=== PATIENT | female | born 1965 | race Caucasian/White ===

== ENCOUNTER 2023-03-19 13:42 | Inpatient (IN) ==
[2023-03-19] MEDS ORDERED: FAMOTIDINE 20MG IV PUSH 20 MG/5 ML SYR IV STA (14:11)
[2023-03-19] MEDS ORDERED: ONDANSETRON INJ 2 MG/ML 2 ML VIAL IV STA ×2 (14:11→15:56)
[2023-03-19] MEDS ORDERED: SODIUM CHLORIDE 0.9% 1,000 ML IV SCH (14:15)
[2023-03-19 14:31] LABS: Basophils # (auto) 0.06 K/uL (0.00-0.20); Basophils % (auto) 0.7 %; Eosinophils # (auto) 0.01 K/uL (0.00-0.50); Eosinophils % (auto) 0.1 %; Hematocrit (blood only) 21.4 % (37.0-47.0); Immature Granulocytes # (auto) 0.03 K/uL (0.01-0.20); Immature Granulocytes % (auto) 0.4 %; Lymphocytes # (auto) 1.02 K/uL (1.20-3.40); Lymphocytes % (auto) 12.4 %; Mean Corpuscular Hemoglobin 26.5 pg (25.0-34.0); Mean Corpuscular Hgb Conc 32.7 g/dL (32.0-36.0); Mean Corpuscular Volume 81.1 fL (80.0-100.0); Mean Platelet Volume 11.7 fL (9.4-12.4); Monocytes # (auto) 0.59 K/uL (0.11-0.59); Monocytes % (auto) 7.2 %; Neutrophils % (auto) 79.2 %; Platelet Count 235 K/uL (130-400); RDW Coefficient of Variation 16.5 % (11.5-14.5); RDW Standard Deviation 48.2 fL (36.4-46.3); Red Blood Count 2.64 M/uL (4.20-5.40); White Blood Count 8.21 K/ul (4.8-10.8)
--- NOTE | 2023-03-19 14:42 | XRay Report ---
XR chest 1V portable HISTORY: 58 years-old Female GIB acute GI bleed COMPARISON: None TECHNIQUE: AP view of the chest FINDINGS: Cardiac mediastinal and hilar silhouettes are within normal limits. Mild bibasilar densities suggesti ve of atelectasis with likely chronic interstitial coarsening. No pneumothorax, pleural effusion or p ulmonary edema. Bones appear grossly intact. IMPRESSION: No acute process. ACT 112: Negative or not required by law. The above report was generated using voice recognition software. It may contain grammatical, syntax o r spelling errors. Electronically signed by: Yifan Jackson M.D. 03/19/2023 2:41 PM
[2023-03-19 14:56] LABS: Alanine Aminotransferase 8 U/L (7-52); Albumin Globulin Ratio 1.2 (0.9-2); Alkaline Phosphatase 50 U/L (34-104); Anion Gap 9 (3-11); Aspartate Aminotransferase 17 U/L (13-39); BUN Creatinine Ratio 60.4 (10-20); Bilirubin Direct 0.2 mg/dl (0-0.2); Bilirubin,Total 0.9 mg/dl (0.2-1.0); Blood Urea Nitrogen 64 mg/dl (6-23); Calcium 7.9 mg/dl (8.6-10.3); Carbon Dioxide 30 mmol/L (21-32); Chloride 103 mmol/L (98-107); Creatinine Clr Calc Pharmacy 46.4 ml/min; Est GFR (Non-African American) 57.8 ml/min; Globulin 2.6 gm/dl (2.5-4.0); Glucose 127 mg/dl (70-99(Fasting)); Lipase 37 U/L (11-82); Magnesium 1.2 mg/dl (1.7-2.4); Potassium 3.7 mmol/L (3.5-5.1); Sodium 142 mmol/L (136-145); Total Protein 5.6 gm/dl (6.0-8.3)
[2023-03-19 15:03] LABS: Troponin I High Sensitivity 9.8 pg/ml (0-14)
[2023-03-19 15:05] LABS: INR 1.3 (0.9-1.1); Partial Thromboplastin Ratio 0.9; Partial Thromboplastin Time 24 Seconds (21-31); Prothrombin Time 14.1 Seconds (9.0-12.0)
[2023-03-19] MEDS ORDERED: OCTREOTIDE ACETATE 50 MCG in SYRINGE 9.5 ML IV STA (15:10)
[2023-03-19] MEDS ORDERED: PANTOprazole 80 MG in DEXTROSE 5% 100 ML IV ONE (15:10)
[2023-03-19] MEDS ORDERED: STAT IV/IM STA (15:10)
[2023-03-19] MEDS ORDERED: PANTOPRAZOLE BOLUS/DRIP IV STA (15:10)
[2023-03-19 15:11] LABS: Hypersegmented Neutrophils 1+; Hypochromasia Present; Ovalocytes 1+
--- NOTE | 2023-03-19 15:12 | Emergency Department Note ---
Impression & Plan Acute GI hemorrhage, Cirrhosis, Esophageal varices, Autoimmune hepatitis, Symptomatic anemia, Hypomagnesemia ED Provider Note NAME: KAYLA VERA AGE: 58 SEX: F ARRIVES VIA: Ambulance INFORMANT: Patient ED PROVIDER(S): Catrachito Dominique MD CHIEF COMPLAINT: GIB bleeding. PLAN: Disposition: Admit MEDICAL DECISION MAKING: The patient is a pleasant 58-year-old woman with a past medical history of autoimmune hepatitis, cirrhosis of the liver, portal hypertension and esophageal and rectal varices, history of GI bleeding, history of intestinal AVMs, chronic hypoxic respiratory failure secondary to COPD on home oxygen, pulmonary hypertension who presents to the emergency department via EMS and then accompanied by friends for evaluation of bloody emesis and black stool that began early this morning and has persisted with several episodes of bloody vomit. Patient reports that this last occurred in December when she was admitted to [facility] and has typically gone for her care for her other episodes of GI bleeding. She reports she elected to come to our facility because she felt that "they did not figure it out there". However review of the [facility] record demonstrates that she did have a colonoscopy where AVMs were noted to not be bleeding but received argon plasma coagulation (APC) treatments for prevention. The patient denies being on anticoagulation. She otherwise denies any recent fevers, chills, cough, congestion, urinary symptoms. On evaluation the patient is uncomfortable but no acute distress, afebrile with soft/low blood pressure, 95/55 (MAP 68) and mentating normally. She appears clinically dry. She has mild pallor. Abdomen is nontender. EKG without overt acute ischemia. Chest x-ray negative for acute cardiopulmonary process per my preliminary independent interpretation. WBC 8.2 within normal limits. H/H 7/21.4 which is decreased from most recently available H/H of 11.4/40.5. Platelets within normal limits. INR 1.3. Chemistry without metabolic acidosis. BUN is elevated at 64 and so consistent with upper GI bleeding. Magnesium 1.2 with IV repletion initiated. Positive troponin 9.8, within normal limits. Lipase not elevated. Respiratory viral panel/[employer] was negative. Treatment was initiated with IV fluid hydration, famotidine, Protonix bolus and drip, octreotide bolus and drip and antiemetics. CT of the abdomen pelvis was performed and demonstrates known cirrhosis with abdominal varicosities and evidence of portal hypertension though no ascites. Distal esophageal and gastric varicosities are noted with layering hyperdense material within the stomach likely secondary to bleeding varicosities. There is no bowel obstruction or pneumoperitoneum. No evidence of likely enteritis is seen. Following CT the patient did have an episode of dark bloody emesis per RN which was Gastroccult positive. Additionally, she eventually did have a dark bloody bowel movement. Given the patient's active GI bleeding with downtrending hemoglobin to 7.0 and low blood pressure/hypotension patient was consented for blood transfusion and ordered for 2 units of PRBCs to transfuse with an additional 2 units to hold. Subsequently, the patient did remain hemodynamically stable following initial IV fluid hydration with 2 L normal saline and initiation of blood transfusion. Case was discussed with Dr. Urrutia, [facility] hospitalist, who will evaluate the patient for admission. Case was discussed with Dr. Larry, GI on-call. Appreciate consultation and recommendations. Agrees with current treatment/resuscitation and plan will be for scope in the morning. Admitting team updated. Triage Nursing notes reviewed and agree them. Prior/external medical records reviewed Vital Signs: reviewed Differential diagnosis: Diverticulosis, AVM, coagulopathy, colitis, inflammatory bowel disease, malignancy, Katya-Glover tear, esophagitis, peptic ulcer disease, variceal bleed, gastritis, epistaxis, fissure, hemorrhoids, as well as other pathologies. ER treatment provided: See below. Diagnostics interpreted by me: ECG: Sinus rhythm with short HI, 85 bpm, no ectopy, no overt ST elevation or depression, QTc 697, QRS 74 Cardiac Monitoring: An order for continuous cardiac monitoring was placed and demonstrated Sinus rhythm with short HI, 85 bpm, no ectopy. Laboratory studies: See below Imaging studies: See below Consultation(s): Dr. Larry, GI on-call Dr. Urrutia [facility] HPI: The patient is a pleasant 58-year-old woman with a past medical history of autoimmune hepatitis, cirrhosis of the liver, portal hypertension and esophageal and rectal varices, history of GI bleeding, history of intestinal AVMs, chronic hypoxic respiratory failure secondary to COPD on home oxygen, pulmonary hypertension who presents to the emergency department via EMS and then accompanied by friends for evaluation of bloody emesis and black stool that began early this morning and has persisted with several episodes of bloody vomit. Patient reports that this last occurred in December when she was admitted to [facility] and has typically gone for her care for her other episodes of GI bleeding. She reports she elected to come to our facility because she felt that "they did not figure it out there". However review of the [facility] record demonstrates that she did have a colonoscopy where AVMs were noted to not be bleeding but received argon plasma coagulation (APC) treatments for prevention. The patient denies being on anticoagulation. She otherwise denies any recent fevers, chills, cough, congestion, urinary symptoms. ROS: See above HPI for pertinent positives & negatives. A total of 10 systems reviewed and were otherwise negative. VITALS:See Below PHYSICAL EXAMINATION: GENERAL: Awake, alert, fatigued/uncomfortable-appearing, in no distress HENT: Normocephalic, atraumatic. Oropharynx with dry mucous membranes and otherwise unremarkable. EYES: Normal conjunctiva. Sclera non-icteric. NECK: Supple. No nuchal rigidity. FROM. No JVD. RESPIRATORY: Clear to auscultation. CARDIAC: Regular rate, normal rhythm. Extremities warm and well perfused. Pulses equal. ABDOMEN: Soft, non-distended. No tenderness to palpation. No rebound or guarding. No masses. RECTAL: Deferred. MUSCULOSKELETAL: Chest examination reveals no tenderness. The back is symmetrical on inspection without obvious abnormality. There is no CVA tenderness to palpation. No joint edema. LOWER EXTREMITIES: Calves are equal size bilaterally and non-tender. No edema. No discoloration. NEURO: Normal sensorium. No sensory or motor deficits noted. SKIN: Mild pallor. No rash or jaundice noted. ED COURSE: Critical Care: I have personally spent greater than 75 minutes of critical care time in the direct management of this patient. This includes bedside care, interpretation of diagnostic studies, and testing, discussion with consultants, patient, and family members, and other required patient management activities. This 75 minutes is in excess of all separately billable procedures. Catrachito Dominique MD Past Med/Surg History Medical History Chronic hypoxic respiratory failure COPD (chronic obstructive pulmonary disease) AVM (arteriovenous malformation) Pulmonary HTN SLE (systemic lupus erythematosus related syndrome) Autoimmune hepatitis Esophageal varices Cirrhosis Acute GI hemorrhage Family History Other Family history non-contributory Social History Smoking Status: Former smoker Feels Safe at Home: Yes Home Meds Home Medications Medication Instructions Recorded Confirmed albuterol sulfate 90 mcg/actuation 2 puff inhalation BID PRN Wheezing 03/19/23 03/19/23 aerosol inhaler ambrisentan 10 mg tablet 10 mg PO DAILY 03/19/23 03/19/23 calcium citrate 200 mg (950 mg) 400 mg PO BID 03/19/23 03/19/23 tablet ferrous sulfate 325 mg (65 mg 325 mg PO BID 03/19/23 03/19/23 iron) tablet (Iron (ferrous sulfate)) fluticasone furoate 200 1 inh inhalation DAILY 03/19/23 03/19/23 mcg-vilanterol 25 mcg/dose inhalation powder (Breo Ellipta) fluticasone propionate 50 2 spray intranasal BID 03/19/23 03/19/23 mcg/actuation nasal spray,suspension gabapentin 300 mg capsule 600 mg HS 03/19/23 03/19/23 lactulose 10 gram/15 mL (15 mL) 30 ml PO TID PRN Constipation 03/19/23 03/19/23 oral solution levothyroxine 150 mcg tablet 150 mcg DAILY 03/19/23 03/19/23 magnesium chloride 64 mg See Rx Instructions .Route .COMPLEX 03/19/23 03/19/23 tablet,extended release mycophenolate mofetil 500 mg tablet 500 mg PO BID 03/19/23 03/19/23 nadolol 40 mg tablet 40 mg QAM 03/19/23 03/19/23 omeprazole 20 mg tablet,delayed 20 mg PO BID 03/19/23 03/19/23 release potassium chloride 20 mEq 20 meq PO DAILY 03/19/23 03/19/23 tablet,extended release spironolactone 100 mg tablet See Rx Instructions .Route .COMPLEX 03/19/23 03/19/23 tadalafil (pulm. hypertension) 20 40 mg QAM 03/19/23 03/19/23 mg tablet (pulmonary hypertension) tiotropium bromide 18 mcg capsule 1 cap inhalation 03/19/23 with inhalation device (Spiriva with HandiHaler) torsemide 20 mg tablet See Rx Instructions .Route .COMPLEX 03/19/23 03/19/23 tramadol 50 mg tablet 100 mg Q6H 03/19/23 03/19/23 trazodone 50 mg tablet 50 mg HS 03/19/23 03/19/23 Results & Data (ED) Vital Signs Vital Signs - 24 hr 03/19/23 13:46 03/19/23 14:07 03/19/23 14:18 Temperature 37.3 C Temperature Source Oral Pulse Rate 84 95 H Pulse Rate [Apical] 90 Pulse Rhythm Pulse Strength Respiratory Rate 16 17 15 Respiratory Effort / Characteristics Non-Labored Spontaneous Non-Labored Spontaneous Respiratory Depth Normal Normal Blood Pressure 95/55 L Blood Pressure [Right Arm] 95/65 L Blood Pressure Mean 68 Blood Pressure Mean [Right Arm] 75 Pulse Oximetry 81 L 91 92 Oxygen Delivery Method Room Air Nasal Cannula Nasal Cannula Oxygen Flow Rate 4 4 Sepsis Recent Fever Within 48 Hours No Sepsis New/Unexplained Change in Mental Status No Sepsis Action Taken by Nursing No Action Required 03/19/23 16:07 03/19/23 16:22 03/19/23 18:00 Temperature 36.8 C Temperature Source Axillary Pulse Rate 79 Pulse Rate [Apical] 83 87 Pulse Rhythm Pulse Strength Respiratory Rate 14 22 Respiratory Effort / Characteristics Respiratory Depth Blood Pressure Blood Pressure [Right Arm] 127/86 89/47 L Blood Pressure Mean Blood Pressure Mean [Right Arm] 99 61 Pulse Oximetry 95 92 Oxygen Delivery Method Nasal Cannula Nasal Cannula Oxygen Flow Rate 3 3 Sepsis Recent Fever Within 48 Hours Sepsis New/Unexplained Change in Mental Status Sepsis Action Taken by Nursing 03/19/23 18:11 03/19/23 18:26 03/19/23 18:41 Temperature 36.8 C 37.2 C 36.9 C Temperature Source Axillary Oral Oral Pulse Rate 83 83 83 Pulse Rate [Apical] Pulse Rhythm Pulse Strength Respiratory Rate 18 19 18 Respiratory Effort / Characteristics Respiratory Depth Blood Pressure 89/47 L 85/53 L 99/57 L Blood Pressure [Right Arm] Blood Pressure Mean 61 63 71 Blood Pressure Mean [Right Arm] Pulse Oximetry 92 91 93 Oxygen Delivery Method Oxygen Flow Rate 3 3 3 Sepsis Recent Fever Within 48 Hours Sepsis New/Unexplained Change in Mental Status Sepsis Action Taken by Nursing 03/19/23 19:11 03/19/23 19:37 03/19/23 20:00 Temperature 36.9 C 37 C 37.5 C Temperature Source Oral Oral Oral Pulse Rate 84 83 76 Pulse Rate [Apical] Pulse Rhythm Regular Pulse Strength Normal Respiratory Rate 15 15 15 Respiratory Effort / Characteristics Respiratory Depth Blood Pressure 100/58 L 92/53 L 82/45 L Blood Pressure [Right Arm] Blood Pressure Mean 72 66 57 Blood Pressure Mean [Right Arm] Pulse Oximetry 94 93 93 Oxygen Delivery Method Oxygen Flow Rate 3 3 4 Sepsis Recent Fever Within 48 Hours Sepsis New/Unexplained Change in Mental Status Sepsis Action Taken by Nursing 03/19/23 20:00 03/19/23 20:15 03/19/23 20:27 Temperature 37.1 C Temperature Source Oral Pulse Rate 78 71 Pulse Rate [Apical] 78 Pulse Rhythm Pulse Strength Respiratory Rate 12 12 Respiratory Effort / Characteristics Respiratory Depth Blood Pressure 103/56 L Blood Pressure [Right Arm] 103/56 L Blood Pressure Mean 71 Blood Pressure Mean [Right Arm] 71 Pulse Oximetry 94 94 Oxygen Delivery Method Nasal Cannula Oxygen Flow Rate 3 3 Sepsis Recent Fever Within 48 Hours Sepsis New/Unexplained Change in Mental Status Sepsis Action Taken by Nursing 03/19/23 20:30 03/19/23 21:00 03/19/23 21:30 Temperature 37 C 37 C 37.1 C Temperature Source Oral Oral Oral Pulse Rate 71 79 75 Pulse Rate [Apical] Pulse Rhythm Pulse Strength Respiratory Rate 18 17 18 Respiratory Effort / Characteristics Respiratory Depth Blood Pressure 94/63 L 89/63 L 97/61 L Blood Pressure [Right Arm] Blood Pressure Mean 73 71 73 Blood Pressure Mean [Right Arm] Pulse Oximetry 100 93 93 Oxygen Delivery Method Oxygen Flow Rate 3 3 3 Sepsis Recent Fever Within 48 Hours Sepsis New/Unexplained Change in Mental Status Sepsis Action Taken by Nursing Laboratory Data Attestation: I reviewed the patient's lab results. 03/19/23 14:17 03/19/23 14:17 Lab Results 03/19/23 03/19/23 03/19/23 Range/Units 14:17 14:38 17:23 WBC 8.21 (4.8-10.8) K/ul RBC 2.64 L (4.20-5.40) M/uL Hgb 7.0 L (12.0-16.0) g/dl Hct 21.4 L (37.0-47.0) % MCV 81.1 (80.0-100.0) fL MCH 26.5 (25.0-34.0) pg MCHC 32.7 (32.0-36.0) g/dL RDW Std Deviation 48.2 H (36.4-46.3) fL RDW Coeff of Paras 16.5 H (11.5-14.5) % Plt Count 235 (130-400) K/uL MPV 11.7 (9.4-12.4) fL Immature Gran % (Auto) 0.4 % Neut % (Auto) 79.2 % Lymph % (Auto) 12.4 % [place] % (Auto) 7.2 % Eos % (Auto) 0.1 % Baso % (Auto) 0.7 % Reticulocyte % (Auto) 1.4 (0.5-2.0) % Neut # (Auto) 6.50 (1.40-6.50) K/uL Lymph # (Auto) 1.02 L (1.20-3.40) K/uL [place] # (Auto) 0.59 (0.11-0.59) K/uL Eos # (Auto) 0.01 (0.00-0.50) K/uL Baso # (Auto) 0.06 (0.00-0.20) K/uL Reticulocyte # 0.04 (0.02-0.10) 10^6/uL Immature Gran # (Auto) 0.03 (0.01-0.20) K/uL Hypersegmented Neuts 1+ Hypochromasia Present Ovalocytes 1+ PT 14.1 H (9.0-12.0) Seconds INR 1.3 H (0.9-1.1) APTT 24 (21-31) Seconds PTT Ratio 0.9 Sodium 142 (136-145) mmol/L Potassium 3.7 (3.5-5.1) mmol/L Chloride 103 (98-107) mmol/L Carbon Dioxide 30 (21-32) mmol/L Anion Gap 9 (3-11) BUN 64 H (6-23) mg/dl Creatinine 1.06 (0.6-1.2) mg/dl Est Cr Clr Drug Dosing 46.4 ml/min Est GFR ( Amer) 67.0 ml/min Est GFR (Non-Af Amer) 57.8 ml/min BUN/Creatinine Ratio 60.4 H (10-20) Glucose 127 H (70-99(Fasting)) mg/dl Calcium 7.9 L (8.6-10.3) mg/dl Magnesium 1.2 L (1.7-2.4) mg/dl Iron TNP Unsaturated IBC 148 L (155-355) mcg/dl Transferrin 246 (200-360) mg/dl Ferritin 19.4 (8-388) ng/ml Total Bilirubin 0.9 (0.2-1.0) mg/dl Direct Bilirubin 0.2 (0-0.2) mg/dl AST 17 (13-39) U/L ALT 8 (7-52) U/L Alkaline Phosphatase 50 (34-104) U/L Troponin I High Sens 9.8 (0-14) pg/ml Total Protein 5.6 L (6.0-8.3) gm/dl Albumin 3.0 L (3.4-5.0) gm/dl Globulin 2.6 (2.5-4.0) gm/dl Albumin/Globulin Ratio 1.2 (0.9-2) Lipase 37 (11-82) U/L POC Stool Occult Blood (Negative) Adenovirus (PCR) Not Detected (NotDetected) B. pertussis DNA (PCR) Not Detected (NotDetected) B.parapertussis DNA PCR Not Detected (NotDetected) C. pneumoniae DNA (PCR) Not Detected (NotDetected) Coronavirus OC43 (PCR) Not Detected (NotDetected) Coronavirus HKU1 (PCR) Not Detected (NotDetected) Coronavirus 229E (PCR) Not Detected (NotDetected) SARS-CoV-2 (PCR) Not Detected (NotDetected) Coronavirus NL63 (PCR) Not Detected (NotDetected) Human Metapneumovir PCR Not Detected (NotDetected) Influenza Type A (PCR) Not Detected (NotDetected) Influenza Type B (PCR) Not Detected (NotDetected) M. pneumoniae (PCR) Not Detected (NotDetected) Parainfluenza 1 (PCR) Not Detected (NotDetected) Parainfluenza 2 (PCR) Not Detected (NotDetected) Parainfluenza 3 (PCR) Not Detected (NotDetected) Parainfluenza 4 (PCR) Not Detected (NotDetected) RSV (PCR) Not Detected (NotDetected) Entero/Rhino (PCR) Not Detected (NotDetected) Blood Type AB Positive Blood Type Recheck AB Positive Antibody Screen NEGATIVE Crossmatch See Detail 03/19/23 Range/Units 18:55 WBC (4.8-10.8) K/ul RBC (4.20-5.40) M/uL Hgb (12.0-16.0) g/dl Hct (37.0-47.0) % MCV (80.0-100.0) fL MCH (25.0-34.0) pg MCHC (32.0-36.0) g/dL RDW Std Deviation (36.4-46.3) fL RDW Coeff of Paras (11.5-14.5) % Plt Count (130-400) K/uL MPV (9.4-12.4) fL Immature Gran % (Auto) % Neut % (Auto) % Lymph % (Auto) % [place] % (Auto) % Eos % (Auto) % Baso % (Auto) % Reticulocyte % (Auto) (0.5-2.0) % Neut # (Auto) (1.40-6.50) K/uL Lymph # (Auto) (1.20-3.40) K/uL [place] # (Auto) (0.11-0.59) K/uL Eos # (Auto) (0.00-0.50) K/uL Baso # (Auto) (0.00-0.20) K/uL Reticulocyte # (0.02-0.10) 10^6/uL Immature Gran # (Auto) (0.01-0.20) K/uL Hypersegmented Neuts Hypochromasia Ovalocytes PT (9.0-12.0) Seconds INR (0.9-1.1) APTT (21-31) Seconds PTT Ratio Sodium (136-145) mmol/L Potassium (3.5-5.1) mmol/L Chloride (98-107) mmol/L Carbon Dioxide (21-32) mmol/L Anion Gap (3-11) BUN (6-23) mg/dl Creatinine (0.6-1.2) mg/dl Est Cr Clr Drug Dosing ml/min Est GFR ( Amer) ml/min Est GFR (Non-Af Amer) ml/min BUN/Creatinine Ratio (10-20) Glucose (70-99(Fasting)) mg/dl Calcium (8.6-10.3) mg/dl Magnesium (1.7-2.4) mg/dl Iron Unsaturated IBC (155-355) mcg/dl Transferrin (200-360) mg/dl Ferritin (8-388) ng/ml Total Bilirubin (0.2-1.0) mg/dl Direct Bilirubin (0-0.2) mg/dl AST (13-39) U/L ALT (7-52) U/L Alkaline Phosphatase (34-104) U/L Troponin I High Sens (0-14) pg/ml Total Protein (6.0-8.3) gm/dl Albumin (3.4-5.0) gm/dl Globulin (2.5-4.0) gm/dl Albumin/Globulin Ratio (0.9-2) Lipase (11-82) U/L POC Stool Occult Blood Positive A (Negative) Adenovirus (PCR) (NotDetected) B. pertussis DNA (PCR) (NotDetected) B.parapertussis DNA PCR (NotDetected) C. pneumoniae DNA (PCR) (NotDetected) Coronavirus OC43 (PCR) (NotDetected) Coronavirus HKU1 (PCR) (NotDetected) Coronavirus 229E (PCR) (NotDetected) SARS-CoV-2 (PCR) (NotDetected) Coronavirus NL63 (PCR) (NotDetected) Human Metapneumovir PCR (NotDetected) Influenza Type A (PCR) (NotDetected) Influenza Type B (PCR) (NotDetected) M. pneumoniae (PCR) (NotDetected) Parainfluenza 1 (PCR) (NotDetected) Parainfluenza 2 (PCR) (NotDetected) Parainfluenza 3 (PCR) (NotDetected) Parainfluenza 4 (PCR) (NotDetected) RSV (PCR) (NotDetected) Entero/Rhino (PCR) (NotDetected) Blood Type Blood Type Recheck Antibody Screen Crossmatch Administered Medications Octreotide Acetate 500 mcg/ (Sodium Chloride) 100.5 mls @ 10.05 mls/hr IV .Q10H PAVEL Stop: 04/18/23 15:14 Last Admin: 03/19/23 15:54 Dose: 50 mcg/hr, 10.1 mls/hr Documented By: YUSUF Pantoprazole Sodium 40 mg/ (Dextrose) 100 mls @ 20 mls/hr IV Q5H PAVEL Stop: 04/18/23 15:29 Last Admin: 03/19/23 16:01 Dose: 8 mg/hr, 20 mls/hr Documented By: YUSUF Discontinued Medications Sodium Chloride (Nss) 1,000 mls @ 999 mls/hr IV .Q1H1M PAVEL Stop: 03/19/23 15:15 Last Infusion: 03/19/23 17:07 Dose: Infused Documented By: Admin: 03/19/23 15:13 Dose: 999 mls/hr Documented By: YUSUF Famotidine (Pepcid 20mg Iv Push) 20 mg in 5 mls @ 2.5 mls/min IV NOW STA Stop: 03/19/23 14:12 Last Admin: 03/19/23 15:12 Dose: 2.5 mls/min Documented By: YUSUF Pantoprazole Sodium 80 mg/ (Dextrose) 120 mls @ 400 mls/hr IV NOW ONE Stop: 03/19/23 15:27 Last Infusion: 03/19/23 16:37 Dose: Infused Documented By: Admin: 03/19/23 16:00 Dose: 400 mls/hr Documented By: YUSUF Magnesium Sulfate/Dextrose (Magnesium Sulfate / D5w) 1 gm in 100 mls @ 100 mls/hr IV Q1H PAVEL Stop: 03/19/23 18:17 Last Infusion: 03/19/23 19:03 Dose: Infused Documented By: Admin: 03/19/23 17:48 Dose: 100 mls/hr Documented By: Infusion: 03/19/23 17:48 Dose: Infused Documented By: Admin: 03/19/23 16:50 Dose: 100 mls/hr Documented By: JIMMIE Ioversol (Optiray 320 500ml) 94 ml IV ONCE ONE Stop: 03/19/23 15:46 Last Admin: 03/19/23 15:45 Dose: 94 ml Documented By: HARLEY Octreotide Acetate (Octreotide Bolus From Bag) 50 mcg IV ONE ONE Stop: 03/19/23 16:01 Last Admin: 03/19/23 15:55 Dose: 50 mcg Documented By: YUSUF Ondansetron HCl (Ondansetron Inj 2 Mg/Ml 2 Ml Vial) 4 mg IV NOW STA Stop: 03/19/23 14:12 Last Admin: 03/19/23 15:48 Dose: Not Given Documented By: YUSUF Ondansetron HCl (Ondansetron Inj 2 Mg/Ml 2 Ml Vial) 4 mg IV NOW STA Stop: 03/19/23 15:57 Last Admin: 03/19/23 15:58 Dose: 4 mg Documented By: YUSUF Imaging Data Radiologist's Impression: Chest X-Ray 03/19/23 14:11 XR chest 1V portable HISTORY: 58 years-old Female GIB acute GI bleed COMPARISON: None TECHNIQUE: AP view of the chest FINDINGS: Cardiac mediastinal and hilar silhouettes are within normal limits. Mild bibasilar densities suggestive of atelectasis with likely chronic interstitial coarsening. No pneumothorax, pleural effusion or pulmonary edema. Bones appear grossly intact. IMPRESSION: No acute process. ACT 112: Negative or not required by law. The above report was generated using voice recognition software. It may contain grammatical, syntax or spelling errors. Electronically signed by: Yifan Jackson M.D. 03/19/2023 2:41 PM Abdomen/Pelvis CT 03/19/23 15:[address] WITH IV CONTRAST CT DOSE: 349.67 mGy.cm HISTORY: Acute generalized abdominal pain hematemesis/melena TECHNIQUE: Multiaxial CT images of the abdomen and pelvis were performed following the IV administration of 94 cc of Optiray, A dose lowering technique was utilized adhering to the principles of ALARA. COMPARISON STUDY: None. FINDINGS: Mild subsegmental bibasilar atelectasis versus scarring. No free air. Unremarkable spleen, pancreas and right adrenal gland. Mild benign nodular thickening of the left adrenal gland. Cholecystectomy. Patency of the hepatic and portal veins. Sclerotic liver with abdominal varicosities. Recanalized umbilical vein. No discrete hepatic mass identified. Unremarkable left kidney. Right-sided rotated pelvic kidney. There is urothelial thickening of the right renal collecting system. Unremarkable urinary bladder and uterus. Atherosclerosis of the aorta without aneurysm. Borderline enlarged retroperitoneal lymph nodes measure up to 10 mm with subcentimeter lymph nodes of the mesenteric root. Distal esophageal an gastric varicosities. Layering hyperdense material within the stomach. No bowel obstruction. Internal hemorrhoids are suggested. Scattered large and small bowel air-fluid levels. Mild wall thickening noted within portions of the large bowel. Normal appendix. Small bowel loops measure up to 2.6 cm. No acute fracture. IMPRESSION: 1. Cirrhosis with abdominal varicosities and recanalized umbilical vein compatible with portal venous hypertension. No ascites. 2. Distal esophageal and gastric varicosities noted with layering hyperdense material within the stomach, likely secondary to bleeding varicosities. 3. No bowel obstruction or pneumoperitoneum. 4. Scattered large and small bowel air-fluid levels noted which may be physiologic or represent an enteritis or ileus. 5. Areas of wall thickening within the large bowel, likely secondary to portal colopathy. 6. Mild right-sided urothelial thickening. Correlate with urinalysis in order to exclude infection. ACT 112: Negative or not required by law. The above report was generated using voice recognition software. It may contain grammatical, syntax or spelling errors. Electronically signed by: Yifan Jackson M.D. 03/19/2023 4:30 PM Discharge Plan Visit Data Chief Complaint: GI Bleed Stated Complaint: GI BLEED ED Provider: Catrachito Dominique Discharge Problem: Acute GI hemorrhage, Cirrhosis, Esophageal varices, Autoimmune hepatitis, Symptomatic anemia, Hypomagnesemia Forms Stand Alone Forms: My [facility] [email or web address] Prescriptions Prescriptions: No Action mycophenolate mofetil 500 mg tablet 500 mg PO BID levothyroxine 150 mcg tablet 150 mcg DAILY gabapentin 300 mg capsule 600 mg HS albuterol sulfate 90 mcg/actuation HFA aerosol inhaler 2 puff INHALATION BID PRN (Reason: Wheezing) ambrisentan 10 mg tablet 10 mg PO DAILY fluticasone furoate-vilanterol [Breo Ellipta] 200-25 mcg/dose blister with device 1 inh INHALATION DAILY torsemide 20 mg tablet See Rx Instructions .ROUTE .COMPLEX Rx Instructions: Take 4 tabs daily trazodone 50 mg tablet 50 mg HS spironolactone 100 mg tablet See Rx Instructions .ROUTE .COMPLEX Rx Instructions: 1.5 tabs qAM tramadol 50 mg tablet 100 mg Q6H nadolol 40 mg tablet 40 mg QAM fluticasone propionate 50 mcg/actuation spray,suspension 2 spray INTRANASAL BID tiotropium bromide [Spiriva with HandiHaler] 18 mcg capsule, w/inhalation device 1 cap INHALATION tadalafil (pulm. hypertension) 20 mg tablet 40 mg QAM Slow-Mag 64 mg Tablet Extended Release See Rx Instructions .ROUTE .COMPLEX Rx Instructions: 4 tabs qAM ferrous sulfate [Iron (ferrous sulfate)] 325 mg (65 mg iron) Tablet 325 mg PO BID calcium citrate 200 mg (950 mg) Tablet 400 mg PO BID omeprazole 20 mg Tablet,Delayed Release (Dr/Ec) 20 mg PO BID lactulose 10 gram/15 mL (15 mL) Solution 30 ml PO TID PRN (Reason: Constipation) potassium chloride 20 mEq Tablet Extended Release 20 meq PO DAILY Referrals Referrals: PCP,NO [Physician] - Discharge Problem: Cirrhosis Qualifiers: Hepatic cirrhosis type: unspecified hepatic cirrhosis Ascites presence: without ascites Qualified Code(s): K74.60 - Unspecified cirrhosis of liver Esophageal varices Qualifiers: Esophageal varices type: unspecified type Esophageal varices bleeding: with bleeding Qualified Code(s): I85.01 - Esophageal varices with bleeding
[2023-03-19 15:34] LABS: Adenovirus PCR Not Detected (NotDetected); Bordetella parapertussis PCR Not Detected (NotDetected); Bordetella pertussis PCR Not Detected (NotDetected); Chlamydia pneumoniae PCR Not Detected (NotDetected); Coronavirus 229E PCR Not Detected (NotDetected); Coronavirus CoV-2 (COVID19)PCR Not Detected (NotDetected); Coronavirus HKU1 PCR Not Detected (NotDetected); Coronavirus NL63 PCR Not Detected (NotDetected); Coronavirus OC43PCR Not Detected (NotDetected); Human Metapneumovirus PCR Not Detected (NotDetected); Influenza A PCR Not Detected (NotDetected); Influenza B PCR Not Detected (NotDetected); Mycoplasma pneumoniae PCR Not Detected (NotDetected); Parainfluenza Virus 1 PCR Not Detected (NotDetected); Parainfluenza Virus 2 PCR Not Detected (NotDetected); Parainfluenza Virus 3 PCR Not Detected (NotDetected); Parainfluenza Virus 4 PCR Not Detected (NotDetected); Respiratory Syncytial VirusPCR Not Detected (NotDetected); Rhinovirus/Enterovirus PCR Not Detected (NotDetected)
[2023-03-19] MEDS ORDERED: OPTIRAY 320 500ml IV ONE (15:45)
[2023-03-19] MEDS: OCTREOTIDE ACETATE 500 MCG in 0.9 % SODIUM CHLORIDE 100 ML IV SCH ×2 (15:54→23:02)
[2023-03-19] MEDS ORDERED: OCTREOTIDE BOLUS FROM BAG IV ONE (16:00)
[2023-03-19] MEDS: PANTOprazole 40 MG in DEXTROSE 5% MINI-B 100 ML IV SCH ×2 (16:01→21:34)
[2023-03-19] MEDS ORDERED: SODIUM CHLORIDE 0.9% 250 ML IV PRN (16:07)
[2023-03-19 16:25] LABS: Reticulocyte % 1.4 % (0.5-2.0); Reticulocytes # 0.04 10^6/uL (0.02-0.10)
--- NOTE | 2023-03-19 16:32 | CT Scan Report ---
ABDOMEN AND PELVIS CT WITH IV CONTRAST CT DOSE: 349.67 mGy.cm HISTORY: Acute generalized abdominal pain hematemesis/melena TECHNIQUE: Multiaxial CT images of the abdomen and pelvis were performed following the IV administrat ion of 94 cc of Optiray, A dose lowering technique was utilized adhering to the principles of ALARA. COMPARISON STUDY: None. FINDINGS: Mild subsegmental bibasilar atelectasis versus scarring. No free air. Unremarkable spleen, pancreas and right adrenal gland. Mild benign nodular thickening of the left adrenal gland. Cholecyst ectomy. Patency of the hepatic and portal veins. Sclerotic liver with abdominal varicosities. Recanal ized umbilical vein. No discrete hepatic mass identified. Unremarkable left kidney. Right-sided rotated pelvic kidney. There is urothelial thickening of the ri ght renal collecting system. Unremarkable urinary bladder and uterus. Atherosclerosis of the aorta wi thout aneurysm. Borderline enlarged retroperitoneal lymph nodes measure up to 10 mm with subcentimete r lymph nodes of the mesenteric root. Distal esophageal an gastric varicosities. Layering hyperdense material within the stomach. No bowel obstruction. Internal hemorrhoids are suggested. Scattered large and small bowel air-fluid levels. Mi ld wall thickening noted within portions of the large bowel. Normal appendix. Small bowel loops measu re up to 2.6 cm. No acute fracture. IMPRESSION: 1. Cirrhosis with abdominal varicosities and recanalized umbilical vein compatible with portal venous hypertension. No ascites. 2. Distal esophageal and gastric varicosities noted with layering hyperdense material within the stom ach, likely secondary to bleeding varicosities. 3. No bowel obstruction or pneumoperitoneum. 4. Scattered large and small bowel air-fluid levels noted which may be physiologic or represent an en teritis or ileus. 5. Areas of wall thickening within the large bowel, likely secondary to portal colopathy. 6. Mild right-sided urothelial thickening. Correlate with urinalysis in order to exclude infection. ACT 112: Negative or not required by law. The above report was generated using voice recognition software. It may contain grammatical, syntax o r spelling errors. Electronically signed by: Yifan Jackson M.D. 03/19/2023 4:30 PM
[2023-03-19 16:35] LABS: Transferrin 246 mg/dl (200-360); Unsaturated Iron Binding Cap 148 mcg/dl (155-355)
[2023-03-19] MEDS: MAGNESIUM SULFATE / D5W 1 GM/100 ML BAG IV SCH ×2 (16:50→17:48)
[2023-03-19 17:05] LABS: Ferritin 19.4 ng/ml (8-388)
--- NOTE | 2023-03-19 18:10 | History & Physical Report ---
Date of Service March 19, 2023 Assessment & Plan (1) Acute GI hemorrhage: (2) Cirrhosis: (3) Esophageal varices: (4) Autoimmune hepatitis: (5) SLE (systemic lupus erythematosus related syndrome): (6) Pulmonary HTN: (7) AVM (arteriovenous malformation): (8) DDD (degenerative disc disease), thoracolumbar: (9) Insomnia: (10) COPD (chronic obstructive pulmonary disease): Plan Pt is a 58yoF with PMhx significant for cirrhosis with esophageal varices and AVMs, autoimmune hepatitis, COPD on chronic oxygen, pulmonary HTN, DDD, Graves s/p thyroidectomy with postop hypothyroidism, and insomnia admitted with an acute GI bleed. Acute GI Bleed Cirrhosis with esophageal varices AVM Hypotension Pt with recurrent episodes of hematemesis and melena Hgb 7.[address] abdomen pelvis noting cirrhosis with abdominal varicosities and findings solorio ggestive of portal venous hypertension. Also noted "distal esophageal and gastric varicosities with layering hyperdense material within the stomach, likely secondary to bleeding varicosities." Started on ppi drip and octreotide in the ED, continue Currently being transfused 2U pRBCs by the ED, continue IV Rocephin 1g for GI prophylaxis in the setting of an acute GI Bleed with cirrhosis, continue daily Pt received a fluid bolus for hypotension, continue to monitor BP GI consult- appreciate recs -Case discussed with Dr. Larry on 03/19, advised to continue ppi and octreotide drip and keep pt NPO at this time in case there is a need for emergent scope overnight if there is an acute bleed. In the setting of acute GI bleed with Hypotension, will hold home torsemide, nadolol and spironolactone. Appreciate GI recs for when to resume. Once able to take PO, resume the following: pulmonary HTN- continue home tadalafil (or formulary alternative) and ambrisentan COPD- continue home oxygen and inhalers Hypothyroidism- continue home levothyroxine Autoimmune hepatitis, SLE- continue home cellcept DDD- continue home gabapentin, tramadol Insomnia- continue home trazodone DVT prophylaxis: SCDs in setting of acute GI bleed requiring transfusion CODE STATUS: Full code Diet: Currently NPO Dispo: PCU/tele History of Present Illness Chief Complaint: hematemesis Primary Care Provider: Reggie Eddy MD Pt is a 58yoF with PMhx significant for cirrhosis with esophageal varices and AVMs, autoimmune hepatitis, COPD on chronic oxygen, pulmonary HTN, DDD, Graves s/p thyroidectomy with postop hypothyroidism, and insomnia admitted with an acute GI bleed. Pt notes that she had a similar episode a few months ago requiring admission to [facility]. States that she had a colonoscopy then that showed nonbleeding AVMs. Chart review shows that she was treated with argon therapy at that time (argon plasma coagulation). States that about 3AM this morning she started having repeated episodes of bloody emesis, notes 6 episodes in all at home and 1 in the ED. Also had dark stools. Denies dizziness, chest pain, SOB. States that she was told to increase her torsemide dose recently due to swelling. Follows with a logging assistant for pulm HTN. Recently discharged on 2L of oxygen to use with ambulation and at rest as well as at nighttime. Takes lactulose on a prn basis, states when she feels constipated. Notes she typically has a BM every day. Denies episodes of melena in the ED. Home Medications Medication Instructions Recorded Confirmed Type albuterol sulfate 90 mcg/actuation 2 puff inhalation BID PRN Wheezing 03/19/23 03/19/23 History aerosol inhaler ambrisentan 10 mg tablet 10 mg PO DAILY 03/19/23 03/19/23 History calcium citrate 200 mg (950 mg) 400 mg PO BID 03/19/23 03/19/23 History tablet ferrous sulfate 325 mg (65 mg 325 mg PO BID 03/19/23 03/19/23 History iron) tablet (Iron (ferrous sulfate)) fluticasone furoate 200 1 inh inhalation DAILY 03/19/23 03/19/23 History mcg-vilanterol 25 mcg/dose inhalation powder (Breo Ellipta) fluticasone propionate 50 2 spray intranasal BID 03/19/23 03/19/23 History mcg/actuation nasal spray,suspension gabapentin 300 mg capsule 600 mg HS 03/19/23 03/19/23 History lactulose 10 gram/15 mL (15 mL) 30 ml PO TID PRN Constipation 03/19/23 03/19/23 History oral solution levothyroxine 150 mcg tablet 150 mcg DAILY 03/19/23 03/19/23 History magnesium chloride 64 mg See Rx Instructions .Route .COMPLEX 03/19/23 03/19/23 History tablet,extended release mycophenolate mofetil 500 mg tablet 500 mg PO BID 03/19/23 03/19/23 History nadolol 40 mg tablet 40 mg QAM 03/19/23 03/19/23 History omeprazole 20 mg tablet,delayed 20 mg PO BID 03/19/23 03/19/23 History release potassium chloride 20 mEq 20 meq PO DAILY 03/19/23 03/19/23 History tablet,extended release spironolactone 100 mg tablet See Rx Instructions .Route .COMPLEX 03/19/23 03/19/23 History tadalafil (pulm. hypertension) 20 40 mg QAM 03/19/23 03/19/23 History mg tablet (pulmonary hypertension) tiotropium bromide 18 mcg capsule 1 cap inhalation 03/19/23 History with inhalation device (Spiriva with HandiHaler) torsemide 20 mg tablet See Rx Instructions .Route .COMPLEX 03/19/23 03/19/23 History tramadol 50 mg tablet 100 mg Q6H 03/19/23 03/19/23 History trazodone 50 mg tablet 50 mg HS 03/19/23 03/19/23 History Past Med/Surg History Social History Smoking Status: Former smoker Feels Safe at Home: Yes Review of Systems Review of Systems: All systems reviewed & are unremarkable except as noted in HPI & below Physical Exam Physical Exam: General: Alert, oriented. No acute distress Skin: No noted rashes or bruises Psych: Appropriate mood and affect Neuro: No gross deficits HEENT: NC/AT Chest: Nontender to palpation. CV: RRR Resp: Breath sounds clear bilaterally, no increased effort of breathing. Abdomen:Soft, nontender, nondistended. Extremities: No edema in lower extremities bilaterally. Results & Data Results & Data Vital Signs (Past 12 Hours) Vital Signs Temp Pulse Pulse Resp BP BP Pulse Ox 03/19/23 18:00 36.8 C 87 22 89/47 L 92 03/19/23 16:22 79 03/19/23 16:07 83 14 127/86 95 03/19/23 14:18 95 H 15 92 03/19/23 14:07 90 17 95/65 L 91 03/19/23 13:46 37.3 C 84 16 95/55 L 81 L O2 Del Method O2 Flow Rate 03/19/23 18:00 Nasal Cannula 3 03/19/23 16:22 03/19/23 16:07 Nasal Cannula 3 03/19/23 14:18 Nasal Cannula 4 03/19/23 14:07 Nasal Cannula 4 03/19/23 13:46 Room Air Diagnostic Findings Chest X-Ray 03/19/23 14:11 XR chest 1V portable HISTORY: 58 years-old Female GIB acute GI bleed COMPARISON: None TECHNIQUE: AP view of the chest FINDINGS: Cardiac mediastinal and hilar silhouettes are within normal limits. Mild bibasilar densities suggestive of atelectasis with likely chronic interstitial coarsening. No pneumothorax, pleural effusion or pulmonary edema. Bones appear grossly intact. IMPRESSION: No acute process. ACT 112: Negative or not required by law. The above report was generated using voice recognition software. It may contain grammatical, syntax or spelling errors. Electronically signed by: Yifan Jackson M.D. 03/19/2023 2:41 PM Abdomen/Pelvis CT 03/19/23 15:[address] WITH IV CONTRAST CT DOSE: 349.67 mGy.cm HISTORY: Acute generalized abdominal pain hematemesis/melena TECHNIQUE: Multiaxial CT images of the abdomen and pelvis were performed following the IV administration of 94 cc of Optiray, A dose lowering technique was utilized adhering to the principles of ALARA. COMPARISON STUDY: None. FINDINGS: Mild subsegmental bibasilar atelectasis versus scarring. No free air. Unremarkable spleen, pancreas and right adrenal gland. Mild benign nodular thickening of the left adrenal gland. Cholecystectomy. Patency of the hepatic and portal veins. Sclerotic liver with abdominal varicosities. Recanalized umbilical vein. No discrete hepatic mass identified. Unremarkable left kidney. Right-sided rotated pelvic kidney. There is urothelial thickening of the right renal collecting system. Unremarkable urinary bladder and uterus. Atherosclerosis of the aorta without aneurysm. Borderline enlarged retroperitoneal lymph nodes measure up to 10 mm with subcentimeter lymph nodes of the mesenteric root. Distal esophageal an gastric varicosities. Layering hyperdense material within the stomach. No bowel obstruction. Internal hemorrhoids are suggested. Scattered large and small bowel air-fluid levels. Mild wall thickening noted within portions of the large bowel. Normal appendix. Small bowel loops measure up to 2.6 cm. No acute fracture. IMPRESSION: 1. Cirrhosis with abdominal varicosities and recanalized umbilical vein compatible with portal venous hypertension. No ascites. 2. Distal esophageal and gastric varicosities noted with layering hyperdense material within the stomach, likely secondary to bleeding varicosities. 3. No bowel obstruction or pneumoperitoneum. 4. Scattered large and small bowel air-fluid levels noted which may be physiologic or represent an enteritis or ileus. 5. Areas of wall thickening within the large bowel, likely secondary to portal colopathy. 6. Mild right-sided urothelial thickening. Correlate with urinalysis in order to exclude infection. ACT 112: Negative or not required by law. The above report was generated using voice recognition software. It may contain grammatical, syntax or spelling errors. Electronically signed by: Yifan Jackson M.D. 03/19/2023 4:30 PM
[2023-03-19] MEDS ORDERED: cefTRIAXone SODIUM 1,000 MG in DEXTROSE 5 % MINI-B 50 ML IV STA (20:34)
--- OUTSIDE RECORDS SUMMARY | 2023-03-19 22:26 | External Medical Summary | Summary of Care ---
Author Name Unknown Organization [facility] Address [address] [place] [address] Phone [phone] Care Team Providers Care Restoration Technician Name Role Phone Reggie Eddy DO Primary Care Provid er Encounter Details Date Type Department Care Team (Late st Contact Info) Description 03/16/2023 Telephone Pulmonary Medicine, [place] [address] [place] [address] Twin Hayden MD [address] [place] [address] Allergies Active Allergy Reactions Criticality Noted Date Comments Hydromorphone Hcl Itching Medium 11/09/2015 Environmental Low 05/04/2010 Pollen -asthmatic attacks documented as of this encounter (statuses as of 03/16/2023) Medications Medication Sig Dispensed Refills Start Date End Date Status Ascorbic Acid (VITAMIN C-CORWIN HIPS) 1000 MG TABS Take 1 Tablet by mouth in the morning. 0 Active Ferrous Sulfate 325 (65 Fe) MG Oral Tablet (Feosol) Take 1 Tab by mouth 2 times a day. 60 Tab 11 06/13/2020 Active Nebulizer Device For use with duoneb treatment 1 Each 0 06/13/2020 Active Calcium Citrate 200 MG Oral TabletIndications:Hy pocalcemia Take 400 mg by mouth 2 times a day. 120 Tab 0 10/09/2020 Active Lactulose 10 GM/15ML Oral Solution (Constulose)Indicati ons:Cirrhosis of liver with ascites, unspecified hepatic cirrhosis type TAKE 30 ML BY MOUTH 3 TIMES A DAY 2838 mL 5 05/10/2021 Active Additional Information Patient taking differently: 20 g Oral PRN, Constipation, Reported on 12/21/2022 Magnesium Chloride 64 MG Oral Tablet Delayed Release (Mag-64)Indications: Hypomagnesemia Take by mouth 4 Tablets in the morning. 360 Tablet 3 10/25/2021 Active Klor-Con M20 20 MEQ Oral Tablet Extended Release (Potassium Chloride Gianna ER) TAKE 2 TABLETS BY MOUTH IN THE MORNING. 180 Tablet 1 11/19/2021 Active Albuterol Sulfate HFA 108 (90 Base) MCG/ACT Inhalation Aerosol SolutionIndications: Sinobronchitis Inhale 2 Puffs by mouth every 4 hours as needed for Shortness of Breath or Wheezing. 18 g 5 03/11/2022 Active Spiriva HandiHaler 18 MCG Inhalation Capsule (tiotropium bromide) Inhale 1 Capsule by mouth in the morning. . Do not swallow capsule.. 30 Capsule 5 05/20/2022 Active Gabapentin 300 MG Oral Capsule (Neurontin)Indicatio ns:DDD (degenerative disc disease), cervical,DDD (degenerative disc disease), thoracic,DDD (degenerative disc disease), lumbar Take 2 Capsules by mouth at bedtime. Take one cap by mouth at bedtime for two weeks, then may increase to 2 caps at bedtimes 180 Capsule 1 06/20/2022 Active Fluticasone Furoate-Vilanterol 200-25 MCG/ACT Inhalation Aerosol Powder Breath Activated (BREO ellipta) Inhale 1 Puff by mouth in the morning. 60 Each 11 09/08/2022 Active Ipratropium-Albutero l 0.5-2.5 (3) MG/3ML Inhalation Solution (Duoneb) Inhale 3 mL via nebulizer in the morning and 3 mL at noon and 3 mL in the evening and 3 mL before bedtime. 3600 mL 11 09/09/2022 Active Additional Information Patient taking differently:3 mL [id number] PRN, Dyspnea, Reported on 12/21/2022 Mycophenolate Mofetil 500 MG Oral Tablet (Cellcept)Indication s:Autoimmune hepatitis (HCC) Take 1 Tablet by mouth in the morning and 1 Tablet before bedtime. 180 Tablet 1 09/09/2022 Active Fluticasone Propionate 50 MCG/ACT Nasal Suspension (Flonase)Indications :Nasal congestion Administer 2 Sprays into nostril in the morning. 48 mL 3 09/09/2022 Active Spironolactone 100 MG Oral Tablet (Aldactone)Indicatio ns:Esophageal varices in cirrhosis (HCC) TAKE 1 AND 1/2 TABLETS BY MOUTH EVERY DAY 135 Tablet 1 09/25/2022 Active Additional Information Patient taking differently: 150 mg Oral Daily(AM), TAKE 1 AND 1/2 TABLETS BY MOUTH EVERY DAY, Reported on 12/21/2022 Levothyroxine Sodium 150 MCG Oral Tablet (Levoxyl)Indications :Postoperative hypothyroidism TAKE 1 TABLET BY MOUTH DAILY IN THE MORNING. (AT LEAST 30 MIN PRIOR TO BREAKFAST OR OTHER MEDS) 90 Tablet 1 11/23/2022 Active Nadolol 40 MG Oral Tablet (Corgard)Indications :Rectal varices,Esophageal varices in cirrhosis (HCC) TAKE 1 TABLET BY MOUTH EVERY DAY IN THE MORNING 90 Tablet 1 11/23/2022 Active Tadalafil (PAH) 20 MG Oral Tablet Take 2 Tablets by mouth in the morning. 30 Tablet 11 12/30/2022 Active oxygen IN GAS 2 liters at night, at rest, and with ambulation 1 Each 0 12/30/2022 Active Additional Information Patient taking differently: 3 L/min(Oxygen) Nasal cannula HS, 2 liters with ambulation, Reported on 03/16/2023 Omeprazole 20 MG Oral Capsule Delayed Release (PriLOSEC)Indication s: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 Take 1 Capsule by mouth in the morning and 1 Capsule before bedtime. 60 Capsule 0 01/03/2023 Active traMADol HCl 50 MG Oral Tablet (Ultram)Indications: MEDICATION USE AGREEMENT,DDD (degenerative disc disease), cervical,DDD (degenerative disc disease), thoracic,DDD (degenerative disc disease), lumbar Take 2 Tablets by mouth every 6 hours as needed for Pain, Moderate. 240 Tablet 0 02/11/2023 Active traZODone HCl 50 MG Oral Tablet (Desyrel)Indications :Primary insomnia Take 1 Tablet by mouth at bedtime. 90 Tablet 1 02/10/2023 Active Ambrisentan 10 MG Oral Tablet (Letairis)Indication s:PAH (pulmonary artery hypertension) (HCC) TAKE 1 TABLET BY MOUTH 1 TIME A DAY. DO NOT HANDLE IF . DO NOT SPLIT, CRUSH, OR CHEW. AVOID INHALATION AND CONTACT WITH SKIN OR EYES. 30 Tablet 5 02/10/2023 Active Torsemide 20 MG Oral Tablet (Demadex)Indications :Cirrhosis of liver with ascites, unspecified hepatic cirrhosis type TAKE 2 TABLETS BY MOUTH EVERY MORNING 180 Tablet 1 02/16/2023 Active documented as of this encounter (statuses as of 03/16/2023) Active Problems Problem Noted Date Diagnosed Date Hematochezia 01/02/2023 Arteriovenous malformation (AVM) 01/02/2023 Lactic acidosis 12/31/2022 Iron deficiency anemia due to chronic blood loss 12/22/2022 Shock 12/21/2022 Pleural effusion 12/21/2022 Acute pulmonary edema 12/21/2022 Anemia 12/21/2022 Pain of upper abdomen 12/21/2022 Immunodeficiency 12/20/2022 Other cirrhosis of liver 03/16/2022 Raynaud's disease without gangrene 08/26/2021 Ovarian cyst, right 03/19/2021 Ovarian cyst, left 01/26/2021 Other specified disorders of adrenal gland 08/24 Pulmonary hypertension 06/30/2020 COPD, group C, by GOLD 2017 classification 06/15 Overview: Per COPD GOLD Classification Other emphysema 06/10/2020 Other ascites 12/23/2019 Portal hypertension 12/23/2019 Spinal stenosis of lumbar re gion without neurogenic claudication 08/15/2019 Pain aggravated by changing postions 08/15/2019 Prediabetes 03/18/2019 Overview: Per Prediabetes protocol Influenza vaccination declined 12/20/2018 Systemic lupus erythematosus 07/27/2017 Overview: Initial sx & Dx: sicca, Raynauds, rash o 1995: joint pain, weight loss, arm paresthesias, racing heart, (+) MARY and thyroid abn - saw Dr. Pantoja, dx with SLE and Grave's o Lost to follow up- moved to [place] o 2009: Dx with AIH: incomplete cirrhosis found incidentally at time of cholecystectomy when liver bx obtained; grade 1 varices; MARY , ASMA positive - Tx pred initially then Imuran 08/19 then MMF in 08/20 when she developed ascites o 2010: Rheum exam- not typical SLE sx- negative/normal C3/C4, SSA/SSB, centromere, CLINICAL QUALITY RN/Sm, ESR,CRP. dsDNA borderline. [place] unlikely SLE. o 2012: Seen again by Rheum- Dr. Jung- photosensitive rash and raynauds. Borderline dsDNA. [place] likely SLE, though possible AIH could explain (+) MARY. HCQ discussed but wanted to avoid by GI. o [id number]: multiple hospitalizations for ascites; returned to Rheum 2019- no objective synovitis Esophageal varices in cirrhosis 07/27/2017 MEDICATION USE AGREEMENT 06/13/2017 Disordered sleep 12/14/2016 Controlled substance agreement signed 09/15/2015 Acute on chronic respiratory failure with hypoxi a 06/12/2015 Bright red blood per rectum 12/20/2012 Overview: colonoscopy Normocytic anemia 12/19/2012 PPD positive, treated 12/17/2012 Serologic abnormality 07/05/2010 Esophageal reflux 05/19/2010 Postoperative hypothyroidism 01/23/2002 HISTORY OF TOBACCO USE 01/23/2002 Autoimmune hepatitis documented as of this encounter (statuses as of 03/16/2023) Resolved Problems Problem Noted Date Diagnosed Date Resolved Date Rhinovirus infection 06/08/2020 022 Oliguria 12/23/2019 12/26/2019 UTI (urinary tract infection) 12/07/2019 12/08/2019 Delirium 12/07/2019 12/08/2019 Hypophosphatemia 12/07/2019 03/16/2022 Hypokalemia 12/06/2019 12/08/2019 Hypocalcemia 12/06/2019 03/16/2022 Compensated metabolic alkalosis 12/06/2019 12/08/2019 Acute cystitis without hematuria 12/06/2019 12/08/2019 Numbness and tingling of both legs 08/15/2019 12/08/2019 Numbness and tingling in both hands 08/15/2019 12/08/2019 Influenza A 06/17/2015 05/31/2018 Rotator cuff syndrome 08/07/20142018 ADVANCE DIRECTIVE INFORMATION 05/06/2013 01/01/2019 Overview: No, Advance Directive brochure given to patient. Systemic lupus erythematosus 02/05/2013 02/24/2017 Rectal varices 12/20/2012 05/31/2018 Ulnar nerve entrapment at elbow 12/17/2012 05/31/2018 Esophageal varices in cirrhosis 12/17/2012 02/24/2017 Cataract 09/27/2012 05/31/2018 Overview: ICD-10 update of inactive term Polyarthropathy or polyarthr itis of multiple sites 07/05/2010 12/17/2012 Overview: ICD-10 update of inactive term Cirrhosis 03/16/2022 documented as of this encounter (statuses as of 03/16/2023) Immunizations Name Administration Dates Next Due HEP A - Hepatitis A (Adult > 18 yrs) 09/15/2015 HEP B - Hepatitis B (Dialysis/Immumocomp Pt) HepA Inact/HepB Recomb>=18yrs old 10/08/2012 Hepatitis B, 20+ yrs 09/15/2015 PPD 09/28/2010,09/07/2010 Pneumococcal Polysaccharide PPV23 (Pneumovax) TDAP (age 10 and older)(Boostrix) 09/05/2022,02/2015 documented as of this encounter Social History Tobacco Use Types Packs/Day Years Used Date Smoking Tobacco: Former Cigarettes 0.3 25 Smokeless Tobacco: Never Comments:5-6 a day Alcohol Use Standard Drinks/Week Comments No 0 (1 standard drink = 0.6 oz pur e alcohol) PHQ-2 Answer Date Recorded PHQ Adult Total Score 0 02/22/2023 Hunger Vital Sign Answer Date Recorded Within the past 12 months, y ou worried that your food would run out before you got the money to buy more. Never true 10/04/19 23 Within the past 12 months, t he food you bought just didn't last and you didn't have money to get more. Never true 10/03/2022 Sex and Gender Information Value Date Recorded Sex Assigned at Female 09/13/2018 9:34 AM EDT Gender Identity Female 09/13/2018 9:34 AM EDT Sexual Orientation Straight 09/13/2018 9: 34 AM EDT Job Start Date Occupation Industry Not on file Not on file Not on file documented as of this encounter Functional Status Functional Status Response Date of Assess ment Are you deaf or do you have serious difficulty h earing? No 12/31/2022 Are you blind or do you have serious difficulty seeing, even when wearing glasses? No 12/31/2022 Do you have serious difficul ty walking or climbing stairs? (5 years old or older) No 01/02/2023 Do you have difficulty dress ing or bathing? (5 years old or older) No 12/31/2022 Because of a physical, menta l, or emotional condition, do you have difficulty doing errands alone such as visiting a doctor s office or shopping? (15 years old or older) No 01/01/20 Cognitive Status Response Date of Assessm ent Because of a physical, menta l, or emotional condition, do you have serious difficulty concentrating, remembering, or making decisions? (5 years old or older) No 12/31/2022 documented as of this encounter Miscellaneous Notes * Telephone Encounter - Twin Hayden MD - 03/16/2023 2:41 PM EST Attempted calling patient to discuss blood work. Will try again. documented in this encounter Plan of Treatment Upcoming Encounters Date Type Department Care Team ([facility] Contact Info) Description 05/24/2023 10:00 AM EST Laboratory Laboratory Patient Service Wiley Ford, [address] [phone] [address] 05/31/2023 10:40 AM EST Office Visit [address] [phone] Reggie Eddy, [address] [place] [address] 06/19/2023 1:00 PM EDT Appointment Cardiac Studies [facility] [address] [place] [address] 07/03/2023 8:15 AM EDT Telemedicine [facility], [address] [id number] Fran French DO [address] [place] [address] 07/07/2023 9:00 AM EDT PulmDiagnostic Pulmonary Function Lab, [place] [address] [place], [place] [id number] 3, Pft Room [address] [place] [address] 07/07/2023 10:30 AM EDT Office Visit Pulmonary Medicine, [address] [phone] Twin Hayden MD [address], [place] [phone] Scheduled Procedures Name Priority Associated Diagnoses Date/Ti me ESOPHAGOGASTRODUODENOSCOPY ( EGD), FLEXIBLE, TRANSORAL, DIAGNOSTIC Recall Gastrointestinal hemorrhage, unspecified gastrointestinal hemorrhage type ESOPHAGOGASTRODUODENOSCOPY ( EGD), FLEXIBLE, TRANSORAL, DIAGNOSTIC Recall Jones's esophagus Family history of colon cancer Rectal varices COLONOSCOPY FLEXIBLE PROXIMA L DIAGNOSTIC Recall Jones's esophagus Family history of colon cancer Rectal varices ESOPHAGOGASTRODUODENOSCOPY ( EGD), FLEXIBLE, TRANSORAL, DIAGNOSTIC Recall Gastroesophageal reflux disease without esophagitis Health Maintenance Due Date Last Done Comments COVID-19 Vaccine (#1) 1970 Alpha-1 Antitrypsin 1983 Zoster Vaccines (1 of 2) 1984 HPV/Co-Test 1995 Pneumococcal Vaccine: Pediatrics (0 to 5 Years) and At-Risk Patients (6 to 64 Years) (2 - PCV) 12/25/2013 12/25/2012 *ADVANCE DIRECTIVE NOT ON FILE 07/09/2020 Cervical Cancer Screening 01/01/2022 Pap Smear 01/01/2022 01/01/2019, 07/09, 05/06/2013, Additional history exists HbA1c 09/20/2022 09/20/2021, 11/09, 02/28/2019, Additional history exists Influenza Vaccine (FLU shot) (#1) 2022 Mammogram 06/21/2023 06/20/2022, 04/11, 04/30/2019, Additional history exists O2 ASSESSMENT COMPLETED IN PAST YEAR FOR COPD 01/03/2024 01/02/2023 TSH 01/11/2024 01/10/2023, /0 06/2022, 12/21/2022, Additional history exists Depression Screening 02/23/2024 02/22/2023 Lipid Panel 02/29/2024 02/28/2019, 11/08, 10/08/2012, Additional history exists COLONOSCOPY-EVERY 3 YRS AGES 18-100 01/02/2026 01/02/2023, 01/02/2023, 12/23/2022, Additional history exists DTaP,Tdap,and Td Vaccines (3 - Td or Tdap) 09/05/2032 09/05/2022, 08/18/2014 Hepatitis B Completed 09/15/2015, 12/09, 10/08/2012 COLONOSCOPY-EVERY 5 YRS AGES 18-100 Discontinued 01/02/2023, 01/02/2023, 12/23/2022, Additional history exists GARDASIL-HPV IMMUNIZATION SERIES Aged Out No longer eligible based on patient's age to complete this topic MENINGOCOCCAL (MENACTRA/MENVEO) Aged Out No longer eligible based on patient's age to complete this topic documented as of this encounter Medical Devices Implanted Type Area Payroll Coordinator Device Identifier Shelf Expiration Date Model / Serial / Lot Lens 22.0 Sa60at - [id number] Implanted:Qty: 1 on 10/15/2012 at [facility] Left: Eye [employer] 10/07/2016 SA60AT / [id number] / Lens 22.0 Sa60at - [id number] Implanted:Qty: 1 on 11/29/2012 [place] [facility] [place] Eye [employer] 03/31/2017 SA60AT / [id number] / Duraclip 11mm Repositionable - [id number] Implanted:Qty: 1 on 05/11/2022 by Jeffrey Weber MD [place] [facility] [place] [employer] [id number] 01/29/2024 [id number] / / [id number] documented as of this encounter Advance Directives Latest Code Status on File Code Status Date Activated Date Inactivated Comments Full Code 12/31/2022 8:37 PM 01/03/2023 8:37 PM This order reflects the patients wishes and were consensually agreed upon. Question Answer Comments Discussion of Advance Directives occurred with: Patient Code Status History Code Status Date Activated Date Inactivated Comments Full Code 12/21/2022 1:08 AM 12/30/2022 8:18 PM This order reflects the patients wishes and were consensually agreed upon. Question Answer Comments Discussion of Advance Directives occurred with: Patient Full Code 03/19/2021 8:43 AM 03/19/2021 3:52 PM Thi s order reflects the patients wishes and were consensually agreed upon. Question Answer Comments Discussion of Advance Directives occurred with: Not Discussed Full Code 06/08/2020 10:24 PM 06/14/2020 7:33 PM This o rder reflects the patients wishes and were consensually agreed upon. Question Answer Comments Discussion of Advance Directives occurred with: Patient Full Code 12/23/2019 9:07 PM 12/26/2019 6:40 PM This order reflects the patients wishes and were consensually agreed upon. Question Answer Comments Discussion of Advance Directives occurred with: Patient/Family Does the patient have a Living Will? No Does the patient have Health Care Power of Highway Construction Inspector? No Care Teams Restoration Technician Relationship Specialty Start Date End Date Reggie Eddy DO [address] [place] [id number] PCP - General Internal Medicine 03/08/22 documented as of this encounter
--- OUTSIDE RECORDS SUMMARY | 2023-03-19 22:26 | External Medical Summary ---
Author Name Unknown Address Unknown Organization [id number]:[facility] [facility] [place] [address] [facility] [address] Laboratory Report Ordering Provider Test Date Status CONOR MARY 03/16/2023 11:37:19 Final Observation Date Value Abnormality Reference (Units ) Status SYNC LEUKOCYTES IN BLOOD BY AUTOMATED COUNT 03/16/2023 11:37:19 5.40 4.00-10.80 (K/uL) Final Segs 03/16/2023 11:37:19 57.2 40.0-75.0 (%) Final Lymphs % 03/16/2023 11:37:19 23.9 18.0-42.0 (%) Final Monos 03/16/2023 11:37:19 13.7 Above high normal 1.0-11.0 (%) Final Eosinophils 03/16/2023 11:37:19 3.3 0.0-6.0 (%) Final Basos 03/16/2023 11:37:19 1.7 0.0-2.0 (%) Final Immature Granulocyte, Percent 03/16/2023 11:37:19 0.2 0.0-2.0 (%) Final Absolute Segs 03/16/2023 11:37:19 3.09 1.80-7.70 (K/uL) Final Lymphs, absolute 03/16/2023 11:37:19 1.29 1.00-4.80 (K/ul) Final Monos, Abs 03/16/2023 11:37:19 0.74 0.00-1.10 (K/uL) Final Eos, Abs 03/16/2023 11:37:19 0.18 0.00-0.70 (K/uL) Final Basos, Abs 03/16/2023 11:37:19 0.09 0.00-0.20 (K/uL) Final Immature Granulocytes, Number 03/16/2023 11:37:19 0.01 0.00-0.20 (K/uL) Final Performing Location [facility] [place] [facility] [address] [place] [address]
--- OUTSIDE RECORDS SUMMARY | 2023-03-19 22:26 | External Medical Summary | Summary of Care ---
Author Name Unknown Organization [facility] Address [address] [place] [address] Phone [phone] Care Team Providers Care Senior Maintenance Machinist Name Role Phone Reggie Eddy DO Primary Care Provid er Reason for Visit * Reason Comments Outpatient Testing Encounter Details Date Type Department Care Team (Late st Contact Info) Description 03/16/2023 12:20 PM EST Laboratory Outpatient Laboratory, [place] [address] [place] [address] [place], Lab B1a [address] [place] [address] Arrived Allergies Active Allergy Reactions Criticality Noted Date [...] Active Additional Information Patient taking differently:3 mL [id number] PRN, Dyspnea, Reported on 12/21/2022 Mycophenolate Mofetil [...] o Lost to follow up- moved to [place] o 2009: Dx with AIH: incomplete cirrhosis found incidentally at time of cholecystectomy when liver bx obtained; grade 1 varices; MARY , ASMA positive - Tx pred initially then Imuran 08/19 then MMF in 08/20 when she developed ascites o 2010: Rheum exam- not typical SLE sx- negative/normal C3/C4, SSA/SSB, centromere, DISTANCE EDUCATION FACULTY LIAISON/Sm, ESR,CRP. dsDNA borderline. [place] unlikely SLE. o 2012: Seen again by Rheum- Dr. Jung- photosensitive rash and raynauds. Borderline dsDNA. [place] likely SLE, though possible AIH could explain (+) MARY. HCQ discussed but wanted to avoid by GI. o [phone]: multiple hospitalizations for ascites; returned to Rheum [...] No 12/31/2022 documented as of this encounter Plan of Treatment Upcoming Encounters Date Type Department Care Team (Late st Contact Info) Description 05/24/2023 10:00 AM EST Laboratory Laboratory Patient Service [address] [phone] [address] 05/31/2023 10:40 AM EST Office Visit [address] [phone] Reggie Eddy, [address] [address] 06/19/2023 1:00 PM EDT Appointment Cardiac Studies [facility], [facility] [address] [place] [address] 07/03/2023 8:15 AM EDT Telemedicine [facility] [address] [place], [place] [phone] Fran French, DO [address] [place], [place] [phone] 07/07/2023 9:00 AM EDT PulmDiagnostic Pulmonary Function Lab, [place] [address] [place] [address] 3, Pft Room [address] [place] [address] 07/07/2023 10:30 AM EDT Office Visit Pulmonary Medicine, [place] [address] [place] [address] Twin Hayden MD [address] [place], [place] [phone] Scheduled Procedures Name Priority Associated Diagnoses Date/Ti [...] FOR COPD 01/03/2024 01/02/2023 TSH 01/11/2024 01/10/2023, 10/0 06/2022, 12/21/2022, Additional history exists Depression Screening [...] this encounter Medical Devices Implanted Type Area Aerial Photograph Interpreter Device Identifier Shelf Expiration Date Model / Serial / Lot Lens 22.0 Sa60at - [id number] Implanted:Qty: 1 on 10/15/2012 at [facility] Left: Eye [employer] 10/07/2016 SA60AT / [id number] / Lens 22.0 Sa60at - [id number] Implanted:Qty: 1 on 11/29/2012 at [place] [facility] [place] Right: Eye [employer] 03/31/2017 SA60AT / [id number] / Duraclip 11mm Repositionable - [id number] Implanted:Qty: 1 on 05/11/2022 by Jeffrey Weber MD at [place]OSCOPY [facility] [place] [employer] [id number] 01/29/2024 [id number] / / [id number] documented as of this encounter Advance [...] the patient have Health Care Power of Supervisor Channel Process? No Care Teams Senior Maintenance Machinist Relationship Specialty Start Date End Date Reggie Eddy DO [address] [place] [address] PCP - General Internal Medicine 03/08/22 documented as of this encounter
--- OUTSIDE RECORDS SUMMARY | 2023-03-19 22:26 | External Medical Summary ---
Author Name Unknown Address Unknown Organization [id number]:[place] [facility] [place] [address] [facility] [address] Laboratory Report Ordering Provider Test Date Status CONOR MARY 03/16/2023 11:37:19 Final Observation Date Value Abnormality Reference (Units ) Status BUN 03/16/2023 11:37:19 18 6-20 (mg/dL) Final Creatinine 03/16/2023 11:37:19 1.2 Above high normal 0.5-1.0 (mg/dL) Final Glomerular filtration rate/1.73 sq M.predicted [Volume Rate/Area] in Serum, Plasma or Blood by Creatinine-based formula (CKD-EPI) 03/16/2023 11:37:19 55 Below low normal >=60 (mL/min) Final eGFR is calculated based on the CKD-EPI 2020 equation SODIUM 03/16/2023 11:37:19 139 135-146 (m mol/L) Final Potassium 03/16/2023 11:37:19 3.3 Below low normal 3.5 -5.1 (mmol/L) Final Cl 03/16/2023 11:37:19 101 98-107 (mm ol/L) Final CO2 03/16/2023 11:37:19 29 22-32 (mmo l/L) Final Anion gap 03/16/2023 11:37:19 9 7-15 (mmol /L) Final Glucose 03/16/2023 11:37:19 100 70-120 (mg /dL) Final Calcium 03/16/2023 11:37:19 9.0 8.4-10.2 ( mg/dL) Final Performing Location [facility] [facility] [place] [address] [facility] [address]
--- OUTSIDE RECORDS SUMMARY | 2023-03-19 22:26 | External Medical Summary ---
Author Name Unknown Address Unknown Organization [id number]:[facility] [place] [facility] [place] [address] [facility] [address] [place] [address] Laboratory Report Ordering Provider Test Date Status CONOR MARY 03/16/2023 11:37:19 Final Observation Date Value Abnormality Reference (Units ) Status WBC, Total 03/16/2023 11:37:19 5.40 4.00-10.80 (K/uL) Final RBC 03/16/2023 11:37:19 4.44 3.85-5.15 (M/uL) Final Hemoglobin 03/16/2023 11:37:19 11.6 Below low normal 12.0-15.3 (g/dL) Final HCT 03/16/2023 11:37:19 39.0 36.0-45.2 (%) Final MCV 03/16/2023 11:37:19 87.8 81.5-97.5 (fL) Final MCH 03/16/2023 11:37:19 26.1 27.0-34.0 (pg) Final MCHC 03/16/2023 11:37:19 29.7 32.0-36.0 (g/dL) Final RDW 03/16/2023 11:37:19 15.9 11.5-15.5 (%) Final Platelets 03/16/2023 11:37:19 282 140-400 (K/uL) Final MPV 03/16/2023 11:37:19 10.6 6.6-11.1 (fL) Final Nucleated erythrocytes/100 leukocytes [Ratio] in Blood by Automated count 03/16/2023 11:37:19 0 <=0 (/100 WBCs) Final Performing Location [facility] [place] [address] [place] [address]
--- OUTSIDE RECORDS SUMMARY | 2023-03-19 22:26 | External Medical Summary ---
Author Name Unknown Address Unknown Organization [id number]:[facility] [place] - [address] [place] [address] Laboratory Report Ordering Provider Test Date Status USMANCONOR 03/16/2023 11:37:19 Final Exclude Heart Failure: <300 pg/mL
Diagnose Heart Failure:
Age <50 yr: >450 pg/mL
50-75 yr: >900 pg/mL
>75 yr: >1800 pg/mL
GFR is 30-59 mL/min: >1200 pg/mL or Age- adjusted values
GFR <30 mL/min: do not use, not reliable

Prognostic threshold: 1000 pg/mL Observation Date Value Abnormality Reference (Units ) Status BNP, Pro-hormone 03/16/2023 11:37:19 164 <30 0 (pg/mL) Final Performing Location [facility]ATORY [facility] [place] - [facility] [address] [place] [address]
--- OUTSIDE RECORDS SUMMARY | 2023-03-19 22:26 | External Medical Summary | Summary of Care ---
Author Name Unknown Organization [facility] Address [address] [place] [address] Phone [phone] Care Team Providers Care Driver Service Technician Name Role Phone Reggie Eddy DO Primary Care Provid er Reason for Referral * Precert (Within 10 days (routine)) - Pending Review Specialty Diagnoses / Procedures Referred By Contac t Referred To Contact Cardiac Studies Diagnoses PAH (pulmonary artery hypertension) (HCC) Cirrhosis of liver with ascites, unspecified hepatic cirrhosis type Procedures ECHO, COMPLETE (2D), TRANS-THORACIC Twin Hayden MD [address] [place] [address] Referral ID Status Reason Start Date Expiration Date Visits Requested Visits Authorized [id number] Pending Review Precert 06/15/2023 999 999 Reason for Visit * Reason Comments Follow Up Encounter Details Date Type Department Care Team (Late st Contact Info) Description 03/16/2023 10:40 AM EST Office Visit Pulmonary Medicine, [place] [address] [place] [address] Twin Hayden MD [address] [place] [address] PAH (pulmonary artery hypertension) (HCC)*; Cirrhosis of liver with ascites, unspecified hepatic cirrhosis type Allergies Active Allergy Reactions Criticality Noted Date [...] Active Additional Information Patient taking differently:3 mL [id number] PRN, Dyspnea, Reported on 12/21/2022 Mycophenolate Mofetil [...] o Lost to follow up- moved to [place] o 2009: Dx with AIH: incomplete cirrhosis found incidentally at time of cholecystectomy when liver bx obtained; grade 1 varices; MARY , ASMA positive - Tx pred initially then Imuran 08/19 then MMF in 08/20 when she developed ascites o 2010: Rheum exam- not typical SLE sx- negative/normal C3/C4, SSA/SSB, centromere, BOOTMAKER/Sm, ESR,CRP. dsDNA borderline. Oxly unlikely SLE. o 2012: Seen again by Rheum- Dr. Jung- photosensitive rash and raynauds. Borderline dsDNA. Oxly likely SLE, though possible AIH could explain (+) MARY. HCQ discussed but wanted to avoid by GI. o 2022-7263: multiple hospitalizations for ascites; returned to Rheum [...] Former Cigarettes 0.3 25 Smokeless Tobacco: Never Tobacco Cessation:Counseling Given: Not Answered Comments:5-6 a day Alcohol Use Standard Drinks/Week Comments No 0 (1 standard drink = 0.6 oz pur e alcohol) PHQ-2 Answer Date Recorded PHQ Adult Total Score 0 02/22/2023 Hunger Vital Sign Answer Date Recorded Within the past 12 months, y ou worried that your food would run out before you got the money to buy more. Never true 10/04/19 Within the past 12 months, t he [...] on file documented as of this encounter Last Filed Vital Signs Vital Sign Reading Time Taken Comments Blood Pressure 107/57 03/16/2023 10:51 AM EST Pulse 63 03/16/2023 10:51 AM EST Temperature 36.1 C (97 F) 03/16/2023 10:51 AM EST Respiratory Rate - - Oxygen Saturation 89% 03/16/2023 10:51 AM EST RA Inhaled Oxygen Concentration - - Weight 50.8 kg (112 lb) 03/16/2023 10:51 AM EST Height - - Body Mass Index 18.08 12/31/2022 8:08 PM EDT documented in this encounter Functional Status Functional Status Response [...] No 12/31/2022 documented as of this encounter Progress Notes * Twin Hayden MD - 03/16/2023 10:40 AM EST Subjective Jazmín Blevins is a 58 year old female last seen in PH clinic in May 2022. HPI: Patient presents to Pulmonary Clinic by herself today. In good spirits, no change in her baseline exercise capacity. Patient was admitted in December twice for GI bleed. Colonoscopy showed angiodysplasia use which were cauterized. Patient's last hemoglobin was checked in January. At baseline exercise capacity. No dizziness, syncope with exertion Questionable compliance to oxygen with exertion however uses 3 L with sleep Currently on tadalafil and ambrisentan as per prior dosages. Initially not on any diuretics, currently on torsemide WHO functional class Vasodilators Tadalafil 40 mg daily 06/28 Ambrisentan 10 mg daiy 08/28 Diuretics Torsemide 20 mg 2 tablets once daily Spironolactone 100 mgonce daily Kcl Oxygen 3lpm with sleep, 2lpm with walk. PAP therapy none Exercise none PMH: Patient Active Problem List Diagnosis Code Postoperative hypothyroidism E89.0 HISTORY OF TOBACCO USE Z87.891 Esophageal reflux K21.9 Serologic abnormality R89.4 Autoimmune hepatitis (HCC) K75.4 PPD positive, treated R76.11 Normocytic anemia D64.9 Bright red blood per rectum K62.5 Acute on chronic respiratory failure with hypoxia (HCC) J96.21 Controlled substance agreement signed Z79.899 Disordered sleep G47.9 MEDICATION USE AGREEMENT [id number] Systemic lupus erythematosus (HCC) M32.9 Esophageal varices in cirrhosis (HCC) K74.60, I85.10 Influenza vaccination declined Z28.21 Prediabetes R73.03 Spinal stenosis of lumbar region without neurogenic claudication M48.061 Pain aggravated by changing postions R52 Other ascites R18.8 Portal hypertension (HCC) K76.6 Other emphysema (HCC) J43.8 COPD, group C, by GOLD 2017 classification (HCC) J44.9 Pulmonary hypertension (HCC) I27.20 Other specified disorders of adrenal gland (HCC) E27.8 Ovarian cyst, left N83.202 Ovarian cyst, right N83.201 Raynaud's disease without gangrene I73.00 Other cirrhosis of liver (HCC) K74.69 Immunodeficiency (HCC) D84.9 Shock (HCC) R57.9 Pleural effusion J90 Acute pulmonary edema (HCC) J81.0 Anemia D64.9 Pain of upper abdomen R10.10 Iron deficiency anemia due to chronic blood loss D50.0 Lactic acidosis E87.20 Hematochezia K92.1 Arteriovenous malformation (AVM) Q27.30 Current Outpatient Medications Medication Sig Dispense Refill Ascorbic Acid (VITAMIN C-CORWIN HIPS) 1000 MG TABS Take 1 Tablet by mouth in the morning. Ferrous Sulfate 325 (65 Fe) MG Oral Tablet (Feosol) Take 1 Tab by mouth 2 times a day. 60 Tab 11 Calcium Citrate 200 MG Oral Tablet Take 400 mg by mouth 2 times a day. 120 Tab 0 Lactulose 10 GM/15ML Oral Solution (Constulose) TAKE 30 ML BY MOUTH 3 TIMES A DAY (Patient taking differently: Take 30 mL by mouth as needed for Constipation.) 2838 mL 5 Magnesium Chloride 64 MG Oral Tablet Delayed Release (Mag-64) Take by mouth 4 Tablets in the morning. 360 Tablet 3 Klor-Con M20 20 MEQ Oral Tablet Extended Release (Potassium Chloride Gianna ER) TAKE 2 TABLETS BY MOUTH IN THE MORNING. 180 Tablet 1 Spiriva HandiHaler 18 MCG Inhalation Capsule (tiotropium bromide) Inhale 1 Capsule by mouth in the morning. . Do not swallow capsule.. 30 Capsule 5 Gabapentin 300 MG Oral Capsule (Neurontin) Take 2 Capsules by mouth at bedtime. Take one cap by mouth at bedtime for two weeks, then may increase to 2 caps at bedtimes 180 Capsule 1 Fluticasone Furoate-Vilanterol 200-25 MCG/ACT Inhalation Aerosol Powder Breath Activated (BREO ellipta) Inhale 1 Puff by mouth in the morning. 60 Each 11 Mycophenolate Mofetil 500 MG Oral Tablet (Cellcept) Take 1 Tablet by mouth in the morning and 1 Tablet before bedtime. 180 Tablet 1 Fluticasone Propionate 50 MCG/ACT Nasal Suspension (Flonase) Administer 2 Sprays into nostril in the morning. 48 mL 3 Spironolactone 100 MG Oral Tablet (Aldactone) TAKE 1 AND 1/2 TABLETS BY MOUTH EVERY DAY (Patient taking differently: Take 1.5 Tablets by mouth in the morning. TAKE 1 AND 1/2 TABLETS BY MOUTH EVERY DAY.) 135 Tablet 1 Levothyroxine Sodium 150 MCG Oral Tablet (Levoxyl) TAKE 1 TABLET BY MOUTH DAILY IN THE MORNING. (ATLEAST 30 MIN PRIOR TO BREAKFAST OR OTHER MEDS) 90 Tablet 1 Nadolol 40 MG Oral Tablet (Corgard) TAKE 1 TABLET BY MOUTH EVERY DAY IN THE MORNING 90 Tablet 1 Tadalafil (PAH) 20 MG Oral Tablet Take 2 Tablets by mouth in the morning. 30 Tablet 11 oxygen IN GAS 2 liters at night, at rest, and with ambulation (Patient taking differently: Use 3 L/min(Oxygen) as directed at bedtime. 2 liters with ambulation) 1 Each 0 Omeprazole 20 MG Oral Capsule Delayed Release (PriLOSEC) Take 1 Capsule by mouth in the morning and1 Capsule before bedtime. 60 Capsule 0 traMADol HCl 50 MG Oral Tablet (Ultram) Take 2 Tablets by mouth every 6 hours as needed for Pain, Moderate. 240 Tablet 0 traZODone HCl 50 MG Oral Tablet (Desyrel) Take 1 Tablet by mouth at bedtime. 90 Tablet 1 Ambrisentan 10 MG Oral Tablet (Letairis) TAKE 1 TABLET BY MOUTH 1 TIME A DAY. DO NOT HANDLE IF . DO NOT SPLIT, CRUSH, OR CHEW. AVOID INHALATION AND CONTACT WITH SKIN OR EYES. 30 Tablet 5 Torsemide 20 MG Oral Tablet (Demadex) TAKE 2 TABLETS BY MOUTH EVERY MORNING 180 Tablet 1 Nebulizer Device For use with duoneb treatment 1 Each 0 Albuterol Sulfate HFA 108 (90 Base) MCG/ACT Inhalation Aerosol Solution Inhale 2 Puffs by mouth every 4 hours as needed for Shortness of Breath or Wheezing. 18 g 5 Ipratropium-Albuterol 0.5-2.5 (3) MG/3ML Inhalation Solution (Duoneb) Inhale 3 mL via nebulizer in the morning and 3 mL at noon and 3 mL in the evening and 3 mL before bedtime. (Patient taking differently: Inhale 3 mL via nebulizer every 4 hours as needed for Dyspnea.) 3600 mL 11 No current facility-administered medications for this visit. Review of patient's allergies indicates: Allergen Reactions Dilaudid [Hydromorphone Hcl] Itching Environmental Pollen -asthmatic attacks Review of Systems Constitutional ROS: No change in weight, No weakness, No fatigue and No fevers, sweats, or chills Pulmonary ROS: As per HPI Cardiovascular ROS: No chest pain, no dyspnea on exertion, No orthopnea, No paroxysmal nocturnal dyspnea, no edema Gastrointestinal ROS: No abdominal pain,No significant heartburn, Musculoskeletal/Extremities ROS: No pain, redness or swelling on the joints Neurologic ROS: Normal balance, No headaches, No seizures and No weakness Endocrine ROS: No heat intolerance, No cold intolerance Psychiatric ROS: No depression, No anxiety Allergy/Immunologic ROS: As per HPI Sleep: no sleep disorders All other systems negative BP 107/57 | Pulse 63 | Temp 36.1 C (97 F) (Tympanic) | Wt 50.8 kg (112 lb) | LMP 07/09/2012 | SpO2 89% Comment: RA | BMI 18.08 kg/m | BSA 1.54 m Exam General: alert, healthy, no distress, well nourished, well developed Eyes: PERRLA, EOMI, Conjunctiva are pink and non-injected, sclera clear Oropharynx: no exudate, no erythema, lips, buccal mucosa, and tongue normal Heart: regular rate & rhythm, no murmurs, no gallops Lungs: chest symmetric with normal AP diameter, no chest deformities noted, no chest wall tenderness, lungs clear to auscultation, no wheeze, no crackles Abdomen: abdomen soft, non-tender, non-distended Neurologic: alert & oriented x 3 with fluent speech, Skin: skin color, texture, turgor are normal, no rashes or significant lesions on visualized areas Diagnostics Latest Reference Range & Units 12/21/22 01:25 12/28/22 08:46 01/10/23 10:58 BNP, NT-Pro <300 pg/mL 2,671 (H) 336 (H) 81 (H): Data is abnormally high Latest Reference Range & Units 08/28/20 13:25 03/14/22 14:16 FEV1/FVC Actual Pre % 64 55 FVC Actual Pre L 2.58 2.78 FVC Actual Pre %Predict % 74 80 FEV1 Actual Pre L 1.65 1.54 FEV1 Actual Pre %Predict % 59 56 TLC(Pleth) Actual Pre L 4.53 TLC (Pleth) Actual Pre %Predict % 86 DLCO Uncorrect Actual Pre ml/min/mmHg 14.90 8.32 DLCO Uncorrect Actual Pre %Predict % 70 39 6 Minute walk test Date Oxygen SpO2 Pre SpO2 post Carla Pre Carla Post Total distance 11/13/20 RA 97% 94% 2 4 410 meters 07/03/20 3 LPM 100% 89% 0.5 4 318 meters 05/21/21 RA 91 87 3 3.5 438 m 12/10/21 RA 91 86 0 1 396 m Echo 06/09/2020 There is severe pulmonary hypertension, severe tricuspid regurgitation. If clinically appropriate The right ventricular cavity is larger than the left ventricular cavity (4 chamber) indicating significant RV enlargement.The rightventricular systolic function is moderately reduced . Severe tricuspid regurgitation is present. Dilated IVC with reduced collapsability with sniff indicates an elevated right atrial pressure of 15mmHg. Severe pulmonary hypertension is present. The pulmonary artery systolic pressure is > 2/3 systemic systolic pressure. The qualitative LV ejection fraction is 55-59% (normal). ECHO 01/27/21 Normal LVEF, PASP of 55. RV size and function appear normal, TR max velocity of 3.5 m/s ECHO 08/18/21 Normal LVEF. RV cavity size is normal. RV function is normal. Severe TR, PASP of 50. TR max velocity of 3.2 m/s Echocardiogram, 05/09/2022 Normal left ventricular ejection fraction. Right ventricular size and function appear mild pulmonary hypertension, PASP of 47. Left atrium is moderately enlarged. Right atrium is normal. TR max velocity of 3.1 m/sec Echo from January 07, 2023. Normal left ventricular ejection fraction. Mildly reduced right ventricular systolic function. Severe tricuspid regurgitation. Left atrium is mildly enlarged. Right atrium is normal. Diastolic dysfunction of the left ventricle. Right ventricular cavity is mildly dilated. TR max velocity of 3.4 m/sec. RHC 06/30/20 PA 74/25 mPAP 41 Wedge 6 TPG 35 mm Hg CO - TD 4.21 Aakash's 2.97 PVR 11 Miller units Assessment: 1. Pulmonary arterial hypertension, WHO group I, on dual vasodilators therapy 2. Recent admission for lower GI bleed secondary to angiodysplasia in colon 3. Chronic hypoxic respiratory failure, 2 L with exercise and 3 L with sleep 4. SLE and autoimmune hepatitis currently on CellCept, 5. History of tobacco use, asthma, COPD, emphysematous phenotype Plan 1. Patient seems to be back to her baseline exercise capacity. Her echocardiogram was done in during her hospitalization where she was dealing with GI bleed. I would consider repeating echocardiogramin 3 months from now. Continue with current doses of tadalafil and ambrisentan. 2. We had a lengthy discussion regarding importance of compliance to oxygen. We will obtain 6 minute walk test on room air at next visit. In the interim patient encouraged to continue 2 L with exercise and 3 L with sleep 3. Patient will set up an appointment with Rheumatology. Continue with current dose of CellCept in the interim 4. Optimization of fluid overload status as per primary care . I would obtain blood work including proBNP and chemistry and hemoglobin today Patient will be seen back in Pulmonary clinic in 2 months in PH clinic, and was advised to contact me sooner with any questions, concerns or deteriorating symptoms. I spent a total of 45 minutes on the date of service in preparation, delivery, and documentation ofthe care provided to the patient, excluding any time spent on the performance of any procedure or separately billable services. Twin Hayden MD This chart was completed in part utilizing [employer] Speech Voice Recognition Software. Randomword insertions, pronoun errors, and incomplete sentences are an occasional consequence of this system due to software limitations, and ambient noise. Any questions or concerns about the content, text, or information contained within the body of this dictation should be directly addressed to the provider for clarification. documented in this encounter Plan of Treatment Upcoming Encounters Date Type Department Care Team (Late st Contact Info) Description 03/16/2023 12:20 PM EST Laboratory Outpatient Laboratory, [place] [address] [place] [address] [place], [address] [place] [address] Arrived 05/24/2023 10:00 AM EST Laboratory [facility], [address] [id number] [place], Lab [address] [address] 05/31/2023 10:40 AM EST Office Visit [facility] [address] [place] [address] Reggie Eddy, [address] [address] 06/19/2023 1:00 PM EDT Appointment Cardiac Studies [facility], [facility] [address] [place] [address] 07/03/2023 8:15 AM EDT Telemedicine [facility], [address] [address] Fran French, [address], [place] [id number] 07/07/2023 9:00 AM EDT PulmDiagnostic Pulmonary Function Lab, [address] [address] 3, Pft Room [address] [place] [address] 07/07/2023 10:30 AM EDT Office Visit Pulmonary Medicine, [place] [address] [place] [address] Twin Hayden MD [address], [place] [id number] Scheduled Orders Name Type Priority Associated Diagnoses Orde r Schedule CBC WITH WBC DIFFERENTIAL Lab Routine PAH (pulmonary artery hypertension) (HCC) Cirrhosis of liver with ascites, unspecified hepatic cirrhosis type Ordered: 03/16/2023 BASIC METABOLIC PANEL Lab Routine PAH (pulmonary artery hypertension) (HCC) Cirrhosis of liver with ascites, unspecified hepatic cirrhosis type Ordered: 03/16/2023 BNP, NT-PRO Lab Routine PAH (pulmonary artery hypertension) (HCC) Cirrhosis of liver with ascites, unspecified hepatic cirrhosis type Ordered: 03/16/2023 ECHO, COMPLETE (2D), TRANS-THORACIC Echocardiology Routine PAH (pulmonary artery hypertension) (HCC) Cirrhosis of liver with ascites, unspecified hepatic cirrhosis type Expected: 06/15/2023, Expires: 04/16/2025 PULMONARY STRESS TESTING Procedures Routine PAH (pulmonary artery hypertension) (HCC) Cirrhosis of liver with ascites, unspecified hepatic cirrhosis type Ordered: 03/16/2023 CBC Lab Routine PAH (pulmonary artery hypertension) (HCC) Cirrhosis of liver with ascites, unspecified hepatic cirrhosis type Ordered: 03/16/2023 DIFFERENTIAL, AUTOMATED Lab Routine PAH (pulmonary artery hypertension) (HCC) Cirrhosis of liver with ascites, unspecified hepatic cirrhosis type Ordered: 03/16/2023 Scheduled Procedures Name Priority Associated Diagnoses Date/Ti [...] this encounter Medical Devices Implanted Type Area Freezer Person Device Identifier Shelf Expiration Date Model / Serial / Lot Lens 22.0 Sa60at - [id number] Implanted:Qty: 1 on 10/15/2012 at OR [facility] Left: Eye [employer] 10/07/2016 SA60AT / [id number] / Lens 22.0 Sa60at - [id number] Implanted:Qty: 1 on 11/29/2012 [place] [facility] [place] [employer] 03/31/2017 SA60AT / [id number] / Duraclip 11mm Repositionable - [id number] Implanted:Qty: 1 on 05/11/2022 by Jeffrey Weber MD [place] [facility] [place] [id number] 01/29/2024 [id number] / / [id number] documented as of this encounter Visit Diagnoses Diagnosis PAH (pulmonary artery hypertension) (HCC)- Primary Other chronic pulmonary heart diseases Cirrhosis of liver with ascites, unspecified hepatic cirrhosis type documented in this encounter Advance Directives Latest Code Status [...] the patient have Health Care Power of Tax Lawyer? No Care Teams Driver Service Technician Relationship Specialty Start Date End Date Reggie Eddy DO [address] [place] [id number] PCP - General Internal Medicine 03/08/22 documented as of this encounter"
--- OUTSIDE RECORDS SUMMARY | 2023-03-19 22:27 | External Medical Summary | Summary of Care ---
Author Name Unknown Organization [facility] Address [address] [place] [address] Phone [phone] Care Team Providers Care Associate Dean Of Students Name Role Phone Reggie Wei DO Primary Care Provid er Reason for Visit * Reason Onset Date Comments Medication Refill 02/09/2023 Encounter Details Date Type Department Care Team ([facility] st Contact Info) Description 02/09/2023 Refill [facility] [address] [place] [address] Reggie Wei DO [address] [place] [id number] Primary insomnia Allergies Active Allergy Reactions Criticality Noted Date Comments Hydromorphone Hcl Itching Medium 11/09/2015 Environmental Low 05/04/2010 Pollen -asthmatic attacks documented as of this encounter (statuses as of 02/10/2023) Medications Medication Sig Dispensed Refills Start Date [...] 06/13/2020 Active Calcium Citrate 200 MG Oral TabletIndications:H ypocalcemia Take 400 mg by mouth 2 times a day. 120 Tab 0 10/09/2020 Active Lactulose 10 GM/15ML Oral Solution (Constulose)Indicat ions:Cirrhosis of liver with ascites, unspecified hepatic cirrhosis type TAKE 30 ML BY MOUTH 3 TIMES A DAY 2838 mL 5 05/10/2021 Active Additional Information Patient taking differently: 20 g Oral PRN, Constipation, Reported on 12/21/2022 Magnesium Chloride 64 MG Oral Tablet Delayed Release (Mag-64)Indications :Hypomagnesemia Take by mouth 4 Tablets in the morning. 360 Tablet 3 10/25/2021 Active Klor-Con M20 20 MEQ Oral Tablet Extended Release (Potassium Chloride Gianna ER) TAKE 2 TABLETS BY MOUTH IN THE MORNING. 180 Tablet 1 11/19/2021 Active Albuterol Sulfate HFA 108 (90 Base) MCG/ACT Inhalation Aerosol SolutionIndications :Sinobronchitis Inhale 2 Puffs by mouth every 4 hours as needed for Shortness of Breath or Wheezing. 18 g 5 03/11/2022 Active Spiriva HandiHaler 18 MCG Inhalation Capsule (tiotropium bromide) Inhale 1 Capsule by mouth in the morning. . Do not swallow capsule.. 30 Capsule 5 05/20/2022 Active Gabapentin 300 MG Oral Capsule (Neurontin)Indicati ons:DDD (degenerative disc disease), cervical,DDD (degenerative disc disease), [...] the morning. 60 Each 11 09/08/2022 Active Torsemide 20 MG Oral Tablet (Demadex)Indication s:Cirrhosis of liver with ascites, unspecified hepatic cirrhosis type Take 2 Tablets by mouth in the morning. TAKE 2 TABLETS BY MOUTH EVERY DAY IN THE MORNING Strength: 20 mg. 180 Tablet 3 09/08/2022 Active Ipratropium-Albuter ol 0.5-2.5 (3) MG/3ML Inhalation Solution (Duoneb) Inhale 3 mL via nebulizer in the morning and 3 mL at noon and 3 mL in the evening and 3 mL before bedtime. 3600 mL 11 09/09/2022 Active Additional Information Patient taking differently:3 mL [id number] PRN, Dyspnea, Reported on 12/21/2022 Mycophenolate Mofetil 500 MG Oral Tablet (Cellcept)Indicatio ns:Autoimmune hepatitis (HCC) Take 1 Tablet by mouth in the morning and 1 Tablet before bedtime. 180 Tablet 1 09/09/2022 Active Fluticasone Propionate 50 MCG/ACT Nasal Suspension (Flonase)Indication s:Nasal congestion Administer 2 Sprays into nostril in the morning. 48 mL 3 09/09/2022 Active Spironolactone 100 MG Oral Tablet (Aldactone)Indicati ons:Esophageal varices in cirrhosis (HCC) TAKE 1 AND 1/2 TABLETS BY MOUTH EVERY DAY 135 Tablet 1 09/25/2022 Active Additional Information Patient taking differently: 150 mg Oral Daily(AM), TAKE 1 AND 1/2 TABLETS BY MOUTH EVERY DAY, Reported on 12/21/2022 Levothyroxine Sodium 150 MCG Oral Tablet (Levoxyl)Indication s:Postoperative hypothyroidism TAKE 1 TABLET BY MOUTH DAILY IN THE MORNING. (AT LEAST 30 MIN PRIOR TO BREAKFAST OR OTHER MEDS) 90 Tablet 1 11/23/2022 Active Nadolol 40 MG Oral Tablet (Corgard)Indication s:Rectal varices,Esophageal varices in cirrhosis (HCC) TAKE 1 TABLET BY MOUTH EVERY DAY IN THE MORNING 90 Tablet 1 11/23/2022 Active traMADol HCl 50 MG Oral Tablet (Ultram)Indications :MEDICATION USE AGREEMENT,DDD (degenerative disc disease), cervical,DDD (degenerative disc disease), thoracic,DDD (degenerative disc disease), lumbar Take 2 Tablets by mouth every 6 hours as needed for Pain, Moderate. 240 Tablet 0 12/20/2022 Active Tadalafil (PAH) 20 MG Oral Tablet Take 2 Tablets by mouth in the morning. 30 Tablet 11 12/30/2022 Active oxygen IN GAS 2 liters at night, at rest, and with ambulation 1 Each 0 12/30/2022 Active Omeprazole 20 MG Oral Capsule Delayed Release (PriLOSEC)Indicatio ns: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 Take 1 Capsule by mouth in the morning and 1 Capsule before bedtime. 60 Capsule 0 01/03/2023 Active traZODone HCl 50 MG Oral Tablet (Desyrel)Indication s:Primary insomnia Take 1 Tablet by mouth at bedtime. 90 Tablet 1 02/10/2023 Active Ambrisentan 10 MG Oral Tablet (Letairis)Indicatio ns:PAH (pulmonary artery hypertension) (HCC) TAKE 1 TABLET BY MOUTH 1 TIME A DAY. DO NOT HANDLE IF . DO NOT SPLIT, CRUSH, OR CHEW. AVOID INHALATION AND CONTACT WITH SKIN OR EYES. 30 Tablet 5 02/10/2023 Active traZODone HCl 50 MG Oral Tablet (Desyrel)Indication s:Primary insomnia Take 1 Tablet by mouth at bedtime. 90 Tablet 1 09/30/2022 02/10/20 Discontinu ed(Refill) documented as of this encounter (statuses as of 02/10/2023) Active Problems Problem Noted Date Diagnosed Date [...] sx & Dx: sicca, Raynauds, rash o 1996: joint pain, weight loss, arm paresthesias, racing heart, (+) MARY and thyroid abn - saw Dr. 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 dsDNA borderline. [place] unlikely SLE. o 2012: Seen again by Rheum- Dr. Jung- photosensitive rash and raynauds. Borderline dsDNA. [place] likely SLE, though possible AIH could explain (+) MARY. HCQ discussed but wanted to avoid by GI. o [id number]: multiple hospitalizations for ascites; returned to Rheum [...] as of this encounter (statuses as of 02/10/2023) Resolved Problems Problem Noted Date Diagnosed Date [...] as of this encounter (statuses as of 02/10/2023) Immunizations Name Administration Dates Next Due HEP A - Hepatitis A (Adult > 18 yrs) 09/15/2015 HEP B - Hepatitis B (Dialysis/Immumocomp Pt) HepA Inact/HepB Recomb>=18yrs old 10/08/2012 Hepatitis B, 20+ yrs 09/15/2015 PPD 09/28/2010,09/07/2010 Pneumococcal Polysaccharide PPV23 (Pneumovax) TDAP (age 10 and older)(Boostrix) 08/18/2014 documented as of this encounter Social History Tobacco Use Types Packs/Day Years Used Date Smoking Tobacco: Former Cigarettes 0.3 25 Smokeless Tobacco: Never Comments:5-6 a day Alcohol Use Standard Drinks/Week Comments No 0 (1 standard drink = 0.6 oz pur e alcohol) PHQ-2 Answer Date Recorded PHQ Adult Total Score 0 09/07/2021 Hunger Vital Sign Answer Date Recorded Within [...] or making decisions? (5 years old or older No 12/31/2022 documented as of this encounter Miscellaneous Notes * Telephone Encounter - Mary Topete RPh - 02/10/2023 2:10 PM EDTSigned Prescriptions: Disp Refills traZODone HCl 50 MG Oral Tablet (Desyrel) 90 Tab*1 Sig: Take 1 Tablet by mouth at bedtime.Authorizing Provider: REGGIE WEI User: MARY TOPETE documented in this encounter Plan of Treatment Upcoming Encounters Date Type Department Care Team ([facility] Contact Info) Description 02/22/2023 4:00 PM EST Office Visit [address] [phone] Reggie Wei, DO [address] [place] [address] 03/16/2023 10:40 AM EST Office Visit Pulmonary Medicine, [place] [address] [place] [address] Twin Hayden MD [address], [place] [id number] 07/03/2023 8:15 AM EDT Telemedicine [facility], [address] [id number] Fran French, DO [address] [place] [address] Scheduled Procedures Name Priority Associated Diagnoses Date/Ti [...] 01/01/2022 01/01/2019, 07/09, 05/06/2013, Additional history exists Depression Screening 09/07/2022 09/07/2021 HbA1c 09/20/2022 09/20/2021, 11/09, 02/28/2019, Additional history exists Influenza Vaccine (FLU shot) (#1) 2022 Mammogram 06/21/2023 06/20/2022, 04/11, 04/30/2019, Additional history exists O2 ASSESSMENT COMPLETED IN PAST YEAR FOR COPD 01/03/2024 01/02/2023 TSH 01/11/2024 01/10/2023, 10/0 06/2022, 12/21/2022, Additional history exists Lipid Panel 02/29/2024 02/28/2019, 11/08, 10/08/2012, Additional history exists DTaP,Tdap,and Td Vaccines (2 - Td or Tdap) 08/18/2024 08/18/2014 COLONOSCOPY-EVERY 3 YRS AGES 18-100 01/02/2026 01/02/2023, 01/02/2023, 12/23/2022, Additional history exists Hepatitis B Completed 09/15/2015, 12/09, 10/08/2012 COLONOSCOPY-EVERY 5 YRS AGES 18-100 Discontinued 01/02/2023, 01/02/2023, 12/23/2022, Additional history exists GARDASIL-HPV IMMUNIZATION SERIES Aged Out No longer eligible based on patient's age to complete this topic MENINGOCOCCAL (MENACTRA/MENVEO) Aged Out No longer eligible based on patient's age to complete this topic documented as of this encounter Medical Devices Implanted Type Area Advanced Practice Registered Nurse Device Identifier Shelf Expiration Date Model / Serial / Lot Lens 22.0 Sa60at - [id number] Implanted:Qty: 1 on 10/15/2012 at OR [facility] Left: Eye [employer] 10/07/2016 SA60AT / [id number] / Lens 22.0 Sa60at - [id number] Implanted:Qty: 1 on 11/29/2012 at [place] [facility] Right: Eye [employer] 03/31/2017 SA60AT / [id number] / Duraclip 11mm Repositionable - [id number] Implanted:Qty: 1 on 05/11/2022 by Jeffrey Weber MD at [facility]OSCOPY [facility] [employer] [id number] 01/29/2024 [id number] / [id number] documented as of this encounter Visit Diagnoses Diagnosis Primary insomnia Persistent disorder of initiating or maintaining sleep documented in this encounter Advance Directives Latest [...] the patient have Health Care Power of Community Health Advisor? No Care Teams Associate Dean Of Students Relationship Specialty Start Date End Date Reggie Wei DO [address] [place] [phone] PCP - General Internal Medicine 03/08/22 documented as of this encounter
--- OUTSIDE RECORDS SUMMARY | 2023-03-19 22:27 | External Medical Summary | Summary of Care ---
Author Name Unknown Organization [facility] Address [address] [place] [address] Phone [phone] Care Team Providers Care Utility Assembler Name Role Phone Reggie Eddy DO Primary Care Provid er Reason for Referral * Social Care (Within 10 days (routine)) - Pending Review Specialty Diagnoses / Procedures Referred By Jordyn cano Referred To Contact Regulatory Compliance Engineer Diagnoses HTN, goal below 130/80 Reggie Eddy DO [address] [place] [address] Referral ID Status Reason Start Date Expiration Date Visits Requested Visits Authorized [id number] Pending Review Specialty Services Required [phone] Question Answer Referral Priority Within 10 days (routine) Where should this appointment be scheduled? [facility] Role Health Operations Manager Assistant Health Operations Manager Assistant Referral Reason Hypertension Program Comments Is patient being transitioned from [facility] to Complex Case Management? No Reason for Visit * Reason Comments Follow Up Bilateral lower leg edema and hands. Encounter Details Date Type Department Care Team (Latest Contact Info) Description 02/22/2023 4:00 PM EST Office Visit Family [facility] [address] [place] [id number] Reggie Eddy DO [address] [place] [address] AVM (arteriovenous malformation) of colon*; Anemia associated with acute blood loss; Other emphysema (HCC); Prediabetes; Postoperative hypothyroidism; Other specified disorders of adrenal gland (HCC); COPD, group C, by GOLD 2017 classification (HCC); Pulmonary hypertension (HCC); Portal hypertension (HCC); Systemic lupus erythematosus, unspecified SLE type, unspecified organ involvement status (HCC); Autoimmune hepatitis (HCC); Other cirrhosis of liver (HCC); HTN, goal below 130/80 Allergies Active Allergy Reactions Criticality Noted Date Comments Hydromorphone Hcl Itching Medium 11/09/2015 Environmental Low 05/04/2010 Pollen -asthmatic attacks documented as of this encounter (statuses as of 02/22/2023) Medications Medication Sig Dispensed Refills Start Date [...] Active Additional Information Patient taking differently:3 mL [id number] PRN, Dyspnea, Reported on 12/21/2022 Mycophenolate Mofetil [...] as of this encounter (statuses as of 02/22/2023) Active Problems Problem Noted Date Diagnosed Date [...] o Lost to follow up- moved to [place] o 2009: Dx with AIH: incomplete cirrhosis found incidentally at time of cholecystectomy when liver bx obtained; grade 1 varices; MARY , ASMA positive - Tx pred initially then Imuran 08/19 then MMF in 08/20 when she developed ascites o 2010: Rheum exam- not typical SLE sx- negative/normal C3/C4, SSA/SSB, centromere, DIRECTOR OF BANDS/Sm, ESR,CRP. dsDNA borderline. [place] unlikely SLE. o 2012: Seen again by Rheum- Dr. Jung- photosensitive rash and raynauds. Borderline dsDNA. [place] likely SLE, though possible AIH could explain (+) MARY. HCQ discussed but wanted to avoid by GI. o [id number]: multiple hospitalizations for ascites; returned to Rheum [...] as of this encounter (statuses as of 02/22/2023) Resolved Problems Problem Noted Date Diagnosed Date [...] as of this encounter (statuses as of 02/22/2023) Immunizations Name Administration Dates Next Due HEP [...] Sign Reading Time Taken Comments Blood Pressure 108/66 02/22/2023 4:10 PM EST Pulse 64 02/22/2023 4:10 PM EST Temperature 36.9 C (98.5 F) 02/22/2023 4:10 PM ES T Respiratory Rate 16 02/22/2023 4:10 PM EST Oxygen Saturation 90% 02/22/2023 4:10 PM EST Inhaled Oxygen Concentration - - Weight 52.7 kg (116 lb 3.2 oz) 02/22/2023 4:10 P M EST Height - - Body Mass Index 18.76 12/31/2022 8:08 PM EDT documented in this [...] as of this encounter Progress Notes * Reggie Eddy, DO - 02/22/2023 4:11 PM EST Subjective Jazmín Blevins is a 57 year old female. Chief Complaint Patient presents with Follow Up Bilateral lower leg edema and hands. HPI: Patient presents to office for 4 week follow-up. Recent labs reviewed with patient. Medicationlist reviewed. Has recent hospitalizations at [facility] related to hematochezia, lower GI bleed. Initial hospitalization require transfusion. EGD looked okay. Colonoscopy showed AVMs which were treated. She did have a return visit to [facility] for recurrent hematochezia and again hadsome AVMs treated on colonoscopy. Had initial hospital follow-up had not noted any further symptoms. Had repeat labs which showed Hgb up to 11.4. Iron panel, BMP looked good. Did have virtual follow up with GI who recommended continuing PPI. Has been noting some swelling in her legs and hands since home from hospital. Does take Torsemide 20mg daily prescribed by Pulmonology. Feels that she has been gaining weight at home. Typically states that this is from fluid. She does not note any increased shortness a breath or orthopnea. No chesttightness or palpitations. PMH: Patient Active Problem List Diagnosis Code Postoperative hypothyroidism E89.0 HISTORY OF TOBACCO USE Z87.891 Esophageal reflux K21.9 Serologic abnormality R89.4 Autoimmune hepatitis (HCC) K75.4 PPD positive, treated R76.11 Normocytic anemia D64.9 Bright red blood per rectum K62.5 Acute on chronic respiratory failure with hypoxia (HCC) J96.21 Controlled substance agreement signed Z79.899 Disordered sleep G47.9 MEDICATION USE AGREEMENT [id number] Systemic lupus erythematosus (HCC) M32.9 Esophageal varices [...] 2 times a day. 60 Tab 11 Nebulizer Device For use with duoneb treatment 1 Each 0 Calcium Citrate 200 MG Oral Tablet Take [...] MOUTH IN THE MORNING. 180 Tablet 1 Albuterol Sulfate HFA 108 (90 Base) MCG/ACT Inhalation Aerosol Solution Inhale 2 Puffs by mouth every 4 hours as needed for Shortness of Breath or Wheezing. 18 g 5 Spiriva HandiHaler 18 MCG Inhalation Capsule (tiotropium [...] mouth in the morning. 60 Each 11 Ipratropium-Albuterol 0.5-2.5 (3) MG/3ML Inhalation Solution (Duoneb) Inhale 3 mL via nebulizer in the morning and 3 mL at noon and 3 mL in the evening and 3 mL before bedtime. (Patient taking differently: Inhale 3 mL via nebulizer every 4 hours as needed for Dyspnea.) 3600 mL 11 Mycophenolate Mofetil 500 MG Oral Tablet [...] rest, and with ambulation 1 Each 0 Omeprazole 20 MG Oral [...] BY MOUTH EVERY MORNING 180 Tablet 1 No current facility-administered medications for this visit. Past Medical History: Diagnosis Date Arthritis Asthma Autoimmune hepatitis (HCC) Cirrhosis (HCC) Esophageal varices in cirrhosis (HCC) Esophageal varices without mention of bleeding in diseases classified elsewhere 12/19/2012 upper endoscopy Hemorrhage of gastrointestinal tract, unspecified 12/20/2012 colonoscopy Hiatal hernia Laryngospasm Portal hypertensive gastropathy Postsurgical hypothyroidism Schatzki's ring Sialoadenitis Systemic lupus erythematosus (HCC) diagnosis in question Toxic diffuse goiter Past Surgical History: Procedure Laterality Date BREAST LESION,OTHER,EXCISION Right 05/09/2017 benign excisional biopsy COLONOSCOPY, DIAGNOSTIC (RECTUM) 12/20/2012 COLONOSCOPY FLEXIBLE PROXIMAL DIAGNOSTIC performed by Naomie Magallanes MD at ENDOSCOPY [facility] COLONOSCOPY, DIAGNOSTIC (RECTUM) N/A 05/10/2016 COLONOSCOPY FLEXIBLE PROXIMAL DIAGNOSTIC performed by Jeffrey Weber MD at ENDOSCOPY [facility] COLONOSCOPY, DIAGNOSTIC (RECTUM) N/A 05/11/2022 COLONOSCOPY FLEXIBLE PROXIMAL DIAGNOSTIC performed by Jeffrey Weber MD at ENDOSCOPY [facility] COLONOSCOPY, DIAGNOSTIC (RECTUM) N/A 12/23/2022 COLONOSCOPY FLEXIBLE PROXIMAL DIAGNOSTIC performed by Luisito Reinoso DO at ENDOSCOPY [facility] COLONOSCOPY, DIAGNOSTIC (RECTUM) N/A 01/02/2023 COLONOSCOPY FLEXIBLE PROXIMAL DIAGNOSTIC performed by Naomie Magallanes MD at ENDOSCOPY [facility] EGD, FLEXIBLE, DIAGNOSTIC 05/30/2012 UPPER GI ENDOSCOPY DIAGNOSTIC performed by Cipriano Butler MD at ENDOSCOPY [facility] EGD, FLEXIBLE, DIAGNOSTIC 12/19/2012 UPPER GI ENDOSCOPY DIAGNOSTIC performed by Krupa Robledo DO at ENDOSCOPY [facility] EGD, FLEXIBLE, DIAGNOSTIC N/A 03/21/2014 ESOPHAGOGASTRODUODENOSCOPY (EGD), FLEXIBLE, TRANSORAL, DIAGNOSTIC performed by Mary Alejandro ENDOSCOPY [facility] EGD, FLEXIBLE, DIAGNOSTIC N/A 12/18/2014 ESOPHAGOGASTRODUODENOSCOPY (EGD), FLEXIBLE, TRANSORAL, DIAGNOSTIC performed by Jeffrey Weber MD at ENDOSCOPY [facility] EGD, FLEXIBLE, DIAGNOSTIC N/A 05/10/2016 ESOPHAGOGASTRODUODENOSCOPY (EGD), FLEXIBLE, TRANSORAL, DIAGNOSTIC performed by Jeffrey Weber MD at ENDOSCOPY [facility] EGD, FLEXIBLE, DIAGNOSTIC 06/11/2018 hiatal hernia, repeat 3 yrs/ESOPHAGOGASTRODUODENOSCOPY (EGD), FLEXIBLE, TRANSORAL, DIAGNOSTIC performed by Adelaida Sood MD at ENDOSCOPY [facility] EGD, FLEXIBLE, DIAGNOSTIC N/A 11/01/2019 ESOPHAGOGASTRODUODENOSCOPY (EGD), FLEXIBLE, TRANSORAL, DIAGNOSTIC performed by Michael Bar MD at ENDOSCOPY [facility] EGD, FLEXIBLE, DIAGNOSTIC N/A 05/11/2022 ESOPHAGOGASTRODUODENOSCOPY (EGD), FLEXIBLE, TRANSORAL, DIAGNOSTIC performed by Jeffrey Weber MD at ENDOSCOPY [facility] EGD, FLEXIBLE, DIAGNOSTIC N/A 12/21/2022 ESOPHAGOGASTRODUODENOSCOPY (EGD), FLEXIBLE, TRANSORAL, DIAGNOSTIC performed by Wilmer Bhatia MD at ENDOSCOPY [facility] EXC BREAST LESION RADMARK Right 05/09/2017 EXCISION OF BREAST LESION RADIOLOGICAL MARKER performed by Vicky Bahena MD at OR [facility] INFORMATION 1998 bone spur/cyst & ganglia removal left foot x2 INJECT DX/THER SUBSTANCE INTERLAMINAR LUMBAR/SACRAL W IMAGE GUIDE 07/22/2021 INJECTION SPINE LUMBAR OR SACRAL performed by Wong Wander Cornelius, DO at OR [facility] INJECT DX/THER SUBSTANCE INTERLAMINAR LUMBAR/SACRAL W IMAGE GUIDE 11/16/2021 INJECTION SPINE LUMBAR OR SACRAL performed by Wong Wander Cornelius, DO at OR [facility] INJECT DX/THER SUBSTANCE INTERLAMINAR LUMBAR/SACRAL W IMAGE GUIDE 06/15/2022 INJECTION SPINE LUMBAR OR SACRAL performed by Wong Wander Cornelius, DO at OR [facility] INJECT DX/THER SUBSTANCE INTERLAMINAR LUMBAR/SACRAL W IMAGE GUIDE 11/09/2022 INJECTION SPINE LUMBAR OR SACRAL performed by Wong Wander Cornelius, at OR [facility] IR BIOPSY 07/02/2012 TRANSCATHETER BIOPSY performed by Fabian Larry MD at RADIOLOGY [facility] L-/S-SPINE PARAVERTEBRAL FACET INJ,1 LEVEL 02/15/2018 L-/S-SPINE PARAVERTEBRAL FACET INJ, 1 LEVEL performed by Wong Cornelius DO at OR [facility] L-/S-SPINE PARAVERTEBRL FACET INJ,2 LEVELS 02/15/2018 L-/S-SPINE PARAVERTEBRAL FACET INJ, 2 LEVELS performed by Wong Cornelius DO at OR [facility] LAPAROSCOPY; CHOLECYSTECTOMY 03/23/10 Dr Ingram LAPAROSCOPY;RMV ADNEXAL STRUCT Bilateral 03/19/2021 LAPAROSCOPIC OOPHORECTOMY AND OR SALPINGECTOMY performed by Randi Mukherjee DO at OR [facility] LIGATE/CUT OVIDUCT(S) 1993 Tubal Ligation LUMBAR / SACRAL EPIDURAL, SINGLE LEVEL 03/05/2018 INJECTION TRANSFORAMINAL EPIDURAL LUMBAR OR SACRAL performed by Wong Cornelius DO at OR [facility] MISCELLANEOUS ORDER ([facility] ONLY) 2001 torn retina repair at [facility] EYE NEEDLE BIOPSY OF LIVER 03/23/10 Dr Ingram REMOVAL OF FOOT LESION Left REMOVAL OF KNEE CARTILAGE 1994 bilateral REMOVAL OF THYROID GLAND REMOVE CATARACT, INSERT LENS PROSTH 10/15/2012 EXTRACAPSULAR CATARACT REMOVAL WITH INTRAOCULAR LENS performed by Shankar Jones MD at OR [facility] REMOVE CATARACT, INSERT LENS PROSTH 11/29/2012 EXTRACAPSULAR CATARACT REMOVAL WITH INTRAOCULAR LENS performed by Beau Leroy Jr., MD at OR [facility] RIGHT HEART CATH W/ O2 SAT AND CO Right 06/30/2020 RIGHT HEART CATH W/ O2 SAT AND CO performed by Gwyn Akins DO at CARDIAC LABS [facility] SACROILIAC JOINT INJECT W/GUIDANCE 12/25/2017 INJECTION SACROILIAC JOINT performed by Wong Cornelius DO at OR [facility] Review of patient's allergies indicates: Allergen Reactions Dilaudid [Hydromorphone Hcl] Itching Environmental Pollen -asthmatic attacks Family History Problem Relation Age of Onset Heart Disorder Mother 1st [place] age 58 Stroke Mother Neurological Disorder Mother aneurysm Allergies Mother Hypertension Mother Diabetes Father oral control Cancer Father colon cancer, esophageal cancer No Past Hx Brother No Past Hx Brother No Past Hx Brother Genitourinary Disorder Daughter hysterectomy at 20 No Past Hx Daughter No Past Hx Daughter Neurological Disorder Grandmother (Maternal) aneurysm Stroke Grandmother (Maternal) Ear Problems Grandmother (Maternal) Heart Disorder Grandfather (Maternal) [place] Stroke Grandfather (Maternal) Breast Cancer Grandmother (Paternal) Neurological Disorder Aunt (Unspecified) aneurysm Breast Cancer Aunt (Paternal) X4 Family Status Relation Status Mo Fa Alive Bro Alive Bro Alive Bro Alive Penny Alive Penny Alive Penny Alive MGMA MGFA PGMA PGFA AUNT (Not Specified) PAUNT (Not Specified) Social History Socioeconomic History Marital status: Spouse name: Not on file Number of children: 3 Years of education: Not on file Highest education level: Not on file Occupational History Not on file Tobacco Use Smoking status: Former Packs/day: 0.25 Years: 25.00 Additional pack years: 0.00 Total pack years: 6.25 Types: Cigarettes Smokeless tobacco: Never Tobacco comments: 5-6 a day Vaping Use Vaping Use: Never used Substance and Sexual Activity Alcohol use: No Drug use: Not Currently Types: Marijuana Comment: has not used in "quite a while" Sexual activity: Yes Partners: Male control/protection: Surgical Comment: tubal 1994 Other Topics Concern Not on file Social History Narrative 05/06/13 With current partner since 1994 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 -Menarche at: 16 -Cycle Length: none since July 2012 -Days of Flow:0 -Cramps: 0 -PMS S&S: 0 - Control use:0 -Abnormal PAPs: none -Hx of Vaginal Infections:none -Coitis age:19 -Total partners:3 Social Determinants of Health Financial Resource Strain: Not on file Food Insecurity: No Food Insecurity (10/03/2022) Hunger Vital Sign Worried About Running Out of Food in the Last Year: Never true Ran Out of Food in the Last Year: Never true Transportation Needs: Not on file Physical Activity: Not on file Stress: Not on file Social Connections: Not on file Intimate Partner Violence: Not on file Housing Stability: Not on file Travel Screening Question 02/22/2023 4:01 PM EST - Filed by Patient Do you have any of the following new or worsening symptoms? None of these Have you recently been in contact with someone who was sick? No / Unsure Myc Visit Accident Related Question Question 02/22/2023 4:01 PM EST - Filed by Patient Is this visit related to an accident? (i.e work, motor vehicle) No Phq2 Adult-Depression Question 02/22/2023 4:23 PM EST - Filed by Reggie Eddy, DO Over the last two weeks, how often have you been bothered by any of the following problems? Little interest or pleasure in doing things Not at all Feeling down, depressed or hopeless Not at all Sum of the PHQ1 and PHQ2 questions (range: 0 - 6) 0 (Further screening not recommended) Review of Systems Constitutional: Positive for fatigue. Negative for chills and fever. HENT: Negative for congestion, sore throat and trouble swallowing. Eyes: Negative for photophobia and itching. Respiratory: Negative for apnea, cough, shortness of breath and wheezing. Cardiovascular: Positive for leg swelling. Negative for chest pain and palpitations. Gastrointestinal: Negative for abdominal distention, abdominal pain, nausea and vomiting. Genitourinary: Negative for dysuria and frequency. Musculoskeletal: Negative for arthralgias and myalgias. Skin: Negative for pallor and rash. Neurological: Negative for dizziness, light-headedness and headaches. Psychiatric/Behavioral: Negative for sleep disturbance. The patient is not nervous/anxious. Objective BP 108/66 | Pulse 64 | Temp 36.9 C (98.5 F) | Resp 16 | Wt 52.7 kg (116 lb 3.2 oz) | LMP 07/09/2012 | SpO2 90% | BMI 18.76 kg/m | BSA 1.57 m Physical Exam Constitutional: General: She is not in acute distress. Appearance: She is not ill-appearing. HENT: Head: Normocephalic and atraumatic. Right Ear: Tympanic membrane, ear canal and external ear normal. Left Ear: Tympanic membrane, ear canal and external ear normal. Nose: Nose normal. No congestion or rhinorrhea. Mouth/Throat: Mouth: Mucous membranes are moist. Pharynx: Oropharynx is clear. Eyes: General: No scleral icterus. Extraocular Movements: Extraocular movements intact. Conjunctiva/sclera: Conjunctivae normal. Pupils: Pupils are equal, round, and reactive to light. Cardiovascular: Rate and Rhythm: Normal rate and regular rhythm. Pulses: Normal pulses. Heart sounds: Normal heart sounds. No murmur heard. No friction rub. No gallop. Pulmonary: Effort: Pulmonary effort is normal. Breath sounds: Normal breath sounds. No wheezing, rhonchi or rales. Abdominal: General: Bowel sounds are normal. There is no distension. Palpations: Abdomen is soft. There is no mass. Tenderness: There is no abdominal tenderness. Comments: No obvious abdominal distention or palpable fluid wave Musculoskeletal: General: No deformity. Normal range of motion. Cervical back: Normal range of motion and neck supple. Right lower leg: Edema present. Left lower leg: Edema present. Comments: Slight lower extremity edema but not significantly pitting. Negative Homans sign Lymphadenopathy: Cervical: No cervical adenopathy. Skin: General: Skin is warm and dry. Coloration: Skin is not jaundiced. Findings: No rash. Neurological: General: No focal deficit present. Mental Status: She is oriented to person, place, and time. Cranial Nerves: No cranial nerve deficit. Sensory: No sensory deficit. Motor: No weakness. Psychiatric: Mood and Affect: Mood normal. Behavior: Behavior normal. Latest Reference Range & Units 01/10/23 10:58 01/12/23 15:22 BNP, NT-Pro <300 pg/mL 81 Sodium 135 - 146 mmol/L 145 Potassium 3.5 - 5.1 mmol/L 3.5 Chloride 98 - 107 mmol/L 103 CO2 22 - 32 mmol/L 29 BUN 6 - 20 mg/dL 9 Creatinine 0.5 - 1.0 mg/dL 0.9 Estimated Glomerular Filtration Rate >=60 mL/min 72 Anion Gap 7 - 15 mmol/L 13 Glucose 70 - 120 mg/dL 105 Calcium 8.4 - 10.2 mg/dL 9.1 Magnesium 1.5 - 2.6 mg/dL 1.9 Folic Acid >4.5 ng/mL 10.2 TSH 0.27 - 4.20 uIU/mL 0.27 - 4.20 uIU/mL 2.38 2.36 TSH WITH FREE T4 IF INDICATED Rpt ANEMIA CBC Rpt ! WBC 4.00 - 10.80 K/uL 6.62 HGB 12.0 - 15.3 g/dL 11.4 (L) HCT 36.0 - 45.2 % 40.5 MCV 81.5 - 97.5 fL 91.8 PLT 140 - 400 K/uL 501 (H) Absolute Neutrophils 1.80 - 7.70 K/uL 4.54 Absolute Lymphocytes 1.00 - 4.80 K/ul 1.10 Absolute Monocytes 0.00 - 1.10 K/uL 0.71 Absolute Eosinophils 0.00 - 0.70 K/uL 0.15 Absolute Basophils 0.00 - 0.20 K/uL 0.10 IRON SCREEN, INCLUDING TIBC Rpt Rpt Iron 33 - 151 ug/dL 63 Iron Binding Capacity 250 - 425 ug/dL 309 Transferrin Saturation Percent 15 - 55 % 20 Vitamin B12 232 - 1,245 pg/mL 559 !: Data is abnormal (L): Data is abnormally low (H): Data is abnormally high Rpt: View report in Results Review for more information ASSESSMENT/PLAN: AVM (arteriovenous malformation) of colon (Primary) Anemia associated with acute blood loss Other emphysema (HCC) Prediabetes - COMPREHENSIVE METABOLIC PANEL; Future; Expected date: 05/25/2023 - CBC WITH WBC DIFFERENTIAL; Future; Expected date: 05/25/2023 - LIPID PANEL WITH DIRECT LDL IF TG IS HIGH; Future; Expected date: 05/25/2023 - HEMOGLOBIN A1C; Future; Expected date: 05/25/2023 - TSH WITH FREE T4 IF INDICATED; Future; Expected date: 05/25/2023 Postoperative hypothyroidism - COMPREHENSIVE METABOLIC PANEL; Future; Expected date: 05/25/2023 - CBC WITH WBC DIFFERENTIAL; Future; Expected date: 05/25/2023 - LIPID PANEL WITH DIRECT LDL IF TG IS HIGH; Future; Expected date: 05/25/2023 - HEMOGLOBIN A1C; Future; Expected date: 05/25/2023 - TSH WITH FREE T4 IF INDICATED; Future; Expected date: 05/25/2023 Other specified disorders of adrenal gland (HCC) COPD, group C, by GOLD 2017 classification (HCC) Pulmonary hypertension (HCC) - COMPREHENSIVE METABOLIC PANEL; Future; Expected date: 05/25/2023 - CBC WITH WBC DIFFERENTIAL; Future; Expected date: 05/25/2023 - LIPID PANEL WITH DIRECT LDL IF TG IS HIGH; Future; Expected date: 05/25/2023 - HEMOGLOBIN A1C; Future; Expected date: 05/25/2023 - TSH WITH FREE T4 IF INDICATED; Future; Expected date: 05/25/2023 Portal hypertension (HCC) Systemic lupus erythematosus, unspecified SLE type, unspecified organ involvement status (HCC) Autoimmune hepatitis (HCC) Other cirrhosis of liver (HCC) HTN, goal below 130/80 - POPULATION HEALTH REFERRAL OP Plan: Patient presents office for routine follow-up. Has been recovering well from hematochezia requiring hospitalization. Suspect colonic AVMs Has had telemedicine follow-up with GI. Continue omeprazole 20 mg daily. Reviewed her recent labs. Hemoglobin responded well up to 11.4. Iron panel looks appropriate. In regards to complaints of edema. Patient does not examine like significantly overloaded however she has had some weight gain at home. I suggested increasing her torsemide to 40 mg daily for the next 5 days. She knows she needs to return to 20 mg daily after that. She should continue to monitor her weight at home Patient does have history of hypertension on medications. She notes at times she feels she can get lower BP readings. She was wondering about an ambulatory blood pressure cuff. Suggested possible population health referral. She might benefit from blood pressure cuff in ambulatory setting that will transmit readings to our office for close monitoring Follow-up with GI, pulmonology as scheduled. Will repeat labs prior to next follow-up to re-evaluate renal function, hepatic function, CBC, thyroid No current evidence of depression. PHQ 2 score of 0 Defers vaccine recommendations at this time. Will revisit at later encounter Continue tramadol as needed for pain. PDMP checked without issues. Follow Up: Return in about 4 days (around 02/26/2023), or if symptoms worsen or fail to improve, for Return with Physician. | For: Return with Physician | Check-out note: 3-4 month follow up Fasting labs 1 week prior Reggie Eddy DO documented in this encounter Nursing Notes * Axel Cesar LPN - 02/22/2023 4:08 PM EST The patient has been properly identified by confirmation of name and date of . Chief Complaint Patient presents with Follow Up Bilateral lower leg edema and hands. documented in this encounter Plan of Treatment Upcoming Encounters Date Type Department Care Team (Late st Contact Info) Description 03/16/2023 10:40 AM EST Office Visit Pulmonary Medicine, [place] [address] [place] [address] Twin Hayden MD [address] [place] [address] 05/24/2023 10:00 AM EST Laboratory [facility] [place] [address] [place] [phone] [facility], [facility] [address] [place] [address] 05/31/2023 10:40 AM EST Office Visit [facility] [address] [place] [phone] Reggie Eddy, DO [address] [place] [address] 07/03/2023 8:15 AM EDT Telemedicine [address] [id number] Fran French, DO [address] [place], [place] [id number] Scheduled Orders Name Type Priority Associated Diagnoses Orde r Schedule COMPREHENSIVE METABOLIC PANEL Lab Routine Prediabetes Postoperative hypothyroidism Pulmonary hypertension (HCC) Expected: 05/25/2023 (Approximate), Expires: 02/22/2024 CBC WITH WBC DIFFERENTIAL Lab Routine Prediabetes Postoperative hypothyroidism Pulmonary hypertension (HCC) Expected: 05/25/2023 (Approximate), Expires: 02/23/2024 LIPID PANEL WITH DIRECT LDL IF TG IS HIGH Lab Routine Prediabetes Postoperative hypothyroidism Pulmonary hypertension (HCC) Expected: 05/25/2023, Expires: 02/23/2024 HEMOGLOBIN A1C Lab Routine Prediabetes Postoperative hypothyroidism Pulmonary hypertension (HCC) Expected: 05/25/2023 (Approximate), Expires: 02/22/2024 TSH WITH FREE T4 IF INDICATED Lab Routine Prediabetes Postoperative hypothyroidism Pulmonary hypertension (HCC) Expected: 05/25/2023 (Approximate), Expires: 02/22/2024 TOXICOLOGY, URINESCREEN W/ CONFIRMATION Lab Routine Systemic lupus erythematosus, unspecified SLE type, unspecified organ involvement status (HCC) Expected: 05/25/2023, Expires: 02/23/2024 Scheduled Procedures Name Priority Associated Diagnoses Date/Ti [...] DIAGNOSTIC Recall Gastroesophageal reflux disease without esophagitis Scheduled Referrals Name Type Priority Associated Diagnoses Orde r Schedule POPULATION HEALTH REFERRAL OP Referral Within 10 days (routine) HTN, goal below 130/80 Ordered: 02/22/2023 Health Maintenance Due Date Last Done Comments [...] this encounter Medical Devices Implanted Type Area Utility Bill Collection Clerk Device Identifier Shelf Expiration Date Model / Serial / Lot Lens 22.0 Sa60at - [id number] Implanted:Qty: 1 on 10/15/2012 at [facility] Left: Eye [employer] 10/07/2016 SA60AT / [id number] / Lens 22.0 Sa60at - [id number] Implanted:Qty: 1 on 11/29/2012 at OR [facility] [place] Right: Eye [employer] 03/31/2017 SA60AT / [id number] / Duraclip 11mm Repositionable - [id number] Implanted:Qty: 1 on 05/11/2022 by Jeffrey Weber MD at ENDOSCOPY 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 Anemia associated with acute blood loss Acute posthemorrhagic anemia Other emphysema (HCC) Other emphysema Prediabetes Other abnormal glucose Postoperative hypothyroidism Postsurgical hypothyroidism Other specified disorders of adrenal gland (HCC) COPD, group C, by GOLD 2017 classification (HCC) Pulmonary hypertension (HCC) Other chronic pulmonary heart diseases Portal hypertension (HCC) Portal hypertension Systemic lupus erythematosus, unspecified SLE type, unspecified organ involvement status (HCC) Autoimmune hepatitis (HCC) Autoimmune hepatitis Other cirrhosis of liver (HCC) HTN, goal below 130/80 Unspecified essential hypertension documented in this encounter Advance Directives Latest [...] the patient have Health Care Power of Pony Ride Attendant? No Care Teams Utility Assembler Relationship Specialty Start Date End Date Reggie Eddy DO [address] [place] [id number] PCP - General Internal Medicine 03/08/22 documented as of this encounter
--- OUTSIDE RECORDS SUMMARY | 2023-03-19 22:27 | External Medical Summary | Summary of Care ---
Author Name Unknown Organization [facility] Address [address] [place] [address] Phone [phone] Care Team Providers Care Latin Teacher Name Role Phone Reggie Wei DO Primary Care Provid er Reason for Visit * Reason Onset Date Comments Medication Refill 02/09/2023 Encounter Details Date Type Department Care Team ([facility] st Contact Info) Description 02/09/2023 Refill Family [facility] [address] [place] [address] Reggie Wei DO [address] [place] [phone] MEDICATION USE AGREEMENT; DDD (degenerative disc disease), cervical; DDD (degenerative disc disease), thoracic; DDD (degenerative disc disease), lumbar Allergies Active Allergy Reactions Criticality Noted Date Comments Hydromorphone Hcl Itching Medium 11/09/2015 Environmental Low 05/04/2010 Pollen -asthmatic attacks documented as of this encounter (statuses as of 02/11/2023) Medications Medication Sig Dispensed Refills Start Date [...] Active Additional Information Patient taking differently:3 mL [id number] PRN, Dyspnea, Reported on 12/21/2022 Mycophenolate Mofetil [...] Pain, Moderate. 240 Tablet 0 02/11/2023 Active Ambrisentan 10 MG Oral Tablet (Letairis)Indicatio [...] 90 Tablet 1 09/30/2022 02/10/20 Discontinu ed(Refill) traMADol HCl 50 MG Oral Tablet (Ultram)Indications :MEDICATION USE AGREEMENT,DDD (degenerative disc disease), cervical,DDD (degenerative disc disease), thoracic,DDD (degenerative disc disease), lumbar Take 2 Tablets by mouth every 6 hours as needed for Pain, Moderate. 240 Tablet 0 12/20/2022 02/10/20 Discontinu ed(Refill) documented as of this encounter (statuses as of 02/11/2023) Active Problems Problem Noted Date Diagnosed Date [...] o Lost to follow up- moved to [place] o 2009: Dx with AIH: incomplete cirrhosis found incidentally at time of cholecystectomy when liver bx obtained; grade 1 varices; MARY , ASMA positive - Tx pred initially then Imuran 08/19 then MMF in 08/20 when she developed ascites o 2010: Rheum exam- not typical SLE sx- negative/normal C3/C4, SSA/SSB, centromere, BLENDING MACHINE FEEDER/Sm, ESR,CRP. dsDNA borderline. [place] unlikely SLE. o 2012: Seen again by Rheum- Dr. Jung- photosensitive rash and raynauds. Borderline dsDNA. [place] likely SLE, though possible AIH could explain (+) MARY. HCQ discussed but wanted to avoid by GI. o [id number]: multiple hospitalizations for ascites; returned to Rheum [...] as of this encounter (statuses as of 02/11/2023) Resolved Problems Problem Noted Date Diagnosed Date [...] as of this encounter (statuses as of 02/11/2023) Immunizations Name Administration Dates Next Due HEP [...] encounter Miscellaneous Notes * Telephone Encounter - Reggie Wei DO - 02/11/2023 10:47 AM EDT Signed Prescriptions: Disp Refills traMADol HCl 50 MG Oral Tablet (Ultram) 240 Ta*0 Sig: Take 2 Tablets by mouth every 6 hours as needed for Pain, Moderate. Authorizing Provider: REGGIE WEI * Telephone Encounter - Mary Topete [facility] - 02/10/2023 2:09 PM EDTPending Prescriptions: Disp Refills traMADol HCl 50 MG Oral Tablet (Ultram) 240 Ta*0 Sig: Take 2 Tablets by mouth every 6 hours as needed for Pain, Moderate. * Telephone Encounter - Mary Topete [facility] - 02/10/2023 2:09 PM EDT I have reviewed the patients controlled substance dispensing history in the Prescription Drug Monitoring Program in compliance with the [facility] regulations before prescribing a controlled substance. PDMP checked on 02/10/2023. Pending Prescriptions: Disp Refills traMADol HCl 50 MG Oral Tablet (Ultram) 240 Ta*0 Sig: Take 2 Tablets by mouth every 6 hours as needed for Pain, Moderate. Last Visit: 01/10/2023 (in office), 12/20/2022 (telemedicine) Next Visit: 02/22/2023 Date medication was last filled: 12/28/22 Date medication is due for refill: 01/25/23 Pharmacy: [id number] YORDAN TORREZ Is this request for a controlled substance? Yes and Urine Drug Screen Not completed Toxicology results: Results for orders placed or performed in visit on 09/07/21 PAIN MANAGEMENT DRUG PANEL, URINE W/ INTERPRETATION Result Value Compliance Interpretation Based on medication info provided, The absence of methadone and metabolite is INCONSISTENT with methadone use. The presence of tramadol and desmethyltramadol is CONSISTENT with Tramadol prescription. Amphetamine Negative Benzodiazepines Negative Cannabinoids Negative Cocaine Metabolite Negative Fentanyl Negative Hydrocodone / Hydromorphone Negative Methadone Metabolite Refer to confirmation results (A) Morphine / Codeine Negative Oxycodone / Oxymorphone Negative Valid Interpretation Normal Creatinine CESAR 20 Narrative Cutoff Concentrations: Drug Level Amphetamines 500 ng/mL Benzodiazepines 100 ng/mL Cannabinoids 50 ng/mL Cocaine Metabolite 150 ng/mL Fentanyl 1 ng/mL Hydrocodone / Hydromorphone 300 ng/mL Methadone Metabolite 100 ng/mL Morphine / Codeine 300 ng/mL Oxycodone / Oxymorphone 100 ng/mL Screening results are presumptive and can only be used for medical purposes. Confirmatory testing is available upon request. *Note: Due to a large number of results and/or encounters for the requested time period, some results have not been displayed. A complete set of results can be found in Results Review. Please approve if appropriate. Mary Eisenberg Clinical Pharmacist [facility] ([facility]) (Formerly Telepharmacy) [phone] 02/10/2023, 2:09 PM documented in this encounter Plan of Treatment Upcoming Encounters Date Type Department Care Team ([facility] st Contact Info) Description 02/22/2023 4:00 PM EST Office Visit [address] [address] [address] 03/16/2023 10:40 AM EST [facility] [address] [place] [address] Twin Hayden MD [address] [place], [place] [id number] 07/03/2023 8:15 AM EDT Telemedicine [address] [phone] Fran French [address] [place], [place] [phone] Scheduled Procedures Name Priority Associated Diagnoses Date/Ti [...] this encounter Medical Devices Implanted Type Area Material Specialist Device Identifier Shelf Expiration Date Model / Serial / Lot Lens 22.0 Sa60at - [id number] Implanted:Qty: 1 on 10/15/2012 at OR [facility] Left: Eye [employer] 10/07/2016 SA60AT / [id number] / Lens 22.0 Sa60at - [id number] Implanted:[place] 1 on 11/29/2012 [place] [facility]: Eye [employer] 03/31/2017 SA60AT / [id number] / Duraclip 11mm Repositionable - [id number] Implanted:Qty: 1 on 05/11/2022 by Jeffrey Weber MD [place] [facility] [id number] 01/29/2024 [id number] / / [id number] documented as of this encounter Visit Diagnoses Diagnosis MEDICATION USE AGREEMENT DDD (degenerative disc disease), cervical Degeneration of cervical intervertebral disc DDD (degenerative disc disease), thoracic Degeneration of thoracic or thoracolumbar intervertebral disc DDD (degenerative disc disease), lumbar Degeneration of lumbar or lumbosacral intervertebral disc documented in this encounter Advance Directives Latest [...] the patient have Health Care Power of Tea Room Manager? No Care Teams Latin Teacher Relationship Specialty Start Date End Date Reggie Wei DO [address] [place] [phone] PCP - General Internal Medicine 03/08/22 documented as of this encounter
--- OUTSIDE RECORDS SUMMARY | 2023-03-19 22:27 | External Medical Summary | Summary of Care ---
Author Name Unknown Organization [facility] Address [address] [place] [address] Phone [phone] Care Team Providers Care Psychiatric Aide Name Role Phone Reggie Eddy DO Primary Care Provid er Reason for Visit * Reason Comments eRx-Medication Refill Encounter Details Date Type Department Care Team (Late st Contact Info) Description 02/15/2023 Refill Pulmonary Medicine, [place] [address] [place] [address] Twin Hayden MD [address] [place] [address] Cirrhosis of liver with ascites, unspecified hepatic cirrhosis type Allergies Active Allergy Reactions Criticality Noted Date Comments Hydromorphone Hcl Itching Medium 11/09/2015 Environmental Low 05/04/2010 Pollen -asthmatic attacks documented as of this encounter (statuses as of 02/16/2023) Medications Medication Sig Dispensed Refills Start Date End Date Status Ascorbic Acid (VITAMIN C-CORWIN HIPS) 1000 MG TABS Take 1 Tablet by mouth in the morning. 0 Active Ferrous Sulfate 325 (65 Fe) MG Oral Tablet (Feosol) Take 1 Tab by mouth 2 times a day. 60 Tab 11 1 Active Nebulizer Device For use with duoneb treatment 1 Each 0 1 Active Calcium Citrate 200 MG Oral TabletIndications:H ypocalcemia Take 400 mg by mouth 2 times a day. 120 Tab 0 1 Active Lactulose 10 GM/15ML Oral Solution (Constulose)Indicat ions:Cirrhosis of liver with ascites, unspecified hepatic cirrhosis type TAKE 30 ML BY MOUTH 3 TIMES A DAY 2838 mL 5 2 Active Additional Information Patient taking differently: 20 g Oral PRN, Constipation, Reported on 12/21/2022 Magnesium Chloride 64 MG Oral Tablet Delayed Release (Mag-64)Indications :Hypomagnesemia Take by mouth 4 Tablets in the morning. 360 Tablet 3 2 Active Klor-Con M20 20 MEQ Oral Tablet Extended Release (Potassium Chloride Gianna ER) TAKE 2 TABLETS BY MOUTH IN THE MORNING. 180 Tablet 1 2 Active Albuterol Sulfate HFA 108 (90 Base) MCG/ACT Inhalation Aerosol SolutionIndications :Sinobronchitis Inhale 2 Puffs by mouth every 4 hours as needed for Shortness of Breath or Wheezing. 18 g 5 2 Active Spiriva HandiHaler 18 MCG Inhalation Capsule (tiotropium bromide) Inhale 1 Capsule by mouth in the morning. . Do not swallow capsule.. 30 Capsule 5 3 Active Gabapentin 300 MG Oral Capsule (Neurontin)Indicati ons:DDD (degenerative disc disease), cervical,DDD (degenerative disc disease), thoracic,DDD (degenerative disc disease), lumbar Take 2 Capsules by mouth at bedtime. Take one cap by mouth at bedtime for two weeks, then may increase to 2 caps at bedtimes 180 Capsule 1 3 Active Fluticasone Furoate-Vilanterol 200-25 MCG/ACT Inhalation Aerosol Powder Breath Activated (BREO ellipta) Inhale 1 Puff by mouth in the morning. 60 Each 11 3 Active Ipratropium-Albuter ol 0.5-2.5 (3) MG/3ML Inhalation Solution (Duoneb) Inhale 3 mL via nebulizer in the morning and 3 mL at noon and 3 mL in the evening and 3 mL before bedtime. 3600 mL 11 3 Active Additional Information Patient taking differently:3 mL [id number] PRN, Dyspnea, Reported on 12/21/2022 Mycophenolate Mofetil 500 MG Oral Tablet (Cellcept)Indicatio ns:Autoimmune hepatitis (HCC) Take 1 Tablet by mouth in the morning and 1 Tablet before bedtime. 180 Tablet 1 3 Active Fluticasone Propionate 50 MCG/ACT Nasal Suspension (Flonase)Indication s:Nasal congestion Administer 2 Sprays into nostril in the morning. 48 mL 3 3 Active Spironolactone 100 MG Oral Tablet (Aldactone)Indicati ons:Esophageal varices in cirrhosis (HCC) TAKE 1 AND 1/2 TABLETS BY MOUTH EVERY DAY 135 Tablet 1 3 Active Additional Information Patient taking differently: 150 mg Oral Daily(AM), TAKE 1 AND 1/2 TABLETS BY MOUTH EVERY DAY, Reported on 12/21/2022 Levothyroxine Sodium 150 MCG Oral Tablet (Levoxyl)Indication s:Postoperative hypothyroidism TAKE 1 TABLET BY MOUTH DAILY IN THE MORNING. (AT LEAST 30 MIN PRIOR TO BREAKFAST OR OTHER MEDS) 90 Tablet 1 3 Active Nadolol 40 MG Oral Tablet (Corgard)Indication s:Rectal varices,Esophageal varices in cirrhosis (HCC) TAKE 1 TABLET BY MOUTH EVERY DAY IN THE MORNING 90 Tablet 1 3 Active Tadalafil (PAH) 20 MG Oral Tablet Take 2 Tablets by mouth in the morning. 30 Tablet 11 3 Active oxygen IN GAS 2 liters at night, at rest, and with ambulation 1 Each 0 3 Active Omeprazole 20 MG Oral Capsule Delayed Release (PriLOSEC)Indicatio ns: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 Take 1 Capsule by mouth in the morning and 1 Capsule before bedtime. 60 Capsule 0 3 Active traMADol HCl 50 MG Oral Tablet (Ultram)Indications :MEDICATION USE AGREEMENT,DDD (degenerative disc disease), cervical,DDD (degenerative disc disease), thoracic,DDD (degenerative disc disease), lumbar Take 2 Tablets by mouth every 6 hours as needed for Pain, Moderate. 240 Tablet 0 3 Active traZODone HCl 50 MG Oral Tablet (Desyrel)Indication s:Primary insomnia Take 1 Tablet by mouth at bedtime. 90 Tablet 1 3 Active Ambrisentan 10 MG Oral Tablet (Letairis)Indicatio ns:PAH (pulmonary artery hypertension) (HCC) TAKE 1 TABLET BY MOUTH 1 TIME A DAY. DO NOT HANDLE IF . DO NOT SPLIT, CRUSH, OR CHEW. AVOID INHALATION AND CONTACT WITH SKIN OR EYES. 30 Tablet 5 3 Active Torsemide 20 MG Oral Tablet (Demadex)Indication s:Cirrhosis of liver with ascites, unspecified hepatic cirrhosis type TAKE 2 TABLETS BY MOUTH EVERY MORNING 180 Tablet 1 3 Active Torsemide 20 MG Oral Tablet (Demadex)Indication s:Cirrhosis of liver with ascites, unspecified hepatic cirrhosis type Take 2 Tablets by mouth in the morning. TAKE 2 TABLETS BY MOUTH EVERY DAY IN THE MORNING Strength: 20 mg. 180 Tablet 3 3 02/17/20 23 Discontinued documented as of this encounter (statuses as of 02/16/2023) Active Problems Problem Noted Date Diagnosed Date [...] o Lost to follow up- moved to [place] o 2009: Dx with AIH: incomplete cirrhosis found incidentally at time of cholecystectomy when liver bx obtained; grade 1 varices; MARY , ASMA positive - Tx pred initially then Imuran 08/19 then MMF in 08/20 when she developed ascites o 2010: Rheum exam- not typical SLE sx- negative/normal C3/C4, SSA/SSB, centromere, CLINICAL SPECIALIST/Sm, ESR,CRP. dsDNA borderline. [place] unlikely SLE. o 2012: Seen again by Rheum- Dr. Jung- photosensitive rash and raynauds. Borderline dsDNA. [place] likely SLE, though possible AIH could explain (+) MARY. HCQ discussed but wanted to avoid by GI. o [phone]: multiple hospitalizations for ascites; returned to Rheum [...] as of this encounter (statuses as of 02/16/2023) Resolved Problems Problem Noted Date Diagnosed Date [...] as of this encounter (statuses as of 02/16/2023) Immunizations Name Administration Dates Next Due HEP [...] Telephone Encounter - Twin Hayden MD - 02/16/2023 8:52 AM ESTSigned Prescriptions: Disp Refills Torsemide 20 MG Oral Tablet (Demadex) 180 Ta*1 Sig: TAKE 2 TABLETS BY MOUTH EVERY MORNING Authorizing Provider: TWIN HAYDEN * Telephone Encounter - Torie Hutchison - 02/16/2023 7:56 AM ESTPending Prescriptions: Disp Refills Torsemide 20 MG Oral Tablet [Pharmacy Med *180 Ta*1 Sig: TAKE 2 TABLETS BY MOUTH EVERY MORNING * Telephone Encounter - Torie Hutchison - 02/16/2023 7:55 AM EST Pending Prescriptions: Disp Refills Torsemide 20 MG Oral Tablet (Demadex) [Ph*180 Ta*1 Sig: TAKE 2 TABLETS BY MOUTH EVERY MORNING Most Recent Office Visit Date:05/20/2022 (in office), 03/21/2022 (telemedicine) Next Scheduled Office Visit Date:03/16/2023 If no future appointments scheduled, and last appointment is greater than a year ago, please schedule patient for a follow-up appointment Last date the medication was ordered: Pharmacy: [facility][id number][facility] [address] Please review and sign at your discretion. documented in this encounter Plan of Treatment Upcoming Encounters Date Type Department Care Team ([facility] st Contact Info) Description 02/22/2023 4:00 PM EST Office Visit [address] [phone] Reggie Eddy, [address] [address] 03/16/2023 10:40 AM EST Office Visit Pulmonary Medicine, [place] [address] [place] [address] Twin Hayden MD [address] [place] [address] 07/03/2023 8:15 AM EDT Telemedicine [facility], [address] [id number] Fran French, [address] [place] [address] Scheduled Procedures Name Priority Associated Diagnoses Date/Ti [...] FOR COPD 01/03/2024 01/02/2023 TSH 01/11/2024 01/10/2023, 10/06/2022, 12/21/2022, Additional history exists Lipid Panel 02/29/2024 [...] this encounter Medical Devices Implanted Type Area Community Living Specialist Device Identifier Shelf Expiration Date Model / Serial / Lot Lens 22.0 Sa60at - [id number] Implanted:Qty: 1 on 10/15/2012 at OR [facility] Left: Eye [employer] 10/07/2016 SA60AT / [id number] / Lens 22.0 Sa60at - [id number] Implanted:Qty: 1 on 11/29/2012 at OR [facility] [place] Right: Eye [employer] 03/31/2017 SA60AT / [id number] / Duraclip 11mm Repositionable - [id number] Implanted:Qty: 1 on 05/11/2022 by Jeffrey Weber MD at ENDOSCOPY [facility] [place] [employer] [id number] 01/29/2024 [id number] / / [id number] documented as of this encounter Visit Diagnoses Diagnosis Cirrhosis of liver with ascites, unspecified hepatic [...] the patient have Health Care Power of Electronic Security Technician? No Care Teams Psychiatric Aide Relationship Specialty Start Date End Date Reggie Eddy DO [address] [place] [address] PCP - General Internal Medicine 03/08/22 documented as of this encounter
--- OUTSIDE RECORDS SUMMARY | 2023-03-19 22:27 | External Medical Summary | Summary of Care ---
Author Name Unknown Organization [facility] Address [address] [place] [address] Phone [phone] Care Team Providers Care Yarn Skeins Examiner Name Role Phone Reggie Eddy DO Primary Care Provid er Reason for Visit * Reason Comments eRx-Medication Refill Encounter Details Date Type Department Care Team ([facility] st Contact Info) Description 02/10/2023 Refill Family [facility] [address] [place] [address] Reggie Eddy DO [address] [place] [id number] MEDICATION USE AGREEMENT; DDD (degenerative disc disease), cervical; DDD (degenerative disc disease), thoracic; DDD (degenerative disc disease), lumbar Allergies Active Allergy Reactions Criticality Noted Date Comments Hydromorphone Hcl Itching Medium 11/09/2015 Environmental Low 05/04/2010 Pollen -asthmatic attacks documented as of this encounter (statuses as of 02/12/2023) Medications Medication Sig Dispensed Refills Start Date [...] 09/08/2022 Active Torsemide 20 MG Oral Tablet (Demadex)Indications :Cirrhosis of liver with ascites, unspecified hepatic cirrhosis type Take 2 Tablets by mouth in the morning. TAKE 2 TABLETS BY MOUTH EVERY DAY IN THE MORNING Strength: 20 mg. 180 Tablet 3 09/08/2022 Active Ipratropium-Albutero l 0.5-2.5 (3) MG/3ML Inhalation Solution (Duoneb) Inhale 3 mL via nebulizer in the morning and 3 mL at noon and 3 mL in the evening and 3 mL before bedtime. 3600 mL 11 09/09/2022 Active Additional Information Patient taking differently:3 mL [id number] PRN, Dyspnea, Reported on 12/21/2022 Mycophenolate Mofetil [...] EVERY DAY IN THE MORNING 90 Tablet 11/23/2022 Active Tadalafil (PAH) 20 MG Oral [...] OR EYES. 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 dsDNA borderline. [place] unlikely SLE. o 2012: Seen again by Rheum- Dr. Jung- photosensitive rash and raynauds. Borderline dsDNA. [place] likely SLE, though possible AIH could explain (+) MARY. HCQ discussed but wanted to avoid by GI. o [id number]: multiple hospitalizations for ascites; returned to Rheum [...] as of this encounter (statuses as of 02/12/2023) Resolved Problems Problem Noted Date Diagnosed Date [...] as of this encounter (statuses as of 02/12/2023) Immunizations Name Administration Dates Next Due HEP [...] Telephone Encounter - Mary Topete RPh - 02/12/2023 7:44 AM ESTRefused Prescriptions: Disp Refills traMADol HCl 50 MG Oral Tablet (Ultram) 240 Ta*0 Sig: TAKE 2 TABLETS BY MOUTH EVERY 6 HOURS NEEDED FOR PAIN, MODERATE.*-*12-28Refused By: MARY TOPETEfor Refusal: Duplicate Request documented in this encounter Plan of Treatment Upcoming Encounters Date Type Department Care Team (Late st Contact Info) Description 02/22/2023 4:00 PM EST Office Visit [address] [address] Reggie Eddy, [address] [place] [address] 03/16/2023 10:40 AM EST Office Visit Pulmonary Medicine, [place] [address] [place] [address] Twin Hayden MD [address] [place] [address] 07/03/2023 8:15 AM EDT Telemedicine [facility] [place], [address] [phone] Fran French DO [address] [place], [place] [phone] Scheduled Procedures Name Priority Associated Diagnoses Date/Ti [...] Depression Screening 09/07/2022 09/07/2021 HbA1c 09/20/2022 09/20/2021, 08/08/2019, 02/28/2019, Additional history exists Influenza Vaccine (FLU shot) (#1) 2022 Mammogram 06/21/2023 06/20/2022, 04/11, 04/30/2019, Additional history exists O2 ASSESSMENT COMPLETED IN PAST YEAR FOR COPD 01/03/2024 01/02/2023 TSH 01/11/2024 01/10/2023, 06/2022, 12/21/2022, Additional history exists Lipid Panel [...] this encounter Medical Devices Implanted Type Area Systems Mgr Device Identifier Shelf Expiration Date Model / Serial / Lot Lens 22.0 Sa60at - [id number] Implanted:Qty: 1 on 10/15/2012 at OR [facility] Left: Eye [employer] 10/07/2016 SA60AT / [id number] / Lens 22.0 60 - [id number] Implanted:Qty: 1 on 11/29/2012 at OR [facility] [place] Right: Eye [employer] 03/31/2017 SA60AT / [id number] / Duraclip 11mm Repositionable - [id number] Implanted:Qty: 1 on 05/11/2022 by Jeffrey Weber MD at ENDOSCOPY [facility] [place] [employer] [id number] 01/29/2024 [id number] / / [id number] documented as of this encounter Visit [...] the patient have Health Care Power of Ball Mill Mixer? No Care Teams Yarn Skeins Examiner Relationship Specialty Start Date End Date Reggie dEdy DO [address] [place] [phone] PCP - General Internal Medicine 03/08/22 documented as of this encounter
--- OUTSIDE RECORDS SUMMARY | 2023-03-19 22:27 | External Medical Summary | Summary of Care ---
Author Name Unknown Organization [facility] Address [address] [place] [address] Phone [phone] Care Team Providers Care Presidential Support Specialist Name Role Phone Reggie Eddy DO Primary Care Provid er Reason for Visit * Reason Comments Outpatient Testing Encounter Details Date Type Department Care Team Description 01/12/2023 Laboratory [facility] [address] [address] Arrived Allergies Active Allergy Reactions Severity Noted Date Comments Hydromorphone Hcl Itching Medium 11/09/2015 Environmental Low 05/04/2010 Pollen -asthmatic attacks documented as of this encounter (statuses as of 01/12/2023) Medications Medication Sig Dispensed Refills Start Date [...] the morning. 60 Each 11 09/08/2022 Active Ambrisentan 10 MG Oral Tablet (Letairis)Indication s:PAH (pulmonary artery hypertension) (HCC) TAKE 1 TABLET BY MOUTH 1 TIME A DAY. DO NOT HANDLE IF . DO NOT SPLIT, CRUSH, OR CHEW. AVOID INHALATION AND CONTACT WITH SKIN OR EYES. 30 Tablet 5 09/08/2022 Active Torsemide 20 MG Oral Tablet [...] Active Additional Information Patient taking differently:3 mL [id number] PRN, Dyspnea, Reported on 12/21/2022 Mycophenolate Mofetil [...] BY MOUTH EVERY DAY, Reported on 12/21/2022 traZODone HCl 50 MG Oral Tablet (Desyrel)Indications :Primary insomnia Take 1 Tablet by mouth at bedtime. 90 Tablet 1 09/30/2022 Active Levothyroxine Sodium 150 MCG Oral Tablet (Levoxyl)Indications [...] before bedtime. 60 Capsule 0 01/03/2023 Active documented as of this encounter (statuses as of 01/12/2023) Active Problems Problem Noted Date Hematochezia 01/02/2023 Arteriovenous malformation (AVM) 023 Lactic acidosis 12/31/2022 Iron deficiency anemia due to chronic bl ood loss 12/22/2022 Shock 12/21/2022 Pleural effusion 12/21/2022 Acute pulmonary edema 12/21/2022 Anemia 12/21/2022 Pain of upper abdomen 12/21/2022 Immunodeficiency 12/20/2022 Other cirrhosis of liver 03/16/2022 Raynaud's disease without gangrene 08/26 Ovarian cyst, right 03/19/2021 Ovarian cyst, left 01/26/2021 Other specified disorders of adrenal gla nd 08/24/2020 Pulmonary hypertension 06/30/2020 COPD, group C, by GOLD 2017 classificati on 06/15/2020 Overview: Per COPD GOLD Classification Other emphysema 06/10/2020 Other ascites 12/23/2019 Portal hypertension 12/23/2019 Spinal stenosis of lumbar region without neurogenic claudication 08/15/2019 Pain aggravated by changing postions 10/2019 Prediabetes 03/18/2019 Overview: Per Prediabetes protocol Influenza vaccination declined 9 Systemic lupus erythematosus 07/27/2017 Overview: Initial sx & Dx: sicca, Raynauds, rash o 1995: joint pain, weight loss, arm paresthesias, racing heart, (+) MARY and thyroid abn - saw Dr. 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 dsDNA borderline. [place] unlikely SLE. o 2012: Seen again by Rheum- Dr. Jung- photosensitive rash and raynauds. Borderline dsDNA. [place] likely SLE, though possible AIH could explain (+) MARY. HCQ discussed but wanted to avoid by GI. o [id number]: multiple hospitalizations for ascites; returned to Rheum 2019- no objective synovitis Esophageal varices in cirrhosis 07/28/19 18 MEDICATION USE AGREEMENT 06/13/2017 Disordered sleep 12/14/2016 Controlled substance agreement signed Acute on chronic respiratory failure wit h hypoxia 06/12/2015 Bright red blood per rectum 12/20/2012 Overview: colonoscopy Normocytic anemia 12/19/2012 PPD positive, treated 12/17/2012 Serologic abnormality 07/05/2010 Esophageal reflux 05/19/2010 Postoperative hypothyroidism 01/23/2002 HISTORY OF TOBACCO USE 01/23/2002 Autoimmune hepatitis documented as of this encounter (statuses as of 01/12/2023) Resolved Problems Problem Noted Date Resolved Date Rhinovirus infection 06/08/2020 03/16/2022 Oliguria 12/23/2019 12/26/2019 UTI (urinary tract infection) 12/07/2019 Delirium 12/07/2019 12/08/2019 Hypophosphatemia 12/07/2019 03/16/2022 Hypokalemia 12/06/2019 12/08/2019 Hypocalcemia 12/06/2019 03/16/2022 Compensated metabolic alkalosis 12/06/2019 12/08/2019 Acute cystitis without hematuria 12/06/2019 12/08/2019 Numbness and tingling of both legs 08/15/2019 12/08/2019 Numbness and tingling in both hands 08/15/2019 12/08/2019 Influenza A 06/17/2015 05/31/2018 Rotator cuff syndrome 08/07/2014 05/31/2018 ADVANCE DIRECTIVE INFORMATION 05/06/2013 Overview: No, Advance Directive brochure given to patient. 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 Never true 10/03/2022 Within the past 12 months, t he food you bought just didn't last and you didn't have money to get more. Never true 10/03/2022 Sex Assigned at Date Recorded Female 09/13/2018 9:34 AM E DT Job Start Date Occupation Industry Not on [...] Plan of Treatment Upcoming Encounters Date Type Specialty Care Team Description 01/23/2023 Appointment Radiology 01/23/2023 Nurse Only Meghna Tabares, Nurse g Lock [address] [place] [address] 02/14/2023 Office Visit Family Medicine Reggie Eddy, [address] [place] [address] 03/16/2023 Office Visit Pulmonary Twin Hayden MD [address] [place] [address] 07/03/2023 Telemedicine Ophthalmology Fran French, DO [address] [place] [address] Scheduled Procedures Name Priority Associated Diagnoses Date/Ti [...] this encounter Medical Devices Implanted Type Area Server Developer Device Identifier Shelf Expiration Date Model / Serial / Lot Lens 22.0 Sa60at - [id number] Implanted:Qty: 1 on 10/15/2012 at OR [facility] Left: Eye [employer] 10/07/2016 SA60AT / [id number] / Lens 22.0 Sa60at - [id number] Implanted:Qty: 1 on 11/29/2012 [place] [facility] [place] Eye [employer] 03/31/2017 SA60AT / [id number] / Duraclip 11mm Repositionable - [id number] Implanted:Qty: 1 on 05/11/2022 by Jeffrey Weber MD [place] [facility] [employer] [id number] 01/29/2024 [id number] / / [id number] documented as of this encounter Advance [...] the patient have Health Care Power of Cloud Automation Tester? No Care Teams Presidential Support Specialist Relationship Specialty Start Date End Date Reggie Eddy, DO [address] [place], [place] [phone] PCP - General Internal Medicine 03/08/22 documented as of this encounter
--- OUTSIDE RECORDS SUMMARY | 2023-03-19 22:27 | External Medical Summary | Summary of Care ---
Author Name Unknown Organization [facility] Address [address] [place] [address] Phone [phone] Care Team Providers Care Market News Reporter Name Role Phone Reggie Eddy DO Primary Care Provid er Reason for Referral * Precert (Within 10 days (routine)) - Closed Specialty Diagnoses / Procedures Referred By Contac t Referred To Contact Radiology Diagnoses Pain around left eye Procedures MRI ORBITS WITH/WITHOUT CONTRAST Fran French DO [address] [place] [address] Referral ID Status Reason Start Date Expiration Date V isits Requested Visits Authorized [id number] Closed Precert 01/17/2023 07/16/2023 999 1 Reason for Visit * Precert (Within 10 days (routine)) - Closed Specialty Diagnoses / Procedures Referred By Contac t Referred To Contact Radiology Diagnoses Pain around left eye Procedures MRI ORBITS WITH/WITHOUT CONTRAST Frna French DO [address] [place] [address] Referral ID Status Reason Start Date Expiration Date V isits Requested Visits Authorized [id number] Closed Precert 01/17/2023 07/16/2023 999 1 Encounter Details Date Type Department Care Team Description 01/23/2023 Hospital Encounter Radiology, [facility] [address] [place] [address] Arrived Allergies Active Allergy Reactions Severity Noted Date Comments Hydromorphone Hcl Itching Medium 11/09/2015 Environmental Low 05/04/2010 Pollen -asthmatic attacks documented as of this encounter (statuses as of 01/24/2023) Medications Medication Sig Dispensed Refills Start Date [...] and 3 mL before bedtime. 3600 mL 09/09/2022 Active Additional Information Patient taking differently:3 mL [id number] PRN, Dyspnea, Reported on 12/21/2022 Mycophenolate Mofetil [...] as of this encounter (statuses as of 01/24/2023) Active Problems Problem Noted Date Hematochezia 01/02/2023 [...] o Lost to follow up- moved to [place] o 2009: Dx with AIH: incomplete cirrhosis found incidentally at time of cholecystectomy when liver bx obtained; grade 1 varices; MARY , ASMA positive - Tx pred initially then Imuran 08/19 then MMF in 08/20 when she developed ascites o 2010: Rheum exam- not typical SLE sx- negative/normal C3/C4, SSA/SSB, centromere, 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 dsDNA borderline. [place] unlikely SLE. o 2012: Seen again by Rheum- Dr. Jung- photosensitive rash and raynauds. Borderline dsDNA. [place] likely SLE, though possible AIH could explain (+) MARY. HCQ discussed but wanted to avoid by GI. o [id number]: multiple hospitalizations for ascites; returned to Rheum [...] as of this encounter (statuses as of 01/24/2023) Resolved Problems Problem Noted Date Resolved Date [...] as of this encounter (statuses as of 01/24/2023) Immunizations Name Administration Dates Next Due HEP [...] Encounters Date Type Specialty Care Team Description 02/14/2023 Office Visit Family Medicine Reggie Eddy, DO [address] [place] [address] 03/16/2023 Office Visit Pulmonary Twin Hayden MD [address] [place] [address] 07/03/2023 Telemedicine Ophthalmology Fran French DO [address] [place] [address] Pending Results Name Type Priority Associated Diagnoses Date /Time MRI ORBITS WITH/WITHOUT CONTRAST Medical Imaging Routine Pain around left eye 01/23/2023 12:55 PM EDT Scheduled Orders Name Type Priority Associated Diagnoses Orde r Schedule MRI ORBITS WITH/WITHOUT CONTRAST Medical Imaging Routine Pain around left eye 1 Occurrences starting 01/23/2023 until 01/23/2023 Scheduled Procedures Name Priority Associated Diagnoses Date/Ti [...] this encounter Medical Devices Implanted Type Area Value Advisor Device Identifier Shelf Expiration Date Model / Serial / Lot Lens 22.0 Sa60at - [id number] Implanted:Qty: 1 on 10/15/2012 at OR [facility] Left: Eye [employer] 10/07/2016 SA60AT / [id number] / Lens 22.0 Sa60at - [id number] Implanted:Qty: 1 on 11/29/2012 at OR [facility] [place] Right: Eye [employer] 03/31/2017 SA60AT / [id number] / Duraclip 11mm Repositionable - [id number] Implanted:Qty: 1 on 05/11/2022 by Jeffrey Weber MD at ENDOSCOPY [facility] [place] [employer] [id number] 01/29/2024 [id number] / / [id number] documented as of this encounter Visit Diagnoses Diagnosis Pain around left eye documented in this encounter Administered Medications Inactive Administered Medications - up to 3 most recent administrations Medication Order MAR Action Action Date Dose Rate Site gadobutrol (Gadavist) inj 4.7 mL 4.7 mL (rounded from 4.74 mL = 0.1 mL/kg 47.4 kg), Intravenous, ONCE, On 01/23/23 at 1258, For 1 dose, Radiology Medication Routing (Non-IR) Given 01/23/2023 12:56 PM EDT 5 mL documented in this encounter Advance Directives Latest [...] the patient have Health Care Power of Sequins Slinger? No Care Teams Market News Reporter Relationship Specialty Start Date End Date Reggie Eddy, [place] [address] PCP - General Internal Medicine 03/08/22 documented as of this encounter
--- OUTSIDE RECORDS SUMMARY | 2023-03-19 22:27 | External Medical Summary | Summary of Care ---
Author Name Unknown Organization [facility] Address [address] [place] [address] Phone [phone] Care Team Providers Care Detail Maker And Fitter Name Role Phone Reggie Eddy DO Primary Care Provid er Reason for Visit * Reason Comments Blood Pressure Check BP Check Encounter Details Date Type Department Care Team Description 01/23/2023 Nurse Only Ancillary [address] [address] Haveconchita, Nurse [facility] [address] [address] Blood Pressure Check (BP Check) Allergies Active Allergy Reactions Severity Noted Date Comments Hydromorphone Hcl Itching Medium 11/09/2015 Environmental Low 05/04/2010 Pollen -asthmatic attacks documented as of this encounter (statuses as of 01/23/2023) Medications Medication Sig Dispensed Refills Start Date [...] Active Additional Information Patient taking differently:3 mL HknmahajdF7O PRN, Dyspnea, Reported on 12/21/2022 Mycophenolate Mofetil [...] as of this encounter (statuses as of 01/23/2023) Active Problems Problem Noted Date Hematochezia 01/02/2023 [...] o Lost to follow up- moved to [place] o 2009: Dx with AIH: incomplete cirrhosis found incidentally at time of cholecystectomy when liver bx obtained; grade 1 varices; MARY , ASMA positive - Tx pred initially then Imuran 08/19 then MMF in 08/20 when she developed ascites o 2010: Rheum exam- not typical SLE sx- negative/normal C3/C4, SSA/SSB, centromere, 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 dsDNA borderline. [place] unlikely SLE. o 2012: Seen again by Rheum- Dr. Jung- photosensitive rash and raynauds. Borderline dsDNA. [place] likely SLE, though possible AIH could explain (+) MARY. HCQ discussed but wanted to avoid by GI. o [id number]: multiple hospitalizations for ascites; returned to Rheum 2019- no objective synovitis Esophageal varices in cirrhosis 07/28/19 MEDICATION USE AGREEMENT 06/13/2017 Disordered sleep 12/14/2016 Controlled substance agreement signed Acute on chronic respiratory failure wit h hypoxia 06/12/2015 Bright red blood per rectum 12/20/2012 Overview: colonoscopy Normocytic anemia 12/19/2012 PPD positive, treated 12/17/2012 Serologic abnormality 07/05/2010 Esophageal reflux 05/19/2010 Postoperative hypothyroidism 01/23/2002 HISTORY OF TOBACCO USE 01/23/2002 Autoimmune hepatitis documented as of this encounter (statuses as of 01/23/2023) Resolved Problems Problem Noted Date Resolved Date [...] as of this encounter (statuses as of 01/23/2023) Immunizations Name Administration Dates Next Due HEP [...] Sign Reading Time Taken Comments Blood Pressure 102/62 01/23/2023 2:19 PM EDT Pulse 65 01/23/2023 2:19 PM EDT Temperature - - Respiratory Rate - - Oxygen Saturation - - Inhaled Oxygen Concentration - - Weight - - Height - - Body Mass Index - - documented in this encounter Functional Status Functional [...] No 12/31/2022 documented as of this encounter Nursing Notes * Kirti Anthony LPN - 01/23/2023 2:22 PM EDT The patient has been properly identified by confirmation of name and date of . Chief Complaint Patient presents with Blood Pressure Check BP Check Blood pressure: 102/62 Pulse: 65 Reconciliation of medications performed? Yes Did you take your medications today? Yes Any new problems or side effects of medications? No Any home blood pressure readings to report? No Pharmacy verified? Yes Phone number to be reached verified? Yes Patient would like a prescription for a at home blood pressure cuff to take her own readings and keep track of lows. documented in this encounter Plan of Treatment Upcoming Encounters Date Type Specialty Care Team Description 02/14/2023 Office Visit Family Medicine Reggie Eddy DO [address] [place] [address] 03/16/2023 Office Visit Pulmonary Twin Hayden MD [address] [place], [place] [phone] 07/03/2023 Telemedicine Ophthalmology Fran French, DO [address] [place] [address] Scheduled Procedures Name Priority Associated Diagnoses Date/Ti [...] FOR COPD 01/03/2024 01/02/2023 TSH 01/11/2024 01/10/2023, 1006/2022, 12/21/2022, Additional history exists Lipid Panel 02/29/2024 [...] this encounter Medical Devices Implanted Type Area Fisher Dip Net Device Identifier Shelf Expiration Date Model / Serial / Lot Lens 22.0 Sa60at - [id number] Implanted:Qty: 1 on 10/15/2012 at OR [facility] Left: Eye [employer] 10/07/2016 SA60AT / [id number] / Lens 22.0 Sa60at - [id number] Implanted:Qty: 1 on 11/29/2012 at OR [facility] [place] Right: Eye [employer] 03/31/2017 SA60AT / [id number] / Duraclip 11mm Repositionable - [id number] Implanted:Qty: 1 on 05/11/2022 by Jeffrey Weber MD at ENDOSCOPY [facility] [place] [employer] [id number] 01/29/2024 [id number] / / [id number] documented as of this encounter Advance [...] the patient have Health Care Power of Mail Reader? No Care Teams Detail Maker And Fitter Relationship Specialty Start Date End Date Reggie Eddy, [address] [place] [id number] PCP - General Internal Medicine 03/08/22 documented as of this encounter
--- OUTSIDE RECORDS SUMMARY | 2023-03-19 22:27 | External Medical Summary | Summary of Care ---
Author Name Unknown Organization [facility] Address [address] [place] [address] Phone [phone] Care Team Providers Care Material Assembler Name Role Phone Reggie Eddy DO Primary Care Provid er Reason for Visit * Reason Onset Date Comments Medication Refill 02/09/2023 Encounter Details Date Type Department Care Team (Late st Contact Info) Description 02/09/2023 Refill Pulmonary Medicine, [place] [address] [place] [address] Katy Martínez CRNP [address] [place] [address] PAH (pulmonary artery hypertension) ([facility]ER[facility]) Allergies Active Allergy Reactions Criticality Noted Date [...] Active Additional Information Patient taking differently:3 mL [id number] PRN, Dyspnea, Reported on 12/21/2022 Mycophenolate Mofetil [...] 12/21/2022 traZODone HCl 50 MG Oral Tablet (Desyrel)Indication s:Primary insomnia Take 1 Tablet by mouth at bedtime. 90 Tablet 1 09/30/2022 Active Levothyroxine Sodium 150 MCG Oral Tablet (Levoxyl)Indication [...] before bedtime. 60 Capsule 0 01/03/2023 Active Ambrisentan 10 MG Oral Tablet (Letairis)Indicatio ns:PAH (pulmonary artery hypertension) (HCC) TAKE 1 TABLET BY MOUTH 1 TIME A DAY. DO NOT HANDLE IF . DO NOT SPLIT, CRUSH, OR CHEW. AVOID INHALATION AND CONTACT WITH SKIN OR EYES. 30 Tablet 5 02/10/2023 Active Ambrisentan 10 MG Oral Tablet (Letairis)Indicatio ns:PAH (pulmonary artery hypertension) (HCC) TAKE 1 TABLET BY MOUTH 1 TIME A DAY. DO NOT HANDLE IF . DO NOT SPLIT, CRUSH, OR CHEW. AVOID INHALATION AND CONTACT WITH SKIN OR EYES. 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 dsDNA borderline. [place] unlikely SLE. o 2012: Seen again by Rheum- Dr. Jung- photosensitive rash and raynauds. Borderline dsDNA. [place] likely SLE, though possible AIH could explain (+) MARY. HCQ discussed but wanted to avoid by GI. o [phone]: multiple hospitalizations for ascites; returned to Rheum [...] encounter Miscellaneous Notes * Telephone Encounter - Christopher Brown MD - 02/10/2023 1:34 PM EDTSigned Prescriptions: Disp Refills Ambrisentan 10 MG Oral Tablet (Letairis) 30 Tab*5 Sig: TAKE 1 TABLET BY MOUTH 1 TIME A DAY. DO NOT HANDLE IF . DO NOT SPLIT, CRUSH, OR CHEW. AVOID INHALATION AND CONTACT WITH SKIN OR EYES. Authorizing Provider: CHRISTOPHER BROWN * Telephone Encounter - Torie Hutchison - 02/10/2023 7:31 AM EDTPending Prescriptions: Disp Refills Ambrisentan 10 MG Oral Tablet (Letairis) 30 Tab*5 Sig: TAKE 1 TABLET BY MOUTH 1 TIME A DAY. DO NOT HANDLE IF . DO NOT SPLIT, CRUSH, OR CHEW. AVOID INHALATION AND CONTACT WITH SKIN OR EYES. * Telephone Encounter - Torie Hutchison - 02/10/2023 7:31 AM EDT Pending Prescriptions: Disp Refills Ambrisentan 10 MG Oral Tablet (Letairis) 30 Tab*5 Sig: TAKE 1 TABLET BY MOUTH 1 TIME A DAY. DO NOT HANDLE IF . DO NOT SPLIT, CRUSH, OR CHEW. AVOID INHALATION AND CONTACT WITH SKIN OR EYES. Most Recent Office Visit Date:05/20/2022 (in office), 03/21/2022 (telemedicine) Next Scheduled Office Visit Date:03/16/2023 If no future appointments scheduled, and last appointment is greater than a year ago, please schedule patient for a follow-up appointment Last date the medication was ordered: [id number] Pharmacy: [address] Please review and sign at your discretion. documented in this encounter Plan of Treatment Upcoming Encounters Date Type Department Care Team ([facility] st Contact Info) Description 02/22/2023 4:00 PM EST Office Visit [address] [phone] Reggie Eddy, [address] [address] 03/16/2023 10:40 AM EST Office Visit Pulmonary Medicine, [place] [address] [place] [address] Twin Hayden MD [address] [place] [address] 07/03/2023 8:15 AM EDT Telemedicine [facility], [address] [address] Fran French DO [address], [place] [phone] Scheduled Procedures Name Priority Associated Diagnoses Date/Ti [...] this encounter Medical Devices Implanted Type Area Adult Education Instructor Device Identifier Shelf Expiration Date Model / Serial / Lot Lens 22.0 Sa60at - [id number] Implanted:Qty: 1 on 10/15/2012 at OR [facility] Left: Eye [employer] 10/07/2016 SA60AT / [id number] / Lens 22.0 Sa60at - [id number] Implanted:Qty: 1 on 11/29/2012 at OR [facility] Right: Eye [employer] 03/31/2017 SA60AT / [id number] / Duraclip 11mm Repositionable - [id number] Implanted:Qty: 1 on 05/11/2022 by Jeffrey Weber MD at ENDOSCOPY [facility] [employer] [id number] 01/29/2024 [id number] / / [id number] documented as of this encounter Visit Diagnoses Diagnosis PAH (pulmonary artery hypertension) (HCC) Other chronic pulmonary heart diseases documented in this encounter Advance Directives Latest [...] the patient have Health Care Power of Security Services Manager? No Care Teams Material Assembler Relationship Specialty Start Date End Date Reggie Eddy DO [address] [place] [phone] PCP - General Internal Medicine 03/08/22 documented as of this encounter
--- OUTSIDE RECORDS SUMMARY | 2023-03-19 22:27 | External Medical Summary | Summary of Care ---
Author Name Unknown Organization [facility] Address [address] [place] [address] Phone [phone] Care Team Providers Care Supervisor Cutting And Boning Name Role Phone Reggie Eddy DO Primary Care Provid er Reason for Visit * Reason Onset Date Comments Encounter Created in Error 02/17/2023 Encounter Details Date Type Department Care Team (Late st Contact Info) Description 02/17/2023 Orders Only Outcomes Research Department [address] [place] [address] Pema Sidhu CHRA Encounter created in error Allergies Active Allergy Reactions Criticality Noted Date Comments Hydromorphone Hcl Itching Medium 11/09/2015 Environmental Low 05/04/2010 Pollen -asthmatic attacks documented as of this encounter (statuses as of 02/17/2023) Medications Medication Sig Dispensed Refills Start Date [...] Active Additional Information Patient taking differently:3 mL [id number] PRN, Dyspnea, Reported on 12/21/2022 Mycophenolate Mofetil [...] as of this encounter (statuses as of 02/17/2023) Active Problems Problem Noted Date Diagnosed Date [...] o Lost to follow up- moved to [place] o 2009: Dx with AIH: incomplete cirrhosis found incidentally at time of cholecystectomy when liver bx obtained; grade 1 varices; MARY , ASMA positive - Tx pred initially then Imuran 08/19 then MMF in 08/20 when she developed ascites o 2010: Rheum exam- not typical SLE sx- negative/normal C3/C4, SSA/SSB, centromere, MECHANIC RECOVERY/Sm, ESR,CRP. dsDNA borderline. [place] unlikely SLE. o 2012: Seen again by Rheum- Dr. Jung- photosensitive rash and raynauds. Borderline dsDNA. [place] likely SLE, though possible AIH could explain (+) MARY. HCQ discussed but wanted to avoid by GI. o [phone]: multiple hospitalizations for ascites; returned to Rheum [...] as of this encounter (statuses as of 02/17/2023) Resolved Problems Problem Noted Date Diagnosed Date [...] as of this encounter (statuses as of 02/17/2023) Immunizations Name Administration Dates Next Due HEP [...] as of this encounter Progress Notes * Pema Sidhu CHRA - 02/17/2023 3:28 PM EST This encounter was created in error. 02/17/2023, 3:28 PMPema CHRA documented in this encounter Plan of Treatment Upcoming Encounters Date Type Department Care Team (Late st Contact Info) Description 02/22/2023 4:00 PM EST Office Visit [address] [phone] Reggie Eddy, [address] [address] 03/16/2023 10:40 AM EST Office Visit Pulmonary Medicine, [place] [address] [place] [address] Twin Hayden MD [address] [place] [address] 07/03/2023 8:15 AM EDT Telemedicine [facility], [address] [address] Fran French, [address], [place] [phone] Scheduled Procedures Name Priority Associated Diagnoses Date/Ti [...] this encounter Medical Devices Implanted Type Area Ethanol Operator Device Identifier Shelf Expiration Date Model / Serial / Lot Lens 22.0 Sa60at - [id number] Implanted:Qty: 1 on 10/15/2012 at OR [facility] Left: Eye [employer] 10/07/2016 SA60AT / [id number] / Lens 22.0 Sa60at - [id number] Implanted:Qty: 1 on 11/29/2012 at OR [facility] Right: Eye [employer] 03/31/2017 SA60AT / [id number] / Duraclip 11mm Repositionable - [id number] Implanted:Qty: 1 on 05/11/2022 by Jeffrey Weber MD at ENDOSCOPY [facility] [employer] [id number] 01/29/2024 [id number] / / [id number] documented as of this encounter Visit Diagnoses Diagnosis Encounter Created In Error- Primary documented in this encounter Advance Directives Latest [...] the patient have Health Care Power of Film Sorter? No Care Teams Supervisor Cutting And Boning Relationship Specialty Start Date End Date Reggie Eddy DO [address] [place] [phone] PCP - General Internal Medicine 03/08/22 documented as of this encounter
--- OUTSIDE RECORDS SUMMARY | 2023-03-19 22:27 | External Medical Summary | Summary of Care ---
Author Name Unknown Organization [facility] Address [address] [place] [address] Phone [phone] Care Team Providers Care Bagel Maker Name Role Phone Reggie Eddy DO Primary Care Provid er Encounter Details Date Type Department Care Team Description 01/17/2023 Telemedicine Gastroenterology, [place] [address] [place] [address] Jett Bangura PA-C [address] [place] [address] AVM (arteriovenous malformation) of colon*; Autoimmune hepatitis (HCC); Alcoholic cirrhosis of liver without ascites (HCC) Allergies Active Allergy Reactions Severity Noted Date Comments Hydromorphone Hcl Itching Medium 11/09/2015 Environmental Low 05/04/2010 Pollen -asthmatic attacks documented as of this encounter (statuses as of 01/26/2023) Medications Medication Sig Dispensed Refills Start Date [...] Active Additional Information Patient taking differently:3 mL [id number] PRN, Dyspnea, Reported on 12/21/2022 Mycophenolate Mofetil [...] as of this encounter (statuses as of 01/26/2023) Active Problems Problem Noted Date Hematochezia 01/02/2023 [...] o Lost to follow up- moved to [place] o 2009: Dx with AIH: incomplete cirrhosis found incidentally at time of cholecystectomy when liver bx obtained; grade 1 varices; MARY , ASMA positive - Tx pred initially then Imuran 08/19 then MMF in 08/20 when she developed ascites o 2010: Rheum exam- not typical SLE sx- negative/normal C3/C4, SSA/SSB, centromere, 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 dsDNA borderline. Leonore unlikely SLE. o 2012: Seen again by Rheum- Dr. Jung- photosensitive rash and raynauds. Borderline dsDNA. Leonore likely SLE, though possible AIH could explain (+) MARY. HCQ discussed but wanted to avoid by GI. o [phone]: multiple hospitalizations for ascites; returned to Rheum [...] as of this encounter (statuses as of 01/26/2023) Resolved Problems Problem Noted Date Resolved Date [...] as of this encounter (statuses as of 01/26/2023) Immunizations Name Administration Dates Next Due HEP [...] as of this encounter Progress Notes * Jett Bangura PA-C - 01/17/2023 3:33 PM EDT Patient location: HOME. I was in a hospital or clinic location. After connecting through televideo,patient was verified with two unique identifiers. Patient (or authorized legal automobile sales representative) was then informed that this was a Telemedicine visit and being conducted confidentially over secure lines. Methods to assure confidentiality were taken. Patient acknowledged consent and understanding of pr ivacy and security of the Telemedicine visit. The patient agreed to participate. Subjective: Jazmín Blevins is a 57 year old female. No chief complaint on file. HPI: 57 year old female presents for hospital discharge followup Last seen in hepatology in April by Dr Amrando for cirrhosis and autoimmune hepatitis Admitted to [facility] 12/21/22 - 12/30/22 as transfer from [facility] due to shock, NAZARIO and acute on chronic anemia She was hypotensive with Hgb 5.4, Cr 2.6 with hypokalemia and hyponatremia CTA abd/pelvis unrevealing for acute GI bleeding Treated with IV antibiotics, IV fluids, and was transfused EGD done 12/21/22 showed no etiology for bleeding Colonoscopy done 12/23/22 showed multiple non-bleeding colonic angiodysplastic lesions, treated withAPC Admitted again to [facility] 12/31/22 - 01/03/23 for rectal bleeding Underwent colonoscopy 01/02/23 non-bleeding angiodysplastic lesions which were treated with APC. Hgb remained stable Underwent VCE which was normal It was felt her bleeding was secondary to the AVMs No abd pain, hematochezia, melena No dysphagia, heartburn, n/v Bowel movements are daily She was more tired and lightheaded prior to ER visit She was never SOB Currently no CP, SOB, dizziness, fatigue, syncope Her last Hgb was 11.4 on 01/10/23 No ETOH No tobacco No NSAIDs PMH/PSH/SHx/FHx/Meds/Allergies reviewed with pt Chart reviewed MELD 3.0: 9 at 01/02/2023 9:42 AM Calculated from: Serum Creatinine: 0.7 mg/dL (Using min of 1 mg/dL) at 01/02/2023 9:42 AM Serum Sodium: 139 mmol/L (Using max of 137 mmol/L) at 01/02/2023 9:42 AM Total Bilirubin: 0.5 mg/dL (Using min of 1 mg/dL) at 12/31/2022 3:10 PM Serum Albumin: 2.9 g/dL at 12/31/2022 3:10 PM INR(ratio): 1.1 at 12/31/2022 3:10 PM Age at listing (hypothetical): 57 years Sex: Female at 01/02/2023 9:42 AM VCE 01/02/23 No source of bleeding identified Colonoscopy 01/02/23 - The examined portion of the ileum was normal. - A few non-bleeding colonic angiodysplastic lesions. Treated with argon plasma coagulation (APC). - A single non-bleeding colonic angiodysplastic lesion. Treated with argon plasma coagulation (APC). - Internal hemorrhoids. - No specimens collected. Colonoscopy 12/23/22 - Multiple non-bleeding colonic angiodysplastic lesions. Treated with argon plasma coagulation (APC). - One 3 mm polyp in the cecum, removed with a cold biopsy forceps. Resected and retrieved. - Previous stent in the transverse colon. - Erythematous mucosa in the ascending colon. - Rectal varices. - Non-bleeding internal hemorrhoids. - Hemorrhoids found on perianal exam. EGD 12/21/22 - Esophageal plaques were found, consistent with candidiasis. - LA Grade A reflux esophagitis with no bleeding. - 3 cm hiatal hernia. - Z-line regular, 36 cm from the incisors. - Gastroesophageal flap valve classified as Hill Grade IV (no fold, wide open lumen, hiatal hernia present). - Small (< 5 mm) esophageal varices. - Normal stomach. - Normal examined duodenum. - No specimens collected. - No obvious cause for patient's severe acute anemia found on this endoscopy. CTA ABD/PELVIS 12/31/2022 FINDINGS: Lungs: Nodular density at the left lung base with cluster of nodules measuring approximately 4-6 mm in size. Finding best identified on image 28 series 30. 1.3 x 1.1 cm nodular density at the left lung base favored to represent resolving atelectasis. Aorta: Calcific atherosclerotic disease is present in the abdominal aorta. Celiac trunk and mesenteric arteries: No occlusion or significant stenosis. Renal arteries: No occlusion or significant stenosis. Right iliac arteries: No occlusion or significant stenosis. Left iliac arteries: No occlusion or significant stenosis. Veins: There is a recanalized umbilical vein with varices identified in the anterior abdomen. The portal vein is patent. Prominent left gonadal vein with venous varicosities in the left lower pelvis. Esophageal and gastric varices are present. Abnormal enhancement within the wall of the rectum consistent with varices. Liver: The liver is nodular in contour, suggesting cirrhosis. Gallbladder and bile ducts: There has been a cholecystectomy. Pancreas: Unremarkable. No mass. No ductal dilation. Spleen: Unremarkable. No splenomegaly. Adrenal glands: Unremarkable. No mass. Kidneys and ureters: Right kidney with normal enhancement and anterior rotation. Stomach and bowel: Small bowel appears normal. Appendix: No evidence of appendicitis. Intraperitoneal space: Unremarkable. No free air. No significant fluid collection. Lymph nodes: Unremarkable. No enlarged lymph nodes. Urinary bladder: Unremarkable. No mass. Reproductive: Unremarkable as visualized. Bones/joints: Degenerative disc and facet changes of the spine without acute osseous abnormality. Soft tissues: Possible hemorrhoids identified in the lower rectum. IMPRESSION: 1. Suspected resolving atelectasis or pneumonia at the left lung base. 2. The liver is nodular in contour, suggesting cirrhosis. 3. Esophageal, gastric and rectal varices are present and represent potential sites of hemorrhage. No findings of active GI hemorrhage. Findings are likely related to cirrhosis and portal hypertension. 4. Prominent left gonadal vein with venous varicosities in the left lower pelvis. Findings may be seen in the setting of pelvic congestion syndrome. PHM: Patient Active Problem List Diagnosis Code Postoperative hypothyroidism E89.0 HISTORY OF TOBACCO USE Z87.891 Esophageal reflux K21.9 Serologic abnormality R89.4 Autoimmune hepatitis (HCC) K75.4 PPD positive, treated R76.11 Normocytic anemia D64.9 Bright red blood per rectum K62.5 Acute on chronic respiratory failure with hypoxia (HCC) J96.21 Controlled substance agreement signed Z79.899 Disordered sleep G47.9 MEDICATION USE AGREEMENT [id number] Systemic lupus erythematosus (HCC) M32.9 Esophageal varices [...] E87.20 Hematochezia K92.1 Arteriovenous malformation (AVM) Q27.30 Past Surgical History: Procedure Laterality Date BREAST LESION,OTHER,EXCISION Right 05/09/2017 benign excisional biopsy COLONOSCOPY, DIAGNOSTIC (RECTUM) 12/20/2012 COLONOSCOPY FLEXIBLE PROXIMAL DIAGNOSTIC performed by Naomie Magallanes MD at ENDOSCOPY [facility] COLONOSCOPY, DIAGNOSTIC (RECTUM) N/A 05/10/2016 COLONOSCOPY FLEXIBLE PROXIMAL DIAGNOSTIC performed by Jeffrey Weber MD at ENDOSCOPY [facility] COLONOSCOPY, DIAGNOSTIC (RECTUM) N/A 05/11/2022 COLONOSCOPY FLEXIBLE PROXIMAL DIAGNOSTIC performed by Jeffrey Weber MD at ENDOSCOPY [facility] COLONOSCOPY, DIAGNOSTIC (RECTUM) N/A 12/23/2022 COLONOSCOPY FLEXIBLE PROXIMAL DIAGNOSTIC performed by Luisito Reinoso DO at ENDOSCOPY [facility] COLONOSCOPY, DIAGNOSTIC (RECTUM) N/A 01/02/2023 COLONOSCOPY FLEXIBLE PROXIMAL DIAGNOSTIC performed by Naomie Magallanes MD at ENDOSCOPY [facility] EGD, FLEXIBLE, DIAGNOSTIC 05/30/2012 UPPER GI ENDOSCOPY DIAGNOSTIC performed by Cipriano Butler MD at ENDOSCOPY [facility] EGD, FLEXIBLE, DIAGNOSTIC 12/19/2012 UPPER GI ENDOSCOPY DIAGNOSTIC performed by Krupa Robledo DO at ENDOSCOPY [facility] EGD, FLEXIBLE, DIAGNOSTIC N/A 03/21/2014 ESOPHAGOGASTRODUODENOSCOPY (EGD), FLEXIBLE, TRANSORAL, DIAGNOSTIC performed by Axel English [facility] ENDOSCOPY [facility] EGD, FLEXIBLE, DIAGNOSTIC N/A 12/18/2014 ESOPHAGOGASTRODUODENOSCOPY (EGD), FLEXIBLE, TRANSORAL, DIAGNOSTIC performed by Jeffrey Weber MD at ENDOSCOPY [facility] EGD, FLEXIBLE, DIAGNOSTIC N/A 05/10/2016 ESOPHAGOGASTRODUODENOSCOPY (EGD), FLEXIBLE, TRANSORAL, DIAGNOSTIC performed by Jeffrey Weber MD at ENDOSCOPY [facility] EGD, FLEXIBLE, DIAGNOSTIC 06/11/2018 hiatal hernia, repeat 3 yrs/ESOPHAGOGASTRODUODENOSCOPY (EGD), FLEXIBLE, TRANSORAL, DIAGNOSTIC performed by Adelaida Sood MD at ENDOSCOPY [facility] EGD, FLEXIBLE, DIAGNOSTIC N/A 11/01/2019 ESOPHAGOGASTRODUODENOSCOPY (EGD), FLEXIBLE, TRANSORAL, DIAGNOSTIC performed by Michael Bar MD at ENDOSCOPY [facility] EGD, FLEXIBLE, DIAGNOSTIC N/A 05/11/2022 ESOPHAGOGASTRODUODENOSCOPY (EGD), FLEXIBLE, TRANSORAL, DIAGNOSTIC performed by Jeffrey Weber MD at [facility] EGD, FLEXIBLE, DIAGNOSTIC N/A 12/21/2022 ESOPHAGOGASTRODUODENOSCOPY (EGD), FLEXIBLE, TRANSORAL, DIAGNOSTIC performed by Wilmer Bhatia MD at ENDOSCOPY [facility] EXC BREAST LESION RADMARK Right 05/09/2017 EXCISION OF BREAST LESION RADIOLOGICAL MARKER performed by Vicky Bahena MD at OR [facility] INFORMATION 1998 bone spur/cyst & ganglia removal left foot x2 INJECT DX/THER SUBSTANCE INTERLAMINAR LUMBAR/SACRAL W IMAGE GUIDE 07/22/2021 INJECTION SPINE LUMBAR OR SACRAL performed by Wong Cornelius DO at OR [facility] INJECT DX/THER SUBSTANCE INTERLAMINAR LUMBAR/SACRAL W IMAGE GUIDE 11/16/2021 INJECTION SPINE LUMBAR OR SACRAL performed by Wong Cornelius DO at OR [facility] INJECT DX/THER SUBSTANCE INTERLAMINAR LUMBAR/SACRAL W IMAGE GUIDE 06/15/2022 INJECTION SPINE LUMBAR OR SACRAL performed by Wong Cornelius DO at OR [facility] INJECT DX/THER SUBSTANCE INTERLAMINAR LUMBAR/SACRAL W IMAGE GUIDE 11/09/2022 INJECTION SPINE LUMBAR OR SACRAL performed by Wong Cornelius DO at OR [facility] IR BIOPSY 07/02/2012 TRANSCATHETER BIOPSY performed by Fabian Larry MD at RADIOLOGY [facility] L-/S-SPINE PARAVERTEBRAL FACET INJ,1 LEVEL 02/15/2018 L-/S-SPINE PARAVERTEBRAL FACET INJ, 1 LEVEL performed by Wong Cornelius DO at OR [facility] L-/S-SPINE PARAVERTEBRL FACET INJ,2 LEVELS 02/15/2018 L-/S-SPINE PARAVERTEBRAL FACET INJ, 2 LEVELS performed by Wong Cornelius DO at OR [facility] LAPAROSCOPY; CHOLECYSTECTOMY 03/23/10 Dr Ingram LAPAROSCOPY;RMV ADNEXAL STRUCT Bilateral 03/19/2021 LAPAROSCOPIC OOPHORECTOMY AND OR SALPINGECTOMY performed by Randi Mukherjee DO at OR [facility] LIGATE/CUT OVIDUCT(S) 1993 Tubal Ligation LUMBAR / SACRAL EPIDURAL, SINGLE LEVEL 03/05/2018 INJECTION TRANSFORAMINAL EPIDURAL LUMBAR OR SACRAL performed by Wong Cornelius DO at OR [facility] MISCELLANEOUS ORDER ([facility] ONLY) 2001 torn retina repair at [facility] EYE NEEDLE BIOPSY OF LIVER 03/23/10 Dr Ingram REMOVAL OF FOOT LESION Left REMOVAL OF KNEE CARTILAGE 1994 bilateral REMOVAL OF THYROID GLAND REMOVE CATARACT, INSERT LENS PROSTH 10/15/2012 EXTRACAPSULAR CATARACT REMOVAL WITH INTRAOCULAR LENS performed by Shankar Jones MD at [facility] REMOVE CATARACT, INSERT LENS PROSTH 11/29/2012 EXTRACAPSULAR CATARACT REMOVAL WITH INTRAOCULAR LENS performed by Beau Leroy Jr., MD at OR [facility] RIGHT HEART CATH W/ O2 SAT AND CO Right 06/30/2020 RIGHT HEART CATH W/ O2 SAT AND CO performed by Gwyn Akins DO at CARDIAC LABS [facility] SACROILIAC JOINT INJECT W/GUIDANCE 12/25/2017 INJECTION SACROILIAC JOINT performed by Wong Cornelius DO at OR [facility] Family History Problem Relation Age of Onset Heart Disorder Mother 1st IN age 58 Stroke Mother Neurological Disorder Mother [...] Problems Grandmother (Maternal) Heart Disorder Grandfather (Maternal) IN Stroke Grandfather (Maternal) Breast Cancer Grandmother (Paternal) Neurological Disorder Aunt (Unspecified) aneurysm Breast Cancer Aunt (Paternal) X4 Social History Tobacco Use Smoking status: Former Packs/day: 0.25 Years: 25.00 Pack years: 6.25 Types: Cigarettes Smokeless tobacco: Never Tobacco comments: 5-6 a day Vaping Use Vaping Use: Never used Substance Use Topics Alcohol use: No Drug use: Not Currently Types: Marijuana Comment: has not used in "quite a while" Current Outpatient Medications Medication Sig Dispense Refill [...] mouth in the morning. 60 Each 11 Ambrisentan 10 MG Oral Tablet (Letairis) TAKE 1 TABLET BY MOUTH 1 TIME A DAY. DO NOT HANDLE IF . DO NOT SPLIT, CRUSH, OR CHEW. AVOID INHALATION AND CONTACT WITH SKIN OR EYES. 30 Tablet 5 Torsemide 20 MG Oral Tablet (Demadex) Take 2 Tablets by mouth in the morning. TAKE 2 TABLETS BY MOUTH EVERY DAY IN THE MORNING Strength: 20 mg. 180 Tablet 3 Ipratropium-Albuterol 0.5-2.5 (3) MG/3ML Inhalation Solution (Duoneb) [...] BY MOUTH EVERY DAY.) 135 Tablet 1 traZODone HCl 50 MG Oral Tablet (Desyrel) Take 1 Tablet by mouth at bedtime. 90 Tablet 1 Levothyroxine Sodium 150 MCG Oral Tablet (Levoxyl) TAKE 1 TABLET BY MOUTH DAILY IN THE MORNING. (ATLEAST 30 MIN PRIOR TO BREAKFAST OR OTHER MEDS) 90 Tablet 1 Nadolol 40 MG Oral Tablet (Corgard) TAKE 1 TABLET BY MOUTH EVERY DAY IN THE MORNING 90 Tablet 1 traMADol HCl 50 MG Oral Tablet (Ultram) Take 2 Tablets by mouth every 6 hours as needed for Pain, Moderate. 240 Tablet 0 Tadalafil (PAH) 20 MG Oral Tablet Take 2 Tablets by mouth in the morning. 30 Tablet 11 oxygen IN GAS 2 liters at night, at rest, and with ambulation 1 Each 0 Omeprazole 20 MG Oral Capsule Delayed Release (PriLOSEC) Take 1 Capsule by mouth in the morning and1 Capsule before bedtime. 60 Capsule 0 No current facility-administered medications for this visit. Review of patient's allergies indicates: Allergen Reactions Dilaudid [Hydromorphone Hcl] Itching Environmental Pollen -asthmatic attacks Objective: LMP 07/09/2012 General: alert, no distress, well nourished and well developed Eye Exam: Conjunctiva are pink and non-injected, sclera clear Lungs: respirations non-labored Neuro: speech clear, answers questions appropriately Skin: no facial rashes. No perioral cyanosis Wt Readings from Last 5 Encounters: 01/10/23 47.4 kg (104 lb 8 oz) 01/02/23 53.5 kg (118 lb) 12/31/22 46.3 kg (102 lb) 12/30/22 51.9 kg (114 lb 6.4 oz) 12/20/22 52.6 kg (116 lb) Results for orders placed or performed in visit on 01/10/23 MAGNESIUM Result Value Ref Range Magnesium 1.9 1.5 - 2.6 mg/dL ANEMIA CBC Result Value Ref Range WBC 6.62 4.00 - 10.80 K/uL RBC 4.41 3.85 - 5.15 M/uL HGB 11.4 (L) 12.0 - 15.3 g/dL HCT 40.5 36.0 - 45.2 % MCV 91.8 81.5 - 97.5 fL MCH 25.9 27.0 - 34.0 pg MCHC 28.1 32.0 - 36.0 g/dL RDW 27.3 11.5 - 15.5 % PLT 501 (H) 140 - 400 K/uL MPV 12.0 6.6 - 11.1 fL nRBCs 0 <=0 /100 WBCs DIFFERENTIAL, AUTOMATED Result Value Ref Range WBC 6.62 4.00 - 10.80 K/uL Neutrophils % 68.6 40.0 - 75.0 % Lymphocytes % 16.6 (L) 18.0 - 42.0 % Monocytes % 10.7 1.0 - 11.0 % Eosinophils % 2.3 0.0 - 6.0 % Basophils % 1.5 0.0 - 2.0 % Immature Granulocytes % 0.3 0.0 - 2.0 % Absolute Neutrophils 4.54 1.80 - 7.70 K/uL Absolute Lymphocytes 1.10 1.00 - 4.80 K/ul Absolute Monocytes 0.71 0.00 - 1.10 K/uL Absolute Eosinophils 0.15 0.00 - 0.70 K/uL Absolute Basophils 0.10 0.00 - 0.20 K/uL Absolute Immature Granulocytes 0.02 0.00 - 0.20 K/uL IRON SCREEN, INCLUDING TIBC Result Value Ref Range Iron 63 33 - 151 ug/dL Iron Binding Capacity 309 250 - 425 ug/dL Transferrin Saturation Percent 20 15 - 55 % TSH Result Value Ref Range TSH 2.38 0.27 - 4.20 uIU/mL FOLIC ACID Result Value Ref Range Folic Acid 10.2 >4.5 ng/mL VITAMIN B12 Result Value Ref Range Vitamin B12 559 232 - 1,245 pg/mL *Note: Due to a large number of results and/or encounters for the requested time period, some results have not been displayed. A complete set of results can be found in Results Review. Component Latest Ref Rng 12/26/2022 12/27/2022 12/28/2022 12/29/2022 12/30/2022 HGB 12.0 - 15.3 g/dL 7.5 (L) 8.3 (L) 7.5 (L) 9.2 (L) 10.7 (L) HGB 7.0 (LL) Component Latest Ref Rng 12/31/2022 01/01/2023 01/02/2023 01/03/2023 01/10/2023 HGB 12.0 - 15.3 g/dL 10.1 (L) 9.4 (L) 8.8 (L) 9.2 (L) 11.4 (L) HGB 8.8 (L) 8.9 (L) 9.4 (L) HGB 8.1 (L) ASSESSMENT: AVM (arteriovenous malformation) of colon (Primary) Plan: treated with APC Plan: Hgb close to normal now. If anemia would reoccur, consider starting Octreotide Autoimmune hepatitis (HCC) Note: stable Alcoholic cirrhosis of liver without ascites (HCC) Note: MELD score 9 Plan: Labs, liver imaging, and EGD just completed in Sept No esophageal varices seen on EGD Avoid ETOH and NSAIDs Follow Up: Return in about 6 months (around 07/19/2023) for return with Dr Armando or . | For: return with Dr Armando or me [facility]ett [facility] [address] [facility] [id number] Cc: Reggie Eddy DO documented in this encounter Plan of Treatment Upcoming Encounters Date Type Specialty Care Team Description 02/14/2023 Office Visit Family Medicine Reggie Eddy DO [address], [place] [id number] 03/16/2023 Office Visit Pulmonary Twin Hayden MD [address] [place] [address] 07/03/2023 Telemedicine Ophthalmology Fran French DO [address], [place] [id number] Scheduled Procedures Name Priority Associated Diagnoses Date/Ti [...] this encounter Medical Devices Implanted Type Area Crop Specialist Device Identifier Shelf Expiration Date Model / Serial / Lot Lens 22.0 Sa60at - [id number] Implanted:Qty: 1 on 10/15/2012 at OR [facility] Left: Eye [employer] 10/07/2016 SA60AT / [id number] / Lens 22.0 Sa60at - [id number] Implanted:Qty: 1 on 11/29/2012 at [place] [facility] Right: Eye [employer] 03/31/2017 SA60AT / [id number] / Duraclip 11mm Repositionable - [id number] Implanted:Qty: 1 on 05/11/2022 by Jeffrey Weber MD at ENDOSCOPY [facility] Yekra DK [id number] 01/29/2024 [id number] / / [id number] documented as of this encounter Visit Diagnoses Diagnosis AVM (arteriovenous malformation) of colon- Primary Congenital gastrointestinal vessel anomaly Autoimmune hepatitis (HCC) Autoimmune hepatitis Alcoholic cirrhosis of liver without ascites (HCC) Alcoholic cirrhosis of liver documented in this encounter Advance Directives Latest [...] the patient have Health Care Power of Turbine Mechanic? No Care Teams Bagel Maker Relationship Specialty Start Date End Date Reggie Eddy, [place] [address] PCP - General Internal Medicine 03/08/22 documented as of this encounter
--- OUTSIDE RECORDS SUMMARY | 2023-03-19 22:28 | External Medical Summary ---
Author Name Unknown Address Unknown Organization [id number]:[facility] - [address] [facility] [address] Laboratory Report Ordering Provider Test Date Status CONOR MARY 01/12/2023 15:22:49 Final Observation Date Value Abnormality Reference (Units ) Status BUN 01/12/2023 15:22:49 9 6-20 (mg/dL) Final Creatinine 01/12/2023 15:22:49 0.9 0.5-1.0 (mg/dL) Final Glomerular filtration rate/1.73 sq M.predicted [Volume Rate/Area] in Serum, Plasma or Blood by Creatinine-based formula (CKD-EPI) 01/12/2023 15:22:49 72 >=60 (mL/min) Final eGFR is calculated based on the CKD-EPI 2020 equation SODIUM 01/12/2023 15:22:49 145 135-146 (m mol/L) Final Potassium 01/12/2023 15:22:49 3.5 3.5-5.1 (m mol/L) Final Cl 01/12/2023 15:22:49 103 98-107 (mm ol/L) Final CO2 01/12/2023 15:22:49 29 22-32 (mmo l/L) Final Anion gap 01/12/2023 15:22:49 13 7-15 (mmol /L) Final Glucose 01/12/2023 15:22:49 105 70-120 (mg /dL) Final Calcium 01/12/2023 15:22:49 9.1 8.4-10.2 ( mg/dL) Final Performing Location [facility] - [address] [facility] [address]
--- OUTSIDE RECORDS SUMMARY | 2023-03-19 22:28 | External Medical Summary | Summary of Care ---
Author Name Unknown Organization [facility] Address [address] [place] [address] Phone [phone] Care Team Providers Care Road Freight Brake Coupler Name Role Phone Reggie Eddy DO Primary Care Provid er Reason for Visit * Reason Onset Date Comments Scheduling 01/05/2023 LMOM 01/06/2023 Encounter Details Date Type Department Care Team Description 01/05/2023 Telephone [facility] [address] [place] [address] Reggie Eddy DO [address] [place] [phone] Scheduling (LMOM 01/06/2023) Allergies Active Allergy Reactions Severity Noted Date Comments Hydromorphone Hcl Itching Medium 11/09/2015 Environmental Low 05/04/2010 Pollen -asthmatic attacks documented as of this encounter (statuses as of 01/06/2023) Medications Medication Sig Dispensed Refills Start Date [...] Active Additional Information Patient taking differently:3 mL [id number] PRN, Dyspnea, Reported on 12/21/2022 Mycophenolate Mofetil [...] as of this encounter (statuses as of 01/06/2023) Active Problems Problem Noted Date Hematochezia 01/02/2023 [...] typical SLE sx- negative/normal C3/C4, SSA/SSB, centromere, INSIDE SALES ACCOUNT REPRESENTATIVE/Sm, ESR,CRP. dsDNA borderline. [place] unlikely SLE. o 2012: Seen again by Rheum- Dr. Jung- photosensitive rash and raynauds. Borderline dsDNA. [place] likely SLE, though possible AIH could explain (+) MARY. HCQ discussed but wanted to avoid by GI. o [id number]: multiple hospitalizations for ascites; returned to Rheum [...] as of this encounter (statuses as of 01/06/2023) Resolved Problems Problem Noted Date Resolved Date [...] as of this encounter (statuses as of 01/06/2023) Immunizations Name Administration Dates Next Due HEP A - Hepatitis A (Adult > 18 yrs) 09/15/2015 HEP B - Hepatitis B (Dialysis/Immumocomp Pt) HepA Inact/HepB Recomb>=18yrs old 10/08/2012 Hepatitis B, 20+ yrs 09/15/2015 PPD 09/28/2010,09/07/2010 Pneumococcal Polysaccharide PPV23 (Pneumovax) TDAP (age 10 and older)(Boostrix) 08/18/2014 documented as of this encounter Social History Tobacco Use Types Packs/Day Years Used Date Smoking Tobacco: Every Day Cigarettes 0.3 25 Smokeless Tobacco: Never Comments:5-6 [...] encounter Miscellaneous Notes * Telephone Encounter - JOSE LUIS Santos - 01/06/2023 3:13 PM EDT Attempted to reach patient, LMOM. We are non-par w/pt's insurance, if pt calls back * Telephone Encounter - Liseth Webb RN - 01/05/2023 2:10 PM EDT Patient discharged from [facility] on 01/03/23 for dx of bright red blood per rectum, hematochezia, AVM. She was previously admitted to [facility] on 12/21/22 for hemorrhagic shock. She was evaluated by GI at that time and had Colonoscopy/EGD done which showed no active bleeding but showed evidence of varices and angiodysplastic lesions. Patient returned to hospital 12/31/22 for multiple bloody bowel movements. Patient was found to have low hgb and required blood transfusion. She had another colonoscopy 01/02/23. Patient would like a follow-up appointment with GI, she was established with Dr. Simon Armando in the past. Please contact patient to schedule. Thank you. documented in this encounter Plan of Treatment Upcoming Encounters Date Type Specialty Care Team Description 01/09/2023 Office Visit Ophthalmology Fran French DO [address] [place] [address] 01/10/2023 Office Visit Family Medicine Juana Nunez PA-C [address] [place] [address] 03/16/2023 Office Visit Pulmonary Twin Hayden MD [address] [place] [address] Scheduled Procedures Name Priority Associated Diagnoses Date/Ti [...] Health Maintenance Due Date Last Done Comments DISCUSS TOBACCO CESSATION (REFER TO SMARTSET #3290) 1965 COVID-19 Vaccine (#1) 1970 Alpha-1 Antitrypsin 1983 [...] 06/21/2023 06/20/2022, 04/11, 04/30/2019, Additional history exists TSH 12/22/2023 12/21/2022, 12/06/2021, 01/29/2021, Additional history exists O2 ASSESSMENT COMPLETED IN PAST YEAR FOR COPD 01/03/2024 01/02/2023 Lipid Panel 02/29/2024 02/28/2019, 11/08, 10/08/2012, Additional [...] this encounter Medical Devices Implanted Type Area Dinkey Operator Slag Device Identifier Shelf Expiration Date Model / Serial / Lot Lens 22.0 Sa60at - [id number] Implanted:Qty: 1 on 10/15/2012 at OR [facility] Left: Eye [employer] 10/07/2016 SA60AT / [id number] / Lens 22.0 Sa60at - [id number] Implanted:Qty: 1 on 11/29/2012 at OR [facility] Right: Eye [employer] 03/31/2017 SA60AT / [id number] / Duraclip 11mm Repositionable - [id number] Implanted:Qty: 1 on 05/11/2022 by Jeffrey Weber MD at ENDOSCOPY [facility] Proficient [id number] 01/29/2024 [id number] / / [id number] documented as of this encounter Advance [...] the patient have Health Care Power of Practical Nursing Teacher? No Care Teams Road Freight Brake Coupler Relationship Specialty Start Date End Date Reggie Eddy, DO [address] [facility], [place] [phone] PCP - General Internal Medicine 03/08/22 documented as of this encounter
--- OUTSIDE RECORDS SUMMARY | 2023-03-19 22:28 | External Medical Summary ---
Author Name Unknown Address Unknown Organization K01:[facility] - [address] [place] [address] Laboratory Report Ordering Provider Test Date Status JOSEERIBERTO 01/10/2023 10:58:31 Final Observation Date Value Abnormality Reference (Units ) Status Magnesium 01/10/2023 10:58:31 1.9 1.5-2.6 (m g/dL) Final Performing Location [facility] - [address] [facility] [address]
--- OUTSIDE RECORDS SUMMARY | 2023-03-19 22:28 | External Medical Summary | Summary of Care ---
Author Name Unknown Organization [facility] Address [address] [place] [address] Phone [phone] Care Team Providers Care Refrigeration Service Inspector Name Role Phone Reggie Eddy DO Primary Care Provid er Reason for Visit * Reason Onset Date Comments Scheduling 01/05/2023 LMOM 01/06/2023 Encounter Details Date Type Department Care Team Description 01/05/2023 Telephone [facility] [address] [place] [address] Reggie Eddy DO [address] [place] [phone] Scheduling (LMOM 01/06/2023) Allergies Active Allergy Reactions Severity Noted Date Comments Hydromorphone Hcl Itching Medium 11/09/2015 Environmental Low 05/04/2010 Pollen -asthmatic attacks documented as of this encounter (statuses as of 01/09/2023) Medications Medication Sig Dispensed Refills Start Date [...] Active Additional Information Patient taking differently:3 mL [id number] PRN, Dyspnea, Reported on 12/21/2022 Mycophenolate Mofetil [...] as of this encounter (statuses as of 01/09/2023) Active Problems Problem Noted Date Hematochezia 01/02/2023 [...] o Lost to follow up- moved to [place] o 2009: 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 dsDNA borderline. [place] unlikely SLE. o 2012: Seen again by Rheum- Dr. Jung- photosensitive rash and raynauds. Borderline dsDNA. [place] likely SLE, though possible AIH could explain (+) MARY. HCQ discussed but wanted to avoid by GI. o [phone]: multiple hospitalizations for ascites; returned to Rheum [...] as of this encounter (statuses as of 01/09/2023) Resolved Problems Problem Noted Date Resolved Date [...] as of this encounter (statuses as of 01/09/2023) Immunizations Name Administration Dates Next Due HEP [...] 01/05/2023 2:10 PM EDT Patient discharged from [facility] on 01/03/23 for dx of bright red blood per rectum, hematochezia, AVM. She was previously admitted to [facility] on 12/21/22 for hemorrhagic shock. She was [...] Encounters Date Type Specialty Care Team Description 01/10/2023 Office Visit Family Medicine Juana Nunez PA-C [address] [place] [address] 01/23/2023 Appointment Radiology 03/16/2023 Office Visit Pulmonary Twin Hayden MD [address] [place], [place] [phone] 07/03/2023 Telemedicine Ophthalmology Fran French DO [address] [place] [address] Scheduled Procedures Name Priority Associated [...] Comments DISCUSS TOBACCO CESSATION (REFER TO SMARTSET #3291) 1965 COVID-19 Vaccine (#1) 1970 Alpha-1 Antitrypsin [...] 04/30/2019, Additional history exists TSH 12/22/2023 12/21/2022, 03/11, 01/29/2021, Additional history exists O2 ASSESSMENT COMPLETED [...] this encounter Medical Devices Implanted Type Area Patient Financial Rep Device Identifier Shelf Expiration Date Model / Serial / Lot Lens 22.0 Sa60at - [id number] Implanted:Qty: 1 on 10/15/2012 at OR [facility] Left: Eye [employer] 10/07/2016 SA60AT / [id number] / Lens 22.0 Sa60at - [id number] Implanted:Qty: 1 on 11/29/2012 at OR [facility] Right: Eye [employer] 03/31/2017 SA60AT / [id number] / Duraclip 11mm Repositionable - [id number] Implanted:Qty: 1 on 05/11/2022 by Jeffrey Weber MD at ENDOSCOPY [facility] Gamblino [id number] 01/29/2024 [id number] / / [id number] documented as of this encounter Advance [...] the patient have Health Care Power of Oil Well Cable Tool Driller? No Care Teams Refrigeration Service Inspector Relationship Specialty Start Date End Date Reggie Eddy, [place] [address] PCP - General Internal Medicine 03/08/22 documented as of this encounter
--- OUTSIDE RECORDS SUMMARY | 2023-03-19 22:28 | External Medical Summary ---
Author Name Unknown Address Unknown Organization K01:LABORATORY [facility] - [address] [place] [address] Laboratory Report Ordering Provider Test Date Status CONOR MARY 01/10/2023 10:58:31 Final Exclude Heart Failure: <300 pg/mL
Diagnose Heart Failure:
Age <50 yr: >450 pg/mL
50-75 yr: >900 pg/mL
>75 yr: >1800 pg/mL
GFR is 30-59 mL/min: >1200 pg/mL or Age- adjusted values
GFR <30 mL/min: do not use, not reliable

Prognostic threshold: 1000 pg/mL Observation Date Value Abnormality Reference (Units ) Status BNP, Pro-hormone 01/10/2023 10:58:31 81 <30 0 (pg/mL) Final Performing Location LABORATORY [facility] - [facility][note 2] [address] [place] [address]
--- OUTSIDE RECORDS SUMMARY | 2023-03-19 22:28 | External Medical Summary | Summary of Care ---
Author Name Unknown Organization [facility] Address [address] [place] [address] Phone [phone] Care Team Providers Care Instructor Trainer Canine Service Name Role Phone Reggie Eddy DO Primary Care Provid er Reason for Visit * Reason Comments Hospital Follow-Up Patient went to [facility] twice over the last month for rectal bleeding. Was transferred to [facility] for further treatment. Patient is no longer seeing blood.Patient still feels weak but no other symptoms. Encounter Details Date Type Department Care Team Description 01/10/2023 Office Visit [address] [address] Juana Nunez PA-C [address] [place] [phone] Hospital discharge follow-up*; Anemia associated with acute blood loss; Hematochezia; AVM (arteriovenous malformation) of colon Allergies Active Allergy Reactions Severity Noted Date Comments Hydromorphone Hcl Itching Medium 11/09/2015 Environmental Low 05/04/2010 Pollen -asthmatic attacks documented as of this encounter (statuses as of 01/10/2023) Medications Medication Sig Dispensed Refills Start Date [...] Active Additional Information Patient taking differently:3 mL [id number] PRN, Dyspnea, Reported on 12/21/2022 Mycophenolate Mofetil [...] as of this encounter (statuses as of 01/10/2023) Active Problems Problem Noted Date Hematochezia 01/02/2023 [...] o Lost to follow up- moved to [place] o 2009: 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 dsDNA borderline. [place] unlikely SLE. o 2012: Seen again by Rheum- Dr. Jung- photosensitive rash and raynauds. Borderline dsDNA. [place] likely SLE, though possible AIH could explain (+) MARY. HCQ discussed but wanted to avoid by GI. o [phone]: multiple hospitalizations for ascites; returned to Rheum [...] as of this encounter (statuses as of 01/10/2023) Resolved Problems Problem Noted Date Resolved Date [...] as of this encounter (statuses as of 01/10/2023) Immunizations Name Administration Dates Next Due HEP [...] Sign Reading Time Taken Comments Blood Pressure 90/58 01/10/2023 10:23 AM EDT Pulse 66 01/10/2023 10:23 AM EDT Temperature 36.8 C (98.2 F) 01/10/2023 10:23 AM E DT Respiratory Rate 18 01/10/2023 10:23 AM EDT Oxygen Saturation 87% 01/10/2023 10:23 AM EDT Inhaled Oxygen Concentration - - Weight 47.4 kg (104 lb 8 oz) 01/10/2023 10:23 AM EDT Height - - Body Mass Index 16.87 12/31/2022 8:08 PM EDT documented in this [...] as of this encounter Progress Notes * Juana Nunez PA-C - 01/10/2023 10:25 AM EDT Images from the original note were not included. History of Present Illness Jazmín Blevins is a 57 year old female who present to the office for a hospital discharge follow up. Patient was admitted to [facility] for hematochezia and anemia on 12/21/22 and 12/31/22. Patient initially presented to ED on 12/21/22. Was found to be hypotensive and with a hemoglobin of 5.4. Patient was treated with low-dose pressors and given blood transfusions. Underwent EGD which did not show any signs of acute bleeding but did show esophagitis. Patient was treated with Diflucan x 14 days. Underwent a colonoscopy which revealed AVMs that were non bleeding but treated with argon therapy. Had shortness of breath and required oxygen while in hospital due to pulmonary hypertension meds held. Patient was discharged on 12/30/22. The next day on 12/31/22, patient had 3 bowel movements that consisted of bright red blood and clots. Patient returned to ED and was admitted. Underwent a second colonoscopy which revealed AVMs which were treated with APC. Remained hemodynamically stable and was discharged on 01/03/23. Patient was started on omeprazole. Discharge report received and reviewed. Patient reports overall doing better. Has not had any bright red blood per rectum or black stools. Patient stated she still feels weak and tired. Has no energy. Is still taking her iron. Plans to schedule follow up with GI and pulmonology. BP noted to be low. Denied dizziness, light headedness, syncope, CP. Physical Exam Vitals: 01/10/23 1023 Temp: 36.8 C (98.2 F) Pulse: 66 Resp: 18 SpO2: 87% BP: 90/58 BP Readings from Last 3 Encounters: 01/10/23 90/58 01/03/23 101/68 12/31/22 100/61 Physical Exam Vitals and nursing note reviewed. Constitutional: General: She is not in acute distress. Appearance: Normal appearance. She is not ill-appearing, toxic-appearing or diaphoretic. HENT: Head: Normocephalic and atraumatic. Eyes: General: No scleral icterus. Conjunctiva/sclera: Conjunctivae normal. Cardiovascular: Rate and Rhythm: Normal rate and regular rhythm. Heart sounds: Normal heart sounds. No murmur heard. Pulmonary: Effort: Pulmonary effort is normal. No respiratory distress. Breath sounds: No stridor. No wheezing, rhonchi or rales. Skin: General: Skin is warm. Coloration: Skin is not pale. Findings: No rash. Neurological: Mental Status: She is alert and oriented to person, place, and time. I have reviewed the following results: CBC, BMP, and Magnesium Assessment and Plan Hospital discharge follow-up - CBC WITH WBC DIFFERENTIAL AND ANEMIA REFLEX WORKUP; Future - IRON SCREEN, INCLUDING TIBC; Future - BASIC METABOLIC PANEL; Future Anemia associated with acute blood loss - CBC WITH WBC DIFFERENTIAL AND ANEMIA REFLEX WORKUP; Future - IRON SCREEN, INCLUDING TIBC; Future - BASIC METABOLIC PANEL; Future - Continue iron Hematochezia - CBC WITH WBC DIFFERENTIAL AND ANEMIA REFLEX WORKUP; Future - IRON SCREEN, INCLUDING TIBC; Future - BASIC METABOLIC PANEL; Future AVM (arteriovenous malformation) of colon - Follow up with GI Take change in position, such as going from a sitting to a standing, slow. Increase water intake. If dizziness or lightheadedness occurs go to ED. Monitor BP at home. Wrap-Up Follow-up: Return in about 4 weeks (around 02/07/2023). | Check-out note: NV for BP check in 1 -2 weeks Time: I spent a total of 30-39 minutes (exact time 38 mins) on the date of service in preparation, delivery, and documentation of the care provided to Jazmín Blevins excluding any time spent in the performance of separately billed services. documented in this encounter Nursing Notes * Judith Gordon LPN - 01/10/2023 10:23 AM EDT The patient has been properly identified by confirmation of name and date of . Chief Complaint Patient presents with Hospital Follow-Up Patient went to [facility] twice over the last month for rectal bleeding. Was transferred to [facility] for further treatment. Patient is no longer seeing blood. Patient still feels weak but no other symptoms. documented in this encounter Plan of Treatment Upcoming Encounters Date Type Specialty Care Team Description 01/23/2023 Appointment Radiology 01/23/2023 Nurse Only Meghna Tabares, [facility] [place] [address] 02/14/2023 Office Visit Family Medicine Reggie Eddy DO [address] [facility] [place] [address] 03/16/2023 Office Visit Pulmonary Twin Hayden MD [address] [place] [address] 07/03/2023 Telemedicine Ophthalmology Fran French DO [address] [place] [address] Scheduled Orders Name Type Priority Associated Diagnoses Orde r Schedule IRON SCREEN, INCLUDING TIBC Lab Routine Hematochezia Hospital discharge follow-up Anemia associated with acute blood loss Expected: 01/10/2023 (Approximate), Expires: 01/10/2024 Scheduled Procedures Name Priority Associated Diagnoses Date/Ti [...] FOR COPD 01/03/2024 01/02/2023 TSH 01/11/2024 01/10/2023, 12/09, 04/01/2022, Additional history exists Lipid Panel 02/29/2024 02/28/2019, [...] this encounter Medical Devices Implanted Type Area Door Fitter Device Identifier Shelf Expiration Date Model / Serial / Lot Lens 22.0 Sa60at - [id number] Implanted:Qty: 1 on 10/15/2012 at OR [facility] Left: Eye [employer] 10/07/2016 SA60AT / [id number] / Lens 22.0 60at - [id number] Implanted:Qty: 1 on 11/29/2012 at OR [facility] Right: Eye [employer] 03/31/2017 SA60AT / [id number] / Duraclip 11mm Repositionable - [id number] Implanted:Qty: 1 on 05/11/2022 by Jeffrey Weber MD at ENDOSCOPY [facility] [employer] [id number] 01/29/2024 [id number] / / [id number] documented as of this encounter Visit Diagnoses Diagnosis Hospital discharge follow-up- Primary Other follow-up examination Anemia associated with acute blood loss Acute posthemorrhagic anemia Hematochezia Blood in stool 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 No Care Teams Instructor Trainer Canine Service Relationship Specialty Start Date End Date Reggie Eddy, [place] [address] PCP - General Internal Medicine 03/08/22 documented as of this encounter"
--- OUTSIDE RECORDS SUMMARY | 2023-03-19 22:28 | External Medical Summary ---
Author Name Unknown Address Unknown Organization K01:LABORATORY [facility] - [address] [facility] [address] Laboratory Report Ordering Provider Test Date Status KATE HOLDER 01/10/2023 10:58:31 Final Observation Date Value Abnormality Reference (Units ) Status TSH 01/10/2023 10:58:31 2.38 0.27-4.20 (uIU/mL) Final Performing Location LABORATORY [facility] - [address] [facility] [address]
--- OUTSIDE RECORDS SUMMARY | 2023-03-19 22:28 | External Medical Summary ---
Author Name Unknown Address Unknown Organization K01:LABORATORY [facility] - [address] [place] [address] Laboratory Report Ordering Provider Test Date Status CAROLINA LAL 01/10/2023 10:58:31 Final Observation Date Value Abnormality Reference (Units ) Status TSH 01/10/2023 10:58:31 2.36 0.27-4.20 (uIU/mL) Final Performing Location LAB[facility]ATORY [facility] - [address] [place] [address]
--- OUTSIDE RECORDS SUMMARY | 2023-03-19 22:28 | External Medical Summary ---
Author Name Unknown Address Unknown Organization K01:[facility] [place] [address] [place] [address] Laboratory Report Ordering Provider Test Date Status KATE HOLDER 01/10/2023 10:58:31 Final Observation Date Value Abnormality Reference (Units ) Status WBC, Total 01/10/2023 10:58:31 6.62 4.00-10.8 0 (K/uL) Final RBC 01/10/2023 10:58:31 4.41 3.85-5.15 (M/uL) Final Hemoglobin 01/10/2023 10:58:31 11.4 Below low normal 12 .0-15.3 (g/dL) Final Anemia reflex testing trigge rs on a HGB < 12.0 for Females and HGB < 13.0 for Males in accordance with the WHO Anemia Guidelines
Anemia reflex testing triggers on a HGB < 12.0 for Females and HGB < 13.0 for Males in accordance with the WHO Anemia Guidelines HCT 01/10/2023 10:58:31 40.5 36.0-45.2 (%) Final MCV 01/10/2023 10:58:31 91.8 81.5-97.5 (fL) Final MCH 01/10/2023 10:58:31 25.9 27.0-34.0 (pg) Final MCHC 01/10/2023 10:58:31 28.1 32.0-36.0 (g/dL) Final RDW 01/10/2023 10:58:31 27.3 11.5-15.5 (%) Final Platelets 01/10/2023 10:58:31 501 Above hi gh normal 140-400 (K/uL) Final MPV 01/10/2023 10:58:31 12.0 6.6-11.1 ( fL) Final Nucleated erythrocytes/100 leukocytes [Ratio] in Blood by Automated count 01/10/2023 10:58:31 0 <=0 (/100 WBCs) Final Performing Location [facility] [place] Formerly [facility] [address] [facility] [address]
--- OUTSIDE RECORDS SUMMARY | 2023-03-19 22:28 | External Medical Summary ---
Author Name Unknown Address Unknown Organization K01:[facility] [place] [address] [facility] [address] Laboratory Report Ordering Provider Test Date Status REJI FELIZ 01/10/2023 10:58:31 Final Observation Date Value Abnormality Reference (Units ) Status Color of Urine by Auto 01/10/2023 10:58:31 Colorless Colorless, Light Yellow, Yellow, Dark Yellow Final Clarity, Urine 01/10/2023 10:58:31 Clear Clear Final Glucose [Mass/volume] in Urine by Automated test strip 01/10/2023 10:58:31 Negative Negative (mg/dL) Final Bilirubin.total [Presence] in Urine by Automated test strip 01/10/2023 10:58:31 Negative Negative Final Ketones [Mass/volume] in Urine by Automated test strip 01/10/2023 10:58:31 Negative Negative (mg/dL) Final Specific gravity, Urine 01/10/2023 10:58:31 1.007 1.003-1.030 Final Hemoglobin [Presence] in Urine by Automated test strip 01/10/2023 10:58:31 Negative Negative Final pH, Urine 01/10/2023 10:58:31 7.0 5.0-7.5 (Units) Final Protein [Mass/volume] in Urine by Automated test strip 01/10/2023 10:58:31 Negative Negative (mg/dL) Final Urobilinogen [Mass/volume] in Urine by Automated test strip 01/10/2023 10:58:31 Normal Normal (mg/dL) Final Nitrite [Presence] in Urine by Automated test strip 01/10/2023 10:58:31 Negative Negative Final Leukocyte esterase [Presence] in Urine by Automated test strip 01/10/2023 10:58:31 Negative Negative Final Annotation Comment 01/10/2023 10:58:31 Final Screen negative - Microscopi c not performed. Performing Location LABORATORY [facility] - [address] [facility] [address]
--- OUTSIDE RECORDS SUMMARY | 2023-03-19 22:28 | External Medical Summary ---
Author Name Unknown Address Unknown Organization K01:[place] [facility] [place] [address] [place] [address] Laboratory Report Ordering Provider Test Date Status IESHA MONTES 01/03/2023 09:05:00 Kati hoyt Observation Date Value Abnormality Reference (Units ) Status Magnesium 01/03/2023 09:05:00 2.0 1.5-2.6 (m g/dL) Final Performing Location LABORATORY [facility] - [address] [place] [address]
--- OUTSIDE RECORDS SUMMARY | 2023-03-19 22:28 | External Medical Summary ---
Author Name Unknown Address Unknown Organization [id number]:LABORATORY [facility] [place] - [address] [place] [address] Laboratory Report Ordering Provider Test Date Status KATE HOLDER 01/10/2023 10:58:31 Final Observation Date Value Abnormality Reference (Units ) Status Vitamin B12 01/10/2023 10:58:31 [phone] (pg/mL) Final Performing Location LABORATORY [facility] [place] - [address] [place] [address]
--- OUTSIDE RECORDS SUMMARY | 2023-03-19 22:28 | External Medical Summary | Summary of Care ---
Author Name Unknown Organization [facility] Address [address] [place] [address] Phone [phone] Care Team Providers Care Trading Assistant Name Role Phone Reggie Eddy DO Primary Care Provid er Reason for Referral * Precert (Within 10 days (routine)) - Pending Review Specialty Diagnoses / Procedures Referred By Jordyn cano Referred To Contact Radiology Diagnoses Pain around left eye Procedures MRI ORBITS WITH/WITHOUT CONTRAST Fran French DO [address] [place] [address] Referral ID Status Reason Start Date Expiration Date V isits Requested Visits Authorized [id number] Pending Review 01/23/2023 999 999 Reason for Visit * Reason Comments Follow Up Encounter Details Date Type Department Care Team Description 01/09/2023 Office Visit [address] [id number] Fran French DO [address] [place] [address] Pain around left eye*; Other localized visual field defect, left eye Allergies Active Allergy Reactions Severity Noted Date [...] Active Additional Information Patient taking differently:3 mL [id number] PRN, Dyspnea, Reported on 12/21/2022 Mycophenolate Mofetil [...] o Lost to follow up- moved to [place] o 2009: 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 dsDNA borderline. Sod unlikely SLE. o 2012: Seen again by Rheum- Dr. Jung- photosensitive rash and raynauds. Borderline dsDNA. Sod likely SLE, though possible AIH could explain (+) MARY. HCQ discussed but wanted to avoid by GI. o [id number]: multiple hospitalizations for ascites; returned to Rheum [...] No 12/31/2022 documented as of this encounter Patient Instructions * Patient Instructions* Fran French DO - 01/09/2023 12:03 PM EDT Occipital neuralgia - greater occipital nerve block left documented in this encounter Progress Notes * Fran French DO - 01/09/2023 11:05 AM EDT NEURO-OPHTHALMOLOGY- New patient [facility] Name: Jazmín Blevins Ref: REGGIE EDDY[[id number]] [address] [place], [place] [id number] (office) [phone] (fax) PCP: REGGIE EDDY [address] [place] [address] [phone] History provided by: Patient Chief Complaint: Chief Complaint Patient presents with Follow Up HPI: 57 year old female seen today by Neuro-Ophthalmology for Eye pain Left eye. Left eyes with feeling of pressure like tugging Last a while like 1 day a week Blurry at times in the morning - can be few hours or more, starts to clear Some headaches not a lot Back of neck Nursing Notes: Edna Red, [facility] 01/09/23 1048 Signed Jazmín Blevins is a 57 year old female who presents for eye exam. Last Visit: Visit date not found (in office), Visit date not found (telemedicine) She currently reports vision worse, all distances. OS with pressure and blurriness behind eye, worse in the morning. Denies flashes/floaters/double vision. More frequent headache. Recent hospitalization for gastrointestinal hemorrhage. Uses magnesium, cellcept, levoxyl. Dx lupus. Denies redness/pain. OU watery. Reports notable photosensitivity. States glasses are not helpful, did not bring today. Are you diabetic? NO. Current Ophthalmic Medications: Refresh PRN Last Visit: Visit date not found (in office), Visit date not found (telemedicine) Vision, Tonometry, current glass prescription and pupil check if done can be found in the ophth exam Sinai Wynne, [facility] 01/09/23 1118 Signed OCT image(s) of both eyes acquired and filed/scanned into chart. Referred by Reggie Martínez* PAST MEDICAL HISTORY: Past Medical History: Diagnosis Date Arthritis Asthma Autoimmune hepatitis (HCC) Cirrhosis (HCC) Esophageal varices in cirrhosis (HCC) Esophageal varices without mention of bleeding in diseases classified elsewhere 12/19/2012 upper endoscopy Hemorrhage of gastrointestinal tract, unspecified 12/20/2012 colonoscopy Hiatal hernia Laryngospasm Portal hypertensive gastropathy (HCC) Postsurgical hypothyroidism Schatzki's ring Sialoadenitis Systemic lupus erythematosus (HCC) diagnosis in question Toxic diffuse goiter Current Outpatient Medications: Current Outpatient Medications Medication Sig Dispense Refill [...] No current facility-administered medications for this visit. PAST SURGICAL HISTORY: Past Surgical History: Procedure Laterality Date BREAST LESION,OTHER,EXCISION Right 05/09/2017 benign excisional biopsy COLONOSCOPY, DIAGNOSTIC (RECTUM) 12/20/2012 COLONOSCOPY FLEXIBLE PROXIMAL DIAGNOSTIC performed by Naomie Magallanes MD at ENDOSCOPY [facility] COLONOSCOPY, DIAGNOSTIC (RECTUM) N/A 05/10/2016 COLONOSCOPY FLEXIBLE PROXIMAL DIAGNOSTIC performed by Jeffrey Weber MD at ENDOSCOPY [facility] COLONOSCOPY, DIAGNOSTIC (RECTUM) N/A 05/11/2022 COLONOSCOPY FLEXIBLE PROXIMAL DIAGNOSTIC performed by Jeffrey Weber MD at ENDOSCOPY [facility] COLONOSCOPY, DIAGNOSTIC (RECTUM) N/A 12/23/2022 COLONOSCOPY FLEXIBLE PROXIMAL DIAGNOSTIC performed by Luisito Reinoso DO at ENDOSCOPY [facility] COLONOSCOPY, DIAGNOSTIC (RECTUM) N/A 01/02/2023 COLONOSCOPY FLEXIBLE PROXIMAL DIAGNOSTIC performed by Naomie Magallanes MD at ENDOSCOPY [facility] EGD, FLEXIBLE, DIAGNOSTIC 05/30/2012 UPPER GI ENDOSCOPY DIAGNOSTIC performed by Cipriano Butler MD at ENDOSCOPY [facility] EGD, FLEXIBLE, DIAGNOSTIC 12/19/2012 UPPER GI ENDOSCOPY DIAGNOSTIC performed by Krupa Robledo DO at ENDOSCOPY [facility] EGD, FLEXIBLE, DIAGNOSTIC N/A 03/21/2014 ESOPHAGOGASTRODUODENOSCOPY (EGD), FLEXIBLE, TRANSORAL, DIAGNOSTIC performed by Axel English MDat ENDOSCOPY [facility] EGD, FLEXIBLE, DIAGNOSTIC N/A 12/18/2014 ESOPHAGOGASTRODUODENOSCOPY (EGD), FLEXIBLE, TRANSORAL, DIAGNOSTIC performed by Jeffrey Weber MD at ENDOSCOPY [facility] EGD, FLEXIBLE, DIAGNOSTIC N/A 05/10/2016 ESOPHAGOGASTRODUODENOSCOPY (EGD), FLEXIBLE, TRANSORAL, DIAGNOSTIC performed by Jeffrey Weber MD at ENDOSCOPY [facility] EGD, FLEXIBLE, DIAGNOSTIC 06/11/2018 hiatal hernia, repeat 3 yrs/ESOPHAGOGASTRODUODENOSCOPY (EGD), FLEXIBLE, TRANSORAL, DIAGNOSTIC performed by Adelaida Sood MD at ENDOSCOPY [facility] EGD, FLEXIBLE, DIAGNOSTIC N/A 11/01/2019 ESOPHAGOGASTRODUODENOSCOPY (EGD), FLEXIBLE, TRANSORAL, DIAGNOSTIC performed by Michael Bar MD at ENDOSCOPY [facility] EGD, FLEXIBLE, DIAGNOSTIC N/A 05/11/2022 ESOPHAGOGASTRODUODENOSCOPY (EGD), FLEXIBLE, TRANSORAL, DIAGNOSTIC performed by Jeffrey Weber MD at ENDOSCOPY [facility] EGD, FLEXIBLE, DIAGNOSTIC N/A 12/21/2022 ESOPHAGOGASTRODUODENOSCOPY (EGD), FLEXIBLE, TRANSORAL, DIAGNOSTIC performed by Wilmer Bhatia MD at ENDOSCOPY [facility] EXC BREAST LESION RADMARK Right 05/09/2017 EXCISION OF BREAST LESION RADIOLOGICAL MARKER performed by Vicky Bahena MD at OR [facility] INFORMATION 1997 bone spur/cyst & ganglia removal left foot x2 INJECT DX/THER SUBSTANCE INTERLAMINAR LUMBAR/SACRAL W IMAGE GUIDE 07/22/2021 INJECTION SPINE LUMBAR OR SACRAL performed by Wong Cornelius DO at OR [facility] INJECT DX/THER SUBSTANCE INTERLAMINAR LUMBAR/SACRAL W IMAGE GUIDE 11/16/2021 INJECTION SPINE LUMBAR OR SACRAL performed by Wong Cornelius DO at OR [facility] INJECT DX/THER SUBSTANCE INTERLAMINAR LUMBAR/SACRAL W IMAGE GUIDE 06/15/2022 INJECTION SPINE LUMBAR OR SACRAL performed by Wong Cornelius DO at OR [facility] INJECT DX/THER SUBSTANCE INTERLAMINAR LUMBAR/SACRAL W IMAGE GUIDE 11/09/2022 INJECTION SPINE LUMBAR OR SACRAL performed by Wong Cornelius DO at OR [facility] IR BIOPSY 07/02/2012 TRANSCATHETER BIOPSY performed by Fabian Larry MD at RADIOLOGY [facility] L-/S-SPINE PARAVERTEBRAL FACET INJ,1 LEVEL 02/15/2018 L-/S-SPINE PARAVERTEBRAL FACET INJ, 1 LEVEL performed by Wong Cornelius DO at OR [facility] L-/S-SPINE PARAVERTEBRL FACET INJ,2 LEVELS 02/15/2018 L-/S-SPINE PARAVERTEBRAL FACET INJ, 2 LEVELS performed by Wong Cornelius DO at OR [facility] LAPAROSCOPY; CHOLECYSTECTOMY 03/23/10 Dr Ingram LAPAROSCOPY;RMV ADNEXAL STRUCT Bilateral 03/19/2021 LAPAROSCOPIC OOPHORECTOMY AND OR SALPINGECTOMY performed by Randi Mukherjee DO at OR [facility] LIGATE/CUT OVIDUCT(S) 1993 Tubal Ligation LUMBAR / SACRAL EPIDURAL, SINGLE LEVEL 03/05/2018 INJECTION TRANSFORAMINAL EPIDURAL LUMBAR OR SACRAL performed by Wong Cornelius DO at OR [facility] MISCELLANEOUS ORDER ([facility] ONLY) 2001 torn retina repair at [facility] EYE NEEDLE BIOPSY OF LIVER 03/23/10 Dr Ingram REMOVAL OF FOOT LESION Left REMOVAL OF KNEE CARTILAGE 1994 bilateral REMOVAL OF THYROID GLAND REMOVE CATARACT, INSERT LENS PROSTH 10/15/2012 EXTRACAPSULAR CATARACT REMOVAL WITH INTRAOCULAR LENS performed by Shankar Jones MD at OR [facility] REMOVE CATARACT, INSERT LENS PROSTH 11/29/2012 EXTRACAPSULAR CATARACT REMOVAL WITH INTRAOCULAR LENS performed by Beau Leroy Jr., MD at OR [facility] RIGHT HEART CATH W/ O2 SAT AND CO Right 06/30/2020 RIGHT HEART CATH W/ O2 SAT AND CO performed by Gwyn Akins DO at CARDIAC LABS [facility] SACROILIAC JOINT INJECT W/GUIDANCE 12/25/2017 INJECTION SACROILIAC JOINT performed by Wong Cornelius DO at OR [facility] FAMILY HISTORY: Family History Problem Relation Age of Onset Heart Disorder Mother 1st [place] age 58 Stroke Mother Neurological Disorder Mother [...] Problems Grandmother (Maternal) Heart Disorder Grandfather (Maternal) [place] Stroke Grandfather (Maternal) Breast Cancer Grandmother (Paternal) Neurological Disorder Aunt (Unspecified) aneurysm Breast Cancer Aunt (Paternal) X4 SOCIAL HISTORY: Social History Tobacco Use Smoking status: Every Day Packs/day: 0.25 Years: 25.00 Pack years: 6.25 Types: Cigarettes Smokeless tobacco: Never Tobacco comments: 5-6 a day Vaping Use Vaping Use: Never used Substance Use Topics Alcohol use: No Drug use: Not Currently Types: Marijuana Comment: has not used in "quite a while" ALLERGIES: Dilaudid [hydromorphone hcl] and Environmental ROS: 14 systems were reviewed are otherwise negative unless noted in HPI. PHYSICAL EXAMINATION: Most Recent Vital Signs: There were no vitals filed for this visit. General -pleasant , NAD, well appearing. HEENT - normocephalic, atraumatic, no JVD Eyes - see below CV - RRR PULM - No increased work of breathing Abd- normal Ext - no edema bilaterally, no cyanosis Skin- no rashes nor ecchymosis Neuro - see below Psych - normal, not depressed Neuro-Ophthalmology exam Base Eye Exam Visual Acuity (Snellen - Linear) Right Left Dist sc 20/40 +2 20/25 -2 Dist ph sc 20/25 -1 Did not bring glasses Tonometry (Non-contact air puff, 10:47 AM) Right Left Pressure 13 12 Pupils Pupils React Right PERRL Minimal Left PERRL Minimal Visual Pretty (Counting fingers) Right Left Full Full Extraocular Movement Right Left Full Full Neuro/Psych Oriented x3: Yes Dilation Both eyes: 1.0% Mydriacyl, 2.5% Phenylephrine, 0.5% Proparacaine @ 10:49 AM Additional Tests Color Right Left Ishihara 6/8 7/8 Keratometry (Automated) K1 [place] K2 [place] Right 42.50 145 43 55 Left 42.25 52 43.25 142 Refraction Manifest Refraction (Auto) Sphere Cylinder [place] Dist [place] Right +0.25 +0.75 032 20/20 Left +0.25 +1.25 148 20/30 LABORATORY: Labs reviewed and pertinent findings are indicated below: No new Review of prior Radiology Studies: No imaging of the brain OCT Interpretation Optic Nerve - Nerve Fiber Layer Right: Normal Left: Normal Macula: Normal Line scans/Multi Color/Etc: Normal No prior for comparison No diagnosis found. No orders found. IMPRESSION / RECOMMENDATIONS: Jazmín Blevins is seen today for Eye pain Left eye.. Patient's complaint/.condition : left eye strain and movement pain Exam findings: nornal exam Etiology considered: question orbital inflammatory inflammatory syndrome, likely occipital neuralgia Plan: MRI, consider greater occipital nerve block No follow-ups on file. Fran Fernch DO Neuro-Ophthalmology, Neurology 01/09/2023 11:05 AM I have provided a significant and separately identifiable visit with today's procedure because (VDist) there were multiple complex differential diagnoses for this patient, including visual disturbances related to migraines, visual snow syndrome, retinal degeneration, nutritional retinal or optic nerve disease is, optic nerve disease documented in this encounter Nursing Notes * MARINE Martinez - 01/09/2023 11:18 AM EDT OCT image(s) of both eyes acquired and filed/scanned into chart. * Edna Red [facility] - 01/09/2023 10:33 AM EDT Jazmín Blevins is a 57 year old female who presents for eye exam. Last Visit: Visit date not found (in office), Visit date not found (telemedicine) She currently reports vision worse, all distances. OS with pressure and blurriness behind eye, worse in the morning. Denies flashes/floaters/double vision. More frequent headache. Recent hospitalization for gastrointestinal hemorrhage. Uses magnesium, cellcept, levoxyl. Dx lupus. Denies redness/pain. OU watery. Reports notable photosensitivity. States glasses are not helpful, did not bring today. Are you diabetic? NO. Current Ophthalmic Medications: Refresh PRN Last Visit: Visit date not found (in office), Visit date not found (telemedicine) Vision, Tonometry, current glass prescription and pupil check if done can be found in the ophth exam documented in this encounter Plan of Treatment Upcoming Encounters Date Type Specialty Care Team Description 01/10/2023 Office Visit Family Medicine Juana Nunez PA-C [address] [place] [id number] 01/23/2023 Appointment Radiology 03/16/2023 Office Visit Pulmonary Twin Hayden MD [address], [place] [id number] 07/03/2023 Telemedicine Ophthalmology Fran French DO [address] [place] [address] Scheduled Orders Name Type Priority Associated Diagnoses Orde r Schedule RETINA SCAN DIAGNOSTIC IMAGE, POSTERIOR Procedures Routine Other localized visual field defect, left eye Ordered: 01/09/2023 MRI ORBITS WITH/WITHOUT CONTRAST Medical Imaging Routine Pain around left eye Expected: 01/23/2023 (Approximate), Expires: 02/10/2024 Scheduled Procedures Name Priority Associated Diagnoses Date/Ti [...] Comments DISCUSS TOBACCO CESSATION (REFER TO SMARTSET #0700) 1965 COVID-19 Vaccine (#1) 1970 Alpha-1 Antitrypsin [...] this encounter Medical Devices Implanted Type Area Animal Care Provider Device Identifier Shelf Expiration Date Model / Serial / Lot Lens 22.0 Sa60at - [id number] Implanted:Qty: 1 on 10/15/2012 at OR [facility] Left: Eye [employer] 10/07/2016 SA60AT / [id number] / Lens 22.0 Sa60at - [id number] Implanted:Qty: 1 on 11/29/2012 at OR [facility] Right: Eye [employer] 03/31/2017 SA60AT / [id number] / Duraclip 11mm Repositionable - [id number] Implanted:Qty: 1 on 05/11/2022 by Jeffrey Weber MD at ENDOSCOPY [facility] [email or web address] [id number] 01/29/2024 [id number] / / [id number] documented as of this encounter Visit Diagnoses Diagnosis Pain around left eye- Primary Other localized visual field defect, left eye documented in this encounter Advance Directives Latest [...] the patient have Health Care Power of Director Of Product Design? No Care Teams Trading Assistant Relationship Specialty Start Date End Date Reggie Eddy, [facility] [place] [id number] PCP - General Internal Medicine 03/08/22 documented as of this encounter
--- OUTSIDE RECORDS SUMMARY | 2023-03-19 22:28 | External Medical Summary | Summary of Care ---
Author Name Unknown Organization [facility] Address [address] [place] [address] Phone [phone] Care Team Providers Care Director Clinical Operations Name Role Phone Reggie Eddy DO Primary Care Provid er Reason for Visit * Auth/Cert Specialty Diagnoses / Procedures Referred By Jodryn cano Referred To Contact Diagnoses GI bleed gi bleed Referral ID Status Reason Start Date Expiration Date Visits Re quested Visits Authorized [id number] Encounter Details Date Type Department Care Team Description 12/31/2022 - 01/03/2023 Hospital Encounter Advanced Acute Care Medical/Transplant Unit, [facility] 3rd Floor [address] [place] [address] Charlene Cohen DO [address] [place] [address] Miriam Sanches MD [address] [place] [address] Colonoscopy Allergies Active Allergy Reactions Severity Noted Date Comments Hydromorphone Hcl Itching Medium 11/09/2015 Environmental Low 05/04/2010 Pollen -asthmatic attacks documented as of this encounter (statuses as of 01/04/2023) Medications Medication Sig Dispensed Refills Start Date [...] 09/08/2022 Active Ambrisentan 10 MG Oral Tablet (Letairis)Indicatio [...] Active Additional Information Patient taking differently:3 mL [id number] PRN, Dyspnea, Reported on 12/21/2022 Mycophenolate Mofetil [...] before bedtime. 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 dsDNA borderline. [place] unlikely SLE. o 2012: Seen again by Rheum- Dr. Jung- photosensitive rash and raynauds. Borderline dsDNA. [place] likely SLE, though possible AIH could explain (+) MARY. HCQ discussed but wanted to avoid by GI. o [phone]: multiple hospitalizations for ascites; returned to Rheum [...] as of this encounter (statuses as of 01/04/2023) Resolved Problems Problem Noted Date Resolved Date [...] as of this encounter (statuses as of 01/04/2023) Immunizations Name Administration Dates Next Due HEP [...] Sign Reading Time Taken Comments Blood Pressure 101/68 01/03/2023 1:00 PM EDT Pulse 70 01/03/2023 1:00 PM EDT Temperature 36.7 C (98.1 F) 01/03/2023 1:00 PM ED T Respiratory Rate 20 01/03/2023 1:00 PM EDT Oxygen Saturation 96% 01/03/2023 1:00 PM EDT Inhaled Oxygen Concentration - - Weight 53.5 kg (118 lb) 01/02/2023 6:00 AM EDT Height 167.6 cm (5' 6") 12/31/2022 8:08 PM EDT Body Mass Index 19.05 12/31/2022 8:08 PM EDT documented in this [...] No 12/31/2022 documented as of this encounter Discharge Summaries * Miriam Sanches MD - 01/03/2023 11:59 AM EDT [facility] [address] Admission Date: 12/31/2022 Discharge Date: 01/03/2023 RECOMMENDED TO DO FOR NEXT PROVIDER(S): - follow-up for further signs of GI bleeding - repeat colonoscopy recommended for 5 years REASON(S) FOR MEDICATION CHANGE(S): - START omeprazole 20mg twice daily to prevent further bleeding DISPOSITION ON DISCHARGE: home Active Hospital Problems Diagnosis *Principal Diagnosis - Bright red blood per rectum Hematochezia Arteriovenous malformation (AVM) Lactic acidosis Anemia Other cirrhosis of liver (HCC) Pulmonary hypertension (HCC) COPD, group C, by GOLD 2017 classification (HCC) Resolved Hospital Problems No resolved problems to display. ADMISSION HISTORY & PHYSICAL EXAM (focused): (Per admit H&P) HPI Jazmín Blevins is 57-year-old female with history Chronic hypoxic respiratory failure 2/2 COPD on 2 L HS Autoimmune hepatitis complicated by cirrhosis Esophageal, gastric, and rectal varices Angiodysplastic lesions in colon Systemic lupus erythematosus Raynaud's disease Pulmonary hypertension Presents as transfer from [facility] for bright red blood per rectum. She was discharged from [facility] yesterday on 12/30. She was previoulsy admitted to the ICU for hemorrhagic shock, requiring pressor support. She was evaluated by Gastroenterology at this time and underwent both EGD and colonoscopy. Endoscopic evaluation did not show any active bleeding but showed evidence or varices and angiodysplastic lesions concerning for potential places of bleeding. Patient states when she left the hospital she felt fine. This morning she woke up in her normal state of health, made coffee, and went to the bathroom when she first noticed having a bloody bowel movement. States that it was painless. Endorses having 3 large bloody bowel movements in 2 hours along with development of lightheadedness prompting her to be seen at [facility]. She does not have any new abdominal pain associated with these bloody bowel movements. Endorses dull bandlike lower quadrant pain that has been there since prior admission. Denies black stools or hematemesis. No recent NSAID use. On arrival to [facility] she was found to be hypotensive and 80/60 with a hemoglobin drop from 10.7 to 8.8. She was given 2 units of packed red blood cells. She was put on Protonix and CTA did not see any active extravasation. She was transferred for GI evaluation. She wishes to be FULL code and in the event she is unable to make medication decisions for herself,she would like her Bipin to be contacted for further decisions. EXAM Most Recent Vital Signs: BP: 95 mmHg/65 mmHg (12/31/221957) 111/67, MAP 73 (2029) Pulse: 61 (12/31/221957) Temp: 36.61 C (12/31/221957) Resp: 18 (12/31/221957) SpO2: 96 % (12/31/221957) PHYSICAL EXAM General: Pleasant female lying in bed in no distress HEENT: Sclera white, extraocular muscles intact, oral mucosa pink and moist, wearing baseline 2 L oxygen nasal cannula Neck: supple Cardiovascular: Regular rate and rhythm, S1 and S2 present, no murmurs on auscultation Respiratory: Breath sounds were difficult to auscultate as there was poor airway entry, fine crackles auscultated in the right lower lung base Abdomen: Soft, slightly tender with deep palpation of the right lower quadrant, non-distended, normal bowel sounds Musculoskeletal: Loss of muscle tone Extremities: No lower extremity edema bilaterally, 5/5 strength in BLE, 2+ pulses Neuro: no focal deficits, good resident programs assistant strength Skin: No rashes, no skin lesions HOSPITAL COURSE (focused): Ms. Blevins was admitted for recurrent GI bleed following recent hospitalization for the same. Her hemoglobin remained stable during her hospital stay, despite ongoing GI blood loss. She was takento endoscopy for colonoscopy which revealed AVMs (as noted below) which were treated with APC. She s ubsequently underwent VCE which was negative for other causes of bleeding. Her symptoms subsided, and in discussion with GI, it was felt that her AVMs (despite not bleeding at the time of endoscopy) more likely the cause. I reviewed with her, these recommendations, and signs/symptoms to prompt moreimmediate return. She states that she feels well enough for discharge home, and will call her to pick her up. Exam on dc GEN: nad, resting comofortably HEENT: anictierc. Mmm CV: regular no murmurs PULM: cta b/l. Respirations non labored ABD: soft/ND. Mild mid abdominal ttp without rebound/guarding EXT: nt without edema NEURO: alert and conversant. No focal deficits appreciated PSYCH: normal affect Operations & Procedures: Colonoscopy 01/02 Complications: none significant Significant Lab and Imaging Results: Procedure: Colonoscopy (01/02/23) Impression: - The examined portion of the ileum was normal. - A few non-bleeding colonic angiodysplastic lesions. Treated with argon plasma coagulation (APC). - A single non-bleeding colonic angiodysplastic lesion. Treated with argon plasma coagulation (APC). - Internal hemorrhoids. Hgb on dc: 9.2 Results Pending at Discharge: none MEDICATION UPDATES AT DISCHARGE CHANGE how you take these medications INSTRUCTIONS Lactulose 10 GM/15ML solution Commonly known as: Constulose What changed: See the new instructions. TAKE 30 ML BY MOUTH 3 TIMES A DAY omeprazole 20 MG Cpdr Commonly known as: PriLOSEC What changed: when to take this Take 1 Capsule by mouth in the morning and 1 Capsule before bedtime. Spironolactone 100 MG Tablet Commonly known as: Aldactone What changed: how much to take how to take this when to take this TAKE 1 AND 1/2 TABLETS BY MOUTH EVERY DAY CONTINUE taking these medications INSTRUCTIONS albuterol HFA 108 (90 BASE) MCG/ACT inhaler Inhale 2 Puffs by mouth every 4 hours as needed for Shortness of Breath or Wheezing. albuterol-ipratropium 2.5-0.5 MG/3ML nebulizer solution Commonly known as: Duoneb Inhale 3 mL via nebulizer in the morning and 3 mL at noon and 3 mL in the evening and 3 mL before bedtime. ambrisentan 10 MG Tabs Commonly known as: Letairis TAKE 1 TABLET BY MOUTH 1 TIME A DAY. DO NOT HANDLE IF . DO NOT SPLIT, CRUSH, OR CHEW. AVOIDINHALATION AND CONTACT WITH SKIN OR EYES. Calcium Citrate 200 MG Tabs Take 400 mg by mouth 2 times a day. Ferrous Sulfate 325 (65 FE) MG Tablet Commonly known as: Feosol Take 1 Tab by mouth 2 times a day. fluticasone 50 MCG/ACT nasal spray Commonly known as: Flonase Administer 2 Sprays into nostril in the morning. fluticasone furoate-vilanterol 200-25 MCG/ACT Aepb Commonly known as: BREO ellipta Inhale 1 Puff by mouth in the morning. Gabapentin 300 MG Capsule Commonly known as: Neurontin Take 2 Capsules by mouth at bedtime. Take one cap by mouth at bedtime for two weeks, then may increase to 2 caps at bedtimes Klor-Con M20 20 MEQ Tbcr Generic drug: Potassium Chloride ER TAKE 2 TABLETS BY MOUTH IN THE MORNING. levothyroxine 150 MCG Tablet Commonly known as: Levoxyl TAKE 1 TABLET BY MOUTH DAILY IN THE MORNING. (AT LEAST 30 MIN PRIOR TO BREAKFAST OR OTHER MEDS) magnesium chloride ER 64 MG Tbec Commonly known as: Mag-64 Take by mouth 4 Tablets in the morning. mycophenolate 500 MG Tablet Commonly known as: Cellcept Take 1 Tablet by mouth in the morning and 1 Tablet before bedtime. Nadolol 40 MG Tablet Commonly known as: Corgard TAKE 1 TABLET BY MOUTH EVERY DAY IN THE MORNING Nebulizer Krupa For use with duoneb treatment oxygen Gas 2 liters at night, at rest, and with ambulation Spiriva HandiHaler 18 MCG inhalation Capsule Generic drug: tiotropium bromide Inhale 1 Capsule by mouth in the morning. . Do not swallow capsule.. Tadalafil (PAH) 20 MG Tabs Take 2 Tablets by mouth in the morning. Torsemide 20 MG Tablet Commonly known as: Demadex Take 2 Tablets by mouth in the morning. TAKE 2 TABLETS BY MOUTH EVERY DAY IN THE MORNING Strength: 20 mg. traMADol 50 MG Tablet Commonly known as: Ultram Take 2 Tablets by mouth every 6 hours as needed for Pain, Moderate. traZODone 50 MG Tablet Commonly known as: Desyrel Take 1 Tablet by mouth at bedtime. Vitamin C-Corwin Hips 1000 MG Tabs Take 1 Tablet by mouth in the morning. SCHEDULED FOLLOW-UP: Future Appointments Appt Date/Time Provider Department 01/04/2023 2:50 PM [facility]/09/[facility]23 10:00 AM Lakesha French DO [facility] 03/16/2023 10:40 AM Twin Hayden MD Pulmonary Medicine, [place] Other Information Indwelling Devices: LINES ALL Duration Peripheral Line Right Antecubital 20 Gauge 2 days Peripheral Line Left;Lower 22 Gauge 1 day Vital Signs (last recorded): Most Recent Systolic BP: 105 mmHg (01/03/23913) Most Recent Diastolic BP: 73 mmHg (01/03/23913) Pulse: 73 (01/03/23913) Resp: 20 (01/03/23913) Most Recent Temperature: 36.94 C (01/03/23913) Weight: 53.5 kg (118 lb) (01/02/23599) SpO2: 95 % (01/03/23913) O2 flow rate: 0 L/MIN (01/03/23599) Allergies: Dilaudid [hydromorphone hcl] and Environmental Activity: as tolerated Diet: regular diet Code status (this admission): Full Code Discussion of adv directives occurred with - adult: Patient Condition on Discharge: stable Isolation status: None Cognition: normal HOSPITAL CONSULTS ORDERED: GASTROENTEROLOGY CONSULT IP REFERRING PHYSICIAN: Ref: GAURI MENDOZA[[id number]] [address] [place] [address] (office) [phone] (fax) PRIMARY CARE PROVIDER: PCP: Reggie Eddy DO [address] [place] [address] (office) [phone] (fax) Note: To contact a physician responsible for this patients hospital care, please call [facility] [phone]. I spent a total of 40 minutes coordinating, documenting, and providing care for this patient excluding time spent in the performance of separately billed services. documented in this encounter Discharge Instructions * Discharge Instr - AVS* Miriam Sanches MD - 01/03/2023 12:07 PM EDT Discharge Date: 01/03/2023 The information below provides you with the instructions and the list of medications you need to betaking following discharge from the hospital. If you have any questions, please ask before leaving. If you have questions after leaving, you can reach us at the numbers below. YOUR HOSPITAL PROVIDERS: Discharging Provider: Miriam Sanches MD Provider Department: Hospital Medicine To reach this Provider Monday through Monday (8:00 AM to 4:30 PM) for any questions or test results: Call [phone] For after-hours concerns: Call [phone] and have your provider paged, or the provider director of graduate admissions for the Department of Hospital Medicine paged. Please note, the discharging provider will not be able to provide you with any medications refills.Please discuss these with your primary care provider. Worsening Symptoms: If you have new symptoms, or your symptoms get worse, please contact your Discharge Provider or Primary Care Provider (PCP). If these providers are not available, you can go to your local [facility] or [facility] Clinic during their business hours. In an EMERGENCY situation: Call [phone] or go to the nearest emergency room. A BRIEF SUMMARY OF YOUR HOSPITAL STAY: You came to the hospital with recurrent bleeding in your stools. Evaluated by Gastroenterology who performed a colonoscopy and treated some abnormal blood vessels, that were seen, and are suspected to have been the cause of your bleeding. A video capsule endoscopy was also performed, at the recommendation of the GI doctors, to evaluate for other possible causes of bleeding, however this study wasreported to be normal. Because her hemoglobin remained stable, and you did not have continued symptoms bleeding, you were determined to be stable for discharge home with outpatient follow-up. Operations & Procedures performed: Colonoscopy (01/02) Complications: none significant Inpatient test results that are pending at discharge: none Advance Directive Documented: Advance Directive Does the Patient have an Advance Directive? Not Addressed YOUR FOLLOW UP APPOINTMENTS: Primary Care Provider Information: PCP: Reggie Eddy DO [address] [place] [address] / [facility] [address] (office) [phone] (fax) An appointment was requested with your PCP (Reggie Eddy DO) within 7 days. (Please take this form to this visit with your primary care physician.) If you are not contacted with an appointment date and time please call. INSTRUCTIONS: Diet: Normal diet Activity: As tolerated Medication Changes - START omeprazole 20mg twice daily to prevent further bleeding Additional Instructions: - Call your primary care physician or seek medical attention if you have recurrent signs of bleeding or other new concerns about your health. * [facility] - AVS* Viki Dowell RN - 01/03/2023 1:22 PM EDT Outpatient Pedicab Driver: No, not applicable (01/02/23 1511) You do not have Home Care Services scheduled, if you should have questions or a medical problem please call your Physician or visit your nearest medical facility. documented in this encounter Progress Notes * Pamela Badillo, - 01/03/2023 7:21 AM EDT PROGRESS NOTE - Gastroenterology Service [place] [address] Name: Jazmín Blevins Date: 01/02/2023 Time: 7:21 AM SUBJECTIVE: Resting comfortably this am No complaints. ROS: Negative unless otherwise stated above. OBJECTIVE: Vital Signs Last 24 Hours: Systolic BP: Most Recent Systolic BP Av.6 mmHg Min: 85 mmHg Max: 139 mmHg Temperature: Most Recent Temperature Av.5 C Min: 36 C Max: 36.89 C Pulse: Pulse Av.6 Min: 59 Max: 85 Respirations: Resp Av.8 Min: 9 Max: 22 SpO2: SpO2 Av.4 % Min: 92 % Max: 100 % Constitutional: NAD. A&Ox3. CV: RRR. No murmurs. Normal S1/S2. Chest: CTA bilat. No wheezing or rhonchi. GI: Soft, NT/ND. BSx4. Extremities: No edema. Neurology: Moves all extremities. LABS: Reviewed in [facility]. Lab results within last 7 days (see chart for full results) Units 01/02/23 1821 01/02/23 0942 01/01/23 2213 01/01/23 1307 HGB g/dL 8.8* 9.4* 9.4* 8.9* IMAGING: Reviewed in [facility]. ASSESSMENT: Jazmín Blevins is a(n) 57 year old female with history of AIH complicated by cirrhosis with grade 1 varices, P Hg, COPD on chronic oxygen, pulmonary hypertension, Graves disease status post thyroidectomy presenting from [facility] for acute blood loss anemia. Recently admitted to [facility] found to have multiple AVMs treated with APC and rectal varices on colonoscopy on 12/23. She was transferred overnight from [facility] for painless hematochezia, status post [address] Abdo pelvis without evidence of active extravasation. Colonoscopy with evidence of AVMs that were treated with APC. RECOMMENDATIONS: VCE negative Can transition to oral PPI daily - limited mixed evidence of AVM bleeding prevention Thank you for the consult. We will remain available. I have discussed the case with my attending, Dr. Booth. Pamela Badillo DO Gastroenterology and Hepatology Fellow, PGY 4 [facility] Associated attestation - Rishi Booth DO - 01/03/2023 11:05 AM EDT I did not see the patient, but I have reviewed the trainee documentation and was readily available on date of service. * Pamela Badillo DO - 01/02/2023 7:53 AM EDT PROGRESS NOTE - Gastroenterology Service [facility] [place] [address] Name: Jazmín Blevins Date: 01/02/2023 Time: 7:53 AM SUBJECTIVE: Was able to take shower this morning ROS: Negative unless otherwise stated above. OBJECTIVE: Vital Signs Last 24 Hours: Systolic BP: Most Recent Systolic BP Av.9 mmHg Min: 82 mmHg Max: 112 mmHg Temperature: Most Recent Temperature Av.2 C Min: 35.61 C Max: 36.61 C Pulse: Pulse Av.7 Min: 55 Max: 73 Respirations: Resp Av Min: 18 Max: 18 SpO2: SpO2 Av.7 % Min: 92 % Max: 95 % Constitutional: NAD. A&Ox3. CV: RRR. No murmurs. Normal S1/S2. Chest: CTA bilat. No wheezing or rhonchi. GI: Soft, NT/ND. BSx4. Extremities: No edema. Neurology: Moves all extremities. LABS: Reviewed in [facility]. Lab results within last 7 days (see chart for full results) Units 01/01/23 2213 01/01/23 1307 01/01/23 0557 12/31/222024 HGB g/dL 9.4* 8.9* 8.1* 10.1* IMAGING: Reviewed in [facility]. ASSESSMENT: Jazmín Blevins is a(n) 57 year old female with history of AIH complicated by cirrhosis with grade 1 varices, P Hg, COPD on chronic oxygen, pulmonary hypertension, Graves disease status post thyroidectomy presenting from [facility] for acute blood loss anemia. Recently admitted to [facility] found to have multiple AVMs treated with APC and rectal varices on colonoscopy on 12/23. She was transferred overnight from [facility] for painless hematochezia, status post [address] Abdo pelvis without evidence of active extravasation. Last colonoscopy with AVM and rectal varices, likely source of bleeding. RECOMMENDATIONS: Plan for colonoscopy 01/02/2023 If negative, will consider VCE I have discussed the case with my attending, Dr. Booth. Pamela Badillo DO Gastroenterology and Hepatology Fellow, PGY 4 [facility] Associated attestation - Rishi Botoh DO - 01/02/2023 1:44 PM EDT I saw and evaluated the patient today. I have reviewed the trainee note and agree. * Miriam Sanches MD - 01/02/2023 7:32 AM EDT HOSPITAL MEDICINE PROGRESS NOTE [facility] [address] Name:Jazmín Blevins Location:[facility]/B Date: 01/02/2023 SUBJECTIVE: Pt seen and examined in bed this AM. No AE overnight. She tells me that she has not hadany blood BMs since yesterday early evening. She denies headache, dizziness, chest pain, shortness of breath, abdominal pain or nausea. She is eagerly anticipating endoscopy today. OBJECTIVE: Most Recent Vital Signs: BP: 83 mmHg/51 mmHg (01/02/23599) Pulse: 55 (01/02/23599) Temp: 36 C (01/02/23599) Resp: 18 (01/02/23599) SpO2: 92 % (01/02/23599) Vital Signs Last 24 Hours: Systolic BP: Most Recent Systolic BP Av mmHg Min: 82 mmHg Max: 112 mmHg Diastolic BP: Most Recent Diastolic BP Av.4 mmHg Min: 45 mmHg Max: 67 mmHg Temperature: Most Recent Temperature Av.2 C Min: 35.61 C Max: 36.61 C Pulse: Pulse Av.7 Min: 55 Max: 73 Respirations: Resp Av Min: 18 Max: 18 SpO2: SpO2 Av.7 % Min: 92 % Max: 95 % Wt Readings from Last 3 Encounters: 01/02/23 53.5 kg (118 lb) 12/31/22 46.3 kg (102 lb) 12/30/22 51.9 kg (114 lb 6.4 oz) GEN: nad, resting comofortably HEENT: anictierc. Mmm CV: regular no murmurs PULM: cta b/l. Respirations non labored ABD: soft/NT/ND + bs EXT: nt without edema NEURO: alert and conversant. No focal deficits appreciated PSYCH: normal affect LABS/IMAGING Personally reviewed. Notable for the following Hgb 9.4 (stable) Creat 0.7, K 3.1 ASSESSMENT/PLAN Jazmín Blevins is a 57 year old female with a PMHx of chronic hypoxemic respiratory failure 2/2COPD (on 2L oxygen at baseline), pulmonary HTN, raynauds, autoimmune hepatitis/cirrhosis with knownesophageal, gastric and rectal varices, and recent admission 12/21-12/30 with hemorrhagic shock (colonoscopy with AMVs which were non bleeding treated with Argon therapy) who was admitted to the hospital 12/31/2022 with further acute blood loss anemia 2/2 recurrent GIB. Principal Problem: Bright red blood per rectum Active Problems: COPD, group C, by GOLD 2017 classification (HCC) Pulmonary hypertension (HCC) Other cirrhosis of liver (HCC) Acute on chronic anemia Lactic acidosis Resolved Problems: * No resolved hospital problems. * #acute blood loss anemia 2/2 to GIB - discussed with GI - colonoscopy performed today by GI with evidence of AVMs s/p treatment. Will also plan to perform VCE to eval further - Hgb has been stable over last 24 hours. Will repeat this PM and again tomorrow morning (transfusefor hgb < 7) - Remain on IV PPI for now pending further GI recs #hx of autoimmune hepatitis, cirrhosis - continue TAX EXAMINING TECHNICIAN cellcept 500mg BID - hold aldactone 150mg daily and toresemide 20mg due to potential for worsening hemodynamics in thesetting of ongoing GI bleed #hx of pHTN - continue TAX EXAMINING TECHNICIAN nadolol as able, hold ambrisentan and tadalafil #hx of COPD - continue TAX EXAMINING TECHNICIAN breo ellipita daily along with incruse ellipita in place of TAX EXAMINING TECHNICIAN spiriva - continue albuterol prn #hypothyroidism - continue TAX EXAMINING TECHNICIAN levoxyl #chronic pain - continue TAX EXAMINING TECHNICIAN gabapentin 600 qHS along with tramadol 100 qh p4n moderate to severe pain FEN: Orders Placed This Encounter Procedures NPO After 2400 Except Meds PPX: holding chemical ppx in setting of GIB Full Code Discussion of adv directives occurred with - adult: Patient * Miriam Sanches MD - 01/01/2023 7:04 AM EDT HOSPITAL MEDICINE PROGRESS NOTE [facility] [address] Name:Jazmín Blevins Location:[facility] B730/B Date: 01/01/2023 SUBJECTIVE: Pt seen and examined in bed this AM. She tells me she is feeling okay. Continues to have bloody BM this AM. Denies rubio, dizziness, cp, sob, ap or nausea. No new concerns. OBJECTIVE: Most Recent Vital Signs: BP: 81 mmHg/41 mmHg (01/01/23599) Pulse: 55 (01/01/23599) Temp: 36.5 C (01/01/23599) Resp: 18 (09/24/23 0600) SpO2: 92 % (01/01/23 0600) Vital Signs Last 24 Hours: Systolic BP: Most Recent Systolic BP Av mmHg Min: 81 mmHg Max: 95 mmHg Diastolic BP: Most Recent Diastolic BP Av mmHg Min: 41 mmHg Max: 65 mmHg Temperature: Most Recent Temperature Av.6 C Min: 36.5 C Max: 36.61 C Pulse: Pulse Av Min: 55 Max: 61 Respirations: Resp Av Min: 18 Max: 18 SpO2: SpO2 Av % Min: 92 % Max: 96 % No intake or output data in the 24 hours ending 01/01/23 0704 Wt Readings from Last 3 Encounters: 12/31/22 46.3 kg (102 lb) 12/31/22 46.3 kg (102 lb) 12/30/22 51.9 kg (114 lb 6.4 oz) GEN: nad, resting comofortably HEENT: anictierc. Mmm CV: regular no murmurs PULM: cta b/l. Respirations non labored ABD: soft/NT/ND + bs EXT: nt without edema NEURO: alert and conversant. No focal deficits appreciated PSYCH: normal affect LABS/IMAGING Personally reviewed. Notable for the following CBC 6am 6.75>8.1<246 CBC 1pm: 6.6>8.9<260 Creat 1.1, BMP otherwise grossly wnl ASSESSMENT/PLAN Jazmín Blevins is a 57 year old female with a PMHx of chronic hypoxemic respiratory failure 2/2COPD (on 2L oxygen at baseline), pulmonary HTN, raynauds, autoimmune hepatitis/cirrhosis with knownesophageal, gastric and rectal varices, and recent admission 12/21-12/30 with hemorrhagic shock (colonoscopy with AMVs which were non bleeding treated with Argon therapy) who was admitted to the hospital 12/31/2022 with further acute blood loss anemia 2/2 recurrent GIB. Principal Problem: Bright red blood per rectum Active Problems: COPD, group C, by GOLD 2017 classification (HCC) Pulmonary hypertension (HCC) Other cirrhosis of liver (HCC) Acute on chronic anemia Lactic acidosis Resolved Problems: * No resolved hospital problems. * #acute blood loss anemia 2/2 to GIB - discussed with GI - plan on EGD and colonoscopy tomorrow (if negative may require VCE) - Will monitor for worsening symptoms and trend CBC q8h for now, with plan to to transfuse for hgb < 7 - Remain on IV PPI pending above evaluation - provide fluid resuscitation and monitor hemodynamics closely #hx of autoimmune hepatitis, cirrhosis - continue TAX EXAMINING TECHNICIAN cellcept 500mg BID - hold aldactone 150mg daily and toresemide 20mg due to potential for worsening hemodynamics in thesetting of ongoing GI bleed #hx of pHTN - continue TAX EXAMINING TECHNICIAN nadolol as able, hold ambrisentan and tadalafil #hx of COPD - continue TAX EXAMINING TECHNICIAN breo ellipita daily along with incruse ellipita in place of TAX EXAMINING TECHNICIAN spiriva - continue albuterol prn #hypothyroidism - continue TAX EXAMINING TECHNICIAN levoxyl #chronic pain - continue TAX EXAMINING TECHNICIAN gabapentin 600 qHS along with tramadol 100 qh p4n moderate to severe pain FEN: Orders Placed This Encounter Procedures Clear Liquid Diet PPX: holding chemical ppx in light of GIB Full Code Discussion of adv directives occurred with - adult: Patient 60 minutes time spent in care for patient today, more then half of which was spent in face to face evaluation, communication with patient/family and coordination of care on the floor: documented in this encounter H&P Notes * Naomie Magallanes MD - 01/02/2023 12:11 PM EDT Endoscopy Pre-Procedure Assessment Name: Jazmín Blevins Date: 01/02/2023 Time: 12:11 PM Procedure(s): Colonoscopy; with Indication(s) of evaluation of GI blood loss or iron- deficiency anemia Endoscopy Pre-Procedure Assessment: Prior to the procedure, the patient is identified. The patient's history, medications and allergieshave been reviewed. The patient is competent. The risks and benefits of the proposed procedure and the planned sedation have been discussed with the patient. All questions have been answered and informed consent for the procedure has been obtained. Prior to Admission medications Medication Sig Last Dose Discont. oxygen IN GAS 2 liters at night, at rest, and with ambulation 12/31/2022 Tadalafil (PAH) 20 MG Oral Tablet Take 2 Tablets by mouth in the morning. 12/31/2022 traMADol HCl 50 MG Oral Tablet (Ultram) Take 2 Tablets by mouth every 6 hours as needed for Pain, Moderate. 12/30/2022 Levothyroxine Sodium 150 MCG Oral Tablet (Levoxyl) TAKE 1 TABLET BY MOUTH DAILY IN THE MORNING. (ATLEAST 30 MIN PRIOR TO BREAKFAST OR OTHER MEDS) 12/31/2022 Nadolol 40 MG Oral Tablet (Corgard) TAKE 1 TABLET BY MOUTH EVERY DAY IN THE MORNING 12/31/2022 traZODone HCl 50 MG Oral Tablet (Desyrel) Take 1 Tablet by mouth at bedtime. 12/30/2022 Spironolactone 100 MG Oral Tablet (Aldactone) TAKE 1 AND 1/2 TABLETS BY MOUTH EVERY DAY Patient taking differently: Take 1.5 Tablets by mouth in the morning. TAKE 1 AND 1/2 TABLETS BY MOUTH EVERY DAY. 12/31/2022 Fluticasone Propionate 50 MCG/ACT Nasal Suspension (Flonase) Administer 2 Sprays into nostril in the morning. 12/31/2022 Mycophenolate Mofetil 500 MG Oral Tablet (Cellcept) Take 1 Tablet by mouth in the morning and 1 Tablet before bedtime. 12/31/2022 Ambrisentan 10 MG Oral Tablet (Letairis) TAKE 1 TABLET BY MOUTH 1 TIME A DAY. DO NOT HANDLE IF . DO NOT SPLIT, CRUSH, OR CHEW. AVOID INHALATION AND CONTACT WITH SKIN OR EYES. 12/31/2022 Fluticasone Furoate-Vilanterol 200-25 MCG/ACT Inhalation Aerosol Powder Breath Activated (BREO ellipta) Inhale 1 Puff by mouth in the morning. 12/31/2022 Torsemide 20 MG Oral Tablet (Demadex) Take 2 Tablets by mouth in the morning. TAKE 2 TABLETS BY MOUTH EVERY DAY IN THE MORNING Strength: 20 mg. 12/31/2022 Gabapentin 300 MG Oral Capsule (Neurontin) Take 2 Capsules by mouth at bedtime. Take one cap by mouth at bedtime for two weeks, then may increase to 2 caps at bedtimes 12/30/2022 Omeprazole 20 MG Oral Capsule Delayed Release (PriLOSEC) Take 1 Capsule by mouth in the morning. 12/31/2022 Spiriva HandiHaler 18 MCG Inhalation Capsule (tiotropium bromide) Inhale 1 Capsule by mouth in the morning. . Do not swallow capsule.. 12/30/2022 Klor-Con M20 20 MEQ Oral Tablet Extended Release (Potassium Chloride Gianna ER) TAKE 2 TABLETS BY MOUTH IN THE MORNING. 12/31/2022 Magnesium Chloride 64 MG Oral Tablet Delayed Release (Mag-64) Take by mouth 4 Tablets in the morning. 12/31/2022 Lactulose 10 GM/15ML Oral Solution (Constulose) TAKE 30 ML BY MOUTH 3 TIMES A DAY Patient taking differently: Take 30 mL by mouth as needed for Constipation. Past Week Calcium Citrate 200 MG Oral Tablet Take 400 mg by mouth 2 times a day. 12/31/2022 Ferrous Sulfate 325 (65 Fe) MG Oral Tablet (Feosol) Take 1 Tab by mouth 2 times a day. 12/31/2022 Ipratropium-Albuterol 0.5-2.5 (3) MG/3ML Inhalation Solution (Duoneb) Inhale 3 mL via nebulizer in the morning and 3 mL at noon and 3 mL in the evening and 3 mL before bedtime. Patient taking differently: Inhale 3 mL via nebulizer every 4 hours as needed for Dyspnea. Over 30 Days Albuterol Sulfate HFA 108 (90 Base) MCG/ACT Inhalation Aerosol Solution Inhale 2 Puffs by mouth every 4 hours as needed for Shortness of Breath or Wheezing. Over 30 Days Nebulizer Device For use with duoneb treatment Over 30 Days Ascorbic Acid (VITAMIN C-CORWIN HIPS) 1000 MG TABS Take 1 Tablet by mouth in the morning. Over 30 Days Review of patient's allergies indicates: Allergen Reactions Dilaudid [Hydromorphone Hcl] Itching Environmental Pollen -asthmatic attacks BP 99/62 | Pulse 67 | Temp 36.9 C (98.4 F) (Tympanic) | Resp 9 | Ht 1.676 m (5' 6") | Wt 53.5 kg (118 lb) | LMP 07/09/2012 | SpO2 95% | BMI 19.05 kg/m | BSA 1.58 m Physical Exam: Mental Status Examination: alert and oriented. Airway Examination: normal oropharyngeal airway and neck mobility. Respiratory Examination: clear to auscultation. CV Examination: normal. ASA Grade: II - A patient with mild systemic disease. Abdomen: negative This patient has undergone a preprocedural evaluation. A determination has been made to proceed with the planned procedure under [facility] procedural guidelines and the [facility] Non-Emergent, Elective Medical Services and Treatment Recommendations (published on 07-16-19). The community and hospital prevalence of COVID-19 has been discussed as well as this patient's specific risks associated with SARS-CoV-19 infection. Based upon the clinical acuity and patient-specific care considerations, this procedure is deemed a Tier III - Procedures at little or no risk for clinical deterioration (example - cosmetic). After reviewing the risks and benefits, the patient is deemed in satisfactory condition to undergo the procedure. The anesthesia plan is to use general anesthesia. Naomie Magallanes MD 01/02/2023 * Re Howell DO - 12/31/2022 8:02 PM EDT Images from the original note were not included. [facility] B730/B PRESENTING PROBLEM: Bright red blood per rectum HPI: Jazmín Blevins is 57-year-old female with history Chronic hypoxic respiratory failure 2/2 COPD on 2 L HS Autoimmune hepatitis complicated by cirrhosis Esophageal, gastric, and rectal varices Angiodysplastic lesions in colon Systemic lupus erythematosus Raynaud's disease Pulmonary hypertension Presents as transfer from [facility] for bright red blood per rectum. She was discharged from [facility] yesterday on 12/30. She was previoulsy admitted to the ICU for hemorrhagic shock, requiring pressor support. She was evaluated by Gastroenterology at this time and underwent both EGD and colonoscopy. Endoscopic evaluation did not show any active bleeding but showed evidence or varices and angiodysplastic lesions concerning for potential places of bleeding. Patient states when she left the hospital she felt fine. This morning she woke up in her normal state of health, made coffee, and went to the bathroom when she first noticed having a bloody bowel movement. States that it was painless. Endorses having 3 large bloody bowel movements in 2 hours along with development of lightheadedness prompting her to be seen at [facility]. She does not have any new abdominal pain associated with these bloody bowel movements. Endorses dull bandlike lower quadrant pain that has been there since prior admission. Denies black stools or hematemesis. No recent NSAID use. On arrival to [facility] she was found to be hypotensive and 80/60 with a hemoglobin drop from 10.7 to 8.8. She was given 2 units of packed red blood cells. She was put on Protonix and CTA did not see any active extravasation. She was transferred for GI evaluation. She wishes to be FULL code and in the event she is unable to make medication decisions for herself,she would like her Bipin to be contacted for further decisions. Subjective Patient's past history, medications, and allergies were reviewed. Objective Physical Exam Most Recent Vital Signs: BP: 95 mmHg/65 mmHg (12/31/221957) 111/67, MAP 73 (2029) Pulse: 61 (12/31/221957) Temp: 36.61 C (12/31/221957) Resp: 18 (12/31/221957) SpO2: 96 % (12/31/221957) PHYSICAL EXAM General: Pleasant female lying in bed in no distress HEENT: Sclera white, extraocular muscles intact, oral mucosa pink and moist, wearing baseline 2 L oxygen nasal cannula Neck: supple Cardiovascular: Regular rate and rhythm, S1 and S2 present, no murmurs on auscultation Respiratory: Breath sounds were difficult to auscultate as there was poor airway entry, fine crackles auscultated in the right lower lung base Abdomen: Soft, slightly tender with deep palpation of the right lower quadrant, non-distended, normal bowel sounds Musculoskeletal: Loss of muscle tone Extremities: No lower extremity edema bilaterally, 5/5 strength in BLE, 2+ pulses Neuro: no focal deficits, good resident programs assistant strength Skin: No rashes, no skin lesions STUDIES: Labs and other studies reviewed with pertinent findings noted below: Lab results within last 7 days (see chart for full results) Units 12/31/22202412/31/22 1510 12/30/22 0931 HGB g/dL 10.1* 8.8* 10.7* HCT % 36.8 30.1* 36.7 WBC K/uL 9.64 9.97 8.11 PLT K/uL 297 329 285 Lab results within last 7 days (see chart for full results) Units 12/31/22202412/31/22 1510 09/22/23 0931 Sodium mmol/L 135 135 138 Potassium mmol/L 4.1 4.4 4.0 Chloride mmol/L 99 101 102 CO2 mmol/L 24 23 26 BUN mg/dL 12 12 6 Creatinine mg/dL 0.9 1.0 0.9 Lactate 3[address] ABD/Pelvis: IMPRESSION: 1. Suspected resolving atelectasis or pneumonia [...] in the setting of pelvic congestion syndrome. Endoscopic evaluation history EGD 12/21/2022: Impression: - Esophageal plaques were found, consistent with [...] severe acute anemia found on this endoscopy. Colonoscopy 12/23/2022: Impression: - Multiple non-bleeding colonic angiodysplastic lesions. Treated with argon plasma coagulation (APC). - One 3 mm polyp in the cecum, removed with a cold biopsy forceps. Resected and retrieved. - Previous stent in the transverse colon. - Erythematous mucosa in the ascending colon. - Rectal varices. - Non-bleeding internal hemorrhoids. - Hemorrhoids found on perianal exam. Assessment and Plan IMPRESSION: Principal Problem: Bright red blood per rectum Active Problems: COPD, group C, by GOLD 2017 classification (HCC) Pulmonary hypertension (HCC) Other cirrhosis of liver (HCC) Acute on chronic anemia Resolved Problems: * No resolved hospital problems. * DIFFERENTIAL AND PLAN: Jazmín Blevins is 57-year-old female with history of multiple autoimmune diseases including hepatitis, SLE, and Raynaud's disease presents for recurrent bright red blood per rectum concerning foracute lower GI bleed. Hematochezia Patient presenting from [facility] due to hematochezia and 2 g hemoglobin drop now s/p 2 uPRBC. Was recently admitted for hemorrhagic shock, questionable hemodynamic status prior to transfer at [facility]. Upon arrival patient feels much better after receiving blood and has remained HDS. RepeatCBC showed appropriate correction after transfusion with a hemoglobin of 10.1. We will continue to monitor for further bloody BMs throughout the evening. - GI consulted, recommended clear liquid diet and NPO after 2400 - if patient decompensates we will consider CTA - continue pantoprazole infusion - transfuse if hemoglobin less than 7 Lactic acidosis Lactate was 3.7 prior to transfer in the setting of recurrent bleed. Repeat lactate showed to decrease at 2.2, almost cleared. Patient will continue getting fluids through pantoprazole infusion. Planto recheck lactate with AM labs. Pulmonary hypertension: TAX EXAMINING TECHNICIAN nadolol 40 mg daily, hold Ambrisentan and tadalafil Cirrhosis: Hold Aldactone 150 mg daily, hold torsemide 20 mg due to possibility of decompensation. Patient states that she does not take lactulose daily and hazy for constipation. Autoimmune hepatitis: TAX EXAMINING TECHNICIAN CellCept 500 mg twice daily Sleep disorder: Trazodone 50 mg HS Chronic pain: Tramadol 100 mg q.6h p.r.n. for moderate to severe pain. TAX EXAMINING TECHNICIAN gabapentin 600 mg HS Hypothyroidism: levothyroxine 150 mcg daily GERD: Omeprazole 20 mg in the morning COPD: Breo Ellipta daily PHARMACOLOGIC VTE PROPHYLAXIS:This patient does not have an active medication from one of the medication groupers. Hold for now as patient is bleeding CODE STATUS: Full Code EXPECTED DISCHARGE DATE: No information available This patient was discussed with Dr. Charlene Cohen at the time of admission. Associated attestation - Charlene Cohen DO - 12/31/2022 11:11 PM EDT I saw and evaluated the patient today. I have reviewed the trainee note and agree. Jazmní Blevins is a 57 year old F with chronic hypoxemic respiratory failure 2/2 COPD on 2L oxygen HS, autoimmune hepatitis complicated by cirrhosis, esophageal, gastric and rectal varices, angiodysplatric lesions in colon, SLE, Raynaud's and pulmonary hypertension who was D/C from [facility] 12/[place] afterbeing admitted to ICU For hemorrhagic shock. She underwent both EGD and colonoscopy during her staywhich showed esophagitis for which she was treated and colonoscopy revealed AVMs which were non-bleeding however were also tx with Argon therapy. She left the hospital feeling well. Today, patient had 3-4 large bloody bowel movements with lightheadedness which prompted her visit to [facility]. [facility], she was initially hypotensive with pressures 80s/60s. Hemoglobin was noted to be 8.8 down from 10.7. She was given 2 units of PRBC and transferred to [facility]. On arrival, patient Is stable. BP 90s/60s, HR 60s. Hemoglobin 10.1. She feels well. Has had one episode of bloody stool since being here. - admit to medicine - continue IV PPI BID for now - CLD for now, NPO after 2400 - formal GI consult. - continue BB - hold all pulmonary hypertension medications Rest of plan per Dr. Howell's note. documented in this encounter Procedure Notes * Rishi Booth DO - 01/02/2023 12:12 PM EDTAssociated Order(s): COLONOSCOPY [facility] Patient Name: Jazmín Blevins Procedure Date: 01/02/2023 12:12 PM Date of : 1965 Admit Type: Inpatient Note Status: Finalized Date of : 1965 Admit Type: Inpatient Age: 57 Room: Endo - Room 4 Gender: Female Note Status: Finalized Procedure: Colonoscopy Indications: Hematochezia Providers: Naomie Magallanes MD (Doctor), Jasper Mckeon MD (Fellow) Patient Profile: This is a 57 year old female. Refer to note in patient chart for documentation of history and physical. Referring MD: Rishi Booth DO, Lauren Greene Medicines: Monitored Anesthesia Care Complications: No immediate complications. Procedure: Pre-Anesthesia Assessment: - Jayess Protocol: - Pre-procedure Verification: Prior to the procedure, the patient's identity was verified by full name, date of and medical record number. The patient's identity was verified on all pertinent medical records, including History and Physical and nursing assessment. Also prior to the procedure, a History and Physical was performed, and patient medications, allergies and sensitivities were reviewed. The patient's tolerance of previous anesthesia was reviewed. The patient is competent. The risks and benefits of the procedure and the sedation options and risks were discussed with the patient. All questions were answered and informed consent was obtained. - Time-Out: Prior to the start of the procedure, the patient's identification, proposed procedure, accurate signed consent, correctly labeled images and records, and need for prophylactic antibiotics were verified by the physician, the nurse and the sea shell gatherer in the pre-procedure area in the procedure room. - The supervising physician was present for the entire procedure from scope insertion until scope withdrawal. After I obtained informed consent, the scope was passed under direct vision. All instruments were visually inspected immediately before and after removal from the patient to ensure they are fully intact. Throughout the procedure, the patient's blood pressure, pulse, and oxygen saturations were monitored continuously. The PCF-H180J Colonoscope([id number]) was introduced through the anus and advanced to the terminal ileum. The quality of the bowel preparation was good. Findings & Specimens: The terminal ileum appeared normal. A few small localized angiodysplastic lesions without bleeding were found in the ascending colon. Coagulation for bleeding prevention using argon plasma at 0.8 liters/minute and 35 arenas was successful. A single medium-sized localized angiodysplastic lesion without bleeding was found in the sigmoid colon. Coagulation for bleeding prevention using argon plasma at 0.8 liters/minute and 35 arenas was successful. Internal hemorrhoids were found during retroflexion. The hemorrhoids were medium-sized. Impression: - The examined portion of the ileum was normal. - A few non-bleeding colonic angiodysplastic lesions. Treated with argon plasma coagulation (APC). - A single non-bleeding colonic angiodysplastic lesion. Treated with argon plasma coagulation (APC). - Internal hemorrhoids. - No specimens collected. Recommendation: - Return patient to hospital brady for ongoing care. - Repeat colonoscopy. Naomie Magallanes MD 01/02/2023 1:19:52 PM This report has been signed electronically. Jasper Mckeon MD documented in this encounter Consult Notes * Pamela Badillo DO - 01/01/2023 7:08 AM EDTAssociated Order(s): GASTROENTEROLOGY CONSULT IP CONSULT - Gastroenterology [facility] [id number] Name: Jazmín Blevins Location: [facility] B730/B Date: 01/01/2023 Time: 7:08 AM REQUESTING SERVICE: Medicine REASON FOR CONSULT: "Concern for lower GI bleed " HPI: Jazmín Blevins is a 57 year old female with hx of pmhx of Bx proven AIH (2010) c/b Cirrhosis (Grade 1 EV 2022 on nadalol, PHG,) COPD on chronic oxygen, Pulmonary hypertension, Grave's disease s/p thyroidectomy with post operative hypothyroidism. She presents from [facility] for recurrent acute on chronic blood loss anemia. Recently admitted to [facility] for pressor requirement in the setting of shock from 12/21 concerning for hemorrrhagic shock concerning for GI bleed. She underwent EGD which revealed small varices, but did not show any acute bleeding but did demonstrate esophagitis for which shewas treated. She underwent colonoscopy which revealed AVMs that were nonbleeding however treated with argon therapy as well as rectal varices. On this admission, Presenting for painless BRBPR and lightheadness. She received 2 units of PRBC prior to transfer. She endorses 6 episodes of hematochezia the day following discharge. No NSAID use no other change in medication. CTA Abd PELvis performed at [facility] did not reveal active extravasation. Not a TIPs candidate due to pulm HTN. HISTORY: Past Medical History: Past Medical History: Diagnosis Date Arthritis Asthma Autoimmune hepatitis (HCC) Cirrhosis (HCC) Esophageal varices in cirrhosis (HCC) Esophageal varices without mention of bleeding in diseases classified elsewhere 12/19/2012 upper endoscopy Hemorrhage of gastrointestinal tract, unspecified 12/20/2012 colonoscopy Hiatal hernia Laryngospasm Portal hypertensive gastropathy (HCC) Postsurgical hypothyroidism Schatzki's ring Sialoadenitis Systemic lupus erythematosus (HCC) diagnosis in question Toxic diffuse goiter Past Surgical History: Past Surgical History: Procedure Laterality Date BREAST LESION,OTHER,EXCISION Right 05/09/2017 benign excisional biopsy COLONOSCOPY, DIAGNOSTIC (RECTUM) 12/20/2012 COLONOSCOPY FLEXIBLE PROXIMAL DIAGNOSTIC performed by Naomie Magallanes MD at ENDOSCOPY [facility] COLONOSCOPY, DIAGNOSTIC (RECTUM) N/A 05/10/2016 COLONOSCOPY FLEXIBLE PROXIMAL DIAGNOSTIC performed by Jeffrey Weber MD at [facility] COLONOSCOPY, DIAGNOSTIC (RECTUM) N/A 05/11/2022 COLONOSCOPY FLEXIBLE PROXIMAL DIAGNOSTIC performed by Jeffrey Weber MD at [facility] COLONOSCOPY, DIAGNOSTIC (RECTUM) N/A 12/23/2022 COLONOSCOPY FLEXIBLE PROXIMAL DIAGNOSTIC performed by Luisito Reinoso DO at [facility] EGD, FLEXIBLE, DIAGNOSTIC 05/30/2012 UPPER GI ENDOSCOPY DIAGNOSTIC performed by Cipriano Butler MD at [facility] EGD, FLEXIBLE, DIAGNOSTIC 12/19/2012 UPPER GI ENDOSCOPY DIAGNOSTIC performed by Krupa Robledo DO at [facility] EGD, FLEXIBLE, DIAGNOSTIC N/A 03/21/2014 ESOPHAGOGASTRODUODENOSCOPY (EGD), FLEXIBLE, TRANSORAL, DIAGNOSTIC performed by Axel English MDa ENDOSCOPY [facility] EGD, FLEXIBLE, DIAGNOSTIC N/A 12/18/2014 ESOPHAGOGASTRODUODENOSCOPY (EGD), FLEXIBLE, TRANSORAL, DIAGNOSTIC performed by Jeffrey Weber MD at [facility] EGD, FLEXIBLE, DIAGNOSTIC N/A 05/10/2016 ESOPHAGOGASTRODUODENOSCOPY (EGD), FLEXIBLE, TRANSORAL, DIAGNOSTIC performed by Jeffrey Weber MD at [facility] EGD, FLEXIBLE, DIAGNOSTIC 06/11/2018 hiatal hernia, repeat 3 yrs/ESOPHAGOGASTRODUODENOSCOPY (EGD), FLEXIBLE, TRANSORAL, DIAGNOSTIC performed by Adelaida Sood MD at ENDOSCOPY [facility] EGD, FLEXIBLE, DIAGNOSTIC N/A 11/01/2019 ESOPHAGOGASTRODUODENOSCOPY (EGD), FLEXIBLE, TRANSORAL, DIAGNOSTIC performed by Michael Bar MD at [facility] EGD, FLEXIBLE, DIAGNOSTIC N/A 05/11/2022 ESOPHAGOGASTRODUODENOSCOPY (EGD), FLEXIBLE, TRANSORAL, DIAGNOSTIC performed by Jeffrey Weber MD at [facility] EGD, FLEXIBLE, DIAGNOSTIC N/A 12/21/2022 ESOPHAGOGASTRODUODENOSCOPY (EGD), FLEXIBLE, TRANSORAL, DIAGNOSTIC performed by Wilmer Bhatia MD at [facility] EXC BREAST LESION RADMARK Right 05/09/2017 EXCISION OF BREAST LESION RADIOLOGICAL MARKER performed by Vicky Bahena MD at OR [facility] INFORMATION 1997 bone spur/cyst & ganglia removal left foot x2 INJECT DX/THER SUBSTANCE INTERLAMINAR LUMBAR/SACRAL W IMAGE GUIDE 07/22/2021 INJECTION SPINE LUMBAR OR SACRAL performed by Wong Cornelius DO at OR [facility] INJECT DX/THER SUBSTANCE INTERLAMINAR LUMBAR/SACRAL W IMAGE GUIDE 11/16/2021 INJECTION SPINE LUMBAR OR SACRAL performed by Wong Cornelius DO at OR [facility] INJECT DX/THER SUBSTANCE INTERLAMINAR LUMBAR/SACRAL W IMAGE GUIDE 06/15/2022 INJECTION SPINE LUMBAR OR SACRAL performed by Wong Cornelius DO at OR [facility] INJECT DX/THER SUBSTANCE INTERLAMINAR LUMBAR/SACRAL W IMAGE GUIDE 11/09/2022 INJECTION SPINE LUMBAR OR SACRAL performed by Wong Cornelius DO at OR [facility] IR BIOPSY 07/02/2012 TRANSCATHETER BIOPSY performed by Fabian Larry MD at RADIOLOGY [facility] L-/S-SPINE PARAVERTEBRAL FACET INJ,1 LEVEL 02/15/2018 L-/S-SPINE PARAVERTEBRAL FACET INJ, 1 LEVEL performed by Wong Cornelius DO at OR [facility] L-/S-SPINE PARAVERTEBRL FACET INJ,2 LEVELS 02/15/2018 L-/S-SPINE PARAVERTEBRAL FACET INJ, 2 LEVELS performed by [place] Brandi Cornelius DO at OR [facility] LAPAROSCOPY; CHOLECYSTECTOMY 03/23/10 Dr Ingram LAPAROSCOPY;RMV ADNEXAL STRUCT Bilateral 03/19/2021 LAPAROSCOPIC OOPHORECTOMY AND OR SALPINGECTOMY performed by Randi Mukherjee DO at OR [facility] LIGATE/CUT OVIDUCT(S) 1993 Tubal Ligation LUMBAR / SACRAL EPIDURAL, SINGLE LEVEL 03/05/2018 INJECTION TRANSFORAMINAL EPIDURAL LUMBAR OR SACRAL performed by Wong Cornelius DO at OR [facility] MISCELLANEOUS ORDER ([facility] ONLY) 2001 torn retina repair at [facility] EYE NEEDLE BIOPSY OF LIVER 03/23/10 Dr Ingram REMOVAL OF FOOT LESION Left REMOVAL OF KNEE CARTILAGE 1994 bilateral REMOVAL OF THYROID GLAND REMOVE CATARACT, INSERT LENS PROSTH 10/15/2012 EXTRACAPSULAR CATARACT REMOVAL WITH INTRAOCULAR LENS performed by Shankar Jones MD at OR [facility] REMOVE CATARACT, INSERT LENS PROSTH 11/29/2012 EXTRACAPSULAR CATARACT REMOVAL WITH INTRAOCULAR LENS performed by Beau Leroy Jr., MD at OR [facility] RIGHT HEART CATH W/ O2 SAT AND CO Right 06/30/2020 RIGHT HEART CATH W/ O2 SAT AND CO performed by Gwyn Akins DO at CARDIAC LABS [facility] SACROILIAC JOINT INJECT W/GUIDANCE 12/25/2017 INJECTION SACROILIAC JOINT performed by Wong Cornelius DO at OR [facility] Social History: Social History Tobacco Use Smoking status: Every Day Packs/day: 0.25 Years: 25.00 Pack years: 6.25 Types: Cigarettes Smokeless tobacco: Never Tobacco comments: 5-6 a day Vaping Use Vaping Use: Never used Substance Use Topics Alcohol use: No Drug use: Not Currently Types: Marijuana Comment: has not used in "quite a while" Family History: Family History Problem Relation Age of Onset Heart Disorder Mother 1st [place] age 58 Stroke Mother Neurological Disorder Mother [...] Problems Grandmother (Maternal) Heart Disorder Grandfather (Maternal) [place] Stroke Grandfather (Maternal) Breast Cancer Grandmother (Paternal) Neurological Disorder Aunt (Unspecified) aneurysm Breast Cancer Aunt (Paternal) X4 Allergies: Dilaudid [hydromorphone hcl] and Environmental ROS: Reviewed, negative except as above. PHYSICAL EXAMINATION: Most Recent Vital Signs: BP: 81 mmHg/41 mmHg (01/01/23599) Pulse: 55 (01/01/23599) Temp: 36.5 C (01/01/23599) Resp: 18 (01/01/23599) SpO2: 92 % (01/01/23599) Vital Signs Last 24 Hours: Systolic BP: Most Recent Systolic BP Av mmHg Min: 81 mmHg Max: 95 mmHg Temperature: Most Recent Temperature Av.6 C Min: 36.5 C Max: 36.61 C Pulse: Pulse Av Min: 55 Max: 61 Respirations: Resp Av Min: 18 Max: 18 SpO2: SpO2 Av % Min: 92 % Max: 96 % General: Patient is awake, alert, oriented x 3, and in no acute distress Head and face: normocephalic and atraumatic Eyes: PERRLA; no scleral icterus; normal lids Neck: Supple. Good ROM Heart: RRR, S1 and S2 audible. No murmurs appreciated Respiratory: CTA. No wheezes, equal and bilateral chest rise Abdomen: Soft, non-tender. Bowel sounds x 4. Extremities: No cyanosis, or clubbing. No edema Skin: Warm, dry, intact. Neuro: Alert and oriented x 3. Speech appropriate, moves all extremities. LABS: Reviewed in [facility] Lab results within last 7 days (see chart for full results) Units 01/01/23 0557 12/31/22202412/31/22 1510 12/30/22 0931 HGB g/dL 8.1* 10.1* 8.8* 10.7* Lab results within last 7 days (see chart for full results) Units 01/01/23 0557 12/31/22202412/31/22 1510 Sodium mmol/L 137 135 135 Potassium mmol/L 4.1 4.1 4.4 Chloride mmol/L 102 99 101 CO2 mmol/L 24 23 BUN mg/dL 17 12 12 Creatinine mg/dL 1.1* 0.9 1.0 IMAGES: Reviewed in [facility] CTA ABD/PELVIS Narrative: PROCEDURE INFORMATION: Exam: CTA Abdomen and Pelvis With Contrast Exam date and time: 12/31/2022 3:18 PM Age: 57 years old Clinical indication: Other: Rectal bleeding; Prior surgery; Surgery date: <1 month; Surgery type: Recent polypectomy; Additional info: Concern for gi bleed, recent polypectomy TECHNIQUE: Imaging protocol: Computed tomographic angiography of the abdomen and pelvis with contrast. Exam focused on the arteries. 3D rendering (Not supervised by radiologist): MIP and/or 3D reconstructed images were created by the technologist. Radiation optimization: All CT scans at this facility use at least one of these dose optimization techniques: automated exposure control; mA and/or kV adjustment per patient size (includes targeted exams where dose is matched to clinical indication); or iterative reconstruction. Contrast material: OPTIRAY 350; Contrast volume: 100 ml; Contrast route: INTRAVENOUS (IV); REPORTING DATA: Count of CT and Cardiac NM exams in prior 12 months: This patient has received [address] and 0 known cardiac nuclear medicine studies in the 12 months prior to the current study. COMPARISON: CTA ABD/PELVIS 12/20/2022 7:21 PM FINDINGS: Lungs: Nodular density at the left [...] Possible hemorrhoids identified in the lower rectum. Impression: IMPRESSION: 1. Suspected resolving atelectasis or pneumonia [...] in the setting of pelvic congestion syndrome. THIS DOCUMENT HAS BEEN ELECTRONICALLY SIGNED BY LAKESHA MADDEN MD ENDOSCOPIC Hx: Reviewed in [facility] and relevant for : EGD 12/21/22 Impression: - Esophageal plaques were found, consistent with [...] severe acute anemia found on this endoscopy. Colonoscopy 12/23/2022 Impression: - Multiple non-bleeding colonic angiodysplastic lesions. Treated with argon plasma coagulation (APC). - One 3 mm polyp in the cecum, removed with a cold biopsy forceps. Resected and retrieved. - Previous stent in the transverse colon. - Erythematous mucosa in the ascending colon. - Rectal varices. - Non-bleeding internal hemorrhoids. - Hemorrhoids found on perianal exam. 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 Recently admitted to [facility] found to have multiple AVMs treated with APC and rectal varices on colonoscopy on 12/23. She was transferred overnight from [place] for painless hematochezia, status post [address] Abdo pelvis without evidence of active extravasation. Recent EGD with grade 1 varices, likely not the source of acute on chronic bleeding. Likely due to recurrent AVMs or rectal varices versus diverticular bleeding. Cannot rule out small bowel etiology RECOMMENDATIONS/PLAN: CLD Colonoscopy prep ordered for tonight Agree with resuscitation per primary NPO after MN Plan for colonoscopy 01/02/2023 If negative, will plan for VCE I have discussed the case with my attending, Dr. Villegas. Pamela Badillo DO Gastroenterology and Hepatology Fellow, PGY 4 [facility] Associated attestation - Ellie Villegas MD - 01/01/2023 9:30 AM EDT I did not see the patient, but I have reviewed the trainee documentation and was readily available on date of service. documented in this encounter Nursing Notes * JOSE LUIS Santana - 01/02/2023 4:05 PM EDT Seen by staff for capsule endoscopy. Consent obtained. Pt connected to the sensors and the data recorder. Swallowed the capsule without difficulty. Diet instructions and test instructions given in writing to pt.and reviewed with pt and her nurse.Verbalizes understanding. Instructed we would pick uprecorder in the am. As required by the [place] Act 112- Patient Test Results Information Act the patient was provided with an Act 112 pamphlet and provided the clinic number to call in regards to diagnostic results. * Livia Kwong RN - 01/02/2023 1:42 PM EDT Per verbal order, the physician has examined the patient, prescribed and verified the charted medication, and certified that she is recovered and may return to the nursing brady. DISCHARGE PROGRESS NOTE - ENDOSCOPY [address] [address] Name: Jazmín Blevins Location: [facility]AM/Endo Date: 01/02/2023 Time: 1:43 PM Patient is discharged under the care of : transport Report called to Inpatient unit 73Quin Godinez RN Means of transportation: stretcher Bronchoscopy: N/A Oxygen support: N/A * Christa Plata RN - 01/02/2023 12:52 PM EDT Procedure being completed under general anesthesia. Please see anesthesia record for medications and vital signs. * Janell Mares RN - 01/02/2023 11:28 AM EDT Patient does not meet criteria for testing. * Krupa Gottlieb LPN - 12/31/2022 10:39 PM EDT Resident arrived via ambulance stretcher. She stood and pivoted onto with no assistance. She is alert and oriented times 4. She has had no complaints of pain or discomfort. She can ambulate unassisted in room. * Krupa Gottlieb LPN - 12/31/2022 9:00 PM EDT Dual Licensed Skin Assessment completed by ss and mihaela. The patient is/has a N/A Skin Breakdown (includes non blanchable erythema): documented in this encounter Miscellaneous Notes * Ancillary Progress Note - Viki Dowell RN - 01/03/2023 1:35 PM EDT ADULT CARE MANAGEMENT - DISCHARGE NOTE [facility] [address] Name: Jazmín Blevins Location: [facility] B323/A Date: 01/03/2023 Time: 1:35 PM The following coordination of care and discharge plan has been coordinated with the care team, patient, family and/or caregiver according to the patients needs and preferences. Discharge Discharge Second Notice Important Message from Medicare delivered: Not Applicable (01/03/23 1202) Was Caregiver/Family/Facility contacted regarding discharge: Yes (01/03/23 1202) Discharge Transportation: Family/Friends drive (01/03/23 1202) Date of scheduled discharge transportation: 01/03/23 (01/03/23 1202) Time of scheduled discharge transportation: 1400 (01/03/23 1320) Final D/C Plan - Complete at time of D/C Final Discharge Plan (Complete only at time of Discharge): Home - Self Care (01/03/23 1320) Narrative: CM met with pt at bedside and offered HH set up for approaching discharge. Pt declined HH services stating that her is retired and is able to assist her at home. Pt had no other discharge needs. Pt to discharge to home with transportation from with no discharge needs. * Ancillary Progress Note - Viki Dowell RN - 01/02/2023 3:11 PM EDT CARE MANAGEMENT - ADULT INITIAL SCREENING [facility] [address] Name: Jazmín Blevins Location: [facility] B730/B Date: 01/02/2023 Time: 3:11 PM Patient Class: Inpatient (01/02/231457) Discussed patient with the interdisciplinary care team. This Behavioral Technician performed a chart review to complete admission screen due to pt at endoscopy and assessed needs for transition planning. The behavioral health care coordinator role and services were explained and emotional support was provided. 30 Day Readmission Screening 30 Day Readmission Readmission within 30 days?: Yes, the previous hospital stay was at [facility] (01/02/231457) Where were you readmitted from?: Home without home care (including Assisted Living, Fpc, Personal Residential) (01/02/231457) Did you see your doctor before coming back to the hospital?: No, Other - See comment (Pt called herphysician and was instructed to go to the nearest ED which was [facility]) (01/02/231457) Did you feel ready when you left the hospital?: Unable to Determine (01/02/231457) Reason - Comment: Pt is in Endoscopy (01/02/231457) Did you have any difficulty obtaining your prescriptions/medicines when you left the hospital?: No (01/02/231457) Did you take ALL of your medicines, as directed?: Unable to determine (01/02/231457) Chief Complaint: No chief complaint on file. Prior Living Arrangements What was your living situation prior to admission/observation?: With Spouse (01/02/231457) Do you have any children, pets, or other dependents that you are currently caring for?: No (01/02/231457) Living Quarters: House (01/02/231457) How many stories is the dwelling?: Two Stories (01/02/231457) Number of steps to enter living quarters:: 3 in front, 5 on side (01/02/231457) Location of bathroom(s): All floors or Single story dwelling (01/02/231457) Do you have serious difficulty walking or climbing stairs? (5 years old or older): No (01/02/231457) History of falling: No (01/02/231457) Prior Level of Functioning Describe the patient's ability prior to admission/observation to perform ADLs: Performs independently (01/02/231457) Describe the patient's mobility status prior to admission: Patient ambulates independently (01/02/231457) Patient uses assistive device: No (01/02/231457) Caregiver Information Patient Contacts Name Relation Home Work Mobile Bipin Blevins Spouse [phone] Quin Euceda Adult Child [phone] Risk Stratification/Psychosocial/Care Gaps Risk Stratification Medical and Behavioral Health Concerns Identified: Chronic disease;Multiple comorbidities () Accessed [employer] to connect patients to social care resources: No (01/02/231457) OBRA or OPTIONS needed for placement: No (01/02/231457) Readmission Risk Score: 21 (01/02/231457) AM-PAC Score With Stairs : 24 (01/02/23 08) Comments: Initial assessment completed. Pt is a 30 day readmission and had a hospital stay from 12/21-12/30/22 at [facility] and was discharged home and went to the ED at [facility] on 12/31/22 after calling her MD after having a large bloody bowel movement at home and then was transferred here. Assessment was completed using chart review due to pt currently in Endoscopy. Pt resides with nichole in a two story home that has three steps to enter and everything is set up for her on the second floor. Pt does have her oxygen and nebulizer supplies delivered by [facility]. Pt was not ready to make the decision for Home health services last admission but CM to offer Home Health services this admission due to 21% readmission score. CM to follow up due to pt currently off floor at present time. Prior to Admission Services Services Prior to Admission TAX EXAMINING TECHNICIAN Services (Services received within the last 30 days with exception, Psych within last two years): Durable Medical Equipment (01/02/231457) TAX EXAMINING TECHNICIAN Durable Medical Equipment (DME) in home: Oxygen (name) - Comment (01/02/231457) DME Name: [place] (01/02/231457) [place] Dept[place] of Aging (PDA) Waiver Program: N/A (01/02/231457) TAX EXAMINING TECHNICIAN Transportation (Services received within the last 30 days): Family/Friends Personal Vehicle (01/02/231457) Outpatient Behavioral Technician: no, not applicable Patient/Family Expectations: Discharge when medically stable. Anticipated Disposition Plan & Post Acute Needs Anticipated Plan Anticipated D/C disposition per abbreviated screening: Post hospitalization needs identified, continue to monitor for transition planning (01/02/231457) Anticipated Post-Acute Care needs identified: Nebulizer;Home Care Services;Oxygen (01/02/231457) For further screening information, please refer to the Care Management flow document. * Communication - Pamela Badillo DO - 01/02/2023 1:30 PM EDT BRIEF NOTE - GASTROENTEROLOGY and HEPATOLOGY Colonoscopy 01/02/2023 Findings & Specimens: The terminal ileum appeared normal. A few small localized angiodysplastic lesions without bleeding were found in the ascending colon. Coagulation for bleeding prevention using argon plasma at 0.8 liters/minute and 35 arenas was successful. A single medium-sized localized angiodysplastic lesion without bleeding was found in the sigmoid colon. Coagulation for bleeding prevention using argon plasma at 0.8 liters/minute and 35 arenas was successful. Internal hemorrhoids were found during retroflexion. The hemorrhoids were medium-sized. Impression: - The examined portion of the ileum was normal. - A few non-bleeding colonic angiodysplastic lesions. Treated with argon plasma coagulation (APC). - A single non-bleeding colonic angiodysplastic lesion. Treated with argon plasma coagulation (APC). - Internal hemorrhoids. - No specimens collected. Recommendations Resume diet Avoid iatrogenic anemia Unable to use Octreotide 50 mg BID for AVM treatment due to cirrhosis Will plan for VCE capsule Capsule endoscopy placement: After obtaining consent form and answering all questions, Patient swallowed Pillcam Capsule on 01/02/2023 at 3:58 PM.We will obtain the recorder the following morning. Instructions sheet was given to patient and the nurse: Keep wearing the monitor around the neck till we remove it. Please let us know if patient develops abdominal pain, nausea or vomiting. No physical activity that makes the patient sweat, no lifting, bending over or stooping. No smoking during the test. Diet: Strict NPO for 2 hours post capsule ingestion 2 hours after taking the capsule: clear liquids (black coffee or tea without cream or milk, clear broth, clear carbonated beverages like soda or pop, pulp free-clear juices, hard candies such as lemon drops, Cosmo-aid but NOT the red one, popsicles but NOT the red one, Gatorade but NOT the red one).Medications are allowed. Do NOT eat Jello-O 4 hours after can have light meal with whatever patient wants to drink The capsule will pass with a bowel movement within 24-72 hours. NO MRI until the capsule passes. Please make patient NPO after 2400 in case a procedure is necessary Please obtain early AM labs: - Please ensure Hgb > 7.0, INR<2, K>3.5, Platelets >50K, sodium is within 5 points of reference range prior to the procedure. * Care Plan - Odilia Womack RN - 01/01/2023 3:50 PM EDT Clinical Goal(s): pt will remain free from falls and injuries (01/01/23 1500) Possible barriers to meeting goal(s)/advancing plan of care: weakness Stability of the patient: Moderately unstable - medium risk of patient condition declining or worsening Summary regarding today's goal(s): Met: no falls or injuries Recommendations: continue hourly rounding, call light within reach * Ancillary Progress Note - Mayi Santiago RRT - 01/01/2023 6:56 AM EDT PATIENT DRIVEN PROTOCOL - Respiratory Care Services [address] [address] Name: Jazmín Blevins Location: [facility] B730/B Date: 01/01/2023 Time: 6:57 AM Patient Driven Protocol Summary: Initial evaluation performed. This Treatment Plan and medications will be reviewed by the Primary Care Team for any contraindications. Respiratory Care Treatment Plan Aerosol Therapy Treatment: Inhaler(s) QDAY with Breo Ellipta (Fluticasone furoate 200 mcg and Vilanterol 25 mcg inhalation powder) / 1 inhalation to suppress bronchial inflammation and edema by the use of systemic steroid sparing therapy. Aerosol Therapy Treatment: Inhaler(s) QDAY with Incruse Ellipta (Umeclidinium 62.5 mcg inhalation powder) / 1 inhalation to reduce work of breathing and improve pulmonary gas exchange. Additional Aerosolized Treatments: Inhaler(s) PRN with Albuterol Sulfate: 2 puffs. to reduce work of breathing and improve pulmonary gas exchange. Pulmonary Volume Expansion Therapy: Incentive Spirometry PRN to prevent or treat alveolar consolidation and atelectasis. Secretion Management Treatment: Flutter Therapy PRN to enhance mobilization of secretions. The patient will be re-evaluated: No re-evaluation needed. Indications for treatment met. The Triage Level is: (Assessment Score = 6 -10) Level 4. Triage Level Definitions: Level 1 Severe Respiratory/Airway Compromise Level 2 Moderate Respiratory/Airway Compromise or high risk for pulmonary complications Level 3 Mild Respiratory/Airway Compromise or moderate risk for pulmonary complications Level 4 Episodic Respiratory/Airway Compromise or low risk for pulmonary complications Level 5 No Respiratory/Airway Compromise Triage 1 Triage 2 Triage 3 Triage 4 Triage 5 greater than 20 16 - 20 11 - 15 6 - 10 0 - 5 Medical Record Assessment Clinical Findings Pulmonary Status: 3 - Pulm Impairment (acute or chronic) w/o exacerbation, or 1 - 2 rib fractures Surgical Status: 0 - No Surgical History Chest X-Ray: 0 - Not Performed or performed greater than 3 days ago Assessment Score: 3 Patient Assessment Clinical Findings Respiratory Pattern: 0 - RR 12 - 20; Patient only gets breathless with strenuous exercise. Breath Sounds: 2 - Diminished bilaterally Cough Effectiveness: 0 - Strong non-productive Sputum Production: 0 - No sputum production Level of Activity: 1 - Ambulatory with assist O2 needed to keep SpO2 greater than or equal to 92%: 1 - Oxygen 1-3 LPM or FiO2 less than 35% Assessment Score: 4 Total Assessment Score: 7 Breath Sounds: Inspiratory and expiratory diminished bilaterally.. Cough and Sputum: An effective cough produced no sputum. CXR: NA. Vital Signs: Resp: 18 (01/01/23599) Pulse: 55 (01/01/23599) Temp: 36.5 C (97.7 F) (01/01/23599) BP: 81/41 (01/01/23599) SpO2: 92 % (01/01/23599) PFT: Minimal Predicted IC: 0.891 L. Inspiratory capacity: 1.0 L. Primary Service: Med S. Admitting Diagnosis: GI bleed [K92.2] Pulmonary Diagnosis: COPD. Prescriptions/Home Medications/Durable Medical Equipment: QDAY Spiriva, QDAY Breo 200, PRN Albuterol. Recommended New home medications/durable medical equipment/outpatient pulmonary/sleep referral TBD. documented in this encounter Plan of Treatment Upcoming Encounters Date Type Specialty Care Team Description 01/04/2023 Telemedicine Endocrinology Gilbert Hawkins MD [address] [place] [address] 01/09/2023 Office Visit Ophthalmology Lakesha French DO [address] [place] [address] 03/16/2023 Office Visit Pulmonary Twin Hayden MD [address] [place] [address] Scheduled Orders Name Type Priority Associated Diagnoses Orde r Schedule COLONOSCOPY, DIAGNOSTIC (RECTUM) Procedures Routine Once for 1 Occurrences starting 01/02/2023 until 01/02/2023 VIDEO CAPSULE ENDOSCOPY Gastro Upper Routine One Time for 1 Occurrences starting 01/02/2023 until 01/02/2023 Scheduled Procedures Name Priority Associated Diagnoses Date/Ti [...] Comments DISCUSS TOBACCO CESSATION (REFER TO SMARTSET #[id number]) 1965 COVID-19 Vaccine (#1) 1970 Alpha-1 Antitrypsin [...] this encounter Medical Devices Implanted Type Area Clinical Application Manager Device Identifier Shelf Expiration Date Model / Serial / Lot Lens 22.0 Sa60at - [id number] Implanted:Qty: 1 on 10/15/2012 at OR [facility] Left: Eye [employer] 10/07/2016 SA60AT / [id number] / Lens 22.0 Sa60at - [id number] Implanted:Qty: 1 on 11/29/2012 at [place] [facility] [place]: Eye [employer] 03/31/2017 SA60AT / [id number] / Duraclip 11mm Repositionable - [id number] Implanted:Qty: 1 on 05/11/2022 by Jeffrey Weber MD at [place]OSCOPY [facility] [employer]sen [id number] 01/29/2024 [id number] / / [id number] documented as of this encounter Procedures Procedure Name Priority Date/Time Associated Diagnosis Comments BASIC METABOLIC PANEL Routine 01/03/2023 9:05 AM EDT PT INR Routine 01/03/2023 9:05 AM EDT PHOSPHORUS Routine 01/03/2023 9:05 AM EDT CBC Routine 01/03/2023 9:05 AM EDT MAGNESIUM Routine 01/03/2023 9:05 AM EDT CBC Routine 01/02/2023 6:21 PM EDT COLONOSCOPY FLEXIBLE PROXIMAL DIAGNOSTIC 01/02/2023 12:19 PM EDT Hematochezia COLONOSCOPY 01/02/2023 12:12 PM EDT BASIC METABOLIC PANEL Routine 01/02/2023 9:42 AM EDT PT INR Routine 01/02/2023 9:42 AM EDT PHOSPHORUS Routine 01/02/2023 9:42 AM EDT CBC Routine 01/02/2023 9:42 AM EDT MAGNESIUM Routine 01/02/2023 9:42 AM EDT CBC STAT 01/01/2023 10:13 PM EDT CBC STAT 01/01/2023 1:07 PM EDT BASIC METABOLIC PANEL Routine 01/01/2023 5:57 AM EDT PT INR Routine 01/01/2023 5:57 AM EDT PHOSPHORUS Routine 01/01/2023 5:57 AM EDT LACTATE Routine 01/01/2023 5:57 AM EDT CBC Routine 01/01/2023 5:57 AM EDT MAGNESIUM Routine 01/01/2023 5:57 AM EDT BASIC METABOLIC PANEL STAT 12/31/2022 8:25 PM EDT LACTATE STAT 12/31/2022 8:25 PM EDT CBC STAT 12/31/2022 8:25 PM EDT DIFFERENTIAL, TECHNOLOGIST REVIEW Routine 12/31/2022 8:25 PM EDT documented in this encounter Results * (ABNORMAL) BASIC METABOLIC PANEL (01/03/2023 9:05 AM EDT) BUN 6 6 - 20 mg/dL 01/03/2023 9:56 AM EDT LABORATORY C Creatinine 0.8 0.5 - 1.0 mg/dL 01/03/2023 9:56 AM EDT LABORATORY GMC Estimated Glomerular Filtration Rate >90 >=60 mL/min 01/03/2023 9:56 AM EDT LABORATORY C Comment:eGFR is calculated b ased on the CKD-EPI 2020 equation Sodium 140 135 - 146 mmol/L 01/03/2023 9:56 AM EDT LABORATORY GMC Potassium 3.9 3.5 - 5.1 mmol/L 01/03/2023 9:56 AM EDT LABORATORY GMC Chloride 110(H) 98 - 107 mmol/L 01/03/2023 9:56 AM EDT LABORATORY GMC CO2 21(L) 22 - 32 mmol/L 01/03/2023 9:56 AM EDT LABORATORY C Anion Gap 9 7 - 15 mmol/L 01/03/2023 9:56 AM EDT LABORATORY [facility] Glucose 102 70 - 120 mg/dL 01/03/2023 9:56 AM EDT LABORATORY C Calcium 8.1(L) 8.4 - 10.2 mg/dL 01/03/2023 9:56 AM EDT LABORATORY [facility] Blood Venous blood specimen / Unknown Venipuncture / Unknown 01/03/2023 9:05 AM EDT 01/03/2023 9:26 AM EDT Re Howell LAB BLOOD ORD ERABLES LABORATORY [facility] [address] [place], [place] [id number] * PT INR (01/03/2023 9:05 AM EDT) [facility] Prothrombin Time 13.5 11.6 - 15.2 seconds 01/03/2023 9:59 AM EDT LABORATORY [facility] INR 1.0 0.8 - 1.2 01/03/2023 9:59 AM EDT LABORATORY [facility] Blood Venous blood specimen / Unknown Venipuncture / Unknown 01/03/2023 9:05 AM EDT 01/03/2023 9:26 AM EDT Narrative LABORATORY G[facility] - 01/03/2023 9:59 AM EDT Warfarin Therapy INR: 2.0-3.0 conventional anticoagulation INR: 2.5-3.5 high intensity anticoagulation Re Liang Howell LAB BLOOD ORD ERABLES Performing Organization Address [facility] Co de Phone Number LABORATORY [facility] [address] [place] [address] * (ABNORMAL) PHOSPHORUS (01/03/2023 9:05 AM EDT) Phosphorus 2.1(L) 2.5 - 4.8 mg/dL 01/03/2023 9:56 AM EDT LABORATORY C Blood Venous blood specimen / Unknown Venipuncture / Unknown 01/03/2023 9:05 AM EDT 01/03/2023 9:26 AM EDT Re Liang Howell LAB BLOOD ORD ERABLES Performing Organization Address [facility] Co de Phone Number LABORATORY [facility] [address] [place] [address] * MAGNESIUM (01/03/2023 9:05 AM EDT) Magnesium 2.0 1.5 - 2.6 mg/dL 01/03/2023 9:56 AM EDT LABORATORY [facility] Blood Venous blood specimen / Unknown Venipuncture / Unknown 01/03/2023 9:05 AM EDT 01/03/2023 9:26 AM EDT Re Liang Howell LAB BLOOD ORD ERABLES Performing Organization Address [facility] Co de Phone Number LABORATORY [facility] [address] [place] [address] * (ABNORMAL) CBC (01/03/2023 9:05 AM EDT) WBC 6.23 4.00 - 10.80 K/uL 01/03/2023 9:35 AM EDT LABORATORY GMC RBC 3.64 3.85 - 5.15 M/uL 01/03/2023 9:35 AM EDT LABORATORY GM HGB 9.2(L) 12.0 - 15.3 g/dL 01/03/2023 9:35 AM EDT LABORATORY GMC HCT 31.8(L) 36.0 - 45.2 % 01/03/2023 9:35 AM EDT LABORATORY G[facility] MCV 87.4 81.5 - 97.5 fL 01/03/2023 9:35 AM EDT LABORATORY GMC MCH 25.3 27.0 - 34.0 pg 01/03/2023 9:35 AM EDT LABORATORY GMC MCHC 28.9 32.0 - 36.0 g/dL 01/03/2023 9:35 AM EDT LABORATORY GMC RDW 28.9 11.5 - 15.5 % 01/03/2023 9:35 AM EDT LABORATORY G[facility] PLT 288 140 - 400 K/uL 01/03/2023 9:35 AM EDT LABORATORY GMC MPV 9.9 6.6 - 11.1 fL 01/03/2023 9:35 AM EDT LABORATORY GMC nRBCs 0 <=0 /100 WBCs 01/03/2023 9:35 AM EDT LABORATORY GMC Blood Venous blood specimen / Unknown Venipuncture / Unknown 01/03/2023 9:05 AM EDT 01/03/2023 9:26 AM EDT Re Howell DO LAB BLOOD ORD ERABLES LABORATORY [facility] [address] [place] [address] * (ABNORMAL) CBC (01/02/2023 6:21 PM EDT) [facility] WBC 4.57 4.00 - 10.80 K/uL 01/02/2023 7:23 PM EDT LABORATORY GMC RBC 3.56 3.85 - 5.15 M/uL 01/02/2023 7:23 PM EDT LABORATORY GMC HGB 8.8(L) 12.0 - 15.3 g/dL 01/02/2023 7:23 PM EDT LABORATORY GMC HCT 32.4(L) 36.0 - 45.2 % 01/02/2023 7:23 PM EDT LABORATORY G[facility] MCV 91.0 81.5 - 97.5 fL 01/02/2023 7:23 PM EDT LABORATORY GMC MCH 24.7 27.0 - 34.0 pg 01/02/2023 7:23 PM EDT LABORATORY GM MCHC 27.2 32.0 - 36.0 g/dL 01/02/2023 7:23 PM EDT LABORATORY C RDW 29.4 11.5 - 15.5 % 01/02/2023 7:23 PM EDT LABORATORY GMC PLT 266 140 - 400 K/uL 01/02/2023 7:23 PM EDT LABORATORY [facility] MPV 10.7 6.6 - 11.1 fL 01/02/2023 7:23 PM EDT LABORATORY GM nRBCs 0 <=0 /100 WBCs 01/02/2023 7:23 PM EDT LABORATORY GM Blood Venous blood specimen / Unknown Venipuncture / Unknown 01/02/2023 6:21 PM EDT 01/02/2023 6:53 PM EDT Miriam Sanches MD LAB BLOOD ORDERABLES LABORATORY [facility] [address] [place] [address] * COLONOSCOPY (01/02/2023 12:12 PM EDT) 01/02/2023 12:1 2 PM EDT Procedure Note Rishi Booth DO - 01/02/2023 12:12 PM EDT [facility] Patient Name: Jazmín Blevins Procedure Date: 01/02/2023 12:12 PM Date of : 1965 Admit Type: Inpatient Note Status:Finalized Date of : 1965 Admit Type: Inpatient Age: 57 Room: Endo - Room 4 Gender: Female Note Status: Finalized Procedure: Colonoscopy Indications: Hematochezia Providers: Naomie Magallanes MD (Doctor), Jasper Mckeon MD(Fellow) Patient Profile: This is a 57 year old female. Refer to note inpatient chart for documentation of history and physical. Referring MD: Rishi Booth DO, Lauren Greene Medicines: Monitored Anesthesia Care Complications: No immediate complications. Procedure: Pre-Anesthesia Assessment: - Jayess Protocol: - Pre-procedure Verification: Prior to theprocedure, the patient's identity was verified by full name, date of and medicalrecord number. The patient's identity was verified on all pertinent medicalrecords, including History and Physical and nursing assessment. Also prior to theprocedure, a History and Physical was performed, and patient medications, allergiesand sensitivities were reviewed. The patient's tolerance of previous anesthesia wasreviewed. The patient is competent. The risks and benefits of the procedureand the sedation options and risks were discussed with the patient. All questions wereanswered and informed consent was obtained. - Time-Out: Prior to the start of the procedure,the patient's identification, proposed procedure, accurate signed consent,correctly labeled images and records, and need for prophylactic antibiotics were verifiedby the physician, the nurse and the sea shell gatherer in the pre-procedure area in theprocedure room. - The supervising physician was present for theentire procedure from scope insertion until scope withdrawal. After I obtained informed consent, the scope waspassed under direct vision. All instruments were visually inspected immediatelybefore and after removal from the patient to ensure they are fully intact. Throughout the procedure, the patient's bloodpressure, pulse, and oxygen saturations were monitored continuously. The [id number]) was introduced through the anus and advanced to the terminalileum. The quality of the bowel preparation was good. Findings & Specimens: The terminal ileum appeared normal. A few small localized angiodysplastic lesions without bleeding werefound in the ascending colon. Coagulation for bleeding prevention using argon plasma at 0.8liters/minute and 35 arenas was successful. A single medium-sized localized angiodysplastic lesion withoutbleeding was found in the sigmoid colon. Coagulation for bleeding prevention using argon plasma at 0.8liters/minute and 35 arenas was successful. Internal hemorrhoids were found during retroflexion. The hemorrhoidswere medium-sized. Impression: - The examined portion of the ileum was normal. - A few non-bleeding colonic angiodysplasticlesions. Treated with argon plasma coagulation (APC). - A single non-bleeding colonic angiodysplasticlesion. Treated with argon plasma coagulation (APC). - Internal hemorrhoids. - No specimens collected. Recommendation: - Return patient to hospital brady for ongoingcare. - Repeat colonoscopy. Naomie Magallanes MD 01/02/2023 1:19:52 PM This report has been signed electronically. Jasper Mckeon MD Rouenne Leobardo DO GASTRO LOWER * (ABNORMAL) BASIC METABOLIC PANEL (01/02/2023 9:42 AM EDT) BUN 8 6 - 20 mg/dL 01/02/2023 10:28 AM EDT LABORATORY GMC Creatinine 0.7 0.5 - 1.0 mg/dL 01/02/2023 10:28 AM EDT LABORATORY GMC Estimated Glomerular Filtration Rate >90 >=60 mL/min 01/02/2023 10:28 AM EDT LABORATORY GMC Comment:eGFR is calculated b ased on the CKD-EPI 2020 equation Sodium 139 135 - 146 mmol/L 01/02/2023 10:28 AM EDT LABORATORY GMC Potassium 3.1(L) 3.5 - 5.1 mmol/L 01/02/2023 10:28 AM EDT LABORATORY GMC Chloride 107 98 - 107 mmol/L 01/02/2023 10:28 AM EDT LABORATORY GMC CO2 23 22 - 32 mmol/L 01/02/2023 10:28 AM EDT LABORATORY GMC Anion Gap 9 7 - 15 mmol/L 01/02/2023 10:28 AM EDT LABORATORY GMC Glucose 97 70 - 120 mg/dL 01/02/2023 10:28 AM EDT LABORATORY GMC Calcium 8.1(L) 8.4 - 10.2 mg/dL 01/02/2023 10:28 AM EDT LABORATORY GMC Blood Venous blood specimen / Unknown Venipuncture / Unknown 01/02/2023 9:42 AM EDT 01/02/2023 9:59 AM EDT Re Goldmanman LAB BLOOD ORD ERABLES LABORATORY G[facility] [address] [place] [address] * PT INR (01/02/2023 9:42 AM EDT) Prothrombin Time 13.7 11.6 - 15.2 seconds 01/02/2023 10:22 AM EDT LABORATORY [facility] INR 1.0 0.8 - 1.2 01/02/2023 10:22 AM EDT LABORATORY [facility] Blood Venous blood specimen / Unknown Venipuncture / Unknown 01/02/2023 9:42 AM EDT 01/02/2023 9:59 AM EDT Narrative LABORATORY GMC - 01/02/2023 10:22 AM EDT Warfarin Therapy INR: 2.0-3.0 conventional anticoagulation INR: 2.5-3.5 high intensity anticoagulation Re [facility] LAB BLOOD ORD ERABLES LABORATORY [facility] [address] [place] [address] * PHOSPHORUS (01/02/2023 9:42 AM EDT) Phosphorus 2.7 2.5 - 4.8 mg/dL 01/02/2023 10:28 AM EDT LABORATORY [facility] Blood Venous blood specimen / Unknown Venipuncture / Unknown 01/02/2023 9:42 AM EDT 01/02/2023 9:59 AM EDT Re [facility] LAB BLOOD ORD ERABLES LABORATORY [facility] [address] [place] [address] * MAGNESIUM (01/02/2023 9:42 AM EDT) Magnesium 1.7 1.5 - 2.6 mg/dL 01/02/2023 10:28 AM EDT LABORATORY [facility] Blood Venous blood specimen / Unknown Venipuncture / Unknown 01/02/2023 9:42 AM EDT 01/02/2023 9:59 AM EDT Re [facility] LAB BLOOD ORD ERABLES LABORATORY G[facility] [address] [place] [address] * (ABNORMAL) CBC (01/02/2023 9:42 AM EDT) WBC 4.71 4.00 - 10.80 K/uL 01/02/2023 10:07 AM EDT LABORATORY GMC RBC 3.72 3.85 - 5.15 M/uL 01/02/2023 10:07 AM EDT LABORATORY GMC HGB 9.4(L) 12.0 - 15.3 g/dL 01/02/2023 10:07 AM EDT LABORATORY GMC HCT 32.7(L) 36.0 - 45.2 % 01/02/2023 10:07 AM EDT LABORATORY GMC MCV 87.9 81.5 - 97.5 fL 01/02/2023 10:07 AM EDT LABORATORY GMC MCH 25.3 27.0 - 34.0 pg 01/02/2023 10:07 AM EDT LABORATORY GMC MCHC 28.7 32.0 - 36.0 g/dL 01/02/2023 10:07 AM EDT LABORATORY GMC RDW 28.9 11.5 - 15.5 % 01/02/2023 10:07 AM EDT LABORATORY G[facility] PLT 274 140 - 400 K/uL 01/02/2023 10:07 AM EDT LABORATORY GMC MPV 10.6 6.6 - 11.1 fL 01/02/2023 10:07 AM EDT LABORATORY GMC nRBCs 0 <=0 /100 WBCs 01/02/2023 10:07 AM EDT LABORATORY GMC Blood Venous blood specimen / Unknown Venipuncture / Unknown 01/02/2023 9:42 AM EDT 01/02/2023 9:59 AM EDT [facility] LABORATORY G[facility] [address] [place] [address] * (ABNORMAL) CBC (01/01/2023 10:13 PM EDT) WBC 6.35 4.00 - 10.80 K/uL 01/01/2023 10:53 PM EDT LABORATORY GMC RBC 3.79 3.85 - 5.15 M/uL 01/01/2023 10:53 PM EDT LABORATORY GMC HGB 9.4(L) 12.0 - 15.3 g/dL 01/01/2023 10:53 PM EDT LABORATORY GMC HCT 32.9(L) 36.0 - 45.2 % 01/01/2023 10:53 PM EDT LABORATORY GMC MCV 86.8 81.5 - 97.5 fL 01/01/2023 10:53 PM EDT LABORATORY GMC MCH 24.8 27.0 - 34.0 pg 01/01/2023 10:53 PM EDT LABORATORY GMC MCHC 28.6 32.0 - 36.0 g/dL 01/01/2023 10:53 PM EDT LABORATORY GMC RDW 29.0 11.5 - 15.5 % 01/01/2023 10:53 PM EDT LABORATORY GMC PLT 291 140 - 400 K/uL 01/01/2023 10:53 PM EDT LABORATORY GMC MPV 10.5 6.6 - 11.1 fL 01/01/2023 10:53 PM EDT LABORATORY GM nRBCs 0 <=0 /100 WBCs 01/01/2023 10:53 PM EDT LABORATORY [facility] Blood Venous blood specimen / Unknown Venipuncture / Unknown 01/01/2023 10:13 PM EDT 01/01/2023 10:42 PM EDT Miriam Sanches MD LAB BLOOD ORDERABLES LABORATORY [facility] [address] [place] [address] * (ABNORMAL) CBC (01/01/2023 1:07 PM EDT) WBC 6.60 4.00 - 10.80 K/uL 01/01/2023 1:43 PM EDT LABORATORY GMC RBC 3.56 3.85 - 5.15 M/uL 01/01/2023 1:43 PM EDT LABORATORY GMC HGB 8.9(L) 12.0 - 15.3 g/dL 01/01/2023 1:43 PM EDT LABORATORY GMC HCT 30.7(L) 36.0 - 45.2 % 01/01/2023 1:43 PM EDT LABORATORY GMC MCV 86.2 81.5 - 97.5 fL 01/01/2023 1:43 PM EDT LABORATORY GMC MCH 25.0 27.0 - 34.0 pg 01/01/2023 1:43 PM EDT LABORATORY GMC MCHC 29.0 32.0 - 36.0 g/dL 01/01/2023 1:43 PM EDT LABORATORY GMC RDW 29.0 11.5 - 15.5 % 01/01/2023 1:43 PM EDT LABORATORY G[facility] PLT 260 140 - 400 K/uL 01/01/2023 1:43 PM EDT LABORATORY GMC MPV 10.5 6.6 - 11.1 fL 01/01/2023 1:43 PM EDT LABORATORY GMC nRBCs 0 <=0 /100 WBCs 01/01/2023 1:43 PM EDT LABORATORY GMC Blood Venous blood specimen / Unknown Venipuncture / Unknown 01/01/2023 1:07 PM EDT 01/01/2023 1:36 PM EDT Miriam Sanches MD LAB BLOOD ORDERABLES Performing Organization Address City/State/[facility] Co de Phone Number LABORATORY [facility] [address] [place] [address] * (ABNORMAL) BASIC METABOLIC PANEL (01/01/2023 5:57 AM EDT) Pathologist [facility] BUN 17 6 - 20 mg/dL 01/01/2023 6:42 AM EDT LABORATORY GMC Creatinine 1.1(H) 0.5 - 1.0 mg/dL 01/01/2023 6:42 AM EDT LABORATORY GMC Estimated Glomerular Filtration Rate 57(L) >=60 mL/min 01/01/2023 6:42 AM EDT LABORATORY GMC Comment:eGFR is calculated b ased on the CKD-EPI 2020 equation Sodium 137 135 - 146 mmol/L 01/01/2023 6:42 AM EDT LABORATORY GMC Potassium 4.1 3.5 - 5.1 mmol/L 01/01/2023 6:42 AM EDT LABORATORY GMC Chloride 102 98 - 107 mmol/L 01/01/2023 6:42 AM EDT LABORATORY GMC CO2 24 22 - 32 mmol/L 01/01/2023 6:42 AM EDT LABORATORY GMC Anion Gap 11 7 - 15 mmol/L 01/01/2023 6:42 AM EDT LABORATORY GMC Glucose 80 70 - 120 mg/dL 01/01/2023 6:42 AM EDT LABORATORY GMC Calcium 7.8(L) 8.4 - 10.2 mg/dL 01/01/2023 6:42 AM EDT LABORATORY C Blood Venous blood specimen / Unknown Venipuncture / Unknown 01/01/2023 5:57 AM EDT 01/01/2023 6:06 AM EDT [facility] LAB BLOOD ORD ERABLES LABORATORY [facility] [address] [place] [address] * PT INR (01/01/2023 5:57 AM EDT) [facility] Prothrombin Time 14.4 11.6 - 15.2 seconds 01/01/2023 6:36 AM EDT LABORATORY [facility] INR 1.1 0.8 - 1.2 01/01/2023 6:36 AM EDT LABORATORY [facility] Blood Venous blood specimen / Unknown Venipuncture / Unknown 01/01/2023 5:57 AM EDT 01/01/2023 6:06 AM EDT Narrative LABORATORY [facility] - 01/01/2023 6:36 AM EDT Warfarin Therapy INR: 2.0-3.0 conventional anticoagulation INR: 2.5-3.5 high intensity anticoagulation Re [facility] LAB BLOOD ORD ERABLES LABORATORY [facility] [address] [place] [address] * PHOSPHORUS (01/01/2023 5:57 AM EDT) [facility] Phosphorus 4.4 2.5 - 4.8 mg/dL 01/01/2023 6:42 AM EDT LABORATORY [facility] Blood Venous blood specimen / Unknown Venipuncture / Unknown 01/01/2023 5:57 AM EDT 01/01/2023 6:06 AM EDT Re [facility] LAB BLOOD ORD ERABLES LABORATORY [facility] [address] [place] [address] * MAGNESIUM (01/01/2023 5:57 AM EDT) [facility] Magnesium 1.6 1.5 - 2.6 mg/dL 01/01/2023 6:42 AM EDT LABORATORY [facility] Blood Venous blood specimen / Unknown Venipuncture / Unknown 01/01/2023 5:57 AM EDT 01/01/2023 6:06 AM EDT Re [facility] LAB BLOOD ORD ERABLES LABORATORY [facility] [address] [place] [address] * (ABNORMAL) CBC (01/01/2023 5:57 AM EDT) [facility] WBC 6.75 4.00 - 10.80 K/uL 01/01/2023 6:22 AM EDT LABORATORY GM RBC 3.27 3.85 - 5.15 M/uL 01/01/2023 6:22 AM EDT LABORATORY GM HGB 8.1(L) 12.0 - 15.3 g/dL 01/01/2023 6:22 AM EDT LABORATORY GM HCT 27.9(L) 36.0 - 45.2 % 01/01/2023 6:22 AM EDT LABORATORY GM MCV 85.3 81.5 - 97.5 fL 01/01/2023 6:22 AM EDT LABORATORY [facility] MCH 24.8 27.0 - 34.0 pg 01/01/2023 6:22 AM EDT LABORATORY GM MCHC 29.0 32.0 - 36.0 g/dL 01/01/2023 6:22 AM EDT LABORATORY G[facility] RDW 28.3 11.5 - 15.5 % 01/01/2023 6:22 AM EDT LABORATORY G[facility] PLT 246 140 - 400 K/uL 01/01/2023 6:22 AM EDT LABORATORY G[facility] MPV 10.5 6.6 - 11.1 fL 01/01/2023 6:22 AM EDT LABORATORY G[facility] nRBCs 0 <=0 /100 WBCs 01/01/2023 6:22 AM EDT LABORATORY GMC Blood Venous blood specimen / Unknown Venipuncture / Unknown 01/01/2023 5:57 AM EDT 01/01/2023 6:06 AM EDT [facility] LAB BLOOD ORD ERABLES LABORATORY [facility] [address] [place] [address] * LACTATE (01/01/2023 5:57 AM EDT) Pathologist [facility] Lactate 0.9 0.4 - 2.0 mmol/L 01/01/2023 6:41 AM EDT LABORATORY GMC Blood Venous blood specimen / Unknown Venipuncture / Unknown 01/01/2023 5:57 AM EDT 01/01/2023 6:06 AM EDT [facility] LAB BLOOD ORD ERABLES LABORATORY [facility] [address] [place] [address] * (ABNORMAL) DIFFERENTIAL, TECHNOLOGIST REVIEW (12/31/2022 8:25 PM EDT) Ovalocytes Moderate( A) None Seen 12/31/2022 9:12 PM EDT LABORATORY G[facility] Schistocytes Few(A) None Seen 12/31/2022 9:12 PM EDT LABORATORY G[facility] Target Cells Moderate( A) None Seen 12/31/2022 9:12 PM EDT LABORATORY G[facility] Tear Drop Cells Moderate( A) None Seen 12/31/2022 9:12 PM EDT LABORATORY G[facility] Blood Venous blood specimen / Unknown Venipuncture / Unknown 12/31/2022 8:25 PM EDT 12/31/2022 8:30 PM EDT Re Howell DO LAB BLOOD ORD ERABLES LABORATORY [facility] [address] [place] [address] * (ABNORMAL) BASIC METABOLIC PANEL (12/31/2022 8:25 PM EDT) BUN 12 6 - 20 mg/dL 12/31/2022 8:52 PM EDT LABORATORY G[facility] Creatinine 0.9 0.5 - 1.0 mg/dL 12/31/2022 8:52 PM EDT LABORATORY G[facility] Estimated Glomerular Filtration Rate 77 >=60 mL/min 12/31/2022 8:52 PM EDT LABORATORY GMC Comment:eGFR is calculated b ased on the CKD-EPI 2020 equation Sodium 135 135 - 146 mmol/L 12/31/2022 8:52 PM EDT LABORATORY G[facility] Potassium 4.1 3.5 - 5.1 mmol/L 12/31/2022 8:52 PM EDT LABORATORY G[facility] Chloride 99 98 - 107 mmol/L 12/31/2022 8:52 PM EDT LABORATORY G[facility] CO2 24 22 - 32 mmol/L 12/31/2022 8:52 PM EDT LABORATORY G[facility] Anion Gap 12 7 - 15 mmol/L 12/31/2022 8:52 PM EDT LABORATORY G[facility] Glucose 91 70 - 120 mg/dL 12/31/2022 8:52 PM EDT LABORATORY [facility] Calcium 8.1(L) 8.4 - 10.2 mg/dL 12/31/2022 8:52 PM EDT LABORATORY G[facility] Blood Venous blood specimen / Unknown Venipuncture / Unknown 12/31/2022 8:25 PM EDT 12/31/2022 8:30 PM EDT [facility] LAB BLOOD ORD ERABLES LABORATORY [facility] [address] [place] [address] * (ABNORMAL) LACTATE (12/31/2022 8:25 PM EDT) Lactate 2.2(H) 0.4 - 2.0 mmol/L 12/31/2022 8:50 PM EDT LABORATORY GM Blood Venous blood specimen / Unknown Venipuncture / Unknown 12/31/2022 8:25 PM EDT 12/31/2022 8:30 PM EDT Re [facility] LAB BLOOD ORD ERABLES Performing Organization Address City/[facility]/ZIP Co de Phone Number LABORATORY [facility] [address] [place] [address] * (ABNORMAL) CBC (12/31/2022 8:25 PM EDT) WBC 9.64 4.00 - 10.80 K/uL 12/31/2022 9:12 PM EDT LABORATORY [facility] RBC 4.08 3.85 - 5.15 M/uL 12/31/2022 9:12 PM EDT LABORATORY [facility] HGB 10.1(L) 12.0 - 15.3 g/dL 12/31/2022 9:12 PM EDT LABORATORY [facility] HCT 36.8 36.0 - 45.2 % 12/31/2022 9:12 PM EDT LABORATORY [facility] MCV 90.2 81.5 - 97.5 fL 12/31/2022 9:12 PM EDT LABORATORY [facility] MCH 24.8 27.0 - 34.0 pg 12/31/2022 9:12 PM EDT LABORATORY [facility] MCHC 27.4 32.0 - 36.0 g/dL 12/31/2022 9:12 PM EDT LABORATORY [facility] RDW 29.1 11.5 - 15.5 % 12/31/2022 9:12 PM EDT LABORATORY [facility] PLT 297 140 - 400 K/uL 12/31/2022 9:12 PM EDT LABORATORY [facility] MPV 10.4 6.6 - 11.1 fL 12/31/2022 9:12 PM EDT LABORATORY [facility] nRBCs 0 <=0 /100 WBCs 12/31/2022 9:12 PM EDT LABORATORY [facility] Blood Venous blood specimen / Unknown Venipuncture / Unknown 12/31/2022 8:25 PM EDT 12/31/2022 8:30 PM EDT Re Howell DO LAB BLOOD ORD ERABLES LABORATORY [facility] [address] [place] [address] documented in this encounter Visit Diagnoses Diagnosis Bright red blood per rectum- Primary Hemorrhage of rectum and anus GI bleed Hemorrhage of gastrointestinal tract, unspecified Chest pain Chest pain, unspecified Angiodysplasia of colon with hemorrhage [K55.21 (ICD-10-CM)] Angiodysplasia of intestine with hemorrhage Other hemorrhoids [K64.8 (ICD-10-CM)] 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 Jones's esophagus COPD, group C, by GOLD 2017 classification (HCC) Pulmonary hypertension (HCC) Other chronic pulmonary heart diseases Other cirrhosis of liver (HCC) Anemia Anemia, unspecified Lactic acidosis Acidosis Hematochezia Blood in stool 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 WASTE INFO ( IF NOT SENT HOME WITH PATIENT) : Return unused medication to pharmacy in zip lock bag for disposal into black container labeled SP. Bisacodyl (Dulcolax) tab 20 mg 20 mg, Oral, ONCE, On 01/01/23 at 1500, For 1 dose, For Bowel Prep, Pre-Op Given 01/01/2023 3:35 PM EDT 20 mg fluticasone (Flonase) nasal inhaler 2 [place] 2 [place], Nasal, Daily(AM), First dose on Mon01/01/23 at 0900, Until Discontinued, 50 mcg / Actuation Given 01/03/2023 9:11 AM EDT 2 Sprays Given 01/02/2023 7:57 AM EDT 2 Sprays Given 01/01/2023 8:10 AM EDT 2 Sprays fluticasone furoate-vilanterol (BREO ellipta) 200-25 MCG/ACT inhaler 1 Puff 1 Puff, Inhalation, Daily(AM), First dose on [place] 01/01/23 at 0900, Until Discontinued, NURSING TO FOLLOW PATIENT WITH MDI/DPI ADMINISTRATION Given 01/03/2023 9:11 AM EDT 1 Puff Given 01/02/2023 7:57 AM EDT 1 Puff Given 01/01/2023 8:10 AM EDT 1 Puff Gabapentin (Neurontin) cap 600 mg 600 mg, Oral, HS, First dose on [facility] 12/31/22 at 2200, Until Discontinued Given 01/02/2023 8:35 PM EDT 600 mg Given 01/01/2023 9:05 PM EDT 600 mg Given 12/31/2022 10:56 PM EDT 600 mg isolyte-S pH 7.4 infusion Intravenous, at 75 mL/hr, Plasma-LYTE 148, isolyte-S, and isolyte-S pH 7.4 are considered equivalent - including for MAR barcode scanning., CONTINUOUS, Starting on Mon01/01/23 at 1545, Until Mon01/03/23 at 2036 New Bag 01/03/2023 11:38 AM EDT 75 mL/hr New Bag 01/01/2023 3:26 PM EDT 75 mL/hr isolyte-S pH 7.4 infusion Intravenous, at 25 mL/hr, Plasma-LYTE 148, isolyte-S, and isolyte-S pH 7.4 are considered equivalent - including for MAR barcode scanning., CONTINUOUS, Starting on Mon01/02/23 at 1215, Until Mon01/02/23 at 1514, Pre-Op Restarted 01/02/2023 1:16 PM EDT Continue from Pre-Op 01/02/2023 12:25 PM EDT 25 mL/hr New Bag 01/02/2023 11:47 AM EDT 25 mL/hr levothyroxine (Levoxyl) tab 150 mcg 150 mcg, Oral, [id number], First dose on [place] 01/01/23 at 0630, Until Discontinued Given 01/03/2023 4:13 AM EDT 150 mcg Given 01/02/2023 5:15 AM EDT 150 mcg Given 01/01/2023 5:31 AM EDT 150 mcg mycophenolate (Cellcept) tab 500 mg 500 mg, Oral, BID (.AM/PM), First dose on 12/31/22 at 2145, Until Discontinued Given 01/03/2023 9:11 AM EDT 500 mg Given 01/02/2023 8:35 PM EDT 500 mg Given 01/02/2023 7:57 AM EDT 500 mg Nadolol (Corgard) tab 40 mg 40 mg, Oral, Daily(AM), First dose on [place] 01/01/23 at 0900, Until Discontinued, Hold for HR less than 60 or SBP below 100 and notify service if dose is held Given 01/03/2023 9:12 AM EDT 40 mg NSS 0.9% 1,000 mL bolus infusion Intravenous, at 1,000 mL/hr Administer over 60 Minutes, Administer entire volume within 60 minutes or less., ONCE, 1 dose, On [place] 01/01/23 at 0815 New Bag 01/01/2023 8:15 AM EDT 1,000 mL 1000 mL/hr NSS 0.9% 500 mL bolus infusion Intravenous, at 500 mL/hr Administer over 60 Minutes, Administer entire volume within 60 minutes or less., ONCE, 1 dose, On [place] 01/01/23 at 0630 New Bag 01/01/2023 6:30 AM EDT 500 mL 500 mL/hr oxygen GAS Nasal cannula, OXYGEN, First dose on [place] 01/01/23 at 0000, Until Discontinued, Device/Managed by: Low Flow Device, Goal SPO2 (%): Other, Lower-limit SPO2 (%): 88, Upper-limit SPO2 (%): 92, Starting Device: Nasal Cannula, Inital Flow Rate (LPM): 2, Lowest Support: Nasal Cannula: Flow 0-0.2 LPM. Titrate up/down by 0.0125 LPM., Titration Interval: Q2 minutes and as needed., Notify Provider: For sudden DECREASE in resting SPO2 to less than 85% and when escalating delivery device. Oxygen On 01/02/2023 4:00 PM EDT Oxygen On 01/02/2023 9:00 AM EDT Oxygen On 01/02/2023 12:00 AM EDT oxygen GAS Inhalation, OXYGEN, First dose on Mon01/02/23 at 1600, Until Discontinued, Device/Managed by: Low Flow Device, Goal SPO2 (%): 91-95, Starting Device: Nasal Cannula, Inital Flow Rate (LPM): 2, Lowest Support: Nasal Cannula: Flow 0-6 LPM. Titrate up/down by 1 LPM., Titration Interval: Q2 minutes and as needed., Notify Provider: For sudden DECREASE in resting SPO2 to less than 85% and when escalating delivery device. Oxygen On 01/02/2023 4:00 PM EDT Pantoprazole (Protonix) 80 mg in NSS 500 mL INFUSION Intravenous, at 50 mL/hr, CONTINUOUS, Starting on 12/31/22 at 2145, Until Mon01/03/23 at 2036 New Bag 01/03/2023 11:38 AM EDT 8 mg/hr 50 mL/hr New Bag 01/02/2023 5:15 AM EDT 8 mg/hr 50 mL/hr New Bag 01/01/2023 6:55 AM EDT 8 mg/hr 50 mL/hr Polyethylene Glycol 3350 (Miralax) oral powder 238 g 238 g, Oral, ONCE, On Mon01/01/23 at 1800, For 1 dose, Mix entire contents of 238 grams of Miralax bottle with 64 oz of clear or light colored Gatorade or water. Stir/shake until entire contents are completely dissolved. Have the patient drink 8 oz (240 mL) of solution every 15 minutes until solution is gone. Drink the solution slowly to prevent nausea and stomach upset. You may drink it directly or use a straw., Pre-Op Given 01/01/2023 5:58 PM EDT 238 g potassium chloride 10 mEq in 100 mL ivpb LOCKED DOSE 10 mEq, Peripheral IV, Q1H, 3 doses, First dose on Mon01/02/23 at 1200, Last dose on Mon01/02/23 at 1400, Administer over 60 Minutes, Standard infusion duration is 60 minutes. New Bag 01/02/2023 2:55 PM EDT 10 mEq 100 mL/hr New Bag 01/02/2023 2:51 PM EDT 10 mEq 100 mL/hr New Bag 01/02/2023 2:46 PM EDT 10 mEq 100 mL/hr potassium chloride ER tab 30 mEq 30 mEq, Oral, ONCE, On 01/02/23 at 1145, For 1 dose, This med should NOT be Crushed or Chewed Given 01/02/2023 2:46 PM EDT 30 mEq sodium chloride 0.9 % flush/inj 3 mL 3 mL, IV Push, PRN Other, Line Patency, Starting on 12/31/22 at 2023, Until Mon01/03/23 at 2036, Do not flush if lock, PICC, or central line not in place, IV infusing or unable to flush Given 01/01/2023 5:10 PM EDT 3 mL traMADol (Ultram) tab 100 mg 100 mg, Oral, Q6H PRN Pain, Moderate, Pain, Severe, Starting on Mon12/31/22 at 2113, Until Mon01/03/23 at 2036 Given 01/03/2023 9:29 AM EDT 100 mg Given 01/02/2023 8:35 PM EDT 100 mg Given 01/01/2023 9:05 PM EDT 100 mg traZODone (Desyrel) tab 50 mg 50 mg, Oral, HS, First dose on 12/31/22 at 2200, Until Discontinued Given 01/02/2023 8:35 PM EDT 50 mg Given 01/01/2023 9:05 PM EDT 50 mg Given 12/31/2022 10:56 PM EDT 50 mg umeclidinium [place] (INCRUSE ellipta) 62.5 MCG/ACT inhaler 1 Puff 1 Puff, Inhalation, RESPDAILY, First dose on 01/01/23 at 1000, Until Discontinued, NURSING TO FOLLOW PATIENT WITH MDI/DPI ADMINISTRATION Given 01/03/2023 9:11 AM EDT 1 Puff Given 01/02/2023 2:48 PM EDT 1 Puff Given 01/01/2023 8:11 AM EDT 1 Puff documented in this encounter Active and Recently Administered Medications Times are shown in EDT. Scheduled Medication Order 01/01/2023 01/02/2023 01/03/2023 Bisacodyl (Dulcolax) tab 20 mg (COMPLETED) 20 mg, Oral, ONCE, On 01/01/23 at 1500, For 1 dose, For Bowel Prep, Pre-Op 1535 (Given - Provider: Odilia Womack RN) fluticasone (Flonase) nasal inhaler 2 [place] 2 [place], Nasal, Daily(AM), First dose on 01/01/23 at 0900, Until Discontinued, 50 mcg / Actuation 0810 (Given - Provider: Odilia Womack, RN) 756 (Given - Provider: Quin Hirsch, RN) 09 (Given - Provider: Zia Medeiros, RN) fluticasone furoate-vilanterol (BREO ellipta) 200-25 MCG/ACT inhaler 1 Puff 1 Puff, Inhalation, Daily(AM), First dose on 01/01/23 at 0900, Until Discontinued, NURSING TO FOLLOW PATIENT WITH MDI/DPI ADMINISTRATION 08 (Given - Provider: Odilia Womack RN) 756 (Given - Provider: Quin Hirsch, RN) 09 (Given - Provider: Zia Medeiros, NELLIE) Gabapentin (Neurontin) cap 600 mg 600 mg, Oral, HS, First dose on 12/31/22 at 2200, Until Discontinued 2104 (Given - Provider: Krupa Gottlieb LPN) 2034 (Given - Provider: Krupa Gottlieb LPN) levothyroxine (Levoxyl) tab 150 mcg 150 mcg, Oral, [id number], First dose on 01/01/23 at 0630, Until Discontinued 0531 (Given - Provider: Krupa Gottlieb LPN) 0515 (Given - Provider: Krupa Gottlieb LPN) 0413 (Given - Provider: Krupa Gottlieb LPN) mycophenolate (Cellcept) tab 500 mg 500 mg, Oral, BID (.AM/PM), First dose on 12/31/22 at 2145, Until Discontinued 08 (Given - Provider: Odilia Womack RN)2104 (Given - Provider: Krupa Gottlieb LPN) 0757 (Given - Provider: Quin Hirsch RN)2034 (Given - Provider: Krupa Gottlieb LPN) 0911 (Given - Provider: Zia Medeiros, NELLIE) Nadolol (Corgard) tab 40 mg 40 mg, Oral, Daily(AM), First dose on 01/01/23 at 0900, Until Discontinued, Hold for HR less than 60 or SBP below 100 and notify service if dose is held 0900 (Not Given - Provider: Odilia Womack RN - Reason: Parameter(s) Not Met - Comment: bp low 88/44 md aware) 0900 (Not Given - Provider: Quin Hirsch RN - Reason: Parameter(s) Not Met) 0912 (Given - Provider: Zia Medeiros RN) NSS 0.9% 1,000 mL bolus infusion (COMPLETED) Intravenous, at 1,000 mL/hr Administer over 60 Minutes, Administer entire volume within 60 minutes or less., ONCE, 1 dose, On Mon01/01/23 at 0815 0815 (New Bag - Provider: Odilia Womack RN) NSS 0.9% 500 mL bolus infusion (COMPLETED) Intravenous, at 500 mL/hr Administer over 60 Minutes, Administer entire volume within 60 minutes or less., ONCE, 1 dose, On 01/01/23 at 0630 0630 (New Bag - Provider: Krupa Gottlieb LPN) oxygen GAS Nasal cannula, OXYGEN, First dose on 01/01/23 at 0000, Until Discontinued, Device/Managed by: Low Flow Device, Goal SPO2 (%): Other, Lower-limit SPO2 (%): 88, Upper-limit SPO2 (%): 92, Starting Device: Nasal Cannula, Inital Flow Rate (LPM): 2, Lowest Support: Nasal Cannula: Flow 0-0.2 LPM. Titrate up/down by 0.0125 LPM., Titration Interval: Q2 minutes and as needed., Notify Provider: For sudden DECREASE in resting SPO2 to less than 85% and when escalating delivery device. 0000 (Oxygen On - Provider: Krupa Gottlieb LPN)0800 (Oxygen On - Provider: Odilia Womack RN)1600 (Oxygen On - Provider: Odilia Womack RN) 0000 (Oxygen On - Provider: Krupa Gottlieb LPN)0900 (Oxygen On - Provider: Quin Hirsch RN)1600 (Oxygen On - Provider: Quin Hirsch RN) 0000 (Oxygen Off - Provider: Krupa Gottlieb LPN)0800 (Oxygen Off - Provider: Zia Medeiros RN)1600 (Oxygen Off - Provider: Zia Medeiros RN) oxygen GAS Inhalation, OXYGEN, First dose on Mon01/02/23 at 1600, Until Discontinued, Device/Managed by: Low Flow Device, Goal SPO2 (%): 91-95, Starting Device: Nasal Cannula, Inital Flow Rate (LPM): 2, Lowest Support: Nasal Cannula: Flow 0-6 LPM. Titrate up/down by 1 LPM., Titration Interval: Q2 minutes and as needed., Notify Provider: For sudden DECREASE in resting SPO2 to less than 85% and when escalating delivery device. 1600 (Oxygen On - Provider: Quin Hirsch RN) 0000 (Oxygen Off - Provider: Krupa Gottlieb LPN)0800 (Oxygen Off - Provider: Zia Medeiros RN)1600 (Oxygen Off - Provider: Zia Medeiros RN) Polyethylene Glycol 3350 (Miralax) oral powder 238 g (COMPLETED) 238 g, Oral, ONCE, On Mon01/01/23 at 1800, For 1 dose, Mix entire contents of 238 grams of Miralax bottle with 64 oz of clear or light colored Gatorade or water. Stir/shake until entire contents are completely dissolved. Have the patient drink 8 oz (240 mL) of solution every 15 minutes until solution is gone. Drink the solution slowly to prevent nausea and stomach upset. You may drink it directly or use a straw., Pre-Op 1758 (Given - Provider: Odilia Womack RN) potassium chloride 10 mEq in 100 mL ivpb LOCKED DOSE (COMPLETED) 10 mEq, Peripheral IV, Q1H, 3 doses, First dose on Mon01/02/23 at 1200, Last dose on Mon01/02/23 at 1400, Administer over 60 Minutes, Standard infusion duration is 60 minutes. 1446 (New Bag - Provider: Quin Hirsch RN)1451 (New Bag - Provider: Quin Hirsch RN)1455 (New Bag - Provider: Quin Hirsch RN) potassium chloride ER tab 30 mEq (COMPLETED) 30 mEq, Oral, ONCE, On 01/02/23 at 1145, For 1 dose, This med should NOT be Crushed or Chewed 1446 (Given - Provider: Quin Hirsch, RN) traZODone (Desyrel) tab 50 mg 50 mg, Oral, HS, First dose on 12/31/22 at 2200, Until Discontinued 2104 (Given - Provider: Krupa Gottlieb LPN) 2034 (Given - Provider: Krupa Gottlieb LPN) umeclidinium [place] (INCRUSE ellipta) 62.5 MCG/ACT inhaler 1 Puff 1 Puff, Inhalation, RESPDAILY, First dose on Mon01/01/23 at 1000, Until Discontinued, NURSING TO FOLLOW PATIENT WITH MDI/DPI ADMINISTRATION 0811 (Given - Provider: Odilia Womack, RN) 1448 (Given - Provider: Quin Hirsch, RN) 0911 (Given - Provider: Zia Medeiros, RN) Continuous Medication Order 01/01/2023 01/02/2023 01/03/2023 isolyte-S pH 7.4 infusion Intravenous, at 75 mL/hr, Plasma-LYTE 148, isolyte-S, and isolyte-S pH 7.4 are considered equivalent - including for MAR barcode scanning., CONTINUOUS, Starting on Mon01/01/23 at 1545, Until Mon01/03/23 at 2036 1526 (New Bag - Provider: Odilia Womack, RN) 1138 (New Bag - Provider: Zia Medeiros, RN) isolyte-S pH 7.4 infusion () Intravenous, at 25 mL/hr, Plasma-LYTE 148, isolyte-S, and isolyte-S pH 7.4 are considered equivalent - including for MAR barcode scanning., CONTINUOUS, Starting on Mon01/02/23 at 1215, Until Mon01/02/23 at 1514, Pre-Op 1147 (New Bag - Provider: Janell Mares RN)1215 (Not Given - Provider: Quin Hirsch, RN - Reason: Other-Notify Provider - Comment: order )1225 (Continue from Pre-Op - Provider: Mary Strauss CRNA)1315 (Paused - Provider: Mary Strauss CRNA - Comment: Switch to gravity)1316 (Restarted - Provider: Mary Strauss CRNA) Pantoprazole (Protonix) 80 mg in NSS 500 mL INFUSION Intravenous, at 50 mL/hr, CONTINUOUS, Starting on 12/31/22 at 2145, Until Mon01/03/23 at 2036 0655 (New Bag - Provider: Krupa Gottlieb LPN) 0515 (New Bag - Provider: Krupa Gottlieb LPN) 1138 (New Bag - Provider: Zia Medeiros, NELLIE) PRN Medication Order 01/01/2023 01/02/2023 01/03/2023 albuterol (VENTOLIN HFA/PROVENTIL HFA) inhaler 2 Puff, Inhalation, Q6H PRN Dyspnea, Starting on 01/01/23 at 0701, Until Mon01/03/23 at 2036, Shake can for 10 seconds before each puff SEND INHALER WITH PATIENT! WASTE INFO ( IF NOT SENT HOME WITH PATIENT) : Return unused medication to pharmacy in zip lock bag for disposal into black container labeled SP. sodium chloride 0.9 % flush/inj 3 mL 3 mL, IV Push, PRN Other, Line Patency, Starting on Mon12/31/22 at 2024, Until Mon01/03/23 at 2036, Do not flush if lock, PICC, or central line not in place, IV infusing or unable to flush 1710 (Given - Provider: Odilia Womack RN) traMADol (Ultram) tab 100 mg 100 mg, Oral, Q6H PRN Pain, Moderate, Pain, Severe, Starting on 12/31/22 at 2113, Until Mon01/03/23 at 2036 0820 (Given - Provider: Odilia Womack RN)210 (Given - Provider: Krupa Gottlieb LPN) 2034 (Given - Provider: Krupa Gottlieb LPN) 0929 (Given - Provider: Zia Medeiros, NELLIE) documented in this encounter Advance Directives Latest [...] the patient have Health Care Power of Access Lead? No Care Teams Director Clinical Operations Relationship Specialty Start Date End Date Reggie Eddy, [place] [facility] [place] [address] PCP - General Internal Medicine 03/08/22 documented as of this encounter
--- OUTSIDE RECORDS SUMMARY | 2023-03-19 22:28 | External Medical Summary | Summary of Care ---
Author Name Unknown Organization [facility] Address [address] [place] [address] Phone [phone] Care Team Providers Care Milking Machine Operator Name Role Phone Reggie Eddy DO Primary Care Provid er Reason for Visit * Reason Comments Outpatient Testing Encounter Details Date Type Department Care Team Description 01/10/2023 Laboratory [facility] [id number] [address] Hypomagnesemia; Hypokalemia; Normocytic anemia; Hematochezia; Hospital discharge follow-up; Anemia associated with acute blood loss Allergies Active Allergy Reactions Severity Noted Date [...] Active Additional Information Patient taking differently:3 mL [id number] PRN, Dyspnea, Reported on 12/21/2022 Mycophenolate Mofetil [...] o Lost to follow up- moved to [place] o 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 dsDNA borderline. [place] unlikely SLE. o 2012: Seen again by Rheum- Dr. Jung- photosensitive rash and raynauds. Borderline dsDNA. [place] likely SLE, though possible AIH could explain (+) MARY. HCQ discussed but wanted to avoid by GI. o [phone]: multiple hospitalizations for ascites; returned to Rheum [...] Description 01/23/2023 Appointment Radiology 01/23/2023 Nurse Only Nurse Naya [facility] [address], [place] [id number] 02/14/2023 Office Visit Family Medicine Reggie Eddy DO [address] [place] [address] 03/16/2023 Office Visit Pulmonary Twin Hayden MD [address] [place], [place] [phone] 07/03/2023 Telemedicine Ophthalmology Fran French DO [address] [place] [address] Pending Results Name Type Priority Associated Diagnoses Date /Time MAGNESIUM Lab Routine Hypomagnesemia Hypokalemia 01/10/2023 10:58 AM EDT CBC WITH WBC DIFFERENTIAL AND ANEMIA REFLEX WORKUP Lab Routine Hematochezia Hospital discharge follow-up Anemia associated with acute blood loss 01/10/2023 10:58 AM EDT IRON SCREEN, INCLUDING TIBC Lab Routine Hematochezia Hospital discharge follow-up Anemia associated with acute blood loss 01/10/2023 10:58 AM EDT ANEMIA CBC Lab Routine Hematochezia Hospital discharge follow-up Anemia associated with acute blood loss 01/10/2023 10:58 AM EDT DIFFERENTIAL, AUTOMATED Lab Routine Hematochezia Hospital discharge follow-up Anemia associated with acute blood loss 01/10/2023 10:58 AM EDT ANEMIA REFLEX CHEMISTRY HOLD Lab Routine Hematochezia Hospital discharge follow-up Anemia associated with acute blood loss 01/10/2023 10:58 AM EDT Scheduled Procedures Name Priority Associated Diagnoses Date/Ti [...] this encounter Medical Devices Implanted Type Area Linotype Machinist Device Identifier Shelf Expiration Date Model / Serial / Lot Lens 22.0 Sa60at - [id number] Implanted:Qty: 1 on 10/15/2012 at OR [facility] Left: Eye [employer] 10/07/2016 SA60AT / [id number] / Lens 22.0 Sa60at - [id number] Implanted:Qty: 1 on 11/29/2012 at OR [facility] Right: Eye [employer] 03/31/2017 SA60AT / [id number] / Duraclip 11mm Repositionable - [id number] Implanted:Qty: 1 on 05/11/2022 by Jeffrey Weber MD at ENDOSCOPY [facility] Typeform [id number] 01/29/2024 [id number] / / [id number] documented as of this encounter Visit Diagnoses Diagnosis Hypomagnesemia Disorders of magnesium metabolism Hypokalemia Hypopotassemia Normocytic anemia Anemia, unspecified Hematochezia Blood in stool Hospital discharge follow-up Other follow-up examination Anemia associated with acute blood loss Acute posthemorrhagic anemia documented in this encounter Advance Directives Latest [...] the patient have Health Care Power of Tire Technician? No Care Teams Milking Machine Operator Relationship Specialty Start Date End Date Reggie Eddy, [place] [address] PCP - General Internal Medicine 03/08/22 documented as of this encounter
--- OUTSIDE RECORDS SUMMARY | 2023-03-19 22:28 | External Medical Summary | Summary of Care ---
Author Name Unknown Organization [facility] Address [address] [place] [address] Phone [phone] Care Team Providers Care Detention Attendant Name Role Phone Reggie Eddy DO Primary Care Provid er Reason for Visit * Reason Onset Date Comments Hospital Follow-Up 01/04/2023 Encounter Details Date Type Department Care Team Description 01/04/[address] [address] Liseth Webb RN Hospital Follow-Up Allergies Active Allergy Reactions Severity Noted Date Comments Hydromorphone Hcl Itching Medium 11/09/2015 Environmental Low 05/04/2010 Pollen -asthmatic attacks documented as of this encounter (statuses as of 01/05/2023) Medications Medication Sig Dispensed Refills Start Date [...] Active Additional Information Patient taking differently:3 mL [id number] PRN, Dyspnea, Reported on 12/21/2022 Mycophenolate Mofetil [...] as of this encounter (statuses as of 01/05/2023) Active Problems Problem Noted Date Hematochezia 01/02/2023 [...] typical SLE sx- negative/normal C3/C4, SSA/SSB, centromere, DOCTOR OF NATUROPATHIC MEDICINE/Sm, ESR,CRP. dsDNA borderline. [place] unlikely SLE. o 2012: Seen again by Rheum- Dr. Jung- photosensitive rash and raynauds. Borderline dsDNA. [place] likely SLE, though possible AIH could explain (+) MARY. HCQ discussed but wanted to avoid by GI. o [phone]: multiple hospitalizations for ascites; returned to Rheum [...] as of this encounter (statuses as of 01/05/2023) Resolved Problems Problem Noted Date Resolved Date [...] as of this encounter (statuses as of 01/05/2023) Immunizations Name Administration Dates Next Due HEP [...] encounter Miscellaneous Notes * Telephone Encounter - Liseth Webb RN - 01/05/2023 10:24 AM EDT Transitions of Care Note Attempt #2 Reason for Referral:Recent Admission Phone visit for follow up: JACOB Admitted to: [facility], Date: 12/31/22 Discharged to: Home, Date: 01/03/23 Diagnosis driving hospitalization: Bright red blood per rectum, hematochezia. Attempt made for JACOB call to patient, no answer, message left for patient to call back at [phone]. Also, left message for patient to call if they have any questions or concerns after hours or on the weekend before their follow-up appointment with their PCP. MyG message sent to patient. Liseth Webb RN * Telephone Encounter - Liseth Webb RN - 01/04/2023 11:47 AM EDT Transitions of Care Note Attempt #1 Reason for Referral:Recent Admission Phone visit for follow up: JACOB Admitted to: [facility], Date: 12/31/22 Discharged to: Home, Date: 01/03/23 Diagnosis driving hospitalization: Bright red blood per rectum, hematochezia. Attempt made for JACOB call to patient, no answer, message left for patient to call back at [phone]. Also, left message for patient to call if they have any questions or concerns after hours or on the weekend. Will attempt to call tomorrow. Liseth Webb RN documented in this encounter Plan of Treatment Upcoming Encounters Date Type Specialty Care Team Description 01/09/2023 Office Visit Ophthalmology Fran French DO [address], [place] [phone] 03/16/2023 Office Visit Pulmonary Twin Hayden MD [address] [place] [address] Scheduled Procedures Name Priority Associated [...] Comments DISCUSS TOBACCO CESSATION (REFER TO SMARTSET #3299) 1965 COVID-19 Vaccine (#1) 1970 Alpha-1 Antitrypsin [...] this encounter Medical Devices Implanted Type Area Spinning Machine Operator Device Identifier Shelf Expiration Date Model / Serial / Lot Lens 22.0 Sa60at - [id number] Implanted:Qty: 1 on 10/15/2012 at OR [facility] Left: Eye [employer] 10/07/2016 SA60AT / [id number] / Lens 22.0 Sa60at - [id number] Implanted:Qty: 1 on 11/29/2012 at OR [facility] Right: Eye [employer] 03/31/2017 SA60AT / [id number] / Duraclip 11mm Repositionable - [id number] Implanted:Qty: 1 on 05/11/2022 by Jeffrey Weber MD at ENDOSCOPY [facility] [employer] [id number] 01/29/2024 [id number] / / [id number] documented as of this encounter Advance [...] the patient have Health Care Power of Instructor Dancing? No Care Teams Detention Attendant Relationship Specialty Start Date End Date Reggie Eddy, [place] [place] [address] PCP - General Internal Medicine 03/08/22 documented as of this encounter
--- OUTSIDE RECORDS SUMMARY | 2023-03-19 22:28 | External Medical Summary ---
Author Name Unknown Address Unknown Organization K01:[facility] [address] [address] Laboratory Report Ordering Provider Test Date Status KATE HOLDER 01/12/2023 15:22:49 Final Observation Date Value Abnormality Reference (Units ) Status Iron 01/12/2023 15:22:49 63 33-151 (ug /dL) Final Iron-binding capacity 01/12/2023 15:22:49 309 250-425 (ug/dL) Final Transferrin Sat % 01/12/2023 15:22:49 20 15 -55 (%) Final Performing Location [facility] - [address] [place] [address]
--- OUTSIDE RECORDS SUMMARY | 2023-03-19 22:28 | External Medical Summary ---
Author Name Unknown Address Unknown Organization K01:[facility] [address] [facility] [address] Laboratory Report Ordering Provider Test Date Status KATE HOLDER 01/10/2023 10:58:31 Final Observation Date Value Abnormality Reference (Units ) Status Folic Acid 01/10/2023 10:58:31 10.2 >4.5 (ng/ mL) Final Result may be falsely elevat ed due to hemolysis. Performing Location [facility] - [address] [place] [address]
--- OUTSIDE RECORDS SUMMARY | 2023-03-19 22:29 | External Medical Summary ---
Author Name Unknown Address Unknown Organization [id number]:LABORATORY [facility] [place] [facility] - [address] [place] [address] Laboratory Report Ordering Provider Test Date Status REJI ASTORGA 12/31/2022 15:10:43 Final Observation Date Value Abnormality Reference (Units ) Status ABO 12/31/2022 15:10:43 AB Final RH 12/31/2022 15:10:43 Positive Final RED BLOOD CELL ANTIBODY SCREEN 12/31/2022 15:10:43 Negative Final SPECIMEN EXPIRATION DATE 12/31/2022 15:10:43 01/03/2023 23:59 Final Performing Location LAB[facility]ORY [facility] [place] [facility] - [address] [place] [address]
--- OUTSIDE RECORDS SUMMARY | 2023-03-19 22:29 | External Medical Summary ---
Author Name Unknown Address Unknown Organization [id number]:[facility] [place] [address] [facility] [address] Laboratory Report Ordering Provider Test Date Status IESHA MONTES 01/01/2023 05:57:00 Kati l Warfarin Therapy
INR: 2 .0-3.0 conventional anticoagulation
INR: 2.5- 3.5 high intensity anticoagulation Observation Date Value Abnormality Reference (Units ) Status PT 01/01/2023 05:57:00 14.4 11.6-15.2 (seconds) Final INR 01/01/2023 05:57:00 1.1 0.8-1.2 Final Performing Location [facility] [place] [facility] [address] [facility] [address]
--- OUTSIDE RECORDS SUMMARY | 2023-03-19 22:29 | External Medical Summary | Summary of Care ---
Author Name Unknown Organization [facility] Address [address] [place] [address] Phone [phone] Care Team Providers Care Tearoom Host Name Role Phone Reggie Eddy DO Primary Care Provid er Encounter Details Date Type Department Care Team Description 12/31/2022 Telephone [facility] [place] Medicine [address] [place] [address] Sabra Mccoy MD [address] [facility] [place] [address] Allergies Active Allergy Reactions Severity Noted Date Comments Hydromorphone Hcl Itching Medium 11/09/2015 Environmental Low 05/04/2010 Pollen -asthmatic attacks documented as of this encounter (statuses as of 01/01/2023) Medications Medication Sig Dispensed Refills Start Date End Date Status Ascorbic Acid (VITAMIN C-CORWIN HIPS) 1000 MG TABS Take 1 Tablet by mouth in the morning. 0 Suspended Ferrous Sulfate 325 (65 Fe) MG Oral Tablet (Feosol) Take 1 Tab by mouth 2 times a day. 60 Tab 11 06/13/2020 Suspended Additional Information Nebulizer Device For use with duoneb treatment 1 Each 0 06/13/2020 Suspended Additional Information Calcium Citrate 200 MG Oral TabletIndications:H ypocalcemia Take 400 mg by mouth 2 times a day. 120 Tab 0 10/09/2020 Suspended Additional Information Lactulose 10 GM/15ML Oral Solution (Constulose)Indicat ions:Cirrhosis of liver with ascites, unspecified hepatic cirrhosis type (HCC) TAKE 30 ML BY MOUTH 3 TIMES A DAY 2838 mL 5 05/10/2021 Suspended Additional Information Patient taking differently: 20 g Oral PRN, Constipation, Reported on 12/21/2022 Magnesium Chloride 64 MG Oral Tablet Delayed Release (Mag-64)Indications :Hypomagnesemia Take by mouth 4 Tablets in the morning. 360 Tablet 3 10/25/2021 Suspended Additional Information Klor-Con M20 20 MEQ Oral Tablet Extended Release (Potassium Chloride Gianna ER) TAKE 2 TABLETS BY MOUTH IN THE MORNING. 180 Tablet 1 11/19/2021 Suspended Additional Information Albuterol Sulfate HFA 108 (90 Base) MCG/ACT Inhalation Aerosol SolutionIndications :Sinobronchitis Inhale 2 Puffs by mouth every 4 hours as needed for Shortness of Breath or Wheezing. 18 g 5 03/11/2022 Suspended Additional Information Spiriva HandiHaler 18 MCG Inhalation Capsule (tiotropium bromide) Inhale 1 Capsule by mouth in the morning. . Do not swallow capsule.. 30 Capsule 5 05/20/2022 Suspended Additional Information Omeprazole 20 MG Oral Capsule Delayed Release (PriLOSEC)Indicatio ns: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 Take 1 Capsule by mouth in the morning. 90 Capsule 1 06/20/2022 Suspended Additional Information Gabapentin 300 MG Oral Capsule (Neurontin)Indicati ons:DDD (degenerative disc disease), cervical,DDD (degenerative disc disease), thoracic,DDD (degenerative disc disease), lumbar Take 2 Capsules by mouth at bedtime. Take one cap by mouth at bedtime for two weeks, then may increase to 2 caps at bedtimes 180 Capsule 1 06/20/2022 Suspended Additional Information Fluticasone Furoate-Vilanterol 200-25 MCG/ACT Inhalation Aerosol Powder Breath Activated (BREO ellipta) Inhale 1 Puff by mouth in the morning. 60 Each 11 09/08/2022 Suspended Additional Information Ambrisentan 10 MG Oral Tablet (Letairis)Indicatio ns:PAH (pulmonary artery hypertension) (HCC) TAKE 1 TABLET BY MOUTH 1 TIME A DAY. DO NOT HANDLE IF . DO NOT SPLIT, CRUSH, OR CHEW. AVOID INHALATION AND CONTACT WITH SKIN OR EYES. 30 Tablet 5 09/08/2022 Suspended Additional Information Torsemide 20 MG Oral Tablet (Demadex)Indication s:Cirrhosis of liver with ascites, unspecified hepatic cirrhosis type (HCC) Take 2 Tablets by mouth in the morning. TAKE 2 TABLETS BY MOUTH EVERY DAY IN THE MORNING Strength: 20 mg. 180 Tablet 3 09/08/2022 Suspended Additional Information Ipratropium-Albuter ol 0.5-2.5 (3) MG/3ML Inhalation Solution (Duoneb) Inhale 3 mL via nebulizer in the morning and 3 mL at noon and 3 mL in the evening and 3 mL before bedtime. 3600 mL 11 09/09/2022 Suspended Additional Information Patient taking differently:3 mL [id number] PRN, Dyspnea, Reported on 12/21/2022 Mycophenolate Mofetil 500 MG Oral Tablet (Cellcept)Indicatio ns:Autoimmune hepatitis (HCC) Take 1 Tablet by mouth in the morning and 1 Tablet before bedtime. 180 Tablet 1 09/09/2022 Suspended Additional Information Fluticasone Propionate 50 MCG/ACT Nasal Suspension (Flonase)Indication s:Nasal congestion Administer 2 Sprays into nostril in the morning. 48 mL 3 09/09/2022 Suspended Additional Information Spironolactone 100 MG Oral Tablet (Aldactone)Indicati ons:Esophageal varices in cirrhosis (HCC) TAKE 1 AND 1/2 TABLETS BY MOUTH EVERY DAY 135 Tablet 1 09/25/2022 Suspended Additional Information Patient taking differently: 150 mg Oral Daily(AM), TAKE 1 AND 1/2 TABLETS BY MOUTH EVERY DAY, Reported on 12/21/2022 traZODone HCl 50 MG Oral Tablet (Desyrel)Indication s:Primary insomnia Take 1 Tablet by mouth at bedtime. 90 Tablet 1 09/30/2022 Suspended Additional Information Levothyroxine Sodium 150 MCG Oral Tablet (Levoxyl)Indication s:Postoperative hypothyroidism TAKE 1 TABLET BY MOUTH DAILY IN THE MORNING. (AT LEAST 30 MIN PRIOR TO BREAKFAST OR OTHER MEDS) 90 Tablet 1 11/23/2022 Suspended Additional Information Nadolol 40 MG Oral Tablet (Corgard)Indication s:Rectal varices,Esophageal varices in cirrhosis (HCC) TAKE 1 TABLET BY MOUTH EVERY DAY IN THE MORNING 90 Tablet 1 11/23/2022 Suspended Additional Information traMADol HCl 50 MG Oral Tablet (Ultram)Indications :MEDICATION USE AGREEMENT,DDD (degenerative disc disease), cervical,DDD (degenerative disc disease), thoracic,DDD (degenerative disc disease), lumbar Take 2 Tablets by mouth every 6 hours as needed for Pain, Moderate. 240 Tablet 0 12/20/2022 Suspended Additional Information Tadalafil (PAH) 20 MG Oral Tablet Take 2 Tablets by mouth in the morning. 30 Tablet 11 12/30/2022 Suspended Additional Information oxygen IN GAS 2 liters at night, at rest, and with ambulation 1 Each 0 12/30/2022 Suspended Additional Information documented as of this encounter (statuses as of 01/01/2023) Active Problems Problem Noted Date Lactic acidosis 12/31/2022 Iron deficiency anemia due to chronic bl ood loss 12/22/2022 Shock 12/21/2022 Pleural effusion 12/21/2022 Acute pulmonary edema 12/21/2022 Acute on chronic anemia 12/21/2022 Pain of upper abdomen 12/21/2022 Immunodeficiency [...] typical SLE sx- negative/normal C3/C4, SSA/SSB, centromere, SENIOR INVESTMENT ANALYST/Sm, ESR,CRP. dsDNA borderline. [place] unlikely SLE. o 2012: Seen again by Rheum- Dr. Jung- photosensitive rash and raynauds. Borderline dsDNA. [place] likely SLE, though possible AIH could explain (+) MARY. HCQ discussed but wanted to avoid by GI. o [id number]: multiple hospitalizations for ascites; returned to Rheum [...] as of this encounter (statuses as of 01/01/2023) Resolved Problems Problem Noted Date Resolved Date [...] as of this encounter (statuses as of 01/01/2023) Immunizations Name Administration Dates Next Due HEP [...] deaf or do you have serious difficulty hearing? No 12/21/2022 Are you blind or do you have serious difficulty seeing, even when wearing glasses? No 12/21/2022 Do you have serious difficul ty walking or climbing stairs? (5 years old or older) Yes-Was having some difficulty due to dizziness and back pain 12/21/2022 Do you have difficulty dress ing or bathing? (5 years old or older) No 12/21/2022 Because of a physical, menta l, or emotional condition, do you have difficulty doing errands alone such as visiting a doctor s office or shopping? (15 years old or older) No 12/21/2022 Cognitive Status Response Date of Assessm ent Because of a physical, menta l, or emotional condition, do you have serious difficulty concentrating, remembering, or making decisions? (5 years old or older No 12/21/2022 documented as of this encounter Miscellaneous Notes * Telephone Encounter - Sabra Mccoy MD - 12/31/2022 12:06 PM EDT Received a phone call from Jazmín that she had a large blood bowel movement this morning. She deniespain, dizziness, or shortness of breath and states that her oxygen saturations have been good. She was recently admitted to the ICU for a GI bleed and underwent a polypectomy. I instructed her to go to the nearest ER which is [place] and if she felt symptoms or continued to bleed to call an ambulance. She stated she would leave now. She lives [place].5 hours from [facility] [place]. documented in this encounter Plan of Treatment Upcoming Encounters Date Type Specialty Care Team Description 01/04/2023 Office Visit Family Medicine Reggie Eddy, DO [address] [place] [address] 01/04/2023 Telemedicine Endocrinology Gilbert Hawkins MD [address] [place] [address] 01/09/2023 Office Visit Ophthalmology Fran French DO [address] [place] [address] 03/16/2023 Office Visit Pulmonary Twin Hayden MD [address] [place] [address] Scheduled Procedures Name Priority Associated Diagnoses Date/Ti [...] Comments DISCUSS TOBACCO CESSATION (REFER TO SMARTSET #0295) 1965 COVID-19 Vaccine (#1) 1970 Alpha-1 Antitrypsin [...] ASSESSMENT COMPLETED IN PAST YEAR FOR COPD 12/24/2023 12/23/2022 Lipid Panel 02/29/2024 02/28/2019, 11/08, 10/08/2012, Additional history exists DTaP,Tdap,and Td Vaccines (2 - Td or Tdap) 08/18/2024 08/18/2014 COLONOSCOPY-EVERY 3 YRS AGES 18-100 12/23/2025 12/23/2022, 12/23/2022, 05/11/2022, Additional history exists Hepatitis B Completed 09/15/2015, 12/09, 10/08/2012 COLONOSCOPY-EVERY 5 YRS AGES 18-100 Discontinued 12/23/2022, 12/23/2022, 05/11/2022, Additional history exists GARDASIL-HPV IMMUNIZATION SERIES Aged Out No longer eligible based on patient's age to complete this topic MENINGOCOCCAL (MENACTRA/MENVEO) Aged Out No longer eligible based on patient's age to complete this topic documented as of this encounter Medical Devices Implanted Type Area Is Technician Device Identifier Shelf Expiration Date Model / Serial / Lot Lens 22.0 Sa60at - [id number] Implanted:Qty: 1 on 10/15/2012 at OR [facility] Left: Eye [employer] 10/07/2016 SA60AT / [id number] / Lens 22.0 Sa60at - [id number] Implanted:Qty: 1 on 11/29/2012 at OR [facility] Right: Eye [employer] 03/31/2017 SA60AT / [id number] / Duraclip 11mm Repositionable - [id number] Implanted:Qty: 1 on 05/11/2022 by Jeffrey Weber MD at ENDOSCOPY [facility] [employer] [id number] 01/29/2024 [id number] / / [id number] documented as of this encounter Advance Directives Latest Code Status on File Code Status Date Activated Date Inactivated Comments Full Code 12/31/2022 8:37 PM This order reflects the patients [...] the patient have Health Care Power of Polysom Tech? No Care Teams Tearoom Host Relationship Specialty Start Date End Date Reggie Eddy, [address] [place] [id number] PCP - General Internal Medicine 03/08/22 documented as of this encounter
--- OUTSIDE RECORDS SUMMARY | 2023-03-19 22:29 | External Medical Summary ---
Author Name Unknown Address Unknown Organization K01:[place] [place] [address] [facility] [address] Laboratory Report Ordering Provider Test Date Status IESHA MONTES 12/31/2022 20:25:00 Kati l Observation Date Value Abnormality Reference (Units ) Status BUN 12/31/2022 20:25:00 12 6-20 (mg/dL) Final Creatinine 12/31/2022 20:25:00 0.9 0.5-1.0 (mg/dL) Final Glomerular filtration rate/1.73 sq M.predicted [Volume Rate/Area] in Serum, Plasma or Blood by Creatinine-based formula (CKD-EPI) 12/31/2022 20:25:00 77 >=60 (mL/min) Final eGFR is calculated based on the CKD-EPI 2020 equation SODIUM 12/31/2022 20:25:00 135 135-146 (m mol/L) Final Potassium 12/31/2022 20:25:00 4.1 3.5-5.1 (m mol/L) Final Cl 12/31/2022 20:25:00 99 98-107 (mm ol/L) Final CO2 12/31/2022 20:25:00 24 22-32 (mmo l/L) Final Anion gap 12/31/2022 20:25:00 12 7-15 (mmol /L) Final Glucose 12/31/2022 20:25:00 91 70-120 (mg /dL) Final Calcium 12/31/2022 20:25:00 8.1 Below low normal 8.4 -10.2 (mg/dL) Final Performing Location [facility] [place] [address] [place] [address]
--- OUTSIDE RECORDS SUMMARY | 2023-03-19 22:29 | External Medical Summary ---
Author Name Unknown Address Unknown Organization K01:[place] [place] [address] [place] [address] Laboratory Report Ordering Provider Test Date Status IESHA MONTES 01/02/2023 09:42:00 Kati hoyt Observation Date Value Abnormality Reference (Units ) Status Magnesium 01/02/2023 09:42:00 1.7 1.5-2.6 (m g/dL) Final Performing Location LABORATORY [facility] - [address] [place] [address]
--- OUTSIDE RECORDS SUMMARY | 2023-03-19 22:29 | External Medical Summary ---
Author Name Unknown Address Unknown Organization K1G:LABORATORY [facility] - [address] [place] [id number] Laboratory Report Ordering Provider Test Date Status REJI ASTORGA 12/31/2022 15:10:43 Final Observation Date Value Abnormality Reference (Units ) Status Magnesium 12/31/2022 15:10:43 1.8 1.5-2.6 (m g/dL) Final Performing Location LABORATORY [facility] - [address] [place] [phone]
--- OUTSIDE RECORDS SUMMARY | 2023-03-19 22:29 | External Medical Summary ---
Author Name Unknown Address Unknown Organization K01:[facility]ATORY [facility] [place] - [address] [facility] [address] Laboratory Report Ordering Provider Test Date Status IESHA MONTES 01/02/2023 09:42:00 Kati l Observation Date Value Abnormality Reference (Units ) Status BUN 01/02/2023 09:42:00 8 6-20 (mg/dL) Final Creatinine 01/02/2023 09:42:00 0.7 0.5-1.0 (mg/dL) Final Glomerular filtration rate/1.73 sq M.predicted [Volume Rate/Area] in Serum, Plasma or Blood by Creatinine-based formula (CKD-EPI) 01/02/2023 09:42:00 >90 >=60 (mL/min) Final eGFR is calculated based on the CKD-EPI 2020 equation SODIUM 01/02/2023 09:42:00 139 135-146 (m mol/L) Final Potassium 01/02/2023 09:42:00 3.1 Below low normal 3.5 -5.1 (mmol/L) Final Cl 01/02/2023 09:42:00 107 98-107 (mm ol/L) Final CO2 01/02/2023 09:42:00 23 22-32 (mmo l/L) Final Anion gap 01/02/2023 09:42:00 9 7-15 (mmol /L) Final Glucose 01/02/2023 09:42:00 97 70-120 (mg /dL) Final Calcium 01/02/2023 09:42:00 8.1 Below low normal 8.4 -10.2 (mg/dL) Final Performing Location LAB[facility]ATORY [facility] [place] - [address] [place] [address]
--- OUTSIDE RECORDS SUMMARY | 2023-03-19 22:29 | External Medical Summary ---
Author Name Unknown Address Unknown Organization K1G:LABORATORY [facility] - [address] [place] [phone] Laboratory Report Ordering Provider Test Date Status GAURIYOSELINLEENA 12/31/2022 15:10:43 Final Observation Date Value Abnormality Reference (Units ) Status WBC, Total 12/31/2022 15:10:43 9.97 4.00-10.8 0 (K/uL) Final RBC 12/31/2022 15:10:43 3.58 3.85-5.15 (M/uL) Final Hemoglobin 12/31/2022 15:10:43 8.8 Below low normal 12 .0-15.3 (g/dL) Final HCT 12/31/2022 15:10:43 30.1 Below low normal 36. 0-45.2 (%) Final MCV 12/31/2022 15:10:43 84.1 81.5-97.5 (fL) Final MCH 12/31/2022 15:10:43 24.6 27.0-34.0 (pg) Final MCHC 12/31/2022 15:10:43 29.2 32.0-36.0 (g/dL) Final RDW 12/31/2022 15:10:43 31.3 11.5-15.5 (%) Final Platelets 12/31/2022 15:10:43 329 140-400 (K /uL) Final MPV 12/31/2022 15:10:43 10.8 6.6-11.1 ( fL) Final Performing Location LABORATORY [facility] - [address] [place] [phone]
--- OUTSIDE RECORDS SUMMARY | 2023-03-19 22:29 | External Medical Summary ---
Author Name Unknown Address Unknown Organization K01:LABORATORY [facility] [place] - [address] [facility] [id number] Laboratory Report Ordering Provider Test Date Status ADOLFO WALKER 01/01/2023 22:13:00 Final Observation Date Value Abnormality Reference (Units ) Status WBC, Total 01/01/2023 22:13:00 6.35 4.00-10.80 (K/uL) Final RBC 01/01/2023 22:13:00 3.79 3.85-5.15 (M/uL) Final Hemoglobin 01/01/2023 22:13:00 9.4 Below low normal 12.0-15.3 (g/dL) Final HCT 01/01/2023 22:13:00 32.9 Below low normal 36.0-45.2 (%) Final MCV 01/01/2023 22:13:00 86.8 81.5-97.5 (fL) Final MCH 01/01/2023 22:13:00 24.8 27.0-34.0 (pg) Final MCHC 01/01/2023 22:13:00 28.6 32.0-36.0 (g/dL) Final RDW 01/01/2023 22:13:00 29.0 11.5-15.5 (%) Final Platelets 01/01/2023 22:13:00 291 140-400 (K/uL) Final MPV 01/01/2023 22:13:00 10.5 6.6-11.1 (fL) Final Nucleated erythrocytes/100 leukocytes [Ratio] in Blood by Automated count 01/01/2023 22:13:00 0 <=0 (/100 WBCs) Final Performing Location LABORATORY [facility] [place] - [address] [facility] [id number]
--- OUTSIDE RECORDS SUMMARY | 2023-03-19 22:29 | External Medical Summary ---
Author Name Unknown Address Unknown Organization K01:[place] [place] [facility] [address] [facility] [address] Laboratory Report Ordering Provider Test Date Status IESHA MONTES 01/02/2023 09:42:00 Kati l Observation Date Value Abnormality Reference (Units ) Status WBC, Total 01/02/2023 09:42:00 4.71 4.00-10.80 (K/uL) Final RBC 01/02/2023 09:42:00 3.72 3.85-5.15 (M/uL) Final Hemoglobin 01/02/2023 09:42:00 9.4 Below low normal 12.0-15.3 (g/dL) Final HCT 01/02/2023 09:42:00 32.7 Below low normal 36.0-45.2 (%) Final MCV 01/02/2023 09:42:00 87.9 81.5-97.5 (fL) Final MCH 01/02/2023 09:42:00 25.3 27.0-34.0 (pg) Final MCHC 01/02/2023 09:42:00 28.7 32.0-36.0 (g/dL) Final RDW 01/02/2023 09:42:00 28.9 11.5-15.5 (%) Final Platelets 01/02/2023 09:42:00 274 140-400 (K/uL) Final MPV 01/02/2023 09:42:00 10.6 6.6-11.1 (fL) Final Nucleated erythrocytes/100 leukocytes [Ratio] in Blood by Automated count 01/02/2023 09:42:00 0 <=0 (/100 WBCs) Final Performing Location [facility] [place] [address] [place] [address]
--- OUTSIDE RECORDS SUMMARY | 2023-03-19 22:29 | External Medical Summary ---
Author Name Unknown Address Unknown Organization K01:[facility] [place] - [address] [place] [address] Laboratory Report Ordering Provider Test Date Status IESHA MONTES 01/01/2023 05:57:00 Kati l Observation Date Value Abnormality Reference (Units ) Status Phosphate 01/01/2023 05:57:00 4.4 2.5-4.8 (m g/dL) Final Performing Location LABORATORY [facility] - [address] [place] [address]
--- OUTSIDE RECORDS SUMMARY | 2023-03-19 22:29 | External Medical Summary | Summary of Care ---
Author Name Unknown Organization [facility] Address [address] [place] [address] Phone [phone] Care Team Providers Care Ground Operations Supervisor Name Role Phone Reggie Eddy DO Primary Care Provid er Reason for Visit * Reason Onset Date Comments Hospital Follow-Up 01/02/2023 Encounter Details Date Type Department Care Team Description 01/02/[address] [phone] Reggie Eddy DO [address] [place] [phone] Hospital Follow-Up Allergies Active Allergy Reactions Severity Noted Date Comments Hydromorphone Hcl Itching Medium 11/09/2015 Environmental Low 05/04/2010 Pollen -asthmatic attacks documented as of this encounter (statuses as of 01/02/2023) Medications Medication Sig Dispensed Refills Start Date [...] Suspended Additional Information Patient taking differently:3 mL [id number] PRN, Dyspnea, Reported on 12/21/2022 Mycophenolate Mofetil [...] as of this encounter (statuses as of 01/02/2023) Active Problems Problem Noted Date Lactic acidosis [...] o Lost to follow up- moved to [place] o 2009: 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 dsDNA borderline. [place] unlikely SLE. o 2012: Seen again by Rheum- Dr. Jung- photosensitive rash and raynauds. Borderline dsDNA. [place] likely SLE, though possible AIH could explain (+) MARY. HCQ discussed but wanted to avoid by GI. o [phone]: multiple hospitalizations for ascites; returned to Rheum [...] as of this encounter (statuses as of 01/02/2023) Resolved Problems Problem Noted Date Resolved Date [...] as of this encounter (statuses as of 01/02/2023) Immunizations Name Administration Dates Next Due HEP [...] stairs? (5 years old or older) No 12/31/2022 Do you have difficulty dress ing or [...] encounter Miscellaneous Notes * Telephone Encounter - Vira Rodriguez RN - 01/02/2023 7:57 AM EDT Transitions of Care Note Reason for Referral:Recent Admission Phone visit for follow up: JACOB Admitted to: [facility], Date: 12/21/22 Discharged to: Home, Date: 12/30/22 Diagnosis driving hospitalization: Shock No JACOB call indicated at this time, patient readmitted to [facility] day after this discharge. documented in this encounter Plan of Treatment Upcoming Encounters Date Type Specialty Care Team Description 01/04/2023 Office Visit Family Medicine Reggie Eddy, DO [address] [place] [id number] 01/04/2023 Telemedicine Endocrinology Gilbert Hawkins MD [address] [place] [address] 01/09/2023 Office Visit Ophthalmology Fran French DO [address] [place] [address] 03/16/2023 Office Visit Pulmonary Twin Hayden MD [address] [place] [address] Scheduled Procedures Name Priority Associated Diagnoses Date/Ti me COLONOSCOPY FLEXIBLE PROXIMA L DIAGNOSTIC Hematochezia 01/02/2023 2:15 PM EDT ESOPHAGOGASTRODUODENOSCOPY ( EGD), FLEXIBLE, TRANSORAL, DIAGNOSTIC Recall [...] Comments DISCUSS TOBACCO CESSATION (REFER TO SMARTSET #3127) 1965 COVID-19 Vaccine (#1) 1970 Alpha-1 Antitrypsin [...] this encounter Medical Devices Implanted Type Area Digital Campaign Specialist Device Identifier Shelf Expiration Date Model / Serial / Lot Lens 22.0 Sa60at - [id number] Implanted:Qty: 1 on 10/15/2012 at OR [facility] Left: Eye [employer] 10/07/2016 SA60AT / [id number] / Lens 22.0 Sa60at - [id number] Implanted:Qty: 1 on 11/29/2012 at OR [facility] Right: Eye [employer] 03/31/2017 SA60AT / [id number] / Duraclip 11mm Repositionable - [id number] Implanted:Qty: 1 on 05/11/2022 by Jeffrey Weber MD at ENDOSCOPY [facility] [employer] [id number] 01/29/2024 [id number] / / [id number] documented as of this encounter Advance [...] the patient have Health Care Power of Funeral Home Attendant? No Care Teams Ground Operations Supervisor Relationship Specialty Start Date End Date Reggie Eddy, [address] [address] PCP - General Internal Medicine 03/08/22 documented as of this encounter
--- OUTSIDE RECORDS SUMMARY | 2023-03-19 22:29 | External Medical Summary ---
Author Name Unknown Address Unknown Organization [id number]:LABORATORY [facility] - [address] [place] [address] Laboratory Report Ordering Provider Test Date Status IESHA MONTES 01/03/2023 09:05:00 Kati l Observation Date Value Abnormality Reference (Units ) Status Phosphate 01/03/2023 09:05:00 2.1 Below low normal 2.5 -4.8 (mg/dL) Final Performing Location LABORATORY [facility] - [address] [place] [address]
--- OUTSIDE RECORDS SUMMARY | 2023-03-19 22:29 | External Medical Summary ---
Author Name Unknown Address Unknown Organization [id number]:LABORATORY [facility] - [facility] [address] [facility] [address] Laboratory Report Ordering Provider Test Date Status IESHA MONTES 12/31/2022 20:25:00 Jamarcus ection Observation Date Value Abnormality Reference (Units ) Status WBC, Total 12/31/2022 20:25:00 9.64 4.00-10.80 (K/uL) Final RBC 12/31/2022 20:25:00 4.08 3.85-5.15 (M/uL) Final Hemoglobin 12/31/2022 20:25:00 10.1 Below low normal 12.0-15.3 (g/dL) Final HCT 12/31/2022 20:25:00 36.8 36.0-45.2 (%) Final MCV 12/31/2022 20:25:00 90.2 81.5-97.5 (fL) Final MCH 12/31/2022 20:25:00 24.8 27.0-34.0 (pg) Final MCHC 12/31/2022 20:25:00 27.4 32.0-36.0 (g/dL) Final RDW 12/31/2022 20:25:00 29.1 11.5-15.5 (%) Final Platelets 12/31/2022 20:25:00 297 140-400 (K/uL) Final MPV 12/31/2022 20:25:00 10.4 6.6-11.1 (fL) Final Nucleated erythrocytes/100 leukocytes [Ratio] in Blood by Automated count 12/31/2022 20:25:00 0 <=0 (/100 WBCs) Final Performing Location LABORATORY [facility] - [address] [place] [address]
--- OUTSIDE RECORDS SUMMARY | 2023-03-19 22:29 | External Medical Summary ---
Author Name Unknown Address Unknown Organization [id number]:LABORATORY [facility] - [address] [place] [id number] Laboratory Report Ordering Provider Test Date Status GAURICOOTE 12/31/2022 15:10:43 Final Observation Date Value Abnormality Reference (Units ) Status Lactic Acid, Whole Blood 12/31/2022 15:10:43 3.3 Above high normal 0.4-2.0 (mmol/L) Final Performing Location LABORATORY [facility] - [address] [place] [id number]
--- OUTSIDE RECORDS SUMMARY | 2023-03-19 22:29 | External Medical Summary ---
Author Name Unknown Address Unknown Organization K01:LABORATORY [facility] - [facility] [address] [facility] [address] Laboratory Report Ordering Provider Test Date Status IESHA MONTES 01/03/2023 09:05:00 Kati l Observation Date Value Abnormality Reference (Units ) Status WBC, Total 01/03/2023 09:05:00 6.23 4.00-10.80 (K/uL) Final RBC 01/03/2023 09:05:00 3.64 3.85-5.15 (M/uL) Final Hemoglobin 01/03/2023 09:05:00 9.2 Below low normal 12.0-15.3 (g/dL) Final HCT 01/03/2023 09:05:00 31.8 Below low normal 36.0-45.2 (%) Final MCV 01/03/2023 09:05:00 87.4 81.5-97.5 (fL) Final MCH 01/03/2023 09:05:00 25.3 27.0-34.0 (pg) Final MCHC 01/03/2023 09:05:00 28.9 32.0-36.0 (g/dL) Final RDW 01/03/2023 09:05:00 28.9 11.5-15.5 (%) Final Platelets 01/03/2023 09:05:00 288 140-400 (K/uL) Final MPV 01/03/2023 09:05:00 9.9 6.6-11.1 (fL) Final Nucleated erythrocytes/100 leukocytes [Ratio] in Blood by Automated count 01/03/2023 09:05:00 0 <=0 (/100 WBCs) Final Performing Location LABORATORY [facility] - [address] [place] [address]
--- OUTSIDE RECORDS SUMMARY | 2023-03-19 22:29 | External Medical Summary ---
Author Name Unknown Address Unknown Organization K01:LABORATORY [facility] - [address] [place] [address] Laboratory Report Ordering Provider Test Date Status IESHA MONTES 12/31/2022 20:25:00 Kati l Observation Date Value Abnormality Reference (Units ) Status Ovalocytes [Presence] in Blood by Light microscopy 12/31/2022 20:25:00 Moderate Abnormal None Seen Final Schistocytes 12/31/2022 20:25:00 Few Abnormal None Seen Final Target cells [Presence] in Blood by Light microscopy 12/31/2022 20:25:00 Moderate Abnormal None Seen Final Dacrocytes [Presence] in Blood by Light microscopy 12/31/2022 20:25:00 Moderate Abnormal None Seen Final Performing Location LABORATORY [facility] - [address] [place] [address]
--- OUTSIDE RECORDS SUMMARY | 2023-03-19 22:29 | External Medical Summary ---
Author Name Unknown Address Unknown Organization K01:LABORATORY [facility] - [facility] [address] [facility] [address] Laboratory Report Ordering Provider Test Date Status IESHA MONTES 01/01/2023 05:57:00 Kati l Observation Date Value Abnormality Reference (Units ) Status WBC, Total 01/01/2023 05:57:00 6.75 4.00-10.80 (K/uL) Final RBC 01/01/2023 05:57:00 3.27 3.85-5.15 (M/uL) Final Hemoglobin 01/01/2023 05:57:00 8.1 Below low normal 12.0-15.3 (g/dL) Final HCT 01/01/2023 05:57:00 27.9 Below low normal 36.0-45.2 (%) Final MCV 01/01/2023 05:57:00 85.3 81.5-97.5 (fL) Final MCH 01/01/2023 05:57:00 24.8 27.0-34.0 (pg) Final MCHC 01/01/2023 05:57:00 29.0 32.0-36.0 (g/dL) Final RDW 01/01/2023 05:57:00 28.3 11.5-15.5 (%) Final Platelets 01/01/2023 05:57:00 246 140-400 (K/uL) Final MPV 01/01/2023 05:57:00 10.5 6.6-11.1 (fL) Final Nucleated erythrocytes/100 leukocytes [Ratio] in Blood by Automated count 01/01/2023 05:57:00 0 <=0 (/100 WBCs) Final Performing Location LABORATORY [facility] - [address] [place] [address]
--- OUTSIDE RECORDS SUMMARY | 2023-03-19 22:29 | External Medical Summary ---
Author Name Unknown Address Unknown Organization K01:LABORATORY [facility] - [address] [facility] [address] Laboratory Report Ordering Provider Test Date Status IESHA MONTES 01/03/2023 09:05:00 Kati hoyt Warfarin Therapy
INR: 2 .0-3.0 conventional anticoagulation
INR: 2.5- 3.5 high intensity anticoagulation Observation Date Value Abnormality Reference (Units ) Status PT 01/03/2023 09:05:00 13.5 11.6-15.2 (seconds) Final INR 01/03/2023 09:05:00 1.0 0.8-1.2 Final Performing Location LABORATORY [facility] [address] [facility] [address]
--- OUTSIDE RECORDS SUMMARY | 2023-03-19 22:29 | External Medical Summary ---
Author Name Unknown Address Unknown Organization K01:[facility]ORY [facility] - [address] [facility] [address] Laboratory Report Ordering Provider Test Date Status ADOLFO WALKER 01/01/2023 13:07:00 Final Observation Date Value Abnormality Reference (Units ) Status WBC, Total 01/01/2023 13:07:00 6.60 4.00-10.80 (K/uL) Final RBC 01/01/2023 13:07:00 3.56 3.85-5.15 (M/uL) Final Hemoglobin 01/01/2023 13:07:00 8.9 Below low normal 12.0-15.3 (g/dL) Final HCT 01/01/2023 13:07:00 30.7 Below low normal 36.0-45.2 (%) Final MCV 01/01/2023 13:07:00 86.2 81.5-97.5 (fL) Final MCH 01/01/2023 13:07:00 25.0 27.0-34.0 (pg) Final MCHC 01/01/2023 13:07:00 29.0 32.0-36.0 (g/dL) Final RDW 01/01/2023 13:07:00 29.0 11.5-15.5 (%) Final Platelets 01/01/2023 13:07:00 260 140-400 (K/uL) Final MPV 01/01/2023 13:07:00 10.5 6.6-11.1 (fL) Final Nucleated erythrocytes/100 leukocytes [Ratio] in Blood by Automated count 01/01/2023 13:07:00 0 <=0 (/100 WBCs) Final Performing Location LAB[facility]ATORY [facility] - [address] [facility] [address]
--- OUTSIDE RECORDS SUMMARY | 2023-03-19 22:29 | External Medical Summary ---
Author Name Unknown Address Unknown Organization K1G:LABORATORY [facility] [address] Laboratory Report Ordering Provider Test Date Status GAURIYOSELINLEENA 12/31/2022 15:10:43 Final Observation Date Value Abnormality Reference (Units ) Status BUN 12/31/2022 15:10:43 12 6-20 (mg/dL) Final Creatinine 12/31/2022 15:10:43 1.0 0.5-1.0 (mg/dL) Final Glomerular filtration rate/1.73 sq M.predicted [Volume Rate/Area] in Serum, Plasma or Blood by Creatinine-based formula (CKD-EPI) 12/31/2022 15:10:43 67 >=60 (mL/min) Final eGFR is calculated based on the CKD-EPI 2020 equation SODIUM 12/31/2022 15:10:43 135 135-146 (m mol/L) Final Potassium 12/31/2022 15:10:43 4.4 3.5-5.1 (m mol/L) Final Cl 12/31/2022 15:10:43 101 98-107 (mm ol/L) Final CO2 12/31/2022 15:10:43 23 22-32 (mmo l/L) Final Anion gap 12/31/2022 15:10:43 11 7-15 (mmol /L) Final Glucose 12/31/2022 15:10:43 134 Above high normal 70 -120 (mg/dL) Final Albumin 12/31/2022 15:10:43 2.9 Below low normal 3.8 -5.0 (g/dL) Final AST (Aspartate aminotransferase) 12/31/2022 15:10:43 38 Above high normal 10-35 (U/L) Final Result may be falsely elevat ed due to hemolysis. Alk Phos 12/31/2022 15:10:43 92 35-130 (U/ L) Final Bilirubin, Total 12/31/2022 15:10:43 0.5 <=1 .2 (mg/dL) Final Calcium 12/31/2022 15:10:43 8.3 Below low normal 8.4 -10.2 (mg/dL) Final Protein 12/31/2022 15:10:43 6.5 6.0-8.3 (g /dL) Final ALT (Alanine aminotransferase) 12/31/2022 15:10:43 15 10-35 (U/L) Javed harkins Performing Location LABORATORY [facility] [address]
--- OUTSIDE RECORDS SUMMARY | 2023-03-19 22:29 | External Medical Summary ---
Author Name Unknown Address Unknown Organization K01:LABORATORY [facility] - [address] [facility] [address] Laboratory Report Ordering Provider Test Date Status IESHA MONTES 01/02/2023 09:42:00 Kati hoyt Warfarin Therapy
INR: 2 .0-3.0 conventional anticoagulation
INR: 2.5- 3.5 high intensity anticoagulation Observation Date Value Abnormality Reference (Units ) Status PT 01/02/2023 09:42:00 13.7 11.6-15.2 (seconds) Final INR 01/02/2023 09:42:00 1.0 0.8-1.2 Final Performing Location LABORATORY [facility] [address] [facility] [address]
--- OUTSIDE RECORDS SUMMARY | 2023-03-19 22:29 | External Medical Summary | Summary of Care ---
Author Name Unknown Organization [facility] Address [address] [place] [address] Phone [phone] Care Team Providers Care Licensed Marine Engineer Name Role Phone Reggie Eddy Primary Care Provid er Reason for Visit * Reason Comments Rectal Bleeding * Auth/Cert Specialty Diagnoses / Procedures Referred By Jordyn cano Referred To Contact Referral ID Status Reason Start Date Expiration Date Visits Re quested Visits Authorized [id number] Encounter Details Date Type Department Care Team Description 12/31/2022 Emergency [facility] Emergency [facility] ([facility]) [address] [place] [address] Rashid Stringer MD [address] [place] [address] Gastrointestinal hemorrhage, unspecified gastrointestinal hemorrhage type (Primary Dx); Acute blood loss anemia Allergies Active Allergy Reactions Severity Noted Date [...] Suspended Additional Information Patient taking differently:3 mL [id number] PRN, Dyspnea, Reported on 12/21/2022 Mycophenolate Mofetil [...] o Lost to follow up- moved to [place] o 2009: Dx with AIH: incomplete cirrhosis found incidentally at time of cholecystectomy when liver bx obtained; grade 1 varices; MARY , ASMA positive - Tx pred initially then Imuran 08/19 then MMF in 08/20 when she developed ascites o 2010: Rheum exam- not typical SLE sx- negative/normal C3/C4, SSA/SSB, centromere, FIRE REGULATOR/Sm, ESR,CRP. dsDNA borderline. [place] unlikely SLE. o 2012: Seen again by Rheum- Dr. Jung- photosensitive rash and raynauds. Borderline dsDNA. [place] likely SLE, though possible AIH could explain (+) MARY. HCQ discussed but wanted to avoid by GI. o [phone]: multiple hospitalizations for ascites; returned to Rheum [...] Sign Reading Time Taken Comments Blood Pressure 100/61 12/31/2022 6:30 PM EDT Pulse 71 12/31/2022 6:30 PM EDT Temperature 36.7 C (98.1 F) 12/31/2022 6:30 PM ED T Respiratory Rate 17 12/31/2022 6:30 PM EDT Oxygen Saturation 93% 12/31/2022 6:30 PM EDT Inhaled Oxygen Concentration - - Weight 46.3 kg (102 lb) 12/31/2022 3:41 PM EDT Height 167.6 cm (5' 6") 12/31/2022 3:41 PM EDT Body Mass Index 16.46 12/31/2022 3:41 PM EDT documented in this encounter Functional [...] No 12/21/2022 documented as of this encounter ED Notes * Rashid Stringer MD - 12/31/2022 3:15 PM EDT HISTORY OF PRESENT ILLNESS Jazmín Blevins is a 57 year old female who presents to the ED for evaluation of Rectal Bleeding. The patient was seen at 12/31/22 1450. Patient presents accompanied by for evaluation of rectal bleeding. She was discharged from the hospital yesterday during which she had a polypectomy and ablation of AVMs. She is known to have a history of cirrhosis, portal hypertension, varices. She reports today she had 3 large bowel movements which were predominantly blood and clots. She is been feeling lightheaded today. She reports cramps in her hands and her feet. She denies abdominal pain, fevers, chest pain, shortness of breath. She reports nausea and emesis x2 this morning without blood.She denies dysuria. Full code per patient. During her last admission she required emergent transfusion, vasopressors, transferred to the ICU. She states her preference is to remain at [facility] if medically appropriate. The patient's allergies, past history, and medications were reviewed. PHYSICAL EXAM Initial Vitals (see all): BP 86/63 | Pulse 86 | Resp 12 | Temp 97.4 | O2 91 %, Nasal Cannula | Weight 46.27 kg | Height 167.6cm | BMI 16.46 kg/m2 Initial Pain Assessment (see all): 2 (mild pain)/10, Cramps, location: bilateral lower ABD ([facility] Adult Scale 0-10) Physical Exam Constitutional: Appearance: She is normal weight. Comments: Chronically ill-appearing HENT: Head: Normocephalic and atraumatic. Right Ear: External ear normal. Left Ear: External ear normal. Nose: Nose normal. Mouth/Throat: Mouth: Mucous membranes are moist. Pharynx: Oropharynx is clear. Eyes: Extraocular Movements: Extraocular movements intact. Conjunctiva/sclera: Conjunctivae normal. Pupils: Pupils are equal, round, and reactive to light. Cardiovascular: Rate and Rhythm: Normal rate and regular rhythm. Pulses: Normal pulses. Heart sounds: Normal heart sounds. Pulmonary: Effort: Pulmonary effort is normal. Breath sounds: Normal breath sounds. Abdominal: General: Abdomen is flat. Bowel sounds are normal. Palpations: Abdomen is soft. Tenderness: There is abdominal tenderness (Right lower quadrant, left lower quadrant, suprapubic tenderness). There is no right CVA tenderness or left CVA tenderness. Genitourinary: Comments: Rectal exam performed with nurse operations processor in the room. One external hemorrhoid without evidence of thrombosis, blood in the vault Musculoskeletal: General: Normal range of motion. Cervical back: Normal range of motion and neck supple. Right lower leg: No edema. Left lower leg: No edema. Skin: General: Skin is warm and dry. Capillary Refill: Capillary refill takes 2 to 3 seconds. Neurological: General: No focal deficit present. Mental Status: She is alert and oriented to person, place, and time. Psychiatric: Mood and Affect: Mood normal. Behavior: Behavior normal. PROCEDURES AND TREATMENTS ED Orders | ED Results MEDICAL DECISION MAKING Nursing notes and vital signs were reviewed. ED Course as of 12/31/22 1855 Sat Dec 31, 2022 1500 BP: 86/63 Persistently hypotensive. 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 esophageal varices, portal hypertension and ascites, Graves disease status post thyroidectomy c/b postop hypothyroidism, chronic anemia, SLE, Immunodeficiency, emphysema, COPD group C, GERD and tobacco use [DINO] 1519 Consent obtained for blood transfusion [IC] 1536 CBC with WBC Differential(!) No leukocytosis, anemia with hemoglobin of 8.8 which is a 2 g drop from yesterday, no thrombocytopenia [IC] 1536 Lactate, Whole Blood with Reflex if Abnormal(!) Lactic acidosis with lactate of 3.3 [IC] 1543 INR: 1.1 [IC] 1545 Magnesium Within normal limits [IC] 1545 Comprehensive Metabolic Panel(!) Appropriate renal function, electrolytes unremarkable, hypoalbuminemia with albumin of 2.9, mild elevation of AST to 38, calcium mildly reduced at 8.3, given patient is actively receiving blood will replete calcium with calcium gluconate [IC] 1649 Call out to the transfer center [IC] 1650 CTA Abd/Pelvis with IV contrast only 1. Suspected resolving atelectasis or pneumonia at [...] in the setting of pelvic congestion syndrome. [IC] 1652 Awaiting call back from [facility] [IC] 1744 Accepted to [facility] hospitalist service under Dr Charlene Cohen [IC] 1182 EMTALA signed with patient at bedside [IC] ED Course User Index [IC] Rashid Stringer MD [DINO] Roque Stringer Jr., PA-C Differential Diagnoses Based on my history, physical exam, and evaluation, the differential includes, but is not limited, to the following diagnoses: GI bleed, acute blood loss anemia, electrolyte derangements, coagulopathy, diverticular bleed,. 57-year-old female with history of pulmonary hypertension, cirrhosis secondary to autoimmune hepatitis, esophageal varices, portal hypertension, Graves disease, chronic anemia, lupus, COPD, who presents for evaluation of lightheadedness and large volume rectal bleeding x3 today. Patient is persisten tly hypotensive and with her complaints of bleeding and her past medical history she was initiated on transfusion of 2 units emergency release packed red blood cells and provided with 500 mL normal saline bolus. Consent obtained for blood transfusion. Her hemoglobin has dropped 2 g from yesterday and she still has evidence of active bleeding, concerning for laboratory studies not having equilibrated at this time. CTAs demonstrate esophageal/gastric/rectal varices without focal areas of active extravasation. Patient's hemodynamics improved with blood resuscitation. Provided with Protonix bolusand drip. Laboratory studies significant as documented above. Patient's case was discussed with syst em triage officer, Dr. Everett who has accepted the patient to the hospitalist Service at [facility] as gastroenterology service are not currently available at [facility]. Patient remained otherwise stable under my care and was transferred to [facility] without further issue Amount and/or Complexity of Data Reviewed Labs: ordered. Decision-making details documented in ED Course. Radiology: ordered. Decision-making details documented in ED Course. Risk Prescription drug management. Clinical Impressions Gastrointestinal hemorrhage, unspecified gastrointestinal hemorrhage type Acute blood loss anemia Disposition Transferred. The patient's condition at disposition was: stable. Comments ED Disposition Transferred Comment -- Rashid Stringer ATTENDING ATTESTATION Critical Care Time: I personally provided 45 minutes of critical care for this patient. Critical care time was exclusive of separately billable procedures, treating other patients, and teaching. The patient had a high probability of sudden, clinically significant, life-threatening deterioration. Critical care was necessary to treat the following conditions: hypovolemic shock. Critical care was time spent personally by me on the following activities: development of treatment plan, evaluation of patient's response to treatment and re-evaluation of patient's condition. Rashid Stringer MD * Christa Leavitt RN - 12/31/2022 2:59 PM EDT Pt reports recent admission to [facility] for 10 days and was discharged yesterday. Pt c/o bilateral lower ABD cramping, nausea, vomiting, and bloody stools. documented in this encounter Miscellaneous Notes * Communication - Gareth Edmonds RN - 12/31/2022 6:40 PM EDT Hand-Off - Nurse Communication Note Name: Jazmín Blevins Location: Date: 12/31/2022 Time: 6:40 PM Nurse giving report: Gareth Edmonds RN Nurse receiving report: JANAY BALLARD Reason for SBAR handoff: Transfer Immediate Concerns: . SITUATION: Admission date: 12/31/2022 Chief Complaint: Rectal Bleeding Admitting diagnosis: Patient Service: Emergency Medicine [[id number]] Level of Care: Attending Provider: Rashid Stringer MD Coming From:home BACKGROUND: Primary Care Physician: Reggie Eddy DO Past Medical History: Diagnosis Date Arthritis Asthma Autoimmune hepatitis (HCC) Cirrhosis (HCC) Esophageal varices in cirrhosis (HCC) Esophageal varices without mention of bleeding in diseases classified elsewhere 12/19/2012 upper endoscopy Hemorrhage of gastrointestinal tract, unspecified 12/20/2012 colonoscopy Hiatal hernia Laryngospasm Portal hypertensive gastropathy (HCC) Postsurgical hypothyroidism Schatzki's ring Sialoadenitis Systemic lupus erythematosus (HCC) diagnosis in question Toxic diffuse goiter Patient Compliant: Yes Code Status: No code status on file Allergies: Dilaudid [hydromorphone hcl] and Environmental Problem list: Active Problems: * No active hospital problems. * Resolved Problems: * No resolved hospital problems. * Activity: ambulatory Fall Risk or Safety Concerns: None Isolation: None Isolation flowsheet: ASSESSMENT: Vital Signs: BP: 100/61 (12/31/221829) Temp: 36.7 C (98.1 F) (12/31/221829) Pulse: 71 (12/31/221829) Resp: 17 (12/31/221829) SpO2: 93 % (12/31/221829) Weight: 46.3 kg (102 lb) (12/31/221540) Height: 167.6 cm (5' 6") (12/31/221540) Pain Assessment Flowsheet Row Most Recent Value Pain Assessment Scale [facility] Scale 0-10 Pain Score 2 (mild pain) Fall Scale: Fall Score: 15 (12/31/221455) Fall Interventions: Bed at low level;Floor free of clutter;Walk path free of obstacles (12/31/221455) Neurological: [place] Coma Scale Eyes Open: Spontaneous (12/31/221540) Best Verbal Response: Verbally appropriate for age (12/31/221540) Best Motor Response: Obeys commands appropriate for age (12/31/221540) Coma Score: 15 (12/31/221540) Additional Neurological Information: . Respiratory: Respiratory WNL: WNL- within normal limits (12/31/221514) Depth/Rhythm: Regular (12/31/221514) Dyspnea Occurance: None (12/31/221514) Effort: Unlabored (12/31/221514) O2 flow rate: 2 L/MIN (12/31/221829) Additional Respiratory Information: . Cardiac: Rhythm: Regular;NSR (12/31/221514) Extremities: +Sensation;Right;Left;Upper;Lower (12/31/221514) Edema: No (12/31/221514) Additional Cardiac Information: . GI/: Abdomen: Non-distended;Non-tender;Soft (12/31/221514) Additional GI/ Information: . Integumentary: Skin Description: Warm;Dry (12/31/221514) Skin Color: Flesh Tone (12/31/221514) Additional Integumentary Information: . Restraints: No orders of the defined types were placed in this encounter. Medications: SEE MAR Lines: Peripheral Line Right Antecubital 20 Gauge (Active) Status Capped/Locked;Flushes easily;Positive blood return 12/31/221512 Phlebitis Scale 0 12/31/221512 Infiltration Scale 0 12/31/221512 Site Description (Other) Without redness, swelling or drainage 12/31/22 1513 Number of days: 0 Peripheral Line Left Antecubital 18 Gauge (Active) Status Capped/Locked;Flushes easily;Positive blood return 12/31/22 151 Phlebitis Scale 0 12/31/22 1514 Infiltration Scale 0 12/31/22 1514 Site Description (Other) Without redness, swelling or drainage 12/31/22 151 Number of days: 0 Treatment: . Labs: Labs This Encounter COMPREHENSIVE METABOLIC PANEL - Abnormal; Notable for the following components: Result Value Ref Range Glucose 134 70 - 120 mg/dL Albumin 2.9 3.8 - 5.0 g/dL AST 38 10 - 35 U/L Calcium 8.3 8.4 - 10.2 mg/dL All other components within normal limits LACTATE, WHOLE BLOOD WITH REFLEX IF ABNORMAL - Abnormal; Notable for the following components: Lactate, Whole Blood 3.3 0.4 - 2.0 mmol/L All other components within normal limits CBC - Abnormal; Notable for the following components: HGB 8.8 12.0 - 15.3 g/dL HCT 30.1 36.0 - 45.2 % All other components within normal limits DIFFERENTIAL, AUTOMATED - Abnormal; Notable for the following components: Neutrophils % 79.2 40.0 - 75.0 % Lymphocytes % 9.2 18.0 - 42.0 % Absolute Neutrophils 7.89 1.80 - 7.70 K/uL Absolute Lymphocytes 0.92 1.00 - 4.80 K/ul All other components within normal limits PT INR - Normal Narrative: Warfarin Therapy INR: 2.0-3.0 conventional anticoagulation INR: 2.5-3.5 high intensity anticoagulation MAGNESIUM - Normal CBC WITH WBC DIFFERENTIAL Narrative: The following orders were created for panel order CBC WITH WBC DIFFERENTIAL. Procedure Abnormality Status --------- ------ CBC[[id number]] Abnormal Final result DIFFERENTIAL, AUTOMATED[[id number]] Abnormal Final result Please view results for these tests on the individual orders. TYPE AND SCREEN LACTATE,WHOLE BLOOD PREPARE PACKED RED BLOOD CELLS TRANSFUSE PACKED RED BLOOD CELLS Diet: No orders of the defined types were placed in this encounter. Additional Diet Information: . Intake and Output: No intake or output data in the 24 hours ending 12/31/22 1840 Patient Belongings and Home Medications Patient Belongings at Bedside Belongings at Bedside: Clothing (12/31/221455) Clothing: Pants;Shirt;Footwear (12/31/221455) Patient Belongings Sent Home (Does not apply to Ambulatory areas) Belongings Sent Home: None (12/31/221455) Patient Belongings Sent to Safe/Locker Belongings Sent to Safe: None (12/31/221455) Patient Medications Medications Brought by Patient?: No (12/31/221455) RECOMMENDATIONS: Consults not completed: TBD Anticipated tests/studies/procedures: TBD Medication Reconcilliation completed for this Transfer? Yes * ED Hot Repairman Note - MARINE Lu - 12/31/2022 6:04 PM EDT Transfer center called for placement. [place] [address] - Room 730B. Report phone number [phone]. documented in this encounter Plan of Treatment Upcoming Encounters Date Type Specialty Care Team Description 01/04/2023 Office Visit Family Medicine Reggie Eddy, [address] [address] 01/04/2023 Telemedicine Endocrinology Gilbert Hawkins MD [address] [place] [address] 01/09/2023 Office Visit Ophthalmology Lakesha French DO [address] [place] [address] 03/16/2023 Office Visit Pulmonary Twin Hayden MD [address] [place] [address] Scheduled Orders Name Type Priority Associated Diagnoses Orde r Schedule LACTATE,WHOLE BLOOD Lab STAT Once for 1 Occurrences starting 12/31/2022 until 12/31/2022 Scheduled Procedures Name Priority Associated Diagnoses Date/Ti [...] Comments DISCUSS TOBACCO CESSATION (REFER TO SMARTSET #5203) 1965 COVID-19 Vaccine (#1) 1970 Alpha-1 Antitrypsin [...] this encounter Medical Devices Implanted Type Area Operations Vice President Device Identifier Shelf Expiration Date Model / Serial / Lot Lens 22.0 Sa60at - [id number] Implanted:Qty: 1 on 10/15/2012 at OR [facility] Left: Eye [employer] 10/07/2016 SA60AT / [id number] / Lens 22.0 Sa60at - [id number] Implanted:Qty: 1 on 11/29/2012 at [place] [facility] Right: Eye [employer] 03/31/2017 SA60AT / [id number] / Duraclip 11mm Repositionable - [id number] Implanted:Qty: 1 on 05/11/2022 by Jeffrey Weber MD at ENDOS[facility] startuply [id number] 01/29/2024 [id number] / / [id number] documented as of this encounter Procedures Procedure Name Priority Date/Time Associated Diagnosis Comments CTA ABD/PELVIS STAT 12/31/2022 3:30 PM EDT PREPARE PACKED RED BLOOD CELLS STAT 12/31/2022 3:11 PM EDT LACTATE, WHOLE BLOOD WITH REFLEX IF ABNORMAL STAT 12/31/2022 3:10 PM EDT DIFFERENTIAL, AUTOMATED STAT 12/31/2022 3:10 PM EDT COMPREHENSIVE METABOLIC PANEL STAT 12/31/2022 3:10 PM EDT TYPE AND SCREEN STAT 12/31/2022 3:10 PM EDT CBC WITH WBC DIFFERENTIAL STAT 12/31/2022 3:10 PM EDT PT INR STAT 12/31/2022 3:10 PM EDT CBC STAT 12/31/2022 3:10 PM EDT MAGNESIUM STAT 12/31/2022 3:10 PM EDT documented in this encounter Results * TRANSFUSE PACKED RED BLOOD CELLS (12/31/2022 6:30 PM EDT) Rashid Stringer MD BLD BANK TRANFUSE OR DERABLES * CTA ABD/PELVIS (12/31/2022 3:30 PM EDT) Anatomical Region Laterality Modality Abdomen, Pelvis, Body Computed T omography 12/31/2022 3:18 PM EDT Impressions 12/31/2022 4:09 PM EDT IMPRESSION: 1. Suspected resolving atelectasis or pneumonia [...] BEEN ELECTRONICALLY SIGNED BY LAKESHA MADDEN MD Narrative 12/31/2022 4:09 PM EDT PROCEDURE INFORMATION: Exam: CTA Abdomen and Pelvis [...] Possible hemorrhoids identified in the lower rectum. Procedure Note Lakesha Madden MD - 12/31/2022 PROCEDURE INFORMATION: Exam: CTA Abdomen and Pelvis With Contrast Exam date and time: 12/31/2022 3:18 PM Age: 57 years old Clinical indication: Other: Rectal bleeding; Prior surgery; Surgery date:<1 month; Surgery type: Recent polypectomy; Additional info: Concern for gibleed, recent polypectomy TECHNIQUE: Imaging protocol: Computed tomographic angiography of the abdomen andpelvis with contrast. Exam focused on the arteries. 3D rendering (Not supervised by radiologist): MIP and/or 3D reconstructed images were created by the technologist. Radiation optimization: All CT scans at this facility use at least one ofthese dose optimization techniques: automated exposure control; mA and/or kV adjustment per patient size (includes targeted exams where dose is matchedto clinical indication); or iterative reconstruction. Contrast material: OPTIRAY 350; Contrast volume: 100 ml; Contrast route: INTRAVENOUS (IV); REPORTING DATA: Count of CT and Cardiac NM exams in prior 12 months: This patient hasreceived [address] and 0 known cardiac nuclear medicine studies in the 12 monthsprior to the current study. COMPARISON: CTA ABD/PELVIS 12/20/2022 7:21 PM FINDINGS: Lungs: Nodular density at the left lung base with cluster of nodulesmeasuring approximately 4-6 mm in size. Finding best identified on image 28 [id number]. 1.3 x 1.1 cm nodular density at the left lung base favored to represent resolving atelectasis. Aorta: Calcific atherosclerotic disease is present in the abdominal aorta. Celiac trunk and mesenteric arteries: No occlusion or significantstenosis. Renal arteries: No occlusion or significant stenosis. Right iliac arteries: No occlusion or significant stenosis. Left iliac arteries: No occlusion or significant stenosis. Veins: There is a recanalized umbilical vein with varices identified inthe anterior abdomen. The portal vein is patent. Prominent left gonadal veinwith venous varicosities in the left lower pelvis. Esophageal and gastricvarices are present. Abnormal enhancement within the wall of the rectum consistentwith varices. Liver: The liver is nodular in [...] disc and facet changes of the spine withoutacute osseous abnormality. Soft tissues: Possible hemorrhoids identified in the lower rectum. IMPRESSION IMPRESSION: 1. Suspected resolving atelectasis or pneumonia at the left lung base. 2. The liver is nodular in contour, suggesting cirrhosis. 3. Esophageal, gastric and rectal varices are present and representpotential sites of hemorrhage. No findings of active GI hemorrhage. Findings arelikely related to cirrhosis and portal hypertension. 4. Prominent left gonadal vein with venous varicosities in the leftlower pelvis. Findings may be seen in the setting of pelvic congestion syndrome. THIS DOCUMENT HAS BEEN ELECTRONICALLY SIGNED BY LAKESHA MADDEN MD Rashid Stringer MD RAD CT * PREPARE PACKED RED BLOOD CELLS (12/31/2022 3:11 PM EDT) Unit Product Code [id number] [facility] Unit Number [id number] [facility] Unit ABO O [facility] Unit Rh POS [facility] Unit Status EI [facility] Unit Blood Type OPOS [facility] Unit Expiration [id number] [facility] Unit Barcode 5100 [facility] 12/31/2022 3:11 PM EDT Rashid Stringer MD BLD BANK PRODUCT ORD ERABLES Performing Organization Address [facility]/ZIP Co de Phone Number [facility] [address] [place] [phone] * MAGNESIUM (12/31/2022 3:10 PM EDT) [facility] Magnesium 1.8 1.5 - 2.6 mg/dL 12/31/2022 3:44 PM EDT [facility] Blood Venous blood specimen / Unknown Venipuncture / Unknown 12/31/2022 3:10 PM EDT 12/31/2022 3:21 PM EDT Rashid Stringer MD LAB BLOOD ORDERABLES Performing Organization Address City/[facility]/ZIP Co de Phone Number [address] [phone] * TYPE AND SCREEN (12/31/2022 3:10 PM EDT) ABO AB 12/31/2022 6:36 PM EDT LABORATORY [facility] Rh Positive 12/31/2022 6:36 PM EDT LAB[facility]ATORY [facility] Red Blood Cell Antibody Screen Negative 12/31/2022 6:36 PM EDT LABORATORY [facility] Specimen Expiration Date 01/03/2023 23:59 12/31/2022 6:36 PM EDT LAB[facility]ATORY [facility] Blood Venous blood specimen / Unknown Venipuncture / Unknown 12/31/2022 3:10 PM EDT 12/31/2022 3:21 PM EDT Rashid Stringer MD LAB BLOOD BANK TEST ORDERABLES [facility] [address] [place] [address] * PT INR (12/31/2022 3:10 PM EDT) Prothrombin Time 14.2 11.6 - 15.2 seconds 12/31/2022 3:43 PM EDT [facility] INR 1.1 0.8 - 1.2 12/31/2022 3:43 PM EDT [facility] Blood Venous blood specimen / Unknown Venipuncture / Unknown 12/31/2022 3:10 PM EDT 12/31/2022 3:20 PM EDT Narrative [facility] - 12/31/2022 3:43 PM EDT Warfarin Therapy INR: 2.0-3.0 conventional anticoagulation INR: 2.5-3.5 high intensity anticoagulation Rashid Stringer MD LAB BLOOD ORDERABLES [facility] [address] [place] [phone] * (ABNORMAL) DIFFERENTIAL, AUTOMATED (12/31/2022 3:10 PM EDT) WBC 9.97 4.00 - 10.80 K/uL 12/31/2022 3:24 PM EDT [facility] Neutrophils % 79.2(H) 40.0 - 75.0 % 12/31/2022 3:24 PM EDT [facility] Lymphocytes % 9.2(L) 18.0 - 42.0 % 12/31/2022 3:24 PM EDT [facility] Monocytes % 7.8 1.0 - 11.0 % 12/31/2022 3:24 PM EDT [facility] Eosinophils % 3.1 0.0 - 6.0 % 12/31/2022 3:24 PM EDT [facility] Basophils % 0.7 0.0 - 2.0 % 12/31/2022 3:24 PM EDT [facility] Absolute Neutrophils 7.89(H) 1.80 - 7.70 K/uL 12/31/2022 3:24 PM EDT [facility] Absolute Lymphocytes 0.92(L) 1.00 - 4.80 K/ul 12/31/2022 3:24 PM EDT [facility] Absolute Monocytes 0.78 0.00 - 1.10 K/uL 12/31/2022 3:24 PM EDT [facility] Absolute Eosinophils 0.31 0.00 - 0.70 K/uL 12/31/2022 3:24 PM EDT [facility] Absolute Basophils 0.07 0.00 - 0.20 K/uL 12/31/2022 3:24 PM EDT [facility] Blood Venous blood specimen / Unknown Venipuncture / Unknown 12/31/2022 3:10 PM EDT 12/31/2022 3:20 PM EDT Rashid Stringer MD LAB BLOOD ORDERABLES Performing Organization Address City/State/[facility] Co de Phone Number LABORATORY [address] [phone] * (ABNORMAL) CBC (12/31/2022 3:10 PM EDT) [facility] WBC 9.97 4.00 - 10.80 K/uL 12/31/2022 3:24 PM EDT [facility] RBC 3.58 3.85 - 5.15 M/uL 12/31/2022 3:24 PM EDT [facility] HGB 8.8(L) 12.0 - 15.3 g/dL 12/31/2022 3:24 PM EDT [facility] HCT 30.1(L) 36.0 - 45.2 % 12/31/2022 3:24 PM EDT [facility] MCV 84.1 81.5 - 97.5 fL 12/31/2022 3:24 PM EDT [facility] MCH 24.6 27.0 - 34.0 pg 12/31/2022 3:24 PM EDT [facility] MCHC 29.2 32.0 - 36.0 g/dL 12/31/2022 3:24 PM EDT [facility] RDW 31.3 11.5 - 15.5 % 12/31/2022 3:24 PM EDT [facility] PLT 329 140 - 400 K/uL 12/31/2022 3:24 PM EDT [facility] MPV 10.8 6.6 - 11.1 fL 12/31/2022 3:24 PM EDT [facility] Blood Venous blood specimen / Unknown Venipuncture / Unknown 12/31/2022 3:10 PM EDT 12/31/2022 3:20 PM EDT Rashid Stringer MD LAB BLOOD ORDERABLES Performing Organization Address City/[facility]/ZIP Co de Phone Number LABORATORY [address] [phone] * (ABNORMAL) LACTATE, WHOLE BLOOD WITH REFLEX IF ABNORMAL (12/31/2022 3:10 PM EDT) [facility] Lactate, Whole Blood 3.3(H) 0.4 - 2.0 mmol/L 12/31/2022 3:26 PM EDT [facility] Blood Venous blood specimen / Unknown Venipuncture / Unknown 12/31/2022 3:10 PM EDT 12/31/2022 3:21 PM EDT Rashid Stringer MD LAB BLOOD ORDERABLES LABORATORY [address] [phone] * (ABNORMAL) COMPREHENSIVE METABOLIC PANEL (12/31/2022 3:10 PM EDT) [facility] BUN 12 6 - 20 mg/dL 12/31/2022 3:44 PM EDT [facility] Creatinine 1.0 0.5 - 1.0 mg/dL 12/31/2022 3:44 PM EDT [facility] Estimated Glomerular Filtration Rate 67 >=60 mL/min 12/31/2022 3:44 PM EDT [facility] Comment:eGFR is calculated b ased on the CKD-EPI 2020 equation Sodium 135 135 - 146 mmol/L 12/31/2022 3:44 PM EDT [facility] Potassium 4.4 3.5 - 5.1 mmol/L 12/31/2022 3:44 PM EDT [facility] Chloride 101 98 - 107 mmol/L 12/31/2022 3:44 PM EDT [facility] CO2 23 22 - 32 mmol/L 12/31/2022 3:44 PM EDT [facility] Anion Gap 11 7 - 15 mmol/L 12/31/2022 3:44 PM EDT [facility] Glucose 134(H) 70 - 120 mg/dL 12/31/2022 3:44 PM EDT [facility] Albumin 2.9(L) 3.8 - 5.0 g/dL 12/31/2022 3:44 PM EDT [facility] AST 38(H) 10 - 35 U/L 12/31/2022 3:44 PM EDT [facility] Comment:Result may be falsel y elevated due to hemolysis. Alkaline Phosphatase 92 35 - 130 U/L 12/31/2022 3:44 PM EDT [facility] Bilirubin, Total 0.5 <=1.2 mg/dL 12/31/2022 3:44 PM EDT [facility] Calcium 8.3(L) 8.4 - 10.2 mg/dL 12/31/2022 3:44 PM EDT [facility] Protein 6.5 6.0 - 8.3 g/dL 12/31/2022 3:44 PM EDT [facility] ALT 15 10 - 35 U/L 12/31/2022 3:44 PM EDT [facility] Blood Venous blood specimen / Unknown Venipuncture / Unknown 12/31/2022 3:10 PM EDT 12/31/2022 3:21 PM EDT Rashid Stringer MD LAB BLOOD ORDERABLES LABORATORY [address] [phone] documented in this encounter Visit Diagnoses Diagnosis Gastrointestinal hemorrhage, unspecified gastrointestinal hemorrhage type- Primary Acute blood loss anemia Acute posthemorrhagic anemia documented in this encounter Administered Medications Inactive Administered Medications - up to 3 most recent administrations Medication Order MAR Action Action Date Dose Rate Site calcium GLUConate 10 % inj 1,000 mg 1,000 mg, IV Push, ONCE, On 12/31/22 at 1630, For 1 dose, Give over 5 minutes, rate cannot exceed 2 mL/min for IV push. Do not run through TPN line or with sodium bicarbonate! Given 12/31/2022 4:07 PM EDT 1,000 mg Ioversol (Optiray 350) 74 % inj 100 mL 100 mL, Intravenous, ONCE, On 12/31/22 at 1615, For 1 dose, Radiology Medication Routing (Non-IR) Given 12/31/2022 3:31 PM EDT 100 mL NSS 0.9% 500 mL bolus infusion Intravenous, at 500 mL/hr Administer over 60 Minutes, Wide open, This infusion may be completed in less than 1 hour, since it will be a wide open rate, ONCE, 1 dose, On 12/31/22 at 1530 New Bag 12/31/2022 3:20 PM EDT 500 mL 500 mL/hr Pantoprazole (Protonix) 80 mg in NSS 100 mL ivpb 80 mg, IV Piggyback, ONCE, 1 dose, On 12/31/22 at 1730, Administer over 15 Minutes New Bag 12/31/2022 5:30 PM EDT 80 mg 400 mL/hr Pantoprazole (Protonix) 80 mg in NSS 500 mL INFUSION Intravenous, at 50 mL/hr, CONTINUOUS, Starting on 12/31/22 at 1730, Until 12/31/22 at 1956 New Bag 12/31/2022 5:30 PM EDT 8 mg/hr 50 mL/hr documented in this encounter Active and Recently Administered Medications Times are shown in EDT. Scheduled Medication Order 12/29/2022 12/30/2022 12/31/2022 calcium GLUConate 10 % inj 1,000 mg (COMPLETED) 1,000 mg, IV Push, ONCE, On 12/31/22 at 1630, For 1 dose, Give over 5 minutes, rate cannot exceed 2 mL/min for IV push. Do not run through TPN line or with sodium bicarbonate! 1607 (Given - Provid er: Gareth Edmonds RN) Ioversol (Optiray 350) 74 % inj 100 mL (COMPLETED) 100 mL, Intravenous, ONCE, On 12/31/22 at 1615, For 1 dose, Radiology Medication Routing (Non-IR) 1531 (Given - Provid er: Vinicius York, RT (R)) NSS 0.9% 500 mL bolus infusion (COMPLETED) Intravenous, at 500 mL/hr Administer over 60 Minutes, Wide open, This infusion may be completed in less than 1 hour, since it will be a wide open rate, ONCE, 1 dose, On 12/31/22 at 1530 1520 (New Bag - Prov ider: Gareth Edmonds RN)1828 (Stopped - Provider: Gareth Edmonds RN) Pantoprazole (Protonix) 80 mg in NSS 100 mL ivpb (COMPLETED) 80 mg, IV Piggyback, ONCE, 1 dose, On 12/31/22 at 1730, Administer over 15 Minutes 1730 (Giacomo Bag - Prov ider: Gareth Edmonds RN - Comment: Medication mixed by this RN and verified by NELLIE Goodwin. Barcode unable to be scanned d/t this reason.)1739 (Stopped - Provider: Gareth Edmonds RN) Continuous Medication Order 12/29/2022 12/30/2022 12/31/2022 Pantoprazole (Protonix) 80 mg in NSS 500 mL INFUSION Intravenous, at 50 mL/hr, CONTINUOUS, Starting on 12/31/22 at 1730, Until 12/31/22 at 195 1730 (New Bag - Prov ider: Gareth Edmonds RN)1955 (Due: Stopped) documented in this encounter Advance Directives Latest [...] the patient have Health Care Power of Export Packer? No Care Teams Licensed Marine Engineer Relationship Specialty Start Date End Date Reggie Eddy, [place] [address] PCP - General Internal Medicine 03/08/22 documented as of this encounter
--- OUTSIDE RECORDS SUMMARY | 2023-03-19 22:29 | External Medical Summary ---
Author Name Unknown Address Unknown Organization [id number]:[facility] [place] [address] [place] [address] Laboratory Report Ordering Provider Test Date Status IESHA MONTES 12/31/2022 20:25:00 Kati l Observation Date Value Abnormality Reference (Units ) Status Lactic Acid 12/31/2022 20:25:00 2.2 Above high normal 0.4-2.0 (mmol/L) Final Performing Location [facility] [place] [address] [facility] [place] [address]
--- OUTSIDE RECORDS SUMMARY | 2023-03-19 22:29 | External Medical Summary ---
Author Name Unknown Address Unknown Organization [id number]:[facility] - [address] [place] [id number] Laboratory Report Ordering Provider Test Date Status GAURIYOSELINLEENA 12/31/2022 15:10:43 Final Observation Date Value Abnormality Reference (Units ) Status SYNC LEUKOCYTES IN BLOOD BY AUTOMATED COUNT 12/31/2022 15:10:43 9.97 4.00-10.80 (K/uL) Final Segs 12/31/2022 15:10:43 79.2 Above high normal 40.0-75.0 (%) Final Lymphs % 12/31/2022 15:10:43 9.2 Below low normal 18.0-42.0 (%) Final Monos 12/31/2022 15:10:43 7.8 1.0-11.0 (%) Final Eosinophils 12/31/2022 15:10:43 3.1 0.0-6.0 (%) Final Basos 12/31/2022 15:10:43 0.7 0.0-2.0 (%) Final Absolute Segs 12/31/2022 15:10:43 7.89 Above high normal 1.80-7.70 (K/uL) Final Lymphs, absolute 12/31/2022 15:10:43 0.92 Below low normal 1.00-4.80 (K/ul) Final Monos, Abs 12/31/2022 15:10:43 0.78 0.00-1.10 (K/uL) Final Eos, Abs 12/31/2022 15:10:43 0.31 0.00-0.70 (K/uL) Final Basos, Abs 12/31/2022 15:10:43 0.07 0.00-0.20 (K/uL) Final Performing Location [facility] - [address] [facility] [id number]
--- OUTSIDE RECORDS SUMMARY | 2023-03-19 22:29 | External Medical Summary ---
Author Name Unknown Address Unknown Organization [id number]:[facility] [place] [facility] [address] [facility] [address] Laboratory Report Ordering Provider Test Date Status ADOLFO WALKER 01/02/2023 18:21:00 Final Observation Date Value Abnormality Reference (Units ) Status WBC, Total 01/02/2023 18:21:00 4.57 4.00-10.80 (K/uL) Final RBC 01/02/2023 18:21:00 3.56 3.85-5.15 (M/uL) Final Hemoglobin 01/02/2023 18:21:00 8.8 Below low normal 12.0-15.3 (g/dL) Final HCT 01/02/2023 18:21:00 32.4 Below low normal 36.0-45.2 (%) Final MCV 01/02/2023 18:21:00 91.0 81.5-97.5 (fL) Final MCH 01/02/2023 18:21:00 24.7 27.0-34.0 (pg) Final MCHC 01/02/2023 18:21:00 27.2 32.0-36.0 (g/dL) Final RDW 01/02/2023 18:21:00 29.4 11.5-15.5 (%) Final Platelets 01/02/2023 18:21:00 266 140-400 (K/uL) Final MPV 01/02/2023 18:21:00 10.7 6.6-11.1 (fL) Final Nucleated erythrocytes/100 leukocytes [Ratio] in Blood by Automated count 01/02/2023 18:21:00 0 <=0 (/100 WBCs) Final Performing Location [facility] [place] [address] [facility] [address]
--- OUTSIDE RECORDS SUMMARY | 2023-03-19 22:30 | External Medical Summary ---
Author Name Unknown Address Unknown Organization K01:[facility] [place] - [facility] [address] [facility] [address] Laboratory Report Ordering Provider Test Date Status NANO ALFARO 12/29/2022 17:53:00 Final Observation Date Value Abnormality Reference (Units ) Status WBC, Total 12/29/2022 17:53:00 7.99 4.00-10.80 (K/uL) Final RBC 12/29/2022 17:53:00 3.83 3.85-5.15 (M/uL) Final Hemoglobin 12/29/2022 17:53:00 9.2 Below low normal 12.0-15.3 (g/dL) Final HCT 12/29/2022 17:53:00 31.9 Below low normal 36.0-45.2 (%) Final MCV 12/29/2022 17:53:00 83.3 81.5-97.5 (fL) Final MCH 12/29/2022 17:53:00 24.0 27.0-34.0 (pg) Final MCHC 12/29/2022 17:53:00 28.8 32.0-36.0 (g/dL) Final RDW 12/29/2022 17:53:00 30.3 11.5-15.5 (%) Final Platelets 12/29/2022 17:53:00 248 140-400 (K/uL) Final MPV 12/29/2022 17:53:00 10.1 6.6-11.1 (fL) Final Nucleated erythrocytes/100 leukocytes [Ratio] in Blood by Automated count 12/29/2022 17:53:00 0 <=0 (/100 WBCs) Final Performing Location [facility] [place] - [address] [facility] [address]
--- OUTSIDE RECORDS SUMMARY | 2023-03-19 22:30 | External Medical Summary ---
Author Name Unknown Address Unknown Organization K01:[facility] [place] [address] [facility] [address] Laboratory Report Ordering Provider Test Date Status NANO ALFARO 12/29/2022 06:32:00 Final Observation Date Value Abnormality Reference (Units ) Status BUN 12/29/2022 06:32:00 6 6-20 (mg/dL) Final Creatinine 12/29/2022 06:32:00 0.8 0.5-1.0 (mg/dL) Final Glomerular filtration rate/1.73 sq M.predicted [Volume Rate/Area] in Serum, Plasma or Blood by Creatinine-based formula (CKD-EPI) 12/29/2022 06:32:00 82 >=60 (mL/min) Final eGFR is calculated based on the CKD-EPI 2020 equation SODIUM 12/29/2022 06:32:00 136 135-146 (m mol/L) Final Potassium 12/29/2022 06:32:00 4.4 3.5-5.1 (m mol/L) Final Cl 12/29/2022 06:32:00 103 98-107 (mm ol/L) Final CO2 12/29/2022 06:32:00 26 22-32 (mmo l/L) Final Anion gap 12/29/2022 06:32:00 7 7-15 (mmol /L) Final Glucose 12/29/2022 06:32:00 99 70-120 (mg /dL) Final Calcium 12/29/2022 06:32:00 8.0 Below low normal 8.4 -10.2 (mg/dL) Final Performing Location [facility] [place] [address] [facility] [address]
--- OUTSIDE RECORDS SUMMARY | 2023-03-19 22:30 | External Medical Summary ---
Author Name Unknown Address Unknown Organization K01:[facility] - [address] [facility] [address] Laboratory Report Ordering Provider Test Date Status NANO ALFARO 12/30/2022 09:31:00 Final Observation Date Value Abnormality Reference (Units ) Status Phosphate 12/30/2022 09:31:00 3.7 2.5-4.8 (m g/dL) Final Performing Location [facility] - [address] [facility] [address]
--- OUTSIDE RECORDS SUMMARY | 2023-03-19 22:30 | External Medical Summary ---
Author Name Unknown Address Unknown Organization K01:[facility] - [address] [facility] [address] Laboratory Report Ordering Provider Test Date Status NANO ALFARO 12/29/2022 06:32:00 Final Observation Date Value Abnormality Reference (Units ) Status Phosphate 12/29/2022 06:32:00 2.7 2.5-4.8 (m g/dL) Final Performing Location [facility] - [address] [facility] [address]
--- OUTSIDE RECORDS SUMMARY | 2023-03-19 22:30 | External Medical Summary ---
Author Name Unknown Address Unknown Organization K01:[facility] [place] [address] [facility] [address] Laboratory Report Ordering Provider Test Date Status NANO ALFARO 12/29/2022 06:32:00 Final Observation Date Value Abnormality Reference (Units ) Status Ferritin 12/29/2022 06:32:00 651 Above high normal 13 -150 (ng/mL) Final Postmenopausal women have hi gher ferritin levels than pre-menopausal women. The above reference interval is based on pre-menopausal women. Performing Location [facility] [place] [address] [facility] [address]
--- OUTSIDE RECORDS SUMMARY | 2023-03-19 22:30 | External Medical Summary ---
Author Name Unknown Address Unknown Organization K01:[facility] [place] - [address] [facility] [address] Laboratory Report Ordering Provider Test Date Status NANO ALFARO 12/28/2022 18:21:00 Final Observation Date Value Abnormality Reference (Units ) Status BUN 12/28/2022 18:21:00 5 Below low normal 6-20 (mg/dL) Final Creatinine 12/28/2022 18:21:00 0.7 0.5-1.0 (mg/dL) Final Glomerular filtration rate/1.73 sq M.predicted [Volume Rate/Area] in Serum, Plasma or Blood by Creatinine-based formula (CKD-EPI) 12/28/2022 18:21:00 >90 >=60 (mL/min) Final eGFR is calculated based on the CKD-EPI 2020 equation SODIUM 12/28/2022 18:21:00 135 135-146 (m mol/L) Final Potassium 12/28/2022 18:21:00 4.1 3.5-5.1 (m mol/L) Final Cl 12/28/2022 18:21:00 100 98-107 (mm ol/L) Final CO2 12/28/2022 18:21:00 24 22-32 (mmo l/L) Final Anion gap 12/28/2022 18:21:00 11 7-15 (mmol /L) Final Glucose 12/28/2022 18:21:00 135 Above high normal 70 -120 (mg/dL) Final Calcium 12/28/2022 18:21:00 8.4 8.4-10.2 ( mg/dL) Final Performing Location [facility] [place] - [address] [facility] [address]
--- OUTSIDE RECORDS SUMMARY | 2023-03-19 22:30 | External Medical Summary ---
Author Name Unknown Address Unknown Organization K01:[facility] [place] - [address] [place] [address] Laboratory Report Ordering Provider Test Date Status NANO ALFARO 12/28/2022 11:53:00 Final Observation Date Value Abnormality Reference (Units ) Status Troponin T 12/28/2022 11:53:00 7 <=14 (ng/ L) Final Performing Location [facility] - [address] [place] [address]
--- OUTSIDE RECORDS SUMMARY | 2023-03-19 22:30 | External Medical Summary ---
Author Name Unknown Address Unknown Organization K01:[facility]ORY [facility] [place] - [address] [facility] [address] Laboratory Report Ordering Provider Test Date Status ESEQUIEL HERNANDEZ 12/30/2022 09:31:00 Final Observation Date Value Abnormality Reference (Units ) Status WBC, Total 12/30/2022 09:31:00 8.11 4.00-10.80 (K/uL) Final RBC 12/30/2022 09:31:00 4.42 3.85-5.15 (M/uL) Final Hemoglobin 12/30/2022 09:31:00 10.7 Below low normal 12.0-15.3 (g/dL) Final HCT 12/30/2022 09:31:00 36.7 36.0-45.2 (%) Final MCV 12/30/2022 09:31:00 83.0 81.5-97.5 (fL) Final MCH 12/30/2022 09:31:00 24.2 27.0-34.0 (pg) Final MCHC 12/30/2022 09:31:00 29.2 32.0-36.0 (g/dL) Final RDW 12/30/2022 09:31:00 30.7 11.5-15.5 (%) Final Platelets 12/30/2022 09:31:00 285 140-400 (K/uL) Final MPV 12/30/2022 09:31:00 10.4 6.6-11.1 (fL) Final Nucleated erythrocytes/100 leukocytes [Ratio] in Blood by Automated count 12/30/2022 09:31:00 0 <=0 (/100 WBCs) Final Performing Location [facility]ORY [facility] [place] - [address] [facility] [address]
--- OUTSIDE RECORDS SUMMARY | 2023-03-19 22:30 | External Medical Summary ---
Author Name Unknown Address Unknown Organization K01:[facility] [place] [address] [place] [address] Laboratory Report Ordering Provider Test Date Status NANO ALFARO 12/29/2022 12:36:00 Final Observation Date Value Abnormality Reference (Units ) Status ABO 12/29/2022 12:36:00 AB Final RH 12/29/2022 12:36:00 Positive Final RED BLOOD CELL ANTIBODY SCREEN 12/29/2022 12:36:00 Negative Final SPECIMEN EXPIRATION DATE 12/29/2022 12:36:00 01/01/2023 23:59 Final Performing Location [facility] [place] [address] [place] [address]
--- OUTSIDE RECORDS SUMMARY | 2023-03-19 22:30 | External Medical Summary ---
Author Name Unknown Address Unknown Organization K01:[facility] [place] [address] [facility] [address] Laboratory Report Ordering Provider Test Date Status NANO ALFARO 12/29/2022 06:32:00 Final Observation Date Value Abnormality Reference (Units ) Status Magnesium 12/29/2022 06:32:00 1.7 1.5-2.6 (m g/dL) Final Performing Location [facility] - [address] [facility] [address]
--- OUTSIDE RECORDS SUMMARY | 2023-03-19 22:30 | External Medical Summary | Summary of Care ---
Author Name Unknown Organization [facility] Address [address] [place] [address] Phone [phone] Care Team Providers Care Silver Service Waiter Name Role Phone Reggie Eddy Primary Care Provid er Reason for Visit * Reason Onset Date Comments Mycode Lab Reorder 12/28/2022 Encounter Details Date Type Department Care Team Description 12/28/2022 Orders Only Outcomes Research Department [address] [place] [address] Ellie Mcclure CHRA MyCode Research Other*[id number]* Allergies Active Allergy Reactions Severity Noted Date Comments Hydromorphone Hcl Itching Medium 11/09/2015 Environmental Low 05/04/2010 Pollen -asthmatic attacks documented as of this encounter (statuses as of 12/28/2022) Medications Medication Sig Dispensed Refills Start Date [...] 1 Each 0 06/13/2020 Suspended Additional Information oxygen IN GAS 3 liters/min at rest and at night and 5 liters/min on activity 1 Each 0 06/14/2020 Suspended Additional Information Patient taking differently: 3 liters/min at rest and at night and 5 liters/min on activity as needed, Informant: Patient, Reported on 04/18/2022 Calcium Citrate 200 MG Oral TabletIndications:H ypocalcemia [...] 30 Tablet 5 09/08/2022 Suspended Additional Information Tadalafil (PAH) 20 MG Oral Tablet Take 2 Tablets by mouth in the morning. 60 Tablet 9 09/08/2022 Suspended Additional Information Patient taking differently: 40 mgOral Daily(AM), Reported on 12/21/2022 Torsemide 20 MG Oral Tablet (Demadex)Indication s:Cirrhosis [...] Suspended Additional Information Patient taking differently:3 mL [id number] PRN, Dyspnea, Reported on 12/21/2022 Mycophenolate Mofetil [...] 240 Tablet 0 12/20/2022 Suspended Additional Information documented as of this encounter (statuses as of 12/28/2022) Active Problems Problem Noted Date Iron deficiency anemia due to chronic bl [...] typical SLE sx- negative/normal C3/C4, SSA/SSB, centromere, [employer]/Sm, ESR,CRP. dsDNA borderline. Posey unlikely SLE. o 2012: Seen again by Rheum- Dr. Jung- photosensitive rash and raynauds. Borderline dsDNA. Posey likely SLE, though possible AIH could explain (+) MARY. HCQ discussed but wanted to avoid by GI. 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 documented in this encounter Plan of Treatment Upcoming Encounters Date Type Specialty Care Team Description 01/04/2023 Telemedicine Endocrinology Gilbert Hawkins MD [address] [place] [address] 01/09/2023 Office Visit Ophthalmology Fran French DO [address] [place] [address] 03/16/2023 Office Visit Pulmonary Twin Hayden MD [address] [place] [address] Scheduled Orders Name Type Priority Associated Diagnoses Orde r Schedule MYCODE SUBSEQUENT ADULT Lab Routine MyCode Research Other*[id number] Every 6 Months for 2 Occurrences starting 12/28/2022 until 01/17/2024 Scheduled Procedures Name Priority Associated Diagnoses Date/Ti [...] this encounter Medical Devices Implanted Type Area Rent Control Office Manager Device Identifier Shelf Expiration Date Model / Serial / Lot Lens 22.0 Sa60at - [id number] Implanted:Qty: 1 on 10/15/2012 at OR [facility] Left: Eye [employer] 10/07/2016 SA60AT / [id number] / Lens 22.0 Sa60at - [id number] Implanted:Qty: 1 on 11/29/2012 at OR [facility] [place] Right: Eye [employer] 03/31/2017 SA60AT / [id number] / Duraclip 11mm Repositionable - [id number] Implanted:Qty: 1 on 05/11/2022 by Jeffrey Weber MD at ENDOSCOPY [facility] [place] [employer] [id number] 01/29/2024 [id number] / [id number] documented as of this encounter Visit Diagnoses Diagnosis MyCode Research Other*[id number]- Primary documented in this encounter Advance Directives Latest Code Status on File Code Status Date Activated Date Inactivated Comments Full Code 12/21/2022 1:08 AM This order reflects the patients wishes and were consensually agreed upon. Question Answer Comments Discussion of Advance Directives occurred with: Patient Code Status History Code Status Date Activated Date Inactivated Comments Full Code 03/19/2021 8:43 AM 03/19/2021 3:52 [...] the patient have Health Care Power of Material Specialist? No Full Code 12/06/2019 4:21 AM 12/11/2019 5:39 PM This o rder reflects the patients wishes and were consensually agreed upon. Question Answer Comments Discussion of Advance Directives occurred with: Patient Care Teams Silver Service Waiter Relationship Specialty Start Date End Date Reggie Eddy, [place] [address] PCP - General Internal Medicine 03/08/22 documented as of this encounter
--- OUTSIDE RECORDS SUMMARY | 2023-03-19 22:30 | External Medical Summary ---
Author Name Unknown Address Unknown Organization K01[place] [place] [address] [facility] [address] Laboratory Report Ordering Provider Test Date Status NANO ALFARO 12/30/2022 09:31:00 Final Observation Date Value Abnormality Reference (Units ) Status Magnesium 12/30/2022 09:31:00 1.8 1.5-2.6 (m g/dL) Final Performing Location [facility] - [address] [facility] [address]
--- OUTSIDE RECORDS SUMMARY | 2023-03-19 22:30 | External Medical Summary | Summary of Care ---
Author Name Unknown Organization [facility] Address [address] [place] [address] Phone [phone] Care Team Providers Care Fourdrinier Machine Operator Name Role Phone Reggie Eddy Primary Care Provid er Reason for Visit * Auth/Cert Specialty Diagnoses / Procedures Referred By Jordyn cano Referred To Contact Diagnoses Anemia Shock (HCC) Anemia Referral ID Status Reason Start Date Expiration Date Visits Re quested Visits Authorized [id number] Encounter Details Date Type Department Care Team Description 12/21/2022 - 12/30/2022 [id number] [address] [place] [address] Charlene Cohen, DO [address] [place] [id number] Andie Chavis, DO [address] [place] [address] Edwina Thomas MD [address] [facility] [place], [place] [id number] Sabra Mccoy MD [address] [facility] [place], [place] [id number] Various: UGI,GICOLON,CDIQDC, EKG,NOXIMG Allergies Active Allergy Reactions Severity Noted Date Comments Hydromorphone Hcl Itching Medium 11/09/2015 Environmental Low 05/04/2010 Pollen -asthmatic attacks documented as of this encounter (statuses as of 12/31/2022) Medications Medication Sig Dispensed Refills Start Date [...] swallow capsule.. 30 Capsule 5 05/20/2022 Active Omeprazole 20 MG Oral Capsule Delayed Release (PriLOSEC)Indicatio ns: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 Take 1 Capsule by mouth in the morning. 90 Capsule 1 06/20/2022 Active Gabapentin 300 MG Oral Capsule (Neurontin)Indicati [...] Active Additional Information Patient taking differently:3 mL [id number] PRN, Dyspnea, Reported on 12/21/2022 Mycophenolate Mofetil [...] with ambulation 1 Each 0 12/30/2022 Active oxygen IN GAS 3 liters/min at rest and at night and 5 liters/min on activity 1 Each 0 06/14/2020 12/31/19 Discontinu ed(Refill) Tadalafil (PAH) 20 MG Oral Tablet Take 2 Tablets by mouth in the morning. 60 Tablet 9 09/08/2022 12/31/19 Discontinu ed(Refill) Labetalol HCl 200 MG Oral Tablet (Normodyne) Take by mouth daily. 0 09/05/2022 12/22/19 Discontinu ed(Medicat ion List Clean Up) documented as of this encounter (statuses as of 12/31/2022) Active Problems Problem Noted Date Iron deficiency [...] o Lost to follow up- moved to [place] o 2009: Dx with AIH: incomplete cirrhosis found incidentally at time of cholecystectomy when liver bx obtained; grade 1 varices; MARY , ASMA positive - Tx pred initially then Imuran 08/19 then MMF in 08/20 when she developed ascites o 2010: Rheum exam- not typical SLE sx- negative/normal C3/C4, SSA/SSB, centromere, BLENDING TECHNICIAN/Sm, ESR,CRP. dsDNA borderline. Guadalupita unlikely SLE. o 2012: Seen again by Rheum- Dr. Jung- photosensitive rash and raynauds. Borderline dsDNA. Guadalupita likely SLE, though possible AIH could explain (+) MARY. HCQ discussed but wanted to avoid by GI. o [id number]: multiple hospitalizations for ascites; returned to Rheum [...] as of this encounter (statuses as of 12/31/2022) Resolved Problems Problem Noted Date Resolved Date [...] as of this encounter (statuses as of 12/31/2022) Immunizations Name Administration Dates Next Due HEP [...] Sign Reading Time Taken Comments Blood Pressure 94/57 12/30/2022 10:32 AM EDT Pulse 93 12/30/2022 10:32 AM EDT Temperature 36.3 C (97.3 F) 12/30/2022 10:32 AM E DT Respiratory Rate 16 12/30/2022 10:32 AM EDT Oxygen Saturation 96% 12/30/2022 10:32 AM EDT Inhaled Oxygen Concentration - - Weight 51.9 kg (114 lb 6.4 oz) 12/30/2022 5:00 A M EDT Height 167.6 cm (5' 6") 12/21/2022 1:00 AM EDT Body Mass Index 18.46 12/21/2022 1:00 AM EDT documented in this encounter Functional Status [...] No 12/21/2022 documented as of this encounter Discharge Instructions * Discharge Instr - AVS* Corrine Sherman, DO - 12/30/2022 2:48 PM EDT Discharge Date: 12/30/2022 The information below provides you with the instructions and the list of medications you need to betaking following discharge from the hospital. If you have any questions, please ask before leaving. If you have questions after leaving, you can reach us at the numbers below. YOUR HOSPITAL PROVIDERS: Discharging Provider: Sabra Mccoy MD Provider Department: Hospital Medicine To reach this Provider Monday through Monday (8:00 AM to 4:30 PM) for any questions or test results: Call [phone] For after-hours concerns: Call [phone] and have your provider paged, or the provider bi application developer for the Department of Hospital Medicine paged. [...] available, you can go to your local [facility] during their business hours. In an EMERGENCY situation: Call 911 or go to the nearest emergency room. A BRIEF SUMMARY OF YOUR HOSPITAL STAY: You came to the hospital with bilateral feet swelling, dizziness, blurred vision, fatigue, and head/neck pain. You were found to be severely anemic (low blood counts) and were given blood transfusions as needed. You were found to have AVMs (dilated blood vessels) in your colon that were treated with laser therapy. It's likely that these AVMs were slowly bleeding over time leading to your anemia. You were started on blood pressure supporting medications since your blood pressure was low and yourpulmonary hypertension medications were stopped. You were transferred to the medical floor and unfortunately your oxygen levels were low during the daytime, which was a a new change for you. This was likely because of some fluid in your lungs from blood transfusions you received as well as the length of time you were off your home medications. After monitoring, you still required daytime oxygen but were stable for discharge with new home oxygen requirements during the daytime. You were discharged on 12/30/2022. Your main diagnosis at discharge was acute blood loss anemia Operations & Procedures performed: none Complications: none applicable Inpatient test results that are pending at discharge: none Advance Directive Documented: Advance Directive Does the Patient have an Advance Directive? No YOUR FOLLOW UP APPOINTMENTS: Primary Care Provider Information: PCP: Reggie Eddy DO [address] [place] [phone] (office) [phone] (fax) An appointment was requested with your PCP (Reggie Eddy DO) within 7 days and with your vacuum evaporation operator, Dr. Hayden within 2 weeks. (Please take this form to this visit with your primary care physician.) You need the following studies in the future: None INSTRUCTIONS: Diet: 2 gram sodium diet Activity: No strenuous activity Medications: Changes to your oxygen: 2L at night, rest, with ambulation documented in this encounter Progress Notes * Md Romeo Frey MD - 12/30/2022 11:35 AM EDT PROGRESS NOTE Thoracic / Pulmonary Medicine [facility] [address] Name: Jazmín Blevins Date: 12/30/2022 Time: 11:35 AM INTERIM HISTORY: Jazmín Blevins is a 57 yo female with PMH significant for pulmonary hypertension, Cirrhosis secondary to autoimmune hepatitis c/b esophageal varices, portal hypertension and ascites, Graves disease status post thyroidectomy c/b postop hypothyroidism, chronic anemia, SLE, Immunodeficiency, emphysema, COPD group C, GERD and tobacco use who presented with undifferentiated shock and acute on chronic anemia. Patient examined at bedside. No acute overnight events. She is resting comfortably in bed with 1L supplemental O2 via LFNC. Patient does not complain of dyspnea. Denies fever / chills, lightheadedness, nausea, headache, substernal chest pain, dyspnea, cough, diarrhea, and edema. PHYSICAL EXAM: Most Recent Vital Signs: Systolic BP: Most Recent Systolic BP Av.1 mmHg Min: 90 mmHg Max: 111 mmHg Temperature: Most Recent Temperature Av.8 C Min: 36.11 C Max: 37.11 C Pulse: Pulse Av.5 Min: 69 Max: 93 Respirations: Resp Av.2 Min: 16 Max: 18 SpO2: SpO2 Av.1 % Min: 86 % Max: 96 % Intake/Output Summary (Last 24 hours) at 12/30/2022 1135 Last data filed at 12/30/2022 1000 Gross per 24 hour Intake 767.08 ml Output 2195 ml Net -1427.92 ml Vent Settings: O2 Mode: O2 %: O2 Flow Rate: O2 flow rate: 1 L/MIN (12/30/22 1032) IPAP: CPAP/EPAP: Eyes - PERRLA, EOM intact ENT - dry mucosa Neck - No noticeable or palpable swelling, redness or rash around throat or on face Cardiovascular - RRR loud S1 and S2, no murmur Lungs - Clear to auscltation, no use of accessory muscles, no crackles or wheezes. Skin - No rashes, skin warm and dry, no erythematous areas Abdomen - Normal bowel sounds, abdomen soft and nontender Extremeties - No edema, cyanosis or clubbing Musculo Skeletal - No overt abnormality Neurological - Alert and oriented x 3 LABS: Reviewed as below: Lab results within last 7 days (see chart for full results) Units 12/30/22 0931 12/29/22175212/29/22 0632 HGB g/dL 10.7* 9.2* 7.0* HCT % 36.7 31.9* 26.0* WBC K/uL 8.11 7.99 7.90 PLT K/uL 285 248 222 Lab results within last 7 days (see chart for full results) Units 12/30/22 0931 12/29/22 1753 12/29/22 0632 12/28/22 1821 12/28/22 0846 12/27/22 0755 12/26/22 0723 Sodium mmol/L 138 136 136 135 137 137 136 Potassium mmol/L 4.0 4.0 4.4 4.1 4.4 4.3 3.1* Chloride mmol/L 102 100 103 100 104 103 95* CO2 mmol/L 26 25 26 24 24 27 31 BUN mg/dL 6 7 6 5* 5* 4* 4* Creatinine mg/dL 0.9 0.8 0.8 0.7 0.7 0.7 0.7 Glucose mg/dL 113 113 99 135* 82 94 87 Calcium mg/dL 9.2 8.3* 8.0* 8.4 8.3* 8.4 7.4* Phosphorus mg/dL 3.7 -- 2.7 -- 2.6 2.5 3.1 Serum creatinine: 0.9 mg/dL 12/30/22 0931 Estimated creatinine clearance: 56.5 mL/min No results in the last 7 days - inpatent use only MICROBIOLOGY DATA: Recent Cultures (2 Weeks) 12/21/2022 12/20/2022 6:15 AM 5:01 PM BLOOD CULTURE GROWTH -- No growth No growth QUANT URINE CULTURE GROWTH No significant growth -- CHEST X-RAY: Result Date: 12/28/2022 IMPRESSION No significant interval change. Stable small bilateral pleural effusions, left greater than right. CT CHEST: N/A TTE: Result date: 12/21/2022 IMPRESSION:The qualitative LV ejection fraction is 55-59% (normal). No LV segmental wall motion abnormalities. The right ventricular systolic function is mildly reduced . Severe tricuspid regurgitation is present. Moderate pulmonary hypertension is present. PULMONARY CONCURRENT CARE IMPRESSION: Jazmín Blevins is a 57 yo female with PMH significant for pulmonary hypertension, Cirrhosis secondary to autoimmune hepatitis c/b esophageal varices, portal hypertension and ascites, chronic anemia, SLE, emphysema, COPD group C, and tobacco use who presented with undifferentiated shock and acute on chronic anemia. Primary concern now is her increased oxygen requirements from 2L O2 baseline to4L O2 currently. #Acute on Chronic respiratory failure #Pulmonary hypertension #Anemia Patient has a PMH of pulmonary HTN and medications were withheld during patient's hospital stay dueto sepsis, now resolved. Patient was initially on 3L O2, but had increased requirements to 5L LFNC on 12/25/22. She is now breathing comfortably in bed at 3L O2. Walking oximetry was performed showing decreased O2 saturations with exertion. It is likely the patient will require supplemental O2 24hrs given her O2 saturations and hx of Pulm HTN. Patient restarted on CALENDER LET OFF OPERATOR Tadalafil 40 mg and Ambrisentan 10 mg. CXR ordered 12/28. Given that the patient was given pRBC x2 and 1.6L IV fluid upon admission for sepsis, diuresis may be needed to improve pulmonary condition. Patient was anemic today with HgB of 7.0. Patient was being given pRBCs upon entering room. Per nocturnal oximetry patient qualifies for at home nocturnal oxygen with her baseline at 3L. PULMONARY CONSULTATION SUGGESTION(S): Discharge patient home on pulmonary hypertension medications, diuretics, and bronchodilator inhalerregimen. Given patient's pulmonary hypertension and nocturnal oximetry, patient requires O2 supplementation following discharge. Follow up with vacuum evaporation operator, established with Dr. Hayden 2 weeks after discharge. Flutter valve, incentive spirometry for on going pulmonary hygiene At this time, we will be signing off. Thank you for the consult. Patient seen and discussed with Dr. Frey , Pulmonary / Thoracic Medicine Attending. Tawana Armando MS4 Pulmonary attending note : I attest that I have reviewed the student note and that the components of the history, the physicalexam, and the assessment and plan documented were performed in my presence with the student where Iverified the documentation and performed (or re-performed) the exam and medical decision making. Today , she is feeling much better . For further details, documentation and management plan , please see the trainee's note . Patient will be followed in our Pulmonary hypertension clinic in 1-2 weeks * Md Romeo Frey MD - 12/29/2022 11:39 AM EDT PROGRESS NOTE Thoracic / Pulmonary Medicine [facility] [address] Name: Jazmín Blevins Date: 12/29/2022 Time: 11:39 AM INTERIM HISTORY: Jazmín Blevins is a 57 yo female with PMH significant for pulmonary hypertension, Cirrhosis secondary to autoimmune hepatitis c/b esophageal varices, portal hypertension and ascites, Graves disease status post thyroidectomy c/b postop hypothyroidism, chronic anemia, SLE, Immunodeficiency, emphysema, COPD group C, GERD and tobacco use who presented with undifferentiated shock and acute on chronic anemia. Patient examined at bedside. No acute overnight events. She is resting comfortably in bed with 3L supplemental O2 via LFNC. Patient does not complain of dyspnea while in bed, but states that she is dyspneic on exertion. She is concerned of headache. Denies fever / chills, lightheadedness, nausea, solorio bsternal chest pain, dyspnea, cough, diarrhea, and edema. Review of Systems Constitutional: Negative for chills and fever. Respiratory: Negative. Negative for cough and shortness of breath. Cardiovascular: Negative. Negative for chest pain. Gastrointestinal: Negative. Negative for abdominal pain, constipation, diarrhea, nausea and vomiting. Genitourinary: Negative. Negative for difficulty urinating. Musculoskeletal: Positive for neck pain and neck stiffness. Skin: Negative. Neurological: Positive for headaches. Negative for weakness and light-headedness. Psychiatric/Behavioral: Negative. PHYSICAL EXAM: Most Recent Vital Signs: Systolic BP: Most Recent Systolic BP Av.2 mmHg Min: 92 mmHg Max: 107 mmHg Temperature: Most Recent Temperature Av.5 C Min: 36.33 C Max: 36.78 C Pulse: Pulse Av.7 Min: 73 Max: 86 Respirations: Resp Av Min: 16 Max: 18 SpO2: SpO2 Av.4 % Min: 91 % Max: 95 % Intake/Output Summary (Last 24 hours) at 12/29/2022 1139 Last data filed at 12/29/2022 1049 Gross per 24 hour Intake -- Output 1500 ml Net -1500 ml Vent Settings: O2 Mode: O2 %: O2 Flow Rate: O2 flow rate: 3 L/MIN (12/29/22 1000) IPAP: CPAP/EPAP: Neck - No noticeable or palpable swelling, redness or rash around throat or on face Cardiovascular - RRR, loud S1 and S2, no murmur Lungs - Clear to auscltation, no use of accessory muscles, no crackles or wheezes. Skin - No rashes, skin warm and dry, no erythematous areas Abdomen - Normal bowel sounds, abdomen distended and slightly tender Extremeties - No edema, cyanosis or clubbing Musculo Skeletal - No overt abnormality Neurological - Alert and oriented x 3 LABS: Reviewed as below: Lab results within last 7 days (see chart for full results) Units 12/29/22 0632 12/28/22 0846 12/27/22 0758 HGB g/dL 7.0* 7.5* 8.3* HCT % 26.0* 26.9* 29.5* WBC K/uL 7.90 7.55 7.76 PLT K/uL 222 229 239 Lab results within last 7 days (see chart for full results) Units 12/29/22 0632 12/28/22 1821 12/28/22 0846 12/27/22 0755 12/26/22 0723 12/25/22 0836 Sodium mmol/L 136 135 137 137 136 136 Potassium mmol/L 4.4 4.1 4.4 4.3 3.1* 2.7* Chloride mmol/L 103 100 104 103 95* 95* CO2 mmol/L 26 24 24 27 31 30 BUN mg/dL 6 5* 5* 4* 4* 6 Creatinine mg/dL 0.8 0.7 0.7 0.7 0.7 0.8 Glucose mg/dL 99 135* 82 94 87 139* Calcium mg/dL 8.0* 8.4 8.3* 8.4 7.4* 7.5* Phosphorus mg/dL 2.7 -- 2.6 2.5 3.1 3.1 Serum creatinine: 0.8 mg/dL 12/29/22 0632 Estimated creatinine clearance: 64.7 mL/min No results in the last 7 days - inpatent use only MICROBIOLOGY DATA: Recent Cultures (2 Weeks) 12/21/2022 12/20/2022 6:15 AM 5:01 PM BLOOD CULTURE GROWTH -- No growth No growth QUANT URINE CULTURE GROWTH No significant growth -- CHEST X-RAY: Result Date: 12/28/2022 IMPRESSION No significant interval change. Stable small bilateral pleural effusions, left greater than right. CT CHEST: N/A TTE: Result date: 12/21/2022 IMPRESSION:The qualitative LV ejection fraction is 55-59% (normal). No LV segmental wall motion abnormalities. The right ventricular systolic function is mildly reduced . Severe tricuspid regurgitation is present. Moderate pulmonary hypertension is present. PULMONARY CONCURRENT CARE IMPRESSION: Jazmín Blevins is a 57 yo female with PMH significant for pulmonary hypertension, Cirrhosis secondary to autoimmune hepatitis c/b esophageal varices, portal hypertension and ascites, chronic anemia, SLE, emphysema, COPD group C, and tobacco use who presented with undifferentiated shock and acute on chronic anemia. Primary concern now is her increased oxygen requirements from 2L O2 baseline to4L O2 currently. #Acute on Chronic respiratory failure #Pulmonary hypertension #Anemia Patient has a PMH of pulmonary HTN and medications were withheld during patient's hospital stay dueto sepsis, now resolved. Patient was initially on 3L O2, but had increased requirements to 5L LFNC on 12/25/22. She is now breathing comfortably in bed at 3L O2. Walking oximetry was performed showing decreased O2 saturations with exertion. It is likely the patient will require supplemental O2 24hrs given her O2 saturations and hx of Pulm HTN. Patient restarted on CALENDER LET OFF OPERATOR Tadalafil 40 mg and Ambrisentan 10 mg. CXR ordered 12/28. Given that the patient was given pRBC x2 and 1.6L IV fluid upon admission for sepsis, diuresis may be needed to improve pulmonary condition. Patient was anemic today with HgB of 7.0. Patient was being given pRBCs upon entering room. PULMONARY CONSULTATION SUGGESTION(S): Diurese patient as tolerable Continue Pulmonary hypertension medications Maintain O2 saturation > 90% Given patient's pulmonary hypertension, it may not be shocking if the patient requires 24 hr O2 supplementation following discharge Perform ambulatory oximetry before discharge to assess quantity of O2 supplementation required Follow-up in pulmonary clinic following discharge Flutter valve, incentive spirometry for ongoing pulmonary hygiene Thank you for consult. We will continue to follow. Please call or TT if questions Patient seen and discussed with Dr. Frey, Pulmonary / Thoracic Medicine Attending. Steve Virk, MS3 Pulmonary attending note: I attest that I have reviewed the student note and that the components of the history, the physicalexam, and the assessment and plan documented were performed in my presence with the student where Iverified the documentation and performed (or re-performed) the exam and medical decision making. Today, patient is feeling much better, received some diuretic, oxygen requirement has also decreased. For further details, documentation, please refer to the trainee's note Will follow the patient with you. * Hamzah Mcdonald MD - 12/29/2022 5:49 AM EDT Date of admission: 12/21/2022 Summary: Ms. Blevins is a 57 year old female with PMHx significant for Pulmonary hypertension, Cirrhosis secondary to autoimmune hepatitis c/b esophageal varices, portal hypertension and ascites, Graves disease status post thyroidectomy c/b postop hypothyroidism, chronic anemia, SLE, Immunodeficiency, emphysema, COPD group C, GERD and tobacco use who presented with undifferentiated shock and acute on chronic anemi. OVERNIGHT: No acute events overnight. SUBJECTIVE: This morning the patient was seen and examined at bedside. Reported she has been frequently peeing overnight. She does not endorse any active complaints. Continues to deny fevers, chills, SOB, nausea, abdominal or chest pain, vomiting or diarrhea. Reports last bowel movement was yesterday which wasnon-bloody. Detailed ROS done, pertinent findings documented above, otherwise negative. OBJECTIVE: Most recent vital signs: BP: 102 mmHg/61 mmHg (12/29/22543) Pulse: 83 (12/29/22543) Temp: 36.39 C (12/29/22543) Resp: 17 (12/29/22543) SpO2: 93 % (12/29/22543) Intake and Output: No intake or output data in the 24 hours ending 12/29/22548 Weight: 52.8 kg (116 lb 8 oz) (12/29/22511) Lines/Drains/Airways: Peripheral Line Anterior;Left Wrist 22 Gauge (Active) Number of days: 4 General: well appearing, resting comfortably, in no acute distress Eyes: Sclera anicteric, conjunctiva clear ENT: External ears and nose normal, moist mucous membranes CV: Regular rate and rhythm, no murmur, rub, or gallop Lungs: Non-labored breathing, Clear to auscultation bilaterally, no wheezing, or crackles Abdomen: Non-distended, soft, non-tender, no palpable masses or organomegaly, normal bowel sounds Extremities: No cyanosis, or edema. Skin: Warm, dry, in-tact. No rashes Neurologic: Awake, Alert, and Oriented, no focal neurological deficits Laboratory values: Lab results within last 7 days (see chart for full results) Units 12/28/22 0846 12/27/22 0758 12/26/22 0723 HGB g/dL 7.5* 8.3* 7.5* HCT % 26.9* 29.5* 26.7* WBC K/uL 7.55 7.76 9.25 PLT K/uL 229 239 207 Lab results within last 7 days (see chart for full results) Units 12/28/22 1821 12/28/22 0846 12/27/22 0755 12/26/22 0723 12/25/22 0836 12/24/22 0634 Sodium mmol/L 135 137 137 136 136 139 Potassium mmol/L 4.1 4.4 4.3 3.1* 2.7* 3.5 Chloride mmol/L 100 104 103 95* 95* 102 CO2 mmol/L 24 24 27 31 30 28 BUN mg/dL 5* 5* 4* 4* 6 7 Creatinine mg/dL 0.7 0.7 0.7 0.7 0.8 0.7 Glucose mg/dL 135* 82 94 87 139* 107 Calcium mg/dL 8.4 8.3* 8.4 7.4* 7.5* 8.2* Phosphorus mg/dL -- 2.6 2.5 3.1 3.1 2.5 Serum creatinine: 0.7 mg/dL 12/28/22 1821 Estimated creatinine clearance: 73.9 mL/min No results in the last 7 days - inpatent use only IMAGING: XR CHEST 1 VIEW Narrative: EXAM XR CHEST 1 VIEW-12/28/2022 9:55 am HISTORY concern for decompensation COMPARISON Chest radiograph 12/20/2022. TECHNIQUE Semi-upright AP view of the chest. FINDINGS Lines/Tubes/Devices: None. Lungs/Pleura: No focal consolidation. Minimal bibasilar atelectasis with small bilateral pleural effusions, left greater than right. No discernible pneumothorax. Heart/Mediastinum: Size and contours are within normal limits. Bones/Soft Tissues: No acute osseous finding. Upper Abdomen: Visualized portions are unremarkable. Impression: IMPRESSION No significant interval change. Stable small bilateral pleural effusions, left greater than right. Assessment & Plan Principal Problem: Shock (HCC) Active Problems: Gastrointestinal hemorrhage Acute on chronic respiratory failure with hypoxia (HCC) Pleural effusion Acute pulmonary edema (HCC) Acute on chronic anemia Pain of upper abdomen Iron deficiency anemia due to chronic blood loss Resolved Problems: * No resolved hospital problems. * IMPRESSION AND PLAN: Ms. Blevins is a 57 year old female with PMHx significant for Pulm htn, Cirrhosis 2/2 autoimmunehepatitis c/b esophageal varices, portal hypertension c/b ascites who presented with undifferentiated shock in a setting of acute on chronic anemi. Subsequently transferred to the medicine floors forongoing monitoring and management. Currently Hb stable however noted to have increasing Oxygen requirements in a setting of pulm Htn and COPD. Shock, undifferentiated Resolved, Acute on chronic anemia, Hypokalemia, Hypomagnesemia, Hypocalcemia, S/p Colonoscopy w/ APC for angiodysplasias. S/p Venofer 300 for 3 days. Hb today 7.0. Low concern for ongoing bleed, will continue to monitor. - c/w Iron sulfate 350 QD - transfuse pRBC; f/u post transfusion CBC - Monitor Hgb daily - Monitor electrolytes and replenish as needed. Pulmonary Htn, Patient noted to have increasing O2 requirements (baseline 2 L). Ambox showing increasing O2 requirements with ambulation - f/u thorac medicine consult, apprec reccs - Titrate O2 to keep SpO2 >90% - c/w Tadalafil and ambrisentan - Ambox and noc ox prior to d/c - recommend diursesis - Incentive spirometry, flutter valve, OOB to chair as able - f/u in pul clininc on d/c - c/w lasix 60 qd - track I/O's Hx of cirrhosis 2/2 autoimmune hepatitis, Esophageal Candidiasis, Patient has a known Hx of cirrhosis secondary to autoimmune hepatitis c/b with prior esophageal varices, portal hypertension and ascites. - Continue Fluconazole 200 mg QD - last dose on 01/05/23 - Continue holding CALENDER LET OFF OPERATOR nadolol, Aldactone, Torsemide, in setting of soft BP. Diarrhea Patient reports improvement in her prior diarrhea. - c/w holding lactulose - loperamide prn Neck pain, Chronic back pain, Neck pain likely musculoskeletal in nature, no nuchal rigidity - PT/OT - Continue guest experience captain tramadol, trazodone and gabapentin Chronic Conditions: - Hypothyroidism - continue guest experience captain levothyroxine - GERD - Continue omeprazole 20 mg QD MISC -Diet: Regular diet -Bowel Regimen: Prn loperamide -Rehab: PT/OT--Ordered -Code Status: Full Code PHARMACOLOGIC VTE PROPHYLAXIS: hEParin CODE STATUS: Full Code EXPECTED DISCHARGE DATE: 12/29/2022 Patient plan was discussed with Sabra Mccoy MD Please see attending attestation for any updates or additions to plan. Hamzah Mcdonald MD Resident Physician PGY-1 Associated attestation - Sabra Mccoy MD - 12/29/2022 1:25 PM EDT I saw and evaluated the patient today. I have reviewed the trainee note and agree. Patient remains on 4 liters NC. Urine output as been good per the patient but we have been unable to get accurate I&O's. Hgb is 7.0 this morning. Will transfuse 1 unit RBCs given her continued hypoxia. Continue diuresis with 60 mg IV lasix daily. Rest of plan per Dr. Mcdonald's note. * Hamzah Mcdonald MD - 12/28/2022 5:27 AM EDT Date of admission: 12/21/2022 Summary: Ms. Blevins is a 57 year old female with PMHx significant for Pulmonary hypertension, Cirrhosis secondary to autoimmune hepatitis c/b esophageal varices, portal hypertension and ascites, Graves disease status post thyroidectomy c/b postop hypothyroidism, chronic anemia, SLE, Immunodeficiency, emphysema, COPD group C, GERD and tobacco use who presented with undifferentiated shock and acute on chronic anemi. OVERNIGHT: No acute events overnight. SUBJECTIVE: This morning the patient was seen and examined at bedside. Endorses chest pain at rest which was reproducible. No SOB, no palpitations and no correlation of chest pain to exertion. No other active complaints were endorsed Detailed ROS done, pertinent findings documented above, otherwise negative. OBJECTIVE: Most recent vital signs: BP: 112 mmHg/67 mmHg (12/28/22 1000) Pulse: 72 (12/28/22 1000) Temp: 36.78 C (12/28/22 1000) Resp: 18 (12/28/22 1000) SpO2: 97 % (12/28/22 1000) Intake and Output: Intake/Output Summary (Last 24 hours) at 12/28/2022 1224 Last data filed at 12/27/2022 1700 Gross per 24 hour Intake 840 ml Output -- Net 840 ml Weight: 55.7 kg (122 lb 11.2 oz) (12/28/22 0500) Lines/Drains/Airways: Peripheral Line Lower;Right Arm 22 Gauge (Active) Number of days: 3 Peripheral Line Anterior;Left Wrist 22 Gauge (Active) Number of days: 3 General: well appearing, resting comfortably, in no acute distress Eyes: Sclera anicteric, conjunctiva clear ENT: External ears and nose normal, moist mucous membranes CV: Regular rate and rhythm Lungs: Non-labored breathing, Clear to auscultation bilaterally, no wheezing Abdomen: Non-distended, soft, moderately tender in lower quadrants, no palpable masses or organomegaly, normal bowel sounds Extremities: No cyanosis, or edema. Neurologic: Awake, Alert, and Oriented, no focal neurological deficits Laboratory values: Lab results within last 7 days (see chart for full results) Units 12/28/22 0846 12/27/22 0758 12/26/22 0723 HGB g/dL 7.5* 8.3* 7.5* HCT % 26.9* 29.5* 26.7* WBC K/uL 7.55 7.76 9.25 PLT K/uL 229 239 207 Lab results within last 7 days (see chart for full results) Units 12/28/22 0846 12/27/22 0755 12/26/22 0723 12/25/22 0836 12/24/22 0634 Sodium mmol/L 137 137 136 136 139 Potassium mmol/L 4.4 4.3 3.1* 2.7* 3.5 Chloride mmol/L 104 103 95* 95* 102 CO2 mmol/L 24 27 31 30 28 BUN mg/dL 5* 4* 4* 6 7 Creatinine mg/dL 0.7 0.7 0.7 0.8 0.7 Glucose mg/dL 82 94 87 139* 107 Calcium mg/dL 8.3* 8.4 7.4* 7.5* 8.2* Phosphorus mg/dL 2.6 2.5 3.1 3.1 2.5 Serum creatinine: 0.7 mg/dL 12/28/22 0846 Estimated creatinine clearance: 78 mL/min No results in the last 7 days - inpatent use only IMAGING: XR CHEST 1 VIEW Narrative: EXAM XR CHEST 1 VIEW-12/28/2022 9:55 am HISTORY concern for decompensation COMPARISON Chest radiograph 12/20/2022. TECHNIQUE Semi-upright AP view of the chest. FINDINGS Lines/Tubes/Devices: None. Lungs/Pleura: No focal consolidation. Minimal bibasilar atelectasis with small bilateral pleural effusions, left greater than right. No discernible pneumothorax. Heart/Mediastinum: Size and contours are within normal limits. Bones/Soft Tissues: No acute osseous finding. Upper Abdomen: Visualized portions are unremarkable. Impression: IMPRESSION No significant interval change. Stable small bilateral pleural effusions, left greater than right. Assessment & Plan Principal Problem: Shock (HCC) Active Problems: Gastrointestinal hemorrhage Acute on chronic respiratory failure with hypoxia (HCC) Pleural effusion Acute pulmonary edema (HCC) Acute on chronic anemia Pain of upper abdomen Iron deficiency anemia due to chronic blood loss Resolved Problems: * No resolved hospital problems. * IMPRESSION AND PLAN: Ms. Blevins is a 57 year old female with PMHx significant for Pulm htn, Cirrhosis 2/2 autoimmunehepatitis c/b esophageal varices, portal hypertension c/b ascites who presented with undifferentiated shock in a setting of acute on chronic anemi. Subsequently transferred to the medicine floors forongoing monitoring and management Shock, undifferentiated Resolved, Acute on chronic anemia, Hypokalemia, Hypomagnesemia, Hypocalcemia, S/p Colonoscopy w/ APC for angiodysplasias. Hb improved. S/p Venofer 300 for 3 days. This morning patient endorses reproducible chest pain. EKG with no acute changes. Noted to have a Hb of 7.5 today (8.3 yesterday - possibly hemoconcentrated sample) - Troponin T, repeat in 6hrs - c/w Iron sulfate 350 QD - Monitor Hgb daily - Monitor vitals. - Monitor electrolytes and replenish as needed. Pulmonary Htn, Overnight patient noted to have increasing O2 requirements. Ambox showing increasing O2 requirements with ambulation - f/u thorac medicine consult, apprec reccs - CXR - proBNP - Monitor O2 requirements - Continue guest experience captain tadalafil 40 mg QD - c/w guest experience captain ambrisentan 10mg PO QD Hx of cirrhosis 2/2 autoimmune hepatitis, Esophageal Candidiasis, Patient has a known Hx of cirrhosis secondary to autoimmune hepatitis c/b with prior esophageal varices, portal hypertension and ascites. 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 Diarrhea Patient reports improvement in her prior diarrhea. - c/w holding lactulose - loperamide prn Neck pain, Chronic back pain, Neck pain likely musculoskeletal in nature, no nuchal rigidity - PT/OT - Continue guest experience captain tramadol, trazodone and gabapentin Chronic Conditions: - Hypothyroidism - continue guest experience captain levothyroxine - GERD - Continue omeprazole 20 mg QD MISC -Diet: Regular diet -Bowel Regimen: Prn loperamide -Rehab: PT/OT--Ordered -Code Status: Full Code PHARMACOLOGIC VTE PROPHYLAXIS: hEParin CODE STATUS: Full Code EXPECTED DISCHARGE DATE: 12/29/2022 Patient plan was discussed with Sabra Mccoy MD Please see attending attestation for any updates or additions to plan. aHmzah Mcdonald MD Resident Physician PGY-1 Associated attestation - Sabra Mccoy MD - 12/28/2022 2:05 PM EDT I saw and evaluated the patient today. I have reviewed the trainee note and agree. * Hamzah Mcdonald MD - 12/27/2022 5:29 AM EDT Date of admission: 12/21/2022 Summary: Ms. Blevins is a 57 year old female with PMHx significant for Pulmonary hypertension, Cirrhosis secondary to autoimmune hepatitis c/b esophageal varices, portal hypertension and ascites, Graves disease status post thyroidectomy c/b postop hypothyroidism, chronic anemia, SLE, Immunodeficiency, emphysema, COPD group C, GERD and tobacco use who presented with undifferentiated shock and acute on chronic anemi. OVERNIGHT: No acute events overnight. SUBJECTIVE: This morning the patient was seen and evaluated at bedside. She reported no active complaints and continues to deny any short of breath despite desaturations. No nausea, vomiting or diarrhea. Detailed ROS done, pertinent findings documented above, otherwise negative. OBJECTIVE: Most recent vital signs: BP: 108 mmHg/60 mmHg (12/27/22 1000) Pulse: 78 (12/27/22 1000) Temp: 36.61 C (12/27/22 1000) Resp: 18 (12/27/22 1000) SpO2: 93 % (12/27/22 1000) Intake and Output: Intake/Output Summary (Last 24 hours) at 12/27/2022 1010 Last data filed at 12/26/2022 1700 Gross per 24 hour Intake 1235 ml Output -- Net 1235 ml Weight: 50 kg (110 lb 3.2 oz) (12/27/22 0600) Lines/Drains/Airways: Peripheral Line Lower;Right Arm 22 Gauge (Active) Number of days: 2 Peripheral Line Anterior;Left Wrist 22 Gauge (Active) Number of days: 2 General: well appearing, resting comfortably, in no acute distress Eyes: Sclera anicteric, conjunctiva clear ENT: External ears and nose normal, moist mucous membranes CV: Regular rate and rhythm, no murmur Lungs: Non-labored breathing, Clear to auscultation bilaterally, no wheezing Abdomen: Non-distended, soft, non-tender, no palpable masses or organomegaly Extremities: No cyanosis, or edema. Skin: Warm, dry, in-tact. No rashes Neurologic: Awake, Alert, and Oriented, no focal neurological deficits Psych: Appropriate mood and affect Laboratory values: Lab results within last 7 days (see chart for full results) Units 12/27/22 0758 12/26/22 0723 12/25/22 1100 HGB g/dL 8.3* 7.5* 8.0* HCT % 29.5* 26.7* 28.3* WBC K/uL 7.76 9.25 10.13 PLT K/uL 239 207 183 Lab results within last 7 days (see chart for full results) Units 12/26/22 0723 12/25/22 0836 12/24/22 0634 12/23/22 0629 12/22/22 0437 Sodium mmol/L 136 136 139 138 136 Potassium mmol/L 3.1* 2.7* 3.5 3.2* 3.5 Chloride mmol/L 95* 95* 102 100 99 CO2 mmol/L 31 30 28 29 27 BUN mg/dL 4* 6 7 13 20 Creatinine mg/dL 0.7 0.8 0.7 0.9 1.0 Glucose mg/dL 87 139* 107 95 157* Calcium mg/dL 7.4* 7.5* 8.2* 8.1* 8.2* Phosphorus mg/dL 3.1 3.1 2.5 2.2* 3.3 Serum creatinine: 0.7 mg/dL 12/26/22 0723 Estimated creatinine clearance: 70 mL/min Lab results within last 7 days (see chart for full results) Units 12/21/22 0433 12/21/22 0125 12/20/22 1701 Lactate, Whole Blood mmol/L -- -- 1.9 Lactate mmol/L 1.1 1.6 -- IMAGING: CTA ABD/PELVIS Narrative: PROCEDURE INFORMATION: Exam: CTA Abdomen and Pelvis With Contrast Exam date and time: 12/20/2022 7:21 PM Age: 57 years old Clinical indication: Other: Anemia TECHNIQUE: Imaging protocol: Computed tomographic angiography of [...] prior 12 months: This patient has received 0 known CTs and 0 known cardiac nuclear medicine studies in the 12 months prior to the current study. COMPARISON: CT CHEST WO(Adult) 10/27/2021 3:03 PM FINDINGS: Lungs: Airspace opacities are seen in the bilateral lower lobes. Pleural spaces: Small left pleural effusion. Aorta: Atherosclerosis of the abdominal aorta and iliac arteries. No aneurysm. Celiac trunk and mesenteric arteries: No occlusion or significant stenosis. Renal arteries: No occlusion or significant stenosis. Right iliac arteries: No occlusion or significant stenosis. Left iliac arteries: No occlusion or significant stenosis. Liver: Liver demonstrate nodular contour secondary to cirrhosis. No focal mass. Gallbladder and bile ducts: Gallbladder is surgically absent. No bile duct obstruction. Pancreas: Mild peripancreatic inflammation and trace free fluid. No pancreatic duct dilatation or pseudocyst. Spleen: Unremarkable. No splenomegaly. Adrenal glands: Unremarkable. No mass. Kidneys and ureters: Congenital malrotation of the right kidney. No hydronephrosis or nephrolithiasis. Stomach and bowel: No GI bleed. No bowel obstruction. There is wall thickening involving the proximal ascending colon, descending and sigmoid colon. Appendix: No evidence of appendicitis. Intraperitoneal space: Small volume ascites. No free air. Lymph nodes: Few prominent nonenlarged peripancreatic lymph nodes. Few moderate appearing borderline enlarged left para-aortic lymph nodes. Urinary bladder: Unremarkable. No mass. Reproductive: Unremarkable as visualized. Bones/joints: No acute fracture. Soft tissues: Unremarkable. Impression: IMPRESSION: 1. No evidence for GI bleed. 2. Finding concerning for pancreatitis. No pancreatic duct dilatation or pseudocyst. Recommend correlation with labs. 3. Hepatic cirrhosis with ascites. 4. Wall thickening of the proximal ascending, descending and sigmoid colon which could be secondary to hypertensive portal colopathy. However, infectious versus inflammatory colitis cannot be excluded. 5. Nonenlarged peripancreatic and few borderline enlarged left para-aortic lymph nodes which could be reactive. THIS DOCUMENT HAS BEEN ELECTRONICALLY SIGNED BY MARK LEMUS MD XR CHEST 1 VIEW Narrative: PROCEDURE INFORMATION: Exam: XR Chest Exam date and time: 12/20/2022 5:17 PM Age: 57 years old Clinical indication: Other: Sepsis TECHNIQUE: Imaging protocol: Radiologic exam of the chest. Views: 1 view. COMPARISON: DX XR CHEST 2 VIEWS 05/17/2022 3:00 PM FINDINGS: Lungs: Hazy bibasilar opacities. Upper lung zones are clear. Pleural spaces: Small bilateral pleural effusions. No pneumothorax. Heart/Mediastinum: Unremarkable. No cardiomegaly. Bones/joints: Unremarkable. Impression: IMPRESSION: Hazy bibasilar airspace opacities secondary to infiltrate versus atelectasis with small bilateral pleural effusions. THIS DOCUMENT HAS BEEN ELECTRONICALLY SIGNED BY MARK LEMUS MD Assessment & Plan Principal Problem: Shock (HCC) Active Problems: Gastrointestinal hemorrhage Acute on chronic respiratory failure with hypoxia (HCC) Pleural effusion Acute pulmonary edema (HCC) Acute on chronic anemia Pain of upper abdomen Iron deficiency anemia due to chronic blood loss Resolved Problems: * No resolved hospital problems. * IMPRESSION AND PLAN: Ms. Blevins is a 57 year old female with PMHx significant for Pulm htn, Cirrhosis 2/2 autoimmunehepatitis c/b esophageal varices, portal hypertension c/b ascites who presented with undifferentiated shock in a setting of acute on chronic anemi. Subsequently transferred to the medicine floors forongoing monitoring and management Shock, undifferentiated Resolved, Acute on chronic anemia, Hypokalemia, Hypomagnesemia, Hypocalcemia, Hb improved at 8.3 today. - Iron sulfate 350 QD - Monitor Hgb daily - Monitor vitals. - Monitor electrolytes and replenish as needed. Pulmonary Htn, Overnight patient noted to have increasing O2 requirements. Ambox showing increasing O2 requirements with ambulation - Ambox today - Monitor O2 requirements - Continue guest experience captain tadalafil 40 mg QD - c/w guest experience captain ambrisentan 10mg PO QD Hx of cirrhosis 2/2 autoimmune hepatitis, Esophageal Candidiasis, Patient has a known Hx of cirrhosis secondary to autoimmune hepatitis c/b with prior esophageal varices, portal hypertension and ascites. 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 Diarrhea Patient reports improvement in her prior diarrhea. - c/w holding lactulose - loperamide prn Neck pain, Chronic back pain, Neck pain likely musculoskeletal in nature, no nuchal rigidity - PT/OT - Continue guest experience captain tramadol, trazodone and gabapentin Chronic Conditions: - Hypothyroidism - continue guest experience captain levothyroxine - GERD - Continue omeprazole 20 mg QD MISC -Diet: Regular diet -Bowel Regimen: Prn loperamide -Rehab: PT/OT--Ordered -Code Status: Full Code PHARMACOLOGIC VTE PROPHYLAXIS: hEParin CODE STATUS: Full Code EXPECTED DISCHARGE DATE: 12/28/2022 Patient plan was discussed with Edwina Thomas MD Please see attending attestation for any updates or additions to plan. Hamzah Mcdonald MD Resident Physician PGY-1 Associated attestation - Edwina Thomas MD - 12/27/2022 1:00 PM EDT I saw and evaluated the patient today. I have reviewed the trainee note and agree. I spent a total of 45 minutes coordinating, documenting, and providing care for this patient excluding time spent in the performance of separately billed services or time spent by another provider/QHP. Her oxygen requirements continues to be high in requiring 5 L to maintain saturations above 90%. Continue to wean as tolerated. She does not appear overtly volume overloaded. Continue to hold diuretics and restart as tolerated. * Hamzah Mcdonald MD - 12/26/2022 3:33 PM EDT Date of admission: 12/21/2022 Summary: Ms. Blevins is a 57 year old female with PMHx significant for Pulmonary hypertension, Cirrhosis secondary to autoimmune hepatitis c/b esophageal varices, portal hypertension and ascites, Graves disease status post thyroidectomy c/b postop hypothyroidism, chronic anemia, SLE, Immunodeficiency, emphysema, COPD group C, GERD and tobacco use who presented with undifferentiated shock and acute on chronic anemi. OVERNIGHT: No acute events overnight. SUBJECTIVE: This morning the patient was seen and evaluated at bedside. Reported multiple bowel movements overnight with no active complaints. OBJECTIVE: Most recent vital signs: BP: 131 mmHg/75 mmHg (12/26/22 1351) Pulse: 69 (12/26/22 1351) Temp: 36.39 C (12/26/22 1351) Resp: 16 (12/26/22 1351) SpO2: 95 % (12/26/22 1351) Intake and Output: Intake/Output Summary (Last 24 hours) at 12/26/2022 1533 Last data filed at 12/26/2022 1300 Gross per 24 hour Intake 1575 ml Output -- Net 1575 ml Weight: 50.5 kg (111 lb 4.8 oz) (12/26/22 0541) Lines/Drains/Airways: Peripheral Line Lower;Right Arm 22 Gauge (Active) Number of days: 1 Peripheral Line Anterior;Left Wrist 22 Gauge (Active) Number of days: 1 General: well appearing, resting comfortably, in no acute distress Eyes: Sclera anicteric, conjunctiva clear ENT: External ears and nose normal, moist mucous membranes CV: Regular rate and rhythm Lungs: Non-labored breathing, Clear to auscultation bilaterally, no wheezing, or crackles Abdomen: mildly distended, soft, non-tender, no palpable masses or organomegaly, normal bowel sounds Extremities: No cyanosis, or edema. Skin: Warm, dry, in-tact. No rashes Neurologic: Awake, Alert, and Oriented, no focal neurological deficits Psych: Appropriate mood and affect Laboratory values: Lab results within last 7 days (see chart for full results) Units 12/26/22 0723 12/25/22 1100 12/24/22 0634 HGB g/dL 7.5* 8.0* 7.4* HCT % 26.7* 28.3* 26.7* WBC K/uL 9.25 10.13 12.05* PLT K/uL 207 183 197 Lab results within last 7 days (see chart for full results) Units 12/26/22 0723 12/25/22 0836 12/24/22 0634 12/23/22 0629 12/22/22 0437 Sodium mmol/L 136 136 139 138 136 Potassium mmol/L 3.1* 2.7* 3.5 3.2* 3.5 Chloride mmol/L 95* 95* 102 100 99 CO2 mmol/L 31 30 28 29 27 BUN mg/dL 4* 6 7 13 20 Creatinine mg/dL 0.7 0.8 0.7 0.9 1.0 Glucose mg/dL 87 139* 107 95 157* Calcium mg/dL 7.4* 7.5* 8.2* 8.1* 8.2* Phosphorus mg/dL 3.1 3.1 2.5 2.2* 3.3 Serum creatinine: 0.7 mg/dL 12/26/22 0723 Estimated creatinine clearance: 70.7 mL/min Lab results within last 7 days (see chart for full results) Units 12/21/22 0433 12/21/22 0125 12/20/22 1701 Lactate, Whole Blood mmol/L -- -- 1.9 Lactate mmol/L 1.1 1.6 -- IMAGING: CTA ABD/PELVIS Narrative: PROCEDURE INFORMATION: Exam: CTA Abdomen and Pelvis With Contrast Exam date and time: 12/20/2022 7:21 PM Age: 57 years old Clinical indication: Other: Anemia TECHNIQUE: Imaging protocol: Computed tomographic angiography of [...] prior 12 months: This patient has received 0 known CTs and 0 known cardiac nuclear medicine studies in the 12 months prior to the current study. COMPARISON: CT CHEST WO(Adult) 10/27/2021 3:03 PM FINDINGS: Lungs: Airspace opacities are seen in the bilateral lower lobes. Pleural spaces: Small left pleural effusion. Aorta: Atherosclerosis of the abdominal aorta and iliac arteries. No aneurysm. Celiac trunk and mesenteric arteries: No occlusion or significant stenosis. Renal arteries: No occlusion or significant stenosis. Right iliac arteries: No occlusion or significant stenosis. Left iliac arteries: No occlusion or significant stenosis. Liver: Liver demonstrate nodular contour secondary to cirrhosis. No focal mass. Gallbladder and bile ducts: Gallbladder is surgically absent. No bile duct obstruction. Pancreas: Mild peripancreatic inflammation and trace free fluid. No pancreatic duct dilatation or pseudocyst. Spleen: Unremarkable. No splenomegaly. Adrenal glands: Unremarkable. No mass. Kidneys and ureters: Congenital malrotation of the right kidney. No hydronephrosis or nephrolithiasis. Stomach and bowel: No GI bleed. No bowel obstruction. There is wall thickening involving the proximal ascending colon, descending and sigmoid colon. Appendix: No evidence of appendicitis. Intraperitoneal space: Small volume ascites. No free air. Lymph nodes: Few prominent nonenlarged peripancreatic lymph nodes. Few moderate appearing borderline enlarged left para-aortic lymph nodes. Urinary bladder: Unremarkable. No mass. Reproductive: Unremarkable as visualized. Bones/joints: No acute fracture. Soft tissues: Unremarkable. Impression: IMPRESSION: 1. No evidence for GI bleed. 2. Finding concerning for pancreatitis. No pancreatic duct dilatation or pseudocyst. Recommend correlation with labs. 3. Hepatic cirrhosis with ascites. 4. Wall thickening of the proximal ascending, descending and sigmoid colon which could be secondary to hypertensive portal colopathy. However, infectious versus inflammatory colitis cannot be excluded. 5. Nonenlarged peripancreatic and few borderline enlarged left para-aortic lymph nodes which could be reactive. THIS DOCUMENT HAS BEEN ELECTRONICALLY SIGNED BY MARK LEMUS MD XR CHEST 1 VIEW Narrative: PROCEDURE INFORMATION: Exam: XR Chest Exam date and time: 12/20/2022 5:17 PM Age: 57 years old Clinical indication: Other: Sepsis TECHNIQUE: Imaging protocol: Radiologic exam of the chest. Views: 1 view. COMPARISON: DX XR CHEST 2 VIEWS 05/17/2022 3:00 PM FINDINGS: Lungs: Hazy bibasilar opacities. Upper lung zones are clear. Pleural spaces: Small bilateral pleural effusions. No pneumothorax. Heart/Mediastinum: Unremarkable. No cardiomegaly. Bones/joints: Unremarkable. Impression: IMPRESSION: Hazy bibasilar airspace opacities secondary to infiltrate versus atelectasis with small bilateral pleural effusions. THIS DOCUMENT HAS BEEN ELECTRONICALLY SIGNED BY MARK LEMUS MD Assessment & Plan Principal Problem: Shock (HCC) Active Problems: Gastrointestinal hemorrhage Acute on chronic respiratory failure with hypoxia (HCC) Pleural effusion Acute pulmonary edema (HCC) Acute on chronic anemia Pain of upper abdomen Iron deficiency anemia due to chronic blood loss Resolved Problems: * No resolved hospital problems. * IMPRESSION AND PLAN: Ms. Blevins is a 57 year old female with PMHx significant for Pulm htn, Cirrhosis 2/2 autoimmunehepatitis c/b esophageal varices, portal hypertension c/b ascites who presented with undifferentiated shock in a setting of acute on chronic anemi. Subsequently transferred to the medicine floors forongoing monitoring and management Shock, undifferentiated Resolved, Acute on chronic anemia, Hypokalemia, Hypomagnesemia, Hypocalcemia, Hb stable at 7.5 today. - Last dose of Venofer today - Monitor Hgb daily - Monitor vitals. - Monitor electrolytes and replenish as needed. Hx of cirrhosis 2/2 autoimmune hepatitis, Esophageal Candidiasis, Patient has a known Hx of cirrhosis secondary to autoimmune hepatitis c/b with prior esophageal varices, portal hypertension and ascites. 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 Pulmonary Htn, Overnight patient noted to have increasing O2 requirements. Ambox showing increasing O2 requirements with ambulation - Continue guest experience captain tadalafil 40 mg QD - Resume guest experience captain ambrisentan per Pulm reccs Diarrhea Patient continues to endorse multiple bowel movements despite decreasing lactulose dosage. - hold lactulose - loperamide prn Neck pain, Chronic back pain, Neck pain likely musculoskeletal in nature, no nuchal rigidity - PT/OT - Continue guest experience captain tramadol, trazodone and gabapentin Chronic Conditions: - Hypothyroidism - continue guest experience captain levothyroxine - GERD - Continue omeprazole 20 mg QD MISC -Diet: Regular diet -Bowel Regimen: Lactulose 30g TID -Rehab: PT/OT--Ordered -Code Status: Full Code PHARMACOLOGIC VTE PROPHYLAXIS: hEParin CODE STATUS: Full Code EXPECTED DISCHARGE DATE: 12/27/2022 Patient plan was discussed with Edwina Thomas MD Please see attending attestation for any updates or additions to plan. Hamzah Mcdonald MD Resident Physician PGY-1 Associated attestation - Edwina Thomas MD - 12/27/2022 12:51 PM EDT I saw and evaluated the patient 12/26/22. I have reviewed the trainee note and agree. No acute events overnight. She is lying comfortably in the bed not in any acute distress. Her oxygen requirements has been high and requiring 5 L to maintain saturations above 90%. His symptoms likely secondary to pulmonary hypertension at this point. Continue ambrisentan and tadalafil. Wean oxygen as tolerated to maintain saturations above 90%. I spent a total of 45 minutes coordinating, documenting, and providing care for this patient excluding time spent in the performance of separately billed services or time spent by another provider/QHP. * Esther Harp, Medical Student - 12/25/2022 9:02 AM EDT Date of admission: 12/21/2022 Summary: Ms. Blevins is a 57 year old female with PMHx significant for Pulmonary hypertension, Cirrhosis secondary to autoimmune hepatitis c/b esophageal varices, portal hypertension and ascites, Graves disease status post thyroidectomy c/b postop hypothyroidism, chronic anemia, SLE, Immunodeficiency, emphysema, COPD group C, GERD and tobacco use who presented with undifferentiated shock and acute on chronic anemi. OVERNIGHT: No acute events overnight. SUBJECTIVE: Patient is doing well resting comfortably in bed. Denies chest pain, dyspnea, SOB, N/V, abdominal pain, constipation, dysuria and hematuria. Admits to having diarrhea without any hematochezia. OBJECTIVE: Most recent vital signs: BP: 87 mmHg/44 mmHg (12/25/22800) Pulse: 66 (12/25/22800) Temp: 36.39 C (12/25/22800) Resp: 16 (12/25/22800) SpO2: 95 % (12/25/22800) Intake and Output: Intake/Output Summary (Last 24 hours) at 12/25/2022 09 Last data filed at 12/25/2022 0000 Gross per 24 hour Intake 2960 ml Output -- Net 2960 ml Weight: 53.6 kg (118 lb 1.6 oz) (12/25/22518) Lines/Drains/Airways: Peripheral Line Left;Upper Arm 22 Gauge (Active) Number of days: 2 Peripheral Line Lower;Posterior;Right Arm 20 Gauge (Active) Number of days: 1 GENERAL: Laying in bed, alert and interactive, in no acute distress HEAD: NCAT EYES: nonicteric, EOM grossly intact MOUTH: MMM NECK: supple, normal ROM. CARDIO: regular rate and rhythm, no murmurs/rubs/gallops. PULM: good respiratory effort, clear to auscultation in all lung herrera, no wheezing, rales or rhonchi. ABDOMEN: soft, non-tender, non-distended. EXTREMITIES: no edema or cyanosis. NEURO: alert, oriented, moves all extremities spontaneously. SKIN: warm, dry, intact. VASCULAR: 2+ PT pulses, warm and well-perfused. Laboratory values: Lab results within last 7 days (see chart for full results) Units 12/24/22 0634 12/23/22 1743 12/23/22 0629 HGB g/dL 7.4* 7.8* 7.5* HCT % 26.7* 26.9* 26.6* WBC K/uL 12.05* 12.18* 10.97* PLT K/uL 197 205 186 Lab results within last 7 days (see chart for full results) Units 12/24/22 0634 12/23/22 0629 12/22/22 0437 12/21/22 1132 12/21/22 0433 Sodium mmol/L 139 138 136 133* 133* Potassium mmol/L 3.5 3.2* 3.5 4.0 3.5 Chloride mmol/L 102 100 99 99 97* CO2 mmol/L 28 29 27 23 21* BUN mg/dL 7 13 20 27* 29* Creatinine mg/dL 0.7 0.9 1.0 1.6* 2.0* Glucose mg/dL 107 95 157* 153* 114 Calcium mg/dL 8.2* 8.1* 8.2* 7.9* 7.7* Phosphorus mg/dL 2.5 2.2* 3.3 3.0 3.4 Serum creatinine: 0.7 mg/dL 12/24/22 0634 Estimated creatinine clearance: 75 mL/min Lab results within last 7 days (see chart for full results) Units 12/21/22 0433 12/21/22 0125 12/20/22 1701 Lactate, Whole Blood mmol/L -- -- 1.9 Lactate mmol/L 1.1 1.6 -- IMAGING: CTA ABD/PELVIS Narrative: PROCEDURE INFORMATION: Exam: CTA Abdomen and Pelvis With Contrast Exam date and time: 12/20/2022 7:21 PM Age: 57 years old Clinical indication: Other: Anemia TECHNIQUE: Imaging protocol: Computed tomographic angiography of [...] prior 12 months: This patient has received 0 known CTs and 0 known cardiac nuclear medicine studies in the 12 months prior to the current study. COMPARISON: CT CHEST WO(Adult) 10/27/2021 3:03 PM FINDINGS: Lungs: Airspace opacities are seen in the bilateral lower lobes. Pleural spaces: Small left pleural effusion. Aorta: Atherosclerosis of the abdominal aorta and iliac arteries. No aneurysm. Celiac trunk and mesenteric arteries: No occlusion or significant stenosis. Renal arteries: No occlusion or significant stenosis. Right iliac arteries: No occlusion or significant stenosis. Left iliac arteries: No occlusion or significant stenosis. Liver: Liver demonstrate nodular contour secondary to cirrhosis. No focal mass. Gallbladder and bile ducts: Gallbladder is surgically absent. No bile duct obstruction. Pancreas: Mild peripancreatic inflammation and trace free fluid. No pancreatic duct dilatation or pseudocyst. Spleen: Unremarkable. No splenomegaly. Adrenal glands: Unremarkable. No mass. Kidneys and ureters: Congenital malrotation of the right kidney. No hydronephrosis or nephrolithiasis. Stomach and bowel: No GI bleed. No bowel obstruction. There is wall thickening involving the proximal ascending colon, descending and sigmoid colon. Appendix: No evidence of appendicitis. Intraperitoneal space: Small volume ascites. No free air. Lymph nodes: Few prominent nonenlarged peripancreatic lymph nodes. Few moderate appearing borderline enlarged left para-aortic lymph nodes. Urinary bladder: Unremarkable. No mass. Reproductive: Unremarkable as visualized. Bones/joints: No acute fracture. Soft tissues: Unremarkable. Impression: IMPRESSION: 1. No evidence for GI bleed. 2. Finding concerning for pancreatitis. No pancreatic duct dilatation or pseudocyst. Recommend correlation with labs. 3. Hepatic cirrhosis with ascites. 4. Wall thickening of the proximal ascending, descending and sigmoid colon which could be secondary to hypertensive portal colopathy. However, infectious versus inflammatory colitis cannot be excluded. 5. Nonenlarged peripancreatic and few borderline enlarged left para-aortic lymph nodes which could be reactive. THIS DOCUMENT HAS BEEN ELECTRONICALLY SIGNED BY MARK LEMUS MD XR CHEST 1 VIEW Narrative: PROCEDURE INFORMATION: Exam: XR Chest Exam date and time: 12/20/2022 5:17 PM Age: 57 years old Clinical indication: Other: Sepsis TECHNIQUE: Imaging protocol: Radiologic exam of the chest. Views: 1 view. COMPARISON: DX XR CHEST 2 VIEWS 05/17/2022 3:00 PM FINDINGS: Lungs: Hazy bibasilar opacities. Upper lung zones are clear. Pleural spaces: Small bilateral pleural effusions. No pneumothorax. Heart/Mediastinum: Unremarkable. No cardiomegaly. Bones/joints: Unremarkable. Impression: IMPRESSION: Hazy bibasilar airspace opacities secondary to infiltrate versus atelectasis with small bilateral pleural effusions. THIS DOCUMENT HAS BEEN ELECTRONICALLY SIGNED BY MARK LEMUS MD Assessment & Plan Principal Problem: Shock (HCC) Active Problems: Gastrointestinal hemorrhage Acute on chronic respiratory failure with hypoxia (HCC) Pleural effusion Acute pulmonary edema (HCC) Acute on chronic anemia Pain of upper abdomen Iron deficiency anemia due to chronic blood loss Resolved Problems: * No resolved hospital problems. * IMPRESSION AND PLAN: Ms. Blevins is a 57 year old female with PMHx significant for Pulmonary hypertension, Cirrhosis secondary to autoimmune hepatitis c/b esophageal varices, portal hypertension and ascites, Graves disease status post thyroidectomy c/b postop hypothyroidism, chronic anemia, SLE, Immunodeficiency, emphysema, COPD group C, GERD and tobacco use who presented with undifferentiated shock and acute on chronic anemi. Cuurently patient is HD stable and vitals are WNL. Shock, undifferentiated Resolved, Acute on chronic anemia, Hypokalemia, Hypomagnesemia, Hypocalcemia, Today labs significant for Hgb 8 up from 7.4 yesterday. Patient had bowel movement overnight that she described as diarrhea without noticing any hematochezia, melena or bright red blood per rectum. Patient BP dropping overnight getting to 87/44 likely 2/2 having 6 to 7 bowel movements a day and fluid loss, responded to fluids BP is 107/49 after giving bolus 250 mL isolyte. Electrolytes abnormality likely 2/2 diarrhea and increased frequency of bowel movements. - Continue Venofer 300 mg in NSS QD until 12/27/22 (Total 3 days) - Monitor Hgb daily - Restart subcut Heparin for DVT Ppx - Monitor vitals. - Monitor electrolytes and replenish as needed. Hx of cirrhosis 2/2 autoimmune hepatitis, Esophageal Candidiasis, Patient has a known Hx of cirrhosis secondary to autoimmune hepatitis c/b with prior esophageal varices, portal hypertension and ascites. Today labs significant for Albumin of 2.6, AST of 10, ALT of 8 and alk phos of 66. - D/C Rochephin 1g QD for sbp ppx as no variceal bleed during this admission - Continue Lactulose 30g TID, titrate 3 to 4 bm per day - Continue holding CALENDER LET OFF OPERATOR nadolol, Aldactone, Torsemide, in setting of soft BP. - Continue Fluconazole 200 mg QD Pulmonary Htn, Patient O2 today is 94% on 5L of O2. Overnight patient O2 was increased from 3L to 5L. No increasedSOB, increased work of breathing, or evidence of volume overload to clinically correlate. Will continue monitoring for now. Patient soft BP likely 2/2 recent re-initiation of tadalafil, will hold offwith starting Ambrisentan for now. - Continue guest experience captain tadalafil 40 mg QD - Continue holding CALENDER LET OFF OPERATOR Ambrisentan, will confirm with pulm. prior to restarting. - Get amb. O2 Neck pain, Chronic back pain, Neck pain likely musculoskeletal in nature, no nuchal rigidity - PT/OT - Continue guest experience captain tramadol, trazodone and gabapentin Chronic Conditions: - Hypothyroidism - continue guest experience captain levothyroxine - GERD - Continue omeprazole 20 mg QD MISC -Diet: Regular diet -Bowel Regimen: Lactulose 30g TID -Rehab: PT/OT--Ordered -Code Status: Full Code PHARMACOLOGIC VTE PROPHYLAXIS: This patient does not have an active medication from one of the medication groupers. CODE STATUS: Full Code EXPECTED DISCHARGE DATE: 12/26/2022 Patient plan was discussed with Edwina Thomas MD Please see attending attestation for any updates or additions to plan. Associated attestation - Edwina Thomas MD - 12/25/2022 7:47 PM EDT I attest that I have reviewed the student note and that the components of the history, the physicalexam, and the assessment and plan documented were performed in my presence with the student where Iverified the documentation and performed (or re-performed) the exam and medical decision making. I spent a total of 45 minutes coordinating, documenting, and providing care for this patient excluding time spent in the performance of separately billed services. * Codie Seals, Pharmacy Mine Equipment Design Engineer - 12/24/2022 8:59 PM EDT PHARMACY HOME MEDICATION VERIFICATION [facility] [place]-[address] [address] Name: Jazmín Blevins Location: [facility] [place] B727/A Date: 12/24/2022 Time: 8:52 PM Hospital Problem List: Patient Active Problem List Diagnosis Code Postoperative hypothyroidism E89.0 HISTORY OF TOBACCO USE Z87.891 Esophageal reflux K21.9 Serologic abnormality R89.4 Autoimmune hepatitis (HCC) K75.4 PPD positive, treated R76.11 Normocytic anemia D64.9 Gastrointestinal hemorrhage K92.2 Acute on chronic respiratory failure with hypoxia (HCC) J96.21 Controlled substance agreement signed Z79.899 Disordered sleep G47.9 MEDICATION USE AGREEMENT [id number] Systemic lupus erythematosus (HCC) M32.9 Esophageal varices [...] effusion J90 Acute pulmonary edema (HCC) J81.0 Acute on chronic anemia D64.9 Pain of upper abdomen R10.10 Iron deficiency anemia due to chronic blood loss D50.0 Medications: Note that completed medications (per the MAR) continue to display for 24 hours. Ordered meds to be given in the future also display. Current Facility-Administered Medications Medication Dose Route Frequency Provider [START ON 12/25/2022] fluticasone (Flonase) nasal inhaler 2 Chloride 2 Chloride Each Nostril Daily(AM) Hamzah Mcdonald MD Iron Sucrose (Venofer) 300 mg in NSS 250 mL ivpb 300 mg IV Piggyback Daily(AM) Edwina Thomas MD [START ON 12/25/2022] misc medication (don't administer before Rx verify) Does Not Apply Daily(AM) Hamzah Mcdonald MD [START ON 12/25/2022] Tadalafil tab 20 mg (Patient Supplied Medication) 40 mg Oral Daily(AM) MD Garima Lactulose (Constulose) oral soln 30 g 30 g Oral TID(AM/NOON/HS) Alvin Engel MD potassium and sodium phosphate (Phos-Nak) oral powder 1 Packet 1 Packet Oral BID(AM/PM) Alvin Engel MD Torsemide (Demadex) tab 40 mg 40 mg Oral Daily(AM) Alvin Engel MD Gabapentin (Neurontin) cap 600 mg 600 mg Oral HS Alvin Engel MD mycophenolate (Cellcept) tab 500 mg 500 mg Oral BID(AM/PM) Alvin Engel MD Albuterol Sulfate (Proventil) (2.5 MG/3ML) 0.083% inhalation solution 2.5 mg 2.5 mg Nebulizer Q4H PRN Alvin Engel MD cefTRIAXone in dextrose (Rocephin) IVPB 1 g 1 g IV Piggyback Q24H Alvin Engel MD chlorHEXIDINE (Periogard) 0.12 % oral rinse 15 mL 15 mL Oral mucosal membrane BID (0800,1999) MD Johnson Fluconazole (Diflucan) tab 200 mg 200 mg Oral Daily(AM) Alvin Engel MD fluticasone furoate-vilanterol (BREO ellipta) 200-25 MCG/ACT inhaler 1 Puff 1 Puff Inhalation Resp Daily Alvin Engel MD levothyroxine (Levoxyl) tab 150 mcg 150 mcg Oral Daily 0630 Alvin Engel MD Lidocaine (Aspercreme) 4 % patch 1 Patch 1 Patch Transdermal Daily(AM) Alvin Engel MD omeprazole (PriLOSEC) cap 20 mg 20 mg Oral Daily(AM) Alvin Engel MD ondansetron (Zofran) inj 4 mg 4 mg IV Push Q6H PRN Alvin Engel MD oxygen GAS Inhalation Oxygen Alvin Engel MD sodium chloride 0.9 % flush peripheral tahira 3 mL 3 mL IV Push Q8H Alvin Engel MD tap water enema 1 Enema 1 Enema Rectal PRN Alvin Engel MD traMADol (Ultram) tab 50 mg 50 mg Oral Q6H PRN Alvin Engel MD traZODone (Desyrel) tab 50 mg 50 mg Oral QHS Alvin Engel MD umeclidinium [place] (INCRUSE ellipta) 62.5 MCG/ACT inhaler 1 Puff 1 Puff Inhalation Resp Daily Alvin Engel MD Allergies: Dilaudid [hydromorphone hcl] and Environmental Medication to be verified: Tadalafil 20mg Quantity Received: 60 tablets Pharmacist verification: This medication has been physically verified by Codie Seals, Pharmacy Mine Equipment Design Engineer and Domitila Morgan PharmD as Tadalafil 20mg and the nurses may administer this medication to the patient as indicated by the orders written by the provider. Medication provided in closed bottle (exp. May 2024) Nursing Trust Clerk: Lianet Leo Pharmacist Recommendations/Notes: No changes necessary. Codie Seals Pharmacy Mine Equipment Design Engineer * Hamzah Mcdonald MD - 12/24/2022 9:59 AM EDT PROGRESS NOTE - Resident - Medicine [address] [address] Name: Jazmín Blevins Location: [facility] [place] B727/A Date: 12/24/2022 Time: 9:59 AM INTERVAL HISTORY AND SUBJECTIVE: 57-year-old female with complex past medical history who presented with undifferentiated shock and acute on chronic anemi. Patient seen and examined at bedside today. Reports no active complaints. Reports feeling better overall. No nausea, no vomiting , no diarrhea or constipation. Reports last bowel movement was yesterday. Does not endorse seeing any blood/dark stool. Pertinent ROS reviewed in HPI, otherwise negative. PHYSICAL EXAMINATION: Most Recent Vital Signs: BP: 117 mmHg/67 mmHg (12/24/22847) Pulse: 94 (12/24/22847) Temp: 36.78 C (12/24/22847) Resp: 18 (12/24/22847) SpO2: 95 % (12/24/22847) Vital Signs Last 24 Hours: Systolic BP: Most Recent Systolic BP Av.1 mmHg Min: 90 mmHg Max: 124 mmHg Temperature: Most Recent Temperature Av.6 C Min: 36.22 C Max: 37.22 C Pulse: Pulse Av.5 Min: 54 Max: 94 Respirations: Resp Av.3 Min: 8 Max: 21 SpO2: SpO2 Av.6 % Min: 90 % Max: 99 % Intake/Output Intake/Output Summary (Last 24 hours) at 12/24/2022 0959 Last data filed at 12/24/2022 0900 Gross per 24 hour Intake 2080 ml Output -- Net 2080 ml Weight: Patient Vitals for the past 72 hrs: Weight 12/24/22 0500 55.8 kg (123 lb 1 oz) 12/23/22 2118 55.8 kg (123 lb) 12/22/22 0800 53.1 kg (117 lb 1 oz) ; Body mass index is 19.86 kg/m. General: Well appearing, resting comfortably with no active complaints CV: Regular rate and rhythm, no murmur, rub, or gallop, no obvious JVD Lungs: No increased work of breathing. Clear to auscultation bilaterally Abdomen: Normoactive bowel sounds, non-distended, soft, mildly-tender, no palpable masses or organomegaly Extremities: No cyanosis, clubbing, or edema. Skin: Warm, dry, in-tact. No obvious rashes Neurologic: Awake, Alert, and Oriented x 3 Psych: Pleasant, Cooperative, Appropriate mood, Appropriate affect Labs/Imaging: Reviewed in Epic. ASSESSMENT AND PLAN OF CARE : Jazmín Blevins is a 57 year old female presenting with undifferentiated shock with acute on chronic anemia (Hb 5.1), s/p transfusion x 2, levophed for 2 days, now transferred to Medical floors for ongoing management. Principal Problem: Shock (HCC) POA: Unknown Active Problems: Gastrointestinal hemorrhage POA: Yes Acute on chronic respiratory failure with hypoxia (HCC) POA: Yes Pleural effusion POA: Unknown Acute pulmonary edema (HCC) POA: Unknown Acute on chronic anemia POA: Unknown Pain of upper abdomen POA: Unknown Iron deficiency anemia due to chronic blood loss POA: Unknown Resolved Problems: * No resolved hospital problems. * POA = Present On Admission Shock Acute on chronic anemia Hemoglobin currently stable, status post colonoscopy showing angiodysplastic lesions status post treatment with argon plasma coagulation, 3 mm single polyp resection and nonbleeding hemorrhoids. Given the chronic nature of her anemia it is likely that the angiodysplastic lesions were the causative factor, although the patient denies noticing melena or bright red blood per rectum if it was a slow chronic bleed it could have potentially gone unnoticed. Previous hemolytic anemia workup negative. Iron studies showing low ferritin and low iron stores. Ganzoni score 841 - Venofer 300 for 3 days. - Trend hemoglobin and hematocrit - AM labs - possibly resume subcut heparin tomorrow Esophageal Candidiasis Patient noted to have esophageal candidiasis on EGD, status post fluconazole therapy - continue with fluconazole therapy Pulmonary Htn Hx of pulmonary htn, baseline 2-3 L O2 at home, during hospital course requiring up to 6 L. Currently SpO2 95% at 3L - continue guest experience captain tadalafil 40 mg QD in AM - resume guest experience captain ambrisentan per [facility] reccs - c/w guest experience captain flonase, ellipta - Amb ox - Oxygen goal 91-95% Neck pain Chronic back pain Neck pain likely musculoskeletal in nature, no nuchal rigidity - PT/OT, - on guest experience captain home pain control meds - continue with Rocephin - SBP prophylaxis till 12/27 Chronic Conditions: Hypothyrodism - continue guest experience captain levothyroxine Chronic pain - c/w guest experience captain tramadol, trazodone and gabapentin Diet: Orders Placed This Encounter Procedures Regular Diet Additional Information: Consults: GASTROENTEROLOGY CONSULT IP ADULT PHYSICAL THERAPY CONSULT IP ADULT OCCUPATIONAL THERAPY CONSULT IP VTE Ppx: holding subcut heparin Bowel Regimen: on lactulose CODE STATUS: Full Code Discussion of adv directives occurred with - adult: Patient ANTICIPATED DISCHARGE: 2 days or more Plan has been discussed with the patient. Family will be updated periodically, as appropriate. Patient was discussed with Dr. Thomas during morning rounds. Hamzah Mcdonald MD Internal Medicine Resident, PGY1 Associated attestation - Edwina Thomas MD - 12/24/2022 7:35 PM EDT I saw and evaluated the patient 12/24/22. I have reviewed the trainee note and agree. I spent a total of 45 minutes coordinating, documenting, and providing care for this patient excluding time spent in the performance of separately billed services or time spent by another provider/QHP. * Alvin Engel MD - 12/23/2022 10:55 PM EDT TRANSFER RECEIVING NOTE - hospitalist [address] [address] Name: Jazmín Blevins Current Location: [facility] [place] B727/A HANDOFF COMMUNICATION: Sending patient service: [facility] Accepting service: Hospitalist Sending attending aware of patient and transfer: yes Receiving attending aware of patient and transfer: yes Name of receiving attending provider: Alvin Engel Patient care is being assumed by receiving service: when patient arrives in receiving unit Reason for transfer: Stable for floor SUBJECTIVE: 57-year-old female with complex past medical history who presented with undifferentiated shock and acute on chronic anemia. Initial hemoglobin 5.4 and patient was transfused 2 units of blood. She required low-dose Levophed for 2 days and was successfully weaned off after she was aggressively diuresed with IV Bumex. Patient underwent EGD which did not show any acute bleeding. Patient also underwent colonoscopy on 12/23 which showed arteriovenous malformations which were nonbleeding however patient underwent argon therapy. Hemoglobin has been stable over the last few days. Hemolytic anemia workup was unremarkable. CURRENT HOSPITAL MEDICATIONS: Note that completed medications (per the MAR) continue to display for 24 hours. Ordered medicationsto be given in the future also display. Current Facility-Administered Medications Medication Dose Route Frequency Provider [START ON 12/24/2022] Lactulose (Constulose) oral soln 30 g 30 g Oral TID(AM/NOON/HS) Alvin Engel MD potassium and sodium phosphate (Phos-Nak) oral powder 1 Packet 1 Packet Oral BID(AM/PM) Alvin Engel MD [START ON 12/24/2022] Torsemide (Demadex) tab 40 mg 40 mg Oral Daily(AM) Alvin Engel MD Gabapentin (Neurontin) cap 600 mg 600 mg Oral HS Alvin Engel MD mycophenolate (Cellcept) tab 500 mg 500 mg Oral BID(AM/PM) Alvin Engel MD Albuterol Sulfate (Proventil) (2.5 MG/3ML) 0.083% inhalation solution 2.5 mg 2.5 mg Nebulizer Q4H PRN Alvin Engel MD cefTRIAXone in dextrose (Rocephin) IVPB 1 g 1 g IV Piggyback Q24H Alvin Engel MD chlorHEXIDINE (Periogard) 0.12 % oral rinse 15 mL 15 mL Oral mucosal membrane BID (799,1999) MD Johnson Fluconazole (Diflucan) tab 200 mg 200 mg Oral Daily(AM) Alvin Engel MD fluticasone furoate-vilanterol (BREO ellipta) 200-25 MCG/ACT inhaler 1 Puff 1 Puff Inhalation Resp Daily Alvin Engel MD levothyroxine (Levoxyl) tab 150 mcg 150 mcg Oral Daily 629 Alvin Engel MD Lidocaine (Aspercreme) 4 % patch 1 Patch 1 Patch Transdermal Daily(AM) Alvin Engel MD omeprazole (PriLOSEC) cap 20 mg 20 mg Oral Daily(AM) Alvin Engel MD ondansetron (Zofran) inj 4 mg 4 mg IV Push Q6H PRN Alvin Engel MD oxygen GAS Inhalation Oxygen Alvin Engel MD sodium chloride 0.9 % flush peripheral [place] 3 mL 3 mL IV Push Q8H Alvin Engel MD tap water enema 1 Enema 1 Enema Rectal PRN Alvin Engel MD traMADol (Ultram) tab 50 mg 50 mg Oral Q6H PRN Alvin Engel MD traZODone (Desyrel) tab 50 mg 50 mg Oral QHS Alvin Engel MD umeclidinium [place] (INCRUSE ellipta) 62.5 MCG/ACT inhaler 1 Puff 1 Puff Inhalation Resp Daily Alvin Engel MD TRANSFER MEDICATION RECONCILIATION COMPLETED? yes REVIEW OF SYSTEMS: OBJECTIVE: Most Recent Vital Signs: BP: 104 mmHg/52 mmHg (12/23/222117) Pulse: 66 (12/23/222117) Temp: 36.61 C (12/23/222117) Resp: 16 (12/23/222117) SpO2: 93 % (12/23/222117) Vital Signs Last 24 Hours: Systolic BP: Most Recent Systolic BP Av.3 mmHg Min: 90 mmHg Max: 134 mmHg Temperature: Most Recent Temperature Av.3 C Min: 36 C Max: 36.83 C Pulse: Pulse Av.4 Min: 50 Max: 75 Respirations: Resp Av.6 Min: 8 Max: 24 SpO2: SpO2 Av.4 % Min: 90 % Max: 100 % Intake/Output Summary (Last 24 hours) at 12/23/20225 Last data filed at 12/23/2022 1700 Gross per 24 hour Intake 2240 ml Output -- Net 2240 ml Physical exam- General: Conscious, alert, cooperative and in no immediate distress HEENT: tongue: Moist Chest: On 6L NC satting 92% Heart: rhythm regular rate normal Abdomen: soft, nondistended, no rebound or guarding, mild generalized tenderness Extremities: Warm, well perfused, edema: none Neuro: alert, oriented to person, place, and time, Glascow Coma Score 15 LABS: Labs reviewed as indicated below: Hb- 7.8, WBC- 12.18 IMAGING: Colonoscopy- mpression: - Multiple non-bleeding colonic angiodysplastic lesions. Treated with argonplasma coagulation (APC). - One 3 mm polyp in the cecum, removed with a cold biopsy forceps. Resected and retrieved. - Previous stent in the transverse colon. - Erythematous mucosa in the ascending colon. - Rectal varices. - Non-bleeding internal hemorrhoids. - Hemorrhoids found on perianal exam. IMPRESSION and PLAN: Principal Problem: Shock (HCC) POA: Unknown Active Problems: Gastrointestinal hemorrhage POA: Yes Acute on chronic respiratory failure with hypoxia (HCC) POA: Yes Pleural effusion POA: Unknown Acute pulmonary edema (HCC) POA: Unknown Acute on chronic anemia POA: Unknown Pain of upper abdomen POA: Unknown Iron deficiency anemia due to chronic blood loss POA: Unknown POA = Present On Admission Assessment and plan- GI bleed- hemoglobin stable low. Patient is status post colonoscopy which showed arteriovenous malformations which were nonbleeding but were taken care by argon therapy. Will hold heparin subQ for now. Will continue to monitor hemoglobin. On Rocephin for SBP prophylaxis, stop date 12/27. On Diflucan for esophageal candidiasis. Chronic hypoxemic respiratory failure-secondary to COPD and pulmonary hypertension. Continue with oxygen support. Pulmonary hypertension meds have been held currently. * YOGESH Ballard - 12/23/2022 8:31 PM EDT BRIEF TRANSFER OUT OF INTENSIVE CARE NOTE - CRITICAL CARE MEDICINE [facility] [place]-[address] [address] Name: Jazmín Blevins Current Location: [facility] HFAM/Endo Primary ICU Problem: Undifferentiated shock, acute on chronic anemia ICU Course/Complications: 57-year-old female with complex past medical history who presented with undifferentiated shock and acute on chronic anemia. Initial hemoglobin 5.4 and patient was transfused2 units of blood. She required low-dose Levophed for 2 days and was successfully weaned off after she was aggressively diuresed with IV Bumex. Patient underwent EGD which did not show any acute bleeding. Patient also underwent colonoscopy on 12/23 which showed arteriovenous malformations which were nonbleeding however patient underwent argon therapy. Hemoglobin has been stable over the last few days. Hemolytic anemia workup was unremarkable. Patient is stable to transfer to the floor. Recommend to continue with weaning oxygen to home baseline of 2-3L and resume home pulm HTN medications. Delirium: No Mechanical Ventilation: Intubated: No Major Procedures: EGD 12/22 Colonoscopy 12/23 Medications: Medication changes: None Antibiotics: No Pending ICU Issues: Active issues currently being followed or monitored at time of transfer out of ICU: Monitor Hgb andtransfuse if less than 7 Wean to baseline oxygen of 2-3L NC Consults following: GI Central Lines/Chest Tubes/PICC/IUBC: Remaining in place: No Family Meeting/Goals of Care: Full Code Family meeting summary/decision makers: Bipin Follow Up: Needs home tadalfil resumed tomorrow * Mary Dickerson MD - 12/23/2022 8:57 AM EDT CCM - PROGRESS NOTE [facility] [place]-[address] [address] Name: Jazmín Blevins Location: [facility] HFAM/Endo Date: 12/23/2022 Date of admission: 12/21/2022 Hospital length of stay: 2 days PATIENT DESCRIPTION: The patient is a 57 year old female with PMHx signficant for cirrhosis secondary to autoimmune hepatitis, esophageal varices, portal hypertensive gastropathy, ascites, SLE on cellcept, COPD on home oxygen, pulmonary hypertension, Graves status post thyroidectomy, hypothyroidism, and Raynaud's who was transferred from outside facility secondary to shock, NAZARIO and acute on chronic anemia. Patient was hypotensive with a blood pressure of 70/40 and hemoglobin of 5.1. Outside imaging showing chest x-ray with bilateral basilar opacities and small pleural effusions. CTA abdomen pelvis negative for acute bleeding. Patient was given 1.6 L of IV fluids and started on antibiotics. She was also transfused 2 units of packed red blood cells. Patient was transferred to [facility] for further management. Subjective INTERIM HISTORY / SUBJECTIVE: No events overnight Patient evaluated at bedside this morning. She tells me that she was able to complete bowel prep. Denies any nausea, vomiting and/or abdominal pain. Hilario catheter was removed last evening and patient has had no issues with urination. Plan for colonoscopy this morning. Came off pressors overnight. Objective CONSTITUTIONAL DATA / OBJECTIVE: Vital Signs (Most Recent): Pulse: 56 (12/23/22 1045) BP: 118/73 (12/23/22 1045) Resp: 17 (12/23/22 1032) Temp: 36.3 C (97.3 F) (12/23/22 1032) SpO2: 95 % (12/23/22 1045) Vital Signs (Last 24 Hours): Pulse Av.5 Min: 50 Max: 74 No data recorded Most Recent Systolic BP Av.9 mmHg Min: 95 mmHg Max: 134 mmHg Most Recent Diastolic BP Av.8 mmHg Min: 47 mmHg Max: 91 mmHg Resp Av.5 Min: 9 Max: 24 Most Recent Temperature Av.3 C Min: 36 C Max: 36.61 C SpO2 Av.8 % Min: 78 % Max: 100 % Ventilatory Support: HFNC: O2 flow rate: 6 L/MIN (12/23/22 1032) CPAP/EPAP: IPAP: Intake & Output Summary (Last 24 hours): Intake/Output Summary (Last 24 hours) at 12/23/2022 1220 Last data filed at 12/22/2022 2300 Gross per 24 hour Intake 2037.5 ml Output 1305 ml Net 732.5 ml Net IO Since Admission: 147.5 mL [12/21/22 0604] Height & Weight: Height: 167.6 cm (5' 6") (12/21/22 0100) Weight: 53.1 kg (117 lb 1 oz) (12/22/22 0800) Weight change: -5.6 kg (-12 lb 5.5 oz) Body mass index is 18.89 kg/m. Physical Examination: General: Patient in no apparent distress HEENT: normocephalic, atraumatic Heart: bradycardic, S1 and S2 present; no murmurs, rubs or gallops. Pulmonary: Bibasilar crackles,On 6L NC satting 92-100% Abdomen: Soft, non-tender, non-distended. Normal bowel sounds and no rebound or guarding. MSK: Gross motor function intact Extremities: No lower extremity edema Skin: [place], warm, no wounds or lesions present. Neuro: AAOx3. No gross motor or sensory deficits. Psych: Appropriate mood and affect Peripheral Line Left;Lower 22 Gauge (Active) Number of days: 1 Peripheral Line Left;Upper Arm 22 Gauge (Active) Number of days: 0 Laboratory Values: reviewed. -- Brief labs below include the 7 most recent results over the past week. Blood Gas: Lab results within last 7 days (see chart for full results) Units 12/20/22 1701 pH, Venous units 7.419 pCO2, Venous mmHg 41.5 pO2, Venous mmHg 13.2* Base Excess, Venous mmol/L 2.2* Chemistry Panel: Lab results within last 7 days (see chart for full results) Units 12/23/22 0629 12/22/22 0437 12/21/22 11312/21/22 0433 12/21/22 0125 12/20/22 1701 Sodium mmol/L 138 136 133* 133* 132* 130* Potassium mmol/L 3.2* 3.5 4.0 3.5 3.0* 3.1* Chloride mmol/L 100 99 99 97* 97* 93* CO2 mmol/L 29 27 23 21* 22 25 BUN mg/dL 13 20 27* 29* 31* 35* Creatinine mg/dL 0.9 1.0 1.6* 2.0* 2.1* 2.6* Estimated Glomerular Filtration Rate mL/min 80 63 38* 29* 28* 21* Glucose mg/dL 95 157* 153* 114 118 130* Calcium mg/dL 8.1* 8.2* 7.9* 7.7* 7.9* 8.4 Magnesium mg/dL 1.7 2.0 2.9* 1.9 1.6 -- Phosphorus mg/dL 2.2* 3.3 3.0 3.4 3.1 -- Anion Gap mmol/L 9 10 11 15 13 12 Complete Blood Count: Lab results within last 7 days (see chart for full results) Units 12/23/22 0629 12/22/22 1823 12/22/22 0437 12/21/22202012/21/22 11312/21/22 04312/21/22 0241 WBC K/uL 10.97* 9.67 9.42 9.27 10.13 10.82* 10.50 HGB g/dL 7.5* 7.9* 7.8* 8.4* 7.5* 7.2* 7.6* HCT % 26.6* 27.2* 27.7* 28.8* 27.0* 25.3* 26.4* PLT K/uL 186 191 218 234 215 192 197 MCV fL 77.3 75.3 75.9 74.6 75.4 74.6 74.4 Cardiac Studies: Lab results within last 7 days (see chart for full results) Units 12/21/22 0125 12/20/22 1701 Troponin T, High Sensitivity ng/L 16* 15* CK-MB ng/mL 1.6 -- BNP, NT-Pro pg/mL 2,671* -- Coagulation Studies: Lab results within last 7 days (see chart for full results) Units 12/21/22 0125 12/20/22 1701 Prothrombin Time seconds 15.8* 16.2* INR 1.2 1.3* aPTT seconds -- 29 Liver Function Panel: Lab results within last 7 days (see chart for full results) Units 12/23/22 0629 12/22/22 0437 12/21/22 04312/20/22 1701 Albumin g/dL 2.7* 3.0* 3.0* 3.0* Protein g/dL 5.8* 6.3 6.0 6.6 Bilirubin, Total mg/dL 0.5 0.7 2.0* 0.5 Bilirubin, Direct mg/dL <0.2 0.3 0.4* 0.2 AST U/L 12 10 13 12 ALT U/L 8* 8* 10 7* Alkaline Phosphatase U/L 65 71 69 74 Infectious Studies: Lab results within last 7 days (see chart for full results) Units 12/21/22 04312/21/22 0125 12/20/22 1701 Lactate, Whole Blood mmol/L -- -- 1.9 Lactate mmol/L 1.1 1.6 -- Procalcitonin ng/mL -- -- 0.18* Cultures: reviewed. Recent Cultures (2 Weeks) 12/21/2022 12/20/2022 6:15 AM 5:01 PM BLOOD CULTURE GROWTH -- No growth to date No growth to date QUANT URINE CULTURE GROWTH No significant growth -- Radiographic Studies: reviewed. CTA ABD/PELVIS Result Date: 12/20/2022 IMPRESSION: 1. No evidence for GI bleed. 2. Finding concerning for pancreatitis. No pancreatic ductdilatation or pseudocyst. Recommend correlation with labs. 3. Hepatic cirrhosis with ascites. 4. Wall thickening of the proximal ascending, descending and sigmoid colon which could be secondary to hypertensive portal colopathy. However, infectious versus inflammatory colitis cannot be excluded. 5. Nonenlarged peripancreatic and few borderline enlarged left para-aortic lymph nodes which could be reactive. THIS DOCUMENT HAS BEEN ELECTRONICALLY SIGNED BY MARK LEMUS MD XR CHEST 1 VIEW Result Date: 12/20/2022 IMPRESSION: Hazy bibasilar airspace opacities secondary to infiltrate versus atelectasis with smallbilateral pleural effusions. THIS DOCUMENT HAS BEEN ELECTRONICALLY SIGNED BY MARK LEMUS MD Assessment & Plan Principal Problem: Shock (HCC) POA: Unknown Active Problems: Gastrointestinal hemorrhage POA: Yes Overview: colonoscopy Acute on chronic respiratory failure with hypoxia (HCC) POA: Yes Pleural effusion POA: Unknown Acute pulmonary edema (HCC) POA: Unknown Acute on chronic anemia POA: Unknown Pain of upper abdomen POA: Unknown Iron deficiency anemia due to chronic blood loss POA: Unknown POA = Present On Admission NEUROLOGICAL: Chronic pain RASS Goal: 0 RASS: 0 Alert and Calm (12/23/22 08) Pain Control: home tramadol prn, lidocaine patch Current Pain Score: 0 (no pain) (12/23/22 1032) Delirium/Confusion Assessment: CAM-ICU Positive?: No (12/23/22799) Resume home tramadol, trazodone Resume home gabapentin PULMONARY / RESPIRATORY: Acute on chronic hypoxic respiratory failure Pulmonary edema Bilateral pleural effusions Pulmonary hypertension, group 1 Smoker Patient on 2-3 L of oxygen at home however tells me she does not reliably where, here patient requiring 4-6 L of oxygen and satting 92-100%, we will work on weaning down to patient's home O2 requirements Has had intermittent desat with movement but recovers quickly Breo and incruse 1 puff daily Holding home Ambrisentan Resume home tadalafil after returns from Endo suite Resume home torsemide Holding home spironolactone CARDIOVASCULAR: Undifferentiated shock, possibly cardiogenic Elevated BNP Echo 04/2022 showing an EF of 60%, with improvement in pulm HTN Vasopressors: Wean as able for SBP goal of 90 NORepinephrine Dose (mcg/min): 0 mcg/min (12/22/22 1900) TTE significant for EF of 55% with mildly reduced RV systolic function and moderate pulmonary hypertension GASTROINTESTINAL / HEPATOBILIARY: Possible GI bleed Candidal esophagitis Cirrhosis secondary to autoimmune hepatitis Esophageal varices Portal hypertensive gastropathy Ascites Last Bowel Movement: 12/23/22 (12/23/22 09) Stool Description: Medium;Liquid;Brown;Green (12/23/22 09) Bowel Regimen: Bowel prep in preparation for colonoscopy Stress Ulcer Prophylaxis: Proton Pump Inhibitor.. Diet / Nutrition: Clear liquid diet, NPO after midnight GI consult, recommendations pending-- plans to perform colonoscopy tomorrow; patient repeating bowel prep as not tolerate and overnight due to nausea and vomiting Hold home nadolol, Aldactone, lactulose, torsemide Rocephin 1g daily x7 days for SBP prophylaxis, stop date 12/27 Patient receiving fluconazole treatment for candidal esophagitis Octreotide and IV PPI was discontinued We will continue with home omeprazole 20 mg daily Will continue home lactulose to help with bowel prep RENAL / METABOLIC / FLUIDS: Acute kidney injury Electrolyte derangements Admission Cr 2.6 Baseline Cr 0.9. Hyponatremia likely secondary to volume overload, we will monitor closely and should improve with diuresis Most Recent: Serum creatinine: 0.9 mg/dL 12/23/22 0629 Estimated creatinine clearance: 57.8 mL/min Monitor electrolytes at least daily. Replete electrolytes as indicated. Avoid Nephrotoxins including NSAIDS and IV contrast. Strict monitoring of fluid intake and output. Renal dosing and medication considerations adjusted for glomerular filtration rate. Daily weights. Hilario removed 12/22 Potassium and phosphorus repleted 12/23 INFECTIOUS DISEASES: Esophageal candidiasis We will continue with SBP prophylaxis in setting of patient's prior history and concern for possible GI bleed P.o. fluconazole 2 mg daily for 14 days Antibiotic Regimen: Rocephin 1 g x 7 days End date of antibiotics: 12/27. End date for fluconazole 01/04 ENDOCRINE: Postop hypothyroidism History of Graves disease status post thyroidectomy Continue home levothyroxine Blood Glucose Monitoring (BGM) Goal: 140-180. Controlled HEMATOLOGIC: Acute on chronic anemia Haptoglobin, LDH, Cynthia test were within normal limits We will plan to monitor hemoglobin levels for now Follow-up colonoscopy results from 12/23, if no evidence of bleeding we will resume patient's home iron and recommend outpatient hematology evaluation for further workup Baseline hemoglobin 8-11?; hemoglobin today 7.5 VTE/DVT Prophylaxis: SubQ heparin Holding home iron Monitor Hgb closely and transfuse if <7 MUSCULOSKELETAL/ P.T / O.T. / MOBILITY: SLE Neck pain Chronic back pain Neck pain likely musculoskeletal in nature, no nuchal rigidity PT/OT Pain meds prn, lidocaine patch Continue home CellCept DERMATOLOGIC / WOUND CARE: Raynaud's Wound care PRN LINES / DRAINS / TUBES: LINES ALL Duration Peripheral Line Left;Lower 22 Gauge <1 day Peripheral Line Left;Upper Arm 22 Gauge <1 day List of services consulted/following: GASTROENTEROLOGY CONSULT IP ADULT PHYSICAL THERAPY CONSULT IP ADULT OCCUPATIONAL THERAPY CONSULT IP GLOBAL ISSUES: Code Status: Full Code Analgesia: pneumatic compression devices alone due to chemoprophylaxis contraindication Sedation: N/A Delirium/Confusion Assessment Method for ICU (CAM-ICU): CAM-ICU negative HOB Elevation: greater than 30 degrees Nutrition: enteral, advancing to goal DVT Prophylaxis: Subcutaneous heparin Stress Ulcer Prophylaxis: PPI therapy for other indication Glycemic Control: controlled - not in protocol Oral hygiene every four hours Chlorhexidine mouth rinse every twelve hours Central Line Necessity Reviewed: N/A Hilario: reviewed and needed Disposition: Transfer out of the ICU to [facility] Patient's decisional capacity: has capacity to make decisions Communication with Patient/Family: No meeting held. was updated over the telephone. All questions answered. He was grateful for telephone call. Goals of Care: Weaned to home O2 requirements, control chronic pain Patient was discussed with attending physician, DO Mary Davenport MD Critical Care Medicine Fellow - PGY4 This chart was completed in part utilizing [employer] Speech Voice Recognition Software. Grammatical errors, random word insertions, pronoun errors, and incomplete sentences are an occasional consequence of this system due to software limitations, ambient noise, and hardware issues. Any formal questions or concerns about the content, text, or information contained within the body of this dictation should be directly addressed to the provider for clarification. Associated attestation - Andie Chavis DO - 12/23/2022 12:26 PM EDT [facility] STAFF NOTE: I saw and evaluated the patient today. I have reviewed the trainee note and agree. Principal Problem: Shock (HCC) POA: Unknown Active Problems: Gastrointestinal hemorrhage POA: Yes Overview: colonoscopy Acute on chronic respiratory failure with hypoxia (HCC) POA: Yes Pleural effusion POA: Unknown Acute pulmonary edema (HCC) POA: Unknown Acute on chronic anemia POA: Unknown Pain of upper abdomen POA: Unknown Iron deficiency anemia due to chronic blood loss POA: Unknown POA = Present On Admission In summary, Jazmín Blevins is a 57 year old female with PMH significant for autoimmune hepatitis, cirrhosis, esophageal varices, PH G, SLE, COPD, chronic hypoxemic respiratory failure, pulmonary hypertension on ambrisentan and tadalafil, Graves disease, hypothyroidism, Raynaud syndrome, and active tobacco use who was admitted to [facility] on 12/21/2022 with undifferentiated shock. Initial hemoglobin upon arrival was 5.1. The patient was initiated on vasopressors. Concern was for chronic GI bleed leading to anemia and also decompensated pulmonary hypertension. The patient wastransfused 2 units PRBCs. The patient was admitted to the ICU for further care. Patient seen and examined. No acute overnight events. Off vasopressors. Remains HD stable. Pt has not required additional pRBC transfusions. Hgb stable. Planning for colonoscopy today. Resume CALENDER LET OFF OPERATOR diuretics post-procedure. Will also slowly re-introduce CALENDER LET OFF OPERATOR PH medications starting with tadalafil (or sildenafil if pt does not have tadalafil on hand). Continue IV ceftriaxone for SBP prophylaxis. Continue supportive care. Pt is stable to be transferred to Med Surg. * Naomie Magallanes MD - 12/23/2022 7:31 AM EDT PROGRESS NOTE - Gastroenterology Service [facility] [place]-[address] [address] Name: Jazmín Blevins Location: [facility] [id number] Date: 12/23/2022 Time: 7:31 AM SUBJECTIVE: The patient was seen and examined, chart reviewed. No acute events overnight. Was able to be weaned off of Norepinephrine last night. Hemoglobin has remained stable Tolerated bowel prep well. ROS: ROS per HPI, all other systems negative. OBJECTIVE: Vital Signs Last 24 Hours: Systolic BP: Most Recent Systolic BP Av.3 mmHg Min: 95 mmHg Max: 132 mmHg Temperature: Most Recent Temperature Av.4 C Min: 36 C Max: 36.78 C Pulse: Pulse Av.2 Min: 50 Max: 74 Respirations: Resp Av.1 Min: 9 Max: 24 SpO2: SpO2 Av % Min: 78 % Max: 100 % Constitutional: no acute distress, laying in bed comfortably, awake and talking HEENT: No conjunctival pallor, sclera anicteric. CV: Heart is regular without murmur, rub or gallop. Chest: Clear to percussion and auscultation. GI: Abdomen is soft, non distended, normoactive bowel sounds in all four quadrants Extremities: No lower extremity edema Neurology: Awake and alert. Oriented to person, place, and time. LABS: reviewed MELD 3.0: 10 at 12/23/2022 6:29 AM Calculated from: Serum Creatinine: 0.9 mg/dL (Using min of 1 mg/dL) at 12/23/2022 6:29 AM Serum Sodium: 138 mmol/L (Using max of 137 mmol/L) at 12/23/2022 6:29 AM Total Bilirubin: 0.5 mg/dL (Using min of 1 mg/dL) at 12/23/2022 6:29 AM Serum Albumin: 2.7 g/dL at 12/23/2022 6:29 AM INR(ratio): 1.2 at 12/21/2022 1:25 AM Age at listing (hypothetical): 57 years Sex: Female at 12/23/2022 6:29 AM Lab results within last 7 days (see chart for full results) Units 12/23/22 0629 12/22/22 1823 12/22/22 0437 12/21/222020 HGB g/dL 7.5* 7.9* 7.8* 8.4* IMAGING: no new imaging studies Endoscopy 12/21/22 - Esophageal plaques were found, consistent [...] severe acute anemia found on this endoscopy. IMPRESSION: Jazmín Blevins is a(n) 57 year old female with pmhx of Bx proven AIH / Compensated Cirrhosis MELD 11 / CPT A (G1EV, 2022, on nadalol, PHG), chronic COPD, tobacco user, pulmonary hypertension, SLE, hypothyroidism presenting from [facility] for evaluation of acute blood loss anemia (s/p 2 units PRBCs), hypotensive shock and NAZARIO. She is now s/p upper endoscopy 12/21 which demonstrated small EV, LA grade A esophagitis, but no stigmata of bleeding to explain severe anemia. Suspect small bowel or large bowel source (AVM, Dieulafoy, diverticular bleeding). Otherwise remains hemodynamically stable with stable Hb (7's) and no longer requiring pressors. RECOMMENDATIONS/PLAN: - Plan for colonoscopy today, keep patient NPO - Continue PPI daily - Continue Fluconazole for candidiasis x 14 days I have discussed the case with my attending, Dr. Magallanes I saw and evaluated the patient today. I have reviewed the trainee note and agree. * Naomie Magallanes MD - 12/22/2022 12:56 PM EDT PROGRESS NOTE - Gastroenterology Service [facility] [place]-[address] [address] Name: Jazmín Blevins Location: [facility] A548/[id number] Date: 12/22/2022 Time: 12:56 PM SUBJECTIVE: The patient was seen and examined, chart reviewed. No acute events overnight. Pressor requires have decreased down to 1 mcg/kg/hour Her Hemoglobin remains stable and no further transfusion has been required Patient underwent bowel prep yesterday but has had only one bowel movement. States that she was notreally able to tolerate oral prep. Has no abdominal pain, tachycardia, dizziness or lightheadedness. ROS: ROS per HPI, all other systems negative. OBJECTIVE: Vital Signs Last 24 Hours: Systolic BP: Most Recent Systolic BP Av.6 mmHg Min: 82 mmHg Max: 115 mmHg Temperature: Most Recent Temperature Av.7 C Min: 36.28 C Max: 37.11 C Pulse: Pulse Av.5 Min: 50 Max: 70 Respirations: Resp Av.5 Min: 4 Max: 20 SpO2: SpO2 Av % Min: 88 % Max: 100 % Constitutional: No acute distress. Laying in bed, resting comfortably HEENT: No conjunctival pallor, sclera anicteric. CV: Heart is regular without murmur, rub or gallop. Chest: Clear to percussion and auscultation. GI: abdomen is soft, non distended, non tender exam: rectal with posting specialist - bright red blood noted at rectum, however dark brown stool with finger sweep Extremities: No edema. Neurology: Awake and alert. Oriented to person, place, and time. No asterixis present. LABS: Labs reviewed as indicated below: MELD 3.0: 11 at 12/22/2022 4:37 AM Calculated from: Serum Creatinine: 1.0 mg/dL at 12/22/2022 4:37 AM Serum Sodium: 136 mmol/L at 12/22/2022 4:37 AM Total Bilirubin: 0.7 mg/dL (Using min of 1 mg/dL) at 12/22/2022 4:37 AM Serum Albumin: 3.0 g/dL at 12/22/2022 4:37 AM INR(ratio): 1.2 at 12/21/2022 1:25 AM Age at listing (hypothetical): 57 years Sex: Female at 12/22/2022 4:37 AM IMAGING: no new imaging studies Endoscopy 12/21/22 - Esophageal plaques were found, consistent [...] severe acute anemia found on this endoscopy. IMPRESSION: Jazmín Blevins is a(n) 57 year old female with pmhx of Bx proven AIH / Compensated Cirrhosis MELD 11 / CPT A (G1EV, 2022, on nadalol, PHG), chronic COPD, tobacco user, pulmonary hypertension, SLE, hypothyroidism presenting from [facility] for evaluation of acute blood loss anemia (s/p 2 units PRBCs), hypotensive shock and NAZARIO. Her pressor requirements have decreased and her hemoglobin remains >7 in the last 24 hours. She is now s/p upper endoscopy 12/21 which demonstrated small EV, LA grade A esophagitis, but no stigmataof bleeding to explain severe anemia. Suspect small bowel or large bowel source (AVM, Dieulafoy, diverticular bleeding) Prep has not been sufficient and will likely need 2 day prep prior to colonoscopy tomorrow. Discussed case with primary team. RECOMMENDATIONS/PLAN: - Continue CLD today - Keep patient NPO for procedure after 2400, plan for colonoscopy 12/23 - Trend CBC, transfuse if Hb <7 - Continue PPI daily - Continue Fluconazole for candidiasis x 14 days - Trend MELD labs daily I have discussed the case with my attending, Dr. Magallanes I saw and evaluated the patient today. I have reviewed the trainee note and agree. * Mary Dickerson MD - 12/22/2022 7:19 AM EDT CCM - PROGRESS NOTE [facility] [place]-[address] [address] Name: Jazmín Blevins Location: [facility] [place] [id number] Date: 12/22/2022 Date of admission: 12/21/2022 Hospital length of stay: 1 days PATIENT DESCRIPTION: The patient is a 57 year old female with PMHx signficant for cirrhosis secondary to autoimmune hepatitis, esophageal varices, portal hypertensive gastropathy, ascites, SLE on cellcept, COPD on home oxygen, pulmonary hypertension, Graves status post thyroidectomy, hypothyroidism, and Raynaud's who was transferred from outside facility secondary to shock, NAZARIO and acute on chronic anemia. Patient was hypotensive with a blood pressure of 70/40 and hemoglobin of 5.1. Outside imaging showing chest x-ray with bilateral basilar opacities and small pleural effusions. CTA abdomen pelvis negative for acute bleeding. Patient was given 1.6 L of IV fluids and started on antibiotics. She was also transfused 2 units of packed red blood cells. Patient was transferred to [facility] [place] for further management. Subjective INTERIM HISTORY / SUBJECTIVE: Patient reports not sleeping well overnight. Did not tolerate bowel prep and had multiple episodes of nausea and vomiting. General surgery planning for colonoscopy possibly tomorrow and will repeat colon prep today. Objective CONSTITUTIONAL DATA / OBJECTIVE: Vital Signs (Most Recent): Pulse: 53 (12/22/22614) BP: 101/56 (12/22/22614) Resp: 12 (12/22/22614) Temp: 36.3 C (97.3 F) (12/22/22599) SpO2: 95 % (12/22/22614) Vital Signs (Last 24 Hours): Pulse Av.1 Min: 50 Max: 70 No data recorded Most Recent Systolic BP Av.3 mmHg Min: 82 mmHg Max: 115 mmHg Most Recent Diastolic BP Av.6 mmHg Min: 42 mmHg Max: 74 mmHg Resp Av.4 Min: 4 Max: 20 Most Recent Temperature Av.7 C Min: 36.28 C Max: 37.11 C SpO2 Av.4 % Min: 88 % Max: 100 % Ventilatory Support: HFNC: O2 flow rate: 3 L/MIN (12/22/22699) CPAP/EPAP: IPAP: Intake & Output Summary (Last 24 hours): Intake/Output Summary (Last 24 hours) at 12/22/2022718 Last data filed at 12/22/2022699 Gross per 24 hour Intake 1315.76 ml Output 4095 ml Net -2779.24 ml Net IO Since Admission: 147.5 mL [12/21/22603] Height & Weight: Height: 167.6 cm (5' 6") (12/21/22 0100) Weight: 58.7 kg (129 lb 6.6 oz) (12/21/22 08) Weight change: 1 kg (2 lb 3.3 oz) Body mass index is 20.89 kg/m. Physical Examination: General: Patient in no apparent distress HEENT: normocephalic, atraumatic Heart: bradycardic, S1 and S2 present; no murmurs, rubs or gallops. Pulmonary: Bibasilar crackles,On 4L NC satting 98% Abdomen: Soft, non-tender, non-distended. Normal bowel sounds and no rebound or guarding. MSK: Gross motor function intact Extremities: No lower extremity edema Skin: [place]itt[place]ey, warm, no wounds or lesions present. Neuro: AAOx3. No gross motor or sensory deficits. Psych: Appropriate mood and affect Urethral Catheter Regular catheter (Active) Number of days: 1 Peripheral Line Left Antecubital 18 Gauge (Active) Number of days: 2 Peripheral Line Left;Lower;Posterior Arm 20 Gauge (Active) Number of days: 2 Laboratory Values: reviewed. -- Brief labs below include the 7 most recent results over the past week. Blood Gas: Lab results within last 7 days (see chart for full results) Units 12/20/22 1701 pH, Venous units 7.419 pCO2, Venous mmHg 41.5 pO2, Venous mmHg 13.2* Base Excess, Venous mmol/L 2.2* Chemistry Panel: Lab results within last 7 days (see chart for full results) Units 12/22/22 0437 12/21/22 1132 12/21/22 0433 12/21/22 0125 12/20/22 1701 Sodium mmol/L 136 133* 133* 132* 130* Potassium mmol/L 3.5 4.0 3.5 3.0* 3.1* Chloride mmol/L 99 99 97* 97* 93* CO2 mmol/L 27 23 21* 22 25 BUN mg/dL 20 27* 29* 31* 35* Creatinine mg/dL 1.0 1.6* 2.0* 2.1* 2.6* Estimated Glomerular Filtration Rate mL/min 63 38* 29* 28* 21* Glucose mg/dL 157* 153* 114 118 130* Calcium mg/dL 8.2* 7.9* 7.7* 7.9* 8.4 Magnesium mg/dL 2.0 2.9* 1.9 1.6 -- Phosphorus mg/dL 3.3 3.0 3.4 3.1 -- Anion Gap mmol/L 10 11 15 13 12 Complete Blood Count: Lab results within last 7 days (see chart for full results) Units 12/22/22 0437 12/21/22 20212/21/22 1132 12/21/22 0433 12/21/22 0241 12/20/22 1701 WBC K/uL 9.42 9.27 10.13 10.82* 10.50 10.97* HGB g/dL 7.8* 8.4* 7.5* 7.2* 7.6* 5.1* HCT % 27.7* 28.8* 27.0* 25.3* 26.4* 18.2* PLT K/uL 218 234 215 192 197 231 MCV fL 75.9 74.6 75.4 74.6 74.4 68.2 Cardiac Studies: Lab results within last 7 days (see chart for full results) Units 12/21/22 0125 12/20/22 1701 Troponin T, High Sensitivity ng/L 16* 15* CK-MB ng/mL 1.6 -- BNP, NT-Pro pg/mL 2,671* -- Coagulation Studies: Lab results within last 7 days (see chart for full results) Units 12/21/22 0125 12/20/22 1701 Prothrombin Time seconds 15.8* 16.2* INR 1.2 1.3* aPTT seconds -- 29 Liver Function Panel: Lab results within last 7 days (see chart for full results) Units 12/22/22 0437 12/21/22 0433 12/20/22 1701 Albumin g/dL 3.0* 3.0* 3.0* Protein g/dL 6.3 6.0 6.6 Bilirubin, Total mg/dL 0.7 2.0* 0.5 Bilirubin, Direct mg/dL 0.3 0.4* 0.2 AST U/L 10 13 12 ALT U/L 8* 10 7* Alkaline Phosphatase U/L 71 69 74 Infectious Studies: Lab results within last 7 days (see chart for full results) Units 12/21/22 0433 12/21/22 0125 12/20/22 1701 Lactate, Whole Blood mmol/L -- -- 1.9 Lactate mmol/L 1.1 1.6 -- Procalcitonin ng/mL -- -- 0.18* Cultures: reviewed. Recent Cultures (2 Weeks) 12/20/2022 5:01 PM BLOOD CULTURE GROWTH No growth to date No growth to date Radiographic Studies: reviewed. CTA ABD/PELVIS Result Date: 12/20/2022 IMPRESSION: 1. No evidence for GI bleed. 2. Finding concerning for pancreatitis. No pancreatic ductdilatation or pseudocyst. Recommend correlation with labs. 3. Hepatic cirrhosis with ascites. 4. Wall thickening of the proximal ascending, descending and sigmoid colon which could be secondary to hypertensive portal colopathy. However, infectious versus inflammatory colitis cannot be excluded. 5. Nonenlarged peripancreatic and few borderline enlarged left para-aortic lymph nodes which could be reactive. THIS DOCUMENT HAS BEEN ELECTRONICALLY SIGNED BY MARK LEMUS MD XR CHEST 1 VIEW Result Date: 12/20/2022 IMPRESSION: Hazy bibasilar airspace opacities secondary to infiltrate versus atelectasis with smallbilateral pleural effusions. THIS DOCUMENT HAS BEEN ELECTRONICALLY SIGNED BY MARK LMEUS MD Assessment & Plan Principal Problem: Shock (HCC) POA: Unknown Active Problems: Gastrointestinal hemorrhage POA: Yes Overview: colonoscopy Acute on chronic respiratory failure with hypoxia (HCC) POA: Yes Pleural effusion POA: Unknown Acute pulmonary edema (HCC) POA: Unknown Acute on chronic anemia POA: Unknown Pain of upper abdomen POA: Unknown POA = Present On Admission NEUROLOGICAL: Chronic pain RASS Goal: 0 RASS: 0 Alert and Calm (12/22/22399) Pain Control: home tramadol prn, lidocaine patch Current Pain Score: 0 (no pain) (12/22/22399) Delirium/Confusion Assessment: CAM-ICU Positive?: No (12/22/22399) Resume home tramadol, trazodone Resume home gabapentin PULMONARY / RESPIRATORY: Acute on chronic hypoxic respiratory failure Pulmonary edema Bilateral pleural effusions Pulmonary hypertension, group 1 Smoker Patient on 2-3 L of oxygen at home however tells me she does not reliably where, here patient requiring 6 L of oxygen and satting 100%, we will work on weaning down to patient's home O2 requirements Breo and incruse 1 puff daily Holding home Ambrisentan and tadalafil while on pressors Holding home torsemide and spironolactone We will diurese with Bumex 2 mg IV once again today We will consider restarting home torsemide tomorrow CARDIOVASCULAR: Undifferentiated shock, possibly cardiogenic Elevated BNP Echo 04/2022 showing an EF of 60%, with improvement in pulm HTN Vasopressors: Wean as able for SBP goal of 90 NORepinephrine Dose (mcg/min): 1 mcg/min (12/22/22 0500) TTE significant for EF of 55% with mildly reduced RV systolic function and moderate pulmonary hypertension GASTROINTESTINAL / HEPATOBILIARY: Possible GI bleed Candidal esophagitis Cirrhosis secondary to autoimmune hepatitis Esophageal varices Portal hypertensive gastropathy Ascites Last Bowel Movement: 12/20/22 (12/22/22 0000) Stool Description: (no stool to assess at this time) (12/21/221999) Bowel Regimen: Bowel prep in preparation for colonoscopy Stress Ulcer Prophylaxis: Proton Pump Inhibitor.. Diet / Nutrition: Clear liquid diet, NPO after midnight GI consult, recommendations pending-- plans to perform colonoscopy tomorrow; patient repeating bowel prep as not tolerate and overnight due to nausea and vomiting Hold home nadolol, Aldactone, lactulose, torsemide Rocephin 1g daily x7 days for SBP prophylaxis, stop date 12/27 Patient receiving fluconazole treatment for candidal esophagitis Octreotide and IV PPI was discontinued We will continue with home omeprazole 20 mg daily Will continue home lactulose to help with bowel prep RENAL / METABOLIC / FLUIDS: Acute kidney injury Electrolyte derangements Admission Cr 2.6 Baseline Cr 0.9. Hyponatremia likely secondary to volume overload, we will monitor closely and should improve with diuresis Most Recent: Serum creatinine: 1 mg/dL 12/22/22 0437 Estimated creatinine clearance: 57.5 mL/min Monitor electrolytes at least daily. Replete electrolytes as indicated. Avoid Nephrotoxins including NSAIDS and IV contrast. Strict monitoring of fluid intake and output. Renal dosing and medication considerations adjusted for glomerular filtration rate. Daily weights. We will keep Hilario in for now and plan to remove tomorrow INFECTIOUS DISEASES: Esophageal candidiasis We will continue with SBP prophylaxis in setting of patient's prior history and concern for possible GI bleed P.o. fluconazole 2 mg daily for 14 days Antibiotic Regimen: Rocephin 1 g x 7 days . End date of antibiotics: 12/27. ENDOCRINE: Postop hypothyroidism History of Graves disease status post thyroidectomy Continue home levothyroxine Blood Glucose Monitoring (BGM) Goal: 140-180. Controlled HEMATOLOGIC: Acute on chronic anemia Concern for possible hemolytic anemia with schistocytes seen on smear Will order further workup however labs may be altered in setting of patient receiving blood transfusions Baseline hemoglobin 8-11?; hemoglobin today 7.8 VTE/DVT Prophylaxis: SubQ heparin Holding home iron Monitor Hgb closely and transfuse if <7 Follow-up further anemia workup including LDH, haptoglobin, reticulocyte count, Cynthia test, we will consider Hematology consult pending those results MUSCULOSKELETAL/ P.T / O.T. / MOBILITY: SLE Neck pain Chronic back pain Neck pain likely musculoskeletal in nature, no nuchal rigidity PT/OT Pain meds prn, lidocaine patch Resume home CellCept DERMATOLOGIC / WOUND CARE: Raynaud's Wound care PRN Patient had infiltration of Levophed in right antecubital fossa IV. 10 mL of phentolamine was injected into and round infiltration site. Patient tolerated procedure well. Had good peripheral pulses in right arm. LINES / DRAINS / TUBES: LINES ALL Duration Peripheral Line Left Antecubital 18 Gauge 1 day Peripheral Line Left;Lower;Posterior Arm 20 Gauge 1 day Urethral Catheter Regular catheter 1 day List of services consulted/following: GASTROENTEROLOGY CONSULT IP ADULT PHYSICAL THERAPY CONSULT IP ADULT OCCUPATIONAL THERAPY CONSULT IP GLOBAL ISSUES: Code Status: Full Code Analgesia: pneumatic compression devices alone due to chemoprophylaxis contraindication Sedation: N/A Delirium/Confusion Assessment Method for ICU (CAM-ICU): CAM-ICU negative HOB Elevation: greater than 30 degrees Nutrition: enteral, advancing to goal DVT Prophylaxis: Subcutaneous heparin Stress Ulcer Prophylaxis: PPI therapy for other indication Glycemic Control: controlled - not in protocol Oral hygiene every four hours Chlorhexidine mouth rinse every twelve hours Central Line Necessity Reviewed: N/A Hilario: reviewed and needed Disposition: keep in ICU Patient's decisional capacity: has capacity to make decisions Communication with Patient/Family: No meeting held. I called patient's over the telephone however he did not continuous pickling line pickler. I left a voicemail stating that I will try to reach him again later. Goals of Care: improve respiratory status, stabilize hemodynamic status, and decrease pain and discomfort Patient was discussed with attending physician, DO Mary Davenport MD Critical Care Medicine Fellow - PGY4 This chart was completed in part utilizing [employer] Speech Voice Recognition Software. Grammatical errors, random word insertions, pronoun errors, and incomplete sentences are an occasional consequence of this system due to software limitations, ambient noise, and hardware issues. Any formal questions or concerns about the content, text, or information contained within the body of this dictation should be directly addressed to the provider for clarification. Associated attestation - Andie Chavis DO - 12/22/2022 6:15 PM EDT [facility] STAFF NOTE: I saw and evaluated the patient today. I have reviewed the trainee note and agree. Principal Problem: Shock (HCC) POA: Unknown Active Problems: Gastrointestinal hemorrhage POA: Yes Overview: colonoscopy Acute on chronic respiratory failure with hypoxia (HCC) POA: Yes Pleural effusion POA: Unknown Acute pulmonary edema (HCC) POA: Unknown Acute on chronic anemia POA: Unknown Pain of upper abdomen POA: Unknown Iron deficiency anemia due to chronic blood loss POA: Unknown POA = Present On Admission In summary, Jazmín Blevins is a 57 year old female with PMH significant for autoimmune hepatitis, cirrhosis, esophageal varices, PH G, SLE, COPD, chronic hypoxemic respiratory failure, pulmonary hypertension on ambrisentan and tadalafil, Graves disease, hypothyroidism, Raynaud syndrome, and active tobacco use who was admitted to [facility] on 12/21/2022 with undifferentiated shock. Initial hemoglobin upon arrival was 5.1. The patient was initiated on vasopressors. Concern was for chronic GI bleed leading to anemia and also decompensated pulmonary hypertension. The patient wastransfused 2 units PRBCs. The patient was admitted to the ICU for further care. Patient seen and examined. No acute overnight events. Patient remains on low- dose vasopressors withnorepinephrine at 1 microgram/minute. Continue to wean off as able. 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 Hemoglobin remained stable. The patient hasnot required additional PRBC transfusions. Continue with IV diuresis as tolerated. Patient currently undergoing bowel prep for possible colonoscopy on 12/23/2022. Continue IV PPI. Octreotide infusionhas been discontinued. Continue IV ceftriaxone for SBP prophylaxis. Continue supportive care. Critical Care time: 35 minutes independent of teaching, procedures, or other providers. * Andie Chavis, DO - 12/21/2022 3:48 PM EDT [facility] STAFF NOTE: Principal Problem: Shock (HCC) POA: Unknown Active Problems: Gastrointestinal hemorrhage POA: Yes Overview: colonoscopy Acute on chronic respiratory failure with hypoxia (HCC) POA: Yes Pleural effusion POA: Unknown Acute pulmonary edema (HCC) POA: Unknown Acute on chronic anemia POA: Unknown POA = Present On Admission In summary, Jazmín Blevins is a 57 year old female with PMH significant for autoimmune hepatitis, cirrhosis, esophageal varices, PH G, SLE, COPD, chronic hypoxemic respiratory failure, pulmonary hypertension on ambrisentan and tadalafil, Graves disease, hypothyroidism, Raynaud syndrome, and active tobacco use who was admitted to [facility] on 12/21/2022 with undifferentiated shock. Initial hemoglobin upon arrival was 5.1. The patient was initiated on vasopressors. Concern was for chronic GI bleed leading to anemia and also decompensated pulmonary hypertension. The patient wastransfused 2 units PRBCs. The patient was admitted to the ICU for further care. Patient seen and examined. She is awake and alert. Patient states that she is feeling much improvedthis morning. Remains on low-dose vasopressors. Will continue to wean as able. As patient has stabilized, will initiate gentle diuresis as tolerated. GI plans for upper EGD today. Plan to continue octreotide infusion and IV PPI twice daily. Continue IV ceftriaxone for SBP prophylaxis. Holding CALENDER LET OFF OPERATOR ambrisentan and tadalafil while on vasopressors. Will restart when able. No additional critical care time today. Please see critical care time documented in the patient's H&P from today's date. * Mary Dickerson MD - 12/21/2022 6:04 AM EDT CCM - PROGRESS NOTE [facility] [place]-[address] [address] Name: Jazmín Blevins Location: [facility] [place] [id number] Date: 12/21/2022 Date of admission: 12/21/2022 Hospital length of stay: 0 days PATIENT DESCRIPTION: The patient is a 57 year old female with PMHx signficant for cirrhosis secondary to autoimmune hepatitis, esophageal varices, portal hypertensive gastropathy, ascites, SLE on cellcept, COPD on home oxygen, pulmonary hypertension, Graves status post thyroidectomy, hypothyroidism, and Raynaud's who was transferred from outside facility secondary to shock, NAZARIO and acute on chronic anemia. Patient was hypotensive with a blood pressure of 70/40 and hemoglobin of 5.1. Outside imaging showing chest x-ray with bilateral basilar opacities and small pleural effusions. CTA abdomen pelvis negative for acute bleeding. Patient was given 1.6 L of IV fluids and started on antibiotics. She was also transfused 2 units of packed red blood cells. Patient was transferred to [facility] for further management. Subjective INTERIM HISTORY / SUBJECTIVE: This morning, patient evaluated at bedside. She reports feeling better. Still with intermittent neck pain radiating down into her shoulders. Patient denies any chest pain and shortness breast. She denies any nausea, vomiting or abdominal pain. Patient remains on Levophed. She tells me that her lower extremity edema has significantly improved. Patient tells me that she wears oxygen at home as needed. Patient's last pulmonary drain notes werereviewed and she is to wear 3 L of oxygen at night and 2 L during the day. Patient states that she is compliant with all her prescribed medication. She denies drinking alcohol. Admits to smoking a few cigarettes the other day however tells me that she quit years ago. Objective CONSTITUTIONAL DATA / OBJECTIVE: Vital Signs (Most Recent): Pulse: 57 (12/21/22499) BP: 96/58 (12/21/22499) Resp: 16 (12/21/22499) Temp: 36.6 C (97.9 F) (12/21/22399) SpO2: 93 % (12/21/22499) Vital Signs (Last 24 Hours): Pulse Av.4 Min: 54 Max: 78 No data recorded Most Recent Systolic BP Av.2 mmHg Min: 81 mmHg Max: 107 mmHg Most Recent Diastolic BP Av.4 mmHg Min: 42 mmHg Max: 85 mmHg Resp Av.4 Min: 11 Max: 16 Most Recent Temperature Av.6 C Min: 36.5 C Max: 36.61 C SpO2 Av.4 % Min: 90 % Max: 98 % Ventilatory Support: HFNC: O2 flow rate: 6 L/MIN (12/21/22499) CPAP/EPAP: IPAP: Intake & Output Summary (Last 24 hours): Intake/Output Summary (Last 24 hours) at 12/21/2022609 Last data filed at 12/21/2022499 Gross per 24 hour Intake 607.5 ml Output 460 ml Net 147.5 ml Net IO Since Admission: 147.5 mL [12/21/22603] Height & Weight: Height: 167.6 cm (5' 6") (12/21/2299) Weight: 57.7 kg (127 lb 3.3 oz) (09/13/23 0100) Weight change: Body mass index is 20.53 kg/m. Physical Examination: General: Patient in no apparent distress HEENT: normocephalic, atraumatic Heart: regular rate and rhythm; S1 and S2 present; no murmurs, rubs or gallops. Pulmonary: Bibasilar crackles,On 6L NC satting 98% Abdomen: Soft, non-tender, non-distended. Normal bowel sounds and no rebound or guarding. MSK: Gross motor function intact Extremities: 1+ lower extremity bilaterally Skin: [place]ey, warm, no wounds or lesions present. Neuro: AAOx3. No gross motor or sensory deficits. Psych: Appropriate mood and affect Urethral Catheter Regular catheter (Active) Number of days: 0 Peripheral Line Right Antecubital 20 Gauge (Active) Number of days: 1 Peripheral Line Left Antecubital 18 Gauge (Active) Number of days: 1 Peripheral Line Left;Lower;Posterior Arm 20 Gauge (Active) Number of days: 1 Laboratory Values: reviewed. -- Brief labs below include the 7 most recent results over the past week. Blood Gas: Lab results within last 7 days (see chart for full results) Units 12/20/22 1701 pH, Venous units 7.419 pCO2, Venous mmHg 41.5 pO2, Venous mmHg 13.2* Base Excess, Venous mmol/L 2.2* Chemistry Panel: Lab results within last 7 days (see chart for full results) Units 12/21/22 0433 12/21/22 0125 12/20/22 1701 Sodium mmol/L 133* 132* 130* Potassium mmol/L 3.5 3.0* 3.1* Chloride mmol/L 97* 97* 93* CO2 mmol/L 21* 22 25 BUN mg/dL 29* 31* 35* Creatinine mg/dL 2.0* 2.1* 2.6* Estimated Glomerular Filtration Rate mL/min 29* 28* 21* Glucose mg/dL 114 118 130* Calcium mg/dL 7.7* 7.9* 8.4 Magnesium mg/dL 1.9 1.6 -- Phosphorus mg/dL 3.4 3.1 -- Anion Gap mmol/L 15 13 12 Complete Blood Count: Lab results within last 7 days (see chart for full results) Units 12/21/22 0433 12/21/22 0241 12/20/22 1701 WBC K/uL 10.82* 10.50 10.97* HGB g/dL 7.2* 7.6* 5.1* HCT % 25.3* 26.4* 18.2* PLT K/uL 192 197 231 MCV fL 74.6 74.4 68.2 Cardiac Studies: Lab results within last 7 days (see chart for full results) Units 12/21/22 0125 12/20/22 1701 Troponin T, High Sensitivity ng/L 16* 15* CK-MB ng/mL 1.6 -- BNP, NT-Pro pg/mL 2,671* -- Coagulation Studies: Lab results within last 7 days (see chart for full results) Units 12/21/22 0125 12/20/22 1701 Prothrombin Time seconds 15.8* 16.2* INR 1.2 1.3* aPTT seconds -- 29 Liver Function Panel: Lab results within last 7 days (see chart for full results) Units 12/21/22 0433 12/20/22 1701 Albumin g/dL 3.0* 3.0* Protein g/dL 6.0 6.6 Bilirubin, Total mg/dL 2.0* 0.5 Bilirubin, Direct mg/dL 0.4* 0.2 AST U/L 13 12 ALT U/L 10 7* Alkaline Phosphatase U/L 69 74 Infectious Studies: Lab results within last 7 days (see chart for full results) Units 12/21/22 0433 12/21/22 0125 12/20/22 1701 Lactate, Whole Blood mmol/L -- -- 1.9 Lactate mmol/L 1.1 1.6 -- Procalcitonin ng/mL -- -- 0.18* Cultures: reviewed. Recent Cultures (2 Weeks) 12/20/2022 5:01 PM BLOOD CULTURE GROWTH No growth to date No growth to date Radiographic Studies: reviewed. CTA ABD/PELVIS Result Date: 12/20/2022 IMPRESSION: 1. No evidence for GI bleed. 2. Finding concerning for pancreatitis. No pancreatic ductdilatation or pseudocyst. Recommend correlation with labs. 3. Hepatic cirrhosis with ascites. 4. Wall thickening of the proximal ascending, descending and sigmoid colon which could be secondary to hypertensive portal colopathy. However, infectious versus inflammatory colitis cannot be excluded. 5. Nonenlarged peripancreatic and few borderline enlarged left para-aortic lymph nodes which could be reactive. THIS DOCUMENT HAS BEEN ELECTRONICALLY SIGNED BY MARK LEMUS MD XR CHEST 1 VIEW Result Date: 12/20/2022 IMPRESSION: Hazy bibasilar airspace opacities secondary to infiltrate versus atelectasis with smallbilateral pleural effusions. THIS DOCUMENT HAS BEEN ELECTRONICALLY SIGNED BY MARK LEMUS MD Assessment & Plan Active Problems: Gastrointestinal hemorrhage POA: Yes Overview: colonoscopy Acute on chronic respiratory failure with hypoxia (HCC) POA: Yes Shock (HCC) POA: Unknown Pleural effusion POA: Unknown Acute pulmonary edema (HCC) POA: Unknown Acute on chronic anemia POA: Unknown POA = Present On Admission NEUROLOGICAL: Chronic pain RASS Goal: 0 RASS: 0 Alert and Calm (12/21/22399) Pain Control: home tramadol prn, lidocaine patch Current Pain Score: 3 (mild pain) (12/21/22 020) Delirium/Confusion Assessment: CAM-ICU Positive?: No (12/21/22399) Resume home tramadol, trazodone Hold home gabapentin until renal function improves PULMONARY / RESPIRATORY: Acute on chronic hypoxic respiratory failure Pulmonary edema Bilateral pleural effusions Pulmonary hypertension, group 1 Smoker Patient on 2-3 L of oxygen at home however tells me she does not reliably where, here patient requiring 6 L of oxygen and satting 100%, we will work on weaning down to patient's home O2 requirements Breo and incruse 1 puff daily Holding home Ambrisentan and tadalafil while on pressors Holding home torsemide and spironolactone We will diurese with Bumex 2 mg IV x2 today CARDIOVASCULAR: Undifferentiated shock, possibly cardiogenic Elevated BNP Echo 04/2022 showing an EF of 60%, with improvement in pulm HTN Vasopressors: Wean as able for SBP goal of 90 NORepinephrine Dose (mcg/min): 6 mcg/min (12/21/2299) Pending TTE Will trial diuresing which may improve cardiac function and in turn get her off pressors GASTROINTESTINAL / HEPATOBILIARY: Possible GI bleed Cirrhosis secondary to autoimmune hepatitis Esophageal varices Portal hypertensive gastropathy Ascites Last Bowel Movement: 12/20/22 (12/21/22 010) Stool Description: Small;Brown (pet patient report) (12/21/2299) Bowel Regimen: will hold off starting bowel regimen at this time as patient had BM today . Stress Ulcer Prophylaxis: Proton Pump Inhibitor.. Diet / Nutrition: NPO may advance after EGD once patient awake GI consult, recommendations pending Hold home nadolol, Aldactone, lactulose, torsemide Rocephin 1g daily x7 days for SBP prophylaxis, stop date 12/27 Continue octreotide drip Continue IV Protonix Bedside EGD performed by GI this afternoon. Grade 1 varices were seen along with possible Scott esophagitis. Final report and recommendations from GI are pending. Conscious sedation was provided for the procedure with 4 mg of Versed, 50 mcg of fentanyl and 50 mg of propofol. Patient tolerated theprocedure, no obvious complications. We will plan to resume diet once sedation wears off. RENAL / METABOLIC / FLUIDS: Acute kidney injury Electrolyte derangements Admission Cr 2.6 Baseline Cr 0.9. Hyponatremia likely secondary to volume overload, we will monitor closely and should improve with diuresis Most Recent: Serum creatinine: 2 mg/dL (H) 12/21/22 0433 Estimated creatinine clearance: 28.3 mL/min (A) Monitor electrolytes at least daily. Replete electrolytes as indicated. Avoid Nephrotoxins including NSAIDS and IV contrast. Strict monitoring of fluid intake and output. Renal dosing and medication considerations adjusted for glomerular filtration rate. Daily weights. We will keep Hilario in for now and plan to remove tomorrow INFECTIOUS DISEASES: No signs of infection at this time We will continue with SBP prophylaxis in setting of patient's prior history and concern for possible GI bleed Viral respiratory panel neg Continue following culture data. Blood culture and urine culture pending, MRSA screen negative Procalcitonin elevated at 0.18 Antibiotic Regimen: Rocephin 1 g x 7 days . End date of antibiotics: 12/27. ENDOCRINE: Postop hypothyroidism History of Graves disease status post thyroidectomy Continue home levothyroxine Blood Glucose Monitoring (BGM) Goal: 140-180. Controlled HEMATOLOGIC: Acute on chronic anemia Baseline hemoglobin 8-11? VTE/DVT Prophylaxis: pneumatic compression devices alone due to chemoprophylaxis contraindication Holding home iron Will plan to start DVT ppx tomorrow if Hgb remains stable Monitor Hgb closely and transfuse if <7 Will obtain peripheral smear for further evaluation of anemia, may need colonoscopy as EGD was unrevealing MUSCULOSKELETAL/ P.T / O.T. / MOBILITY: SLE Neck pain Chronic back pain Neck pain likely musculoskeletal in nature, no nuchal rigidity PT/OT Pain meds prn, lidocaine patch Will hold home cellcept today, if remains afebrile will resume DERMATOLOGIC / WOUND CARE: Raynaud's No acute concerns Wound care PRN LINES / DRAINS / TUBES: LINES ALL Duration Peripheral Line Left Antecubital 18 Gauge <1 day Peripheral Line Left;Lower;Posterior Arm 20 Gauge <1 day Peripheral Line Right Antecubital 20 Gauge <1 day Urethral Catheter Regular catheter <1 day List of services consulted/following: GASTROENTEROLOGY CONSULT IP GLOBAL ISSUES: Code Status: Full Code Analgesia: pneumatic compression devices alone due to chemoprophylaxis contraindication Sedation: N/A Delirium/Confusion Assessment Method for ICU (CAM-ICU): CAM-ICU negative HOB Elevation: greater than 30 degrees Nutrition: enteral, advancing to goal DVT Prophylaxis: pneumatic compression devices alone due to chemoprophylaxis contraindication Stress Ulcer Prophylaxis: PPI therapy for other indication Glycemic Control: controlled - not in protocol Oral hygiene every four hours Chlorhexidine mouth rinse every twelve hours Central Line Necessity Reviewed: N/A Hilario: reviewed and needed Disposition: keep in ICU Patient's decisional capacity: has capacity to make decisions Communication with Patient/Family: No meeting held. Will update family over telephone. Goals of Care: improve respiratory status, stabilize hemodynamic status, and decrease pain and discomfort Patient was discussed with attending physician, DO Mary Davenport MD Critical Care Medicine Fellow - PGY4 This chart was completed in part utilizing [employer] Speech Voice Recognition Software. Grammatical errors, random word insertions, pronoun errors, and incomplete sentences are an occasional consequence of this system due to software limitations, ambient noise, and hardware issues. Any formal questions or concerns about the content, text, or information contained within the body of this dictation should be directly addressed to the provider for clarification. Associated attestation - Andie Chavis DO - 12/21/2022 4:51 PM EDT [facility] STAFF NOTE: I saw and evaluated the patient today. I have reviewed the trainee note and agree. Please see my separate progress note from 12/21/2022 for additional details. documented in this encounter H&P Notes * Luisito Reinoso, DO - 12/23/2022 10:30 AM EDT Endoscopy Pre-Procedure Assessment Name: Jazmín Blevins Date: 12/23/2022 Time: 10:30 AM Procedure(s): Colonoscopy; with Indication(s) of evaluation of [...] Admission medications Medication Sig Last Dose Discont. traMADol HCl 50 MG Oral Tablet (Ultram) Take 2 Tablets by mouth every 6 hours as needed for Pain, Moderate. Levothyroxine Sodium 150 MCG Oral Tablet (Levoxyl) TAKE 1 TABLET BY MOUTH DAILY IN THE MORNING. (ATLEAST 30 MIN PRIOR TO BREAKFAST OR OTHER MEDS) Nadolol 40 MG Oral Tablet (Corgard) TAKE 1 TABLET BY MOUTH EVERY DAY IN THE MORNING traZODone HCl 50 MG Oral Tablet (Desyrel) Take 1 Tablet by mouth at bedtime. Spironolactone 100 MG Oral Tablet (Aldactone) TAKE 1 AND 1/2 TABLETS BY MOUTH EVERY DAY Patient taking differently: Take 1.5 Tablets by mouth in the morning. TAKE 1 AND 1/2 TABLETS BY MOUTH EVERY DAY. Fluticasone Propionate 50 MCG/ACT Nasal Suspension (Flonase) Administer 2 Sprays into nostril in the morning. Ipratropium-Albuterol 0.5-2.5 (3) MG/3ML Inhalation Solution (Duoneb) Inhale 3 mL via nebulizer in the morning and 3 mL at noon and 3 mL in the evening and 3 mL before bedtime. Patient taking differently: Inhale 3 mL via nebulizer every 4 hours as needed for Dyspnea. Mycophenolate Mofetil 500 MG Oral Tablet (Cellcept) Take 1 Tablet by mouth in the morning and 1 Tablet before bedtime. Ambrisentan 10 MG Oral Tablet (Letairis) TAKE 1 TABLET BY MOUTH 1 TIME A DAY. DO NOT HANDLE IF . DO NOT SPLIT, CRUSH, OR CHEW. AVOID INHALATION AND CONTACT WITH SKIN OR EYES. Fluticasone Furoate-Vilanterol 200-25 MCG/ACT Inhalation Aerosol Powder Breath Activated (BREO ellipta) Inhale 1 Puff by mouth in the morning. Tadalafil (PAH) 20 MG Oral Tablet Take 2 Tablets by mouth in the morning. Patient taking differently: Take 2 Tablets by mouth in the morning. Torsemide 20 MG Oral Tablet (Demadex) Take 2 Tablets by mouth in the morning. TAKE 2 TABLETS BY MOUTH EVERY DAY IN THE MORNING Strength: 20 mg. Gabapentin 300 MG Oral Capsule (Neurontin) Take 2 Capsules by mouth at bedtime. Take one cap by mouth at bedtime for two weeks, then may increase to 2 caps at bedtimes Omeprazole 20 MG Oral Capsule Delayed Release (PriLOSEC) Take 1 Capsule by mouth in the morning. Spiriva HandiHaler 18 MCG Inhalation Capsule (tiotropium bromide) Inhale 1 Capsule by mouth in the morning. . Do not swallow capsule.. Albuterol Sulfate HFA 108 (90 Base) MCG/ACT Inhalation Aerosol Solution Inhale 2 Puffs by mouth every 4 hours as needed for Shortness of Breath or Wheezing. Klor-Con M20 20 MEQ Oral Tablet Extended Release (Potassium Chloride Gianna ER) TAKE 2 TABLETS BY MOUTH IN THE MORNING. Magnesium Chloride 64 MG Oral Tablet Delayed Release (Mag-64) Take by mouth 4 Tablets in the morning. Lactulose 10 GM/15ML Oral Solution (Constulose) TAKE 30 ML BY MOUTH 3 TIMES A DAY Patient taking differently: Take 30 mL by mouth as needed for Constipation. Calcium Citrate 200 MG Oral Tablet Take 400 mg by mouth 2 times a day. Ferrous Sulfate 325 (65 Fe) MG Oral Tablet (Feosol) Take 1 Tab by mouth 2 times a day. Ascorbic Acid (VITAMIN C-CORWIN HIPS) 1000 MG TABS Take 1 Tablet by mouth in the morning. oxygen IN GAS 3 liters/min at rest and at night and 5 liters/min on activity Patient taking differently: 3 liters/min at rest and at night and 5 liters/min on activity as needed Nebulizer Device For use with duoneb treatment Review of patient's allergies indicates: Allergen Reactions Dilaudid [Hydromorphone Hcl] Itching Environmental Pollen -asthmatic attacks BP 107/67 | Pulse 54 | Temp 36.3 C (97.3 F) (Tympanic) | Resp 15 | Ht 1.676 m (5' 6") | Wt 53.1kg (117 lb 1 oz) | LMP 07/09/2012 | SpO2 90% | BMI 18.89 kg/m | BSA 1.57 m Physical Exam: Mental Status Examination: alert and oriented. Airway Examination: normal oropharyngeal airway and neck mobility. Respiratory Examination: clear to auscultation. CV Examination: regular rate and rhythm. ASA Grade: II - A patient with mild systemic disease. Abdomen: soft This patient has undergone a preprocedural evaluation. A determination has been made to proceed with the planned procedure under [facility] [place] procedural guidelines and the [facility] Non-Emergent, Elective Medical Services and Treatment Recommendations (published on 07-16-19). The community and hospital prevalence of COVID-19 has been discussed as well as this patient's specific risks associated with SARS-CoV-19 infection. Based upon the clinical acuity and patient-specific care considerations, this procedure is deemed a Tier II - Intermediate acuity treatment or service with either progression or the threat of progressive disease related to the delay in treatment. Not providing the service has the potential for increasing morbidity or mortality. After reviewing the risks and benefits, the patient is deemed in satisfactory condition to undergo the procedure. The anesthesia plan is to use general anesthesia. Luisito Reinoso DO 12/23/2022 * Wander Person DO - 12/21/2022 12:09 AM EDT HISTORY & PHYSICAL EXAMINATION - Critical Care Medicine [address] [id number] Name: Jazmín Blevins Location: [facility] A548/A Date: 12/21/2022 Time: 12:09 AM Care during the described time interval was provided by me. I have reviewed this patient's available data, including medical history, events of note, physical examination and test results. DATE OF ADMISSION: 12/21/2022 PRESENTING PROBLEM: Shock, NAZARIO, Anemia HPI: Pt is a 57 y/o/f with extensive PMHx includin. Cirrhosis secondary to Autoimmune Hepatitis 2. Esophageal varices 3. Portal hypertensive gastropathy 4. Ascites secondary to cirrhosis 5. SLE on chronic Cellcept 6. COPD on 2 L/min baseline oxygen at night 7. Pulmonary hypertension 8. Graves disease s/p thyroidectomy 9. Postoperative hypothyroidism 10. Raynaud's syndrome Pt presents to [facility] ICU as a transfer from [facility] ED d/t shock, NAZARIO, and acute on chronic anemia. Pt presented to [facility] ED with symptoms of bilateral feet swelling, dizziness, blurred vision, fatigue, and head/neck pain radiating down her spine x 3 days. No recent fevers or sick contacts. No recent travel. At presentation she was hypotensive with BP 70s/40s. 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 CXR showing bibasilar opacities with small bilateral pleural effusions. CTA abd/pelvis unrevealing for acute GI bleeding with mild peripancreatic inflammation and trace free fluid concerning for possible pancreatitis. She was treated for sepsis with 1.6L NSS bolus and IV vanc/zosyn. Also given 2 u PRBC. Remained hypotensive and started on norepinephrine. Transferred to [facility] for further care. On arrival pt was hypotensive on norepinephrine. Endorses neck pain radiating down her spine and dizziness. Denies chest pain, abdominal pain, nausea, vomiting, SOB, subjective fever/chills, numbness/tingling. POC cardiac US showing dilated IVC, RV similar size to LV. On chart review she is noted to have a 20 lb weight gain from her baseline. She notes that she normally is approximately ~106 lbs (last home weight about 6 days ago) and currently is ~127 lbs. PAST MEDICAL HISTORY: Past Medical History: Diagnosis Date Arthritis Asthma Autoimmune hepatitis (HCC) Cirrhosis (HCC) Esophageal varices in cirrhosis (HCC) Esophageal varices without mention of bleeding in diseases classified elsewhere 12/19/2012 upper endoscopy Hemorrhage of gastrointestinal tract, unspecified 12/20/2012 colonoscopy Hiatal hernia Laryngospasm Portal hypertensive gastropathy (HCC) Postsurgical hypothyroidism Schatzki's ring Sialoadenitis Systemic lupus erythematosus (HCC) diagnosis in question Toxic diffuse goiter PAST SURGICAL HISTORY: Past Surgical History: Procedure Laterality Date BREAST LESION,OTHER,EXCISION Right 05/09/2017 benign excisional biopsy COLONOSCOPY, DIAGNOSTIC (RECTUM) 12/20/2012 COLONOSCOPY FLEXIBLE PROXIMAL DIAGNOSTIC performed by Naomie Magallanes MD at ENDOSCOPY [facility] COLONOSCOPY, DIAGNOSTIC (RECTUM) N/A 05/10/2016 COLONOSCOPY FLEXIBLE PROXIMAL DIAGNOSTIC performed by Jeffrey Weber MD at ENDOSCOPY [facility] COLONOSCOPY, DIAGNOSTIC (RECTUM) N/A 05/11/2022 COLONOSCOPY FLEXIBLE PROXIMAL DIAGNOSTIC performed by Jeffrey Weber MD at ENDOSCOPY [facility] EGD, FLEXIBLE, DIAGNOSTIC 05/30/2012 UPPER GI ENDOSCOPY DIAGNOSTIC performed by Cipriano Butler MD at ENDOSCOPY [facility] EGD, FLEXIBLE, DIAGNOSTIC 12/19/2012 UPPER GI ENDOSCOPY DIAGNOSTIC performed by Krupa Robledo DO at ENDOSCOPY [facility] EGD, FLEXIBLE, DIAGNOSTIC N/A 03/21/2014 ESOPHAGOGASTRODUODENOSCOPY (EGD), FLEXIBLE, TRANSORAL, DIAGNOSTIC performed by Axel English MDa ENDOSCOPY [facility] EGD, FLEXIBLE, DIAGNOSTIC N/A 12/18/2014 ESOPHAGOGASTRODUODENOSCOPY (EGD), FLEXIBLE, TRANSORAL, DIAGNOSTIC performed by Jeffrey Weber MD at ENDOSCOPY [facility] EGD, FLEXIBLE, DIAGNOSTIC N/A 05/10/2016 ESOPHAGOGASTRODUODENOSCOPY (EGD), FLEXIBLE, TRANSORAL, DIAGNOSTIC performed by Jeffrey Weber MD at ENDOSCOPY [facility] EGD, FLEXIBLE, DIAGNOSTIC 06/11/2018 hiatal hernia, repeat 3 yrs/ESOPHAGOGASTRODUODENOSCOPY (EGD), FLEXIBLE, TRANSORAL, DIAGNOSTIC performed by Adelaida Sood MD at ENDOSCOPY [facility] EGD, FLEXIBLE, DIAGNOSTIC N/A 11/01/2019 ESOPHAGOGASTRODUODENOSCOPY (EGD), FLEXIBLE, TRANSORAL, DIAGNOSTIC performed by Michael Bar MD at ENDOSCOPY [facility] EGD, FLEXIBLE, DIAGNOSTIC N/A 05/11/2022 ESOPHAGOGASTRODUODENOSCOPY (EGD), FLEXIBLE, TRANSORAL, DIAGNOSTIC performed by Jeffrey Weber MD at ENDOSCOPY [facility] EXC BREAST LESION RADMARK Right 05/09/2017 EXCISION OF BREAST LESION RADIOLOGICAL MARKER performed by Vicky Bahena MD at OR [facility] INFORMATION 1998 bone spur/cyst & ganglia removal left foot x2 INJECT DX/THER SUBSTANCE INTERLAMINAR LUMBAR/SACRAL W IMAGE GUIDE 07/22/2021 INJECTION SPINE LUMBAR OR SACRAL performed by Wong Cornelius, DO at OR [facility] INJECT DX/THER SUBSTANCE INTERLAMINAR LUMBAR/SACRAL W IMAGE GUIDE 11/16/2021 INJECTION SPINE LUMBAR OR SACRAL performed by Wong Cornelius, DO at OR [facility] INJECT DX/THER SUBSTANCE INTERLAMINAR LUMBAR/SACRAL W IMAGE GUIDE 06/15/2022 INJECTION SPINE LUMBAR OR SACRAL performed by Wong Cornelius, DO at OR [facility] INJECT DX/THER SUBSTANCE INTERLAMINAR LUMBAR/SACRAL W IMAGE GUIDE 11/09/2022 INJECTION SPINE LUMBAR OR SACRAL performed by Wong Cornelius DO at OR [facility] IR BIOPSY 07/02/2012 TRANSCATHETER BIOPSY performed by Fabian Larry MD at RADIOLOGY [facility] L-/S-SPINE PARAVERTEBRAL FACET INJ,1 LEVEL 02/15/2018 L-/S-SPINE PARAVERTEBRAL FACET INJ, 1 LEVEL performed by [place] Brandi Cornelius DO at OR [facility] L-/S-SPINE PARAVERTEBRL FACET INJ,2 LEVELS 02/15/2018 L-/S-SPINE PARAVERTEBRAL FACET INJ, 2 LEVELS performed by [place] Brandi Cornelius DO at OR [facility] LAPAROSCOPY; CHOLECYSTECTOMY 03/23/10 Dr Ingram LAPAROSCOPY;RMV ADNEXAL STRUCT Bilateral 03/19/2021 LAPAROSCOPIC OOPHORECTOMY AND OR SALPINGECTOMY performed by Randi Mukherjee DO at OR [facility] LIGATE/CUT OVIDUCT(S) 1993 Tubal Ligation LUMBAR / SACRAL EPIDURAL, SINGLE LEVEL 03/05/2018 INJECTION TRANSFORAMINAL EPIDURAL LUMBAR OR SACRAL performed by Wong Cornelius DO at OR [facility] MISCELLANEOUS ORDER ([facility] ONLY) 2001 torn retina repair at [facility] EYE NEEDLE BIOPSY OF LIVER 03/23/10 [...] by Beau Leroy Jr., MD at OR [facility] RIGHT HEART CATH W/ O2 SAT AND CO Right 06/30/2020 RIGHT HEART CATH W/ O2 SAT AND CO performed by Gwyn Akins DO at CARDIAC LABS [facility] SACROILIAC JOINT INJECT W/GUIDANCE 12/25/2017 INJECTION SACROILIAC JOINT performed by Wong oCrnelius DO at OR [facility] FAMILY HISTORY: non-contributory SOCIAL HISTORY: Social History Tobacco Use Smoking status: Every Day Packs/day: 0.25 Years: 25.00 Pack years: 6.25 Types: Cigarettes Smokeless tobacco: Never Tobacco comments: 5-6 a day Vaping Use Vaping Use: Never used Substance Use Topics Alcohol use: No Drug use: Not Currently Types: Marijuana Comment: has not used in "quite a while" PRIOR TO ADMISSION MEDS: Reviewed - See Epic ALLERGIES: Dilaudid [hydromorphone hcl] and Environmental ROS: See Above PHYSICAL EXAMINATION: Most Recent Vital Signs: BP: 107 mmHg/85 mmHg (12/21/2299) Pulse: 57 (12/21/2299) Temp: 36.5 C (12/21/2299) Resp: 12 (12/21/2299) SpO2: 90 % (12/21/2299) Constitutional: Pleasant 57 y/o/f resting comfortably in bed in NAD. Appropriately conversant. Neck: + posterior paraspinal muscle tenderness. Full neck ROM without nuchal rigidity. CV: +S1/S2. Rate irregular. No MGR. Chest: No acute respiratory distress or tachypnea. Bibasilar crackles with diminished air movement at bilateral lung bases. Abdomen: Soft/nontender/distended. NABS. Extremities: Trace pitting edema to distal bilateral lower extremities. Warm and well perfused x 4.Moves all extremities to command. Skin: [place]/warm/dry. Multiple sequelae of chronic liver disease. Neuro: GCS 4/5/6. AAO x 4. Non-focal exam. LABORATORY VALUES: reviewed RADIOGRAPHIC STUDIES: reviewed Acute Problems 1. Shock, unclear etiology 2. NAZARIO 3. Acute on chronic anemia 4. Hypokalemia 5. Hyponatremia 6. Hypervolemia 7. Acute CHF 8. ? GI bleeding 9. Acute on chronic hypoxic respiratory failure secondary to pulmonary edema/pleural effusions Chronic Problems 1. Cirrhosis secondary to Autoimmune Hepatitis 2. Esophageal varices 3. Portal hypertensive gastropathy 4. Ascites secondary to cirrhosis 5. SLE on chronic Cellcept 6. COPD on 2 L/min baseline oxygen at night 7. Pulmonary hypertension 8. Graves disease s/p thyroidectomy 9. Postoperative hypothyroidism 10. Raynaud's syndrome SYSTEM BASED PLAN: Neuro/Pain/Psych Neck pain -Unclear etiology, does not appear to be cause of her current clinical situation -Low suspicion of [place]ILL infection -Low dose IV tylenol if needed for pain control -Can consider CT imaging once renal function improves -CAM ICU Cardiac Shock, unclear etiology Acute CHF Hypervolemia -Clinically perfusing well, continue norepinephrine, titrate to MAP > 65 -Check TTE in AM -BNP elevated, has had 20 lb weight gain in ~1 week -Hold diuresis until acute bleeding has been ruled out Pulmonary Acute on chronic hypoxic respiratory failure secondary to pulmonary edema and pleural effusions -Stable on NC O2, wean to baseline 2 L/min as tolerated -Low suspicion for infectious etiology -Diuresis when clinically feasible Hx COPD on baseline O2, Pulmonary HTN -TTE as above -Resume CALENDER LET OFF OPERATOR duonebs -Resume CALENDER LET OFF OPERATOR albuterol nebs prn -Hold CALENDER LET OFF OPERATOR Ambrisentan and Tadalafil, resume as soon as taking PO -Resume CALENDER LET OFF OPERATOR spiriva equivalent (Incruse ellipta) -Hold CALENDER LET OFF OPERATOR torsemide GI/Hepatobiliary Possible GI bleeding Hx cirrhosis 2/2 AIH, esophageal varices, ascites, portal hypertensive gastropathy -GI consulted, full recs pending -Suspect chronic bleed given current clinical picture -Start octreotide gtt d/t, IV protonix BID -Strict NPO -CTX for SBP ppx -Daily MELD labs -Trend CBC q 6 h, transfuse for Hgb < 7 or if actively bleeding -Unlikely to have acute pancreatitis despite CT findings; no related symptoms and normal Lipase -Hold CALENDER LET OFF OPERATOR aldactone, Nadolol -Resume CALENDER LET OFF OPERATOR lactulose when taking PO Renal/Fluids/Electrolytes NAZARIO Hypokalemia, hypomagnesemia, hyponatremia Hypervolemia -Etiology prerenal d/t hemorrhage vs cardiorenal syndrome -Hilario placed, making adequate urine -Hold continuous IVF or diuresis -Recheck BMP, Lytes q 6 h and correct accordingly; renal function improving on recheck -Lactate WNL Endocrine Hx Graves disease s/p thyroidectomy and post operative hypothyroidism -Resume CALENDER LET OFF OPERATOR levothyroxine once taking PO meds Heme Acute on chronic anemia -Recheck CBC, s/p 2 u PRBC at OSH -Transfuse for Hgb < 7 -Suspect etiology is chronic GI bleed given microcytic anemia and her cirrhosis history with multiple sequelae -TEG, Coags WNL DVT/PE ppx -Mechanical prophylaxis only until bleeding has been ruled out Infectious Disease No acute concerns -Low suspicion of infection -CTX for SBP ppx d/t cirrhosis history; hold further empiric abx -Check RVP given neck pain/myalgias -Procal normal -BC x 2 pending MSK/Derm/Rheum Hx SLE, Raynaud's -Resume CALENDER LET OFF OPERATOR Cellcept once taking PO L/D/A -PIV x 2 -Hilario GLOBAL ISSUES: Analgesia: no pain Sedation: N/A Delirium/Confusion Assessment Method for ICU (CAM-ICU): CAM-ICU negative HOB Elevation: greater than 30 degress Nutrition: NPO DVT Prophylaxis: pneumatic compression devices alone due to chemoprophylaxis contraindication Stress Ulcer Prophylaxis: PPI therapy for other indication Glycemic Control: controlled - not in protocol Central Line Necessity Reviewed: N/A Hilario: reviewed and needed Disposition: keep in ICU Patient's decisional capacity: has capacity to make decisions Communication with Patient/Family: Brief Family Communication. Patient/Family participation: Spouse/Partner. Updated pt's , Bipin, about her current condition and treatment plan. All questions answered. Goals of Care: improve respiratory status, wean respiratory parameters, and stabilize hemodynamic status I have provided critical care diagnostic services for circulatory failure, renal failure, respiratory failure, hematologic failure, severe metabolic derangement(s) and therapeutic services with frequent vasoactive agent adjustments, renal replacement therapy assessment, treatment of complex metaboli c, frequent evaluation and titration of therapies, application of advanced monitoring technologies,extensive interpretation of multiple databases for this patient on the date referenced above. Time devoted to patient care services described in this note equal: 70 minutes total critical care time exclusive of time spent performing procedures or time spent by another provider or resident. Discussed with Dr. Person Full code Attending Attestation: I have discussed the patient's management with the medical trainee and agree with the note. Please refer to the documented findings and plan of care. The patient's bedside service today consisted of an evaluation. I was present and confirmed the findings of the history and exam. Cirrhosis with varices, portal hypertensive gastropathy, ascites, SLE, pulmonary hypertension presenting with fatigue, weight gain, LE edema. Initial hgb 5.1, hypotensive requiring vasopressors. Suspect GI bleed (possibly slow chronic bleed) leading to anemia with decompensated pulmonary hypertension. Transfuse to goal hgb 7. GI consult. Octreotide and PPI. CTX for SBP ppx. Will need diuresis once stable. Critical care time 45 minutes independent of teaching, procedures, or other providers. documented in this encounter Procedure Notes * Andrés Reddy MD - 12/28/2022 7:50 AM EDTAssociated Order(s): EKG REASON FOR STUDY: CHEST PAIN CONCLUSIONS: Normal sinus rhythm Normal ECG When compared with ECG of 22-DEC-2022 10:43, No significant change was found Ventricular Rate: 75 Atrial Rate: 75 AR Interval: 114 QRS Duration: 74 QT/QTc: 392/437 ms P-R-T [place]: 21 : 59 : 58 degrees * Pamela Badillo DO - 12/23/2022 10:45 AM EDTAssociated Order(s): COLONOSCOPY [facility] Patient Name: Jazmín Blevins Procedure Date: 12/23/2022 10:45 AM Date of : 1965 Admit Type: Inpatient Note Status: Finalized Date of : 1965 Admit Type: Inpatient Age: 57 Room: Endo - Room 4 Gender: Female Note Status: Finalized Procedure: Colonoscopy Indications: Iron deficiency anemia Providers: Enma Reinoso DO (Doctor), Marbin Massey (Fellow), Poppy Knutson RN Patient Profile: This is a 57 year old female. Refer to note in patient chart for documentation of history and physical. Referring MD: Pamela Badillo Medicines: General Anesthesia Complications: No immediate complications. Procedure: Pre-Anesthesia Assessment: - Prior to the procedure, a History and Physical was performed, and patient medications, allergies and sensitivities were reviewed. The patient's tolerance of previous anesthesia was reviewed. - The risks and benefits of the procedure and the sedation options and risks were discussed with the patient. All questions were answered and informed consent was obtained. - Patient identification and proposed procedure were verified prior to the procedure by the physician, the nurse and the cork cutter. The procedure was verified in the endoscopy suite. - The supervising physician was present for the entire procedure from scope insertion until scope withdrawal. After I obtained informed consent, the scope was passed under direct vision. All instruments were visually inspected immediately before and after removal from the patient to ensure they are fully intact. Throughout the procedure, the patient's blood pressure, pulse, and oxygen saturations were monitored continuously. The [id number]-H180J Colonoscope([id number]) was introduced through the anus and advanced to the cecum, identified by appendiceal orifice and ileocecal valve. The colonoscopy was performed without difficulty. The patient tolerated the procedure well. The quality of the bowel preparation was adequate to identify polyps 6 mm and larger in size. Findings & Specimens: Multiple medium-sized diffuse angiodysplastic lesions without bleeding were found in the transverse colon and in the ascending colon. Coagulation for bleeding prevention using argon plasma at 0.8 liters/minute and 20 arenas was successful. A 3 mm polyp was found in the cecum. The polyp was sessile. The polyp was removed with a cold biopsy forceps. Resection and retrieval were complete. The pathology specimen was placed into Bottle A. A previous clip found in the transverse colon. A localized area of moderately erythematous mucosa was found in the ascending colon. Large, non-bleeding rectal varices were found. Non-bleeding internal hemorrhoids were found during retroflexion. The hemorrhoids were medium-sized. Hemorrhoids were found on perianal exam. Impression: - Multiple non-bleeding colonic angiodysplastic lesions. Treated with argon plasma coagulation (APC). - One 3 mm polyp in the cecum, removed with a cold biopsy forceps. Resected and retrieved. - Previous stent in the transverse colon. - Erythematous mucosa in the ascending colon. - Rectal varices. - Non-bleeding internal hemorrhoids. - Hemorrhoids found on perianal exam. Recommendation: - Return patient to hospital [facility] for ongoing care. - follow GI consult team recommendation. - Repeat colonoscopy in 3 years for surveillance as recommended on last colonoscopy. Enma Reinoso DO 12/23/2022 12:39:31 PM This report has been signed electronically. Marbin Massey, Estimated Blood Loss: Estimated blood loss: none. * Pamela Badillo DO - 12/21/2022 2:09 PM EDTAssociated Order(s): UPPER GI ENDOSCOPY [facility] Patient Name: Jazmín Blevins Procedure Date: 12/21/2022 2:09 PM Date of : 1965 Admit Type: Inpatient Note Status: Finalized Date of : 1965 Admit Type: Inpatient Age: 57 Room: ICU4 Gender: Female Note Status: Finalized Procedure: Upper GI endoscopy Indications: Acute post hemorrhagic anemia, Suspected upper gastrointestinal bleeding, Abnormal CT of the GI tract Providers: Wilmer Bhatia MD (Doctor), Armando Hernandez DO (Fellow), Livia Kwong RN, Randi Bell, Rn Cardiology Patient Profile: This is a 60 year old male. Refer to note in patient chart for documentation of history and physical. Referring MD: Pamela Badillo, Naomie Magallanes MD, Andie Chavis DO Medicines: Per ICU Monitored Anesthesia Care Complications: No immediate complications. Procedure: Pre-Anesthesia Assessment: - Prior to the procedure, a History and Physical was performed, and patient medications, allergies and sensitivities were reviewed. The patient's tolerance of previous anesthesia was reviewed. - The risks and benefits of the procedure and the sedation options and risks were discussed with the patient. All questions were answered and informed consent was obtained. - Patient identification and proposed procedure were verified prior to the procedure by the physician and the nurse. The procedure was verified in the pre-procedure area in the procedure room. - The medication list for this patient has been reviewed prior to the procedure and has been determined that the patient may proceed with the planned study. Any medication changes made as a result of the findings of this procedure have been discussed with the patient and/or accounting representative at the time of discharge from the department. - The supervising physician was present for the entire procedure from scope insertion until scope withdrawal. - The risks and benefits of the procedure and the sedation options and risks were discussed with the patient. All questions were answered and informed consent was obtained. - Patient identification and proposed procedure were verified prior to the procedure by the physician and the nurse. The procedure was verified ICU. After obtaining informed consent, the endoscope was passed under direct vision. All instruments were visually inspected immediately before and after removal from the patient to ensure they are fully intact. Throughout the procedure, the patient's blood pressure, pulse, and oxygen saturations were monitored continuously. The GIF-HQ190 Endoscope ([id number]) was introduced through the mouth, and advanced to the second part of duodenum. The upper GI endoscopy was accomplished without difficulty. The patient tolerated the procedure fairly well. Findings & Specimens: Patchy, yellow plaques were found in the middle third of the esophagus and in the lower third of the esophagus. LA Grade A (one or more mucosal breaks less than 5 mm, not extending between tops of 2 mucosal folds) esophagitis with no bleeding was found at the gastroesophageal junction. A 3 cm hiatal hernia was present. The Z-line was regular and was found 36 cm from the incisors. The gastroesophageal flap valve was visualized endoscopically and classified as Hill Grade IV (no fold, wide open lumen, hiatal hernia present). Small (< 5 mm) varices were found in the distal esophagus. No bleeding and no high risk stigmataof bleeding was found. The entire examined stomach was normal. The examined duodenum was normal. Impression: - Esophageal plaques were found, consistent [...] severe acute anemia found on this endoscopy. Recommendation: - Treat scott esophagitis. - Follow an antireflux regimen. Continue PPI therapy. May discontinue IV octreotide. - Repeat upper endoscopy in 1 year for surveillance. - Further recommendations per inpatient GI consult team. Wilmer Bhatia MD 12/21/2022 4:59:37 PM This report has been signed electronically. Armando Hernandez DO Estimated Blood Loss: Estimated blood loss: none. documented in this encounter Consult Notes * Juana Rothman DO - 12/28/2022 2:35 PM EDTAssociated Order(s): Thoracic Medicine / Pulmonology Consult IP Thoracic Medicine / Pulmonology Consult IP Consult performed by: Juana Rothman DO Consult ordered by: Hamzah Mcdonald MD Please see separate consult note filed 12/28/2022 at 12:43 pm. 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 Patient examined at bedside. No acute overnight events. She is resting comfortably in bed with 4L supplemental O2 via LFNC. Patient does not complain of dyspnea while in bed, but states that she is dyspneic on exertion. She is concerned of reproducible, left-sided chest pain, fatigue, and headache.Denies fever / chills, nausea, substernal chest pain, dyspnea, cough, and edema. PAST MEDICAL HISTORY: Past Medical History: Diagnosis Date Arthritis Asthma Autoimmune hepatitis (HCC) Cirrhosis (HCC) Esophageal varices in cirrhosis (HCC) Esophageal varices without mention of bleeding in diseases classified elsewhere 12/19/2012 upper endoscopy Hemorrhage of gastrointestinal tract, unspecified 12/20/2012 colonoscopy Hiatal hernia Laryngospasm Portal hypertensive gastropathy (HCC) Postsurgical hypothyroidism Schatzki's ring Sialoadenitis Systemic lupus erythematosus (HCC) diagnosis in question Toxic diffuse goiter PAST SURGICAL HISTORY: Past Surgical History: Procedure Laterality Date BREAST LESION,OTHER,EXCISION Right 05/09/2017 benign excisional biopsy COLONOSCOPY, DIAGNOSTIC (RECTUM) 12/20/2012 COLONOSCOPY FLEXIBLE PROXIMAL DIAGNOSTIC performed by Naomie Magallanes MD at ENDOSCOPY [facility] COLONOSCOPY, DIAGNOSTIC (RECTUM) N/A 05/10/2016 COLONOSCOPY FLEXIBLE PROXIMAL DIAGNOSTIC performed by Jeffrey Weber MD at ENDOSCOPY [facility] COLONOSCOPY, DIAGNOSTIC (RECTUM) N/A 05/11/2022 COLONOSCOPY FLEXIBLE PROXIMAL DIAGNOSTIC performed by Jeffrey Weber MD at ENDOSCOPY [facility] COLONOSCOPY, DIAGNOSTIC (RECTUM) N/A 12/23/2022 COLONOSCOPY FLEXIBLE PROXIMAL DIAGNOSTIC performed by Luisito Reinoso DO at ENDOSCOPY [facility] EGD, FLEXIBLE, DIAGNOSTIC 05/30/2012 UPPER GI ENDOSCOPY DIAGNOSTIC performed by Cipriano Butler MD at ENDOSCOPY [facility] EGD, FLEXIBLE, DIAGNOSTIC 12/19/2012 UPPER GI ENDOSCOPY DIAGNOSTIC performed by Krupa Robledo DO at ENDOSCOPY [facility] EGD, FLEXIBLE, DIAGNOSTIC N/A 03/21/2014 ESOPHAGOGASTRODUODENOSCOPY (EGD), FLEXIBLE, TRANSORAL, DIAGNOSTIC performed by Mary Alejandro ENDOSCOPY [facility] EGD, FLEXIBLE, DIAGNOSTIC N/A 12/18/2014 ESOPHAGOGASTRODUODENOSCOPY (EGD), FLEXIBLE, TRANSORAL, DIAGNOSTIC performed by Jeffrey Weber MD at ENDOSCOPY [facility] EGD, FLEXIBLE, DIAGNOSTIC N/A 05/10/2016 ESOPHAGOGASTRODUODENOSCOPY (EGD), FLEXIBLE, TRANSORAL, DIAGNOSTIC performed by Jeffrey Weber MD at ENDOSCOPY [facility] EGD, FLEXIBLE, DIAGNOSTIC 06/11/2018 hiatal hernia, repeat 3 yrs/ESOPHAGOGASTRODUODENOSCOPY (EGD), FLEXIBLE, TRANSORAL, DIAGNOSTIC performed by Adelaida Sood MD at ENDOSCOPY [facility] EGD, FLEXIBLE, DIAGNOSTIC N/A 11/01/2019 ESOPHAGOGASTRODUODENOSCOPY (EGD), FLEXIBLE, TRANSORAL, DIAGNOSTIC performed by Michael Bar MD at ENDOSCOPY [facility] EGD, FLEXIBLE, DIAGNOSTIC N/A 05/11/2022 ESOPHAGOGASTRODUODENOSCOPY (EGD), FLEXIBLE, TRANSORAL, DIAGNOSTIC performed by Jeffrey Weber MD at ENDOSCOPY [facility] EGD, FLEXIBLE, DIAGNOSTIC N/A 12/21/2022 ESOPHAGOGASTRODUODENOSCOPY (EGD), FLEXIBLE, TRANSORAL, DIAGNOSTIC performed by Wilmer Bhatia MD at ENDOSCOPY [facility] EXC BREAST LESION RADMARK Right 05/09/2017 EXCISION OF BREAST LESION RADIOLOGICAL MARKER performed by Vicky Bahena MD at OR [facility] INFORMATION 1997 bone spur/cyst & ganglia removal left foot x2 INJECT DX/THER SUBSTANCE INTERLAMINAR LUMBAR/SACRAL W IMAGE GUIDE 07/22/2021 INJECTION SPINE LUMBAR OR SACRAL performed by [place] Wander Cornelius DO at OR [facility] INJECT DX/THER SUBSTANCE INTERLAMINAR LUMBAR/SACRAL W IMAGE GUIDE 11/16/2021 INJECTION SPINE LUMBAR OR SACRAL performed by [place] Wander Cornelius DO at OR [facility] INJECT DX/THER SUBSTANCE INTERLAMINAR LUMBAR/SACRAL W IMAGE GUIDE 06/15/2022 INJECTION SPINE LUMBAR OR SACRAL performed by [place] Wander Cornelius DO at OR [facility] INJECT DX/THER SUBSTANCE INTERLAMINAR LUMBAR/SACRAL W IMAGE GUIDE 11/09/2022 INJECTION SPINE LUMBAR OR SACRAL performed by Wong Cornelius DO at OR [facility] IR BIOPSY 07/02/2012 TRANSCATHETER BIOPSY performed by Fabian Larry MD at RADIOLOGY [facility] L-/S-SPINE PARAVERTEBRAL FACET INJ,1 LEVEL 02/15/2018 L-/S-SPINE PARAVERTEBRAL FACET INJ, 1 LEVEL performed by [place] Brandi Cornelius DO at OR [facility] L-/S-SPINE PARAVERTEBRL FACET INJ,2 LEVELS 02/15/2018 L-/S-SPINE PARAVERTEBRAL FACET INJ, 2 LEVELS performed by [facility] DO Ashli at OR [facility] LAPAROSCOPY; CHOLECYSTECTOMY 03/23/10 Dr Ingram LAPAROSCOPY;RMV ADNEXAL STRUCT Bilateral 03/19/2021 LAPAROSCOPIC OOPHORECTOMY AND OR SALPINGECTOMY performed by Randi Mukherjee DO at [facility] LIGATE/CUT OVIDUCT(S) 1993 Tubal Ligation LUMBAR / SACRAL EPIDURAL, SINGLE LEVEL 03/05/2018 INJECTION TRANSFORAMINAL EPIDURAL LUMBAR OR SACRAL performed by Wong Cornelius DO at OR [facility] MISCELLANEOUS ORDER ([facility] ONLY) 2001 torn retina repair at [facility] EYE NEEDLE BIOPSY OF LIVER 03/23/10 [...] by Beau Leroy Jr., MD at OR [facility] RIGHT HEART CATH W/ O2 SAT AND CO Right 06/30/2020 RIGHT HEART CATH W/ O2 SAT AND CO performed by Gwyn Akins DO at CARDIAC LABS [facility] SACROILIAC JOINT INJECT W/GUIDANCE 12/25/2017 INJECTION SACROILIAC JOINT performed by Wong Cornelius DO at OR [facility] FAMILY HISTORY: Family History Problem Relation Age of Onset Heart Disorder Mother 1st [place] age 58 Stroke Mother Neurological Disorder Mother [...] Problems Grandmother (Maternal) Heart Disorder Grandfather (Maternal) [place] Stroke Grandfather (Maternal) Breast Cancer Grandmother (Paternal) [...] ALLERGIES: Dilaudid [hydromorphone hcl] and Environmental ROS: Reviewed and were negative with the exception of those listed above. PHYSICAL EXAMINATION: Most Recent Vital Signs: BP: 112 mmHg/67 mmHg (12/28/22 1000) Pulse: 72 (12/28/22 1000) Temp: 36.78 C (12/28/22 1000) Resp: 18 (12/28/22 1000) SpO2: 97 % (12/28/22 1000) O2 Mode: O2 %: O2 Flow Rate: O2 flow rate: 4 L/MIN (12/28/22 1000) IPAP: CPAP/EPAP: Vital Signs Last 24 Hours: Systolic BP: Most Recent Systolic BP Av.9 mmHg Min: 94 mmHg Max: 112 mmHg Temperature: Most Recent Temperature Av.6 C Min: 35.94 C Max: 36.89 C Pulse: Pulse Av Min: 63 Max: 85 Respirations: Resp Av.4 Min: 17 Max: 20 SpO2: SpO2 Av.3 % Min: 92 % Max: 97 % Physical Exam Constitutional: Appearance: She is ill-appearing. HENT: Head: Normocephalic and atraumatic. Cardiovascular: Rate and Rhythm: Normal rate and regular rhythm. Pulses: Normal pulses. Heart sounds: Normal heart sounds. Pulmonary: Effort: Pulmonary effort is normal. No respiratory distress. Breath sounds: Normal breath sounds. No wheezing or rhonchi. Comments: Reproducible L-sided chest tenderness Chest: Chest wall: Tenderness present. Abdominal: General: Bowel sounds are normal. There is distension. Tenderness: There is abdominal tenderness. Musculoskeletal: General: No swelling or tenderness. Right lower leg: No edema. Left lower leg: No edema. Skin: General: Skin is warm and dry. Neurological: General: No focal deficit present. Mental Status: She is alert and oriented to person, place, and time. Psychiatric: Mood and Affect: Mood normal. Behavior: Behavior normal. Intake/Output 12/27/22 0700 - 12/28/22 0659 12/28/22 0700 - 12/29/22 0659 [id number] Total 0414-7084 [id number] [id number] Total Intake P.O. 1320 600 -- 1920 -- -- -- -- Total Intake 1320 600 -- 1920 -- -- -- -- Output Total Output -- -- -- -- -- -- -- -- UOP = Urine Output Urine Output Source: Bathroom (12/28/22 0744) Voiding: Moderate (12/27/22 1700) Bladder Scan: 98 (PVR) (12/22/22 2200) Last BM = Last Bowel Movement: 12/28/22 (12/28/22 1100) LABS: Labs reviewed as indicated below: Laboratory Values: reviewed. -- Brief labs below include the 7 most recent results over the past week. Blood Gas: No results in the last 7 days - inpatent use only Chemistry Panel: Lab results within last 7 days (see chart for full results) Units 12/28/22 0846 12/27/22 0755 12/26/22 0723 12/25/22 0836 12/24/22 0634 12/23/22 0629 12/22/22 0437 Sodium mmol/L 137 137 136 136 139 138 136 Potassium mmol/L 4.4 4.3 3.1* 2.7* 3.5 3.2* 3.5 Chloride mmol/L 104 103 95* 95* 102 100 99 CO2 mmol/L 24 27 31 30 28 29 27 BUN mg/dL 5* 4* 4* 6 7 13 20 Creatinine mg/dL 0.7 0.7 0.7 0.8 0.7 0.9 1.0 Estimated Glomerular Filtration Rate mL/min >90 >90 >90 89 >90 80 63 Glucose mg/dL 82 94 87 139* 107 95 157* Calcium mg/dL 8.3* 8.4 7.4* 7.5* 8.2* 8.1* 8.2* Magnesium mg/dL 1.7 1.9 1.9 1.3* 1.8 1.7 2.0 Phosphorus mg/dL 2.6 2.5 3.1 3.1 2.5 2.2* 3.3 Anion Gap mmol/L 9 7 10 11 9 9 10 Complete Blood Count: Lab results within last 7 days (see chart for full results) Units 12/28/22 0846 12/27/22 0758 12/26/22 0723 12/25/22 1100 12/24/22 0634 12/23/22 1743 12/23/22 0629 WBC K/uL 7.55 7.76 9.25 10.13 12.05* 12.18* 10.97* HGB g/dL 7.5* 8.3* 7.5* 8.0* 7.4* 7.8* 7.5* HCT % 26.9* 29.5* 26.7* 28.3* 26.7* 26.9* 26.6* PLT K/uL 229 239 207 183 197 205 186 MCV fL 81.5 79.7 77.8 79.5 78.5 76.9 77.3 Cardiac Studies: Lab results within last 7 days (see chart for full results) Units 12/28/22 1153 12/28/22 0846 Troponin T, High Sensitivity ng/L 7 7 BNP, NT-Pro pg/mL -- 336* Coagulation Studies: No results in the last 7 days - inpatent use only Liver Function Panel: Lab results within last 7 days (see chart for full results) Units 12/26/22 0723 12/25/22 0836 12/24/22 0634 12/23/22 0629 12/22/22 0437 Albumin g/dL 2.5* 2.6* 2.6* 2.7* 3.0* Protein g/dL 5.5* 5.5* 5.7* 5.8* 6.3 Bilirubin, Total mg/dL 0.5 0.4 0.4 0.5 0.7 Bilirubin, Direct mg/dL <0.2 <0.2 <0.2 <0.2 0.3 AST U/L 11 10 11 12 10 ALT U/L 10 8* 9* 8* 8* Alkaline Phosphatase U/L 62 66 66 65 71 Infectious Studies: No results in the last 7 days - inpatent use only Cultures: reviewed. No results in the last 7 days - inpatent use only Recent Cultures (2 Weeks) 12/21/2022 12/20/2022 6:15 AM 5:01 PM BLOOD CULTURE GROWTH -- No growth No growth QUANT URINE CULTURE GROWTH No significant growth -- PFT data: None available to review CXR: Result Date: 12/28/2022 IMPRESSION No significant interval change. Stable small bilateral pleural effusions, left greater than right. CT Chest: N/A TTE: Result date: 12/21/2022 IMPRESSION:The qualitative LV ejection fraction is 55-59% (normal). No LV segmental wall motion abnormalities. The right ventricular systolic function is mildly reduced . Severe tricuspid regurgitation is present. Moderate pulmonary hypertension is present. IMPRESSION: Jazmín Blevins is a 57 yo female with PMH significant for pulmonary hypertension, Cirrhosis secondary to autoimmune hepatitis c/b esophageal varices, portal hypertension and ascites, chronic anemia, SLE, emphysema, COPD group C, and tobacco use who presented with undifferentiated shock and acute on chronic anemia. Primary concern now is her increased oxygen requirements from 2L O2 baseline to4L O2 currently. #Pulmonary hypertension Patient has a PMH of pulmonary HTN and medications were withheld during patient's hospital stay dueto sepsis, now resolved. Patient was initially on 3L O2, but had increased requirements to 5L LFNC on 12/25/22. She is now breathing comfortably in bed at 4L O2. Walking oximetry was performed showing decreased O2 saturations with exertion. It is likely the patient will require supplemental O2 24hrs given her O2 saturations and hx of Pulm HTN. Patient restarted on CALENDER LET OFF OPERATOR Tadalafil 40 mg and Ambrisentan 10 mg. CXR ordered 12/28. Given that the patient was given pRBC x2 and 1.6L IV fluid upon admission for sepsis, diuresis may be needed to improve pulmonary condition. Patient was admitted for a primary diagnosis of COPD Exacerbation: no Patient has a diagnosis of COPD: yes Patient also has pneumonia: no The patient has had PFT testing: yes PFT testing results are available: yes The PFT results support the diagnosis of COPD: yes Does this patient have hypercarbic respiratory failure (pCO2 greater than 52)? No Patient is being followed by a Research Food Technologist: yes, [facility] PULMONARY CONSULTATION SUGGESTION(S): Diurese patient as tolerable Continue Pulmonary hypertension medications Maintain O2 saturation > 90% Given patient's pulmonary hypertension, it may not be shocking if the patient requires 24 hr O2 supplementation following discharge Perform ambulatory oximetry before discharge to assess quantity of O2 supplementation required Follow-up in pulmonary clinic following discharge Flutter valve, incentive spirometry for ongoing pulmonary hygiene Thank you for consult. We will continue to follow. Please call or TT if questions. FELLOW ATTESTATION: Patient seen and discussed with Dr. Frey, Pulmonary / Thoracic Medicine Attending. Steve Virk, Medical Student MS3 STAFF NOTE: Pulmonary attending note: I attest that I have reviewed the student note and that the components of the history, the physicalexam, and the assessment and plan documented were performed in my presence with the student where Iverified the documentation and performed (or re-performed) the exam and medical decision making. Today, her oxygen requirement has increased 4 L per via nasal from per minute via nasal. Patient iscomplaining of significant desaturation on walking on room air. Patient is off diuretic. Echocardiogram still showing moderate pulmonary hypertension. She is on dual therapy for pulmonary hypertension. Impression: Acute chronic respiratory failure: Etiology likely combination of worsening pulmonary hypertension along with anemia Recommendations: -continue current treatment for pulmonary hypertension, start diuretic, continue current oxygen supplementation and slowly titrate down to keep SpO2 more than 90% -she may need oxygen for 24 hours and needs further evaluation in Pulmonary Clinic -for further details, documentation, recommendation, please refer to the trainee's note . Thank you for calling to be part of this patient care team, will follow the patient with you * Torrey Ko OT - 12/24/2022 11:33 AM EDT GENERAL EVALUATION- Occupational Therapy [facility]-[address] [address] Name: Jazmín Blevins Location: [facility] [id number]/A Date: 12/24/2022 Time: 12:03 PM HPI: Per EPIC, "Pt presents to [facility] ICU as a transfer from [facility] ED d/t shock, NAZARIO, and acute on chronic anemia. Pt presented to [facility] ED with symptoms of bilateral feet swelling, dizziness, blurred vision, fatigue, and head/neck pain radiating down her spine x 3 days. No recent fevers or sick contacts. No recent travel. At presentation she was hypotensive with BP 70s/40s. 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 CXR showing bibasilar opacities with small bilateral pleural effusions. CTA abd/pelvis unrevealing for acute GI bleeding with mild peripancreatic inflammation and trace free fluid concerning for possible pancreatitis. She was treated for sepsis with 1.6L NSS bolus and IV vanc/zosyn. Also given 2 u PRBC. Remained hypotensive and started on norepinephrine. Transferred to [facility] for further care. On arrival pt was hypotensive on norepinephrine. Endorses neck pain radiating down her spine and dizziness. Denies chest pain, abdominal pain, nausea, vomiting, SOB, subjective fever/chills, numbness/tingling. POC cardiac US showing dilated IVC, RV similar size to LV. On chart review she is noted to have a 20 lb weight gain from her baseline. She notes that she normally is approximately ~106 lbs (last home weight about 6 days ago) and currently is ~127 lbs" Patient Status: Inpatient Insurance: Payor: T MEDICARE ADVANTAGE Plan: [employer] MEDICARE ADVANTAGE PPO Product Type: *No Product type* Patient Seen: at bedside, nursing cleared patient for therapy Patient Identified By: Name, ID Band and Date Diagnosis: Anemia Shock (12/24/22 113) Status of treatment: OOB evaluation completed (12/24/221129) Orders: OT evaluation and treatment;OT OOB (12/24/221129) Weight Bearing Status: Weight bearing as tolerated (12/24/221129) Precautions: Alarms;Falls;Safety (12/24/22 113) Total Treatment Time: 10 (12/24/22 113) Past Medical History: Past Medical History: Diagnosis [...] performed by Naomie Magallanes MD at ENDOSCOPY [facility] COLONOSCOPY, DIAGNOSTIC (RECTUM) N/A 05/10/2016 COLONOSCOPY FLEXIBLE PROXIMAL DIAGNOSTIC performed by Jeffrey Weber MD at ENDOSCOPY [facility] COLONOSCOPY, DIAGNOSTIC (RECTUM) N/A 05/11/2022 COLONOSCOPY FLEXIBLE PROXIMAL DIAGNOSTIC performed by Jeffrey Weber MD at ENDOSCOPY [facility] EGD, FLEXIBLE, DIAGNOSTIC 05/30/2012 UPPER GI ENDOSCOPY DIAGNOSTIC performed by Cipriano Butler MD at ENDOSCOPY [facility] EGD, FLEXIBLE, DIAGNOSTIC 12/19/2012 UPPER GI ENDOSCOPY DIAGNOSTIC performed by Krupa Robledo DO at ENDOSCOPY [facility] EGD, FLEXIBLE, DIAGNOSTIC N/A 03/21/2014 ESOPHAGOGASTRODUODENOSCOPY (EGD), FLEXIBLE, TRANSORAL, DIAGNOSTIC performed by Mary Alejandro ENDOSCOPY [facility] EGD, FLEXIBLE, DIAGNOSTIC N/A 12/18/2014 ESOPHAGOGASTRODUODENOSCOPY (EGD), FLEXIBLE, TRANSORAL, DIAGNOSTIC performed by Jeffrey Weber MD at ENDOSCOPY [facility] EGD, FLEXIBLE, DIAGNOSTIC N/A 05/10/2016 ESOPHAGOGASTRODUODENOSCOPY (EGD), FLEXIBLE, TRANSORAL, DIAGNOSTIC performed by Jeffrey Weber MD at ENDOSCOPY [facility] EGD, FLEXIBLE, DIAGNOSTIC 06/11/2018 hiatal hernia, repeat 3 yrs/ESOPHAGOGASTRODUODENOSCOPY (EGD), FLEXIBLE, TRANSORAL, DIAGNOSTIC performed by Adelaida Sood MD at ENDOSCOPY [facility] EGD, FLEXIBLE, DIAGNOSTIC N/A 11/01/2019 ESOPHAGOGASTRODUODENOSCOPY (EGD), FLEXIBLE, TRANSORAL, DIAGNOSTIC performed by Michael Bar MD at ENDOSCOPY [facility] EGD, FLEXIBLE, DIAGNOSTIC N/A 05/11/2022 ESOPHAGOGASTRODUODENOSCOPY (EGD), FLEXIBLE, TRANSORAL, DIAGNOSTIC performed by Jeffrey Weber MD at ENDOSCOPY [facility] EXC BREAST LESION RADMARK Right 05/09/2017 EXCISION OF BREAST LESION RADIOLOGICAL MARKER performed by Vicky Bahena MD at OR [facility] INFORMATION 1998 bone spur/cyst & ganglia removal left foot x2 INJECT DX/THER SUBSTANCE INTERLAMINAR LUMBAR/SACRAL W IMAGE GUIDE 07/22/2021 INJECTION SPINE LUMBAR OR SACRAL performed by Wong Cornelius DO at OR [facility] INJECT DX/THER SUBSTANCE INTERLAMINAR LUMBAR/SACRAL W IMAGE GUIDE 11/16/2021 INJECTION SPINE LUMBAR OR SACRAL performed by Wong Cornelius DO at OR [facility] INJECT DX/THER SUBSTANCE INTERLAMINAR LUMBAR/SACRAL W IMAGE GUIDE 06/15/2022 INJECTION SPINE LUMBAR OR SACRAL performed by Wong Cornelius DO at OR [facility] INJECT DX/THER SUBSTANCE INTERLAMINAR LUMBAR/SACRAL W IMAGE GUIDE 11/09/2022 INJECTION SPINE LUMBAR OR SACRAL performed by Wong Cornelius DO at OR [facility] IR BIOPSY 07/02/2012 TRANSCATHETER BIOPSY performed by Fabian Larry MD at RADIOLOGY [facility] L-/S-SPINE PARAVERTEBRAL FACET INJ,1 LEVEL 02/15/2018 L-/S-SPINE PARAVERTEBRAL FACET INJ, 1 LEVEL performed by Wong Cornelius DO at OR [facility] L-/S-SPINE PARAVERTEBRL FACET INJ,2 LEVELS 02/15/2018 L-/S-SPINE PARAVERTEBRAL FACET INJ, 2 LEVELS performed by Wong Cornelius DO at OR [facility] LAPAROSCOPY; CHOLECYSTECTOMY 03/23/10 Dr Ingram LAPAROSCOPY;RMV ADNEXAL STRUCT Bilateral 03/19/2021 LAPAROSCOPIC OOPHORECTOMY AND OR SALPINGECTOMY performed by Randi Mukherjee DO at OR [facility] LIGATE/CUT OVIDUCT(S) 1993 Tubal Ligation LUMBAR / SACRAL EPIDURAL, SINGLE LEVEL 03/05/2018 INJECTION TRANSFORAMINAL EPIDURAL LUMBAR OR SACRAL performed by Wong Cornelius DO at OR [facility] MISCELLANEOUS ORDER ([facility] ONLY) 2001 torn retina repair at [facility] EYE NEEDLE BIOPSY OF LIVER 03/23/10 [...] by Beau Leroy Jr., MD at OR [facility] RIGHT HEART CATH W/ O2 SAT AND CO Right 06/30/2020 RIGHT HEART CATH W/ O2 SAT AND CO performed by Gwyn Akins DO at CARDIAC LABS [facility] SACROILIAC JOINT INJECT W/GUIDANCE 12/25/2017 INJECTION SACROILIAC JOINT performed by Wong Cornelius DO at OR [facility] Social History/Disposition Lives with: Spouse (12/22/22 100) Assistance available: Yes (12/22/221007) Dwelling type: Single story home (with finished basement) (12/22/22 100) Entry steps: 3 (12/22/22 100) Inside steps: 10 - 15 (to basement) (12/22/22 100) Bedroom location: 1st floor (12/22/22 100) Bath location: 1st floor full bath;Basement (12/22/22 1008) Prior Level of Function Reported by: Patient (12/22/22954) Ambulation: Ambulatory without device (12/22/22954) Grooming: Independent (12/22/22954) Bathing: Independent (12/22/22954) Dressing: Independent (12/22/22954) Feeding: Independent (12/22/22954) Toileting: Independent (12/22/22954) Meal Prep: Independent (12/22/22954) Homemaking: Independent (12/22/22954) Driving: Yes (12/22/22954) Observations Consciousness: Alert (12/24/221129) Orientation: Oriented times 4 (12/24/221129) Psychosocial: Patient can communicate basic needs;Patient can converse in a social setting (12/24/221129) Sitting posture: Forward head;Rounded shoulders (12/24/221129) Standing posture: Forward head;Rounded shoulders (12/24/221129) Safety awareness: The Patient verbalizes insight of current deficits.;The Patient demonstrates carryover of insight during functional tasks. (12/24/221129) Pain: Patient has no complaints of pain Current Functional Status: UE Strength/ROM: See bedrest eval Bed Mobility Supine-Sit: Modified Independent (12/24/221129) OT Transfers Sit-Stand: Modified Independent (12/24/221129) Stand-Sit: Modified Independent (12/24/221129) Functional Ambulation Assistive Device: No device (12/24/221129) Distance in feet:: 75 (12/24/221129) Level of Assistance: Modified Independent (12/24/221129) Self Care Able to provide self care: Yes (12/24/221129) Balance Sit (Static): Good (12/24/221129) Sit (Dynamic): Good (12/24/221129) Stand (Static): Good (12/24/221129) Stand (Dynamic): (Fair+) (12/24/221129) Dressing Upper Body: Modified Independent (12/24/221129) Lower Body: Modified Independent (12/24/221129) Equipment Equipment used in Therapy: No Device (12/22/22954) Patient and or Family Goal(s): None Alarm Status Patient positioned in: Bed (12/24/221129) With: Call pan in reach (12/24/221129) Treatment Provided: Therapeutic Activity: 10 minutes Patient Education Education Topic: Role of OT (12/24/221129) Review of Precautions: Safety (12/24/221129) Method of Education: Verbalized to patient (12/24/221129) Education Provided to: Patient (12/24/221129) Response to Education: Receptive and agreeable to education (12/24/221129) Barriers to learning: None (12/24/221129) Preferred learning method: Combination (12/24/221129) Method of Education: Verbal discussion and explanation provided to patient: verbalized understanding and or agreement of this information Assessment: Patient seen for OOB/functional assessment this date. On exam, she was able to completebed mobility independently. Patient was able complete UB/LB dressing simulation unassisted while edge of bed. She was able to ambulate independently in hallway and had no concerns with function at this time. No further OT needs. AM-PAC Help From Another Person Eating Meals: None (12/24/221129) Help From Another Person Taking Care of Personal Grooming: None (12/24/221129) Help From Another Person To Put On/Take Off Upper Body Clothing: None (12/24/221129) Help From Another Person To Put On/Take Off Lower Body Clothing: None (12/24/221129) Help From Another Person Toileting: None (12/24/221129) Help From Another Person Bathing: None (12/24/221129) OT AM-PAC Score: 24 (12/24/221129) OT AM-PAC t-Scale Score: 57.54 (12/24/221129) HLM (Highest Level of Mobility) Goal: Level 5 standing (1 or more minutes) (12/22/221999) A portion of this AM-PAC assessment not scored based on functional assessment; rather clinical decision making was utilized based on current findings and/or prior level of function. Please refer to future AM-PAC calculations of functional ability as they become available. Treatment Plan: Discontinue Occupational Therapy services Goal Time Frame:N/A * Jax Whitten, PT - 12/24/2022 11:30 AM EDT GENERAL EVALUATION - Physical Therapy [address] [address] Name: Jazmín Blevins Location: [facility] B727/A Date: 12/24/2022 Time: 1:05 PM Jazmín Blevins is a 57 year old female. Patient Status: Inpatient Insurance: Payor: [employer] MEDICARE ADVANTAGE Plan: [employer] PPO Product Type: *No Product type* Patient Seen: at bedside, nursing cleared patient for therapy Patient Identified By: Name, ID Band, and Date Subjective: Pt seen in room, agreeable to exam. Pt reports she has been getting OOB to bathroom andfeels much stronger. Diagnosis: anemia, shock (12/24/22 1130) Status of treatment: OOB evaluation completed (12/24/22 113) Orders: PT evaluation and treatment;OOB (12/24/22 1130) Weight Bearing Status: Weight bearing as tolerated (12/24/22 1130) Precautions: Oxygen;Falls (12/24/22 1130) Total Treatment Time--free text: 10 (12/24/22 113) Past Medical History: Past Medical History: Diagnosis [...] performed by Naomie Magallanes MD at ENDOSCOPY [facility] COLONOSCOPY, DIAGNOSTIC (RECTUM) N/A 05/10/2016 COLONOSCOPY FLEXIBLE PROXIMAL DIAGNOSTIC performed by Jeffrey Weber MD at ENDOSCOPY [facility] COLONOSCOPY, DIAGNOSTIC (RECTUM) N/A 05/11/2022 COLONOSCOPY FLEXIBLE PROXIMAL DIAGNOSTIC performed by Jeffrey Weber MD at ENDOSCOPY [facility] EGD, FLEXIBLE, DIAGNOSTIC 05/30/2012 UPPER GI ENDOSCOPY DIAGNOSTIC performed by Cipriano Butler MD at ENDOSCOPY [facility] EGD, FLEXIBLE, DIAGNOSTIC 12/19/2012 UPPER GI ENDOSCOPY DIAGNOSTIC performed by Krupa Robledo DO at ENDOSCOPY [facility] EGD, FLEXIBLE, DIAGNOSTIC N/A 03/21/2014 ESOPHAGOGASTRODUODENOSCOPY (EGD), FLEXIBLE, TRANSORAL, DIAGNOSTIC performed by Axel English MDa ENDOSCOPY [facility] EGD, FLEXIBLE, DIAGNOSTIC N/A 12/18/2014 ESOPHAGOGASTRODUODENOSCOPY (EGD), FLEXIBLE, TRANSORAL, DIAGNOSTIC performed by Jeffrey Weber MD at ENDOSCOPY [facility] EGD, FLEXIBLE, DIAGNOSTIC N/A 05/10/2016 ESOPHAGOGASTRODUODENOSCOPY (EGD), FLEXIBLE, TRANSORAL, DIAGNOSTIC performed by Jeffrey Weber MD at ENDOSCOPY [facility] EGD, FLEXIBLE, DIAGNOSTIC 06/11/2018 hiatal hernia, repeat 3 yrs/ESOPHAGOGASTRODUODENOSCOPY (EGD), FLEXIBLE, TRANSORAL, DIAGNOSTIC performed by Adelaida Sood MD at ENDOSCOPY [facility] EGD, FLEXIBLE, DIAGNOSTIC N/A 11/01/2019 ESOPHAGOGASTRODUODENOSCOPY (EGD), FLEXIBLE, TRANSORAL, DIAGNOSTIC performed by Michael Bar MD at ENDOSCOPY [facility] EGD, FLEXIBLE, DIAGNOSTIC N/A 05/11/2022 ESOPHAGOGASTRODUODENOSCOPY (EGD), FLEXIBLE, TRANSORAL, DIAGNOSTIC performed by Jeffrey Weber MD at ENDOSCOPY [facility] EXC BREAST LESION RADMARK Right 05/09/2017 EXCISION OF BREAST LESION RADIOLOGICAL MARKER performed by Vicky Bahena MD at OR [facility] INFORMATION 1998 bone spur/cyst & ganglia removal left foot x2 INJECT DX/THER SUBSTANCE INTERLAMINAR LUMBAR/SACRAL W IMAGE GUIDE 07/22/2021 INJECTION SPINE LUMBAR OR SACRAL performed [facility] INJECT DX/THER SUBSTANCE INTERLAMINAR LUMBAR/SACRAL W IMAGE GUIDE 11/16/2021 INJECTION SPINE LUMBAR OR SACRAL performed by Wong Cornelius, DO at OR [facility] INJECT DX/THER SUBSTANCE INTERLAMINAR LUMBAR/SACRAL W IMAGE GUIDE 06/15/2022 INJECTION SPINE LUMBAR OR SACRAL performed by Wong Cornelius, at OR [facility] INJECT DX/THER SUBSTANCE INTERLAMINAR LUMBAR/SACRAL W IMAGE GUIDE 11/09/2022 INJECTION SPINE LUMBAR OR SACRAL performed by Wong Cornelius DO at OR [facility] IR BIOPSY 07/02/2012 TRANSCATHETER BIOPSY performed by Fabian Larry MD at RADIOLOGY [facility] L-/S-SPINE PARAVERTEBRAL FACET INJ,1 LEVEL 02/15/2018 L-/S-SPINE PARAVERTEBRAL FACET INJ, 1 LEVEL performed by Wong Cornelius DO at OR [facility] L-/S-SPINE PARAVERTEBRL FACET INJ,2 LEVELS 02/15/2018 L-/S-SPINE PARAVERTEBRAL FACET INJ, 2 LEVELS performed by [place] Brandi Cornelius DO at OR [facility] LAPAROSCOPY; CHOLECYSTECTOMY 03/23/10 Dr Ingram LAPAROSCOPY;RMV ADNEXAL STRUCT Bilateral 03/19/2021 LAPAROSCOPIC OOPHORECTOMY AND OR SALPINGECTOMY performed by Randi Mukherjee DO at OR [facility] LIGATE/CUT OVIDUCT(S) 1993 Tubal Ligation LUMBAR / SACRAL EPIDURAL, SINGLE LEVEL 03/05/2018 INJECTION TRANSFORAMINAL EPIDURAL LUMBAR OR SACRAL performed by Wong Cornelius DO at OR [facility] MISCELLANEOUS ORDER ([facility] ONLY) 2001 torn retina repair at [facility] EYE NEEDLE BIOPSY OF LIVER 03/23/10 [...] by Beau Leroy Jr., MD at OR [facility] RIGHT HEART CATH W/ O2 SAT AND CO Right 06/30/2020 RIGHT HEART CATH W/ O2 SAT AND CO performed by Gwyn Akins DO at CARDIAC LABS [facility] SACROILIAC JOINT INJECT W/GUIDANCE 12/25/2017 INJECTION SACROILIAC JOINT performed by Wong Cornelius DO at OR [facility] Observations Consciousness: Alert (12/24/221129) Orientation: Oriented times 4 (12/24/221129) Psychosocial: Patient can communicate basic needs;Patient can converse in a social setting (12/24/221129) Sitting Posture: Normal (12/24/221129) Standing Posture: Normal (12/24/221129) Pain: No complaints of pain LOWER EXTREMITY ASSESSMENT: LE MMT: WFL LE ROM: WFL P.T. Bed Mobility Supine-Sit: Independent (12/24/221129) Sit-Supine: Independent (12/24/221129) Transfers Sit-Stand: Modified Independent (12/24/221129) Stand-Sit: Modified Independent (12/24/221129) Ambulation Assist: Modified Independent (12/24/221129) Distance Ambulated (feet): 75 (12/24/221129) Assistive Device: No device (12/24/221129) Ambulatory safety: Patient verbalizes insight of current deficits (12/24/221129) Balance Sit (Static): Good (12/24/221129) Sit (Dynamic): Good (12/24/221129) Stand (Static): Good (12/24/221129) Stand (Dynamic): (Fair(+)) (12/24/221129) Patient and or Family Goal(s): to get well and to return home Patient Education Safety Awareness: Patient verbalizes insight of current deficits;Patient demonstrates carryover of insight during functional tasks;Patient can communicate basic needs (12/24/221129) Preferred learning method: Combination (12/24/221129) Barriers to learning: None (12/24/221129) Method of Education: Verbalized to patient;Patient demonstrated task (12/24/221129) Topic of Education: Goals/plan of care Method of Education: Verbal discussion and explanation provided to patient: verbalized understanding and or agreement of this information Treatment Provided: Gait Training 10 minutes: gait training with no device Alarm Status Patient positioned in: Bed (12/24/22 1130) With: Call pan in reach (12/24/22 113) Assessment: Jazmín Blevins is a 57 year old female admitted to [facility] with anemia. Pt was able to transfer and ambulate independently. While not at 100%, pt reports feeling much better and voiced noconcerns with mobility. Pt presents with no functional/mobility deficits requiring continued PT in the acute care setting. Goals: None Treatment Plan: Discontinue from Physical Therapy Services AM-PAC Score With Stairs : 24 (12/24/22 1130) Some items of AM-PAC not tested due to overall medical status, grades determined based on clinical judgement of how patient may do at this time had they been assessed. * Crystal Mcneil, RDN - 12/23/2022 1:14 PM EDT CLINICAL NUTRITION CONSULT NOTE [address] [address] Name: Jazmín Blevins Location: [facility] [id number] Date: 12/23/2022 Time: 1:15 PM How patient was identified (select 2): Medical record number and date Discussed in interdisciplinary rounds: No Reason for RDN intervention: extended LOS NUTRITION ASSESSMENT: Primary Diagnosis: 57 year old female with a history of cirrhosis admitted for shock, NAZARIO, and anemia. Other pertinent information: Patient was off of the unit for a colonoscopy at the time of assessment this morning. She has been NPO or on a clear liquid diet since admission on 12/21. No recent nutrition history available at this time. Per chart review her weight appears fairly stable, though she isat risk for malnutrition given her cirrhosis diagnosis. Food/Nutrition-Related History Diet: NPO Previously followed diet: Unknown Food Allergies/Intolerances: None known Adult Energy Intake: Unable to obtain at present time Percentage of meal intake: NPO Oral Nutrition Supplement (ONS): None Pertinent medications/vitamins/minerals/supplements: Isolyte-S at 25 mL/hr, Levoxyl, Prilosec, Phos-NaK, KCl Pertinent Biochemical Data: Electrolytes being supplemented. Latest Reference Range & Units 12/23/22 06:29 Potassium 3.5 - 5.1 mmol/L 3.2 (L) Phosphorus 2.5 - 4.8 mg/dL 2.2 (L) Nutrition-Focused Physical Findings: Appearance: Thin (based on BMI) Respiratory support: LFNC Nasal/Oral: No issues identified Digestive: No issues identified Last Bowel Movement: 12/23/22 (12/23/22 09) Cognition: Awake, alert Skin: Intact Enteral access: None Nutrition Focused Physical Exam: Nutrition Focused Physical Exam deferred at this time due to patient being off of the unit. Will attempt to complete exam upon follow-up. Edema Location: Generalized (12/22/221999) Edema Assessment: +1 - Description (12/22/221999) Anthropometrics Measurements Height: 167.6 cm (5' 6") (12/21/22 010) Admission weight: 57.7 kg Weight: 53.1 kg (117 lb 1 oz) (12/22/22 08) BMI: 20.54 (12/21/2299) Usual Body Weight: 48-53 kg per EHR [place] weight: 61 kg [place] Weight Based on BMI: 21.7 Interpretation of Weight Change: Change likely secondary to fluid Nutrition Prescription: Energy needs: 30-35 Kcal/kg Kcal/day: 6491-9236 Based on last known usual weight (48 kg) Protein needs: 1.3-1.5 gm/kg Protein: 62-72 Based on last known usual weight (48 kg) Fluid needs: 5258-5125 mL/hr (given history of ascites) Malnutrition: Adult Malnutrition Classification: Unable to determine (12/23/22 1328) NUTRITION DIAGNOSIS: Increased nutrient needs (kcal, protein) related to cirrhosis as evidenced by the known metabolic demands of the disease. Goals: Diet advancement or initiation of enteral/parenteral nutrition within 24-48 hours. NUTRITION INTERVENTION/PLAN: Continue to monitor NPO/clear liquid status Clinical Nutrition Recommendations: Diet: Advance diet when clinically feasible Recommend a 2 gm Sodium Restricted diet as tolerated. NUTRITION MONITORING AND EVALUATION: NPO status/diet advancement and tolerance Lab values warranting change with MNT Weight for trends Plan follow-up: Will follow and adjust nutrition plan of care as medical condition requires. Please contact for change(s) in patient condition requiring earlier intervention. Crystal Mcneil, MS, RDN, LDN, CNSC Clinical Dietitian [employer] | Extension [phone] * Laura Keller, PT - 12/22/2022 10:08 AM EDTAssociated Order(s): ADULT PHYSICAL THERAPY CONSULT IP GENERAL BEDREST EVALUATION - Physical Therapy [address] [address] Name: Jazmín Blevins Location: [facility] A548/ Date: 12/22/2022 Time: 10:42 AM Jazmín Blevins is a/an 57 year old female. Patient Status: Inpatient Insurance: Payor: [employer] MEDICARE ADVANTAGE Plan: [employer] MEDICARE ADVANTAGE PPO Product Type: *No Product type* Patient Seen: at bedside, nursing Radha cleared patient for therapy Patient Identified By: Name, ID Band and Date Diagnosis: Shock (12/22/221007) Status of treatment: Bedrest evaluation completed (12/22/221007) Orders: PT evaluation and treatment;OOB (12/22/221007) Weight Bearing Status: Weight bearing as tolerated (12/22/221007) Precautions: Alarms;Falls;Safety;Oxygen;Hilario (O2 NC from 2L to 5 L by RN) (12/22/221007) Total Treatment Time--free text: 13 minutes (12/22/221007) Past Medical History: Past Medical History: Diagnosis [...] performed by Naomie Magallanes MD at ENDOSCOPY [facility] COLONOSCOPY, DIAGNOSTIC (RECTUM) N/A 05/10/2016 COLONOSCOPY FLEXIBLE PROXIMAL DIAGNOSTIC performed by Jeffrey Weber MD at ENDOSCOPY [facility] COLONOSCOPY, DIAGNOSTIC (RECTUM) N/A 05/11/2022 COLONOSCOPY FLEXIBLE PROXIMAL DIAGNOSTIC performed by Jeffrey Weber MD at ENDOSCOPY [facility] EGD, FLEXIBLE, DIAGNOSTIC 05/30/2012 UPPER GI ENDOSCOPY DIAGNOSTIC performed by Cipriano Butler MD at ENDOSCOPY [facility] EGD, FLEXIBLE, DIAGNOSTIC 12/19/2012 UPPER GI ENDOSCOPY DIAGNOSTIC performed by Krupa Robledo DO at ENDOSCOPY [facility] EGD, FLEXIBLE, DIAGNOSTIC N/A 03/21/2014 ESOPHAGOGASTRODUODENOSCOPY (EGD), FLEXIBLE, TRANSORAL, DIAGNOSTIC performed by Axel English [facility] ENDOSCOPY [facility] EGD, FLEXIBLE, DIAGNOSTIC N/A 12/18/2014 ESOPHAGOGASTRODUODENOSCOPY (EGD), FLEXIBLE, TRANSORAL, DIAGNOSTIC performed by Jeffrey Weber MD at ENDOSCOPY [facility] EGD, FLEXIBLE, DIAGNOSTIC N/A 05/10/2016 ESOPHAGOGASTRODUODENOSCOPY (EGD), FLEXIBLE, TRANSORAL, DIAGNOSTIC performed by Jeffrey Weber MD at ENDOSCOPY [facility] EGD, FLEXIBLE, DIAGNOSTIC 06/11/2018 hiatal hernia, repeat 3 yrs/ESOPHAGOGASTRODUODENOSCOPY (EGD), FLEXIBLE, TRANSORAL, DIAGNOSTIC performed by Adelaida Sood MD at ENDOSCOPY [facility] EGD, FLEXIBLE, DIAGNOSTIC N/A 11/01/2019 ESOPHAGOGASTRODUODENOSCOPY (EGD), FLEXIBLE, TRANSORAL, DIAGNOSTIC performed by Michael Bar MD at ENDOSCOPY [facility] EGD, FLEXIBLE, DIAGNOSTIC N/A 05/11/2022 ESOPHAGOGASTRODUODENOSCOPY (EGD), FLEXIBLE, TRANSORAL, DIAGNOSTIC performed by Jeffrey Weber MD at ENDOSCOPY [facility] EXC BREAST LESION RADMARK Right 05/09/2017 EXCISION OF BREAST LESION RADIOLOGICAL MARKER performed by Vicky Bahena MD at OR [facility] INFORMATION 1998 bone spur/cyst & ganglia removal left foot x2 INJECT DX/THER SUBSTANCE INTERLAMINAR LUMBAR/SACRAL W IMAGE GUIDE 07/22/2021 INJECTION SPINE LUMBAR OR SACRAL performed by Wong Cornelius DO at OR [facility] INJECT DX/THER SUBSTANCE INTERLAMINAR LUMBAR/SACRAL W IMAGE GUIDE 11/16/2021 INJECTION SPINE LUMBAR OR SACRAL performed by Wong Cornelius DO at OR [facility] INJECT DX/THER SUBSTANCE INTERLAMINAR LUMBAR/SACRAL W IMAGE GUIDE 06/15/2022 INJECTION SPINE LUMBAR OR SACRAL performed by Wong Cornelius DO at OR [facility] INJECT DX/THER SUBSTANCE INTERLAMINAR LUMBAR/SACRAL W IMAGE GUIDE 11/09/2022 INJECTION SPINE LUMBAR OR SACRAL performed by Wong Cornelius DO at OR [facility] IR BIOPSY 07/02/2012 TRANSCATHETER BIOPSY performed by Fabian Larry MD at RADIOLOGY [facility] L-/S-SPINE PARAVERTEBRAL FACET INJ,1 LEVEL 02/15/2018 L-/S-SPINE PARAVERTEBRAL FACET INJ, 1 LEVEL performed by Wong Cornelius DO at OR [facility] L-/S-SPINE PARAVERTEBRL FACET INJ,2 LEVELS 02/15/2018 L-/S-SPINE PARAVERTEBRAL FACET INJ, 2 LEVELS performed by [place] Brandi Cornelius DO at OR [facility] LAPAROSCOPY; CHOLECYSTECTOMY 03/23/10 Dr Ingram LAPAROSCOPY;RMV ADNEXAL STRUCT Bilateral 03/19/2021 LAPAROSCOPIC OOPHORECTOMY AND OR SALPINGECTOMY performed by Randi Mukherjee DO at OR [facility] LIGATE/CUT OVIDUCT(S) 1993 Tubal Ligation LUMBAR / SACRAL EPIDURAL, SINGLE LEVEL 03/05/2018 INJECTION TRANSFORAMINAL EPIDURAL LUMBAR OR SACRAL performed by Wong Cornelius DO at [facility] MISCELLANEOUS ORDER ([facility] ONLY) 2001 torn retina repair at [facility] EYE NEEDLE BIOPSY OF LIVER 03/23/10 [...] by Beau Leroy Jr., MD at OR [facility] RIGHT HEART CATH W/ O2 SAT AND CO Right 06/30/2020 RIGHT HEART CATH W/ O2 SAT AND CO performed by Gwyn Akins DO at CARDIAC LABS [facility] SACROILIAC JOINT INJECT W/GUIDANCE 12/25/2017 INJECTION SACROILIAC JOINT performed by Wong Cornelius DO at OR [facility] Subjective: Patient supine in bed upon PT arrival. Alert and agreeable to therapy. Social History/Disposition Lives with: Spouse (12/22/221007) Assistance available: Yes (12/22/221007) Dwelling type: Single story home (with finished basement) (12/22/221007) Entry steps: 3 (12/22/221007) Inside steps: 10 - 15 (to basement) (12/22/221007) Bedroom location: 1st floor (12/22/221007) Bath location: 1st floor full bath;Basement (12/22/221007) Prior Level of Function Reported by: Patient (12/22/221007) Ambulation: Ambulatory without device (12/22/221007) Devices at home: No device (12/22/221007) Observations Consciousness: Alert (12/22/221007) Orientation: Oriented times 4 (12/22/221007) Psychosocial: Patient can converse in a social setting;Patient can communicate basic needs (12/22/221007) Other Findings: Yes (12/22/221007) Findings: Light touch sensation (12/22/221007) Light Touch Sensation Results: Intact;LLE;RLE (12/22/221007) Pain: Patient has complaints of pain. Pain located back and stomach. 08/17 Staff Notified Range of Motion Range of Motion: WNL (12/22/221007) Strength Assessment Strength Assessment: WNL (4/5 B/L LE) (12/22/221007) Patient and or Family Goal(s): to get well and to return home Patient Education Review of Precautions: Safety;Fall (Role of PT) (12/22/221007) Safety Awareness: Patient verbalizes insight of current deficits;Patient demonstrates carryover of insight during functional tasks;Patient can communicate basic needs (12/22/221007) Preferred learning method: Combination (12/22/221007) Barriers to learning: Medical Status (12/22/221007) Method of Education: Verbalized to patient;Demonstrated to patient (12/22/221007) Topic of Education: Safety with mobility and Goals/plan of care Method of Education: Verbal discussion and explanation provided to patient: verbalized understanding and or agreement of this information and demonstrated the exercise and or task Demonstrated the above task to patient: verbalized understanding and or agreement of this information and demonstrated the exercise and or task Treatment Provided: Evaluation Moderate Complexity 13 minutes - 62236: Patient was cooperative and pleasant during treatment session. Moderate complexity evaluation performed and 1-2 personal factorsor comorbidities were identified that will impact plan of care, including history of COPD and history of cirrhosis. Patient presents with limitations in strength, which will impact plan of care. These limitations will be addressed by the goals set for this patient. Alarm Status Patient positioned in: Bed (12/22/221007) With: Bed alarm intact and functioning and call pan in reach (12/22/221007) Treatment Status: Treatment at bedside (12/22/221007) Goals: Increase Strength of: B/L LE by 1/2-1 muscle grade Assess out of bed when able and appropriate Time Frame: 8 visits Assessment: Pt is a 57 year old female presenting with shock. Pt was seen on this date for bedrest evaluation only due to respiratory status. Patient was initially on 2L O2 however when patient rolled from her side to her back she de- stated to 82%. Nursing bumped O2 up to 5 L and she still had difficulty maintaining SP02 above 86%. Nursing requested bedrest evaluation only at this time. Patient reported pain in back and stomach rated 5/10, nursing aware. Prior to admission, pt reported living aone story home (3 steps to enter) with her , who is able to assist. Pt reports ambulating independently with no assistive device. During session pt was pleasant. Patient is presenting with decreased strength in B/L LE as listed above. Following session pt positioned in bed with alarm set andcall pan within reach. Pt is presenting with deficits in strength, which are currently impacting their quality of life. Pt would continue to benefit from skilled physical therapy services while inpatient at hospital to reach established goals and address deficits. Discharge recommendations will be made at time of out of bed evaluation. All needs met. Deficits requiring P.T. treatment needs: Weakness;Lower extremity strength (12/22/221007) Equipment Needs: Equipment needs: (TBD) (12/22/221007) Treatment Plan: Strengthening exercises: B/L LE Assess out of bed when able and appropriate Anticipated Frequency (on eval): 1 to 3 times per week (12/22/221007) AM PAC Score with Stairs: AM-PAC assessment not scored at this time due to bedrest only evaluation.Please refer to future AM-PAC calculations of functional mobility as they become available. * Adelaida Stephens, OTR/L - 12/22/2022 9:55 AM EDTAssociated Order(s): ADULT OCCUPATIONAL THERAPY CONSULT IP Bedrest GENERAL EVALUATION - Occupational Therapy [address] [id number] Name: Jazmín Blevins Location: [facility] A548/A Date: 12/22/2022 Time: 9:55 AM Jazmín Blevins is a 57 year old female. Patient Status: Inpatient Insurance: Payor: [employer] MED[employer]ARE ADVANTAGE Plan: [employer] MED[employer]ARE [employer]VANTAGE PPO Product Type: *No Product type* Patient Seen: at bedside, nursing cleared patient for therapy Patient Identified By: Name, ID Band and Date Diagnosis: Anemia Shock (12/22/22954) Status of treatment: Bedrest evaluation completed (12/22/22954) Orders: OT evaluation and treatment (12/22/22954) Weight Bearing Status: Weight bearing as tolerated (12/22/22954) Precautions: Alarms;Falls;Safety;Oxygen;Hilario (12/22/22954) Total Treatment Time: 10 (12/22/22954) Past Medical History: Past Medical History: Diagnosis [...] performed by Naomie Magallanes MD at ENDOSCOPY [facility] COLONOSCOPY, DIAGNOSTIC (RECTUM) N/A 05/10/2016 COLONOSCOPY FLEXIBLE PROXIMAL DIAGNOSTIC performed by Jeffrey Weber MD at ENDOSCOPY [facility] COLONOSCOPY, DIAGNOSTIC (RECTUM) N/A 05/11/2022 COLONOSCOPY FLEXIBLE PROXIMAL DIAGNOSTIC performed by Jeffrey Weber MD at ENDOSCOPY [facility] EGD, FLEXIBLE, DIAGNOSTIC 05/30/2012 UPPER GI ENDOSCOPY DIAGNOSTIC performed by Cipriano Butler MD at ENDOSCOPY [facility] EGD, FLEXIBLE, DIAGNOSTIC 12/19/2012 UPPER GI ENDOSCOPY DIAGNOSTIC performed by Krupa Robledo DO at ENDOSCOPY [facility] EGD, FLEXIBLE, DIAGNOSTIC N/A 03/21/2014 ESOPHAGOGASTRODUODENOSCOPY (EGD), FLEXIBLE, TRANSORAL, DIAGNOSTIC performed by Axel English MDa ENDOSCOPY [facility] EGD, FLEXIBLE, DIAGNOSTIC N/A 12/18/2014 ESOPHAGOGASTRODUODENOSCOPY (EGD), FLEXIBLE, TRANSORAL, DIAGNOSTIC performed by Jeffrey Weber MD at ENDOSCOPY [facility] EGD, FLEXIBLE, DIAGNOSTIC N/A 05/10/2016 ESOPHAGOGASTRODUODENOSCOPY (EGD), FLEXIBLE, TRANSORAL, DIAGNOSTIC performed by Jeffrey Weber MD at ENDOSCOPY [facility] EGD, FLEXIBLE, DIAGNOSTIC 06/11/2018 hiatal hernia, repeat 3 yrs/ESOPHAGOGASTRODUODENOSCOPY (EGD), FLEXIBLE, TRANSORAL, DIAGNOSTIC performed by Adelaida Sood MD at ENDOSCOPY [facility] EGD, FLEXIBLE, DIAGNOSTIC N/A 11/01/2019 ESOPHAGOGASTRODUODENOSCOPY (EGD), FLEXIBLE, TRANSORAL, DIAGNOSTIC performed by Michael Bar MD at ENDOSCOPY [facility] EGD, FLEXIBLE, DIAGNOSTIC N/A 05/11/2022 ESOPHAGOGASTRODUODENOSCOPY (EGD), FLEXIBLE, TRANSORAL, DIAGNOSTIC performed by Jeffrey Weber MD at ENDOSCOPY [facility] EXC BREAST LESION RADMARK Right 05/09/2017 EXCISION OF BREAST LESION RADIOLOGICAL MARKER performed by Vicky Bahena MD at OR [facility] INFORMATION 1998 bone spur/cyst & ganglia removal left foot x2 INJECT DX/THER SUBSTANCE INTERLAMINAR LUMBAR/SACRAL W IMAGE GUIDE 07/22/2021 INJECTION SPINE LUMBAR OR SACRAL performed by Wong Cornelius DO at OR [facility] INJECT DX/THER SUBSTANCE INTERLAMINAR LUMBAR/SACRAL W IMAGE GUIDE 11/16/2021 INJECTION SPINE LUMBAR OR SACRAL performed by Wong Cornelius DO at OR [facility] INJECT DX/THER SUBSTANCE INTERLAMINAR LUMBAR/SACRAL W IMAGE GUIDE 06/15/2022 INJECTION SPINE LUMBAR OR SACRAL performed by Wong Cornelius DO at OR [facility] INJECT DX/THER SUBSTANCE INTERLAMINAR LUMBAR/SACRAL W IMAGE GUIDE 11/09/2022 INJECTION SPINE LUMBAR OR SACRAL performed by Wong Cornelius DO at OR [facility] IR BIOPSY 07/02/2012 TRANSCATHETER BIOPSY performed by Fabian Larry MD at RADIOLOGY [facility] L-/S-SPINE PARAVERTEBRAL FACET INJ,1 LEVEL 02/15/2018 L-/S-SPINE PARAVERTEBRAL FACET INJ, 1 LEVEL performed by Wong Cornelius DO at OR [facility] L-/S-SPINE PARAVERTEBRL FACET INJ,2 LEVELS 02/15/2018 L-/S-SPINE PARAVERTEBRAL FACET INJ, 2 LEVELS performed by [place] Brandi Cornelius DO at OR [facility] LAPAROSCOPY; CHOLECYSTECTOMY 03/23/10 Dr Ingram LAPAROSCOPY;RMV ADNEXAL STRUCT Bilateral 03/19/2021 LAPAROSCOPIC OOPHORECTOMY AND OR SALPINGECTOMY performed by Randi Mukherjee DO at OR [facility] LIGATE/CUT OVIDUCT(S) 1993 Tubal Ligation LUMBAR / SACRAL EPIDURAL, SINGLE LEVEL 03/05/2018 INJECTION TRANSFORAMINAL EPIDURAL LUMBAR OR SACRAL performed by Wong Cornelius DO at OR [facility] MISCELLANEOUS ORDER ([facility] ONLY) 2001 torn retina repair at [facility] EYE NEEDLE BIOPSY OF LIVER 03/23/10 [...] by Beau Leroy Jr., MD at OR [facility] RIGHT HEART CATH W/ O2 SAT AND CO Right 06/30/2020 RIGHT HEART CATH W/ O2 SAT AND CO performed by Gwyn Akins DO at CARDIAC LABS [facility] SACROILIAC JOINT INJECT W/GUIDANCE 12/25/2017 INJECTION SACROILIAC JOINT performed by Wong Cornelius DO at OR [facility] Social History/Disposition Lives with: Spouse (12/22/22954) Assistance available: Yes (12/22/22954) Dwelling type: Single story home (with basement) (12/22/22954) Entry steps: 3 (or 5 - depending on which entry pt goes in) (12/22/22954) Inside steps: 10 - 15 (to basement) (12/22/22954) Bedroom location: 1st floor (12/22/22954) Bath location: 1st floor full bath (12/22/22954) Prior Level of Function Reported by: Patient (12/22/22954) Ambulation: Ambulatory without device (12/22/22954) Grooming: Independent (12/22/22954) Bathing: Independent (12/22/22954) Dressing: Independent (12/22/22954) Feeding: Independent (12/22/22954) Toileting: Independent (12/22/22954) Meal Prep: Independent (12/22/22954) Homemaking: Independent (12/22/22954) Driving: Yes (12/22/22954) Subjective: Pt pleasant and cooperative, agreeable to OT evaluation. Pain: Patient has complaints of pain. Pain located stomach and back. 08/17. Observations Consciousness: Alert (12/22/22954) Orientation: Oriented times 4 (12/22/22954) Psychosocial: Patient can communicate basic needs;Patient can converse in a social setting (12/22/22954) Safety awareness: The Patient verbalizes insight of current deficits. (12/22/22954) Other Findings Light touch sensation: LUE;RUE;Intact (12/22/22954) Coordination: LUE;RUE;Gross motor;Fine motor;Intact (12/22/22954) Current Functional Status: Bilateral Upper Extremity Range of Motion: WNL (12/22/22954) Strength Assessment: (B 3+/5) (12/22/22954) Alarm Status Patient positioned in: Bed (12/22/22954) With: Bed alarm intact and functioning and call pan in reach (12/22/22954) Patient and Family Goals: to get well Patient Education Education Topic: Role of OT;Plan of care goals;Deep breathing techniques (12/22/22954) Review of Precautions: Safety (12/22/22954) Method of Education: Verbalized to patient (12/22/22954) Education Provided to: Patient (12/22/22954) Response to Education: Receptive and agreeable to education (12/22/22954) Barriers to learning: None (12/22/22954) Preferred learning method: Combination (12/22/22954) Treatment Provided: Evaluation Moderate Complexity 10 minutes - 95785: Patient was cooperative and pleasant during treatment session. Moderate complexity evaluation performed and 3-5 activity limitations were identified, including decreased strength. Minimal or moderate modification of the functional task was necessary to complete the evaluation. Assessment: Pt is a 57 yr old female admitted to the hospital on 12/21 for anemia shock. Pt lives with and completed ADL tasks/IADL tasks and functional mobility with independence. Pt seen forOT bedrest evaluation on this date, secondary to oxygen saturations dropping at rest while supine in bed, NELLIE Garcia requested to hold OOB at this time. Pt supine in bed at start of session on 2 L NC oxygen. Pts oxygen saturations noted to decrease to low 80s while at rest in bed. RN titrated pt up to 5 L NC oxygen, and pts saturations continued to maintain in low 80s while supine at rest. Pt educated on breathing techniques. Pt supine in bed with needs met. Pt presents with deficits in UE strength at this time. Pt would benefit from continued OT to work on strength in preparation for completion of self care ADL tasks. Will complete OOB assessment as able and appropriate. Defer discharge recommendations until OOB assessment is completed. Deficits Requiring O.T. Treatment: Deficits requiring O.T. treatment needs: Weakness;Upper extremity strength (12/22/22954) Goals: Strength Improve bilateral UE strength by 1/2 grade Complete OOB and self care assessment as able Goal Time Frame: 10 visits Treatment Plan: Upper extremity strengthening Anticipated Frequency (on eval): 1 to 3 times per week (12/22/22954) AM-PAC AM-PAC assessment not scored at this time due to bedrest evaluation. Please refer to future AM-PAC calculations of functional mobility as they become available. 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 Patient was transferred from [facility] yesterday for evaluation of acute shock, NAZARIO andanemia. She presented to the hospital with complaints of sharp shooting neck pain that radiated down her spine and associated dizziness. Additionally, around 4-5 prior to presentation she reports significant LE edema and associated 20 lbs weight gain. On arrival to [facility], she was noted have hb 5.1 (baseline 8-9.0), Creat 2.6 (baseline 0.9), Tb 2.0 (baseline 0.5 -0.9). CT abdomen pelvis was obtainedand negative of acute luminal bleeding but reported mild peripancreatic fluid collection. Pt received IVF and 2 Units PRBC but continued to remain hypotensive necessitating pressor support and was tra nsferred to [facility] ICU overnight for further evaluation. Per patient, she has been in her normal state of health. No hematemesis, hematochezia, melena reported. She has some mild GERD symptoms and issues with appetite but otherwise has been compliant with all of her diuretic and immunosuppressant therapies. No ETOH use, No NSAID/Aspirin use. Former smoker, but does admit to sneaking 5 cigarettes last week. No other drug use. Patient was to be evaluatedby Liver transplant team but consideration not possible due to development of pulmonary hypertension. HISTORY: Past Medical History: Past Medical History: [...] performed by Naomie Magallanes MD at ENDOSCOPY [facility] COLONOSCOPY, DIAGNOSTIC (RECTUM) N/A 05/10/2016 COLONOSCOPY FLEXIBLE PROXIMAL DIAGNOSTIC performed by Jeffrey Weber MD at ENDOSCOPY [facility] COLONOSCOPY, DIAGNOSTIC (RECTUM) N/A 05/11/2022 COLONOSCOPY FLEXIBLE PROXIMAL DIAGNOSTIC performed by Jeffrey Weber MD at ENDOSCOPY [facility] EGD, FLEXIBLE, DIAGNOSTIC 05/30/2012 UPPER GI ENDOSCOPY DIAGNOSTIC performed by Cipriano Butler MD at ENDOSCOPY [facility] EGD, FLEXIBLE, DIAGNOSTIC 12/19/2012 UPPER GI ENDOSCOPY DIAGNOSTIC performed by Krupa Robledo DO at ENDOSCOPY [facility] EGD, FLEXIBLE, DIAGNOSTIC N/A 03/21/2014 ESOPHAGOGASTRODUODENOSCOPY (EGD), FLEXIBLE, TRANSORAL, DIAGNOSTIC performed by Mary Alejandro ENDOSCOPY [facility] EGD, FLEXIBLE, DIAGNOSTIC N/A 12/18/2014 ESOPHAGOGASTRODUODENOSCOPY (EGD), FLEXIBLE, TRANSORAL, DIAGNOSTIC performed by Jeffrey Weber MD at ENDOSCOPY [facility] EGD, FLEXIBLE, DIAGNOSTIC N/A 05/10/2016 ESOPHAGOGASTRODUODENOSCOPY (EGD), FLEXIBLE, TRANSORAL, DIAGNOSTIC performed by Jeffrey Weber MD at ENDOSCOPY [facility] EGD, FLEXIBLE, DIAGNOSTIC 06/11/2018 hiatal hernia, repeat 3 yrs/ESOPHAGOGASTRODUODENOSCOPY (EGD), FLEXIBLE, TRANSORAL, DIAGNOSTIC performed by Adelaida Sood MD at ENDOSCOPY [facility] EGD, FLEXIBLE, DIAGNOSTIC N/A 11/01/2019 ESOPHAGOGASTRODUODENOSCOPY (EGD), FLEXIBLE, TRANSORAL, DIAGNOSTIC performed by Michael Bar MD at ENDOSCOPY [facility] EGD, FLEXIBLE, DIAGNOSTIC N/A 05/11/2022 ESOPHAGOGASTRODUODENOSCOPY (EGD), FLEXIBLE, TRANSORAL, DIAGNOSTIC performed by Jeffrey Weber MD at ENDOSCOPY [facility] EXC BREAST LESION RADMARK Right 05/09/2017 EXCISION OF BREAST LESION RADIOLOGICAL MARKER performed by Vicky Bahena MD at OR [facility] INFORMATION 1997 bone spur/cyst & ganglia removal left foot x2 INJECT DX/THER SUBSTANCE INTERLAMINAR LUMBAR/SACRAL W IMAGE GUIDE 07/22/2021 INJECTION SPINE LUMBAR OR SACRAL performed by [place] Wander Cornelius DO at OR [facility] INJECT DX/THER SUBSTANCE INTERLAMINAR LUMBAR/SACRAL W IMAGE GUIDE 11/16/2021 INJECTION SPINE LUMBAR OR SACRAL performed by [place] Wander Cornelius DO at OR [facility] INJECT DX/THER SUBSTANCE INTERLAMINAR LUMBAR/SACRAL W IMAGE GUIDE 06/15/2022 INJECTION SPINE LUMBAR OR SACRAL performed by Wong Wander Cornelius DO at OR [facility] INJECT DX/THER SUBSTANCE INTERLAMINAR LUMBAR/SACRAL W IMAGE GUIDE 11/09/2022 INJECTION SPINE LUMBAR OR SACRAL performed by [place] Wander Cornelius DO at OR [facility] IR BIOPSY 07/02/2012 TRANSCATHETER BIOPSY performed by Fabian Larry MD at RADIOLOGY [facility] L-/S-SPINE PARAVERTEBRAL FACET INJ,1 LEVEL 02/15/2018 L-/S-SPINE PARAVERTEBRAL FACET INJ, 1 LEVEL performed by [place] Brandi Cornelius DO at OR [facility] L-/S-SPINE PARAVERTEBRL FACET INJ,2 LEVELS 02/15/2018 L-/S-SPINE PARAVERTEBRAL FACET INJ, 2 LEVELS performed by [place] Brandi Cornelius DO at OR [facility] LAPAROSCOPY; CHOLECYSTECTOMY 03/23/10 Dr Ingram LAPAROSCOPY;RMV ADNEXAL STRUCT Bilateral 03/19/2021 LAPAROSCOPIC OOPHORECTOMY AND OR SALPINGECTOMY performed by Randi Mukherjee DO at [facility] LIGATE/CUT OVIDUCT(S) 1993 Tubal Ligation LUMBAR / SACRAL EPIDURAL, SINGLE LEVEL 03/05/2018 INJECTION TRANSFORAMINAL EPIDURAL LUMBAR OR SACRAL performed by Wong Cornelius DO at OR [facility] MISCELLANEOUS ORDER ([facility] ONLY) 2002 torn retina repair at [facility] EYE NEEDLE BIOPSY OF LIVER 03/23/10 [...] by Beau Leroy Jr., MD at OR [facility] RIGHT HEART CATH W/ O2 SAT AND CO Right 06/30/2020 RIGHT HEART CATH W/ O2 SAT AND CO performed by Gwyn Akins DO at CARDIAC LABS [facility] SACROILIAC JOINT INJECT W/GUIDANCE 12/25/2017 INJECTION SACROILIAC JOINT performed by Wong Cornelius DO at OR [facility] Social History: Social History Tobacco Use Smoking [...] Age of Onset Heart Disorder Mother 1st [place] age 58 Stroke Mother Neurological Disorder Mother [...] Problems Grandmother (Maternal) Heart Disorder Grandfather (Maternal) [place] Stroke Grandfather (Maternal) Breast Cancer Grandmother (Paternal) Neurological Disorder Aunt (Unspecified) aneurysm Breast Cancer Aunt (Paternal) X4 Allergies: Dilaudid [hydromorphone hcl] and Environmental ROS: ROS per HPI, all other systems negative. PHYSICAL EXAMINATION: Most Recent Vital Signs: BP: 86 mmHg/50 mmHg (12/21/22 0800) Pulse: 63 (12/21/22 0800) Temp: 36.72 C (12/21/22 0800) Resp: 16 (12/21/22 0800) SpO2: 93 % (09/13/23 0800) Vital Signs Last 24 Hours: Systolic BP: Most Recent Systolic BP Av mmHg Min: 81 mmHg Max: 107 mmHg Temperature: Most Recent Temperature Av.6 C Min: 36.5 C Max: 36.72 C Pulse: Pulse Av.4 Min: 54 Max: 78 Respirations: Resp Av.3 Min: 7 Max: 17 SpO2: SpO2 Av.4 % Min: 87 % Max: 98 % Constitutional: no acute distress, laying in bed, alert and oriented HEENT: normal: normocephalic, atraumatic; no masses, tenderness, or adenopathy Eyes: no scleral icterus, redness, or injection Neck: supple, normal range of motion CV: normal rate and rhythm, no murmur, gallops or rub Chest: normal respiratory effort, lungs clear to auscultation with equal chest exertion Abdomen: soft, normal bowel sounds, no mass, no tenderness Extremities: no edema Lymph Nodes: no adenopathy, no axillary adenopathy noted, no cervical adenopathy noted, no inguinaladenopathy noted Skin: warm and dry, no rashes Neuro: oriented to person, place, and time Psych: normal mood and affect, nonsuicidal, judgement normal, memory normal LABS: Labs reviewed. Lab results within last 7 days (see chart for full results) Units 12/21/22 0433 12/21/22 0241 12/20/22 1701 HGB g/dL 7.2* 7.6* 5.1* Lab results within last 7 days (see chart for full results) Units 12/21/22 0433 12/21/22 0125 12/20/22 1701 Sodium mmol/L 133* 132* 130* Potassium mmol/L 3.5 3.0* 3.1* Chloride mmol/L 97* 97* 93* CO2 mmol/L 21* 22 25 BUN mg/dL 29* 31* 35* Creatinine mg/dL 2.0* 2.1* 2.6* MELD 3.0: 23 at 12/21/2022 4:33 AM Calculated from: Serum Creatinine: 2.0 mg/dL at 12/21/2022 4:33 AM Serum Sodium: 133 mmol/L at 12/21/2022 4:33 AM Total Bilirubin: 2.0 mg/dL at 12/21/2022 4:33 AM Serum Albumin: 3.0 g/dL at 12/21/2022 4:33 AM INR(ratio): 1.2 at 12/21/2022 1:25 AM Age at listing (hypothetical): 57 years Sex: Female at 12/21/2022 4:33 AM EGD 05/2022 Extrinsic narrowing of the esophagus at the UES, 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 - Grade I and small (< 5 mm) esophageal varices without high risk features. - Z-line irregular, 37 cm from the incisors. - 3 cm hiatal hernia. - Gastroesophageal flap valve classified as Hill Grade IV (no fold, wide open lumen, hiatal hernia present). - Nodule found in the duodenum at the area of the minor papilla. Evaluated with duodenoscope and biopsied to r/o adenoma. COLONOSCOPY 05/2022 Two 3 to 6 mm polyps in the ascending colon, removed with a hot snare. Resected and retrieved. - Two 4 to 14 mm polyps in the transverse colon, removed with a hot snare. Resected and retrieved. Clips (MR conditional) were placed on the 14mm polypectomy site. - Erythematous mucosa in the transverse colon, in the ascending colon and in the cecum consistent with portal colopathy. - Large rectal varices. Retroflexion was not performed IMPRESSION: Jazmín Blevins is a(n) 57 year old female with pmhx of Bx proven AIH / Compensated Cirrhosis MELD 25 (G1EV, 2022, on nadalol, PHG), chronic COPD, tobacco user, pulmonary hypertension,SLE, hypothyroidism presenting from [facility] for evaluation of acute blood loss anemia, hypotensive shock and NAZARIO. She is currently in the ICU requiring 8 mcg of norepinephrine and has received 2 units PRBCs. Based on hemoglobin trend it appears she has acute on chronic anemia. CT demonstrates no concern for acute intraabdominal cause of anemia. She has no evidence of neris bleeding, however will needevaluation with EGD given ongoing shock state. DDX: variceal bleeding (most likely) vs PUD vs gastritis vs dieulafoy vs AVMs RECOMMENDATIONS/PLAN: - Keep patient NPO for procedure - given ongoing hypotension and pressor use, will need EGD at bedside/sedation in coordination withM team - Trend CBC, transfuse if Hb <7 - Continue IV PPI BID I have discussed the case with my attending, Dr Magallanes I saw and evaluated the patient today. I have reviewed the trainee note and agree. documented in this encounter Nursing Notes * Analilia Lara RN - 12/30/2022 12:30 PM EDT NURSING AMBULATION OXYGEN TEST [address] [address] Name: Jazmín Blevins Location: [facility] B727/A Date: 12/30/2022 Time: 12:32 PM Date of test: 12/30/2022 (needs to be completed within 48 hours of discharge) O2 saturation on room air at rest: 84 % O2 saturation at rest is less than or equal to 88 %: yes; O2 was applied at 2 liters nasal cannula to improve saturations to 90 % while at rest O2 saturation on room air during ambulation: did not ambulate on room air % O2 saturation during ambulation is less than or equal to 88 %: yes; O2 was applied at 2 liters nasal cannula to improve saturations to 90 % while ambulating * Shivani Hanks RN - 12/28/2022 5:22 PM EDT I agree with assessment/charting by Reggie Burns RN. * RIVAS Cota - 12/27/2022 1:51 PM EDT NURSING AMBULATION OXYGEN TEST [address] [address] Name: Jazmín Blevins Location: [facility] B727/A Date: 12/27/2022 Time: 1:51 PM Date of test: 12/27/2022 O2 saturation on 4L at rest: 91% O2 Dropped to 83% on 4L getting up out of bed Put up to 6L to recover to 91% Dropped back down to 4L to ambulate after recovered O2 saturation on 4L during ambulation 10ft: 84% O2 saturation on 6L during ambulation 10ft: 87% O2 saturation during ambulation is less than or equal to 88 %: yes; O2 was applied at 8 liters nasal cannula to improve saturations to 91 % while ambulating 20ft * Zia Medeiros RN - 12/26/2022 1:48 PM EDT SIX-MINUTE WALK (AMBULATORY) PULSE OXIMETRY PROCEDURE NOTE - RESPIRATORY CARE SERVICES [address] [address] Name: Jazmín Blevins Location: [facility] B727/A Date: 12/26/2022 Time: 1:49 PM Date and Time of Procedure: 12/26/2022 1200 Distances Scale: [facility] Hernandez = 90 Feet East Hernandez = 120 Feet West Hernandez = 120 Feet North Hernandez = 120 Feet Dyspnea Scale: 0 = None 1 = Mild 2 = Moderate 3 = Severe Time [minute(s)] SpO2 [%] Heart Rate [beats/minute] Distance [feet] O2 [liters/minute] Dyspnea Comments Pre 1200 84 68 0 RA No Standing at bedside 1205 87 72 4L No 1207 87 74 6L No 1210 92 70 5L No Resting in bed Post-Rest Note: Oxygen desaturation studies should last for at least 6 minutes with SpO2s documented every 30- 60 seconds Summary: patient wears oxygen at HS at home 3L NC. Denies any oxygen use during the day at home. Patient oxygen saturation requirement increased with ambulation. * Nallely Smith RN - 12/23/2022 10:16 PM EDT Dual Licensed Skin Assessment completed by Nallely Smith RN and Ewa Montaño RN. The patient is/has a N/A Skin Breakdown (includes non blanchable erythema): No * Elvira Good RN - 12/23/2022 9:17 PM EDT IN-HOUSE TRANSFER SENDING UNIT - NURSING [address] [address] Name: Jazmín Blevins Location: [facility] B7/A Date: 12/23/2022 Time: 9:17 PM Pertinent information upon transfer pmhx and presenting problem and updates Isolation: None Transferring nursing unit: [facility] Vital signs: BP: 122 mmHg/64 mmHg (12/23/221999) Pulse: 75 (12/23/221999) Temp: 36.83 C (12/23/221999) Resp: 19 (12/23/221999) SpO2: 90 % (12/23/221999) From room 548 to 727A Means of transfer: wheelchair Family and/or significant other notified of transfer: yes Belongings being sent with patient: glasses, jewelry, cell phone, cell phone upholsterer helper, clothing/shoes, and transferred with patient (comment): Verbal SBAR report given to: NELLIE Browning * Keyshawn Ozuna RN - 12/23/2022 1:05 PM EDT DISCHARGE PROGRESS NOTE - ENDOSCOPY [address] [address] Name: Jazmín Blevins Location: ENDO [facility] HFAM/Endo Date: 12/23/2022 Time: 1:05 PM Patient is discharged under the care of : patient transport Report called to Inpatient unit MSICU 548A, NELLIE Low Means of transportation: bed Bronchoscopy: N/A Oxygen support: Yes - Patient placed back on portable O2 tank at 2 liter prior to Patient Transports arrival. Oxygen tank checked for appropriate level of oxygen storage. * Keyshawn Ozuna RN - 12/23/2022 1:04 PM EDT Seen by anesthesia, may be discharged. * Keyshawn Ozuna RN - 12/23/2022 12:[address] Reinoso at bedside ot discuss procedure with patient. Per verbal order, the physician has examined the patient, prescribed and verified the charted medication, and certified that she is recovered and may return to the nursing brady. * Keyshawn Ozuna RN - 12/23/2022 12:36 PM EDT Patient sitting up in stretcher. Remains NPO. * Poppy Knutson RN - 12/23/2022 12:23 PM EDT Specimen(s) and location(s) verified with physician post procedure 12:23 PM Poppy Knutson RN * Poppy Knutson RN - 12/23/2022 12:01 PM EDT Procedure being completed under general anesthesia. Please see anesthesia record for medications and vital signs. * Chioma Richardson RN - 12/23/2022 10:31 AM EDT Patient does not meet criteria for testing. * Maranda Rangel RN - 12/23/2022 10:24 AM EDT 1015 Patient off floor to endoscopy via bed with RN * Blayne Page RN - 12/21/2022 6:32 AM EDT Dual Licensed Skin Assessment completed by Mikhail Page RN and Cherelle Rosales RN. The patient is/has a N/A Skin Breakdown (includes non blanchable erythema): No documented in this encounter Miscellaneous Notes * Ancillary Progress Note - Judith Mason RN - 12/30/2022 2:06 PM EDT ADULT CARE MANAGEMENT - DISCHARGE NOTE [facility]-[address] [place] [address] Name: Jazmín Blevins Location: [facility] B727/A Date: 12/30/2022 Time: 2:07 PM The following coordination of care and discharge plan has been coordinated with the care team, patient, family and/or caregiver according to the patients needs and preferences. Discharge Discharge Insurance considerations verified and completed: Yes (12/30/221405) Second Notice Important Message from Medicare delivered: Yes (12/30/221405) Date Delivered: 12/28/22 (12/30/221405) Discharge Transportation: Family/Friends drive (12/30/221405) Date of scheduled discharge transportation: 12/30/22 (12/30/221405) Patient declined post-hospital transition of care recommendation: N/A (12/30/221405) Final D/C Plan - Complete at time of D/C Final Discharge Plan (Complete only at time of Discharge): Home with Services (12/30/221405) Durable Medical Equipment - Admitted Since 12/21/2022 Service Provider Selected Services Address Phone Fax Patient Preferred Last Updated [employer] Medical Equipment [address] [facility] [place] [phone] -- Judith Mason RN 12/30/2022 1257 Narrative: Patient to be d/c with changed oxygen requirement from [facility]. Patient has portable tank in back of her care. Patient to be transported by family. Patient is agreeable to the above discharge plans. Patient has no further questions or concerns regarding plan of care or discharge. * Care Plan - Sarbjit Fonseca RN - 12/30/2022 4:48 AM EDT Clinical Goal(s): Patient will maintain adequate oxygenation during shift. (12/29/222133) Possible barriers to meeting goal(s)/advancing plan of care: h/o pulmonary HTN Stability of the patient: Moderately stable - low risk of patient condition declining or worsening Summary regarding today's goal(s): Met: tolerated O2 1lpm via nasal cannula. Recommendations: Continue O2 support and close monitoring. * Ancillary Progress Note - Helena Cleveland RDN - 12/29/2022 12:20 PM EDT CLINICAL NUTRITION CONSULT/PROGRESS NOTE [facility]-[address] [place] [address] Name: Jazmín Blevins Location: [facility] B727/A Date: 12/29/2022 Time: 12:20 PM How patient was identified (select 2): Medical record number and Name Discussed in interdisciplinary rounds: Snow Blevins is a 57 year old female being seen for follow-up. Primary Diagnosis: Shock. Other pertinent information: The pt is now on a regular diet. Consuming 50-75% of meals. Denies nausea or vomiting. Last bowel movement was yesterday. No known food allergies. NUTRITION ASSESSMENT: Past medical/surgical history and medications reviewed. Food/Nutrition-Related History Diet: Regular Previously followed diet: Regular Food Allergies/Intolerances: None Adult Energy Intake: Less than 75% of estimated energy requirement for greater than 7 days (moderate, acute illness). Percentage of meal intake: 50-75% Oral Nutrition Supplement (ONS): None Pertinent medications/vitamins/minerals/supplements: Feosol (325 mg), Lasix (60 mg), Lactulose (30 g) TID, Levoxyl, Mag-64 (128 mg), Cellcept (500 mg), Phos-Nak (1 packet) Pertinent Biochemical Data: There are no biochemical abnormalities requiring a change in the nutrition plan of care. Nutrition-Focused Physical Findings: Appearance: Thin Respiratory support: LFNC Nasal/Oral: No issues identified Digestive: Appetite fair Last Bowel Movement: 12/28/22 (12/28/22 1100) Cognition: Awake, alert Skin: Intact Nutrition Focused Physical Exam: NFPE unable to be completed, will attempt at follow up. Edema Location: Generalized (12/22/221999) Edema Assessment: +1 - Description (12/22/221999) Anthropometrics Measurements Height: 167.6 cm (5' 6") (12/21/22 010) Admission weight: 57.7 kg Weight: 52.8 kg (116 lb 8 oz) (12/29/22 0512) BMI: 20.54 (12/21/22 010) Usual Body Weight: 48-53 kg [place] weight: 61 kg [place] Weight Based on BMI: 21.7 Interpretation of Weight Change:Change likely secondary to fluid Weight Comment: Weight decreased since admission, some likely due to fluid. Missing some inputs andoutputs in flowsheets. Nutrition Prescription: Energy needs: 30-35 Kcal/kg Kcal/day: 3260-2591 Based on last known usual weight (48 kg) Protein needs: 1.3-1.5 gm/kg Protein: 62-72 Based on last known usual weight (48 kg) Fluid needs: 1793-2302 mL/hr (given history of ascites) Malnutrition: Adult Malnutrition Classification: Unable to determine (12/23/22 1328) NUTRITION DIAGNOSIS: Increased nutrient needs (calories and protein) related to cirrhosis as evidenced by nutrient demands of the disease. Goals: Patient will consume 75% estimated nutrient needs within 3-5 days. NUTRITION INTERVENTION/PLAN: Continue current care plan Clinical Nutrition Recommendations: Diet: Recommend 2 Gram Sodium Diet NUTRITION MONITORING AND EVALUATION: Nursing documentation flowsheets for percent meal intake Lab values warranting change with MNT Weight for trends Plan follow-up: Will follow and adjust nutrition plan of care as medical condition requires. Please contact for change(s) in patient condition requiring earlier intervention. Helena Cleveland RDN, GEMAN Clinical Nutrition Services Phone: [phone] [place] [facility] * Care Plan - Deanna Matthews RN - 12/29/2022 4:01 AM EDT Clinical Goal(s): pt will have adequate oxygenation (12/28/22 2030) Possible barriers to meeting goal(s)/advancing plan of care: history of COPD, on oxygen at 4 L nasal cannula Stability of the patient: Moderately stable - low risk of patient condition declining or worsening Summary regarding today's goal(s): Met: pt has sp02 >90% Recommendations: To continue sp02 monitoring. * Care Plan - Reggie Burns RN - 12/28/2022 6:30 PM EDT Clinical Goal(s): Pt will have adequate oxygenation (12/28/22 0700) Possible barriers to meeting goal(s)/advancing plan of care: Diuretic Use Stability of the patient: Moderately stable - low risk of patient condition declining or worsening Summary regarding today's goal(s): Met: 12/28/22 Recommendations: Ensure oxygen on at 4L * Ancillary Progress Note - Judith Mason RN - 12/28/2022 8:47 AM EDT CARE MANAGEMENT - ADULT TRANSITION NOTE [facility]-[address] [address] Name: Jazmín Blevins Location: [facility] B727/A Date: 12/28/2022 Time: 8:47 AM Prescription Coverage: Yes (12/21/221455) RX Plan and Comment: CHARLENE, [place] (09/13/23 1456) Risk Stratification Risk Stratification Medical and Behavioral Health Concerns Identified: Chronic disease (12/21/221455) Accessed [employer] to connect patients to social care resources: No (12/21/221455) OBRA or OPTIONS needed for placement: No (12/21/221455) Readmission Risk Score: 19.49 (12/28/22 08) AM-PAC Score With Stairs : 24 (12/27/221930) Caregiver Information Patient Contacts Name Relation Home Work Mobile Bipin Blevins Spouse [phone] Quin Euceda Adult Child [phone] Transition of Care Checklist Transition of Care Checklist (aka Readmission Risk Score) Readmission Risk Score: 19.49 (12/28/22799) Discharge Disposition: Home (12/21/221500) Home or Home w/Home Health: High (18-33%) (12/21/22 150) Outpatient Supply Chain Director: No, not applicable (12/21/221500) Narrative: Patient was discussed during boost this AM. Per IDT, patient is not medically ready. To have pulm see today to see if they can figure anything else out that could be causing the increased oxygen requirement. Patient will be d/c home with spouse and guest experience captain oxygen, but will probably need updated script for o2 on d/c. CM will continue to follow. Anticipated Transportation at Discharge: spouse Patient/Family Expectations: Home with updates [employer] o2 Transition Planning Transition Planning Transition Plan/Considerations: Needs uncertain at this time - Continue monitoring for needs (12/21/221500) Referral to Community Agency : N/A (12/21/221500) Additional Considerations: Care Management will continue to monitor and assist with discharge planning needs * Care Plan - Deanna Matthews RN - 12/28/2022 3:43 AM EDT Clinical Goal(s): pt will have adequate oxygenation (12/27/221930) Possible barriers to meeting goal(s)/advancing plan of care: history of COPD Stability of the patient: Moderately stable - low risk of patient condition declining or worsening Summary regarding today's goal(s): Met: pt has sats >90% at 4 L nasal cannula Recommendations: To continue sp02 monitoring. * Result Encounter Note - Pamela Badillo DO - 12/27/2022 3:41 PM EDT Messaged patient via MyG * Result Encounter Note - Luisito Reinoso DO - 12/27/2022 7:53 AM EDT Will forward to inpatient fellows for review and patient notification. Recall 5 years submitted. * Care Plan - Deanna Matthews RN - 12/27/2022 3:17 AM EDT Clinical Goal(s): pt will have adequate oxygenation (12/26/22 1940) Possible barriers to meeting goal(s)/advancing plan of care: history of COPD; on 5L O2 Stability of the patient: Moderately stable - low risk of patient condition declining or worsening Summary regarding today's goal(s): Met: pt has sp02 >90% Recommendations: To continue sp02 monitoring. * Diagnostic Clarification - Hamzah Mcdonald MD - 12/26/2022 1:19 PM EDT The patient has been diagnosed with acute blood loss anemia with baseline iron deficiency anemia. The patient has been diagnosed with shock of an unknown type. * Ancillary Progress Note - Judith Mason RN - 12/26/2022 11:48 AM EDT CARE MANAGEMENT - ADULT TRANSITION NOTE [facility]-[address] [address] Name: Jazmín Blevins Location: [facility] B727/A Date: 12/26/2022 Time: 11:48 AM Prescription Coverage: Yes (12/21/221455) RX Plan and Comment: Deyanira CHANG (12/21/221455) Risk Stratification Risk Stratification Medical and Behavioral Health Concerns Identified: Chronic disease (12/21/221455) Accessed [employer] to connect patients to social care resources: No (12/21/221455) OBRA or OPTIONS needed for placement: No (12/21/221455) Readmission Risk Score: 21.21 (12/26/22 0800) AM-PAC Score With Stairs : 24 (12/26/22 1000) Caregiver Information Patient Contacts Name Relation Home Work Mobile Bipin Blevins Spouse [phone] Quin E[place]a Adult Child [phone] Transition of Care Checklist Transition of Care Checklist (aka Readmission Risk Score) Readmission Risk Score: 21.21 (12/26/22 0800) Discharge Disposition: Home (12/21/22 150) Home or Home w/Home Health: High (18-33%) (12/21/22 150) Outpatient Supply Chain Director: No, not applicable (12/21/221500) Narrative: Patient was discussed during boost this AM. Per IDT, patient is close to medically ready. Still watching BP. Patient will d/c home with resumption of guest experience captain oxygen when medically ready. No other needs at this time. CM will continue to follow. Anticipated Transportation at Discharge: family Patient/Family Expectations: Home with guest experience captain oxygen Transition Planning Transition Planning Transition Plan/Considerations: Needs uncertain at this time - Continue monitoring for needs (12/21/22 150) Referral to Community Agency : N/A (12/21/221500) Additional Considerations: Care Management will continue to monitor and assist with discharge planning needs * Care Plan - Lianet Leo RN - 12/25/2022 3:53 AM EDT Problem: Pain & Impaired Comfort Goal: Patient's pain & discomfort is manageable. Outcome: Progressing Problem: Safety & Risk for Injury Goal: Patient will remain free from injury. Outcome: Progressing Problem: Knowledge Deficit Goal: Patient & caregiver will demonstrate understanding. Outcome: Progressing Clinical Goal(s): Patient will maintain pain <5/10 during shift (12/25/22 0000) Possible barriers to meeting goal(s)/advancing plan of care: Chronic pain Stability of the patient: Moderately stable - low risk of patient condition declining or worsening Summary regarding today's goal(s): Met: Pain adequately managed on current regimen. Oxygen via nasal cannula titrated up from 3L to 5Lovernight. RN educated patient on importance of using incentive spirometer while awake. Recommendations: Continue pain management and encourage pulmonary toileting. * Diagnostic Clarification - Mary Dickerson MD - 12/23/2022 7:04 PM EDT The patient has been diagnosed with acute on chronic diastolic CHF. * Progress Notes - Non-Billable - Mary Dickerson MD - 12/23/2022 2:15 PM EDT BRIEF NOTE - POST-PROCEDURE CHECK Procedure: Colonoscopy Indication: Acute on chronic anemia S: Examined patient at bedside. She states that she she is feeling good and requests a diet. was also at bedside and updated regarding colonoscopy results. Patient denies any chest pain, palpitation, shortness of breath, nausea, vomiting, diarrhea, abdominal pain. O: BP: 116 mmHg/66 mmHg (12/23/22 1400) Pulse: 56 (12/23/22 1400) Temp: 36.22 C (12/23/22 1255) Resp: 12 (12/23/22 1400) SpO2: 91 % (12/23/22 1400) General: Conscious, alert, cooperative and in no immediate distress HEENT: tongue: Moist Chest: On 6L NC satting 92% Heart: rhythm regular rate normal Abdomen: soft, nondistended, no rebound or guarding, mild generalized tenderness Extremities: Warm, well perfused, edema: none Neuro: alert, oriented to person, place, and time, Glascow Coma Score 15 Assessment: 57 year old year old female who underwent colonoscopy without complications. Angioplastic lesions were found and treated with argon plasma coagulation. One 3 mm polyp removed in the cecum. Rectal varices, nonbleeding internal hemorrhoids found. PLAN: - Diet: Regular - Pain control: Tylenol and tramadol prn - F/U biopsy results from colonoscopy - patient needs repeat colonoscopy in 3 years * Ancillary Progress Note - Viki Dowell RN - 12/23/2022 1:44 PM EDT CARE MANAGEMENT - ADULT TRANSITION NOTE [facility]-[address] [address] Name: Jazmín Blevins Location: [facility] A548/A Date: 12/23/2022 Time: 1:44 PM Prescription Coverage: Yes (12/21/221455) RX Plan and Comment: CHARLENE, [place] (12/21/221455) Risk Stratification Risk Stratification Medical and Behavioral Health Concerns Identified: Chronic disease (12/21/221455) Accessed [employer] to connect patients to social care resources: No (12/21/221455) OBRA or OPTIONS needed for placement: No (12/21/221455) Readmission Risk Score: 20.24 (12/23/221199) AM-PAC Score With Stairs : 16 (12/22/221999) Caregiver Information Patient Contacts Name Relation Home Work Mobile Bipin Blevins Spouse [phone] [employer] Adult Child [phone] Transition of Care Checklist Transition of Care Checklist (aka Readmission Risk Score) Readmission Risk Score: 20.24 (12/23/22 1200) Discharge Disposition: Home (12/21/221500) Home or Home w/Home Health: High (18-33%) (12/21/22 150) Outpatient Supply Chain Director: No, not applicable (12/21/221500) Narrative: CM present for IDT Boost review. Pt had Colonoscopy today with polyp removal from cecum with biopsy. Pt is off pressors and MD waiting for Biopsy results. Pt is being treated for esophageal candidiasis. CM will continue to follow for discharge needs. Anticipated Transportation at Discharge: Family Patient/Family Expectations: Discharge home. Transition Planning Transition Planning Transition Plan/Considerations: Needs uncertain at this time - Continue monitoring for needs (12/21/22 1501) Referral to Community Agency : N/A (12/21/22 1501) Care Management will continue to monitor and assist with discharge planning needs * Communication - Pamela Badillo DO - 12/23/2022 12:50 PM EDT BRIEF NOTE - GASTROENTEROLOGY and HEPATOLOGY Colonoscopy Findings & Specimens: Multiple medium-sized diffuse angiodysplastic lesions without bleeding were found in the transverse colon and in the ascending colon. Coagulation for bleeding prevention using argon plasma at 0.8 liters/minute and 20 arenas was successful. A 3 mm polyp was found in the cecum. The polyp was sessile. The polyp was removed with a cold biopsy forceps. Resection and retrieval were complete. The pathology specimen was placed into Bottle A. A previous clip found in the transverse colon. A localized area of moderately erythematous mucosa was found in the ascending colon. Large, non-bleeding rectal varices were found. Non-bleeding internal hemorrhoids were found during retroflexion. The hemorrhoids were medium-sized. Hemorrhoids were found on perianal exam. Impression: - Multiple non-bleeding colonic angiodysplastic lesions. Treated with argon plasma coagulation (APC). - One 3 mm polyp in the cecum, removed with a cold biopsy forceps. Resected and retrieved. - Previous stent in the transverse colon. - Erythematous mucosa in the ascending colon. - Rectal varices. - Non-bleeding internal hemorrhoids. - Hemorrhoids found on perianal exam. Reccomendations Angioplastic lesions treated with argon plasma coagulation Will follow-up biopsy results Repeat colonoscopy in 3 years for surveillance as recommended on last colonoscopy Continue oral PPI daily Continue fluconazole for treatment of esophageal candidiasis total course of treatment for 14 days OK for diet Thank you for allowing us to participate in the care of this patient. * Ancillary Progress Note - Marisela Berrios, PT - 12/23/2022 10:20 AM EDT Attempted to see pt for out of bed assessment however pt off the floor at endoscopy. Will attempt at a later time when pt is available. * Ancillary Progress Note - Ania Mathews OTR/L - 12/23/2022 10:20 AM EDT Attempted to see pt for OT evaluation, however pt currently off floor. Will attempt as able. * Care Plan - Miriam Holder RN - 12/23/2022 6:55 AM EDT Problem: Pain & Impaired Comfort Goal: Patient's pain & discomfort is manageable. Outcome: Progressing Problem: Safety & Risk for Injury Goal: Patient will remain free from injury. Outcome: Progressing Problem: Risk for Impaired Physical Mobility Goal: Patient will maintain optimal mobility level. Outcome: Progressing Clinical Goal(s): SBP>90 (12/22/221999) Possible barriers to meeting goal(s)/advancing plan of care: possible gi bleed Stability of the patient: Moderately stable - low risk of patient condition declining or worsening Summary regarding today's goal(s): Met: ptmaintained SBP>90 Recommendations: continue to monitor * Progress Notes - Non-Billable - Mk Forde, Medical Student - 12/22/2022 7:02 AM EDT Unless the attending has added an attestation supporting use of this note to document a billable service, the signature of the Licensed Professional on this note only acknowledges the presence of thestudent's note within the patient record and the Licensed Professional's note should be referred tofor clinical information and recommendations. 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 HPI/EVENTS OF NOTE: 12/20: presented to [facility] ED for feet swelling, fatigue, neck pain. Given fluids, 2 units of pRBCs, started on norepinephrine. Hgb 5.1. Transferred to [facility] ICU for management of shock 12/21: underwent EGD, showed scott esophagitis, no acute bleed This morning, the patient says she nausea and abdominal discomfort. Reports one episode of nonbloody, nonbilious emesis overnight. She had a bowel movement yesterday, no diarrhea. Reports no fever, chills, headache, chest pain, or shortness of breath. CONSTITUTIONAL DATA: BP: 101 mmHg/56 mmHg (12/22/22614) Pulse: 53 (12/22/22614) Temp: 36.28 C (12/22/22599) Resp: 12 (12/22/22614) SpO2: 95 % (12/22/22614) Vent Settings: Intake/Output Summary (Last 24 hours) at 12/22/2022 0743 Last data filed at 12/22/2022 0700 Gross per 24 hour Intake 1315.76 ml Output 4095 ml Net -2779.24 ml PHYSICAL EXAM: General: sitting in chair, in no acute distress HEENT: normocephalic, atraumatic, PERRL CV: regular heart rate and rhythm, no murmur appreciated Pulm: clear to auscultation bilaterally, no wheezes Abdomen: soft, diffuse mild tenderness to palpation throughout, no fluid wave elicited Extremities: warm, dry, 1+ edema bilaterally Neuro: alert, orientedx3 Psych: mood and affect appropriate LABORATORY VALUES: Laboratory Values: reviewed. -- Brief labs below include the 7 most recent results over the past week. Blood Gas: Lab results within last 7 days (see chart for full results) Units 12/20/22 1701 pH, Venous units 7.419 pCO2, Venous mmHg 41.5 pO2, Venous mmHg 13.2* Base Excess, Venous mmol/L 2.2* Chemistry Panel: Lab results within last 7 days (see chart for full results) Units 12/22/22 0437 12/21/22 1132 12/21/22 0433 12/21/22 0125 12/20/22 1701 Sodium mmol/L 136 133* 133* 132* 130* Potassium mmol/L 3.5 4.0 3.5 3.0* 3.1* Chloride mmol/L 99 99 97* 97* 93* CO2 mmol/L 27 23 21* 22 25 BUN mg/dL 20 27* 29* 31* 35* Creatinine mg/dL 1.0 1.6* 2.0* 2.1* 2.6* Estimated Glomerular Filtration Rate mL/min 63 38* 29* 28* 21* Glucose mg/dL 157* 153* 114 118 130* Calcium mg/dL 8.2* 7.9* 7.7* 7.9* 8.4 Magnesium mg/dL 2.0 2.9* 1.9 1.6 -- Phosphorus mg/dL 3.3 3.0 3.4 3.1 -- Anion Gap mmol/L 10 11 15 13 12 Complete Blood Count: Lab results within last 7 days (see chart for full results) Units 12/22/22 0437 12/21/22 2021 12/21/22 1132 12/21/22 0433 12/21/22 0241 12/20/22 1701 WBC K/uL 9.42 9.27 10.13 10.82* 10.50 10.97* HGB g/dL 7.8* 8.4* 7.5* 7.2* 7.6* 5.1* HCT % 27.7* 28.8* 27.0* 25.3* 26.4* 18.2* PLT K/uL 218 234 215 192 197 231 MCV fL 75.9 74.6 75.4 74.6 74.4 68.2 Cardiac Studies: Lab results within last 7 days (see chart for full results) Units 12/21/22 0125 12/20/22 1701 Troponin T, High Sensitivity ng/L 16* 15* CK-MB ng/mL 1.6 -- BNP, NT-Pro pg/mL 2,671* -- Coagulation Studies: Lab results within last 7 days (see chart for full results) Units 12/21/22 0125 12/20/22 1701 Prothrombin Time seconds 15.8* 16.2* INR 1.2 1.3* aPTT seconds -- 29 Liver Function Panel: Lab results within last 7 days (see chart for full results) Units 12/22/22 0437 12/21/22 0433 12/20/22 1701 Albumin g/dL 3.0* 3.0* 3.0* Protein g/dL 6.3 6.0 6.6 Bilirubin, Total mg/dL 0.7 2.0* 0.5 Bilirubin, Direct mg/dL 0.3 0.4* 0.2 AST U/L 10 13 12 ALT U/L 8* 10 7* Alkaline Phosphatase U/L 71 69 74 Infectious Studies: Lab results within last 7 days (see chart for full results) Units 12/21/22 0433 12/21/22 0125 12/20/22 1701 Lactate, Whole Blood mmol/L -- -- 1.9 Lactate mmol/L 1.1 1.6 -- Procalcitonin ng/mL -- -- 0.18* Cultures: reviewed. Recent Cultures (2 Weeks) 12/20/2022 5:01 PM BLOOD CULTURE GROWTH No growth to date No growth to date RADIOGRAPHIC STUDIES: no new imaging Principal Problem: Shock (HCC) POA: Unknown Active Problems: Gastrointestinal hemorrhage POA: Yes Acute on chronic respiratory failure with hypoxia (HCC) POA: Yes Pleural effusion POA: Unknown Acute pulmonary edema (HCC) POA: Unknown Acute on chronic anemia POA: Unknown Pain of upper abdomen POA: Unknown POA = Present On Admission SYSTEM BASED PLAN: NEUROLOGIC: Chronic pain - AOx3 - pain management: lidocaine patch and restarted on CALENDER LET OFF OPERATOR tramadol - CALENDER LET OFF OPERATOR trazodone - Restarted CALENDER LET OFF OPERATOR gabapentin 600 mg daily. Was held due to NAZARIO which has resolved PULMONARY / RESPIRATORY: Acute on chronic hypoxic RF, spO2 90% 3L O2 COPD - PRN albuterol - Incruse ellipta, Breo-ellipta - CALENDER LET OFF OPERATOR Duonebs, tiotropium (Spiriva) held CARDIOVASCULAR: Undifferentiated shock Acute HFpEF (EF 55%) History of pulmonary HTN Sinus bradycardia - BP 93/77, MAP 82, has had HRs in the 50s this morning. EKG ordered to check QT interval - levophed 1mcg/min - TTE on 12/21/2022 showed preserved LVEF 55%, mildly reduced RV systolic function, severe tricuspidregurgitation, moderate pulmonary HTN - given Bumetanide 2 mg x2 yesterday. UOP 2.7L yesterday. 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 Started on PRN odansetron, prochlorperazine - GI consulted. EGD showed Scott esophagitis, small varices, no obvious source of bleeding to explain acute anemia. Plan for colonoscopy tomorrow - Diet: Started on clear liquids. NPO except meds after midnight for colonoscopy tomorrow - octreotide discontinued as no variceal bleed was seen on EGD - ceftriaxone 1g q24h for SBP prophylaxis, CALENDER LET OFF OPERATOR omeprazole 20mg - started on CALENDER LET OFF OPERATOR lactulose - CTAP 12/20 concerning for pancreatitis, lipase wnl and no epigastric pain lowers clinical concern for pancreatitis. Imaging shows no evidence for GI bleed, shows some wall thickening of colon consistent with hypertensive portal colopathy vs colitis. RENAL / METABOLIC / FLUIDS: NAZARIO, resolved Hypokalemia, - Cr 1.0, baseline 0.9 - daily BMP, Mg, Phos, LFTs INFECTIOUS DISEASES: Scott esophagitis - PO fluconazole 200mg daily - blood cultures collected 12/20 remain negative - respiratory pathogen panel negative - U/a wnl - MRSA screen negative ENDOCRINE: Hx of Graves, s/p thyroidectomy, postsurgical hypothyroidism - CALENDER LET OFF OPERATOR levothyroxine 150 mcg - serum cortisol wnl - BG 157, goal is 140-180 for inpatient - TSH low 0.09, normal free T4 HEMATOLOGIC: Acute on chronic anemia, possibly hemolytic Mild leukocytosis, resolved - Hgb 7.8 from 8.4 - moderate schistocytes on peripheral smear - Check haptoglobin, LD, reticulocyte, direct Cynthia - CBC Q12H - DVT/VTE ppx: subq heparin MUSCULOSKELETAL / DERMATOLOGIC / P.T / O.T. / MOBILITY: Neck pain Chronic back pain SLE - restarted on CALENDER LET OFF OPERATOR Cellcept, as there is no acute concern for infection - Neck pain is likely musculoskeletal in nature, differential includes cervical radiculopathy vs spinal stenosis - CALENDER LET OFF OPERATOR tramadol - PT/OT consulted GLOBAL ISSUES: Analgesia: protocol not in control and will adjust Sedation: N/A Delirium/Confusion Assessment Method for ICU (CAM-ICU): CAM-ICU negative HOB Elevation: greater than 30 degress Nutrition: enteral, advancing to goal DVT Prophylaxis: chemoprophylaxis with pneumatic compression devices Stress Ulcer Prophylaxis: PPI therapy for other indication Glycemic Control: controlled - not in protocol Central Line Necessity Reviewed: N/A Hilario: reviewed and needed Disposition: keep in ICU Patient's decisional capacity: has capacity to make decisions Communication with Patient/Family: No meeting held. Goals of Care: improve respiratory status, wean respiratory parameters, stabilize hemodynamic status, and decrease pain and discomfort Patient seen and discussed with attending physician, Dr. Andie Chavis DO. * Care Plan - Miriam Holder RN - 12/21/2022 9:47 PM EDT Problem: Pain & Impaired Comfort Goal: Patient's pain & discomfort is manageable. Outcome: Progressing Problem: Safety & Risk for Injury Goal: Patient will remain free from injury. Outcome: Progressing Problem: Daily Care & Potential Self-Care Deficit Goal: Patient's daily care needs are met. Outcome: Progressing Problem: Risk for Impaired Physical Mobility Goal: Patient will maintain optimal mobility level. Outcome: Progressing Problem: Risk for Infection & Contamination Goal: Staff & visitors will prevent transmission of infection. Outcome: Progressing Clinical Goal(s): SBP>90 (12/21/221999) Possible barriers to meeting goal(s)/advancing plan of care: possible GI bleed, wean pressors Stability of the patient: Moderately unstable - medium risk of patient condition declining or worsening Summary regarding today's goal(s): Met: pt maintained SBP>90 Recommendations: continue to monitor, titrate pressors as needed * Communication - Pamela Badillo DO - 12/21/2022 3:36 PM EDT BRIEF NOTE - GASTROENTEROLOGY and HEPATOLOGY Findings & Specimens: Patchy, yellow plaques were found in the middle third of the esophagus and in the lower third of the esophagus. LA Grade A (one or more mucosal breaks less than 5 mm, not extending between tops of 2 mucosal folds) esophagitis with no bleeding was found at the gastroesophageal junction. A 3 cm hiatal hernia was present. The Z-line was regular and was found 36 cm from the incisors. The gastroesophageal flap valve was visualized endoscopically and classified as Hill Grade IV (no fold, wide open lumen, hiatal hernia present). Small (< 5 mm) varices were found in the distal esophagus. No bleeding and no high risk stigmataof bleeding was found. The entire examined stomach was normal. The examined duodenum was normal. Impression: - Esophageal plaques were found, consistent [...] severe acute anemia found on this endoscopy. Recommendations Treat scott esophagitis. Plan for colonoscopy Prep ordered Follow an antireflux regimen. Continue PPI therapy daily. May discontinue IV octreotide. Would also obtain hemolytic work up Repeat upper endoscopy in 1 year for surveillance. * Ancillary Progress Note - Viki Dowell RN - 12/21/2022 3:02 PM EDT CARE MANAGEMENT - ADULT INITIAL SCREENING [address] [address] Name: Jazmín Blevins Location: [facility] A548/A Date: 12/21/2022 Time: 3:02 PM Patient Class: Inpatient (12/21/221455) Discussed patient with the interdisciplinary care team. This Intellectual Property Legal Assistant performed a chart review and met with pt at bedside to complete admission screen and assessed needs for transition planning. The home health care social worker role and services were explained and emotional support was provided. 30 Day Readmission Screening 30 Day Readmission Readmission within 30 days?: No (12/21/221455) Chief Complaint: No chief complaint on file. Prior Living Arrangements What was your living situation prior to admission/observation?: With Spouse (12/21/221455) Do you have any children, pets, or other dependents that you are currently caring for?: No (12/21/221455) Living Quarters: House (12/21/221455) How many stories is the dwelling?: Two Stories (12/21/221455) Number of steps to enter living quarters:: 3 in front, 5 on side (12/21/221455) Location of bathroom(s): All floors or Single story dwelling (12/21/221455) Do you have serious difficulty walking or climbing stairs? (5 years old or older): Yes (Was having some difficulty due to dizziness and back pain) (12/21/221455) History of falling: No (12/21/221455) Prior Level of Functioning Describe the patient's ability prior to admission/observation to perform ADLs: Performs independently (12/21/221455) Describe the patient's mobility status prior to admission: Patient ambulates independently (12/21/221455) Patient uses assistive device: No (12/21/221455) Caregiver Information Patient Contacts Name Relation Home Work Mobile Bipin Blevins Spouse [phone] OkQuin zhao Adult Child [phone] Risk Stratification/Psychosocial/Care Gaps Risk Stratification Medical and Behavioral Health Concerns Identified: Chronic disease (12/21/221455) Accessed Neighborly to connect patients to social care resources: No (12/21/221455) OBRA or OPTIONS needed for placement: No (12/21/221455) Readmission Risk Score: 19 (12/21/221455) Comments: Initial assessment completed. Pt resides with her in a two story home where everything is accessible to her on the second floor and she enters from the front due to the front only having three steps to enter. Pt uses [employer] for her home oxygen supplies which she uses mainly at night and PRN during the day for SOB. Pt plans to discharge to her home with transport by her and feels her is able to assist her with care. Pt is not ready to make decisions about home health at this time. Pt states that she has portable oxygen supplies in her car and will have her own oxygen for transport home. Prior to Admission Services Services Prior to Admission CALENDER LET OFF OPERATOR Services (Services received within the last 30 days with exception, Psych within last two years): Durable Medical Equipment (12/21/221455) CALENDER LET OFF OPERATOR Durable Medical Equipment (DME) in home: Oxygen (name) - Comment;Cane (12/21/221455) DME Name: [employer] (12/21/221455) [place] Dept[employer] of Aging (PDA) Waiver Program: N/A (12/21/221455) CALENDER LET OFF OPERATOR Transportation (Services received within the last 30 days): Family/Friends Personal Vehicle;Patient drives self (12/21/221455) Outpatient Intellectual Property Legal Assistant: no, not applicable Patient/Family Expectations: Discharge home when medically stable. Anticipated Disposition Plan & Post Acute Needs Anticipated Plan Anticipated D/C disposition per abbreviated screening: Routine discharge or self care, No D/C planning needs identified. Will monitor for status change (12/21/221455) Anticipated Post-Acute Care needs identified: Oxygen (12/21/221455) For further screening information, please refer to the Care Management flow document. * Progress Notes - Non-Billable - Mk Forde, Medical Student - 12/21/2022 6:57 AM EDT Unless the attending has added an attestation supporting use of this note to document a billable service, the signature of the Licensed Professional on this note only acknowledges the presence of thestudent's note within the patient record and the Licensed Professional's note should be referred tofor clinical information and recommendations. CCM - PROGRESS NOTE [facility] [place] [address] Name: Jazmín Blevins Location: [facility] A548/A Date: 12/21/2022 Time: 6:58 AM PATIENT DESCRIPTION: Patient is a 57 year old female with PMH of cirrhosis 2/2 autoimmune hepatitis, esophageal varices, portal hypertensive gastropathy, SLE on chronic cellcept, COPD on 2L/min O2 atnight baseline, pulm HTN, Graves disease s/p thyroidectomy w/ post-op hypothyroidism transferred for management of shock and acute on chronic anemia concerning for GI bleed. HPI/EVENTS OF NOTE: 12/20: presented to [facility] ED for feet swelling, fatigue, neck pain. Given fluids, pRBCs, started on norepinephrine. Hgb 5.1. Transferred to [facility] ICU for management of shock Today, patient says she feels better. She still has pain in her neck that radiates down both arms. Reports no fever, chills, headache, vision changes, chest pain, shortness of breath, nausea, vomiting, dysuria, or diarrhea. Notes she has had some constipation, last had a small bowel movement yesterday. CONSTITUTIONAL DATA: BP: 100 mmHg/58 mmHg (12/21/22614) Pulse: 62 (12/21/22614) Temp: 36.61 C (12/21/22 0400) Resp: 15 (12/21/22614) SpO2: 91 % (12/21/22614) Intake/Output Summary (Last 24 hours) at 12/21/2022 0749 Last data filed at 12/21/2022 0600 Gross per 24 hour Intake 687.5 ml Output 510 ml Net 177.5 ml PHYSICAL EXAM: General: lying in bed, in no acute distress HEENT: normocephalic, atraumatic, PERRL, mucous membranes moist CV: regular heart rate and rhythm, no murmur Pulm: clear to auscultation bilaterally, no wheezes, no crackles appreciated Abdomen: soft, mild diffuse tenderness to palpation, appears somewhat distended, no fluid wave elicited Extremities: warm, dry, no edema Neuro: alert, orientedx3, strength intact throughout LABORATORY VALUES: -- Brief labs below include the 7 most recent results over the past week. Blood Gas: Lab results within last 7 days (see chart for full results) Units 12/20/22 1701 pH, Venous units 7.419 pCO2, Venous mmHg 41.5 pO2, Venous mmHg 13.2* Base Excess, Venous mmol/L 2.2* Chemistry Panel: Lab results within last 7 days (see chart for full results) Units 12/21/22 04312/21/22 0125 12/20/22 1701 Sodium mmol/L 133* 132* 130* Potassium mmol/L 3.5 3.0* 3.1* Chloride mmol/L 97* 97* 93* CO2 mmol/L 21* 22 25 BUN mg/dL 29* 31* 35* Creatinine mg/dL 2.0* 2.1* 2.6* Estimated Glomerular Filtration Rate mL/min 29* 28* 21* Glucose mg/dL 114 118 130* Calcium mg/dL 7.7* 7.9* 8.4 Magnesium mg/dL 1.9 1.6 -- Phosphorus mg/dL 3.4 3.1 -- Anion Gap mmol/L 15 13 12 Complete Blood Count: Lab results within last 7 days (see chart for full results) Units 12/21/22 0433 12/21/22 0241 12/20/22 1701 WBC K/uL 10.82* 10.50 10.97* HGB g/dL 7.2* 7.6* 5.1* HCT % 25.3* 26.4* 18.2* PLT K/uL 192 197 231 MCV fL 74.6 74.4 68.2 Cardiac Studies: Lab results within last 7 days (see chart for full results) Units 12/21/22 0125 12/20/22 1701 Troponin T, High Sensitivity ng/L 16* 15* CK-MB ng/mL 1.6 -- BNP, NT-Pro pg/mL 2,671* -- Coagulation Studies: Lab results within last 7 days (see chart for full results) Units 12/21/22 0125 12/20/22 1701 Prothrombin Time seconds 15.8* 16.2* INR 1.2 1.3* aPTT seconds -- 29 Liver Function Panel: Lab results within last 7 days (see chart for full results) Units 12/21/22 0433 12/20/22 1701 Albumin g/dL 3.0* 3.0* Protein g/dL 6.0 6.6 Bilirubin, Total mg/dL 2.0* 0.5 Bilirubin, Direct mg/dL 0.4* 0.2 AST U/L 13 12 ALT U/L 10 7* Alkaline Phosphatase U/L 69 74 Infectious Studies: Lab results within last 7 days (see chart for full results) Units 12/21/22 0433 12/21/22 0125 12/20/22 1701 Lactate, Whole Blood mmol/L -- -- 1.9 Lactate mmol/L 1.1 1.6 -- Procalcitonin ng/mL -- -- 0.18* Cultures: reviewed. Recent Cultures (2 Weeks) 12/20/2022 5:01 PM BLOOD CULTURE GROWTH No growth to date No growth to date Radiographic Studies: CTA ABD/PELVIS Result Date: 12/20/2022 IMPRESSION: 1. No evidence for GI bleed. 2. Finding concerning for pancreatitis. No pancreatic ductdilatation or pseudocyst. Recommend correlation with labs. 3. Hepatic cirrhosis with ascites. 4. Wall thickening of the proximal ascending, descending and sigmoid colon which could be secondary to hypertensive portal colopathy. However, infectious versus inflammatory colitis cannot be excluded. 5. Nonenlarged peripancreatic and few borderline enlarged left para-aortic lymph nodes which could be reactive. THIS DOCUMENT HAS BEEN ELECTRONICALLY SIGNED BY MARK LEMUS MD XR CHEST 1 VIEW Result Date: 12/20/2022 IMPRESSION: Hazy bibasilar airspace opacities secondary to infiltrate versus atelectasis with smallbilateral pleural effusions. THIS DOCUMENT HAS BEEN ELECTRONICALLY SIGNED BY MARK LEMUS MD Active Problems: Gastrointestinal hemorrhage POA: Yes Acute on chronic respiratory failure with hypoxia (HCC) POA: Yes Shock (HCC) POA: Unknown Pleural effusion POA: Unknown Acute pulmonary edema (HCC) POA: Unknown Acute on chronic anemia POA: Unknown POA = Present On Admission SYSTEM BASED PLAN: NEUROLOGIC: Chronic pain - restarted CALENDER LET OFF OPERATOR tramadol - CALENDER LET OFF OPERATOR trazodone, gabapentin held PULMONARY / RESPIRATORY: Acute on chronic hypoxic RF, spO2 93% 6L O2 on 2L at baseline, lungs CTA COPD - PRN albuterol - Incruse ellipta, Breo-ellipta - CALENDER LET OFF OPERATOR Duonebs, tiotropium (Spiriva) held CARDIOVASCULAR: Undifferentiated shock Acute CHF - levophed 8mcg/min - 20 lb weight gain in 1 week, b/l LE edema, elevated BNP, b/l pleural effusions seen on CXR consistent with heart failure exacerbation - TTE - given Bumetanide 2 mg - holding CALENDER LET OFF OPERATOR Ambrisentan, tadalafil, torsemide, labetalol, nadolol GASTROINTESTINAL / HEPATOBILIARY: Concern for GI bleed 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 Imaging shows no evidence for GI bleed, shows some wall thickening of colon consistent with hypertensive portal colopathy vs colitis. RENAL / METABOLIC / FLUIDS: NAZARIO Hypokalemia, - Cr 2.0, baseline 0.9 - Q6H BMP, Mg, Phos. Q12H LFTs INFECTIOUS DISEASES: No acute concern - blood cultures collected 12/20 - respiratory pathogen panel negative - U/a wnl - MRSA screen negative - Procal mildly elevated 0.18 ENDOCRINE: Hx of Graves, s/p thyroidectomy, postsurgical hypothyroidism - holding levothyroxine while NPO - serum cortisol ordered to see if adrenal insufficiency may be contributing to hypotension HEMATOLOGIC: Acute on chronic anemia, concern for ABLA 2/2 GI bleed Chronic anemia Mild leukocytosis, likely reactive in the setting of shock - WBCs 10.82 from 10.5 - Hgb 7.2 from 7.6 - CBC Q6H MUSCULOSKELETAL / DERMATOLOGIC / P.T / O.T. / MOBILITY: Neck pain Chronic back pain - Neck pain is likely musculoskeletal in nature, differential includes cervical radiculopathy vs spinal stenosis - CALENDER LET OFF OPERATOR tramadol LINES / DRAINS / TUBES: LINES ALL Duration Peripheral Line Left Antecubital 18 Gauge <1 day Peripheral Line Left;Lower;Posterior Arm 20 Gauge <1 day Peripheral Line Right Antecubital 20 Gauge <1 day Urethral Catheter Regular catheter <1 day GLOBAL ISSUES: Analgesia: controlled - other Sedation: N/A Delirium/Confusion Assessment Method for ICU (CAM-ICU): CAM-ICU negative HOB Elevation: greater than 30 degress Nutrition: NPO DVT Prophylaxis: pneumatic compression devices alone due to chemoprophylaxis contraindication Stress Ulcer Prophylaxis: PPI therapy for other indication Glycemic Control: controlled - not in protocol Central Line Necessity Reviewed: N/A Hilario: reviewed and needed Disposition: keep in ICU Patient's decisional capacity: has capacity to make decisions Communication with Patient/Family: No meeting held. Goals of Care: improve respiratory status, wean respiratory parameters, stabilize hemodynamic status, and decrease pain and discomfort Patient seen, examined, and discussed with attending physician, Dr. Andie Chavis DO. * Ancillary Progress Note - Jade Yang RRT - 12/21/2022 2:00 AM EDT PATIENT DRIVEN PROTOCOL - Respiratory Care Services [address] [address] Name: Jazmín Blevins Location: [facility] A548/A Date: 12/21/2022 Time: 2:00 AM Patient Driven Protocol Summary: Initial evaluation performed. This Treatment Plan and medications will be reviewed by the Primary Care Team for any contraindications. Respiratory Care Treatment Plan Aerosol Therapy Treatment:: Hand Held Nebulizer Tx PRN with Albuterol Sulfate: Unit dose 0.083%. to reduce work of breathing and improve pulmonary gas exchange. Additional Aerosolized Treatments: Inhaler(s) QDAY with Breo Ellipta (Fluticasone furoate 200 mcg and Vilanterol 25 mcg inhalation powder) / 1 inhalation . to reduce work of breathing and improve pulmonary gas exchange and suppress bronchial inflammation and edema by the use of systemic steroid sparing therapy. Additional Aerosolized Treatments: Inhaler(s) QDAY with Incruse Ellipta (Umeclidinium 62.5 mcg inhalation powder) / 1 inhalation. to reduce work of breathing and improve pulmonary gas exchange and suppress bronchial inflammation and edema by the use of systemic steroid sparing therapy. . Pulmonary Volume Expansion Therapy: Incentive Spirometry PRN to enhance mobilization of secretions and prevent or treat alveolar consolidation and atelectasis. . The patient will be re-evaluated: No re-evaluation [...] Medical Record Assessment Clinical Findings Pulmonary Status: 1 - Smoking less than 1 pack/day or quit less than 5 years ago Surgical Status: 0 - No Surgical History Chest X-Ray: 2 - Infiltrates and/or Atelectasis Assessment Score: 3 Patient Assessment Clinical Findings Respiratory Pattern: 0 - RR 12 - 20; Patient only gets breathless with strenuous exercise. Breath Sounds: 2 - Diminished bilaterally Cough Effectiveness: 0 - Strong non-productive Sputum Production: 0 - No sputum production Level of Activity: 0 - Ambulatory O2 needed to keep SpO2 greater than or equal to 92%: 1 - Oxygen 1-3 LPM or FiO2 less than 35% Assessment Score: 3 Total Assessment Score: 6 Breath Sounds: Inspiratory and expiratory clear and diminished bilaterally.. Cough and Sputum: An effective cough produced no sputum... CXR: Hazy bibasilar airspace opacities secondary to infiltrate versus atelectasis with small bilateral pleural effusions. Vital Signs: Resp: 12 (12/21/2299) Pulse: 57 (12/21/2299) Temp: 36.5 C (97.7 F) (12/21/2299) BP: 107/85 (12/21/2299) SpO2: 90 % (12/21/2299) PFT: Minimal Predicted IC: .891 L. Inspiratory capacity: 1.5 L. Primary Service: Critical Care Green. Admitting Diagnosis: Anemia [D64.9] Shock (HCC) [R57.9] Pulmonary Diagnosis: COPD and Pulmonary HTN. Prescriptions/Home Medications/Durable Medical Equipment: Qday Spiriva; Qday Breo 200; PRN Albuterol; O2 @ 2L N/C day/ 3-4 nocturnal Recommended New home medications/durable medical equipment/outpatient pulmonary/sleep referral : none. documented in this encounter Plan of Treatment Upcoming Encounters Date Type Specialty Care Team Description 01/04/2023 Office Visit Family Medicine Surjit Reggie Fitch, DO [address] [phone] 01/04/2023 Telemedicine Endocrinology Gilbert Hawkins MD [address] [place] [address] 01/09/2023 Office Visit Ophthalmology Fran French DO [address], [place] [phone] 03/16/2023 Office Visit Pulmonary Twin Hayden MD [address] [place] [address] Scheduled Orders Name Type Priority Associated Diagnoses Orde r Schedule EGD, FLEXIBLE, DIAGNOSTIC Procedures Routine Once for 1 Occur rences starting 12/21/2022 until 12/21/2022 EKG EKG Routine Bradycardia One Time for 1 Occurrences starting 12/22/2022 until 12/22/2022 COLONOSCOPY, DIAGNOSTIC (RECTUM) Procedures Routine Once for 1 O ccurrences starting 12/23/2022 until 12/23/2022 Scheduled Procedures Name Priority Associated Diagnoses Date/Ti [...] Comments DISCUSS TOBACCO CESSATION (REFER TO SMARTSET #1214) 1965 COVID-19 Vaccine (#1) 1970 Alpha-1 Antitrypsin [...] this encounter Medical Devices Implanted Type Area Education Technician Device Identifier Shelf Expiration Date Model / Serial / Lot Lens 22.0 Sa60at - [id number] Implanted:Qty: 1 on 10/15/2012 at OR [facility] Left: Eye [employer] 10/07/2016 SA60AT / [id number] / Lens 22.0 Sa60at - [id number] Implanted:Qty: 1 on 11/29/2012 at OR [facility] Right: Eye [employer] 03/31/2017 SA60AT / [id number] / Duraclip 11mm Repositionable - [id number] Implanted:Qty: 1 on 05/11/2022 by Jeffrey Weber MD at ENDOSCOPY [facility] mYwindow [id number] 01/29/2024 [id number] / / [id number] documented as of this encounter Procedures Procedure Name Priority Date/Time Associated Diagnosis Comments BASIC METABOLIC PANEL Routine 12/30/2022 9:31 AM EDT PHOSPHORUS Routine 12/30/2022 9:31 AM EDT CBC Routine 12/30/2022 9:31 AM EDT MAGNESIUM Routine 12/30/2022 9:31 AM EDT NOCTURNAL OXIMETRY (INPATIENT) Routine 0 12/30/2022 8:38 AM EDT BASIC METABOLIC PANEL Routine 12/29/2022 5:53 PM EDT CBC Routine 12/29/2022 5:53 PM EDT TRANSFUSE PACKED RED BLOOD CELLS Routine 12/29/2022 3:01 PM EDT TYPE AND SCREEN STAT 12/29/2022 12:36 PM EDT HC COMPATIBILITY ELECTRONIC CROSSMATCH Routine 12/29/2022 11:55 AM EDT BASIC METABOLIC PANEL Routine 12/29/2022 6:32 AM EDT PHOSPHORUS Routine 12/29/2022 6:32 AM EDT CBC Routine 12/29/2022 6:32 AM EDT MAGNESIUM Routine 12/29/2022 6:32 AM EDT FERRITIN Add-on 12/29/2022 6:32 AM EDT BASIC METABOLIC PANEL Routine 12/28/2022 6:21 PM EDT TROPONIN T, HIGH SENSITIVITY STAT 11:53 AM EDT XR CHEST 1 VIEW STAT 12/28/2022 9:55 AM EDT TROPONIN T, HIGH SENSITIVITY STAT 8:46 AM EDT BNP (NT-PROBNP) Add-on 12/28/2022 8:46 AM EDT BASIC METABOLIC PANEL Routine 12/28/2022 8:46 AM EDT PHOSPHORUS Routine 12/28/2022 8:46 AM EDT CBC Routine 12/28/2022 8:46 AM EDT MAGNESIUM Routine 12/28/2022 8:46 AM EDT HC ECG TRACING ONLY Routine 12/28/2022 7:50 AM EDT Chest pain CBC Routine 12/27/2022 7:58 AM EDT EXTRA GREEN TOP WITH GEL Routine 023 7:55 AM EDT EXTRA TUBES Routine 12/27/2022 7:55 AM EDT BASIC METABOLIC PANEL Add-on 12/27/2022 7:55 AM EDT PHOSPHORUS Add-on 12/27/2022 7:55 AM EDT MAGNESIUM Add-on 12/27/2022 7:55 AM EDT HEPATIC FUNCTION PANEL STAT 7:23 AM EDT BASIC METABOLIC PANEL STAT 12/26/2022 7:23 AM EDT PHOSPHORUS Routine 12/26/2022 7:23 AM EDT CALCIUM, IONIZED, WHOLE BLOOD Routine 7:23 AM EDT CBC Routine 12/26/2022 7:23 AM EDT MAGNESIUM STAT 12/26/2022 7:23 AM EDT CBC Routine 12/25/2022 11:00 AM EDT HEPATIC FUNCTION PANEL STAT 8:36 AM EDT BASIC METABOLIC PANEL STAT 12/25/2022 8:36 AM EDT PHOSPHORUS Routine 12/25/2022 8:36 AM EDT CALCIUM, IONIZED, WHOLE BLOOD Routine 8:36 AM EDT MAGNESIUM STAT 12/25/2022 8:36 AM EDT HEPATIC FUNCTION PANEL STAT 6:34 AM EDT BASIC METABOLIC PANEL STAT 12/24/2022 6:34 AM EDT PHOSPHORUS Routine 12/24/2022 6:34 AM EDT CALCIUM, IONIZED, WHOLE BLOOD Routine 6:34 AM EDT CBC STAT 12/24/2022 6:34 AM EDT MAGNESIUM STAT 12/24/2022 6:34 AM EDT CBC STAT 12/23/2022 5:43 PM EDT SURGICAL PATHOLOGY Routine 12/23/2022 12:24 PM EDT COLONOSCOPY FLEXIBLE PROXIMA L DIAGNOSTIC 12/23/2022 11:59 AM EDT Bleeding COLONOSCOPY 12/23/2022 10:45 AM EDT HEPATIC FUNCTION PANEL STAT 6:29 AM EDT BASIC METABOLIC PANEL STAT 12/23/2022 6:29 AM EDT PHOSPHORUS Routine 12/23/2022 6:29 AM EDT CALCIUM, IONIZED, WHOLE BLOOD Routine 6:29 AM EDT CBC STAT 12/23/2022 6:29 AM EDT MAGNESIUM STAT 12/23/2022 6:29 AM EDT CBC STAT 12/22/2022 6:23 PM EDT DIRECT CYNTHIA Routine 12/22/2022 12:46 PM EDT LD Routine 12/22/2022 12:46 PM EDT HAPTOGLOBIN Routine 12/22/2022 12:46 PM EDT RETICULOCYTE PANEL Add-on 12/22/2022 4:37 AM EDT HEPATIC FUNCTION PANEL STAT 4:37 AM EDT BASIC METABOLIC PANEL STAT 12/22/2022 4:37 AM EDT PHOSPHORUS Routine 12/22/2022 4:37 AM EDT CALCIUM, IONIZED, WHOLE BLOOD Routine 4:37 AM EDT CBC STAT 12/22/2022 4:37 AM EDT MAGNESIUM STAT 12/22/2022 4:37 AM EDT CORTISOL Routine 12/22/2022 4:37 AM EDT CBC STAT 12/21/2022 8:21 PM EDT UPPER GI ENDOSCOPY 12/21/2022 2:09 PM EDT ECHO, COMPLETE (2D), TRANS-THORACIC Routine 12/21/2022 1:30 PM EDT Shock (HCC) ESOPHAGOGASTRODUODENOSCOPY (EGD), FLEXIBLE, TRANSORAL, DIAGNOSTIC 12/21/2022 1:00 PM EDT Gastrointestinal hemorrhage, unspecified gastrointestinal hemorrhage type SCHISTOCYTES, TECHNOLOGIST REVIEW Add-on 12/21/2022 11:32 AM EDT SCHISTOCYTES, TECHNOLOGIST REVIEW Add-on 12/21/2022 11:32 AM EDT TSH WITH FREE T4 IF INDICATED Add-on 11:32 AM EDT BASIC METABOLIC PANEL STAT 12/21/2022 11:32 AM EDT PHOSPHORUS STAT 12/21/2022 11:32 AM EDT CALCIUM, IONIZED, WHOLE BLOOD STAT 11:32 AM EDT CBC STAT 12/21/2022 11:32 AM EDT T4, FREE Routine 12/21/2022 11:32 AM EDT MAGNESIUM STAT 12/21/2022 11:32 AM EDT RESPIRATORY PATHOGEN PANEL, PCR STAT 12/21/2022 6:15 AM EDT CULTURE, URINE, QUANTITATIVE Routine 6:15 AM EDT HEPATIC FUNCTION PANEL STAT 4:33 AM EDT BASIC METABOLIC PANEL STAT 12/21/2022 4:33 AM EDT PHOSPHORUS STAT 12/21/2022 4:33 AM EDT LACTATE STAT 12/21/2022 4:33 AM EDT CALCIUM, IONIZED, WHOLE BLOOD STAT 4:33 AM EDT CBC STAT 12/21/2022 4:33 AM EDT MAGNESIUM STAT 12/21/2022 4:33 AM EDT CORTISOL Add-on 12/21/2022 4:33 AM EDT CBC STAT 12/21/2022 2:41 AM EDT MRSA SCREEN, PCR Routine 12/21/2022 2:16 AM EDT URINALYSIS, REFLEX TO MICROSCOPIC Routine 12/21/2022 2:16 AM EDT TEG (THOMROBOELASTOGRAPH) PANEL STAT 12/21/2022 1:25 AM EDT TEG (THROMBOELASTOGRAPH), HEPARINASE STAT 12/21/2022 1:25 AM EDT TROPONIN T, HIGH SENSITIVITY STAT 1:25 AM EDT CK-MB STAT 12/21/2022 1:25 AM EDT TEG (THROMBOELASTOGRAPH) STAT 023 1:25 AM EDT BNP (NT-PROBNP) STAT 12/21/2022 1:25 AM EDT BASIC METABOLIC PANEL STAT 12/21/2022 1:25 AM EDT CK STAT 12/21/2022 1:25 AM EDT PT INR STAT 12/21/2022 1:25 AM EDT PHOSPHORUS STAT 12/21/2022 1:25 AM EDT LIPASE Add-on 12/21/2022 1:25 AM EDT LACTATE STAT 12/21/2022 1:25 AM EDT CALCIUM, IONIZED, WHOLE BLOOD STAT 1:25 AM EDT MAGNESIUM STAT 12/21/2022 1:25 AM EDT documented in this encounter Results * BASIC METABOLIC PANEL (12/30/2022 9:31 AM EDT) BUN 6 6 - 20 mg/dL 12/30/2022 10:39 AM EDT [facility] Creatinine 0.9 0.5 - 1.0 mg/dL 12/30/2022 10:39 AM EDT [facility] Estimated Glomerular Filtration Rate 77 >=60 mL/min 12/30/2022 10:39 AM EDT [facility] Comment:eGFR is calculated b ased on the CKD-EPI 2020 equation Sodium 138 135 - 146 mmol/L 12/30/2022 10:39 AM EDT [facility] Potassium 4.0 3.5 - 5.1 mmol/L 12/30/2022 10:39 AM EDT [facility] Chloride 102 98 - 107 mmol/L 12/30/2022 10:39 AM EDT [facility] CO2 26 22 - 32 mmol/L 12/30/2022 10:39 AM EDT [facility] Anion Gap 10 7 - 15 mmol/L 12/30/2022 10:39 AM EDT [facility] Glucose 113 70 - 120 mg/dL 12/30/2022 10:39 AM EDT [facility] Calcium 9.2 8.4 - 10.2 mg/dL 12/30/2022 10:39 AM EDT [facility] Blood Venous blood specimen / Unknown Venipuncture / Unknown 12/30/2022 9:31 AM EDT 12/30/2022 10:10 AM EDT Hamzah Mcdonald MD LAB BLOOD ORDERABLES Performing Organization Address [facility] Co de Phone Number [facility] [address] [place] [address] * PHOSPHORUS (12/30/2022 9:31 AM EDT) Phosphorus 3.7 2.5 - 4.8 mg/dL 12/30/2022 10:39 AM EDT [facility] Blood Venous blood specimen / Unknown Venipuncture / Unknown 12/30/2022 9:31 AM EDT 12/30/2022 10:10 AM EDT Hamzah Mcdonald MD LAB BLOOD ORDERABLES Performing Organization Address [facility] de Phone Number [facility] [address] [place] [address] * MAGNESIUM (12/30/2022 9:31 AM EDT) Magnesium 1.8 1.5 - 2.6 mg/dL 12/30/2022 10:39 AM EDT [facility] Blood Venous blood specimen / Unknown Venipuncture / Unknown 12/30/2022 9:31 AM EDT 12/30/2022 10:10 AM EDT Hamzah Mcdonald MD LAB BLOOD ORDERABLES Performing Organization Address [facility] de Phone Number [facility] [address] [place] [address] * (ABNORMAL) CBC (12/30/2022 9:31 AM EDT) WBC 8.11 4.00 - 10.80 K/uL 12/30/2022 10:20 AM EDT [facility] RBC 4.42 3.85 - 5.15 M/uL 12/30/2022 10:20 AM EDT LABORATORY C HGB 10.7(L) 12.0 - 15.3 g/dL 12/30/2022 10:20 AM EDT [facility] HCT 36.7 36.0 - 45.2 % 12/30/2022 10:20 AM EDT [facility] MCV 83.0 81.5 - 97.5 fL 12/30/2022 10:20 AM EDT [facility] MCH 24.2 27.0 - 34.0 pg 12/30/2022 10:20 AM EDT [facility] MCHC 29.2 32.0 - 36.0 g/dL 12/30/2022 10:20 AM EDT [facility] RDW 30.7 11.5 - 15.5 % 12/30/2022 10:20 AM EDT LABORATORY C PLT 285 140 - 400 K/uL 12/30/2022 10:20 AM EDT [facility] MPV 10.4 6.6 - 11.1 fL 12/30/2022 10:20 AM EDT LABORATORY C nRBCs 0 <=0 /100 WBCs 12/30/2022 10:20 AM EDT LABORATORY [facility] Blood Venous blood specimen / Unknown Venipuncture / Unknown 12/30/2022 9:31 AM EDT 12/30/2022 10:[address] LAB BLOOD ORDER DANELLE LABORATORY [facility] [address] [place] [address] * NOCTURNAL OXIMETRY (INPATIENT) (12/30/2022 8:38 AM EDT) 12/30/2022 8:38 AM EDT [employer] * (ABNORMAL) BASIC METABOLIC PANEL (12/29/2022 5:53 PM EDT) BUN 7 6 - 20 mg/dL 12/29/2022 6:53 PM EDT LABORATORY [facility] Creatinine 0.8 0.5 - 1.0 mg/dL 12/29/2022 6:53 PM EDT [facility] Estimated Glomerular Filtration Rate 86 >=60 mL/min 12/29/2022 6:53 PM EDT [facility] Comment:eGFR is calculated b ased on the CKD-EPI 2020 equation Sodium 136 135 - 146 mmol/L 12/29/2022 6:53 PM EDT [facility] Potassium 4.0 3.5 - 5.1 mmol/L 12/29/2022 6:53 PM EDT [facility] Chloride 100 98 - 107 mmol/L 12/29/2022 6:53 PM EDT [facility] CO2 25 22 - 32 mmol/L 12/29/2022 6:53 PM EDT [facility] Anion Gap 11 7 - 15 mmol/L 12/29/2022 6:53 PM EDT [facility] Glucose 113 70 - 120 mg/dL 12/29/2022 6:53 PM EDT [facility] Calcium 8.3(L) 8.4 - 10.2 mg/dL 12/29/2022 6:53 PM EDT LABORATORY C Blood Venous blood specimen / Unknown Venipuncture / Unknown 12/29/2022 5:53 PM EDT 12/29/2022 6:15 PM EDT Hamzah Mcdonald MD LAB BLOOD ORDERABLES LABORATORY [facility] [address] [place] [address] * (ABNORMAL) CBC (12/29/2022 5:53 PM EDT) WBC 7.99 4.00 - 10.80 K/uL 12/29/2022 6:46 PM EDT [facility] RBC 3.83 3.85 - 5.15 M/uL 12/29/2022 6:46 PM EDT [facility] HGB 9.2(L) 12.0 - 15.3 g/dL 12/29/2022 6:46 PM EDT [facility] HCT 31.9(L) 36.0 - 45.2 % 12/29/2022 6:46 PM EDT [facility] MCV 83.3 81.5 - 97.5 fL 12/29/2022 6:46 PM EDT LABORATORY [facility] MCH 24.0 27.0 - 34.0 pg 12/29/2022 6:46 PM EDT LABORATORY [facility] MCHC 28.8 32.0 - 36.0 g/dL 12/29/2022 6:46 PM EDT LABORATORY [facility] RDW 30.3 11.5 - 15.5 % 12/29/2022 6:46 PM EDT LABORATORY [facility] PLT 248 140 - 400 K/uL 12/29/2022 6:46 PM EDT LABORATORY [facility] MPV 10.1 6.6 - 11.1 fL 12/29/2022 6:46 PM EDT LABORATORY [facility] nRBCs 0 <=0 /100 WBCs 12/29/2022 6:46 PM EDT LABORATORY [facility] Blood Venous blood specimen / Unknown Venipuncture / Unknown 12/29/2022 5:53 PM EDT 12/29/2022 6:15 PM EDT Hamzah Mcdonald MD LAB BLOOD ORDERABLES LABORATORY [facility] [address] [place] [address] * TRANSFUSE PACKED RED BLOOD CELLS (12/29/2022 5:17 PM EDT) Hamzah Mcdonald MD BLD BANK TRANFUSE OR DERABLES * TRANSFUSE PACKED RED BLOOD CELLS (12/29/2022 5:17 PM EDT) Hamzah [place] BANK TRANFUSE OR DERABLES * TYPE AND SCREEN (12/29/2022 12:36 PM EDT) ABO AB 12/29/2022 1:49 PM EDT LABORATORY [facility] BLOOD BANK Rh Positive 12/29/2022 1:49 PM EDT LABORATORY [facility] BLOOD BANK Red Blood Cell Antibody Screen Negative 12/29/2022 1:49 PM EDT LABORATORY [facility] BLOOD BANK Specimen Expiration Date 01/01/2023 23:59 12/29/2022 1:49 PM EDT LABORATORY [facility] BLOOD BANK Blood Venous blood specimen / Unknown Venipuncture / Unknown 12/29/2022 12:36 PM EDT 12/29/2022 12:52 PM EDT Hamzah Mcdonald MD LAB BLOOD BANK TEST ORDERABLES Performing Organization Address [facility] Co de Phone Number LABORATORY [facility] BLOOD BANK [address] [place] [address] * PREPARE PACKED RED BLOOD CELLS (12/29/2022 11:55 AM EDT) Unit Product Code [id number] LABORATORY [facility] BLOOD BANK Unit Number [id number] LABO RATORY [facility] BLOOD BANK Unit ABO AB LABORATORY [facility] BLOOD BANK Unit Rh POS LABORATORY [facility] BLOOD BANK Unit Crossmatch Compatible LABORATORY [facility] BLOOD BANK Unit Status PT LABORATO RY [facility] BLOOD BANK Unit Blood Type ABPOS LABORATORY [facility] BLOOD BANK Unit Expiration [id number] LABORATORY [facility] BLOOD BANK Unit Barcode [id number] LABORAT ORY [facility] BLOOD BANK 12/29/2022 11:5 5 AM EDT Hamzah Mcdonald MD BLD BANK PRODUCT ORD ERABLES Performing Organization Address [facility] de Phone Number LABORATORY [facility] BLOOD BANK [address] [place] [address] * (ABNORMAL) FERRITIN (12/29/2022 6:32 AM EDT) Pathologist [facility] Ferritin 651(H) 13 - 150 ng/mL 12/29/2022 10:48 AM EDT LABORATORY [facility] Comment:Postmenopausal women have higher ferritin levels than pre-menopausal women. The above reference interval is based on pre-menopausal women. Blood Venous blood specimen / Unknown Venipuncture / Unknown 12/29/2022 6:32 AM EDT 12/29/2022 7:20 AM EDT Hamzah Mcdonald MD LAB BLOOD ORDERABLES Performing Organization Address [facility] Co de Phone Number LABORATORY [facility] [address] [place] [address] * (ABNORMAL) BASIC METABOLIC PANEL (12/29/2022 6:32 AM EDT) BUN 6 6 - 20 mg/dL 12/29/2022 7:46 AM EDT [facility] Creatinine 0.8 0.5 - 1.0 mg/dL 12/29/2022 7:46 AM EDT [facility] Estimated Glomerular Filtration Rate 82 >=60 mL/min 12/29/2022 7:46 AM EDT [facility] Comment:eGFR is calculated b ased on the CKD-EPI 2020 equation Sodium 136 135 - 146 mmol/L 12/29/2022 7:46 AM EDT [facility] Potassium 4.4 3.5 - 5.1 mmol/L 12/29/2022 7:46 AM EDT [facility] Chloride 103 98 - 107 mmol/L 12/29/2022 7:46 AM EDT [facility] CO2 26 22 - 32 mmol/L 12/29/2022 7:46 AM EDT [facility] Anion Gap 7 7 - 15 mmol/L 12/29/2022 7:46 AM EDT [facility] Glucose 99 70 - 120 mg/dL 12/29/2022 7:46 AM EDT [facility] Calcium 8.0(L) 8.4 - 10.2 mg/dL 12/29/2022 7:46 AM EDT [facility] Blood Venous blood specimen / Unknown Venipuncture / Unknown 12/29/2022 6:32 AM EDT 12/29/2022 7:20 AM EDT Hamzah Mcdonald MD LAB BLOOD ORDERABLES Performing Organization Address City/[facility] Co de Phone Number LAB[facility]ORY [facility] [address] [place] [address] * PHOSPHORUS (12/29/2022 6:32 AM EDT) Phosphorus 2.7 2.5 - 4.8 mg/dL 12/29/2022 7:46 AM EDT [facility] Blood Venous blood specimen / Unknown Venipuncture / Unknown 12/29/2022 6:32 AM EDT 12/29/2022 7:20 AM EDT Hamzah Mcdonald MD LAB BLOOD ORDERABLES Performing Organization Address City/[facility]/ZIP Co de Phone Number LAB[facility]ORY [facility] [address] [place] [address] * MAGNESIUM (12/29/2022 6:32 AM EDT) Pathologist [facility] Magnesium 1.7 1.5 - 2.6 mg/dL 12/29/2022 7:46 AM EDT [facility] Blood Venous blood specimen / Unknown Venipuncture / Unknown 12/29/2022 6:32 AM EDT 12/29/2022 7:20 AM EDT Hamzah Mcdonald MD LAB BLOOD ORDERABLES Performing Organization Address [facility] de Phone Number LABORATORY [facility] [address] [place] [address] * (ABNORMAL) CBC (12/29/2022 6:32 AM EDT) [facility] WBC 7.90 4.00 - 10.80 K/uL 12/29/2022 7:30 AM EDT LABORATORY [facility] RBC 3.16 3.85 - 5.15 M/uL 12/29/2022 7:30 AM EDT LABORATORY [facility] HGB 7.0(LL) 12.0 - 15.3 g/dL 12/29/2022 7:30 AM EDT LABORATORY [facility] HCT 26.0(L) 36.0 - 45.2 % 12/29/2022 7:30 AM EDT LABORATORY [facility] MCV 82.3 81.5 - 97.5 fL 12/29/2022 7:30 AM EDT LABORATORY [facility] MCH 22.2 27.0 - 34.0 pg 12/29/2022 7:30 AM EDT LABORATORY [facility] MCHC 26.9 32.0 - 36.0 g/dL 12/29/2022 7:30 AM EDT LABORATORY [facility] RDW 30.7 11.5 - 15.5 % 12/29/2022 7:30 AM EDT LABORATORY [facility] PLT 222 140 - 400 K/uL 12/29/2022 7:30 AM EDT LAB[facility]ATORY [facility] MPV 10.5 6.6 - 11.1 fL 12/29/2022 7:30 AM EDT LABORATORY [facility] nRBCs 0 <=0 /100 WBCs 12/29/2022 7:30 AM EDT LAB[facility]ATORY [facility] Blood Venous blood specimen / Unknown Venipuncture / Unknown 12/29/2022 6:32 AM EDT 12/29/2022 7:20 AM EDT Corrine Sherman DO LAB BLOOD ORDER [facility] [address] [place] [address] * (ABNORMAL) BASIC METABOLIC PANEL (12/28/2022 6:21 PM EDT) BUN 5(L) 6 - 20 mg/dL 12/28/2022 7:01 PM EDT LAB[facility]ATORY [facility] Creatinine 0.7 0.5 - 1.0 mg/dL 12/28/2022 7:01 PM EDT LAB[facility]ATORY [facility] Estimated Glomerular Filtration Rate >90 >=60 mL/min 12/28/2022 7:01 PM EDT LAB[facility]ATORY [facility] Comment:eGFR is calculated b ased on the CKD-EPI 2020 equation Sodium 135 135 - 146 mmol/L 12/28/2022 7:01 PM EDT LAB[facility]ATORY [facility] Potassium 4.1 3.5 - 5.1 mmol/L 12/28/2022 7:01 PM EDT LAB[facility]ATORY [facility] Chloride 100 98 - 107 mmol/L 12/28/2022 7:01 PM EDT LAB[facility]ATORY [facility] CO2 24 22 - 32 mmol/L 12/28/2022 7:01 PM EDT LAB[facility]ATORY [facility] Anion Gap 11 7 - 15 mmol/L 12/28/2022 7:01 PM EDT LAB[facility]ATORY [facility] Glucose 135(H) 70 - 120 mg/dL 12/28/2022 7:01 PM EDT LAB[facility]ATORY [facility] Calcium 8.4 8.4 - 10.2 mg/dL 12/28/2022 7:01 PM EDT LAB[facility]ATORY [facility] Blood Venous blood specimen / Unknown Venipuncture / Unknown 12/28/2022 6:21 PM EDT 12/28/2022 6:28 PM EDT Hamzah Mcdonald MD LAB BLOOD ORDERABLES LABORATORY [facility] [address] [place] [address] * TROPONIN T, HIGH SENSITIVITY (12/28/2022 11:53 AM EDT) Troponin T, High Sensitivity 7 <=14 ng/L 12/28/2022 12:33 PM EDT LABORATORY [facility] Blood Venous blood specimen / Unknown Venipuncture / Unknown 12/28/2022 11:53 AM EDT 12/28/2022 12:06 PM EDT Hamzah Mcdonald MD LAB BLOOD ORDERABLES Performing Organization Address [facility] Co de Phone Number LABORATORY [facility] [address] [place] [address] * XR CHEST 1 VIEW (12/28/2022 9:55 AM EDT) Anatomical Region Laterality Modality Chest Computed Radiogr aphy 12/28/2022 10:0 2 AM EDT Impressions 12/28/2022 9:59 AM EDT IMPRESSION No significant interval change. Stable small bilateral pleural effusions, left greater than right. Narrative 12/28/2022 9:59 AM EDT EXAM XR CHEST 1 VIEW-12/28/2022 9:55 am HISTORY concern for decompensation COMPARISON Chest radiograph 12/20/2022. TECHNIQUE Semi-upright AP view of the chest. FINDINGS Lines/Tubes/Devices: None. Lungs/Pleura: No focal consolidation. Minimal bibasilar atelectasis with small bilateral pleural effusions, left greater than right. No discernible pneumothorax. Heart/Mediastinum: Size and contours are within normal limits. Bones/Soft Tissues: No acute osseous finding. Upper Abdomen: Visualized portions are unremarkable. Procedure Note Yifan Vee MD - 12/28/2022 EXAM XR CHEST 1 VIEW-12/28/2022 9:55 am HISTORY concern for decompensation COMPARISON Chest radiograph 12/20/2022. TECHNIQUE Semi-upright AP view of the chest. FINDINGS Lines/Tubes/Devices: None. Lungs/Pleura: No focal consolidation. Minimal bibasilar atelectasis withsmall bilateral pleural effusions, left greater than right. Nodiscernible pneumothorax. Heart/Mediastinum: Size and contours are within normal limits. Bones/Soft Tissues: No acute osseous finding. Upper Abdomen: Visualized portions are unremarkable. IMPRESSION IMPRESSION No significant interval change. Stable small bilateral pleural effusions,left greater than right. Hamzah Mcdonald MD RADIOLOGY (RAD GENER AL) * (ABNORMAL) BNP, NT-PRO (12/28/2022 8:46 AM EDT) BNP, NT-Pro 336(H) <300 pg/mL 12/28/2022 9:59 AM EDT LABORATORY [facility] Blood Venous blood specimen / Unknown Venipuncture / Unknown 12/28/2022 8:46 AM EDT 12/28/2022 9:13 AM EDT Narrative LABORATORY [facility] - 12/28/2022 9:59 AM EDT Exclude Heart Failure: <300 pg/mL Diagnose Heart Failure: Age <50 yr: >450 pg/mL 50-75 yr: >900 pg/mL >75 yr: >1800 pg/mL GFR is 30-59 mL/min: >1200 pg/mL or Age-adjusted values GFR <30 mL/min: do not use, not reliable Prognostic threshold: 1000 pg/mL Hamzah Mcdonald MD LAB BLOOD ORDERABLES Performing Organization Address City/[facility]/ZIP Co de Phone Number LABORATORY [place] [address] [place] [address] * TROPONIN T, HIGH SENSITIVITY (12/28/2022 8:46 AM EDT) Troponin T, High Sensitivity 7 <=14 ng/L 12/28/2022 9:41 AM EDT LABORATORY [facility] Blood Venous blood specimen / Unknown Venipuncture / Unknown 12/28/2022 8:46 AM EDT 12/28/2022 9:13 AM EDT Hamzah Mcdonald MD LAB BLOOD ORDERABLES LABORATORY [facility] [address] [place] [address] * PHOSPHORUS (12/28/2022 8:46 AM EDT) Pathologist [facility] Phosphorus 2.6 2.5 - 4.8 mg/dL 12/28/2022 9:41 AM EDT LABORATORY [facility] Blood Venous blood specimen / Unknown Venipuncture / Unknown 12/28/2022 8:46 AM EDT 12/28/2022 9:13 AM EDT Hamzah Mcdonald MD LAB BLOOD ORDERABLES LABORATORY [facility] [address] [place] [address] * MAGNESIUM (12/28/2022 8:46 AM EDT) Pathologist [facility] Magnesium 1.7 1.5 - 2.6 mg/dL 12/28/2022 9:41 AM EDT LABORATORY [facility] Blood Venous blood specimen / Unknown Venipuncture / Unknown 12/28/2022 8:46 AM EDT 12/28/2022 9:13 AM EDT Hamzah Mcdonald MD LAB BLOOD ORDERABLES Performing Organization Address City/[facility]/ZIP Co de Phone Number LABORATORY [facility] [address] [place] [address] * (ABNORMAL) BASIC METABOLIC PANEL (12/28/2022 8:46 AM EDT) Pathologist [facility] BUN 5(L) 6 - 20 mg/dL 12/28/2022 9:41 AM EDT LABORATORY [facility] Creatinine 0.7 0.5 - 1.0 mg/dL 12/28/2022 9:41 AM EDT LABORATORY [facility] Estimated Glomerular Filtration Rate >90 >=60 mL/min 12/28/2022 9:41 AM EDT LABORATORY [facility] Comment:eGFR is calculated b ased on the CKD-EPI 2020 equation Sodium 137 135 - 146 mmol/L 12/28/2022 9:41 AM EDT LABORATORY [facility] Potassium 4.4 3.5 - 5.1 mmol/L 12/28/2022 9:41 AM EDT LAB[facility]ATORY [facility] Chloride 104 98 - 107 mmol/L 12/28/2022 9:41 AM EDT LAB[facility]ATORY [facility] CO2 24 22 - 32 mmol/L 12/28/2022 9:41 AM EDT LAB[facility]ATORY [facility] Anion Gap 9 7 - 15 mmol/L 12/28/2022 9:41 AM EDT LAB[facility]ATORY [facility] Glucose 82 70 - 120 mg/dL 12/28/2022 9:41 AM EDT LABORATORY [facility] Calcium 8.3(L) 8.4 - 10.2 mg/dL 12/28/2022 9:41 AM EDT LAB[facility]ATORY [facility] Blood Venous blood specimen / Unknown Venipuncture / Unknown 12/28/2022 8:46 AM EDT 12/28/2022 9:13 AM EDT Hamzah Mcdonald MD LAB BLOOD ORDERABLES LABORATORY [facility] [address] [place] [address] * (ABNORMAL) CBC (12/28/2022 8:46 AM EDT) WBC 7.55 4.00 - 10.80 K/uL 12/28/2022 9:21 AM EDT LABORATORY [facility] RBC 3.30 3.85 - 5.15 M/uL 12/28/2022 9:21 AM EDT LABORATORY [facility] HGB 7.5(L) 12.0 - 15.3 g/dL 12/28/2022 9:21 AM EDT LABORATORY [facility] HCT 26.9(L) 36.0 - 45.2 % 12/28/2022 9:21 AM EDT LAB[facility]ATORY [facility] MCV 81.5 81.5 - 97.5 fL 12/28/2022 9:21 AM EDT LABORATORY [facility] MCH 22.7 27.0 - 34.0 pg 12/28/2022 9:21 AM EDT LABORATORY [facility] MCHC 27.9 32.0 - 36.0 g/dL 12/28/2022 9:21 AM EDT LAB[facility]ATORY [facility] RDW 29.8 11.5 - 15.5 % 12/28/2022 9:21 AM EDT LABORATORY [facility] PLT 229 140 - 400 K/uL 12/28/2022 9:21 AM EDT LABORATORY [facility] MPV 10.6 6.6 - 11.1 fL 12/28/2022 9:21 AM EDT LABORATORY [facility] nRBCs 0 <=0 /100 WBCs 12/28/2022 9:21 AM EDT LABORATORY [facility] Blood Venous blood specimen / Unknown Venipuncture / Unknown 12/28/2022 8:46 AM EDT 12/28/2022 9:13 AM EDT Corrine Sherman DO LAB BLOOD ORDER DANELLE LABORATORY [facility] [address] [place] [address] * EKG (12/28/2022 7:50 AM EDT) 12/28/2022 7:50 AM EDT Procedure Note Andrés Reddy MD - 12/28/2022 7:50 AM EDT REASON FOR STUDY: CHEST PAIN CONCLUSIONS: Normal sinus rhythm Normal ECG When compared with ECG of 22-DEC-2022 10:43, No significant change was found Ventricular Rate: 75 Atrial Rate: 75 AR Interval: 114 QRS Duration: 74 QT/QTc: 392/437 ms P-R-T [place]: 21 : 59 : 58 degrees Hamzah Mcdonald MD EKG Performing Organization Address City/[facility]/ZIP Co de Phone Number [facility] * (ABNORMAL) CBC (12/27/2022 7:58 AM EDT) [facility] WBC 7.76 4.00 - 10.80 K/uL 12/27/2022 10:09 AM EDT LABORATORY [facility] RBC 3.70 3.85 - 5.15 M/uL 12/27/2022 10:09 AM EDT LABORATORY [facility] HGB 8.3(L) 12.0 - 15.3 g/dL 12/27/2022 10:09 AM EDT LABORATORY [facility] HCT 29.5(L) 36.0 - 45.2 % 12/27/2022 10:09 AM EDT LABORATORY [facility] MCV 79.7 81.5 - 97.5 fL 12/27/2022 10:09 AM EDT LABORATORY [facility] MCH 22.4 27.0 - 34.0 pg 12/27/2022 10:09 AM EDT LABORATORY [facility] MCHC 28.1 32.0 - 36.0 g/dL 12/27/2022 10:09 AM EDT LABORATORY [facility] RDW 29.2 11.5 - 15.5 % 12/27/2022 10:09 AM EDT LABORATORY [facility] PLT 239 140 - 400 K/uL 12/27/2022 10:09 AM EDT LABORATORY [facility] MPV 10.7 6.6 - 11.1 fL 12/27/2022 10:09 AM EDT LABORATORY [facility] nRBCs 1(H) <=0 /100 WBCs 12/27/2022 10:09 AM EDT LABORATORY [facility] Blood Venous blood specimen / Unknown Venipuncture / Unknown 12/27/2022 7:58 AM EDT 12/27/2022 8:19 AM EDT [email or web address] DO LAB BLOOD ORDER DANELLE LABORATORY [facility] [address] [place] [address] * PHOSPHORUS (12/27/2022 7:55 AM EDT) Phosphorus 2.5 2.5 - 4.8 mg/dL 12/27/2022 10:22 AM EDT LABORATORY [facility] Blood Venous blood specimen / Unknown 12/27/2022 7:55 AM EDT 12/27/2022 8:19 AM EDT [email or web address] DO LAB BLOOD ORDER DANELLE LABORATORY [facility] [address] [place] [address] * MAGNESIUM (12/27/2022 7:55 AM EDT) Magnesium 1.9 1.5 - 2.6 mg/dL 12/27/2022 10:22 AM EDT LABORATORY [facility] Blood Venous blood specimen / Unknown 12/27/2022 7:55 AM EDT 12/27/2022 8:19 AM EDT Vkingston Romanali DO LAB BLOOD ORDER DANELLE LABORATORY [facility] [address] [place] [address] * (ABNORMAL) BASIC METABOLIC PANEL (12/27/2022 7:55 AM EDT) BUN 4(L) 6 - 20 mg/dL 12/27/2022 10:22 AM EDT LABORATORY [facility] Creatinine 0.7 0.5 - 1.0 mg/dL 12/27/2022 10:22 AM EDT LABORATORY [facility] Estimated Glomerular Filtration Rate >90 >=60 mL/min 12/27/2022 10:22 AM EDT LABORATORY [facility] Comment:eGFR is calculated b ased on the CKD-EPI 2020 equation Sodium 137 135 - 146 mmol/L 12/27/2022 10:22 AM EDT LABORATORY [facility] Potassium 4.3 3.5 - 5.1 mmol/L 12/27/2022 10:22 AM EDT LABORATORY [facility] Chloride 103 98 - 107 mmol/L 12/27/2022 10:22 AM EDT LABORATORY [facility] CO2 27 22 - 32 mmol/L 12/27/2022 10:22 AM EDT LABORATORY [facility] Anion Gap 7 7 - 15 mmol/L 12/27/2022 10:22 AM EDT LABORATORY [facility] Glucose 94 70 - 120 mg/dL 12/27/2022 10:22 AM EDT LABORATORY [facility] Calcium 8.4 8.4 - 10.2 mg/dL 12/27/2022 10:22 AM EDT LABORATORY [facility] Blood Venous blood specimen / Unknown 12/27/2022 7:55 AM EDT 12/27/2022 8:19 AM EDT Corrine Romanali DO LAB BLOOD ORDER DANELLE LABORATORY [facility] [address] [place] [address] * EXTRA GREEN TOP WITH GEL (12/27/2022 7:55 AM EDT) Blood Venous blood specimen / Unknown 12/27/2022 7:55 AM EDT 12/27/2022 8:19 AM EDT Edwina Thomas MD LAB BLO OD ORDERABLES LABORATORY [facility] [address] [place] [address] * (ABNORMAL) CBC (12/26/2022 7:23 AM EDT) WBC 9.25 4.00 - 10.80 K/uL 12/26/2022 7:48 AM EDT LABORATORY [facility] RBC 3.43 3.85 - 5.15 M/uL 12/26/2022 7:48 AM EDT LABORATORY [facility] HGB 7.5(L) 12.0 - 15.3 g/dL 12/26/2022 7:48 AM EDT LABORATORY [facility] HCT 26.7(L) 36.0 - 45.2 % 12/26/2022 7:48 AM EDT LABORATORY [facility] MCV 77.8 81.5 - 97.5 fL 12/26/2022 7:48 AM EDT LABORATORY [facility] MCH 21.9 27.0 - 34.0 pg 12/26/2022 7:48 AM EDT LABORATORY [facility] MCHC 28.1 32.0 - 36.0 g/dL 12/26/2022 7:48 AM EDT LABORATORY [facility] RDW 28.0 11.5 - 15.5 % 12/26/2022 7:48 AM EDT LABORATORY [facility] PLT 207 140 - 400 K/uL 12/26/2022 7:48 AM EDT LABORATORY [facility] MPV 10.7 6.6 - 11.1 fL 12/26/2022 7:48 AM EDT LABORATORY [facility] nRBCs 1(H) <=0 /100 WBCs 12/26/2022 7:48 AM EDT LABORATORY [facility] Blood Venous blood specimen / Unknown Venipuncture / Unknown 12/26/2022 7:23 AM EDT 12/26/2022 7:40 AM EDT Corrine Sherman DO LAB BLOOD ORDER DANELLE Performing Organization Address [facility] de Phone Number LABORATORY [facility] [address] [place] [address] * PHOSPHORUS (12/26/2022 7:23 AM EDT) Phosphorus 3.1 2.5 - 4.8 mg/dL 12/26/2022 8:28 AM EDT LABORATORY [facility] Blood Venous blood specimen / Unknown Venipuncture / Unknown 12/26/2022 7:23 AM EDT 12/26/2022 7:38 AM EDT Alvin Engel MD LAB BLOOD ORDERABLES Performing Organization Address [facility] Phone Number LABORATORY [facility] [address] [place] [address] * MAGNESIUM (12/26/2022 7:23 AM EDT) Magnesium 1.9 1.5 - 2.6 mg/dL 12/26/2022 8:28 AM EDT LABORATORY [facility] Blood Venous blood specimen / Unknown Venipuncture / Unknown 12/26/2022 7:23 AM EDT 12/26/2022 7:38 AM EDT Alvin Engel MD LAB BLOOD ORDERABLES Performing Organization Address [facility] de Phone Number LABORATORY [facility] [address] [place] [address] * (ABNORMAL) HEPATIC FUNCTION PANEL (12/26/2022 7:23 AM EDT) Albumin 2.5(L) 3.8 - 5.0 g/dL 12/26/2022 8:28 AM EDT LABORATORY [facility] AST 11 10 - 35 U/L 12/26/2022 8:28 AM EDT LABORATORY [facility] Alkaline Phosphatase 62 35 - 130 U/L 12/26/2022 8:28 AM EDT LABORATORY [facility] ALT 10 10 - 35 U/L 12/26/2022 8:28 AM EDT LABORATORY [facility] Bilirubin, Total 0.5 <=1.2 mg/dL 12/26/2022 8:28 AM EDT LABORATORY [facility] Bilirubin, Direct <0.2 0.0 - 0.3 mg/dL 12/26/2022 8:28 AM EDT LABORATORY [facility] Protein 5.5(L) 6.0 - 8.3 g/dL 12/26/2022 8:28 AM EDT LAB[facility]ATORY [facility] Blood Venous blood specimen / Unknown Venipuncture / Unknown 12/26/2022 7:23 AM EDT 12/26/2022 7:38 AM EDT Alvin Engel MD LAB BLOOD ORDERABLES Performing Organization Address [facility] Co de Phone Number LABORATORY [facility] [address] [place] [address] * (ABNORMAL) CALCIUM, IONIZED, WHOLE BLOOD (12/26/2022 7:23 AM EDT) Calcium, Ionized, Whole Blood 1.05(L) 1.13 - 1.32 mmol/L 12/26/2022 7:40 AM EDT LABORATORY [facility] Blood Venous blood specimen / Unknown Venipuncture / Unknown 12/26/2022 7:23 AM EDT 12/26/2022 7:33 AM EDT Alvin Engel MD LAB BLOOD ORDERABLES Performing Organization Address [facility] Co de Phone Number LABORATORY [facility] [address] [place] [address] * (ABNORMAL) BASIC METABOLIC PANEL (12/26/2022 7:23 AM EDT) BUN 4(L) 6 - 20 mg/dL 12/26/2022 8:28 AM EDT LABORATORY [facility] Creatinine 0.7 0.5 - 1.0 mg/dL 12/26/2022 8:28 AM EDT LABORATORY [facility] Estimated Glomerular Filtration Rate >90 >=60 mL/min 12/26/2022 8:28 AM EDT LABORATORY [facility] Comment:eGFR is calculated b ased on the CKD-EPI 2020 equation Sodium 136 135 - 146 mmol/L 12/26/2022 8:28 AM EDT LABORATORY [facility] Potassium 3.1(L) 3.5 - 5.1 mmol/L 12/26/2022 8:28 AM EDT LABORATORY [facility] Chloride 95(L) 98 - 107 mmol/L 12/26/2022 8:28 AM EDT LABORATORY [facility] CO2 31 22 - 32 mmol/L 12/26/2022 8:28 AM EDT LABORATORY [facility] Anion Gap 10 7 - 15 mmol/L 12/26/2022 8:28 AM EDT LABORATORY [facility] Glucose 87 70 - 120 mg/dL 12/26/2022 8:28 AM EDT LABORATORY [facility] Calcium 7.4(L) 8.4 - 10.2 mg/dL 12/26/2022 8:28 AM EDT LAB[facility]ATORY [facility] Blood Venous blood specimen / Unknown Venipuncture / Unknown 12/26/2022 7:23 AM EDT 12/26/2022 7:38 AM EDT Alvin Engel MD LAB BLOOD ORDERABLES Performing Organization Address City/State/[facility] Co de Phone Number LABORATORY [facility] [address] [place] [address] * (ABNORMAL) CBC (12/25/2022 11:00 AM EDT) WBC 10.13 4.00 - 10.80 K/uL 12/25/2022 12:29 PM EDT LABORATORY [facility] RBC 3.56 3.85 - 5.15 M/uL 12/25/2022 12:29 PM EDT LABORATORY [facility] HGB 8.0(L) 12.0 - 15.3 g/dL 12/25/2022 12:29 PM EDT LABORATORY [facility] HCT 28.3(L) 36.0 - 45.2 % 12/25/2022 12:29 PM EDT LABORATORY [facility] MCV 79.5 81.5 - 97.5 fL 12/25/2022 12:29 PM EDT LABORATORY [facility] MCH 22.5 27.0 - 34.0 pg 12/25/2022 12:29 PM EDT LABORATORY [facility] MCHC 28.3 32.0 - 36.0 g/dL 12/25/2022 12:29 PM EDT LABORATORY [facility] RDW 27.5 11.5 - 15.5 % 12/25/2022 12:29 PM EDT LABORATORY [facility] PLT 183 140 - 400 K/uL 12/25/2022 12:29 PM EDT LABORATORY [facility] MPV 10.7 6.6 - 11.1 fL 12/25/2022 12:29 PM EDT LABORATORY [facility] nRBCs 1(H) <=0 /100 WBCs 12/25/2022 12:29 PM EDT LABORATORY [facility] Blood Venous blood specimen / Unknown Venipuncture / Unknown 12/25/2022 11:00 AM EDT 12/25/2022 11:28 AM EDT Corrine Sherman DO LAB BLOOD ORDER DANELLE LABORATORY [facility] [address] [place] [address] * PHOSPHORUS (12/25/2022 8:36 AM EDT) Phosphorus 3.1 2.5 - 4.8 mg/dL 12/25/2022 9:10 AM EDT LABORATORY [facility] Blood Venous blood specimen / Unknown Venipuncture / Unknown 12/25/2022 8:36 AM EDT 12/25/2022 8:42 AM EDT Alvin Engel MD LAB BLOOD ORDERABLES LABORATORY [facility] [address] [place] [address] * (ABNORMAL) MAGNESIUM (12/25/2022 8:36 AM EDT) Magnesium 1.3(L) 1.5 - 2.6 mg/dL 12/25/2022 9:10 AM EDT LABORATORY [facility] Blood Venous blood specimen / Unknown Venipuncture / Unknown 12/25/2022 8:36 AM EDT 12/25/2022 8:42 AM EDT Alvin Engel MD LAB BLOOD ORDERABLES LABORATORY [facility] [address] [place] [address] * (ABNORMAL) HEPATIC FUNCTION PANEL (12/25/2022 8:36 AM EDT) Albumin 2.6(L) 3.8 - 5.0 g/dL 12/25/2022 9:10 AM EDT LABORATORY [facility] AST 10 10 - 35 U/L 12/25/2022 9:10 AM EDT LABORATORY [facility] Alkaline Phosphatase 66 35 - 130 U/L 12/25/2022 9:10 AM EDT LABORATORY C ALT 8(L) 10 - 35 U/L 12/25/2022 9:10 AM EDT LABORATORY [facility] Bilirubin, Total 0.4 <=1.2 mg/dL 12/25/2022 9:10 AM EDT LABORATORY [facility] Bilirubin, Direct <0.2 0.0 - 0.3 mg/dL 12/25/2022 9:10 AM EDT LABORATORY [facility] Protein 5.5(L) 6.0 - 8.3 g/dL 12/25/2022 9:10 AM EDT LABORATORY [facility] Blood Venous blood specimen / Unknown Venipuncture / Unknown 12/25/2022 8:36 AM EDT 12/25/2022 8:42 AM EDT Alvin Engel MD LAB BLOOD ORDERABLES LABORATORY [facility] [address] [place] [address] * (ABNORMAL) CALCIUM, IONIZED, WHOLE BLOOD (12/25/2022 8:36 AM EDT) Calcium, Ionized, Whole Blood 1.05(L) 1.13 - 1.32 mmol/L 12/25/2022 8:45 AM EDT LABORATORY [facility] Blood Venous blood specimen / Unknown Venipuncture / Unknown 12/25/2022 8:36 AM EDT 12/25/2022 8:42 AM EDT Alvin Engel MD LAB BLOOD ORDERABLES Performing Organization Address City/[facility]/ZIP Co de Phone Number LABORATORY [facility] [address] [place] [address] * (ABNORMAL) BASIC METABOLIC PANEL (12/25/2022 8:36 AM EDT) BUN 6 6 - 20 mg/dL 12/25/2022 9:10 AM EDT LABORATORY [facility] Creatinine 0.8 0.5 - 1.0 mg/dL 12/25/2022 9:10 AM EDT LABORATORY [facility] Estimated Glomerular Filtration Rate 89 >=60 mL/min 12/25/2022 9:10 AM EDT LABORATORY [facility] Comment:eGFR is calculated b ased on the CKD-EPI 2020 equation Sodium 136 135 - 146 mmol/L 12/25/2022 9:10 AM EDT LABORATORY [facility] Potassium 2.7(L) 3.5 - 5.1 mmol/L 12/25/2022 9:10 AM EDT LABORATORY [facility] Chloride 95(L) 98 - 107 mmol/L 12/25/2022 9:10 AM EDT LABORATORY [facility] CO2 30 22 - 32 mmol/L 12/25/2022 9:10 AM EDT LABORATORY [facility] Anion Gap 11 7 - 15 mmol/L 12/25/2022 9:10 AM EDT LABORATORY [facility] Glucose 139(H) 70 - 120 mg/dL 12/25/2022 9:10 AM EDT LABORATORY [facility] Calcium 7.5(L) 8.4 - 10.2 mg/dL 12/25/2022 9:10 AM EDT LABORATORY [facility] Blood Venous blood specimen / Unknown Venipuncture / Unknown 12/25/2022 8:36 AM EDT 12/25/2022 8:42 AM EDT Alvin Engel MD LAB BLOOD ORDERABLES Performing Organization Address City/[facility]/ZIP Co de Phone Number LABORATORY C [address] [place] [address] * (ABNORMAL) CBC (12/24/2022 6:34 AM EDT) WBC 12.05(H) 4.00 - 10.80 K/uL 12/24/2022 7:35 AM EDT LABORATORY [facility] RBC 3.40 3.85 - 5.15 M/uL 12/24/2022 7:35 AM EDT LABORATORY [facility] HGB 7.4(L) 12.0 - 15.3 g/dL 12/24/2022 7:35 AM EDT LABORATORY [facility] HCT 26.7(L) 36.0 - 45.2 % 12/24/2022 7:35 AM EDT LABORATORY [facility] MCV 78.5 81.5 - 97.5 fL 12/24/2022 7:35 AM EDT LABORATORY [facility] MCH 21.8 27.0 - 34.0 pg 12/24/2022 7:35 AM EDT LABORATORY GM MCHC 27.7 32.0 - 36.0 g/dL 12/24/2022 7:35 AM EDT LABORATORY [facility] RDW 26.5 11.5 - 15.5 % 12/24/2022 7:35 AM EDT LABORATORY [facility] PLT 197 140 - 400 K/uL 12/24/2022 7:35 AM EDT LABORATORY [facility] MPV 10.7 6.6 - 11.1 fL 12/24/2022 7:35 AM EDT LABORATORY [facility] nRBCs 0 <=0 /100 WBCs 12/24/2022 7:35 AM EDT LABORATORY [facility] Blood Venous blood specimen / Unknown Venipuncture / Unknown 12/24/2022 6:34 AM EDT 12/24/2022 6:45 AM EDT Alvin Engel MD LAB BLOOD ORDERABLES LABORATORY [facility] [address] [place] [address] * PHOSPHORUS (12/24/2022 6:34 AM EDT) Phosphorus 2.5 2.5 - 4.8 mg/dL 12/24/2022 7:12 AM EDT LABORATORY [facility] Blood Venous blood specimen / Unknown Venipuncture / Unknown 12/24/2022 6:34 AM EDT 12/24/2022 6:45 AM EDT Alvin Engel MD LAB BLOOD ORDERABLES Performing Organization Address [facility] Co de Phone Number LABORATORY [facility] [address] [place] [address] * MAGNESIUM (12/24/2022 6:34 AM EDT) Magnesium 1.8 1.5 - 2.6 mg/dL 12/24/2022 7:12 AM EDT LABORATORY [facility] Blood Venous blood specimen / Unknown Venipuncture / Unknown 12/24/2022 6:34 AM EDT 12/24/2022 6:45 AM EDT Alvin Engel MD LAB BLOOD ORDERABLES Performing Organization Address [facility] de Phone Number LABORATORY [facility] [address] [place] [address] * (ABNORMAL) HEPATIC FUNCTION PANEL (12/24/2022 6:34 AM EDT) Albumin 2.6(L) 3.8 - 5.0 g/dL 12/24/2022 7:12 AM EDT LABORATORY [facility] AST 11 10 - 35 U/L 12/24/2022 7:12 AM EDT LABORATORY [facility] Alkaline Phosphatase 66 35 - 130 U/L 12/24/2022 7:12 AM EDT LABORATORY [facility] ALT 9(L) 10 - 35 U/L 12/24/2022 7:12 AM EDT LABORATORY [facility] Bilirubin, Total 0.4 <=1.2 mg/dL 12/24/2022 7:12 AM EDT LABORATORY [facility] Bilirubin, Direct <0.2 0.0 - 0.3 mg/dL 12/24/2022 7:12 AM EDT LABORATORY [facility] Protein 5.7(L) 6.0 - 8.3 g/dL 12/24/2022 7:12 AM EDT LABORATORY [facility] Blood Venous blood specimen / Unknown Venipuncture / Unknown 12/24/2022 6:34 AM EDT 12/24/2022 6:45 AM EDT Alvin Engel MD LAB BLOOD ORDERABLES Performing Organization Address [facility] Co de Phone Number LABORATORY [facility] [address] [place] [address] * CALCIUM, IONIZED, WHOLE BLOOD (12/24/2022 6:34 AM EDT) Pathologist [facility] Calcium, Ionized, Whole Blood 1.15 1.13 - 1.32 mmol/L 12/24/2022 6:49 AM EDT LABORATORY [facility] Blood Venous blood specimen / Unknown Venipuncture / Unknown 12/24/2022 6:34 AM EDT 12/24/2022 6:45 AM EDT Alvin Engel MD LAB BLOOD ORDERABLES Performing Organization Address [facility] de Phone Number LABORATORY [facility] [address] [place] [address] * (ABNORMAL) BASIC METABOLIC PANEL (12/24/2022 6:34 AM EDT) Pathologist [facility] BUN 7 6 - 20 mg/dL 12/24/2022 7:12 AM EDT LABORATORY [facility] Creatinine 0.7 0.5 - 1.0 mg/dL 12/24/2022 7:12 AM EDT LABORATORY [facility] Estimated Glomerular Filtration Rate >90 >=60 mL/min 12/24/2022 7:12 AM EDT LABORATORY [facility] Comment:eGFR is calculated b ased on the CKD-EPI 2020 equation Sodium 139 135 - 146 mmol/L 12/24/2022 7:12 AM EDT LABORATORY C Potassium 3.5 3.5 - 5.1 mmol/L 12/24/2022 7:12 AM EDT LABORATORY C Chloride 102 98 - 107 mmol/L 12/24/2022 7:12 AM EDT LABORATORY C CO2 28 22 - 32 mmol/L 12/24/2022 7:12 AM EDT LABORATORY [facility] Anion Gap 9 7 - 15 mmol/L 12/24/2022 7:12 AM EDT LABORATORY [facility] Glucose 107 70 - 120 mg/dL 12/24/2022 7:12 AM EDT LABORATORY C Calcium 8.2(L) 8.4 - 10.2 mg/dL 12/24/2022 7:12 AM EDT LABORATORY [facility] Blood Venous blood specimen / Unknown Venipuncture / Unknown 12/24/2022 6:34 AM EDT 12/24/2022 6:45 AM EDT Avlin Engel MD LAB BLOOD ORDERABLES LABORATORY [facility] [address] [place] [address] * (ABNORMAL) CBC (12/23/2022 5:43 PM EDT) WBC 12.18(H) 4.00 - 10.80 K/uL 12/23/2022 6:37 PM EDT LABORATORY [facility] RBC 3.50 3.85 - 5.15 M/uL 12/23/2022 6:37 PM EDT LABORATORY [facility] HGB 7.8(L) 12.0 - 15.3 g/dL 12/23/2022 6:37 PM EDT LABORATORY [facility] HCT 26.9(L) 36.0 - 45.2 % 12/23/2022 6:37 PM EDT LABORATORY [facility] MCV 76.9 81.5 - 97.5 fL 12/23/2022 6:37 PM EDT LABORATORY [facility] MCH 22.3 27.0 - 34.0 pg 12/23/2022 6:37 PM EDT LABORATORY [facility] MCHC 29.0 32.0 - 36.0 g/dL 12/23/2022 6:37 PM EDT LABORATORY [facility] RDW 25.3 11.5 - 15.5 % 12/23/2022 6:37 PM EDT LABORATORY [facility] PLT 205 140 - 400 K/uL 12/23/2022 6:37 PM EDT LABORATORY [facility] MPV 10.3 6.6 - 11.1 fL 12/23/2022 6:37 PM EDT LABORATORY [facility] nRBCs 0 <=0 /100 WBCs 12/23/2022 6:37 PM EDT LABORATORY [facility] Blood Venous blood specimen / Unknown Venipuncture / Unknown 12/23/2022 5:43 PM EDT 12/23/2022 5:59 PM EDT Mary Dickerson MD LAB BLOOD ORDERABLES LABORATORY [address] [address] * SURGICAL PATHOLOGY (12/23/2022 12:24 PM EDT) Final Diagnosis A. Colon, cecum, polypectomy: Tubular adenoma 12/26/2022 12:21 PM EDT LABORATORY [facility] Clinical History bleed / ANEMIA 12/26/2022 12:21 PM EDT LABORATORY [facility] Gross Description A. Colon, Cecum. Polyp, colon Received in formalin with a container labeled with "Jazmín Blevins", "[id number]", "1965" and " cecum colon polyp". Received is one fragment of joiner tissue measuring 0.4 cm in greatest dimension. The specimen is placed in a biopsy bag and entirely submitted in cassette A1. Gross By: MR 12/26/2022 12:21 PM EDT LABORATORY [facility] Microscopic Description Sections show glands containing pencil-shaped nuclei reaching the surface of the glands, accompanied by loss of mucin. No high-grade dysplasia is seen. 12/26/2022 12:21 PM EDT LABORATORY [facility] Sign Out Location Pathologist sign out performed at [facility] ([facility]), [facility] [place] [address]. 12/26/2022 12:21 PM EDT LABORATORY [facility] Photographic images and diagrams represent field findings in this case; they are not intended to replace a complete review of the final diagnostic report. The following statement applies to Flow Cytometry, Histology, In situ Hybridization Assays and Molecular Genetics. This test was developed and performed at [facility] and its performance characteristics determined by [facility]. It has not been cleared or approved by the U.S. Food and Drug Administration. The FDA has determined that such clearance or approval is not necessary. This test is used for clinical purposes. It should not be regarded as investigational or for research. Special stains, including histochemical stains, and studies using immunologic and NORMA methodology (where applicable) are performed with appropriate positive and negative control reactions. 12/26/2022 12:21 PM EDT LABORATORY [facility] Tissue (Colon, Cecum) Non-blood Collection / Unknown 12/23/2022 12:24 PM EDT 12/23/2022 4:39 PM EDT Luisito Reinoso DO LAB PATHOLOGY ORDERABLES LABORATORY [facility] [address] [place] [address] * COLONOSCOPY (12/23/2022 10:45 AM EDT) 12/23/2022 10:4 5 AM EDT Procedure Note Pamela Badillo DO - 12/23/2022 10:45 AM EDT [facility] Patient Name: Jazmín Blevins Procedure Date: 12/23/2022 10:45 AM Date of : 1965 Admit Type: Inpatient Note Status:Finalized Date of : 1965 Admit Type: Inpatient Age: 57 Room: Endo - Room 4 Gender: Female Note Status: Finalized Procedure: Colonoscopy Indications: Iron deficiency anemia Providers: Enma Reinoso DO (Doctor), Marbin Rizo (Fellow), Poppy Knutson RN Patient Profile: This is a 57 year old female. Refer to note inpatient chart for documentation of history and physical. Referring MD: Pamela Badillo Medicines: General Anesthesia Complications: No immediate complications. Procedure: Pre-Anesthesia Assessment: - Prior to the procedure, a History and Physicalwas performed, and patient medications, allergies and sensitivities werereviewed. The patient's tolerance of previous anesthesia was reviewed. - The risks and benefits of the procedure and thesedation options and risks were discussed with the patient. All questions wereanswered and informed consent was obtained. - Patient identification and proposed procedurewere verified prior to the procedure by the physician, the nurse and the cork cutter.The procedure was verified in the endoscopy suite. - The supervising physician was present for theentire procedure from scope insertion until scope withdrawal. After I obtained informed consent, the scope waspassed under direct vision. All instruments were visually inspected immediatelybefore and after removal from the patient to ensure they are fully intact. Throughout the procedure, the patient's bloodpressure, pulse, and oxygen saturations were monitored continuously. The [id number] was introduced through the anus and advanced to the cecum,identified by appendiceal orifice and ileocecal valve. The colonoscopy was performedwithout difficulty. The patient tolerated the procedure well. The quality of thebowel preparation was adequate to identify polyps 6 mm and larger in size. Findings & Specimens: Multiple medium-sized diffuse angiodysplastic lesions withoutbleeding were found in the transverse colon and in the ascending colon. Coagulation for bleeding preventionusing argon plasma at 0.8 liters/minute and 20 arenas was successful. A 3 mm polyp was found in the cecum. The polyp was sessile. The polypwas removed with a cold biopsy forceps. Resection and retrieval were complete. The pathologyspecimen was placed into Bottle A. A previous clip found in the transverse colon. A localized area of moderately erythematous mucosa was found in theascending colon. Large, non-bleeding rectal varices were found. Non-bleeding internal hemorrhoids were found during retroflexion. Thehemorrhoids were medium-sized. Hemorrhoids were found on perianal exam. Impression: - Multiple non-bleeding colonic angiodysplasticlesions. Treated with argon plasma coagulation (APC). - One 3 mm polyp in the cecum, removed with a coldbiopsy forceps. Resected and retrieved. - Previous stent in the transverse colon. - Erythematous mucosa in the ascending colon. - Rectal varices. - Non-bleeding internal hemorrhoids. - Hemorrhoids found on perianal exam. Recommendation: - [facility] patient to [facility]. - follow GI consult team recommendation. - Repeat colonoscopy in 3 years for surveillance asrecommended on last colonoscopy. Enma Reinoso DO 12/23/2022 12:39:31 PM This report has been signed electronically. Marbin Massey, Estimated Blood Loss: Estimated blood loss: none. Pamela Badillo DO [facility] * (ABNORMAL) CBC (12/23/2022 6:29 AM EDT) WBC 10.97(H) 4.00 - 10.80 K/uL 12/23/2022 6:40 AM EDT LABORATORY [facility] RBC 3.44 3.85 - 5.15 M/uL 12/23/2022 6:40 AM EDT LAB[facility]ATORY [facility] HGB 7.5(L) 12.0 - 15.3 g/dL 12/23/2022 6:40 AM EDT LAB[facility]ATORY [facility] HCT 26.6(L) 36.0 - 45.2 % 12/23/2022 6:40 AM EDT LAB[facility]ATORY [facility] MCV 77.3 81.5 - 97.5 fL 12/23/2022 6:40 AM EDT LAB[facility]ATORY [facility] MCH 21.8 27.0 - 34.0 pg 12/23/2022 6:40 AM EDT LABORATORY C MCHC 28.2 32.0 - 36.0 g/dL 12/23/2022 6:40 AM EDT LAB[facility]ATORY [facility] RDW 24.3 11.5 - 15.5 % 12/23/2022 6:40 AM EDT LAB[facility]ATORY [facility] PLT 186 140 - 400 K/uL 12/23/2022 6:40 AM EDT LAB[facility]ATORY [facility] MPV 10.5 6.6 - 11.1 fL 12/23/2022 6:40 AM EDT LABORATORY C nRBCs 0 <=0 /100 WBCs 12/23/2022 6:40 AM EDT LABORATORY [facility] Blood Venous blood specimen / Unknown Venipuncture / Unknown 12/23/2022 6:29 AM EDT 12/23/2022 6:35 AM EDT Mary Dickerson MD LAB BLOOD ORDERABLES LAB[facility]ATORY [facility] [address], [place] [id number] * (ABNORMAL) PHOSPHORUS (12/23/2022 6:29 AM EDT) Pathologist [facility] Phosphorus 2.2(L) 2.5 - 4.8 mg/dL 12/23/2022 7:04 AM EDT LABORATORY [facility] Blood Venous blood specimen / Unknown Venipuncture / Unknown 12/23/2022 6:29 AM EDT 12/23/2022 6:35 AM EDT Alvin Engel MD LAB BLOOD ORDERABLES Performing Organization Address [facility] Co de Phone Number LABORATORY [facility] [address] [place] [address] * MAGNESIUM (12/23/2022 6:29 AM EDT) Magnesium 1.7 1.5 - 2.6 mg/dL 12/23/2022 7:04 AM EDT LABORATORY [facility] Blood Venous blood specimen / Unknown Venipuncture / Unknown 12/23/2022 6:29 AM EDT 12/23/2022 6:35 AM EDT Alvin Engel MD LAB BLOOD ORDERABLES Performing Organization Address [facility] de Phone Number LABORATORY [place] [address] [place] [address] * (ABNORMAL) HEPATIC FUNCTION PANEL (12/23/2022 6:29 AM EDT) Albumin 2.7(L) 3.8 - 5.0 g/dL 12/23/2022 7:04 AM EDT LAB[facility]ATORY [facility] AST 12 10 - 35 U/L 12/23/2022 7:04 AM EDT LAB[facility]ATORY [facility] Alkaline Phosphatase 65 35 - 130 U/L 12/23/2022 7:04 AM EDT LAB[facility]ATORY [facility] ALT 8(L) 10 - 35 U/L 12/23/2022 7:04 AM EDT LAB[facility]ORY [facility] Bilirubin, Total 0.5 <=1.2 mg/dL 12/23/2022 7:04 AM EDT LAB[facility]ATORY [facility] Bilirubin, Direct <0.2 0.0 - 0.3 mg/dL 12/23/2022 7:04 AM EDT LAB[facility]ORY [facility] Protein 5.8(L) 6.0 - 8.3 g/dL 12/23/2022 7:04 AM EDT LABORATORY [facility] Blood Venous blood specimen / Unknown Venipuncture / Unknown 12/23/2022 6:29 AM EDT 12/23/2022 6:35 AM EDT Alvin Engel MD LAB BLOOD ORDERABLES Performing Organization Address [facility]/ZIP Co de Phone Number LABORATORY [facility] [address] [place] [address] * CALCIUM, IONIZED, WHOLE BLOOD (12/23/2022 6:29 AM EDT) Calcium, Ionized, Whole Blood 1.16 1.13 - 1.32 mmol/L 12/23/2022 6:38 AM EDT LABORATORY [facility] Blood Venous blood specimen / Unknown Venipuncture / Unknown 12/23/2022 6:29 AM EDT 12/23/2022 6:35 AM EDT Alvin Engel MD LAB BLOOD ORDERABLES Performing Organization Address [facility] Co de Phone Number LABORATORY [facility] [address] [place] [address] * (ABNORMAL) BASIC METABOLIC PANEL (12/23/2022 6:29 AM EDT) BUN 13 6 - 20 mg/dL 12/23/2022 7:04 AM EDT LABORATORY [facility] Creatinine 0.9 0.5 - 1.0 mg/dL 12/23/2022 7:04 AM EDT LABORATORY [facility] Estimated Glomerular Filtration Rate 80 >=60 mL/min 12/23/2022 7:04 AM EDT LABORATORY [facility] Comment:eGFR is calculated b ased on the CKD-EPI 2020 equation Sodium 138 135 - 146 mmol/L 12/23/2022 7:04 AM EDT LABORATORY [facility] Potassium 3.2(L) 3.5 - 5.1 mmol/L 12/23/2022 7:04 AM EDT LABORATORY [facility] Chloride 100 98 - 107 mmol/L 12/23/2022 7:04 AM EDT LABORATORY C CO2 29 22 - 32 mmol/L 12/23/2022 7:04 AM EDT LAB[facility]ORY [facility] Anion Gap 9 7 - 15 mmol/L 12/23/2022 7:04 AM EDT LAB[facility]ORY [facility] Glucose 95 70 - 120 mg/dL 12/23/2022 7:04 AM EDT LAB[facility]ATORY [facility] Calcium 8.1(L) 8.4 - 10.2 mg/dL 12/23/2022 7:04 AM EDT LABORATORY [facility] Blood Venous blood specimen / Unknown Venipuncture / Unknown 12/23/2022 6:29 AM EDT 12/23/2022 6:35 AM EDT Alvin Engel MD LAB BLOOD ORDERABLES LABORATORY [facility] [address] [place] [address] * (ABNORMAL) CBC (12/22/2022 6:23 PM EDT) WBC 9.67 4.00 - 10.80 K/uL 12/22/2022 7:37 PM EDT LAB[facility]ORY [facility] RBC 3.61 3.85 - 5.15 M/uL 12/22/2022 7:37 PM EDT LAB[facility]ORY [facility] HGB 7.9(L) 12.0 - 15.3 g/dL 12/22/2022 7:37 PM EDT LAB[facility]ORY [facility] HCT 27.2(L) 36.0 - 45.2 % 12/22/2022 7:37 PM EDT LAB[facility] MCV 75.3 81.5 - 97.5 fL 12/22/2022 7:37 PM EDT LAB[facility] MCH 21.9 27.0 - 34.0 pg 12/22/2022 7:37 PM EDT LAB[facility] MCHC 29.0 32.0 - 36.0 g/dL 12/22/2022 7:37 PM EDT LAB[facility] RDW 23.7 11.5 - 15.5 % 12/22/2022 7:37 PM EDT LAB[facility]ORY [facility] PLT 191 140 - 400 K/uL 12/22/2022 7:37 PM EDT LAB[facility] MPV 10.8 6.6 - 11.1 fL 12/22/2022 7:37 PM EDT LABORATORY [facility] nRBCs 0 <=0 /100 WBCs 12/22/2022 7:37 PM EDT LAB[facility]ORY [facility] Blood Venous blood specimen / Unknown Venipuncture / Unknown 12/22/2022 6:23 PM EDT 12/22/2022 6:39 PM EDT Mary Dickerson MD LAB BLOOD ORDERABLES Performing Organization Address City/[facility]/ZIP Co de Phone Number LABORATORY [facility] [address] [place] [address] * DIRECT CYNTHIA (12/22/2022 12:46 PM EDT) Direct Cynthia Negative 12/22/2022 1:20 PM EDT LABORATORY [facility] BLOOD BANK Blood Venous blood specimen / Unknown Venipuncture / Unknown 12/22/2022 12:46 PM EDT 12/22/2022 12:53 PM EDT Mary Dickerson MD LAB BLOOD BANK TEST ORDERABLES Performing Organization Address [facility] de Phone Number LABORATORY [facility] BLOOD BANK [address] [place] [address] * HAPTOGLOBIN (12/22/2022 12:46 PM EDT) Haptoglobin 85 30 - 200 mg/dL 12/22/2022 2:00 PM EDT LABORATORY [facility] Blood Venous blood specimen / Unknown Venipuncture / Unknown 12/22/2022 12:46 PM EDT 12/22/2022 1:08 PM EDT Mary Dickerson MD LAB BLOOD ORDERABLES Performing Organization Address [facility] Co de Phone Number LABORATORY [facility] [address] [place] [address] * LD (12/22/2022 12:46 PM EDT) LD 176 <=250 U/L 12/22/2022 2:0 0 PM EDT LAB[facility]ORY [facility] Blood Venous blood specimen / Unknown Venipuncture / Unknown 12/22/2022 12:46 PM EDT 12/22/2022 1:08 PM EDT Mary Dickerson MD LAB BLOOD ORDERABLES Performing Organization Address [facility] Co de Phone Number LABORATORY [facility] [address] [place] [address] * (ABNORMAL) RETICULOCYTE PANEL (12/22/2022 4:37 AM EDT) Reticulocyte Percent 1.67 0.80 - 1.90 % 12/22/2022 12:05 PM EDT LABORATORY [facility] Absolute Reticulocyte 59.6 31.3 - 100.1 K/uL 12/22/2022 12:05 PM EDT LAB[facility]ORY [facility] Immature Reticuloctye Fraction 51.6(H) 2.5 - 20.6 % 12/22/2022 12:05 PM EDT LAB[facility]ORY [facility] Reticulocyte Hemoglobin 24.2(L) 29.7 - 37.4 pg 12/22/2022 12:05 PM EDT LAB[facility]ATORY [facility] Blood Venous blood specimen / Unknown Venipuncture / Unknown 12/22/2022 4:37 AM EDT 12/22/2022 4:44 AM EDT Mary Dickerson MD LAB BLOOD ORDERABLES Performing Organization Address [facility] de Phone Number LABORATORY [facility] [address] [place] [address] * (ABNORMAL) CBC (12/22/2022 4:37 AM EDT) WBC 9.42 4.00 - 10.80 K/uL 12/22/2022 4:52 AM EDT LAB[facility]ATORY [facility] RBC 3.65 3.85 - 5.15 M/uL 12/22/2022 4:52 AM EDT LAB[facility]ORY [facility] HGB 7.8(L) 12.0 - 15.3 g/dL 12/22/2022 4:52 AM EDT LAB[facility]ORY [facility] HCT 27.7(L) 36.0 - 45.2 % 12/22/2022 4:52 AM EDT LABORATORY [facility] MCV 75.9 81.5 - 97.5 fL 12/22/2022 4:52 AM EDT LABORATORY [facility] MCH 21.4 27.0 - 34.0 pg 12/22/2022 4:52 AM EDT LABORATORY [facility] MCHC 28.2 32.0 - 36.0 g/dL 12/22/2022 4:52 AM EDT LABORATORY [facility] RDW 22.1 11.5 - 15.5 % 12/22/2022 4:52 AM EDT LABORATORY [facility] PLT 218 140 - 400 K/uL 12/22/2022 4:52 AM EDT LABORATORY [facility] MPV 11.5 6.6 - 11.1 fL 12/22/2022 4:52 AM EDT LABORATORY [facility] nRBCs 0 <=0 /100 WBCs 12/22/2022 4:52 AM EDT LABORATORY [facility] Blood Venous blood specimen / Unknown Venipuncture / Unknown 12/22/2022 4:37 AM EDT 12/22/2022 4:44 AM EDT Mary Dickerson MD LAB BLOOD ORDERABLES LABORATORY [facility] [address] [place] [address] * (ABNORMAL) CORTISOL (12/22/2022 4:37 AM EDT) Cortisol 21.3(H) 2.5 - 19.5 ug/dL 12/22/2022 5:47 AM EDT LABORATORY [facility] Comment: AM Reference Range: 4.8 - 19.5 ug/dL PM Reference Range: 2.5 - 11.9 ug/dL Blood Venous blood specimen / Unknown Venipuncture / Unknown 12/22/2022 4:37 AM EDT 12/22/2022 4:44 AM EDT Mary Dickerson MD LAB BLOOD ORDERABLES LABORATORY [facility] [address] [place] [address] * PHOSPHORUS (12/22/2022 4:37 AM EDT) Phosphorus 3.3 2.5 - 4.8 mg/dL 12/22/2022 5:18 AM EDT LAB[facility]ATORY [facility] Blood Venous blood specimen / Unknown Venipuncture / Unknown 12/22/2022 4:37 AM EDT 12/22/2022 4:44 AM EDT Alvin Engel MD LAB BLOOD ORDERABLES Performing Organization Address [facility] Co de Phone Number LABORATORY [facility] [address] [place] [address] * MAGNESIUM (12/22/2022 4:37 AM EDT) Magnesium 2.0 1.5 - 2.6 mg/dL 12/22/2022 5:18 AM EDT LAB[facility]ORY [facility] Blood Venous blood specimen / Unknown Venipuncture / Unknown 12/22/2022 4:37 AM EDT 12/22/2022 4:44 AM EDT Alvin Engel MD LAB BLOOD ORDERABLES Performing Organization Address [facility] de Phone Number LABORATORY [address] [address] * (ABNORMAL) HEPATIC FUNCTION PANEL (12/22/2022 4:37 AM EDT) Albumin 3.0(L) 3.8 - 5.0 g/dL 12/22/2022 5:18 AM EDT LAB[facility]ATORY [facility] AST 10 10 - 35 U/L 12/22/2022 5:18 AM EDT LAB[facility]ORY [facility] Alkaline Phosphatase 71 35 - 130 U/L 12/22/2022 5:18 AM EDT LAB[facility]ORY [facility] ALT 8(L) 10 - 35 U/L 12/22/2022 5:18 AM EDT LAB[facility]ORY [facility] Bilirubin, Total 0.7 <=1.2 mg/dL 12/22/2022 5:18 AM EDT LAB[facility]ORY [facility] Bilirubin, Direct 0.3 0.0 - 0.3 mg/dL 12/22/2022 5:18 AM EDT LAB[facility]ORY [facility] Protein 6.3 6.0 - 8.3 g/dL 12/22/2022 5:18 AM EDT LABORATORY C Blood Venous blood specimen / Unknown Venipuncture / Unknown 12/22/2022 4:37 AM EDT 12/22/2022 4:44 AM EDT Alvin Engel MD LAB BLOOD ORDERABLES Performing Organization Address [facility] Co de Phone Number LABORATORY [facility] [address] [place] [address] * (ABNORMAL) CALCIUM, IONIZED, WHOLE BLOOD (12/22/2022 4:37 AM EDT) Calcium, Ionized, Whole Blood 1.11(L) 1.13 - 1.32 mmol/L 12/22/2022 4:50 AM EDT LABORATORY C Blood Venous blood specimen / Unknown Venipuncture / Unknown 12/22/2022 4:37 AM EDT 12/22/2022 4:44 AM EDT Alvin Engel MD LAB BLOOD ORDERABLES Performing Organization Address [facility] de Phone Number LABORATORY [place] [address] [place] [address] * (ABNORMAL) BASIC METABOLIC PANEL (12/22/2022 4:37 AM EDT) BUN 20 6 - 20 mg/dL 12/22/2022 5:18 AM EDT LABORATORY [facility] Creatinine 1.0 0.5 - 1.0 mg/dL 12/22/2022 5:18 AM EDT LAB[facility]ORY [facility] Estimated Glomerular Filtration Rate 63 >=60 mL/min 12/22/2022 5:18 AM EDT LABORATORY [facility] Comment:eGFR is calculated b ased on the CKD-EPI 2020 equation Sodium 136 135 - 146 mmol/L 12/22/2022 5:18 AM EDT LAB[facility]ORY [facility] Potassium 3.5 3.5 - 5.1 mmol/L 12/22/2022 5:18 AM EDT LAB[facility] Chloride 99 98 - 107 mmol/L 12/22/2022 5:18 AM EDT LAB[facility] CO2 27 22 - 32 mmol/L 12/22/2022 5:18 AM EDT LAB[facility] Anion Gap 10 7 - 15 mmol/L 12/22/2022 5:18 AM EDT LAB[facility] Glucose 157(H) 70 - 120 mg/dL 12/22/2022 5:18 AM EDT LAB[facility]ORY [facility] Calcium 8.2(L) 8.4 - 10.2 mg/dL 12/22/2022 5:18 AM EDT LABORATORY [facility] Blood Venous blood specimen / Unknown Venipuncture / Unknown 12/22/2022 4:37 AM EDT 12/22/2022 4:44 AM EDT Alvin Engel MD LAB BLOOD ORDERABLES LABORATORY [facility] [address] [place] [address] * (ABNORMAL) CBC (12/21/2022 8:21 PM EDT) Pathologist [facility] WBC 9.27 4.00 - 10.80 K/uL 12/21/2022 8:53 PM EDT LAB[facility] RBC 3.86 3.85 - 5.15 M/uL 12/21/2022 8:53 PM EDT LAB[facility] HGB 8.4(L) 12.0 - 15.3 g/dL 12/21/2022 8:53 PM EDT LAB[facility] HCT 28.8(L) 36.0 - 45.2 % 12/21/2022 8:53 PM EDT LAB[facility] MCV 74.6 81.5 - 97.5 fL 12/21/2022 8:53 PM EDT LAB[facility] MCH 21.8 27.0 - 34.0 pg 12/21/2022 8:53 PM EDT LAB[facility] MCHC 29.2 32.0 - 36.0 g/dL 12/21/2022 8:53 PM EDT LAB[facility] RDW 22.5 11.5 - 15.5 % 12/21/2022 8:53 PM EDT LAB[facility] PLT 234 140 - 400 K/uL 12/21/2022 8:53 PM EDT LAB[facility] MPV 10.9 6.6 - 11.1 fL 12/21/2022 8:53 PM EDT LABORATORY [facility] nRBCs 0 <=0 /100 WBCs 12/21/2022 8:53 PM EDT LABORATORY [facility] Blood Venous blood specimen / Unknown Venipuncture / Unknown 12/21/2022 8:21 PM EDT 12/21/2022 8:26 PM EDT Mary Dickerson MD LAB BLOOD ORDERABLES LABORATORY [facility] [address] [place] [address] * UPPER GI ENDOSCOPY (12/21/2022 2:09 PM EDT) 12/21/2022 2:09 PM EDT Procedure Note Pamela Badillo DO - 12/21/2022 2:09 PM EDT [facility] Patient Name: Jazmín Blevins Procedure Date: 12/21/2022 2:09 PM Date of : 1965 Admit Type: Inpatient Note Status:Finalized Date of : 1965 Admit Type: Inpatient Age: 57 Room: ICU4 Gender: Female Note Status: Finalized Procedure: Upper GI endoscopy Indications: Acute post hemorrhagic anemia, Suspected uppergastrointestinal bleeding, Abnormal CT of the GI tract Providers: Wilmer Bhatia MD (Doctor), Armando Hernandez DO(Fellow), Livia Kwong RN, Randi Bell, Rn Cardiology Patient Profile: This is a 60 year old male. Refer to note inpatient chart for documentation of history and physical. Referring MD: Pamela Badillo, Naomie Magallanes MD, Geraldine Chavis DO Medicines: Per ICU Monitored Anesthesia Care Complications: No immediate complications. Procedure: Pre-Anesthesia Assessment: - Prior to the procedure, a History and Physicalwas performed, and patient medications, allergies and sensitivities werereviewed. The patient's tolerance of previous anesthesia was reviewed. - The risks and benefits of the procedure and thesedation options and risks were discussed with the patient. All questions wereanswered and informed consent was obtained. - Patient identification and proposed procedurewere verified prior to the procedure by the physician and the nurse. The procedure wasverified in the pre-procedure area in the procedure room. - The medication list for this patient has beenreviewed prior to the procedure and has been determined that the patient may proceedwith the planned study. Any medication changes made as a result of the findingsof this procedure have been discussed with the patient and/or accounting representative atthe time of discharge from the department. - The supervising physician was present for theentire procedure from scope insertion until scope withdrawal. - The risks and benefits of the procedure and thesedation options and risks were discussed with the patient. All questions wereanswered and informed consent was obtained. - Patient identification and proposed procedurewere verified prior to the procedure by the physician and the nurse. The procedure wasverified ICU. After obtaining informed consent, the endoscope waspassed under direct vision. All instruments were visually inspected immediatelybefore and after removal from the patient to ensure they are fully intact. Throughout the procedure, the patient's bloodpressure, pulse, and oxygen saturations were monitored continuously. The [id number] ([id number]) was introduced through the mouth, and advanced to the second part ofduodenum. The upper GI endoscopy was accomplished without difficulty. The patienttolerated the procedure fairly well. Findings & Specimens: Patchy, yellow plaques were found in the middle third of theesophagus and in the lower third of the esophagus. LA Grade A (one or more mucosal breaks less than 5 mm, not extendingbetween tops of 2 mucosal folds) esophagitis with no bleeding was found at the gastroesophagealjunction. A 3 cm hiatal hernia was present. The Z-line was regular and was found 36 cm from the incisors. The gastroesophageal flap valve was visualized endoscopically andclassified as Hill Grade IV (no fold, wide open lumen, hiatal hernia present). Small (< 5 mm) varices were found in the distal esophagus. Nobleeding and no high risk stigmata of bleeding was found. The entire examined stomach was normal. The examined duodenum was normal. Impression: - Esophageal plaques were found, consistent withcandidiasis. - LA Grade A reflux esophagitis with no bleeding. - 3 cm hiatal hernia. - Z-line regular, 36 cm from the incisors. - Gastroesophageal flap valve classified as HillGrade IV (no fold, wide open lumen, hiatal hernia present). - Small (< 5 mm) esophageal varices. - Normal stomach. - Normal examined duodenum. - No specimens collected. - No obvious cause for patient's severe acuteanemia found on this endoscopy. Recommendation: - Treat scott esophagitis. - Follow an antireflux regimen. Continue PPItherapy. May discontinue IV octreotide. - Repeat upper endoscopy in 1 year forsurveillance. - Further recommendations per inpatient GI consultteam. Wilmer Bhatia MD 12/21/2022 4:59:37 PM This report has been signed electronically. Armando Hernandez DO Estimated Blood Loss: Estimated blood loss: none. Pamela Badillo DO GASTRO UPPER * ECHO, COMPLETE (2D), TRANS-THORACIC (12/21/2022 1:30 PM EDT) [facility] LEFT VENTRICULAR EJECTION FRACTION 55 % [facility] 12/21/2022 12:3 7 PM EDT Cristi Clay PA-C ECHOCARDIOLOGY [facility] * T4, FREE (12/21/2022 11:32 AM EDT) Pathologist [facility] T4, Free 1.7 0.9 - 1.7 ng/dL 12/21/2022 6:45 PM EDT LABORATORY [facility] Blood Venous blood specimen / Unknown Venipuncture / Unknown 12/21/2022 11:32 AM EDT 12/21/2022 11:46 AM EDT Mary Dickerson MD LAB BLOOD ORDERABLES LABORATORY [facility] [address] [place], [place] [id number] * (ABNORMAL) SCHISTOCYTES, TECHNOLOGIST REVIEW (12/21/2022 11:32 AM EDT) Schistocytes, Technologist Review Moderate( A) None Seen 12/21/2022 9:57 PM EDT LABORATORY [facility] Blood Venous blood specimen / Unknown Venipuncture / Unknown 12/21/2022 11:32 AM EDT 12/21/2022 11:47 AM EDT Mary Dickerson MD LAB BLOOD ORDERABLES Performing Organization Address [facility]/ZIP Co de Phone Number LABORATORY [facility] [address] [place] [address] * (ABNORMAL) TSH WITH FREE T4 IF INDICATED (12/21/2022 11:32 AM EDT) Pathologist [facility] TSH 0.09(L) 0.27 - 4.20 uIU/mL 12/21/2022 5:59 PM EDT LABORATORY [facility] Blood Venous blood specimen / Unknown Venipuncture / Unknown 12/21/2022 11:32 AM EDT 12/21/2022 11:46 AM EDT Mary Dickerson MD LAB BLOOD ORDERABLES Performing Organization Address [facility] Co de Phone Number LABORATORY [facility] [address] [place] [address] * (ABNORMAL) CBC (12/21/2022 11:32 AM EDT) WBC 10.13 4.00 - 10.80 K/uL 12/21/2022 11:56 AM EDT LABORATORY [facility] RBC 3.58 3.85 - 5.15 M/uL 12/21/2022 11:56 AM EDT LABORATORY [facility] HGB 7.5(L) 12.0 - 15.3 g/dL 12/21/2022 11:56 AM EDT LABORATORY [facility] HCT 27.0(L) 36.0 - 45.2 % 12/21/2022 11:56 AM EDT LABORATORY [facility] MCV 75.4 81.5 - 97.5 fL 12/21/2022 11:56 AM EDT LABORATORY [facility] MCH 20.9 27.0 - 34.0 pg 12/21/2022 11:56 AM EDT LABORATORY [facility] MCHC 27.8 32.0 - 36.0 g/dL 12/21/2022 11:56 AM EDT LABORATORY [facility] RDW 21.9 11.5 - 15.5 % 12/21/2022 11:56 AM EDT LABORATORY [facility] PLT 215 140 - 400 K/uL 12/21/2022 11:56 AM EDT LABORATORY [facility] MPV 10.3 6.6 - 11.1 fL 12/21/2022 11:56 AM EDT LABORATORY [facility] nRBCs 0 <=0 /100 WBCs 12/21/2022 11:56 AM EDT LABORATORY [facility] Blood Venous blood specimen / Unknown Venipuncture / Unknown 12/21/2022 11:32 AM EDT 12/21/2022 11:47 AM EDT Cristi Clay PA-C LAB BLOOD BRYCE CEVALLOS Performing Organization Address City/[facility]/ZIP Co de Phone Number LABORATORY [place] [address] [place] [address] * CALCIUM, IONIZED, WHOLE BLOOD (12/21/2022 11:32 AM EDT) Calcium, Ionized, Whole Blood 1.14 1.13 - 1.32 mmol/L 12/21/2022 11:48 AM EDT LABORATORY [facility] Blood Venous blood specimen / Unknown Venipuncture / Unknown 12/21/2022 11:32 AM EDT 12/21/2022 11:43 AM EDT Cristi Clay PA-C LAB BLOOD ORDRosmery CEVALLOS LABORATORY [place] [address] [place] [address] * PHOSPHORUS (12/21/2022 11:32 AM EDT) Phosphorus 3.0 2.5 - 4.8 mg/dL 12/21/2022 12:20 PM EDT LABORATORY [facility] Blood Venous blood specimen / Unknown Venipuncture / Unknown 12/21/2022 11:32 AM EDT 12/21/2022 11:46 AM EDT Cristi Clay PA-C LAB BLOOD ORDRosmery REDNO Performing Organization Address City/[facility]/ZIP Co de Phone Number LABORATORY [facility] [address] [place] [address] * (ABNORMAL) MAGNESIUM (12/21/2022 11:32 AM EDT) Magnesium 2.9(H) 1.5 - 2.6 mg/dL 12/21/2022 12:20 PM EDT LABORATORY C Blood Venous blood specimen / Unknown Venipuncture / Unknown 12/21/2022 11:32 AM EDT 12/21/2022 11:46 AM EDT Cristi Clya PA-C LAB BLOOD SWOOPERosmery BAN Performing Organization Address [facility]/ZIP Co de Phone Number LABORATORY [facility] [address] [place] [address] * (ABNORMAL) BASIC METABOLIC PANEL (12/21/2022 11:32 AM EDT) BUN 27(H) 6 - 20 mg/dL 12/21/2022 12:20 PM EDT LABORATORY [facility] Creatinine 1.6(H) 0.5 - 1.0 mg/dL 12/21/2022 12:20 PM EDT LABORATORY [facility] Estimated Glomerular Filtration Rate 38(L) >=60 mL/min 12/21/2022 12:20 PM EDT LABORATORY [facility] Comment:eGFR is calculated b ased on the CKD-EPI 2020 equation Sodium 133(L) 135 - 146 mmol/L 12/21/2022 12:20 PM EDT LABORATORY [facility] Potassium 4.0 3.5 - 5.1 mmol/L 12/21/2022 12:20 PM EDT LABORATORY [facility] Chloride 99 98 - 107 mmol/L 12/21/2022 12:20 PM EDT LAB[facility]ATORY [facility] CO2 23 22 - 32 mmol/L 12/21/2022 12:20 PM EDT LAB[facility]ATORY [facility] Anion Gap 11 7 - 15 mmol/L 12/21/2022 12:20 PM EDT LABORATORY [facility] Glucose 153(H) 70 - 120 mg/dL 12/21/2022 12:20 PM EDT LABORATORY C Calcium 7.9(L) 8.4 - 10.2 mg/dL 12/21/2022 12:20 PM EDT LABORATORY [facility] Blood Venous blood specimen / Unknown Venipuncture / Unknown 12/21/2022 11:32 AM EDT 12/21/2022 11:46 AM EDT Cristi Clay PA-C LAB BLOOD ORDE BAN [facility] Organization Address City/State/ZIP Co de Phone Number LABORATORY [facility] [address] [place] [address] * RESPIRATORY PATHOGEN PANEL, PCR (12/21/2022 6:15 AM EDT) [facility] Adenovirus by PCR Negative Negative 023 7:51 AM EDT LABORATORY [facility] Coronavirus 229E by PCR Negative Negative 12/21/2022 7:51 AM EDT LABORATORY [facility] Coronavirus HKU1 by PCR Negative Negative 12/21/2022 7:51 AM EDT LABORATORY [facility] Coronavirus NL63 by PCR Negative Negative 12/21/2022 7:51 AM EDT LABORATORY [facility] Coronavirus OC43 by PCR Negative Negative 12/21/2022 7:51 AM EDT LABORATORY [facility] Coronavirus SARS-CoV-2 by PCR Negative Negative 12/21/2022 7:51 AM EDT LABORATORY [facility] Human Metapneumovirus by PCR Negative Negative 12/21/2022 7:51 AM EDT LABORATORY [facility] Rhinovirus/Enterovi lauren by PCR Negative Negative 12/21/2022 7:51 AM EDT LABORATORY C Influenza A Virus by PCR Negative Negative 12/21/2022 7:51 AM EDT LABORATORY [facility] Influenza B Virus by PCR Negative Negative 12/21/2022 7:51 AM EDT LABORATORY [facility] Parainfluenza Virus 1 by PCR Negative Negative 12/21/2022 7:51 AM EDT LABORATORY [facility] Parainfluenza Virus 2 by PCR Negative Negative 12/21/2022 7:51 AM EDT LABORATORY C Parainfluenza Virus 3 by PCR Negative Negative 12/21/2022 7:51 AM EDT LABORATORY [facility] Parainfluenza Virus 4 by PCR Negative Negative 12/21/2022 7:51 AM EDT LABORATORY [facility] Respiratory Syncytial Virus by PCR Negative Negative 12/21/2022 7:51 AM EDT LABORATORY [facility] Bordetella pertussis by PCR Negative Negative 12/21/2022 7:51 AM EDT LABORATORY [facility] Chlamydia pneumoniae by PCR Negative Negative 12/21/2022 7:51 AM EDT LABORATORY [facility] Mycoplasma pneumoniae by PCR Negative Negative 12/21/2022 7:51 AM EDT LABORATORY [facility] Bordetella parapertussis by PCR Negative Negative 12/21/2022 7:51 AM EDT LABORATORY [facility] Comment: The primers that detect Rhinovirus may cross react with some Enterorviruses. The validation of bronchial specimens, tracheal aspirates, and throats for this assay was developed and performance characteristics determined by [facility]. The validation of alternate specimen types has not been cleared or approved by the U.S. Food and Drug Administration (FDA). It has been determined that such clearance or approval is not necessary. Upper Respiratory Mid-turbinate nasal swab / Unknown Non-blood Collection / Unknown 12/21/2022 6:15 AM EDT 12/21/2022 6:45 AM EDT Cristi Clay PA-C LAB Jawbone - GE NERAL ORDERABLES Performing Organization Address City/[facility]/ZIP Co de Phone Number LABORATORY [address] [address] * CULTURE, URINE, QUANTITATIVE (12/21/2022 6:15 AM EDT) Culture Growth No significant growth 12/22/2022 8:47 AM EDT LABORATORY [facility] Urine Urine specimen / Unknown Non-blood Collection / Unknown 12/21/2022 6:15 AM EDT 12/21/2022 6:45 AM EDT Cristi Clay PA-C LAB MICRO - [facility] NERAL ORDERABLES Performing Organization Address City/[facility]/ZIP Co de Phone Number LABORATORY [place] [address] [place] [address] * CORTISOL (12/21/2022 4:33 AM EDT) Pathologist [facility] Cortisol 7.0 2.5 - 19.5 ug/dL 12/21/2022 11:04 AM EDT LABORATORY GM Comment: AM Reference Range: 4.8 - 19.5 ug/dL PM Reference Range: 2.5 - 11.9 ug/dL Blood Venous blood specimen / Unknown Venipuncture / Unknown 12/21/2022 4:33 AM EDT 12/21/2022 4:40 AM EDT Andie Chavis DO LAB BLOOD ORDER DANELLE LABORATORY [facility] [address] [place] [address] * (ABNORMAL) CBC (12/21/2022 4:33 AM EDT) Pathologist [facility] WBC 10.82(H) 4.00 - 10.80 K/uL 12/21/2022 5:14 AM EDT LABORATORY [facility] RBC 3.39 3.85 - 5.15 M/uL 12/21/2022 5:14 AM EDT LABORATORY [facility] HGB 7.2(L) 12.0 - 15.3 g/dL 12/21/2022 5:14 AM EDT LABORATORY C HCT 25.3(L) 36.0 - 45.2 % 12/21/2022 5:14 AM EDT LABORATORY [facility] MCV 74.6 81.5 - 97.5 fL 12/21/2022 5:14 AM EDT LABORATORY [facility] MCH 21.2 27.0 - 34.0 pg 12/21/2022 5:14 AM EDT LABORATORY [facility] MCHC 28.5 32.0 - 36.0 g/dL 12/21/2022 5:14 AM EDT LABORATORY GM RDW 22.1 11.5 - 15.5 % 12/21/2022 5:14 AM EDT LABORATORY [facility] PLT 192 140 - 400 K/uL 12/21/2022 5:14 AM EDT LABORATORY [facility] MPV 10.9 6.6 - 11.1 fL 12/21/2022 5:14 AM EDT LABORATORY [facility] nRBCs 1(H) <=0 /100 WBCs 12/21/2022 5:14 AM EDT LABORATORY [facility] Blood Venous blood specimen / Unknown Venipuncture / Unknown 12/21/2022 4:33 AM EDT 12/21/2022 4:40 AM EDT Cristi Clay PA-C LAB BLOOD ORDRosmery BAN Performing Organization Address [facility] Co de Phone Number LABORATORY [facility] [address] [place] [address] * (ABNORMAL) HEPATIC FUNCTION PANEL (12/21/2022 4:33 AM EDT) [facility] Albumin 3.0(L) 3.8 - 5.0 g/dL 12/21/2022 5:25 AM EDT LABORATORY [facility] AST 13 10 - 35 U/L 12/21/2022 5:25 AM EDT LABORATORY [facility] Alkaline Phosphatase 69 35 - 130 U/L 12/21/2022 5:25 AM EDT LABORATORY [facility] ALT 10 10 - 35 U/L 12/21/2022 5:25 AM EDT LABORATORY [facility] Bilirubin, Total 2.0(H) <=1.2 mg/dL 12/21/2022 5:25 AM EDT LABORATORY [facility] Bilirubin, Direct 0.4(H) 0.0 - 0.3 mg/dL 12/21/2022 5:25 AM EDT LABORATORY [facility] Protein 6.0 6.0 - 8.3 g/dL 12/21/2022 5:25 AM EDT LABORATORY C Blood Venous blood specimen / Unknown Venipuncture / Unknown 12/21/2022 4:33 AM EDT 12/21/2022 4:40 AM EDT Cristi Clay PA-C LAB BLOOD BRYCE CEVALLOS Performing Organization Address [facility] de Phone Number LABORATORY C [address] [place] [address] * (ABNORMAL) CALCIUM, IONIZED, WHOLE BLOOD (12/21/2022 4:33 AM EDT) Pathologist [facility] Calcium, Ionized, Whole Blood 1.07(L) 1.13 - 1.32 mmol/L 12/21/2022 4:43 AM EDT LABORATORY [facility] Blood Venous blood specimen / Unknown Venipuncture / Unknown 12/21/2022 4:33 AM EDT 12/21/2022 4:40 AM EDT Cristi Clay PA-C LAB BLOOD ORDRosmery CEVALLOS LABORATORY [facility] [address] [place] [address] * PHOSPHORUS (12/21/2022 4:33 AM EDT) [facility] Phosphorus 3.4 2.5 - 4.8 mg/dL 12/21/2022 5:25 AM EDT LABORATORY [facility] Blood Venous blood specimen / Unknown Venipuncture / Unknown 12/21/2022 4:33 AM EDT 12/21/2022 4:40 AM EDT Cristi Clay PA-C LAB BLOOD BRYCE CEVALLOS Performing Organization Address City/[facility]/ZIP Co de Phone Number LABORATORY [facility] [address] [place] [address] * MAGNESIUM (12/21/2022 4:33 AM EDT) [facility] Magnesium 1.9 1.5 - 2.6 mg/dL 12/21/2022 5:25 AM EDT LABORATORY [facility] Blood Venous blood specimen / Unknown Venipuncture / Unknown 12/21/2022 4:33 AM EDT 12/21/2022 4:40 AM EDT Cristi Clay PA-C LAB BLOOD ORDE BAN LABORATORY [facility] [address] [place] [address] * LACTATE (12/21/2022 4:33 AM EDT) Lactate 1.1 0.4 - 2.0 mmol/L 12/21/2022 5:22 AM EDT LABORATORY C Blood Venous blood specimen / Unknown Venipuncture / Unknown 12/21/2022 4:33 AM EDT 12/21/2022 4:40 AM EDT Cristi Clay PA-C LAB BLOOD BRYCE CEVALLOS [facility] Organization Address City/State/ZIP Co de Phone Number LABORATORY [facility] [address] [place] [address] * (ABNORMAL) BASIC METABOLIC PANEL (12/21/2022 4:33 AM EDT) BUN 29(H) 6 - 20 mg/dL 12/21/2022 5:25 AM EDT LABORATORY [facility] Creatinine 2.0(H) 0.5 - 1.0 mg/dL 12/21/2022 5:25 AM EDT LABORATORY [facility] Estimated Glomerular Filtration Rate 29(L) >=60 mL/min 12/21/2022 5:25 AM EDT LABORATORY [facility] Comment:eGFR is calculated b ased on the CKD-EPI 2020 equation Sodium 133(L) 135 - 146 mmol/L 12/21/2022 5:25 AM EDT LABORATORY C Potassium 3.5 3.5 - 5.1 mmol/L 12/21/2022 5:25 AM EDT LABORATORY C Chloride 97(L) 98 - 107 mmol/L 12/21/2022 5:25 AM EDT LABORATORY C CO2 21(L) 22 - 32 mmol/L 12/21/2022 5:25 AM EDT LABORATORY C Anion Gap 15 7 - 15 mmol/L 12/21/2022 5:25 AM EDT LABORATORY C Glucose 114 70 - 120 mg/dL 12/21/2022 5:25 AM EDT LABORATORY C Calcium 7.7(L) 8.4 - 10.2 mg/dL 12/21/2022 5:25 AM EDT LABORATORY [facility] Blood Venous blood specimen / Unknown Venipuncture / Unknown 12/21/2022 4:33 AM EDT 12/21/2022 4:40 AM EDT Cristi Clay PA-C LAB BLOOD ORDRosmery CEVALLOS LABORATORY [facility] [address] [place] [address] * (ABNORMAL) CBC (12/21/2022 2:41 AM EDT) [facility] WBC 10.50 4.00 - 10.80 K/uL 12/21/2022 3:13 AM EDT LABORATORY [facility] RBC 3.55 3.85 - 5.15 M/uL 12/21/2022 3:13 AM EDT LABORATORY [facility] HGB 7.6(L) 12.0 - 15.3 g/dL 12/21/2022 3:13 AM EDT LABORATORY [facility] HCT 26.4(L) 36.0 - 45.2 % 12/21/2022 3:13 AM EDT LABORATORY [facility] MCV 74.4 81.5 - 97.5 fL 12/21/2022 3:13 AM EDT LABORATORY [facility] MCH 21.4 27.0 - 34.0 pg 12/21/2022 3:13 AM EDT LABORATORY [facility] MCHC 28.8 32.0 - 36.0 g/dL 12/21/2022 3:13 AM EDT LABORATORY [facility] RDW 21.9 11.5 - 15.5 % 12/21/2022 3:13 AM EDT LABORATORY [facility] PLT 197 140 - 400 K/uL 12/21/2022 3:13 AM EDT LABORATORY [facility] MPV 11.3 6.6 - 11.1 fL 12/21/2022 3:13 AM EDT LABORATORY [facility] nRBCs 0 <=0 /100 WBCs 12/21/2022 3:13 AM EDT LABORATORY [facility] Blood Venous blood specimen / Unknown Venipuncture / Unknown 12/21/2022 2:41 AM EDT 12/21/2022 2:53 AM EDT Cristi Clay PA-C LAB BLOOD ORDRosmery CEVALLOS LABORATORY [facility] [address] [place] [address] * (ABNORMAL) URINALYSIS, REFLEX TO MICROSCOPIC (12/21/2022 2:16 AM EDT) Color, Urine Light Yellow Colorless, Light Yellow, Yellow, Dark Yellow 12/21/2022 2:33 AM EDT LABORATORY C Clarity, Urine Clear Clear 12/21/2022 2:33 AM EDT LABORATORY C Glucose, Urine Negative Negative mg/dL 12/21/2022 2:33 AM EDT LABORATORY C Bilirubin, Urine Negative Negative 12/21/2022 2:33 AM EDT LABORATORY C Ketone, Urine Negative Negative mg/dL 12/21/2022 2:33 AM EDT LABORATORY [facility] Specific [place], Urine 1.040(H) 1.003 - 1.030 12/21/2022 2:33 AM EDT LABORATORY [facility] Blood, Urine Negative Negative 12/21/2022 2:33 AM EDT LABORATORY [facility] pH, Urine 5.5 5.0 - 7.5 Units 12/21/2022 2:33 AM EDT LABORATORY [facility] Protein, Urine Negative Negative mg/dL 12/21/2022 2:33 AM EDT LABORATORY [facility] Urobilinogen, Urine Normal Normal mg/dL 12/21/2022 2:33 AM EDT LABORATORY [facility] Nitrite, Urine Negative Negative 12/21/2022 2:33 AM EDT LABORATORY [facility] Esterase, Urine Negative Negative 2:33 AM EDT LABORATORY C Comment, Urine 12/21/2022 2:33 AM EDT LABORATORY [facility] Comment:Screen negative - Mi croscopic not performed. Urine Urine specimen / Unknown Non-blood Collection / Unknown 12/21/2022 2:16 AM EDT 12/21/2022 2:24 AM EDT Cristi Clay PA-C LAB URINE BRYCE CEVALLOS LABORATORY [facility] [address] [place] [address] * MRSA SCREEN, PCR (12/21/2022 2:16 AM EDT) MRSA PCR Result Negative Negative 5:04 AM EDT LABORATORY [facility] Comment:No Methicillin resis tant Staphylococcus aureus detected by PCR (amplified probe). Upper Respiratory (Nares, Bilateral) Non-blood Collection / Unknown 12/21/2022 2:16 AM EDT 12/21/2022 2:56 AM EDT Cristi Clay PA-C LAB MICRO - GE NERAL ORDERABLES Performing Organization Address [facility] Co de Phone Number LABORATORY [facility] [address] [place] [address] * (ABNORMAL) TEG (THROMBOELASTOGRAPH), HEPARINASE (12/21/2022 1:25 AM EDT) [facility] Reaction Time 3.2 2.5 - 8.3 minutes 12/21/2022 3:22 AM EDT LABORATORY [facility] Kinetics Time 1.0 0.5 - 3.7 minutes 12/21/2022 3:22 AM EDT LABORATORY [facility] Alpha Angle 75.7 46.8 - 78.4 degrees 12/21/2022 3:22 AM EDT LABORATORY [facility] Maximum Amplitude 73.2(H) 50.6 - 72.5 mm 12/21/2022 3:22 AM EDT LABORATORY [facility] Coagulation Index 4.4(H) -3.0 - 3.0 12/21/2022 3:22 AM EDT LABORATORY [facility] Percent Lysis 30 0.4 0.0 - 7.5 % 12/21/2022 3:22 AM EDT LABORATORY [facility] Comment:This is an appended report. These results have been appended to a previously preliminary verified report. Blood Venous blood specimen / Unknown Venipuncture / Unknown 12/21/2022 1:25 AM EDT 12/21/2022 1:34 AM EDT Cristi Clay PA-C LAB BLOOD ORDE RABLES Performing Organization Address [facility]/ZIP Co de Phone Number LABORATORY [facility] [address] [place] [address] * (ABNORMAL) TEG (THROMBOELASTOGRAPH) (12/21/2022 1:25 AM EDT) Reaction Time 3.0 2.5 - 8.3 minutes 12/21/2022 3:22 AM EDT LABORATORY [facility] Kinetics Time 1.0 0.5 - 3.7 minutes 12/21/2022 3:22 AM EDT LABORATORY [facility] Alpha Angle 74.3 46.8 - 78.4 degrees 12/21/2022 3:22 AM EDT LABORATORY [facility] Maximum Amplitude 71.8 50.6 - 72.5 mm 12/21/2022 3:22 AM EDT LABORATORY [facility] Coagulation Index 4.3(H) -3.0 - 3.0 12/21/2022 3:22 AM EDT LABORATORY [facility] Percent Lysis 30 0.0 0.0 - 7.5 % 023 3:22 AM EDT LABORATORY [facility] Comment:This is an appended report. These results have been appended to a previously preliminary verified report. Blood Venous blood specimen / Unknown Venipuncture / Unknown 12/21/2022 1:25 AM EDT 12/21/2022 1:34 AM EDT Narrative LABORATORY [facility] - 12/21/2022 3:22 AM EDT If R time > 20 minutes and no clot formed suggesting hypocoagulable state or interfering substance (anticoagulation). Consider resubmitting a new sample and/or checking PT/INR, aPTT, fibrinogen, and platelet count. Cristi Clay PA-C LAB BLOOD BRYCE CEVALLOS [facility] Organization Address City/State/[facility] Co de Phone Number LABORATORY [facility] [address] [place] [address] * (ABNORMAL) CALCIUM, IONIZED, WHOLE BLOOD (12/21/2022 1:25 AM EDT) Calcium, Ionized, Whole Blood 1.08(L) 1.13 - 1.32 mmol/L 12/21/2022 1:37 AM EDT LABORATORY [facility] Blood Venous blood specimen / Unknown Venipuncture / Unknown 12/21/2022 1:25 AM EDT 12/21/2022 1:31 AM EDT Cristi Clay PA-C LAB BLOOD ORDRosmery REDNO Performing Organization Address [facility]/ZIP Co de Phone Number LABORATORY [facility] [address] [place] [address] * PHOSPHORUS (12/21/2022 1:25 AM EDT) Phosphorus 3.1 2.5 - 4.8 mg/dL 12/21/2022 2:06 AM EDT LABORATORY [facility] Blood Venous blood specimen / Unknown Venipuncture / Unknown 12/21/2022 1:25 AM EDT 12/21/2022 1:31 AM EDT Cristi Clay PA-C LAB BLOOD ORDRosmery REDNO Performing Organization Address [facility] Co de Phone Number LABORATORY [facility] [address] [place] [address] * MAGNESIUM (12/21/2022 1:25 AM EDT) Magnesium 1.6 1.5 - 2.6 mg/dL 12/21/2022 2:06 AM EDT LABORATORY [facility] Blood Venous blood specimen / Unknown Venipuncture / Unknown 12/21/2022 1:25 AM EDT 12/21/2022 1:31 AM EDT Cristi Clay PA-C LAB BLOOD ORDRosmery BAN Performing Organization Address [facility]/ZIP Co de Phone Number LABORATORY [facility] [address] [place] [address] * LACTATE (12/21/2022 1:25 AM EDT) Lactate 1.6 0.4 - 2.0 mmol/L 12/21/2022 2:03 AM EDT LABORATORY [facility] Blood Venous blood specimen / Unknown Venipuncture / Unknown 12/21/2022 1:25 AM EDT 12/21/2022 1:31 AM EDT Cristi Clay PA-C LAB BLOOD ORDRosmery CEVALLOS Performing Organization Address City/[facility]/ZIP Co de Phone Number LABORATORY [facility] [address] [place] [address] * (ABNORMAL) BASIC METABOLIC PANEL (12/21/2022 1:25 AM EDT) BUN 31(H) 6 - 20 mg/dL 12/21/2022 2:06 AM EDT LABORATORY C Creatinine 2.1(H) 0.5 - 1.0 mg/dL 12/21/2022 2:06 AM EDT LABORATORY [facility] Estimated Glomerular Filtration Rate 28(L) >=60 mL/min 12/21/2022 2:06 AM EDT LABORATORY C Comment:eGFR is calculated b ased on the CKD-EPI 2020 equation Sodium 132(L) 135 - 146 mmol/L 12/21/2022 2:06 AM EDT LABORATORY [facility] Potassium 3.0(L) 3.5 - 5.1 mmol/L 12/21/2022 2:06 AM EDT LABORATORY C Chloride 97(L) 98 - 107 mmol/L 12/21/2022 2:06 AM EDT LABORATORY [facility] CO2 22 22 - 32 mmol/L 12/21/2022 2:06 AM EDT LABORATORY C Anion Gap 13 7 - 15 mmol/L 12/21/2022 2:06 AM EDT LABORATORY C Glucose 118 70 - 120 mg/dL 12/21/2022 2:06 AM EDT LABORATORY C Calcium 7.9(L) 8.4 - 10.2 mg/dL 12/21/2022 2:06 AM EDT LABORATORY [facility] Blood Venous blood specimen / Unknown Venipuncture / Unknown 12/21/2022 1:25 AM EDT 12/21/2022 1:31 AM EDT Cristi Clay PA-C LAB BLOOD ANIYARosmery CEVALLOS LABORATORY [facility] [address] [place] [address] * LIPASE (12/21/2022 1:25 AM EDT) Pathologist [facility] Lipase 37 13 - 60 U/L 12/21/2022 2:06 AM EDT LABORATORY [facility] Blood Venous blood specimen / Unknown Venipuncture / Unknown 12/21/2022 1:25 AM EDT 12/21/2022 1:31 AM EDT Cristi Clay PA-C LAB BLOOD ORDRosmery BAN Performing Organization Address [facility] Co de Phone Number LABORATORY [address] [phone] * (ABNORMAL) BNP, NT-PRO (12/21/2022 1:25 AM EDT) BNP, NT-Pro 2,671(H) <300 pg/mL 12/21/2022 2:06 AM EDT LABORATORY [facility] Blood Venous blood specimen / Unknown Venipuncture / Unknown 12/21/2022 1:25 AM EDT 12/21/2022 1:31 AM EDT Narrative LABORATORY [facility] - 12/21/2022 2:06 AM EDT Exclude Heart Failure: <300 pg/mL Diagnose Heart Failure: Age <50 yr: >450 pg/mL 50-75 yr: >900 pg/mL >75 yr: >1800 pg/mL GFR is 30-59 mL/min: >1200 pg/mL or Age-adjusted values GFR <30 mL/min: do not use, not reliable Prognostic threshold: 1000 pg/mL Cristi Clay PA-C LAB BLOOD BRYCE CEVALLOS Performing Organization Address City/[facility] Co de Phone Number LABORATORY [address] [phone] * (ABNORMAL) TROPONIN T, HIGH SENSITIVITY (12/21/2022 1:25 AM EDT) Pathologist [facility] Troponin T, High Sensitivity 16(H) <=14 ng/L 12/21/2022 2:06 AM EDT LABORATORY [facility] Blood Venous blood specimen / Unknown Venipuncture / Unknown 12/21/2022 1:25 AM EDT 12/21/2022 1:31 AM EDT Cristi Clay PA-C LAB BLOOD ORDRosmery REDNO Performing Organization Address City/[facility]/ZIP Co de Phone Number LABORATORY [facility] [address] [place] [address] * CK-MB (12/21/2022 1:25 AM EDT) CK-MB 1.6 0.0 - 4.3 ng/mL 12/21/2022 2:06 AM EDT LABORATORY [facility] Blood Venous blood specimen / Unknown Venipuncture / Unknown 12/21/2022 1:25 AM EDT 12/21/2022 1:31 AM EDT Cristi Clay PA-C LAB BLOOD ORDRosmery BAN Performing Organization Address [facility]/ZIP Co de Phone Number LABORATORY [facility] [address] [place] [address] * CK (12/21/2022 1:25 AM EDT) CK 43 26 - 192 U/L 12/21/2022 2:06 AM EDT LABORATORY [facility] Blood Venous blood specimen / Unknown Venipuncture / Unknown 12/21/2022 1:25 AM EDT 12/21/2022 1:31 AM EDT Cristi Clay PA-C LAB BLOOD ORDRosmery BAN Performing Organization Address [facility]/ZIP Co de Phone Number LABORATORY [facility] [address] [place] [address] * (ABNORMAL) PT INR (12/21/2022 1:25 AM EDT) Prothrombin Time 15.8(H) 11.6 - 15.2 seconds 12/21/2022 1:57 AM EDT LABORATORY [facility] INR 1.2 0.8 - 1.2 12/21/2022 1:57 AM EDT LABORATORY [facility] Blood Venous blood specimen / Unknown Venipuncture / Unknown 12/21/2022 1:25 AM EDT 12/21/2022 1:31 AM EDT Narrative LABORATORY [facility] - 12/21/2022 1:57 AM EDT Warfarin Therapy INR: 2.0-3.0 conventional anticoagulation INR: 2.5-3.5 high intensity anticoagulation Cristi Clay PA-C LAB BLOOD BRYCE CEVALLOS [facility] Organization Address City/State/ZIP Co de Phone Number LABORATORY [facility] [address] [place] [address] documented in this encounter Visit Diagnoses Diagnosis Shock (HCC)- Primary Shock, unspecified Shock (HCC) Shock, unspecified Chest pain Chest pain, unspecified Bradycardia Other specified cardiac dysrhythmias Diaphragmatic hernia without obstruction or gangrene [K44.9 (ICD-10-CM)] Diaphragmatic hernia without mention of obstruction or gangrene Acute posthemorrhagic anemia [D62 (ICD-10-CM)] Acute posthemorrhagic anemia Abnormal findings on diagnostic imaging of other parts of digestive tract [R93.3 (ICD-10-CM)] Disease of esophagus, unspecified [K22.9 (ICD-10-CM)] Gastro-esophageal reflux disease with esophagitis, without bleeding [K21.00 (ICD-10-CM)] Esophageal varices without bleeding (HCC) [I85.00 (ICD-10-CM)] Esophageal varices without mention of bleeding Angiodysplasia of colon without hemorrhage Angiodysplasia of intestine (without mention of hemorrhage) Polyp of colon Benign neoplasm of colon Presence of other specified devices Other specified diseases of intestine Varicose veins of other specified sites Residual hemorrhoidal skin tags Other hemorrhoids Iron deficiency anemia, unspecified [D50.9 (ICD-10-CM)] Iron deficiency anemia, unspecified Pulmonary hypertension (HCC) Other chronic pulmonary heart diseases Gastrointestinal hemorrhage Hemorrhage of gastrointestinal tract, unspecified Acute on chronic respiratory failure with hypoxia (HCC) Pleural effusion Unspecified pleural effusion Acute pulmonary edema (HCC) Acute edema of lung, unspecified Acute on chronic anemia Pain of upper abdomen Abdominal pain, other specified site Iron deficiency anemia due to chronic blood loss Iron deficiency anemia secondary to blood loss (chronic) documented in this encounter Administered Medications Inactive Administered Medications - up to 3 most recent administrations Medication Order MAR Action Action Date Dose Rate Site Acetaminophen (Tylenol) tab 650 mg 650 mg, Oral, ONCE, On Mon12/27/22 at 1945, For 1 dose, Maximum of 4 grams (4000 mg) per day. Given 12/27/2022 7:31 PM EDT 650 mg Acetaminophen (Tylenol) tab 650 mg 650 mg, Oral, Q6H PRN Headache, Starting on Mon12/28/22 at 1144, Until Mon12/30/22 at 2013, Maximum of 4 grams (4000 mg) per day. Given 12/29/2022 3:06 PM EDT 650 mg Given 12/29/2022 8:22 AM EDT 650 mg Given 12/28/2022 9:41 PM EDT 650 mg Albuterol Sulfate (Proventil) (2.5 MG/3ML) 0.083% inhalation solution 2.5 mg 2.5 mg, Nebulizer, Q4H PRN Other, wheezing, Starting on Mon12/21/22 at 0159, Until Mon12/30/22 at 2013 ambrisentan (Letairis) tab 10 mg 10 mg, Oral, Daily(AM), First dose on Mon12/27/22 at 0900, Until Discontinued, DO NOT SPLIT, CRUSH, OR CHEW TABLETS Given 12/30/2022 8:01 AM EDT 10 mg Given 12/29/2022 8:16 AM EDT 10 mg Given 12/28/2022 8:56 AM EDT 10 mg Bisacodyl (Dulcolax) tab 20 mg 20 mg, Oral, ONCE, On Mon12/21/22 at 1800, For 1 dose, For Bowel Prep, Pre-Op Given 12/21/2022 8:58 PM EDT 20 mg Bisacodyl (Dulcolax) tab 20 mg 20 mg, Oral, ONCE, On Mon12/22/22 at 1500, For 1 dose, For Bowel Prep, Pre-Op Given 12/22/2022 4:06 PM EDT 20 mg Bumetanide (Bumex) inj 2 mg 2 mg, IV Push, ONCE, On Mon12/21/22 at 1045, For 1 dose, May administer as dispensed over 1 to 5 minutes DO NOT REFRIGERATE Given 12/21/2022 11:33 AM EDT 2 mg Bumetanide (Bumex) inj 2 mg 2 mg, IV Push, ONCE, On Mon12/21/22 at 1630, For 1 dose, May administer as dispensed over 1 to 5 minutes DO NOT REFRIGERATE Given 12/21/2022 5:31 PM EDT 2 mg Bumetanide (Bumex) inj 2 mg 2 mg, IV Push, ONCE, On Mon12/22/22 at 1115, For 1 dose, May administer as dispensed over 1 to 5 minutes DO NOT REFRIGERATE Given 12/22/2022 11:47 AM EDT 2 mg calcium GLUConate 1000 mg in 50ml ivpb 1,000 mg, IV Piggyback, ONCE, 1 dose, On Mon12/21/22 at 0315 New Bag 12/21/2022 4:58 AM EDT 1,000 mg 10 0 mL/hr calcium GLUConate 1000 mg in 50ml ivpb 1,000 mg, IV Piggyback, ONCE, 1 dose, On Mon12/25/22 at 1115 New Bag 12/25/2022 11:40 AM EDT 1,000 mg 1 00 mL/hr carboxymethylcell-glycerin PF (Refresh Optive) ophthalmic solution 1 Drop 1 Drop, Both eyes, DAILY PRN Other, Dry or burning eyes, Starting on Mon12/26/22 at 1208, Until Mon12/30/22 at 2013 Given 12/28/2022 4:38 PM EDT 1 Drop Given 12/27/2022 8:07 AM EDT 1 Drop cefTRIAXone in dextrose (Rocephin) IVPB 1 g IV Piggyback, 1 g, Q24H, First dose on Mon12/21/22 at 0215, Until Discontinued, Administer over 30 Minutes New Bag 12/21/2022 1:52 AM EDT 1 g 100 mL/hr cefTRIAXone in dextrose (Rocephin) IVPB 1 g IV Piggyback, 1 g, Q24H, 6 doses, First dose (after last modification) on Mon12/22/22 at 0215, Last dose on Mon12/27/22 at 0215, Administer over 30 Minutes New Bag 12/25/2022 2:46 AM EDT 1 g 100 mL/hr New Bag 12/24/2022 2:33 AM EDT 1 g 100 mL/hr New Bag 12/23/2022 2:28 AM EDT 1 g 100 mL/hr chlorHEXIDINE (Periogard) 0.12 % oral rinse 15 mL 15 mL, Oral mucosal membrane, BID (799,1999), First dose on Mon12/21/22 at 0800, Until Discontinued, Include oral/gum/tooth brushing with medication. Use prepackaged oral kit suction tooth brush if available. Given 12/26/2022 9:03 AM EDT 15 mL Given 12/25/2022 9:13 PM EDT 15 mL Given 12/25/2022 9:46 AM EDT 15 mL diphenhydrAMINE (Benadryl) inj 50 mg 50 mg, IV Push, ONCE, On Mon12/21/22 at 1545, For 1 dose Given 12/21/2022 3:00 PM EDT 50 mg fentaNYL (PF) inj 100 mcg 100 mcg, IV Push, ONCE, On Mon12/21/22 at 1530, For 1 dose, When given IV Push its recommended that the dose be given over 3 to 5 minutes. Given 12/21/2022 3:00 PM EDT 100 mcg Ferrous Sulfate (Feosol) tab 325 mg 325 mg, Oral, BID (NOON, 1700), First dose on Mon12/27/22 at 1200, Until Discontinued, This med should NOT be Crushed or Chewed Given 12/30/2022 11:50 AM EDT 32 5 mg Given 12/29/2022 3:06 PM EDT 325 mg Given 12/29/2022 10:51 AM EDT 325 mg Fluconazole (Diflucan) tab 200 mg 200 mg, Oral, Daily(AM), First dose on Mon12/22/22 at 0900, Last dose on Mon01/04/23 at 0900, For 14 days Given 12/30/2022 8:01 AM EDT 200 mg Given 12/29/2022 8:16 AM EDT 200 mg Given 12/28/2022 8:57 AM EDT 200 mg Fluconazole (Diflucan) tab 400 mg 400 mg, Oral, ONCE, On Mon12/21/22 at 2045, For 1 dose Given 12/21/2022 9:25 PM EDT 400 mg fluticasone (Flonase) nasal inhaler 2 Chloride 2 Chloride, Each Nostril, Daily(AM), First dose on Mon12/25/22 at 0900, Until Discontinued, 50 mcg / Actuation Given 12/30/2022 8:03 AM EDT 2 Sprays Given 12/29/2022 8:15 AM EDT 2 Sprays Given 12/28/2022 10:35 AM EDT 2 Sprays fluticasone furoate-vilanterol (BREO ellipta) 200-25 MCG/ACT inhaler 1 Puff 1 Puff, Inhalation, RESPDAILY, First dose on Mon12/21/22 at 0800, Until Discontinued, NURSING TO FOLLOW PATIENT WITH MDI/DPI ADMINISTRATION Given 12/30/2022 8:03 AM EDT 1 Puff Given 12/29/2022 8:22 AM EDT 1 Puff Given 12/28/2022 8:57 AM EDT 1 Puff Furosemide (Lasix) inj 60 mg 60 mg, IV Push, Daily(AM), First dose (after last modification) on [facility] 12/28/22 at 1515, Until Discontinued Given 12/30/2022 8:13 AM EDT 60 mg Given 12/29/2022 8:16 AM EDT 60 mg Given 12/28/2022 2:45 PM EDT 60 mg Gabapentin (Neurontin) cap 600 mg 600 mg, Oral, HS, First dose on Mon12/22/22 at 2200, Until Discontinued Given 12/29/2022 9:28 PM EDT 600 mg Given 12/28/2022 9:31 PM EDT 600 mg Given 12/27/2022 8:30 PM EDT 600 mg hEParin inj 5,000 Units 5,000 Units, Subcutaneous, Q8H, First dose on Mon12/22/22 at 1400, Until Discontinued Given 12/23/2022 8:32 PM EDT 5,000 Units Abdomen Right Lower Given 12/23/2022 3:40 PM EDT 5,000 Units A bdomen Left Lower Given 12/23/2022 6:34 AM EDT 5,000 Units A bdomen Left Lower hEParin inj 5,000 Units 5,000 Units, Subcutaneous, Q8H, First dose on Mon12/25/22 at 1515, Until Discontinued Given 12/30/2022 1:47 PM EDT 5,000 Units Abdomen Right Lower Given 12/30/2022 5:36 AM EDT 5,000 Units A bdomen Left Upper Given 12/29/2022 9:28 PM EDT 5,000 Units A bdomen Right Upper Iron Sucrose (Venofer) 300 mg in NSS 250 mL ivpb 300 mg, IV Piggyback, Daily(AM), 3 doses, First dose on Mon12/24/22 at 1230, Last dose on Mon12/26/22 at 0900, Administer over 90 Minutes New Bag 12/26/2022 10:15 AM EDT 300 mg 183 .33 mL/hr New Bag 12/25/2022 9:50 AM EDT 300 mg 183.33 mL/hr New Bag 12/24/2022 1:52 PM EDT 300 mg 183.33 mL/hr isolyte 250 mL bolus infusion Intravenous, Administer entire volume within 60 minutes or less. Plasma-LYTE 148, isolyte-S, and isolyte-S pH 7.4 are considered equivalent - including for MAR barcode scanning., ONCE, 1 dose, On 12/25/22 at 1130 New Bag 12/25/2022 11:39 AM EDT 250 mL 999 mL/ hr isolyte-S pH 7.4 infusion Intravenous, at 25 mL/hr, Plasma-LYTE 148, isolyte-S, and isolyte-S pH 7.4 are considered equivalent - including for MAR barcode scanning., CONTINUOUS, Starting on Mon12/23/22 at 1115, Until Mon12/23/22 at 1414, Pre-Op New 12/23/2022 10:46 AM EDT 25 mL/hr Lactulose (Constulose) oral soln 30 g 30 g, Oral, TID(AM/NOON/HS), First dose on Carla 12/22/22 at 0415, Until Discontinued, Titrate to 3-4 loose BMs daily Given 12/23/2022 6:34 AM EDT 30 g Given 12/22/2022 9:31 PM EDT 30 g Given 12/22/2022 11:51 AM EDT 30 g Lactulose (Constulose) oral soln 30 g 30 g, Oral, TID(AM/NOON/HS), First dose (after last modification) on 12/24/22 at 0600, Until Discontinued, Titrate to 3-4 loose BMs daily Given 12/30/2022 5:36 AM EDT 30 g Given 12/29/2022 9:28 PM EDT 30 g Given 12/27/2022 6:02 AM EDT 30 g levothyroxine (Levoxyl) tab 150 mcg 150 mcg, Oral, [id number], First dose on Mon12/22/22 at 0630, Until Discontinued Given 12/30/2022 5:36 AM EDT 150 mcg Given 12/29/2022 5:47 AM EDT 150 mcg Given 12/28/2022 5:33 AM EDT 150 mcg Lidocaine (Aspercreme) 4 % patch 1 Patch 1 Patch, Transdermal, Daily(AM), First dose on Mon12/21/22 at 1245, Until Discontinued, Apply patch for 12 hours then remove for 12 hours! Remove any Lidocaine patches the patient may currently be wearing prior to applying the new patch Patch Applied 12/23/2022 2:01 PM EDT 1 Patch Back Middle Patch Applied 12/22/2022 8:25 AM EDT 1 Patch Back Middle Patch Applied 12/21/2022 8:42 PM EDT 1 Patch Back Middle loperamide (Imodium) cap 2 mg 2 mg, Oral, Q4H PRN Diarrhea, Starting on Mon12/26/22 at 1324, Until Mon12/30/22 at 2013, Maximum of 16 mg per day recommended magnesium chloride ER (Mag-64) tab 128 mg 128 mg, Oral, Daily(AM), First dose on Mon12/28/22 at 0900, Until Discontinued, Each tablet contains 64 mg elemental Magnesium Due to various manufacturers, tablets labeled 70mg are considered to be equivalent Given 12/30/2022 8:01 AM EDT 128 mg Given 12/29/2022 8:16 AM EDT 128 mg Given 12/28/2022 8:56 AM EDT 128 mg magnesium sulfate in SWFI iv piggyback 4,000 mg 4,000 mg, IV Piggyback, ONCE, 1 dose, On Mon12/21/22 at 0300, Administer over 4 Hours New Bag 12/21/2022 2:52 AM EDT 4,000 mg 25 mL/h r magnesium sulfate in SWFI iv piggyback 4,000 mg 4,000 mg, IV Piggyback, ONCE, 1 dose, On Mon12/25/22 at 1115, Administer over 4 Hours New Bag 12/25/2022 11:40 AM EDT 4,000 mg 25 mL/ hr midazolam (Versed) 2 MG/2ML inj 4 mg 4 mg, IV Push, ONCE, On Mon12/21/22 at 1530, For 1 dose Given 12/21/2022 3:00 PM EDT 4 mg mycophenolate (Cellcept) tab 500 mg 500 mg, Oral, BID (.AM/PM), First dose on Mon12/22/22 at 2100, Until Discontinued Given 12/30/2022 8:01 AM EDT 500 mg Given 12/29/2022 9:28 PM EDT 500 mg Given 12/29/2022 8:16 AM EDT 500 mg NORepinephrine (Levophed) 4 mg in 250 ml D5W STANDARD CONCENTRATION 16 mcg/ml Peripheral IV, 0-30 mcg/min (0-112.5 mL/hr), TITRATE, Starting on Mon12/21/22 at 0145, Until Mon12/21/22 at 1005 Rate Change 12/21/2022 5:00 AM EDT 8 mcg/min 30 mL/hr New Bag 12/21/2022 1:00 AM EDT 6 mcg/min 22.5 mL/hr NORepinephrine (Levophed) 4 mg in 250 ml D5W STANDARD CONCENTRATION 16 mcg/ml Peripheral IV, 0-30 mcg/min (0-112.5 mL/hr), TITRATE, Starting on Mon12/21/22 at 1045, Until Mon12/21/22 at 1952 Rate Change 12/21/2022 5:45 PM EDT 6 mcg/min 22.5 mL/hr Rate Change 12/21/2022 4:00 PM EDT 8 mcg/min 30 mL/hr Rate Change 12/21/2022 1:30 PM EDT 6 mcg/min 22.5 mL/hr NORepinephrine (Levophed) 4 mg in 250 ml D5W STANDARD CONCENTRATION 16 mcg/ml Peripheral IV, 0-30 mcg/min (0-112.5 mL/hr), TITRATE, Starting on Mon12/21/22 at 2030, Until Mon12/22/22 at 2105 Rate Change 12/22/2022 3:00 PM EDT 1 mcg/min 3.75 mL/hr Rate Change 12/22/2022 11:30 AM EDT 2 mcg/min 7.5 mL/hr Rate Change 12/22/2022 5:00 AM EDT 1 mcg/min 3.75 mL/hr Octreotide Acetate (SandoSTATIN) 500 mcg in NSS 500 mL INFUSION Intravenous, 50 mcg/hr (50 mL/hr), Please select this medication from the infusion pump library, CONTINUOUS, Starting on Mon12/21/22 at 0145, Until Mon12/21/22 at 1952 New Bag 12/21/2022 2:06 PM EDT 50 mcg/hr 50 mL/hr New Bag 12/21/2022 2:43 AM EDT 50 mcg/hr 50 mL/hr omeprazole (PriLOSEC) cap 20 mg 20 mg, Oral, Daily(AM), First dose on Mon12/22/22 at 0900, Until Discontinued, This med should NOT be Crushed or Chewed Given 12/30/2022 8:01 AM EDT 20 mg Given 12/29/2022 8:16 AM EDT 20 mg Given 12/28/2022 8:56 AM EDT 20 mg ondansetron (Zofran) inj 4 mg 4 mg, IV Push, Q6H PRN Nausea, Vomiting, Starting on Mon12/21/22 at 2020, Until Mon12/30/22 at 2013 Given 12/29/2022 5:18 PM EDT 4 mg Given 12/22/2022 11:48 AM EDT 4 mg Given 12/21/2022 8:42 PM EDT 4 mg Oral Hygiene: Mouth Swab with dentifrice Oral, Q4H LIMITED (00;04;12;16), First dose on Mon12/21/22 at 0400, Until Discontinued, To be used with 1.5% hydrogen peroxide solution or 0.05% cetylpyridium chloride oral rinse Given 12/23/2022 3:42 PM EDT 1 Ki t Given 12/23/2022 4:38 AM EDT 1 Kit Given 12/22/2022 11:38 PM EDT 1 Kit oxygen GAS Inhalation, OXYGEN, First dose on Mon12/21/22 at 0145, Until Discontinued, Device/Managed by: Low Flow Device, Goal SPO2 (%): 91-95, Starting Device: Nasal Cannula, Inital Flow Rate (LPM): 2, Lowest Support: Nasal Cannula: Flow 0-6 LPM. Titrate up/down by 1 LPM., Titration Interval: Q2 minutes and as needed., Notify Provider: For sudden DECREASE in resting SPO2 to less than 85% and when escalating delivery device. Oxygen On 12/29/2022 8:00 AM EDT Oxygen On 12/29/2022 12:00 AM EDT 4 L/min(Oxygen) Oxygen On 12/28/2022 4:00 PM EDT oxygen GAS Inhalation, OXYGEN, First dose (after last modification) on Carla 12/29/22 at 1600, Until Discontinued, Device/Managed by: Low Flow Device, Goal SPO2 (%): 91-95, Starting Device: Nasal Cannula, Inital Flow Rate (LPM): 2, Lowest Support: Nasal Cannula: Flow 0-6 LPM. Titrate up/down by 1 LPM., Titration Interval: Q2 minutes and as needed., Notify Provider: For sudden DECREASE in resting SPO2 to less than 85% and when escalating delivery device., Goal >90. Titrate as needed Oxygen On 12/30/2022 4:00 PM EDT Oxygen On 12/30/2022 8:00 AM EDT Oxygen On 12/30/2022 12:00 AM EDT Pantoprazole (Protonix) 80 mg in NSS 100 mL ivpb 80 mg, IV Piggyback, ONCE, 1 dose, On Mon12/21/22 at 0145, Administer over 15 Minutes New Bag 12/21/2022 2:31 AM EDT 80 mg 400 mL/hr Pantoprazole (Protonix) inj 40 mg 40 mg, IV Push, Daily(AM), First dose on Mon12/21/22 at 0315, Until Discontinued, IV push instructions: Flush I.V. Line before and after administration. In-line filter not required. 2-minute infusion: The volume of reconstituted solution (4mg/ml) to be injected may be administered intravenously over at least 2 minutes. ( Dilute each vial with 10 ml of 0.9% saline PF) Given 12/21/2022 2:56 AM EDT 40 mg phentolamine (Regitine) 10 mg in sodium chloride 0.9 % 10 mL inj 10 mg, Subcutaneous, ONCE, 1 dose, On Carla 12/22/22 at 1445, FOR EXTRAVASATION / CONTACT PHARMACY FOR INSTRUCTION IF DILUTING ON NURSING UNIT Given 12/22/2022 3:06 PM EDT 10 mg Antecubital Right Polyethylene Glycol 3350 (Miralax) oral powder 238 g 238 g, Oral, ONCE, On Mon12/21/22 at 1800, For 1 dose, Mix entire [...] directly or use a straw., Pre-Op Given 12/21/2022 8:59 PM EDT 238 g Polyethylene Glycol 3350 (Miralax) oral powder 238 g 238 g, Oral, ONCE, On Mon12/22/22 at 1800, For 1 dose, Mix entire [...] directly or use a straw., Pre-Op Given 12/22/2022 6:27 PM EDT 238 g potassium and sodium phosphate (Phos-Nak) oral powder 1 Packet 1 Packet, Oral, BID (.AM/PM), First dose on Mon12/23/22 at 0930, Last dose on Mon12/25/22 at 2100, For 3 days, Mix 1 packet in 2.5 ounces (75 mL) of water, stir well and administer promptly. 1 packet contains Phosphorus 250 mg (~8 mMoles) + potassium 280 mg (~7.125 mEq) + sodium 160mg (~7.125 mEq) Given 12/25/2022 9:13 PM EDT 1 Packet Given 12/25/2022 9:45 AM EDT 1 Packet Given 12/24/2022 10:24 PM EDT 1 Packet potassium and sodium phosphate (Phos-Nak) oral powder 1 Packet 1 Packet, Oral, ONCE, On Mon12/27/22 at 1315, For 1 dose, Mix 1 packet in 2.5 ounces (75 mL) of water, stir well and administer promptly. 1 packet contains Phosphorus 250 mg (~8 mMoles) + potassium 280 mg (~7.125 mEq) + sodium 160mg (~7.125 mEq) Given 12/27/2022 2:05 PM EDT 1 Packet potassium and sodium phosphate (Phos-Nak) oral powder 1 Packet 1 Packet, Oral, Daily(AM), First dose on Carla 12/29/22 at 0900, Last dose on Mon12/31/22 at 0900, For 3 doses, Mix 1 packet in 2.5 ounces (75 mL) of water, stir well and administer promptly. 1 packet contains Phosphorus 250 mg (~8 mMoles) + potassium 280 mg (~7.125 mEq) + sodium 160mg (~7.125 mEq) Given 12/30/2022 8:01 AM EDT 1 Packet Given 12/29/2022 10:51 AM EDT 1 Packet potassium chloride 10 mEq in 100 mL ivpb LOCKED DOSE 10 mEq, Peripheral IV, Q1H, 5 doses, First dose on Mon12/21/22 at 0300, Last dose on Mon12/21/22 at 0700, Administer over 60 Minutes, Standard infusion duration is 60 minutes. New Bag 12/21/2022 8:04 AM EDT 10 mEq 100 mL/hr New Bag 12/21/2022 6:48 AM EDT 10 mEq 100 mL/hr New Bag 12/21/2022 5:35 AM EDT 10 mEq 100 mL/hr potassium chloride 10 mEq in 100 mL ivpb LOCKED DOSE 10 mEq, Peripheral IV, Q1H, 3 doses, First dose on Mon12/22/22 at 1200, Last dose on Mon12/22/22 at 1400, Administer over 60 Minutes, Standard infusion duration is 60 minutes. New Bag 12/22/2022 11:49 AM EDT 10 mEq 100 mL /hr potassium chloride ER tab 30 mEq 30 mEq, Oral, Q2H, First dose on Mon12/25/22 at 1015, Last dose on Mon12/25/22 at 1200, For 2 doses, This med should NOT be Crushed or Chewed Given 12/25/2022 11:52 AM EDT 30 mEq Given 12/25/2022 9:49 AM EDT 30 mEq potassium chloride ER tab 40 mEq 40 mEq, Oral, ONCE, On Mon12/22/22 at 1430, For 1 dose, This med should NOT be Crushed or Chewed Given 12/22/2022 2:20 PM EDT 40 mEq potassium chloride ER tab 40 mEq 40 mEq, Oral, Q4H, First dose on Mon12/23/22 at 1200, Last dose on Mon12/23/22 at 1600, For 2 doses, This med should NOT be Crushed or Chewed Given 12/23/2022 3:40 PM EDT 40 mEq potassium chloride ER tab 40 mEq 40 mEq, Oral, ONCE, On Mon12/24/22 at 1415, For 1 dose, This med should NOT be Crushed or Chewed Given 12/24/2022 1:51 PM EDT 40 mEq potassium chloride ER tab 40 mEq 40 mEq, Oral, Q2H, First dose on Mon12/26/22 at 1000, Last dose on Mon12/26/22 at 1200, For 2 doses, This med should NOT be Crushed or Chewed Given 12/26/2022 12:57 PM EDT 40 mEq Given 12/26/2022 10:35 AM EDT 40 mEq prochlorperazine (Compazine) inj 10 mg 10 mg, IV Push, Q6H PRN Nausea, Vomiting, refractory to zofran, Starting on Mon12/21/22 at 2221, Until Mon12/23/22 at 0756 Given 12/21/2022 10:39 PM EDT 10 mg Propofol (Diprivan) 10 mg/mL (1%) bolus IV Push, May ONLY be administered by a CREDENTIALED provider. See nursing policy 11.11.01, ONCE, 1 dose, On Mon12/21/22 at 1530 Given 12/21/2022 3:00 PM EDT 50 mg sodium chloride 0.9 % flush peripheral tahira 3 mL 3 mL, IV Push, Q8H, First dose on Mon12/21/22 at 0600, Until Discontinued, Do not flush if lock, PICC, or central line not in place; IV infusing or unable to flush. Given 12/30/2022 2:00 PM EDT 3 mL Given 12/30/2022 5:36 AM EDT 3 mL Given 12/29/2022 9:28 PM EDT 3 mL Tadalafil tab 20 mg (Patient Supplied Medication) 40 mg, Oral, Daily(AM), First dose on Mon12/25/22 at 0900, Until Discontinued Given 12/30/2022 8:01 AM EDT 40 mg Given 12/29/2022 8:15 AM EDT 40 mg Given 12/28/2022 8:57 AM EDT 40 mg tap water enema 1 Enema 1 Enema, Rectal, PRN Constipation, Other, Pre-Procedure, Starting on Mon12/22/22 at 0600, Until Mon12/30/22 at 2012, For 1 dose, 250 mL tap water enema - Pre Procedure PRN tap water enema 1 Enema 1 Enema, Rectal, ONCE, On Mon12/23/22 at 0730, For 1 dose Given 12/23/2022 7:30 AM EDT 1 Enema Torsemide (Demadex) tab 40 mg 40 mg, Oral, Daily(AM), First dose on Mon12/24/22 at 0900, Until Discontinued Given 12/25/2022 9:45 AM EDT 40 mg Given 12/24/2022 8:56 AM EDT 40 mg traMADol (Ultram) tab 50 mg 50 mg, Oral, Q6H PRN Pain, Severe, Starting on Mon12/21/22 at 1208, Until Mon12/30/22 at 2012 Given 12/30/2022 8: 13 AM EDT 50 mg Given 12/29/2022 3:06 PM EDT 50 mg Given 12/29/2022 5:47 AM EDT 50 mg traZODone (Desyrel) tab 50 mg 50 mg, Oral, QHS, First dose on Mon12/21/22 at 2200, Until Discontinued Given 12/29/2022 9:28 PM EDT 50 mg Given 12/28/2022 9:32 PM EDT 50 mg Given 12/27/2022 8:30 PM EDT 50 mg trimethobenzamide (Tigan) inj 100 mg 100 mg, Intramuscular, ONCE, On Mon12/22/22 at 0130, For 1 dose Given 12/22/2022 1:18 AM EDT 100 mg Arm Right Upper umeclidinium [place] (INCRUSE ellipta) 62.5 MCG/ACT inhaler 1 Puff 1 Puff, Inhalation, RESPDAILY, First dose on Mon12/21/22 at 0800, Until Discontinued, NURSING TO FOLLOW PATIENT WITH MDI/DPI ADMINISTRATION Given 12/30/2022 8:13 AM EDT 1 Puff Given 12/29/2022 8:15 AM EDT 1 Puff Given 12/28/2022 10:36 AM EDT 1 Puff documented in this encounter Active and Recently Administered Medications Times are shown in EDT. Scheduled Medication Order 12/28/2022 12/29/2022 12/30/2022 ambrisentan (Letairis) tab 10 mg 10 mg, Oral, Daily(AM), First dose on Mon12/27/22 at 0900, Until Discontinued, DO NOT SPLIT, CRUSH, OR CHEW TABLETS 0856 (Given - Provider: SN Heri) 0816 (Given - Provider: Quin Hirsch, NELLIE) 0801 (Given - Provider: Analilia Lara, RN) Ferrous Sulfate (Feosol) tab 325 mg 325 mg, Oral, BID (NOON, 1700), First dose on Mon12/27/22 at 1200, Until Discontinued, This med should NOT be Crushed or Chewed 1136 (Given - Provider: Shivani Hanks RN)1734 (Given - Provider: SN Felicia) 1051 (Given - Provider: Quin Hirsch, RN)1506 (Given - Provider: Quin Hirsch, RN) 1150 (Given - Provider: Analilia Lara, RN) Fluconazole (Diflucan) tab 200 mg 200 mg, Oral, Daily(AM), First dose on Mon12/22/22 at 0900, Last dose on Mon01/04/23 at 0900, For 14 days 0857 (Given - Provider: SN Heri) 0816 (Given - Provider: Quin Hirsch, RN) 0801 (Given - Provider: Analilia Lara, RN) fluticasone (Flonase) nasal inhaler 2 Chloride 2 Chloride, Each Nostril, Daily(AM), First dose on Mon12/25/22 at 0900, Until Discontinued, 50 mcg / Actuation 1035 (Given - Provider: Reggie Burns RN) 0815 (Given - Provider: Quin Hirsch RN) 0803 (Given - Provider: Analilia Lara, NELLIE) fluticasone furoate-vilanterol (BREO ellipta) 200-25 MCG/ACT inhaler 1 Puff 1 Puff, Inhalation, RESPDAILY, First dose on Mon12/21/22 at 0800, Until Discontinued, NURSING TO FOLLOW PATIENT WITH MDI/DPI ADMINISTRATION 0857 (Given - Provider: SN Heri) 0822 (Given - Provider: Quin Hirsch, RN) 0803 (Given - Provider: Analilia Lara, RN) Furosemide (Lasix) inj 60 mg 60 mg, IV Push, Daily(AM), First dose (after last modification) on Mon12/28/22 at 1515, Until Discontinued 1445 (Given - Provider: Reggie Burns RN) 0816 (Given - Provider: Quin Hirsch, NELLIE) 0813 (Given - Provider: Analilia Lara, NELLIE) Gabapentin (Neurontin) cap 600 mg 600 mg, Oral, HS, First dose on Carla 12/22/22 at 2200, Until Discontinued 2130 (Given - Provider: Deanna Matthews RN) 2127 (Given - Provider: Sarbjit Fonseca RN) hEParin inj 5,000 Units 5,000 Units, Subcutaneous, Q8H, First dose on Mon12/25/22 at 1515, Until Discontinued 0533 (Given - Provider: Deanna Matthews RN)1446 (Given - Provider: Reggie Burns RN)2132 (Given - Provider: Deanna Matthews RN) 0547 (Given - Provider: Deanna Matthews, NELLIE)1233 (Given - Provider: Quin Hirsch RN)212 (Given - Provider: Sarbjit Fonseca RN) 0536 (Given - Provider: Sarbjit Fonseca RN)1347 (Given - Provider: Analilia Lara, NELLIE) Lactulose (Constulose) oral soln 30 g 30 g, Oral, TID(AM/NOON/HS), First dose (after last modification) on 12/24/22 at 0600, Until Discontinued, Titrate to 3-4 loose BMs daily 0600 (Not Given - Provider: Deanna Matthews RN - Reason: Parameter(s) Not Met)1200 (Not Given - Provider: Shivani Hanks RN - Reason: Refused-Notify Provider - Comment: Pt states she already had 2 today an if takes another dose will have too many BMs)2200 (Not Given - Provider: Deanna Matthews RN - Reason: Parameter(s) Not Met) 0600 (Not Given - Provider: Deanna Matthews RN - Reason: Parameter(s) Not Met)1050 (Not Given - Provider: Quin Hirsch RN - Reason: Refused-Notify Provider)2128 (Given - Provider: Sarbjit Fonseca RN) 0536 (Given - Provider: Sarbjit Fonseca RN)1150 (Not Given - Provider: Analilia Lara RN - Reason: Refused-Notify Provider - Comment: patent expecting to go home and doesnt want to have to have a bm on the way) levothyroxine (Levoxyl) tab 150 mcg 150 mcg, Oral, [id number], First dose on Mon12/22/22 at 0630, Until Discontinued 0533 (Given - Provider: Deanna Matthews RN) 0547 (Given - Provider: Deanna Matthews RN) 0536 (Given - Provider: Sarbjit Fonseca RN) Lidocaine (Aspercreme) 4 % patch 1 Patch 1 Patch, Transdermal, Daily(AM), First dose on Mon12/21/22 at 1245, Until Discontinued, Apply patch for 12 hours then remove for 12 hours! Remove any Lidocaine patches the patient may currently be wearing prior to applying the new patch 0900 (Not Given - Provider: Shivani Hanks RN - Reason: Refused-Notify Provider) 0821 (Not Given - Provider: Quin Hirsch RN - Reason: Refused-Notify Provider - Comment: patient states it does not work for her) 0900 (Not Given - Provider: Analilia Lara RN - Reason: Refused-Notify Provider) magnesium chloride ER (Mag-64) tab 128 mg 128 mg, Oral, Daily(AM), First dose on Mon12/28/22 at 0900, Until Discontinued, Each tablet contains 64 mg elemental Magnesium Due to various manufacturers, tablets labeled 70mg are considered to be equivalent 0856 (Given - Provider: SN Heri) 0816 (Given - Provider: Quin Hirsch RN) 0801 (Given - Provider: Analilia Lara, NELLIE) mycophenolate (Cellcept) tab 500 mg 500 mg, Oral, BID (.AM/PM), First dose on Mon12/22/22 at 2100, Until Discontinued 0857 (Given - Provider: SN Heri)2130 (Given - Provider: Deanna Matthews RN) 0816 (Given - Provider: Quin Hirsch RN)2127 (Given - Provider: Sarbjit Fonseca RN) 08 (Given - Provider: Analilia Lara, NELLIE) omeprazole (PriLOSEC) cap 20 mg 20 mg, Oral, Daily(AM), First dose on Mon12/22/22 at 0900, Until Discontinued, This med should NOT be Crushed or Chewed 0856 (Given - Provider: SN Heri) 0816 (Given - Provider: Quin Hirsch RN) 08 (Given - Provider: Analilia Lara, NELLIE) oxygen GAS (CANCELED) Inhalation, OXYGEN, First dose on Mon12/21/22 at 0145, Until Discontinued, Device/Managed by: Low Flow Device, Goal SPO2 (%): 91-95, Starting Device: Nasal Cannula, Inital Flow Rate (LPM): 2, Lowest Support: Nasal Cannula: Flow 0-6 LPM. Titrate up/down by 1 LPM., Titration Interval: Q2 minutes and as needed., Notify Provider: For sudden DECREASE in resting SPO2 to less than 85% and when escalating delivery device. 0000 (Oxygen On - Provider: Deanna Matthews RN)0800 (Oxygen On - Provider: SN Heri)1600 (Oxygen On - Provider: Shivani Hanks RN) 0000 (Oxygen On - Provider: Deanna Matthews RN)0800 (Oxygen On - Provider: Quin Hirsch RN) oxygen GAS Inhalation, OXYGEN, First dose (after last modification) on Mon12/29/22 at 1600, Until Discontinued, Device/Managed by: Low Flow Device, Goal SPO2 (%): 91-95, Starting Device: Nasal Cannula, Inital Flow Rate (LPM): 2, Lowest Support: Nasal Cannula: Flow 0-6 LPM. Titrate up/down by 1 LPM., Titration Interval: Q2 minutes and as needed., Notify Provider: For sudden DECREASE in resting SPO2 to less than 85% and when escalating delivery device., Goal >90. Titrate as needed 1700 (Oxygen On - Provider: Quin Hirsch RN) 0000 (Oxygen On - Provider: Sarbjit Fonseca, NELLIE)0800 (Oxygen On - Provider: Analiila Lara, RN)1600 (Oxygen On - Provider: Analilia Lara, NELLIE) potassium and sodium phosphate (Phos-Nak) oral powder 1 Packet 1 Packet, Oral, Daily(AM), First dose on Carla 12/29/22 at 0900, Last dose on 12/31/22 at 0900, For 3 doses, Mix 1 packet in 2.5 ounces (75 mL) of water, stir well and administer promptly. 1 packet contains Phosphorus 250 mg (~8 mMoles) + potassium 280 mg (~7.125 mEq) + sodium 160mg (~7.125 mEq) 1051 (Given - Provider: Quin Hirsch RN) 0801 (Given - Provider: Analilia Lara, NELLIE) sodium chloride 0.9 % flush peripheral tahira 3 mL 3 mL, IV Push, Q8H, First dose on Mon12/21/22 at 0600, Until Discontinued, Do not flush if lock, PICC, or central line not in place; IV infusing or unable to flush. 0534 (Given - Provider: Deanna Matthews RN)1501 (Given - Provider: Reggie Burns RN)2200 (Given - Provider: Deanna Matthews RN) 0600 (Given - Provider: Deanna Matthews, NELLIE)1233 (Given - Provider: Quin Hirsch RN)2128 (Given - Provider: Sarbjit Fonseca, NELLIE) 0536 (Given - Provider: Sarbjit Fonseca RN)1400 (Given - Provider: Analilia Lara, NELLIE) Tadalafil tab 20 mg (Patient Supplied Medication) 40 mg, Oral, Daily(AM), First dose on Mon12/25/22 at 0900, Until Discontinued 0857 (Given - Provider: SN Heri) 0815 (Given - Provider: Quin Hirsch RN) 0801 (Given - Provider: Analilia Lara, NELLIE) traZODone (Desyrel) tab 50 mg 50 mg, Oral, QHS, First dose on Mon12/21/22 at 2200, Until Discontinued 2131 (Given - Provider: Deanna Matthews, NELLIE) 2127 (Given - Provider: Sarbjit Fonseca RN) umeclidinium [place] (INCRUSE ellipta) 62.5 MCG/ACT inhaler 1 Puff 1 Puff, Inhalation, RESPDAILY, First dose on Mon12/21/22 at 0800, Until Discontinued, NURSING TO FOLLOW PATIENT WITH MDI/DPI ADMINISTRATION 1036 (Given - Provider: Reggie Burns RN - Comment: had to order from pharmacy) 0815 (Given - Provider: Quin Hirsch RN) 0813 (Given - Provider: Analilia Lara, NELLIE) PRN Medication Order 12/28/2022 12/29/2022 12/30/2022 Acetaminophen (Tylenol) tab 650 mg 650 mg, Oral, Q6H PRN Headache, Starting on Mon12/28/22 at 1144, Until Mon12/30/22 at 2013, Maximum of 4 grams (4000 mg) per day. 1209 (Given - Provider: Reggie Burns RN)2141 (Given - Provider: Deanna Matthews, NELLIE) 0822 (Given - Provider: Quin Hirsch RN)1506 (Given - Provider: Quin Hirsch RN) Albuterol Sulfate (Proventil) (2.5 MG/3ML) 0.083% inhalation solution 2.5 mg 2.5 mg, Nebulizer, Q4H PRN Other, wheezing, Starting on Mon12/21/22 at 0159, Until Mon12/30/22 at 2013 carboxymethylcell-glyc maximino PF (Refresh Optive) ophthalmic solution 1 Drop 1 Drop, Both eyes, DAILY PRN Other, Dry or burning eyes, Starting on Mon12/26/22 at 1208, Until Mon12/30/22 at 2013 1638 (Given - Provider: Shivani Hanks RN) loperamide (Imodium) cap 2 mg 2 mg, Oral, Q4H PRN Diarrhea, Starting on Mon12/26/22 at 1324, Until Mon12/30/22 at 2013, Maximum of 16 mg per day recommended ondansetron (Zofran) inj 4 mg 4 mg, IV Push, Q6H PRN Nausea, Vomiting, Starting on Mon12/21/22 at 2020, Until Mon12/30/22 at 2013 1718 (Given - Provider: Quin Hirsch, RN) tap water enema 1 Enema 1 Enema, Rectal, PRN Constipation, Other, Pre-Procedure, Starting on Carla 12/22/22 at 0600, Until Mon12/30/22 at 2012, For 1 dose, 250 mL tap water enema - Pre Procedure PRN traMADol (Ultram) tab 50 mg 50 mg, Oral, Q6H PRN Pain, Severe, Starting on Mon12/21/22 at 1208, Until Mon12/30/22 at 2012 0535 (Given - Provider: Deanna Matthews RN)1734 (Given - Provider: SN Felicia) 0547 (Given - Provider: Deanna Matthews RN)1506 (Given - Provider: Quin Hirsch, NELLIE) 0813 (Given - Provider: Analilia Lara, NELLIE) documented in this encounter Additional Health Concerns Infection Onset Date Last Indicated Resolved Time Respiratory Rule-Out 12/21/2022 12/21/2022 023 7:51 AM EDT COVID-19 Rule-Out 12/21/2022 12/21/2022 12/21/2022 7:51 AM EDT documented as of this encounter Advance Directives [...] the patient have Health Care Power of Food [employer]? No Full Code 12/06/2019 4:21 AM 12/11/2019 5:39 PM This o rder reflects the patients wishes and were consensually agreed upon. 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
--- OUTSIDE RECORDS SUMMARY | 2023-03-19 22:31 | External Medical Summary ---
Author Name Unknown Address Unknown Organization [id number]:LABORATORY [facility] - [address] [facility] [address] Laboratory Report Ordering Provider Test Date Status ESEQUIEL HERNANDEZ 12/27/2022 07:55:00 Final Observation Date Value Abnormality Reference (Units ) Status Magnesium 12/27/2022 07:55:00 1.9 1.5-2.6 (m g/dL) Final Performing Location [facility] - [address] [facility] [address]
--- OUTSIDE RECORDS SUMMARY | 2023-03-19 22:31 | External Medical Summary ---
Author Name Unknown Address Unknown Organization [id number][place] [facility] [place] [facility] [address] [facility] [address] Laboratory Report Ordering Provider Test Date Status ESEQUIEL HERNANDEZ 12/28/2022 08:46:00 Final Observation Date Value Abnormality Reference (Units ) Status WBC, Total 12/28/2022 08:46:00 7.55 4.00-10.80 (K/uL) Final RBC 12/28/2022 08:46:00 3.30 3.85-5.15 (M/uL) Final Hemoglobin 12/28/2022 08:46:00 7.5 Below low normal 12.0-15.3 (g/dL) Final HCT 12/28/2022 08:46:00 26.9 Below low normal 36.0-45.2 (%) Final MCV 12/28/2022 08:46:00 81.5 81.5-97.5 (fL) Final MCH 12/28/2022 08:46:00 22.7 27.0-34.0 (pg) Final MCHC 12/28/2022 08:46:00 27.9 32.0-36.0 (g/dL) Final RDW 12/28/2022 08:46:00 29.8 11.5-15.5 (%) Final Platelets 12/28/2022 08:46:00 229 140-400 (K/uL) Final MPV 12/28/2022 08:46:00 10.6 6.6-11.1 (fL) Final Nucleated erythrocytes/100 leukocytes [Ratio] in Blood by Automated count 12/28/2022 08:46:00 0 <=0 (/100 WBCs) Final Performing Location [place] [facility] [place] [address] [facility] [address]
--- OUTSIDE RECORDS SUMMARY | 2023-03-19 22:31 | External Medical Summary ---
Author Name Unknown Address Unknown Organization [id number]:LAB[facility]ATORY [facility] - [address] [place] [address] Laboratory Report Ordering Provider Test Date Status ALISIA ADAMS 12/26/2022 07:23:00 Final Observation Date Value Abnormality Reference (Units ) Status Albumin 12/26/2022 07:23:00 2.5 Below low normal 3.8-5.0 (g/dL) Final AST (Aspartate aminotransferase) 12/26/2022 07:23:00 11 10-35 (U/L) Final Alk Phos 12/26/2022 07:23:00 62 35-130 (U/L) Final ALT (Alanine aminotransferase) 12/26/2022 07:23:00 10 10-35 (U/L) Final Bilirubin, Total 12/26/2022 07:23:00 0.5 <=1.2 (mg/dL) Final Bilirubin, Direct 12/26/2022 07:23:00 <0.2 0.0-0.3 (mg/dL) Final Protein 12/26/2022 07:23:00 5.5 Below low normal 6.0-8.3 (g/dL) Final Performing Location LAB[facility]ATORY [facility] - [address] [address]
--- OUTSIDE RECORDS SUMMARY | 2023-03-19 22:31 | External Medical Summary ---
Author Name Unknown Address Unknown Organization [id number]:LABORATORY [facility] - [address] [place] [address] Laboratory Report Ordering Provider Test Date Status ALISIA ADAMS 12/25/2022 08:36:00 Final Observation Date Value Abnormality Reference (Units ) Status Phosphate 12/25/2022 08:36:00 3.1 2.5-4.8 (m g/dL) Final Performing Location [facility] - [address] [facility] [address]
--- OUTSIDE RECORDS SUMMARY | 2023-03-19 22:31 | External Medical Summary ---
Author Name Unknown Address Unknown Organization [id number]:[facility] [place] - [facility] [address] [facility] [address] Laboratory Report Ordering Provider Test Date Status VILMA HERNANDEZ 12/23/2022 06:29:00 Final Observation Date Value Abnormality Reference (Units ) Status WBC, Total 12/23/2022 06:29:00 10.97 Above high normal 4.00-10.80 (K/uL) Final RBC 12/23/2022 06:29:00 3.44 3.85-5.15 (M/uL) Final Hemoglobin 12/23/2022 06:29:00 7.5 Below low normal 12.0-15.3 (g/dL) Final HCT 12/23/2022 06:29:00 26.6 Below low normal 36.0-45.2 (%) Final MCV 12/23/2022 06:29:00 77.3 81.5-97.5 (fL) Final MCH 12/23/2022 06:29:00 21.8 27.0-34.0 (pg) Final MCHC 12/23/2022 06:29:00 28.2 32.0-36.0 (g/dL) Final RDW 12/23/2022 06:29:00 24.3 11.5-15.5 (%) Final Platelets 12/23/2022 06:29:00 186 140-400 (K/uL) Final MPV 12/23/2022 06:29:00 10.5 6.6-11.1 (fL) Final Nucleated erythrocytes/100 leukocytes [Ratio] in Blood by Automated count 12/23/2022 06:29:00 0 <=0 (/100 WBCs) Final Performing Location [facility] [place] - [address] [place] [address]
--- OUTSIDE RECORDS SUMMARY | 2023-03-19 22:31 | External Medical Summary ---
Author Name Unknown Address Unknown Organization [id number]:LABORATORY [facility] - [address] [facility] [address] Laboratory Report Ordering Provider Test Date Status ALISIA ADAMS 12/26/2022 07:23:00 Final Observation Date Value Abnormality Reference (Units ) Status BUN 12/26/2022 07:23:00 4 Below low normal 6-20 (mg/dL) Final Creatinine 12/26/2022 07:23:00 0.7 0.5-1.0 (mg/dL) Final Glomerular filtration rate/1.73 sq M.predicted [Volume Rate/Area] in Serum, Plasma or Blood by Creatinine-based formula (CKD-EPI) 12/26/2022 07:23:00 >90 >=60 (mL/min) Final eGFR is calculated based on the CKD-EPI 2020 equation SODIUM 12/26/2022 07:23:00 136 135-146 (m mol/L) Final Potassium 12/26/2022 07:23:00 3.1 Below low normal 3.5 -5.1 (mmol/L) Final Cl 12/26/2022 07:23:00 95 Below low normal 98- 107 (mmol/L) Final CO2 12/26/2022 07:23:00 31 22-32 (mmo l/L) Final Anion gap 12/26/2022 07:23:00 10 7-15 (mmol /L) Final Glucose 12/26/2022 07:23:00 87 70-120 (mg /dL) Final Calcium 12/26/2022 07:23:00 7.4 Below low normal 8.4 -10.2 (mg/dL) Final Performing Location LABORATORY [facility] - [address] [place] [address]
--- OUTSIDE RECORDS SUMMARY | 2023-03-19 22:31 | External Medical Summary ---
Author Name Unknown Address Unknown Organization [id number]:[facility] [place] - [facility] [address] [facility] [address] Laboratory Report Ordering Provider Test Date Status ESEQUIEL HERNANDEZ 12/25/2022 11:00:00 Final Observation Date Value Abnormality Reference (Units ) Status WBC, Total 12/25/2022 11:00:00 10.13 4.00-10.80 (K/uL) Final RBC 12/25/2022 11:00:00 3.56 3.85-5.15 (M/uL) Final Hemoglobin 12/25/2022 11:00:00 8.0 Below low normal 12.0-15.3 (g/dL) Final HCT 12/25/2022 11:00:00 28.3 Below low normal 36.0-45.2 (%) Final MCV 12/25/2022 11:00:00 79.5 81.5-97.5 (fL) Final MCH 12/25/2022 11:00:00 22.5 27.0-34.0 (pg) Final MCHC 12/25/2022 11:00:00 28.3 32.0-36.0 (g/dL) Final RDW 12/25/2022 11:00:00 27.5 11.5-15.5 (%) Final Platelets 12/25/2022 11:00:00 183 140-400 (K/uL) Final MPV 12/25/2022 11:00:00 10.7 6.6-11.1 (fL) Final Nucleated erythrocytes/100 leukocytes [Ratio] in Blood by Automated count 12/25/2022 11:00:00 1 Above high normal <=0 (/100 WBCs) Final Performing Location LABORATORY [facility] [place] - [address] [facility] [address]
--- OUTSIDE RECORDS SUMMARY | 2023-03-19 22:31 | External Medical Summary ---
Author Name Unknown Address Unknown Organization K01:LABORATORY [facility] - [address] [facility] [address] Laboratory Report Ordering Provider Test Date Status ALISIA ADAMS 12/26/2022 07:23:00 Final Observation Date Value Abnormality Reference (Units ) Status Magnesium 12/26/2022 07:23:00 1.9 1.5-2.6 (m g/dL) Final Performing Location [facility] - [address] [facility] [address]
--- OUTSIDE RECORDS SUMMARY | 2023-03-19 22:31 | External Medical Summary ---
Author Name Unknown Address Unknown Organization K01:LAB[facility]ATORY [facility] - [address] [place] [address] Laboratory Report Ordering Provider Test Date Status VILMA HERNANDEZ 12/22/2022 04:37:00 Final Observation Date Value Abnormality Reference (Units ) Status Phosphate 12/22/2022 04:37:00 3.3 2.5-4.8 (m g/dL) Final Performing Location [facility] - [address] [place] [address]
--- OUTSIDE RECORDS SUMMARY | 2023-03-19 22:31 | External Medical Summary ---
Author Name Unknown Address Unknown Organization K01[place] [facility] [place] [address] [place] [address] Laboratory Report Ordering Provider Test Date Status ALISIA ADAMS 12/25/2022 08:36:00 Final Observation Date Value Abnormality Reference (Units ) Status Albumin 12/25/2022 08:36:00 2.6 Below low normal 3.8-5.0 (g/dL) Final AST (Aspartate aminotransferase) 12/25/2022 08:36:00 10 10-35 (U/L) Final Alk Phos 12/25/2022 08:36:00 66 35-130 (U/L) Final ALT (Alanine aminotransferase) 12/25/2022 08:36:00 8 Below low normal 10-35 (U/L) Final Bilirubin, Total 12/25/2022 08:36:00 0.4 <=1.2 (mg/dL) Final Bilirubin, Direct 12/25/2022 08:36:00 <0.2 0.0-0.3 (mg/dL) Final Protein 12/25/2022 08:36:00 5.5 Below low normal 6.0-8.3 (g/dL) Final Performing Location [facility] [place] [address] [place] [address]
--- OUTSIDE RECORDS SUMMARY | 2023-03-19 22:31 | External Medical Summary ---
Author Name Unknown Address Unknown Organization K01:LABORATORY [facility] [place] [address] [place] [address] Laboratory Report Ordering Provider Test Date Status VILMA HERNANDEZ 12/23/2022 06:29:00 Final Observation Date Value Abnormality Reference (Units ) Status Phosphate 12/23/2022 06:29:00 2.2 Below low normal 2.5 -4.8 (mg/dL) Final Performing Location [facility] - [address] [place] [address]
--- OUTSIDE RECORDS SUMMARY | 2023-03-19 22:31 | External Medical Summary ---
Author Name Unknown Address Unknown Organization K01:LAB[facility]ATORY [facility] [place] - [address] [place] [address] Laboratory Report Ordering Provider Test Date Status ALISIA ADAMS 12/24/2022 06:34:00 Final Observation Date Value Abnormality Reference (Units ) Status Albumin 12/24/2022 06:34:00 2.6 Below low normal 3.8-5.0 (g/dL) Final AST (Aspartate aminotransferase) 12/24/2022 06:34:00 11 10-35 (U/L) Final Alk Phos 12/24/2022 06:34:00 66 35-130 (U/L) Final ALT (Alanine aminotransferase) 12/24/2022 06:34:00 9 Below low normal 10-35 (U/L) Final Bilirubin, Total 12/24/2022 06:34:00 0.4 <=1.2 (mg/dL) Final Bilirubin, Direct 12/24/2022 06:34:00 <0.2 0.0-0.3 (mg/dL) Final Protein 12/24/2022 06:34:00 5.7 Below low normal 6.0-8.3 (g/dL) Final Performing Location LABORATORY [facility] [place] - [address] [place] [address]
--- OUTSIDE RECORDS SUMMARY | 2023-03-19 22:31 | External Medical Summary ---
Author Name Unknown Address Unknown Organization K01:LABORATORY [facility] - [address] [place] [address] Laboratory Report Ordering Provider Test Date Status VILMA HERNANDEZ 12/22/2022 12:46:00 Final Observation Date Value Abnormality Reference (Units ) Status LDH 12/22/2022 12:46:00 176 <=250 (U/L ) Final Performing Location [facility] - [address] [place] [address]
--- OUTSIDE RECORDS SUMMARY | 2023-03-19 22:31 | External Medical Summary ---
Author Name Unknown Address Unknown Organization K01:[place] [facility] [place] [facility] [address] [facility] [address] Laboratory Report Ordering Provider Test Date Status VILMA HERNANDEZ 12/22/2022 04:37:00 Final Observation Date Value Abnormality Reference (Units ) Status WBC, Total 12/22/2022 04:37:00 9.42 4.00-10.80 (K/uL) Final RBC 12/22/2022 04:37:00 3.65 3.85-5.15 (M/uL) Final Hemoglobin 12/22/2022 04:37:00 7.8 Below low normal 12.0-15.3 (g/dL) Final HCT 12/22/2022 04:37:00 27.7 Below low normal 36.0-45.2 (%) Final MCV 12/22/2022 04:37:00 75.9 81.5-97.5 (fL) Final MCH 12/22/2022 04:37:00 21.4 27.0-34.0 (pg) Final MCHC 12/22/2022 04:37:00 28.2 32.0-36.0 (g/dL) Final RDW 12/22/2022 04:37:00 22.1 11.5-15.5 (%) Final Platelets 12/22/2022 04:37:00 218 140-400 (K/uL) Final MPV 12/22/2022 04:37:00 11.5 6.6-11.1 (fL) Final Nucleated erythrocytes/100 leukocytes [Ratio] in Blood by Automated count 12/22/2022 04:37:00 0 <=0 (/100 WBCs) Final Performing [place] [facility] [facility] [place] [address] [facility] [address]
--- OUTSIDE RECORDS SUMMARY | 2023-03-19 22:31 | External Medical Summary ---
Author Name Unknown Address Unknown Organization K01:LABORATORY [facility] [place] - [facility] [address] [facility] [address] Laboratory Report Ordering Provider Test Date Status ESEQUIEL HERNANDEZ 12/27/2022 07:58:00 Final Observation Date Value Abnormality Reference (Units ) Status WBC, Total 12/27/2022 07:58:00 7.76 4.00-10.80 (K/uL) Final RBC 12/27/2022 07:58:00 3.70 3.85-5.15 (M/uL) Final Hemoglobin 12/27/2022 07:58:00 8.3 Below low normal 12.0-15.3 (g/dL) Final HCT 12/27/2022 07:58:00 29.5 Below low normal 36.0-45.2 (%) Final MCV 12/27/2022 07:58:00 79.7 81.5-97.5 (fL) Final MCH 12/27/2022 07:58:00 22.4 27.0-34.0 (pg) Final MCHC 12/27/2022 07:58:00 28.1 32.0-36.0 (g/dL) Final RDW 12/27/2022 07:58:00 29.2 11.5-15.5 (%) Final Platelets 12/27/2022 07:58:00 239 140-400 (K/uL) Final MPV 12/27/2022 07:58:00 10.7 6.6-11.1 (fL) Final Nucleated erythrocytes/100 leukocytes [Ratio] in Blood by Automated count 12/27/2022 07:58:00 1 Above high normal <=0 (/100 WBCs) Final Performing Location LABORATORY [facility] [place] - [address] [facility] [address]
--- OUTSIDE RECORDS SUMMARY | 2023-03-19 22:31 | External Medical Summary ---
Author Name Unknown Address Unknown Organization K01:LABORATORY C - [address] [place] [address] Laboratory Report Ordering Provider Test Date Status VILMA HERNANDEZ 12/22/2022 04:37:00 Final Observation Date Value Abnormality Reference (Units ) Status Magnesium 12/22/2022 04:37:00 2.0 1.5-2.6 (m g/dL) Final Performing Location [facility] - [address] [facility] [address]
--- OUTSIDE RECORDS SUMMARY | 2023-03-19 22:31 | External Medical Summary ---
Author Name Unknown Address Unknown Organization [id number]:LABORATORY [facility] [place] - [address] [facility] [address] Laboratory Report Ordering Provider Test Date Status ALISIA ADAMS 12/25/2022 08:36:00 Final Observation Date Value Abnormality Reference (Units ) Status Calcium.ionized [Moles/volume] in Blood by Ion-selective membrane electrode (ISE) 12/25/2022 08:36:00 1.05 Below low normal 1.13-1.32 (mmol/L) Final Performing Location LABORATORY [facility] [place] - [address] [place] [address]
--- OUTSIDE RECORDS SUMMARY | 2023-03-19 22:31 | External Medical Summary ---
Author Name Unknown Address Unknown Organization [id number]:LABORATORY [facility] [place] - [address] [facility] [address] Laboratory Report Ordering Provider Test Date Status VILMA HERNANDEZ 12/22/2022 12:46:00 Final Observation Date Value Abnormality Reference (Units ) Status Haptoglobin 12/22/2022 12:46:00 85 30-200 ( mg/dL) Final Performing Location [facility] - [address] [facility] [address]
--- OUTSIDE RECORDS SUMMARY | 2023-03-19 22:31 | External Medical Summary ---
Author Name Unknown Address Unknown Organization [id number]:[place]ORY [facility] [place] - [facility] [address] [facility] [address] Laboratory Report Ordering Provider Test Date Status NANO ALFARO 12/28/2022 08:46:00 Final Observation Date Value Abnormality Reference (Units ) Status BUN 12/28/2022 08:46:00 5 Below low normal 6-20 (mg/dL) Final Creatinine 12/28/2022 08:46:00 0.7 0.5-1.0 (mg/dL) Final Glomerular filtration rate/1.73 sq M.predicted [Volume Rate/Area] in Serum, Plasma or Blood by Creatinine-based formula (CKD-EPI) 12/28/2022 08:46:00 >90 >=60 (mL/min) Final eGFR is calculated based on the CKD-EPI 2020 equation SODIUM 12/28/2022 08:46:00 137 135-146 (m mol/L) Final Potassium 12/28/2022 08:46:00 4.4 3.5-5.1 (m mol/L) Final Cl 12/28/2022 08:46:00 104 98-107 (mm ol/L) Final CO2 12/28/2022 08:46:00 24 22-32 (mmo l/L) Final Anion gap 12/28/2022 08:46:00 9 7-15 (mmol /L) Final Glucose 12/28/2022 08:46:00 82 70-120 (mg /dL) Final Calcium 12/28/2022 08:46:00 8.3 Below low normal 8.4 -10.2 (mg/dL) Final Performing Location LABORATORY [facility] [place] - [address] [facility] [address]
--- OUTSIDE RECORDS SUMMARY | 2023-03-19 22:31 | External Medical Summary ---
Author Name Unknown Address Unknown Organization K01:LABORATORY [facility] [place] - [address] [place] [address] Laboratory Report Ordering Provider Test Date Status NANO ALFARO 12/28/2022 08:46:00 Final Observation Date Value Abnormality Reference (Units ) Status Troponin T 12/28/2022 08:46:00 7 <=14 (ng/ L) Final Performing Location [facility] - [address] [place] [address]
--- OUTSIDE RECORDS SUMMARY | 2023-03-19 22:31 | External Medical Summary ---
Author Name Unknown Address Unknown Organization K01:LABORATORY [facility] [place] - [facility] [address] [facility] [address] Laboratory Report Ordering Provider Test Date Status VILMA HERNANDEZ 12/23/2022 17:43:00 Final Observation Date Value Abnormality Reference (Units ) Status WBC, Total 12/23/2022 17:43:00 12.18 Above high normal 4.00-10.80 (K/uL) Final RBC 12/23/2022 17:43:00 3.50 3.85-5.15 (M/uL) Final Hemoglobin 12/23/2022 17:43:00 7.8 Below low normal 12.0-15.3 (g/dL) Final HCT 12/23/2022 17:43:00 26.9 Below low normal 36.0-45.2 (%) Final MCV 12/23/2022 17:43:00 76.9 81.5-97.5 (fL) Final MCH 12/23/2022 17:43:00 22.3 27.0-34.0 (pg) Final MCHC 12/23/2022 17:43:00 29.0 32.0-36.0 (g/dL) Final RDW 12/23/2022 17:43:00 25.3 11.5-15.5 (%) Final Platelets 12/23/2022 17:43:00 205 140-400 (K/uL) Final MPV 12/23/2022 17:43:00 10.3 6.6-11.1 (fL) Final Nucleated erythrocytes/100 leukocytes [Ratio] in Blood by Automated count 12/23/2022 17:43:00 0 <=0 (/100 WBCs) Final Performing Location LABORATORY [facility] [place] - [address] [facility] [address]
--- OUTSIDE RECORDS SUMMARY | 2023-03-19 22:31 | External Medical Summary ---
Author Name Unknown Address Unknown Organization K01:LABORATORY C - [address] [facility] [address] Laboratory Report Ordering Provider Test Date Status NANO ALFARO 12/28/2022 08:46:00 Final Observation Date Value Abnormality Reference (Units ) Status Phosphate 12/28/2022 08:46:00 2.6 2.5-4.8 (m g/dL) Final Performing Location [facility] - [address] [facility] [address]
--- OUTSIDE RECORDS SUMMARY | 2023-03-19 22:31 | External Medical Summary ---
Author Name Unknown Address Unknown Organization K01:LABORATORY [facility] [place] - [address] [facility] [address] Laboratory Report Ordering Provider Test Date Status VILMA HERNANDEZ 12/23/2022 06:29:00 Final Observation Date Value Abnormality Reference (Units ) Status BUN 12/23/2022 06:29:00 13 6-20 (mg/dL) Final Creatinine 12/23/2022 06:29:00 0.9 0.5-1.0 (mg/dL) Final Glomerular filtration rate/1.73 sq M.predicted [Volume Rate/Area] in Serum, Plasma or Blood by Creatinine-based formula (CKD-EPI) 12/23/2022 06:29:00 80 >=60 (mL/min) Final eGFR is calculated based on the CKD-EPI 2020 equation SODIUM 12/23/2022 06:29:00 138 135-146 (m mol/L) Final Potassium 12/23/2022 06:29:00 3.2 Below low normal 3.5 -5.1 (mmol/L) Final Cl 12/23/2022 06:29:00 100 98-107 (mm ol/L) Final CO2 12/23/2022 06:29:00 29 22-32 (mmo l/L) Final Anion gap 12/23/2022 06:29:00 9 7-15 (mmol /L) Final Glucose 12/23/2022 06:29:00 95 70-120 (mg /dL) Final Calcium 12/23/2022 06:29:00 8.1 Below low normal 8.4 -10.2 (mg/dL) Final Performing Location LABORATORY [facility] [place] - [address] [place] [address]
--- OUTSIDE RECORDS SUMMARY | 2023-03-19 22:31 | External Medical Summary ---
Author Name Unknown Address Unknown Organization K01:LABORATORY C - [address] [place] [address] Laboratory Report Ordering Provider Test Date Status VILMA HERNANDEZ 12/23/2022 06:29:00 Final Observation Date Value Abnormality Reference (Units ) Status Magnesium 12/23/2022 06:29:00 1.7 1.5-2.6 (m g/dL) Final Performing Location [facility] - [address] [place] [address]
--- OUTSIDE RECORDS SUMMARY | 2023-03-19 22:31 | External Medical Summary ---
Author Name Unknown Address Unknown Organization K01:LAB[facility]ATORY [facility] [place] [facility] [address] [facility] [address] Laboratory Report Ordering Provider Test Date Status ALISIA ADAMS 12/24/2022 06:34:00 Final Observation Date Value Abnormality Reference (Units ) Status WBC, Total 12/24/2022 06:34:00 12.05 Above high normal 4.00-10.80 (K/uL) Final RBC 12/24/2022 06:34:00 3.40 3.85-5.15 (M/uL) Final Hemoglobin 12/24/2022 06:34:00 7.4 Below low normal 12.0-15.3 (g/dL) Final HCT 12/24/2022 06:34:00 26.7 Below low normal 36.0-45.2 (%) Final MCV 12/24/2022 06:34:00 78.5 81.5-97.5 (fL) Final MCH 12/24/2022 06:34:00 21.8 27.0-34.0 (pg) Final MCHC 12/24/2022 06:34:00 27.7 32.0-36.0 (g/dL) Final RDW 12/24/2022 06:34:00 26.5 11.5-15.5 (%) Final Platelets 12/24/2022 06:34:00 197 140-400 (K/uL) Final MPV 12/24/2022 06:34:00 10.7 6.6-11.1 (fL) Final Nucleated erythrocytes/100 leukocytes [Ratio] in Blood by Automated count 12/24/2022 06:34:00 0 <=0 (/100 WBCs) Final Performing Location LAB[facility]ATORY [facility] [place] [address] [facility] [address]
--- OUTSIDE RECORDS SUMMARY | 2023-03-19 22:31 | External Medical Summary ---
Author Name Unknown Address Unknown Organization K01:LABORATORY [place] [address] [address] [facility] [address] Laboratory Report Ordering Provider Test Date Status VILMA HERNANDEZ 12/22/2022 04:37:00 Final Observation Date Value Abnormality Reference (Units ) Status Retic, % (auto) 12/22/2022 04:37:00 1.67 0.80-1.90 (%) Final Reticulocytes, Absolute 12/22/2022 04:37:00 59.6 31.3-100.1 (K/uL) Final Reticulocyte fraction, immature 12/22/2022 04:37:00 51.6 Above high normal 2.5-20.6 (%) Final Reticulocyte HGB 12/22/2022 04:37:00 24.2 Below low normal 29.7-37.4 (pg) Final Performing Location LABORATORY [facility] [address] [facility] [address]
--- OUTSIDE RECORDS SUMMARY | 2023-03-19 22:31 | External Medical Summary ---
Author Name Unknown Address Unknown Organization K01:LABORATORY [facility] [place] - [address] [facility] [address] Laboratory Report Ordering Provider Test Date Status ALISIA ADAMS 12/25/2022 08:36:00 Final Observation Date Value Abnormality Reference (Units ) Status Magnesium 12/25/2022 08:36:00 1.3 Below low normal 1.5 -2.6 (mg/dL) Final Performing Location LABORATORY C - [address] [facility] [address]
--- OUTSIDE RECORDS SUMMARY | 2023-03-19 22:31 | External Medical Summary ---
Author Name Unknown Address Unknown Organization K01:LABORATORY [facility] - [address] [facility] [address] Laboratory Report Ordering Provider Test Date Status ALISIA ADAMS 12/24/2022 06:34:00 Final Observation Date Value Abnormality Reference (Units ) Status Magnesium 12/24/2022 06:34:00 1.8 1.5-2.6 (m g/dL) Final Performing Location [facility] - [address] [facility] [address]
--- OUTSIDE RECORDS SUMMARY | 2023-03-19 22:31 | External Medical Summary ---
Author Name Unknown Address Unknown Organization K01:[place] [facility] [place] [facility] [address] [facility] [address] Laboratory Report Ordering Provider Test Date Status VILMA HERNANDEZ 12/22/2022 18:23:00 Final Observation Date Value Abnormality Reference (Units ) Status WBC, Total 12/22/2022 18:23:00 9.67 4.00-10.80 (K/uL) Final RBC 12/22/2022 18:23:00 3.61 3.85-5.15 (M/uL) Final Hemoglobin 12/22/2022 18:23:00 7.9 Below low normal 12.0-15.3 (g/dL) Final HCT 12/22/2022 18:23:00 27.2 Below low normal 36.0-45.2 (%) Final MCV 12/22/2022 18:23:00 75.3 81.5-97.5 (fL) Final MCH 12/22/2022 18:23:00 21.9 27.0-34.0 (pg) Final MCHC 12/22/2022 18:23:00 29.0 32.0-36.0 (g/dL) Final RDW 12/22/2022 18:23:00 23.7 11.5-15.5 (%) Final Platelets 12/22/2022 18:23:00 191 140-400 (K/uL) Final MPV 12/22/2022 18:23:00 10.8 6.6-11.1 (fL) Final Nucleated erythrocytes/100 leukocytes [Ratio] in Blood by Automated count 12/22/2022 18:23:00 0 <=0 (/100 WBCs) Final Performing Location [place] [facility] [place] [facility] [address] [facility] [address]
--- OUTSIDE RECORDS SUMMARY | 2023-03-19 22:31 | External Medical Summary ---
Author Name Unknown Address Unknown Organization K01:LABORATORY [facility] [place] - [facility] [address] [facility] [address] Laboratory Report Ordering Provider Test Date Status ESEQUIEL HERNANDEZ 12/26/2022 07:23:00 Final Observation Date Value Abnormality Reference (Units ) Status WBC, Total 12/26/2022 07:23:00 9.25 4.00-10.80 (K/uL) Final RBC 12/26/2022 07:23:00 3.43 3.85-5.15 (M/uL) Final Hemoglobin 12/26/2022 07:23:00 7.5 Below low normal 12.0-15.3 (g/dL) Final HCT 12/26/2022 07:23:00 26.7 Below low normal 36.0-45.2 (%) Final MCV 12/26/2022 07:23:00 77.8 81.5-97.5 (fL) Final MCH 12/26/2022 07:23:00 21.9 27.0-34.0 (pg) Final MCHC 12/26/2022 07:23:00 28.1 32.0-36.0 (g/dL) Final RDW 12/26/2022 07:23:00 28.0 11.5-15.5 (%) Final Platelets 12/26/2022 07:23:00 207 140-400 (K/uL) Final MPV 12/26/2022 07:23:00 10.7 6.6-11.1 (fL) Final Nucleated erythrocytes/100 leukocytes [Ratio] in Blood by Automated count 12/26/2022 07:23:00 1 Above high normal <=0 (/100 WBCs) Final Performing Location LABORATORY [facility] [place] - [address] [facility] [address]
--- OUTSIDE RECORDS SUMMARY | 2023-03-19 22:31 | External Medical Summary ---
Author Name Unknown Address Unknown Organization K01:LABORATORY [facility] [place] - [address] [place] [address] Laboratory Report Ordering Provider Test Date Status MARYONEALJAMESCOLTONThao 12/22/2022 04:37:00 Final Observation Date Value Abnormality Reference (Units ) Status Calcium.ionized [Moles/volume] in Blood by Ion-selective membrane electrode (ISE) 12/22/2022 04:37:00 1.11 Below low normal 1.13-1.32 (mmol/L) Final Performing Location LABORATORY [facility] [place] - [address] [place] [address]
--- OUTSIDE RECORDS SUMMARY | 2023-03-19 22:31 | External Medical Summary ---
Author Name Unknown Address Unknown Organization K01:LABORATORY C - [address] [place] [address] Laboratory Report Ordering Provider Test Date Status ALISIA ADAMS 12/24/2022 06:34:00 Final Observation Date Value Abnormality Reference (Units ) Status Phosphate 12/24/2022 06:34:00 2.5 2.5-4.8 (m g/dL) Final Performing Location [facility]ORY [facility] - [address] [facility] [address]
--- OUTSIDE RECORDS SUMMARY | 2023-03-19 22:31 | External Medical Summary ---
Author Name Unknown Address Unknown Organization K01:LABORATORY [facility] [place] - [address] [place] [address] Laboratory Report Ordering Provider Test Date Status ALISIA ADAMS 12/26/2022 07:23:00 Final Observation Date Value Abnormality Reference (Units ) Status Calcium.ionized [Moles/volume] in Blood by Ion-selective membrane electrode (ISE) 12/26/2022 07:23:00 1.05 Below low normal 1.13-1.32 (mmol/L) Final Performing Location LABORATORY [facility] [place] - [address] [place] [address]
--- OUTSIDE RECORDS SUMMARY | 2023-03-19 22:31 | External Medical Summary ---
Author Name Unknown Address Unknown Organization K01:[facility] [facility] [place] [address] [facility] [address] Laboratory Report Ordering Provider Test Date Status ALISIA ADAMS 12/24/2022 06:34:00 Final Observation Date Value Abnormality Reference (Units ) Status BUN 12/24/2022 06:34:00 7 6-20 (mg/dL) Final Creatinine 12/24/2022 06:34:00 0.7 0.5-1.0 (mg/dL) Final Glomerular filtration rate/1.73 sq M.predicted [Volume Rate/Area] in Serum, Plasma or Blood by Creatinine-based formula (CKD-EPI) 12/24/2022 06:34:00 >90 >=60 (mL/min) Final eGFR is calculated based on the CKD-EPI 2020 equation SODIUM 12/24/2022 06:34:00 139 135-146 (m mol/L) Final Potassium 12/24/2022 06:34:00 3.5 3.5-5.1 (m mol/L) Final Cl 12/24/2022 06:34:00 102 98-107 (mm ol/L) Final CO2 12/24/2022 06:34:00 28 22-32 (mmo l/L) Final Anion gap 12/24/2022 06:34:00 9 7-15 (mmol /L) Final Glucose 12/24/2022 06:34:00 107 70-120 (mg /dL) Final Calcium 12/24/2022 06:34:00 8.2 Below low normal 8.4 -10.2 (mg/dL) Final Performing Location LAB[facility]ORY [facility] [place] [address] [facility] [address]
--- OUTSIDE RECORDS SUMMARY | 2023-03-19 22:31 | External Medical Summary | Summary of Care ---
Author Name Unknown Organization [facility] Address [address] [place] [address] Phone [phone] Care Team Providers Care Shake Cutter Name Role Phone Reggie Eddy Primary Care Provid er Reason for Visit * Auth/Cert Specialty Diagnoses / Procedures Referred By Jordyn cano Referred To Contact Diagnoses Anemia Shock (HCC) Anemia Referral ID Status Reason Start Date Expiration Date Visits Re quested Visits Authorized [id number] Encounter Details Date Type Department Care Team Description 12/21/2022 Hospital Encounter Cardiac Studies [facility] [address] [place] [address] Allergies Active Allergy Reactions Severity Noted Date Comments Hydromorphone Hcl Itching Medium 11/09/2015 Environmental Low 05/04/2010 Pollen -asthmatic attacks documented as of this encounter (statuses as of 12/22/2022) Medications Medication Sig Dispensed Refills Start Date [...] Suspended Additional Information Patient taking differently:3 mL [id number] PRN, Dyspnea, Reported on 12/21/2022 Mycophenolate Mofetil [...] as of this encounter (statuses as of 12/22/2022) Active Problems Problem Noted Date Shock 12/21/2022 Pleural effusion 12/21/2022 Acute pulmonary [...] typical SLE sx- negative/normal C3/C4, SSA/SSB, centromere, PAVING CONTRACTOR/Sm, ESR,CRP. dsDNA borderline. [place] unlikely SLE. o 2012: Seen again by Rheum- Dr. Jung- photosensitive rash and raynauds. Borderline dsDNA. [place] likely SLE, though possible AIH could explain (+) MARY. HCQ discussed but wanted to avoid by GI. o [id number]: multiple hospitalizations for ascites; returned to Rheum [...] as of this encounter (statuses as of 12/22/2022) Resolved Problems Problem Noted Date Resolved Date [...] as of this encounter (statuses as of 12/22/2022) Immunizations Name Administration Dates Next Due HEP [...] No 12/21/2022 documented as of this encounter Plan of Treatment Upcoming Encounters Date Type Specialty Care Team Description 01/04/2023 Telemedicine Endocrinology Gilbert Hawkins MD [address] [place] [address] 01/09/2023 Office Visit Ophthalmology Fran French DO [address] [place] [address] 03/16/2023 Office Visit Pulmonary Twin Hayden MD [address] [place] [address] Scheduled Procedures Name Priority Associated Diagnoses Date/Ti [...] Comments DISCUSS TOBACCO CESSATION (REFER TO SMARTSET #9528) 1965 COVID-19 Vaccine (#1) 1970 Alpha-1 Antitrypsin [...] exists Influenza Vaccine (FLU shot) (#1) 2022 O2 ASSESSMENT COMPLETED IN PAST YEAR FOR COPD 05/11/2023 05/11/2022 Mammogram 06/21/2023 06/20/2022, 04/11, 04/30/2019, Additional history exists TSH 12/22/2023 12/21/2022, 03/11, 01/29/2021, Additional history exists Lipid Panel 02/29/2024 02/28/2019, 11/08, 10/08/2012, Additional history exists DTaP,Tdap,and Td Vaccines (2 - Td or Tdap) 08/18/2024 08/18/2014 COLONOSCOPY-EVERY 3 YRS AGES 18-100 05/11/2025 05/11/2022, 05/11/2022, 05/10/2016, Additional history exists Hepatitis B Completed 09/15/2015, 12/09, 10/08/2012 COLONOSCOPY-EVERY 5 YRS AGES 18-100 Discontinued 05/11/2022, 05/11/2022, 05/10/2016, Additional history exists GARDASIL-HPV IMMUNIZATION SERIES Aged Out No longer eligible based on patient's age to complete this topic MENINGOCOCCAL (MENACTRA/MENVEO) Aged Out No longer eligible based on patient's age to complete this topic documented as of this encounter Medical Devices Implanted Type Area Bookkeeping Manager Device Identifier Shelf Expiration Date Model / Serial / Lot Lens 22.0 Sa60 - [id number] Implanted:Qty: 1 on 10/15/2012 at OR [facility] Left: Eye [employer] 10/07/2016 SA60AT / [id number] / Lens 22.0 Sa60at - [id number] Implanted:Qty: 1 on 11/29/2012 at [place] [facility] Right: Eye [employer] 03/31/2017 SA60AT / [id number] / Duraclip 11mm Repositionable - [id number] Implanted:Qty: 1 on 05/11/2022 by Jeffrey Weber MD at ENDOSCOPY [facility] [employer] [id number] 01/29/2024 [id number] / / [id number] documented as of this encounter Procedures Procedure Name Priority Date/Time Associated Diagnosis Comments ECHO, COMPLETE (2D), TRANS-THORACIC Routine 12/21/2022 1:30 PM EDT Shock (HCC) documented in this encounter Results * ECHO, COMPLETE (2D), TRANS-THORACIC (12/21/2022 1:30 PM EDT) LEFT VENTRICULAR EJECTION FRACTION 55 % [facility] 12/21/2022 12:3 7 PM EDT Cristi Clay PA-C [facility] documented in this encounter Advance Directives Latest [...] the patient have Health Care Power of Farm Appraiser? No Full Code 12/06/2019 4:21 AM 12/11/2019 5:39 PM This o rder reflects the patients wishes and were consensually agreed upon. Question Answer Comments Discussion of Advance Directives occurred with: Patient Care Teams Shake Cutter Relationship Specialty Start Date End Date Reggie Eddy, DO [place], [place] [phone] PCP - General Internal Medicine 03/08/22 documented as of this encounter
--- OUTSIDE RECORDS SUMMARY | 2023-03-19 22:31 | External Medical Summary ---
Author Name Unknown Address Unknown Organization K01:LABORATORY C - [address] [place] [address] Laboratory Report Ordering Provider Test Date Status VILMA HERNANDEZ 12/22/2022 04:37:00 Final Observation Date Value Abnormality Reference (Units ) Status Albumin 12/22/2022 04:37:00 3.0 Below low normal 3.8-5.0 (g/dL) Final AST (Aspartate aminotransferase) 12/22/2022 04:37:00 10 10-35 (U/L) Final Alk Phos 12/22/2022 04:37:00 71 35-130 (U/L) Final ALT (Alanine aminotransferase) 12/22/2022 04:37:00 8 Below low normal 10-35 (U/L) Final Bilirubin, Total 12/22/2022 04:37:00 0.7 <=1.2 (mg/dL) Final Bilirubin, Direct 12/22/2022 04:37:00 0.3 0.0-0.3 (mg/dL) Final Protein 12/22/2022 04:37:00 6.3 6.0-8.3 (g/dL) Final Performing Location LABORATORY C - [address] [place] [address]
--- OUTSIDE RECORDS SUMMARY | 2023-03-19 22:31 | External Medical Summary ---
Author Name Unknown Address Unknown Organization [id number]:LABORATORY [facility] [place] - [address] [facility] [address] Laboratory Report Ordering Provider Test Date Status ESEQUIEL HERNANDEZ 12/27/2022 07:55:00 Final Observation Date Value Abnormality Reference (Units ) Status BUN 12/27/2022 07:55:00 4 Below low normal 6-20 (mg/dL) Final Creatinine 12/27/2022 07:55:00 0.7 0.5-1.0 (mg/dL) Final Glomerular filtration rate/1.73 sq M.predicted [Volume Rate/Area] in Serum, Plasma or Blood by Creatinine-based formula (CKD-EPI) 12/27/2022 07:55:00 >90 >=60 (mL/min) Final eGFR is calculated based on the CKD-EPI 2020 equation SODIUM 12/27/2022 07:55:00 137 135-146 (m mol/L) Final Potassium 12/27/2022 07:55:00 4.3 3.5-5.1 (m mol/L) Final Cl 12/27/2022 07:55:00 103 98-107 (mm ol/L) Final CO2 12/27/2022 07:55:00 27 22-32 (mmo l/L) Final Anion gap 12/27/2022 07:55:00 7 7-15 (mmol /L) Final Glucose 12/27/2022 07:55:00 94 70-120 (mg /dL) Final Calcium 12/27/2022 07:55:00 8.4 8.4-10.2 ( mg/dL) Final Performing Location LABORATORY [facility] [place] - [address] [facility] [address]
--- OUTSIDE RECORDS SUMMARY | 2023-03-19 22:31 | External Medical Summary ---
Author Name Unknown Address Unknown Organization K01:LABORATORY [facility] - [address] [place] [address] Laboratory Report Ordering Provider Test Date Status NANO ALFARO 12/28/2022 08:46:00 Final Exclude Heart Failure: <300 pg/mL
Diagnose Heart Failure:
Age <50 yr: >450 pg/mL
50-75 yr: >900 pg/mL
>75 yr: >1800 pg/mL
GFR is 30-59 mL/min: >1200 pg/mL or Age- adjusted values
GFR <30 mL/min: do not use, not reliable

Prognostic threshold: 1000 pg/mL Observation Date Value Abnormality Reference (Units ) Status BNP, Pro-hormone 12/28/2022 08:46:00 336 Above high no rmal <300 (pg/mL) Final Performing Location LABORATORY [facility] - [facility] [address] [place] [address]
--- OUTSIDE RECORDS SUMMARY | 2023-03-19 22:31 | External Medical Summary ---
Author Name Unknown Address Unknown Organization K01:LABORATORY C - [address] [place] [address] Laboratory Report Ordering Provider Test Date Status ALISIA ADAMS 12/26/2022 07:23:00 Final Observation Date Value Abnormality Reference (Units ) Status Phosphate 12/26/2022 07:23:00 3.1 2.5-4.8 (m g/dL) Final Performing Location [facility] - [address] [facility] [address]
--- OUTSIDE RECORDS SUMMARY | 2023-03-19 22:31 | External Medical Summary ---
Author Name Unknown Address Unknown Organization K01:LABORATORY [facility] [place] - [address] [facility] [address] Laboratory Report Ordering Provider Test Date Status NANO ALFARO 12/28/2022 08:46:00 Final Observation Date Value Abnormality Reference (Units ) Status Magnesium 12/28/2022 08:46:00 1.7 1.5-2.6 (m g/dL) Final Performing Location LAB[facility] - [address] [facility] [address]
--- OUTSIDE RECORDS SUMMARY | 2023-03-19 22:31 | External Medical Summary ---
Author Name Unknown Address Unknown Organization K01:LABORATORY [facility] - [address] [place] [address] Laboratory Report Ordering Provider Test Date Status VILMA HERNANDEZ 12/22/2022 12:46:00 Final Observation Date Value Abnormality Reference (Units ) Status DIRECT CYNTHIA 12/22/2022 12:46:00 Negative Final Performing Location LAB[facility]ATORY [facility] - [address] [place] [address]
--- OUTSIDE RECORDS SUMMARY | 2023-03-19 22:31 | External Medical Summary ---
Author Name Unknown Address Unknown Organization K01:LABORATORY [facility] [place] - [address] [facility] [address] Laboratory Report Ordering Provider Test Date Status VILMA HERNANDEZ 12/22/2022 04:37:00 Final Observation Date Value Abnormality Reference (Units ) Status BUN 12/22/2022 04:37:00 20 6-20 (mg/dL) Final Creatinine 12/22/2022 04:37:00 1.0 0.5-1.0 (mg/dL) Final Glomerular filtration rate/1.73 sq M.predicted [Volume Rate/Area] in Serum, Plasma or Blood by Creatinine-based formula (CKD-EPI) 12/22/2022 04:37:00 63 >=60 (mL/min) Final eGFR is calculated based on the CKD-EPI 2020 equation SODIUM 12/22/2022 04:37:00 136 135-146 (m mol/L) Final Potassium 12/22/2022 04:37:00 3.5 3.5-5.1 (m mol/L) Final Cl 12/22/2022 04:37:00 99 98-107 (mm ol/L) Final CO2 12/22/2022 04:37:00 27 22-32 (mmo l/L) Final Anion gap 12/22/2022 04:37:00 10 7-15 (mmol /L) Final Glucose 12/22/2022 04:37:00 157 Above high normal 70 -120 (mg/dL) Final Calcium 12/22/2022 04:37:00 8.2 Below low normal 8.4 -10.2 (mg/dL) Final Performing Location LABORATORY [facility] [place] - [address] [facility] [address]
--- OUTSIDE RECORDS SUMMARY | 2023-03-19 22:31 | External Medical Summary ---
Author Name Unknown Address Unknown Organization K01:[facility] [place] [address] [facility] [address] Laboratory Report Ordering Provider Test Date Status ALISIA ADAMS 12/25/2022 08:36:00 Final Observation Date Value Abnormality Reference (Units ) Status BUN 12/25/2022 08:36:00 6 6-20 (mg/dL) Final Creatinine 12/25/2022 08:36:00 0.8 0.5-1.0 (mg/dL) Final Glomerular filtration rate/1.73 sq M.predicted [Volume Rate/Area] in Serum, Plasma or Blood by Creatinine-based formula (CKD-EPI) 12/25/2022 08:36:00 89 >=60 (mL/min) Final eGFR is calculated based on the CKD-EPI 2020 equation SODIUM 12/25/2022 08:36:00 136 135-146 (m mol/L) Final Potassium 12/25/2022 08:36:00 2.7 Below low normal 3.5 -5.1 (mmol/L) Final Cl 12/25/2022 08:36:00 95 Below low normal 98- 107 (mmol/L) Final CO2 12/25/2022 08:36:00 30 22-32 (mmo l/L) Final Anion gap 12/25/2022 08:36:00 11 7-15 (mmol /L) Final Glucose 12/25/2022 08:36:00 139 Above high normal 70 -120 (mg/dL) Final Calcium 12/25/2022 08:36:00 7.5 Below low normal 8.4 -10.2 (mg/dL) Final Performing Location [facility] [place] [address] [facility] [address]
[2023-03-19] MEDS ORDERED: ALBUTEROL HFA 8 GM INHALER INH PRN (22:32)
[2023-03-19] MEDS ORDERED: traMADol HCL 50 MG TABLET PO PRN (22:32)
[2023-03-19] MEDS ORDERED: ACETAMINOPHEN 1,000 MG/100 ML VIAL IV PRN (22:32)
[2023-03-19] MEDS ORDERED: ONDANSETRON INJ 2 MG/ML 2 ML VIAL IV PRN (22:32)
--- OUTSIDE RECORDS SUMMARY | 2023-03-19 22:32 | External Medical Summary ---
Author Name Unknown Address Unknown Organization K01:LABORATORY [facility] - [address] [facility] [address] Laboratory Report Ordering Provider Test Date Status MELIDAROBERTO 12/21/2022 04:33:00 Final Observation Date Value Abnormality Reference (Units ) Status Phosphate 12/21/2022 04:33:00 3.4 2.5-4.8 (m g/dL) Final Performing Location LAB[facility] - [address] [facility] [address]
--- OUTSIDE RECORDS SUMMARY | 2023-03-19 22:32 | External Medical Summary ---
Author Name Unknown Address Unknown Organization K01:LABORATORY [facility] [place] - [facility] [address] [facility] [address] Laboratory Report Ordering Provider Test Date Status ROBERTO MONTEZ 12/21/2022 04:33:00 Final Observation Date Value Abnormality Reference (Units ) Status WBC, Total 12/21/2022 04:33:00 10.82 Above high normal 4.00-10.80 (K/uL) Final RBC 12/21/2022 04:33:00 3.39 3.85-5.15 (M/uL) Final Hemoglobin 12/21/2022 04:33:00 7.2 Below low normal 12.0-15.3 (g/dL) Final HCT 12/21/2022 04:33:00 25.3 Below low normal 36.0-45.2 (%) Final MCV 12/21/2022 04:33:00 74.6 81.5-97.5 (fL) Final MCH 12/21/2022 04:33:00 21.2 27.0-34.0 (pg) Final MCHC 12/21/2022 04:33:00 28.5 32.0-36.0 (g/dL) Final RDW 12/21/2022 04:33:00 22.1 11.5-15.5 (%) Final Platelets 12/21/2022 04:33:00 192 140-400 (K/uL) Final MPV 12/21/2022 04:33:00 10.9 6.6-11.1 (fL) Final Nucleated erythrocytes/100 leukocytes [Ratio] in Blood by Automated count 12/21/2022 04:33:00 1 Above high normal <=0 (/100 WBCs) Final Performing Location LABORATORY [facility] [place] - [address] [facility] [address]
--- OUTSIDE RECORDS SUMMARY | 2023-03-19 22:32 | External Medical Summary | Summary of Care ---
Author Name Unknown Organization [facility] Address [address] [place] [address] Phone [phone] Care Team Providers Care Fuel System Maintenance Supervisor Name Role Phone Reggie Wei DO Primary Care Provid er Reason for Visit * Reason Onset Date Comments Medication Refill 12/19/2022 Encounter Details Date Type Department Care Team Description 12/19/[address] [phone] Reggie Wei DO [address] [place] [id number] MEDICATION USE AGREEMENT; DDD (degenerative disc disease), cervical; DDD (degenerative disc disease), thoracic; DDD (degenerative disc disease), lumbar Allergies Active Allergy Reactions Severity Noted Date Comments Hydromorphone Hcl Itching Medium 11/09/2015 Environmental Low 05/04/2010 Pollen -asthmatic attacks documented as of this encounter (statuses as of 12/20/2022) Medications Medication Sig Dispensed Refills Start Date End Date Status Ascorbic Acid (VITAMIN C-CORWIN HIPS) 1000 MG TABS Take 1 Tablet by mouth in the morning. 0 Active Ferrous Sulfate 325 (65 Fe) MG Oral Tablet (Feosol) Take 1 Tab by mouth 2 times a day. 60 Tab 11 06/13/2020 Active Nebulizer Device For use with duoneb treatment 1 Each 0 06/13/2020 Active oxygen IN GAS 3 liters/min at rest and at night and 5 liters/min on activity 1 Each 0 06/14/2020 Active Additional Information Patient taking differently: 3 liters/min [...] A DAY 2838 mL 5 05/10/2021 Active Magnesium Chloride 64 MG Oral Tablet Delayed [...] OR EYES. 30 Tablet 5 09/08/2022 Active Tadalafil (PAH) 20 MG Oral Tablet Take 2 Tablets by mouth in the morning. 60 Tablet 9 09/08/2022 Active Torsemide 20 MG Oral Tablet [...] before bedtime. 3600 mL 11 09/09/2022 Active Mycophenolate Mofetil 500 MG Oral Tablet (Cellcept)Indicatio [...] EVERY DAY 135 Tablet 1 09/25/2022 Active traZODone HCl 50 MG Oral Tablet [...] IN THE MORNING 90 Tablet 11/23/2022 Active traMADol HCl 50 MG Oral Tablet (Ultram)Indications :MEDICATION USE AGREEMENT,DDD (degenerative disc disease), cervical,DDD (degenerative disc disease), thoracic,DDD (degenerative disc disease), lumbar Take 2 Tablets by mouth every 6 hours as needed for Pain, Moderate. 240 Tablet 0 12/20/2022 Active traMADol HCl 50 MG Oral Tablet (Ultram)Indications :MEDICATION USE AGREEMENT,DDD (degenerative disc disease), cervical,DDD (degenerative disc disease), thoracic,DDD (degenerative disc disease), lumbar Take 2 Tablets by mouth every 6 hours as needed for Pain, Moderate. 240 Tablet 0 11/23/2022 12/20/19 23 Discontinu ed(Refill) documented as of this encounter (statuses as of 12/20/2022) Active Problems Problem Noted Date Immunodeficiency 12/20/2022 Other cirrhosis of liver 03/16/2022 [...] typical SLE sx- negative/normal C3/C4, SSA/SSB, centromere, [employer]/Sm, ESR,CRP. dsDNA borderline. [place] unlikely SLE. o 2012: Seen again by Rheum- Dr. Jung- photosensitive rash and raynauds. Borderline dsDNA. [place] likely SLE, though possible AIH could explain (+) MARY. HCQ discussed but wanted to avoid by GI. 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 Serologic abnormality 07/05/2010 Esophageal reflux 05/19/2010 Postoperative hypothyroidism 01/23/2002 HISTORY OF TOBACCO USE 01/23/2002 Autoimmune hepatitis documented as of this encounter (statuses as of 12/20/2022) Resolved Problems Problem Noted Date Resolved Date Rhinovirus infection 06/08/2020 03/16/2022 Oliguria 12/23/2019 12/26/2019 UTI (urinary tract infection) 12/07/2019 Delirium 12/07/2019 12/08/2019 Hypophosphatemia 12/07/2019 03/16/2022 Hypokalemia 12/06/2019 12/08/2019 Hypocalcemia 12/06/2019 03/16/2022 Compensated metabolic alkalosis 12/06/2019 12/08/2019 Acute cystitis without hematuria 12/06/2019 12/08/2019 Numbness and tingling of both legs 08/15/2019 12/08/2019 Numbness and tingling in both hands 08/15/2019 12/08/2019 Influenza A 06/17/2015 05/31/2018 Acute respiratory failure with hypoxia 6 06/21/2020 Rotator cuff syndrome 08/07/2014 05/31/2018 ADVANCE DIRECTIVE INFORMATION 05/06/2013 Overview: No, Advance Directive brochure given to patient. 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 07/05/2010 12/17/2012 Overview: ICD-10 update of inactive term Cirrhosis 03/16/2022 documented as of this encounter (statuses as of 12/20/2022) Immunizations Name Administration Dates Next Due HEP A - Hepatitis A (Adult > 18 yrs) 09/15/2015 HEP B - Hepatitis B (Dialysis/Immumocomp Pt) HepA Inact/HepB Recomb>=18yrs old 10/08/2012 Hepatitis B, 20+ yrs 09/15/2015 PPD 09/28/2010,09/07/2010 Pneumococcal Polysaccharide PPV23 (Pneumovax) TDAP (age 10 and older)(Boostrix) 08/18/2014 documented as of this encounter Social History Tobacco Use Types Packs/Day Years Used Date Smoking Tobacco: Former Cigarettes 0.5 25 Q uit: 06/09/2020 Smokeless Tobacco: Never Comments:5-6 a day Alcohol [...] you have serious difficulty h earing? No 12/23/2019 Are you blind or do you have serious difficulty seeing, even when wearing glasses? No 12/23/2019 Do you have serious difficul ty walking or climbing stairs? (5 years old or older) No 06/09/2020 Do you have difficulty dress ing or bathing? (5 years old or older) No 12/23/2019 Because of a physical, menta l, or emotional condition, do you have difficulty doing errands alone such as visiting a doctor s office or shopping? (15 years old or older) No 12/23/19 20 Cognitive Status Response Date of Assessm ent Because of a physical, menta l, or emotional condition, do you have serious difficulty concentrating, remembering, or making decisions? (5 years old or older No 12/23/2019 documented as of this encounter Miscellaneous Notes * Telephone Encounter - Reggie Wei DO - 12/20/2022 3:37 PM EDT Signed Prescriptions: Disp Refills traMADol HCl 50 MG Oral Tablet (Ultram) 240 Ta*0 Sig: Take 2 Tablets by mouth every 6 hours as needed for Pain, Moderate. Authorizing Provider: REGGIE WEI * Telephone Encounter - Vira Herman [facility] - 12/20/2022 1:50 PM EDTPending Prescriptions: Disp Refills traMADol HCl 50 MG Oral Tablet (Ultram) 240 Ta*0 Sig: Take 2 Tablets by mouth every 6 hours as needed for Pain, Moderate. * Telephone Encounter - Vira Herman [facility] - 12/20/2022 1:49 PM EDT I have reviewed the patients controlled substance dispensing history in the Prescription Drug Monitoring Program in compliance with the [facility] regulations before prescribing a controlled substance. PDMP checked on 12/20/2022. Pending Prescriptions: Disp Refills traMADol HCl 50 MG Oral Tablet (Ultram) 240 Ta*0 Sig: Take 2 Tablets by mouth every 6 hours as needed for Pain, Moderate. Last Visit: 10/04/2022 (in office), Visit date not found (telemedicine) Next Visit: 12/20/2022 Date medication was last filled: 11/24/2022 Date medication is due for refill: 12/23/2022 Pharmacy: [id number] [id number] Is this request for a [...] in Results Review. Please approve if appropriate. Thank you, Vira Herman [facility] Clinical Pharmacist Centralized Clinical Pharmacy Services (CCPS) (formerly Telepharmacy) 12/20/22 1:49 PM [phone] documented in this encounter Plan of Treatment Upcoming Encounters Date Type Specialty Care Team Description 01/04/2023 Telemedicine Endocrinology Gilbert Hawkins MD [address] [place] [address] 01/09/2023 Office Visit Ophthalmology Fran French DO [address] [place] [address] 03/16/2023 Office Visit Pulmonary Twin Hayden MD [address] [place] [address] Scheduled Procedures Name Priority Associated Diagnoses Date/Ti me ESOPHAGOGASTRODUODENOSCOPY ( EGD), FLEXIBLE, TRANSORAL, DIAGNOSTIC Recall Jones's esophagus Family history of colon cancer Rectal varices COLONOSCOPY FLEXIBLE PROXIMAL DIAGNOSTIC Recall Jones's esophagus Family history of [...] exists Influenza Vaccine (FLU shot) (#1) 2022 TSH 04/01/2023 04/01/2022, 01/09, 06/10/2020, Additional history exists O2 ASSESSMENT COMPLETED IN PAST YEAR FOR COPD 05/11/2023 05/11/2022 Mammogram 06/21/2023 06/20/2022, 04/11, 04/30/2019, Additional history exists Lipid Panel 02/29/2024 02/28/2019, [...] this encounter Medical Devices Implanted Type Area Supervisor Of Instruction Device Identifier Shelf Expiration Date Model / Serial / Lot Lens 22.0 Sa60at - [id number] Implanted:Qty: 1 on 10/15/2012 at OR [facility] Left: Eye [employer] 10/07/2016 SA60AT / [id number] / Lens 22.0 Sa60at - [id number] Implanted:Qty: 1 on 11/29/2012 at OR [facility] Right: Eye [employer] 03/31/2017 SA60AT / [id number] / Duraclip 11mm Repositionable - [id number] Implanted:Qty: 1 on 05/11/2022 by Jeffrey Weber MD at ENDOSCOPY [facility] [employer] [id number] 01/29/2024 [id number] / / [id number] documented as of this encounter Visit [...] of Advance Directives occurred with: Not Discussed Code Status History Code Status Date Activated Date Inactivated Comments Full Code 06/08/2020 10:24 PM 06/14/2020 7:33 [...] the patient have Health Care Power of Concrete Block Mason? No Full Code 12/06/2019 4:21 AM 12/11/2019 5:39 PM This o rder reflects the patients wishes and were consensually agreed upon. Question Answer Comments Discussion of Advance Directives occurred with: Patient Full Code 06/17/2015 12:58 AM 06/22/2015 8:00 PM This order reflects the patients wishes and were consensually agreed upon. Question Answer Comments Discussion of Advance Directives occurred with: Patient Does the patient have a Living Will? No Does the patient have Health Care Power of Concrete Block Mason? No Care Teams Fuel System Maintenance Supervisor Relationship Specialty Start Date End Date Reggie Wei, DO [address] [place] [phone] PCP - General Internal Medicine 03/08/22 documented as of this encounter
--- OUTSIDE RECORDS SUMMARY | 2023-03-19 22:32 | External Medical Summary ---
Author Name Unknown Address Unknown Organization K01:LABORATORY [facility] [facility] - [address] [place] [address] Laboratory Report Ordering Provider Test Date Status REJI FELIZ JR 12/20/2022 21:43:04 Final Observation Date Value Abnormality Reference (Units ) Status ABO 12/20/2022 21:43:04 AB Final RH 12/20/2022 21:43:04 Positive Final RED BLOOD CELL ANTIBODY SCREEN 12/20/2022 21:43:04 Negative Final SPECIMEN EXPIRATION DATE 12/20/2022 21:43:04 12/23/2022 23:59 Final Performing Location LABORATORY [facility] - [address] [place] [address]
--- OUTSIDE RECORDS SUMMARY | 2023-03-19 22:32 | External Medical Summary ---
Author Name Unknown Address Unknown Organization K01:LABORATORY [facility] [place] - [facility] [address] [place] [place] [address] Laboratory Report Ordering Provider Test Date Status ROBERTO MONTEZ 12/21/2022 01:25:00 Final Warfarin Therapy
INR: 2 .0-3.0 conventional anticoagulation
INR: 2.5- 3.5 high intensity anticoagulation Observation Date Value Abnormality Reference (Units ) Status PT 12/21/2022 01:25:00 15.8 Above high normal 11 .6-15.2 (seconds) Final INR 12/21/2022 01:25:00 1.2 0.8-1.2 Final Performing Location LABORATORY [facility] - [address] [place], [place] [address]
--- OUTSIDE RECORDS SUMMARY | 2023-03-19 22:32 | External Medical Summary ---
Author Name Unknown Address Unknown Organization K01:LABORATORY C - [address] [facility] [address] Laboratory Report Ordering Provider Test Date Status MELIDAROBERTO SONG 12/21/2022 11:32:00 Final Observation Date Value Abnormality Reference (Units ) Status Phosphate 12/21/2022 11:32:00 3.0 2.5-4.8 (m g/dL) Final Performing Location [facility] - [address] [facility] [address]
--- OUTSIDE RECORDS SUMMARY | 2023-03-19 22:32 | External Medical Summary ---
Author Name Unknown Address Unknown Organization K01:LABORATORY [facility] [place] - [address] [address] Laboratory Report Ordering Provider Test Date Status SHIN HERNANDEZThao 12/21/2022 11:32:00 Final Observation Date Value Abnormality Reference (Units ) Status TSH 12/21/2022 11:32:00 0.09 Below low normal 0.2 7-4.20 (uIU/mL) Final Performing Location LABORATORY [facility] - [address] [place] [address]
--- OUTSIDE RECORDS SUMMARY | 2023-03-19 22:32 | External Medical Summary ---
Author Name Unknown Address Unknown Organization K01:LABORATORY C - [address] [facility] [address] Laboratory Report Ordering Provider Test Date Status ROBERTO MONTEZ 12/21/2022 01:25:00 Final Observation Date Value Abnormality Reference (Units ) Status BRIAN 12/21/2022 01:25:00 43 26-192 (U/ L) Final Performing Location [facility] - [address] [facility] [address]
--- OUTSIDE RECORDS SUMMARY | 2023-03-19 22:32 | External Medical Summary ---
Author Name Unknown Address Unknown Organization K01:LABORATORY [facility] - [address] [place] [address] Laboratory Report Ordering Provider Test Date Status SULLY JENNINGS 12/21/2022 04:33:00 Final Observation Date Value Abnormality Reference (Units ) Status Cortisol 12/21/2022 04:33:00 7.0 2.5-19.5 ( ug/dL) Final AM Reference Range: 4.8 - 19 .5 ug/dL
PM Reference Range: 2.5 - 11.9 ug/dL Performing Location LABORATORY [facility] - [address] [place] [address]
--- OUTSIDE RECORDS SUMMARY | 2023-03-19 22:32 | External Medical Summary ---
Author Name Unknown Address Unknown Organization K01:LABORATORY [facility] [place] - [address] [place] [address] Laboratory Report Ordering Provider Test Date Status ROBERTO MONTEZ 12/21/2022 01:25:00 Final Observation Date Value Abnormality Reference (Units ) Status Calcium.ionized [Moles/volume] in Blood by Ion-selective membrane electrode (ISE) 12/21/2022 01:25:00 1.08 Below low normal 1.13-1.32 (mmol/L) Final Performing Location LABORATORY [facility] - [address] [place] [address]
--- OUTSIDE RECORDS SUMMARY | 2023-03-19 22:32 | External Medical Summary ---
Author Name Unknown Address Unknown Organization K01:LABORATORY [facility] [place] - [address] [facility] [address] Laboratory Report Ordering Provider Test Date Status ROBERTO MONTEZ 12/21/2022 02:16:51 Final Observation Date Value Abnormality Reference (Units ) Status Methicillin resistant Staphylococcus aureus (MRSA) DNA [Presence] in Nose by EVELIO with probe detection 12/21/2022 02:16:51 Negative Negative Final No Methicillin resistant Sta phylococcus aureus detected by PCR (amplified probe). Performing Location [facility] - [address] [facility] [address]
--- OUTSIDE RECORDS SUMMARY | 2023-03-19 22:32 | External Medical Summary ---
Author Name Unknown Address Unknown Organization [id number]:LABORATORY [facility] – [place] - [address] [place] [address] Laboratory Report Ordering Provider Test Date Status ROBERTO MONTEZ 12/21/2022 01:25:00 Final Exclude Heart Failure: <300 pg/mL
Diagnose Heart Failure:
Age <50 yr: >450 pg/mL
50-75 yr: >900 pg/mL
>75 yr: >1800 pg/mL
GFR is 30-59 mL/min: >1200 pg/mL or Age- adjusted values
GFR <30 mL/min: do not use, not reliable

Prognostic threshold: 1000 pg/mL Observation Date Value Abnormality Reference (Units ) Status BNP, Pro-hormone 12/21/2022 01:25:00 2671 Above high no rmal <300 (pg/mL) Final Performing Location LABORATORY [facility] [place] - [facility] [address] [place] [address]
--- OUTSIDE RECORDS SUMMARY | 2023-03-19 22:32 | External Medical Summary ---
Author Name Unknown Address Unknown Organization [id number]:[place]ORY [facility] [place] [address] [place] [id number] Laboratory Report Ordering Provider Test Date Status ROBERTO MONTEZ 12/21/2022 06:15:51 Final Observation Date Value Abnormality Reference (Units) Status Bacteria identified in Specimen by Culture 12/21/2022 06:15:51 No significant growth Final Test: Culture, Urine, Quanti tative
Specimen Source: Urine, Catheter
Specimen Type: Urine
Specimen Date: 12/21/2022 6:15 AM
Result Date: 12/22/2022 8:47 AM
Result Status: Final result
Resulting Lab: [facility]ATORY [facility] [place]
[address]
[place] [id number]

CULTURE

No significant growth

null Performing Location LABORATORY [facility] [place] - [address] [facility] [address]
--- OUTSIDE RECORDS SUMMARY | 2023-03-19 22:32 | External Medical Summary ---
Author Name Unknown Address Unknown Organization [id number]:LABORATORY [facility] – [place] - [facility] [address] [facility] [address] Laboratory Report Ordering Provider Test Date Status ROBERTO MONTEZ 12/21/2022 02:41:00 Final Observation Date Value Abnormality Reference (Units ) Status WBC, Total 12/21/2022 02:41:00 10.50 4.00-10.80 (K/uL) Final RBC 12/21/2022 02:41:00 3.55 3.85-5.15 (M/uL) Final Hemoglobin 12/21/2022 02:41:00 7.6 Below low normal 12.0-15.3 (g/dL) Final HCT 12/21/2022 02:41:00 26.4 Below low normal 36.0-45.2 (%) Final MCV 12/21/2022 02:41:00 74.4 81.5-97.5 (fL) Final MCH 12/21/2022 02:41:00 21.4 27.0-34.0 (pg) Final MCHC 12/21/2022 02:41:00 28.8 32.0-36.0 (g/dL) Final RDW 12/21/2022 02:41:00 21.9 11.5-15.5 (%) Final Platelets 12/21/2022 02:41:00 197 140-400 (K/uL) Final MPV 12/21/2022 02:41:00 11.3 6.6-11.1 (fL) Final Nucleated erythrocytes/100 leukocytes [Ratio] in Blood by Automated count 12/21/2022 02:41:00 0 <=0 (/100 WBCs) Final Performing Location LABORATORY [facility] – [place] - [address] [facility] [address]
--- OUTSIDE RECORDS SUMMARY | 2023-03-19 22:32 | External Medical Summary ---
Author Name Unknown Address Unknown Organization [id number]:[place]ORY [facility] [place] - [address] [place] [address] Laboratory Report Ordering Provider Test Date Status ROBERTO MONTEZ 12/21/2022 01:25:00 Final Observation Date Value Abnormality Reference (Units ) Status Troponin T 12/21/2022 01:25:00 16 Above high normal < =14 (ng/L) Final Performing Location LABORATORY [facility] - [address] [place] [address]
--- OUTSIDE RECORDS SUMMARY | 2023-03-19 22:32 | External Medical Summary ---
Author Name Unknown Address Unknown Organization K01:LABORATORY [facility] [place] - [facility] [address] [facility] [address] Laboratory Report Ordering Provider Test Date Status ROBERTO MONTEZ 12/21/2022 04:33:00 Final Observation Date Value Abnormality Reference (Units ) Status BUN 12/21/2022 04:33:00 29 Above high normal 6-20 (mg/dL) Final Creatinine 12/21/2022 04:33:00 2.0 Above high normal 0.5-1.0 (mg/dL) Final Glomerular filtration rate/1.73 sq M.predicted [Volume Rate/Area] in Serum, Plasma or Blood by Creatinine-based formula (CKD-EPI) 12/21/2022 04:33:00 29 Below low normal >=60 (mL/min) Final eGFR is calculated based on the CKD-EPI 2020 equation SODIUM 12/21/2022 04:33:00 133 Below low normal 135 -146 (mmol/L) Final Potassium 12/21/2022 04:33:00 3.5 3.5-5.1 (m mol/L) Final Cl 12/21/2022 04:33:00 97 Below low normal 98- 107 (mmol/L) Final CO2 12/21/2022 04:33:00 21 Below low normal 22- 32 (mmol/L) Final Anion gap 12/21/2022 04:33:00 15 7-15 (mmol /L) Final Glucose 12/21/2022 04:33:00 114 70-120 (mg /dL) Final Calcium 12/21/2022 04:33:00 7.7 Below low normal 8.4 -10.2 (mg/dL) Final Performing Location LABORATORY [facility] [place] - [address] [facility] [address]
--- OUTSIDE RECORDS SUMMARY | 2023-03-19 22:32 | External Medical Summary ---
Author Name Unknown Address Unknown Organization K01:[place]ORY [facility] [place] [address] [place] [address] Laboratory Report Ordering Provider Test Date Status MARYSHINA 12/21/2022 11:32:00 Final Observation Date Value Abnormality Reference (Units ) Status Schistocytes 12/21/2022 11:32:00 Moderate Abnormal None Se en Final Performing Location LABORATORY [facility] - [address] [place] [address]
--- OUTSIDE RECORDS SUMMARY | 2023-03-19 22:32 | External Medical Summary ---
Author Name Unknown Address Unknown Organization [id number]:LABORATORY [facility] [place] [facility] - [address] [place] [address] Laboratory Report Ordering Provider Test Date Status REJI FELIZ JR 12/20/2022 21:43:04 Final Observation Date Value Abnormality Reference (Units ) Status ABO 12/20/2022 21:43:04 AB Final RH 12/20/2022 21:43:04 Positive Final Performing Location LABORATORY [facility] [place] [facility] - [address] [place] [address]
--- OUTSIDE RECORDS SUMMARY | 2023-03-19 22:32 | External Medical Summary | Summary of Care ---
Author Name Unknown Organization [facility] Address [address] [place] [address] Phone [phone] Care Team Providers Care Enterprise Resource Analyst Name Role Phone Reggie Eddy Primary Care Provid er Reason for Visit * Reason Comments Multiple Complaints * Auth/Cert Specialty Diagnoses / Procedures Referred By Jordyn cano Referred To Contact Diagnoses r/o neurologic deficits Referral ID Status Reason Start Date Expiration Date Visits Re quested Visits Authorized [id number] Encounter Details Date Type Department Care Team Description 12/20/2022 Emergency [facility] [address] [place], [place] [id number] Silvio Chow [address] [place], [place] [id number] Anemia, unspecified type (Primary Dx); Sepsis (HCC); Septic shock (HCC) Allergies Active Allergy Reactions Severity Noted Date Comments Hydromorphone Hcl Itching Medium 11/09/2015 Environmental Low 05/04/2010 Pollen -asthmatic attacks documented as of this encounter (statuses as of 12/21/2022) Medications Medication Sig Dispensed Refills Start Date [...] 2838 mL 5 05/10/2021 Suspended Additional Information Magnesium Chloride 64 MG Oral Tablet Delayed [...] 60 Tablet 9 09/08/2022 Suspended Additional Information Torsemide 20 MG [...] 3600 mL 11 09/09/2022 Suspended Additional Information Mycophenolate Mofetil 500 MG Oral Tablet (Cellcept)Indicatio [...] 135 Tablet 1 09/25/2022 Suspended Additional Information traZODone HCl 50 MG Oral Tablet (Desyrel)Indication [...] as of this encounter (statuses as of 12/21/2022) Active Problems Problem Noted Date Immunodeficiency 12/20/2022 [...] typical SLE sx- negative/normal C3/C4, SSA/SSB, centromere, 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 dsDNA borderline. Grant unlikely SLE. o 2012: Seen again by Rheum- Dr. Jung- photosensitive rash and raynauds. Borderline dsDNA. Grant likely SLE, though possible AIH could explain (+) MARY. HCQ discussed but wanted to avoid by GI. o [id number]: multiple hospitalizations for ascites; returned to Rheum [...] as of this encounter (statuses as of 12/21/2022) Resolved Problems Problem Noted Date Resolved Date [...] as of this encounter (statuses as of 12/21/2022) Immunizations Name Administration Dates Next Due HEP [...] Day Cigarettes 0.3 25 Smokeless Tobacco: Never Tobacco Cessation:Ready to Q uit: Not Asked; Counseling Given: Not Answered Comments:5-6 a day Alcohol [...] Sign Reading Time Taken Comments Blood Pressure 94/61 12/20/2022 11:28 PM EDT Pulse 62 12/20/2022 11:28 PM EDT Temperature 36.2 C (97.2 F) 12/20/2022 10:54 PM E DT Respiratory Rate 14 12/20/2022 11:28 PM EDT Oxygen Saturation 89% 12/20/2022 11:28 PM EDT Inhaled Oxygen Concentration - - Weight 52.6 kg (116 lb) 12/20/2022 4:18 PM EDT Height - - Body Mass Index 18.73 06/15/2022 1:33 PM EST documented in this encounter Functional Status Functional [...] No 12/23/2019 documented as of this encounter ED Notes * Silvio Chow, DO - 12/20/2022 5:07 PM EDT HISTORY OF PRESENT ILLNESS Jazmín Blevins is a 57 year old female who presents to the ED for evaluation of Multiple Complaints. The patient was seen at 12/20/22 1642. SLE, COPD, pulmonary hypertension, esophageal varices cirrhosis. 57-year-old female presenting to the emergency department with bilateral feet swelling, dizziness, blurred vision, fatigue, pain at the base of her scalp over the past 3 days. States the pain is does radiate down her spine when she drops her chin to her chest. Denies any fevers, chills. She does have baseline oxygen requirement of 2 L nasal cannula at night. Reports no chest pain, no increased shortness of breath. Denies fevers, chills, nausea, vomiting, recent sick contacts. She does report recent decrease in urine over the past week even with spironolactone and torsemide. The patient's allergies, past history, and medications were reviewed. PHYSICAL EXAM Initial Vitals (see all): BP 74/46 | Pulse 63 | Resp 16 | Temp 97.9 | O2 89 %, Nasal Cannula | Weight 57.7 kg | Height 167.6 cm | BMI 20.53 kg/m2 Initial Pain Assessment (see all): 6 (severe pain)/10 ([facility] Adult Scale 0-10) Physical Exam Vitals and nursing note reviewed. Constitutional: General: She is not in acute distress. Appearance: She is not ill-appearing, toxic-appearing or diaphoretic. HENT: Right Ear: External ear normal. Left Ear: External ear normal. Nose: Nose normal. Mouth/Throat: Mouth: Mucous membranes are dry. Pharynx: Oropharynx is clear. Eyes: Extraocular Movements: Extraocular movements intact. Pupils: Pupils are equal, round, and reactive to light. Neck: Comments: Neck tenderness of bilateral paraspinal muscles at the base of the skull, no central midline tenderness, no step-off deformities noted Cardiovascular: Rate and Rhythm: Normal rate. Rhythm irregular. Pulses: Dorsalis pedis pulses are detected w/ Doppler on the right side and detected w/ Doppler on the leftside. Posterior tibial pulses are detected w/ Doppler on the right side and detected w/ Doppler on the left side. Pulmonary: Effort: Pulmonary effort is normal. No respiratory distress. Breath sounds: Normal breath sounds. Abdominal: General: Abdomen is flat. Palpations: Abdomen is soft. Tenderness: There is no abdominal tenderness. Musculoskeletal: Right lower leg: Edema (1+ pitting) present. Left lower leg: Edema (1+ pitting) present. Skin: General: Skin is warm and dry. Capillary Refill: Capillary refill takes more than 3 seconds. Neurological: Mental Status: She is alert. PROCEDURES AND TREATMENTS ED Orders | ED Results MEDICAL DECISION MAKING Nursing notes and vital signs were reviewed. ED Course as of 12/21/22 0750 Tue Dec 20, 2022 1653 EKG EKG demonstrates normal sinus rhythm with ventricular rate of approximately 65 beats per minute. There is appropriate axis. Intervals are intact. Appropriate R-wave progression in the precordial leads. When compared to previous dated June 30, 2020, generally unchanged. No evidence of acute ischemic changes appreciated. [DINO] 1706 Hypotensive 79/53 (62), initiating fluid resuscitation measures now before determining whethervasopressors are needed. [DINO] 1716 Blood pressure improving with initial fluid resuscitation. 82/60 (69) [DINO] 1722 90/62 (73) [DINO] 1730 Hemoglobin, Whole Blood(!!): 5.4 [DM] 1730 INR(!): 1.3 [DM] 1730 aPTT: 29 [DM] 1737 HGB(!!): 5.1 [DM] 1737 WBC(!): 10.97 [DM] 1748 CMP unremarkable [DM] 1749 Troponin T, High Sensitivity(!): 15 [DM] 1804 Will transfuse 2 units PRBCs emergently. Now requiring vasopressor to maintain MAP >65 [DINO] 1824 Discussed with critical care, Dr. Jeromy Cuenca, who advised to discuss with medicine. Discussed with [facility], Dr. Luisito Garrido, who will discuss with medicine and return call. [DINO] 191 Per [facility], Dr. Garrido: "Accepted tentatively by Charlene Cohen. However, she needs to be transfused first. If her hemodynamics improve, then she can go to the floor. If not, then she needs to go toICU. Also, there is likely not going to be a floor bed tonight anyways so she will most likely onlyget placed tonight if it's to ICU." [DINO] 2144 CTA Abd/Pelvis with IV contrast only IMPRESSION: 1. No evidence for GI bleed. [...] para-aortic lymph nodes which could be reactive. [DINO] 2145 XR Chest 1 View IMPRESSION: Hazy bibasilar airspace opacities secondary to infiltrate versus atelectasis with small bilateral pleural effusions. [DINO] 2221 Patient has received one unit of PRBCs, second unit is currently being transfused and patient is still requiring 6mcg/min norepinephrine for maintain MAP >65. Advised placement center nurse, Dianelys Angel RN, who is aware of the case and in charge of placement with [facility]. [DINO] 2225 This patient has septic shock and likely source of infection is unknown. Clinical exam of the patient after fluid resuscitation showed: stable findings This assessment was based on the following exam: Mental Status: alert, oriented to person, place, and time, normal mental status exam Cardiovascular: regular rate and rhythm Pulmonary: clear lungs Capillary Refill: delayed Peripheral Pulses: normal Skin: warm and dry Vitals after Crystalloids Date/Time wt-based Crystalloid first given Date 12/20/22 170 Date/Time of last Vitals as of 1 hour after Crystalloid administration: Date 12/20/22 180 Date/Time of last Vitals as of 3 hours after Crystalloid administration: Date 12/20/222006 Date/Time of last Vitals as of 5 hours after Crystalloid administration: Date 12/20/222206 Focused Exam Fluid Resuscitation Reevaluation Date/Time Date 12/20/22 1907 [DINO] 2247 Lipase: 30 [DINO] 2253 Discussed case with attending backshoe person, Dr. Wander Person. Dr. Person accepted to CICU pendingbed placement, transfer center will call back with bed. [DINO] 2304 EMTALA signed by patient. [DINO] ED Course User Index [DM] Silvio Chow DO [DINO] Roque Stringer Jr., PA-C Differential Diagnoses Based on my history, physical exam, and evaluation, the differential includes, but is not limited, to the following diagnoses: Sepsis, meningitis, hemolytic anemia. HPI, exam, ED course as above. 57-year-old female presenting to the emergency department with weakness, shortness of breath, bilateral muscle neck pain, bilateral lower extremity swelling, decreased urine output. Initial primary survey demonstrates extremely hypotensive patient with mean arterial pressure less than 60, initial fluid bolus of 30 milliliters/kilogram was provided, this did initially improve her mean arterial pressure however was not sufficient enough to maintain MAP greater than 65. Hemoglobin was found to be critically low at 5.1 grams/deciliter. Emergency release blood, 2 units were provided. Even after these 2 units patient was still requiring norepinephrine 6 micrograms/mi nute to maintain MAP greater than 65. Patient had new increased oxygen requirement, she does have 2L nasal cannula at bed, was requiring 4 L nasal cannula to maintain saturation just less than 90%. Sepsis alert was called and patient was ordered empiric antibiotics. Lactate was unremarkable. CTA abdomen was obtained in order to evaluate for any acute source of blood loss, CTA did not demonstrateany acute sources of blood loss however did demonstrate concern for pancreatitis however lipase unremarkable. Patient was discussed with backshoe person, Dr. Wander Person, who accepted the patient into his care for further evaluation and management. Patient understands and agrees with this disposition. Patient did remain stable under my care. Amount and/or Complexity of Data Reviewed Labs: ordered. Decision-making details documented in ED Course. Radiology: ordered. Decision-making details documented in ED Course. ECG/medicine tests: ordered. Decision-making details documented in ED Course. Risk Prescription drug management. Clinical Impressions Sepsis (HCC) Anemia, unspecified type Disposition Transferred. The patient's condition at disposition was: stable. Comments ED Disposition Transferred Comment -- Silvio Chow was the attending physician who supervised the care of this patient. Roque Stringer Jr, PA-C ATTENDING ATTESTATION I have seen and examined this patient on the 12/20/2022 visit. I have discussed the patient's management with the provider listed above and agree with the note, findings, and plan of care. Critical Care Time: I personally provided 60 minutes of critical care for this patient. Critical care time was exclusive of separately billable procedures, treating other patients, and teaching. The patient had a high probability of sudden, clinically significant, life-threatening deterioration. Critical care was necessary to treat the following conditions: septic shock (hypovolemic shock). Critical care was time spent personally by me on the following activities: administration of IV vasoactive meds, interpretation of cardiac output measurements, evaluation of patient's response to treatment, development of treatment plan and discussions with consultants. Silvio Chow DO * Ronit Villegas RN - 12/20/2022 4:20 PM EDT Patient reports leg and feet swelling, dizziness, and neck/back pain since last Monday. Describes the neck pain radiating down to lower pack. documented in this encounter Miscellaneous Notes * ED Provider Relations Representative Note - Wander Saenz RN - 12/20/2022 11:40 PM EDT ALS crew left with pt * ED Provider Relations Representative Note - Wander Saenz RN - 12/20/2022 11:34 PM EDT ALS TRANSPORT HERE FOR PT * ED Provider Relations Representative Note - MARINE To - 12/20/2022 11:23 PM EDT MICU [address] @2322 * ED Provider Relations Representative Note - MARINE To - 12/20/2022 11:22 PM EDT MS ICU 5 BED 548 * ED Provider Relations Representative Note - MARINE To - 12/20/2022 11:08 PM EDT PT transfer packet complete. Roundtrip placed as "will call". Awaiting bed assignment from [facility]. * ED Provider Relations Representative Note - Wander Saenz RN - 12/20/2022 10:55 PM EDT PAC Coot aware of pt oxygen saturation, pt in no distress at all * ED Provider Relations Representative Note - Wander Saenz RN - 12/20/2022 9:00 PM EDT unit # 1 blood infused * ED Provider Relations Representative Note - Wander Saenz RN - 12/20/2022 7:35 PM EDT Pt to CT scan with this RN and billposting supervisor * ED Provider Relations Representative Note - Wander Saenz RN - 12/20/2022 7:32 PM EDT Blood transfusion increased to 200 ml/hr * ED Provider Relations Representative Note - MARINE Morejon - 12/20/2022 6:35 PM EDT BSG finger stick from middle finger on right hand. Site prepped with alcohol swab and rubbing vigorously for 15 seconds. Initial drop of blood wiped away with 2x2, then sample applied to glucometer strip. Result of 99, notified RN and provider. Site dressed with band-aid. Procedure confirmed for correct Patient with two (2) Patient identifiers. * ED Provider Relations Representative Note - Gareth Edmonds RN - 12/20/2022 5:17 PM EDT X-ray at bedside. documented in this encounter Plan of Treatment Upcoming Encounters Date Type Specialty Care Team Description 01/04/2023 Telemedicine Endocrinology Gilbert Hawkins MD [address] [place] [address] 01/09/2023 Office Visit Ophthalmology Fran French DO [address] [place] [address] 03/16/2023 Office Visit Pulmonary Twin Hayden MD [address] [place] [address] Pending Results Name Type Priority Associated Diagnoses Date /Time CULTURE, BLOOD Lab STAT 12/20/2022 5:01 PM EDT CULTURE, BLOOD Lab STAT 12/20/2022 5:01 PM EDT LD Lab Add-on 12/20/2022 5:0 1 PM EDT HAPTOGLOBIN Lab Add-on 12/20/2022 5: 01 PM EDT Scheduled Orders Name Type Priority Associated Diagnoses Orde r Schedule EKG EKG STAT Sepsis (HCC) Perform Now for 1 Occurrences starting 12/20/2022 until 12/20/2022 URINALYSIS, REFLEX TO MICROSCOPIC Lab STAT Perform Now for 1 Occurrences starting 12/20/2022 until 12/20/2022 LD Lab Add-on Perform Now fo r 1 Occurrences starting 12/20/2022 until 12/20/2022 HAPTOGLOBIN Lab Add-on Perform Now f or 1 Occurrences starting 12/20/2022 until 12/20/2022 Scheduled Procedures Name Priority Associated Diagnoses Date/Ti me ESOPHAGOGASTRODUODENOSCOPY ( EGD), FLEXIBLE, TRANSORAL, DIAGNOSTIC Recall Jones's esophagus Family history of colon cancer Rectal varices COLONOSCOPY FLEXIBLE PROXIMAL DIAGNOSTIC Recall Jones's esophagus Family history of colon cancer Rectal varices ESOPHAGOGASTRODUODENOSCOPY ( EGD), FLEXIBLE, TRANSORAL, DIAGNOSTIC Recall Gastroesophageal reflux disease without esophagitis Health Maintenance Due Date Last Done Comments DISCUSS TOBACCO CESSATION (REFER TO SMARTSET #8551) 1965 COVID-19 Vaccine (#1) 1970 Alpha-1 Antitrypsin 1983 Zoster Vaccines (1 of 2) 1984 HPV/Co-Test 1995 Pneumococcal Vaccine: Pediatrics (0 to 5 Years) and At-Risk Patients (6 to 64 Years) (2 - PCV) 12/25/2013 12/25/2012 *ADVANCE DIRECTIVE NOT ON FILE 07/09/2020 Cervical Cancer Screening 01/01/2022 Pap Smear 01/01/2022 01/01/2019, 07/09, 05/06/2013, Additional history exists Depression Screening 09/07/2022 09/07/2021 HbA1c 09/20/2022 09/20/2021, 0808/2019, 02/28/2019, Additional history exists Influenza Vaccine (FLU [...] this encounter Medical Devices Implanted Type Area Engine Assembler Device Identifier Shelf Expiration Date Model / Serial / Lot Lens 22.0 Sa60at - [id number] Implanted:Qty: 1 on 10/15/2012 at OR [facility] Left: Eye [employer] 10/07/2016 SA60AT / [id number] / Lens 22.0 Sa60at - [id number] Implanted:Qty: 1 on 11/29/2012 at OR [facility] Right: Eye [employer] 03/31/2017 SA60AT / [id number] / Duraclip 11mm Repositionable - [id number] Implanted:Qty: 1 on 05/11/2022 by Jeffrey Weber MD at ENDOSCOPY [facility] Friendfer [id number] 01/29/2024 [id number] / / [id number] documented as of this encounter Procedures Procedure Name Priority Date/Time Associated Diagnosis Comments ABO/RH STAT 12/20/2022 9:43 PM EDT TYPE AND SCREEN STAT 12/20/2022 9:43 PM EDT PREPARE PACKED RED BLOOD CELLS Routine 12/20/2022 9:08 PM EDT CTA ABD/PELVIS STAT 12/20/2022 7:55 PM EDT PREPARE PACKED RED BLOOD CELLS STAT 12/20/2022 7:03 PM EDT GLUCOSE METER, POINT OF CARE IJMBO 12/20/2022 6:33 PM EDT XR CHEST 1 VIEW STAT 12/20/2022 5:23 PM EDT LACTATE, WHOLE BLOOD WITH REFLEX IF ABNORMAL STAT 12/20/2022 5:01 PM EDT DIFFERENTIAL, AUTOMATED STAT 12/20/2022 5:01 PM EDT TROPONIN T, HIGH SENSITIVITY STAT 12/20/2022 5:01 PM EDT PROCALCITONIN STAT 12/20/2022 5:01 PM EDT BLOOD GAS, VENOUS STAT 12/20/2022 5:0 1 PM EDT BILIRUBIN, DIRECT Add-on 12/20/2022 5:0 1 PM EDT COMPREHENSIVE METABOLIC PANEL STAT 12/20/2022 5:01 PM EDT CBC WITH WBC DIFFERENTIAL STAT 12/20/2022 5:01 PM EDT PT INR STAT 12/20/2022 5:01 PM EDT LIPASE Add-on 12/20/2022 5:01 PM EDT CULTURE, BLOOD STAT 12/20/2022 5:01 PM EDT CULTURE, BLOOD STAT 12/20/2022 5:01 PM EDT APTT STAT 12/20/2022 5:01 PM EDT CBC STAT 12/20/2022 5:01 PM EDT DIFFERENTIAL, TECHNOLOGIST REVIEW Routine 12/20/2022 5:01 PM EDT documented in this encounter Results * TRANSFUSE PACKED RED BLOOD CELLS (12/20/2022 11:14 PM EDT) Roque Stringer Jr., PA-C BLD BANK TRANFUSE ORDERABLES * ABO/RH (12/20/2022 9:43 PM EDT) ABO AB 12/21/2022 1:47 AM EDT LABORATORY [facility] Rh Positive 12/21/2022 1:47 AM EDT LABORATORY [facility] Blood Venous blood specimen / Unknown Venipuncture / Unknown 12/20/2022 9:43 PM EDT 12/20/2022 9:45 PM EDT Roque Stringer Jr., PA-C LAB BLOOD BANK TEST ORDERABLES LABORATORY [facility] [address] [place] [address] * TYPE AND SCREEN (12/20/2022 9:43 PM EDT) ABO AB 12/21/2022 1:27 AM EDT LABORATORY [facility] Rh Positive 12/21/2022 1:27 AM EDT LABORATORY [facility] Red Blood Cell Antibody Screen Negative 12/21/2022 1:27 AM EDT LABORATORY [facility] Specimen Expiration Date 12/23/2022 23:59 12/21/2022 1:27 AM EDT LABORATORY [facility] Blood Venous blood specimen / Unknown Venipuncture / Unknown 12/20/2022 9:43 PM EDT 12/20/2022 9:45 PM EDT Roque Stringer Jr., PA-C LAB BLOOD BANK TEST ORDERABLES Performing Organization Address [facility] Co de Phone Number LABORATORY [facility] [address] [place] [address] * EMERGENCY RELEASE PACKED RED BLOOD CELLS (12/20/2022 9:38 PM EDT) Silvio Chow D BANK TRANFUSE ORDERABLES * PREPARE PACKED RED BLOOD CELLS (12/20/2022 9:08 PM EDT) Unit Product Code [id number] LABORATORY [facility] Unit Number [id number] LABO RATORY [facility] Unit ABO O LABORATORY [facility] Unit Rh POS LABORATORY [facility] Unit Status PI LABORATO RY [facility] Unit Blood Type OPOS LABORATORY [facility] Unit Expiration [id number] LABORATORY [facility] Unit Barcode 5100 LABORAT ORY [facility] Unit Crossmatch Compatible LABORATORY [facility] 12/20/2022 9:08 PM EDT Silvio Chow D BANK PRODUCT O RDERABLES Performing Organization Address [facility] Co de Phone Number LABORATORY [facility] [address] [place] [address] * CTA ABD/PELVIS (12/20/2022 7:55 PM EDT) Anatomical Region Laterality Modality Abdomen, Pelvis, Body Computed T omography 12/20/2022 7:21 PM EDT Impressions 12/20/2022 8:27 PM EDT IMPRESSION: 1. No evidence for GI bleed. [...] BEEN ELECTRONICALLY SIGNED BY MARK LEMUS MD Narrative 12/20/2022 8:27 PM EDT PROCEDURE INFORMATION: Exam: CTA Abdomen [...] Bones/joints: No acute fracture. Soft tissues: Unremarkable. Procedure Note Mark Lemus MD - 12/20/2022 PROCEDURE INFORMATION: Exam: CTA Abdomen and Pelvis [...] in prior 12 months: This patient hasreceived 0 known CTs and 0 known cardiac nuclear medicine studies in the 12 monthsprior to the current study. COMPARISON: CT CHEST WO(Adult) 10/27/2021 3:03 PM FINDINGS: Lungs: Airspace opacities are seen in the bilateral lower lobes. Pleural spaces: Small left pleural effusion. Aorta: Atherosclerosis of the abdominal aorta and iliac arteries. Noaneurysm. Celiac trunk and mesenteric arteries: No occlusion or significantstenosis. Renal arteries: No occlusion or significant stenosis. Right iliac arteries: No occlusion or significant stenosis. Left iliac arteries: No occlusion or significant stenosis. Liver: Liver demonstrate nodular contour secondary to cirrhosis. No focalmass. Gallbladder and bile ducts: Gallbladder is surgically absent. No bile duct obstruction. Pancreas: Mild peripancreatic inflammation and trace free fluid. Nopancreatic duct dilatation or pseudocyst. Spleen: Unremarkable. No splenomegaly. Adrenal glands: Unremarkable. No mass. Kidneys and ureters: Congenital malrotation of the right kidney. No hydronephrosis or nephrolithiasis. Stomach and bowel: No GI bleed. No bowel obstruction. There is wallthickening involving the proximal ascending colon, descending and sigmoid colon. Appendix: No evidence of appendicitis. Intraperitoneal space: Small volume ascites. No free air. Lymph nodes: Few prominent nonenlarged peripancreatic lymph nodes. Fewmoderate appearing borderline enlarged left para-aortic lymph nodes. Urinary bladder: Unremarkable. No mass. Reproductive: Unremarkable as visualized. Bones/joints: No acute fracture. Soft tissues: Unremarkable. IMPRESSION IMPRESSION: 1. No evidence for GI bleed. 2. Finding concerning for pancreatitis. No pancreatic duct dilatation or pseudocyst. Recommend correlation with labs. 3. Hepatic cirrhosis with ascites. 4. Wall thickening of the proximal ascending, descending and sigmoidcolon which could be secondary to hypertensive portal colopathy. However,infectious versus inflammatory colitis cannot be excluded. 5. Nonenlarged peripancreatic and few borderline enlarged leftpara-aortic lymph nodes which could be reactive. THIS DOCUMENT HAS BEEN ELECTRONICALLY SIGNED BY MARK LEMUS MD Roque Stringer Jr., PA-C RAD CT * PREPARE PACKED RED BLOOD CELLS (12/20/2022 7:03 PM EDT) Unit Product Code [id number] LAB[facility]ATORY [facility] Unit Number [id number] LABO RATORY [facility] Unit ABO O LABORATORY C BLOOD BANK Unit Rh POS LAB[facility] Unit Status PI [facility] [facility] Blood Type [facility] Expiration [id number] [facility] Barcode 5100 LABORAT ORY [facility] Crossmatch Compatible [facility] 12/20/2022 7:03 PM EDT Roque Stringer Jr., PA-C BLD BANK PRODUCT ORDERABLES LAB[facility]AT[facility] [address] [place] [address] * GLUCOSE METER, POINT OF CARE (12/20/2022 6:33 PM EDT) Glucose Meter 99 70 - 120 mg/dL 12/20/2022 6:36 PM EDT LABORATORY [facility] Blood Whole blood specimen / Unknown 12/20/2022 6:33 PM EDT 12/20/2022 6:36 PM EDT Silvio Chow DO LAB POINT OF CARE TEST DOCKED DEVICE UNSOLICITED RESULTS LABORATORY [facility] [address] [place] [address] * XR CHEST 1 VIEW (12/20/2022 5:23 PM EDT) Anatomical Region Laterality Modality Chest Computed Radiogr aphy 12/20/2022 5:17 PM EDT Impressions 12/20/2022 6:02 PM EDT IMPRESSION: Hazy bibasilar airspace opacities secondary to infiltrate versus atelectasis with small bilateral pleural effusions. THIS DOCUMENT HAS BEEN ELECTRONICALLY SIGNED BY MARK LEMUS MD Narrative 12/20/2022 6:02 PM EDT PROCEDURE INFORMATION: Exam: XR Chest Exam date [...] pneumothorax. Heart/Mediastinum: Unremarkable. No cardiomegaly. Bones/joints: Unremarkable. Procedure Note Mark Lemus MD - 12/20/2022 PROCEDURE INFORMATION: Exam: XR Chest Exam date [...] pneumothorax. Heart/Mediastinum: Unremarkable. No cardiomegaly. Bones/joints: Unremarkable. IMPRESSION IMPRESSION: Hazy bibasilar airspace opacities secondary to infiltrate versusatelectasis with small bilateral pleural effusions. THIS DOCUMENT HAS BEEN ELECTRONICALLY SIGNED BY MARK LEMUS MD Roque Stringer Jr., PA-C RADIOLOGY (RAD GENERAL) * LIPASE (12/20/2022 5:01 PM EDT) Lipase 30 13 - 60 U/L 12/20/2022 10:39 PM EDT LABORATORY [facility] Blood Venous blood specimen / Unknown Venipuncture / Unknown 12/20/2022 5:01 PM EDT 12/20/2022 5:18 PM EDT Roque Stringer Jr., PA-C LAB BLOOD ORDERABLES Performing Organization Address [facility] Co de Phone Number LABORATORY [address] [address] * BILIRUBIN, DIRECT (12/20/2022 5:01 PM EDT) Pathologist [facility] Bilirubin, Direct 0.2 0.0 - 0.3 mg/dL 12/20/2022 6:40 PM EDT LABORATORY [facility] Blood Venous blood specimen / Unknown Venipuncture / Unknown 12/20/2022 5:01 PM EDT 12/20/2022 5:18 PM EDT Roque Stringer Jr., PA-C LAB BLOOD ORDERABLES Performing Organization Address [facility] de Phone Number LABORATORY [address] [address] * DIFFERENTIAL, TECHNOLOGIST REVIEW (12/20/2022 5:01 PM EDT) Pathologist [facility] nRBCs 12/20/2022 5:32 PM EDT LABORATORY [facility] Blood Venous blood specimen / Unknown Venipuncture / Unknown 12/20/2022 5:01 PM EDT 12/20/2022 5:17 PM EDT Roque Stringer Jr., PA-C LAB BLOOD ORDERABLES Performing Organization Address [facility] Co de Phone Number LABORATORY [address] [phone] * (ABNORMAL) DIFFERENTIAL, AUTOMATED (12/20/2022 5:01 PM EDT) Pathologist [facility] WBC 10.97(H) 4.00 - 10.80 K/uL 12/20/2022 5:32 PM EDT LABORATORY [facility] Neutrophils % 83.2(H) 40.0 - 75.0 % 12/20/2022 5:32 PM EDT LABORATORY [facility] Lymphocytes % 9.1(L) 18.0 - 42.0 % 12/20/2022 5:32 PM EDT LABORATORY [facility] Monocytes % 7.0 1.0 - 11.0 % 12/20/2022 5:32 PM EDT LABORATORY [facility] Eosinophils % 0.4 0.0 - 6.0 % 12/20/2022 5:32 PM EDT LABORATORY [facility] Basophils % 0.3 0.0 - 2.0 % 12/20/2022 5:32 PM EDT LABORATORY [facility] Absolute Neutrophils 9.13(H) 1.80 - 7.70 K/uL 12/20/2022 5:32 PM EDT LABORATORY [facility] Absolute Lymphocytes 1.00 1.00 - 4.80 K/ul 12/20/2022 5:32 PM EDT LABORATORY [facility] Absolute Monocytes 0.77 0.00 - 1.10 K/uL 12/20/2022 5:32 PM EDT LABORATORY [facility] Absolute Eosinophils 0.04 0.00 - 0.70 K/uL 12/20/2022 5:32 PM EDT LABORATORY [facility] Absolute Basophils 0.03 0.00 - 0.20 K/uL 12/20/2022 5:32 PM EDT LABORATORY [facility] Blood Venous blood specimen / Unknown Venipuncture / Unknown 12/20/2022 5:01 PM EDT 12/20/2022 5:17 PM EDT Roque Stringer Jr., PA-C LAB BLOOD ORDERABLES LABORATORY [place] [id number] [place] [address] * (ABNORMAL) CBC (12/20/2022 5:01 PM EDT) [facility] WBC 10.97(H) 4.00 - 10.80 K/uL 12/20/2022 5:32 PM EDT LABORATORY [facility] RBC 2.67 3.85 - 5.15 M/uL 12/20/2022 5:32 PM EDT LABORATORY [facility] HGB 5.1(LL) 12.0 - 15.3 g/dL 12/20/2022 5:32 PM EDT LABORATORY [facility] HCT 18.2(L) 36.0 - 45.2 % 12/20/2022 5:32 PM EDT LABORATORY [facility] MCV 68.2 81.5 - 97.5 fL 12/20/2022 5:32 PM EDT LABORATORY [facility] MCH 19.1 27.0 - 34.0 pg 12/20/2022 5:32 PM EDT LABORATORY [facility] MCHC 28.0 32.0 - 36.0 g/dL 12/20/2022 5:32 PM EDT LABORATORY [facility] RDW 20.2 11.5 - 15.5 % 12/20/2022 5:32 PM EDT LABORATORY [facility] PLT 231 140 - 400 K/uL 12/20/2022 5:32 PM EDT LABORATORY [facility] MPV 11.1 6.6 - 11.1 fL 12/20/2022 5:32 PM EDT LABORATORY [facility] Blood Venous blood specimen / Unknown Venipuncture / Unknown 12/20/2022 5:01 PM EDT 12/20/2022 5:17 PM EDT Roque Stringer Jr., PA-C LAB BLOOD ORDERABLES LABORATORY [place] [id number] [place] [address] * (ABNORMAL) BLOOD GAS, VENOUS (12/20/2022 5:01 PM EDT) Temperature 37.0 C 12/20/2022 5:25 PM EDT LABORATORY [facility] pH, Venous 7.419 7.320 - 7.430 units 12/20/2022 5:25 PM EDT LABORATORY [facility] pCO2, Venous 41.5 40.0 - 60.0 mmHg 12/20/2022 5:25 PM EDT LABORATORY [facility] pO2, Venous 13.2(L) 25.0 - 50.0 mmHg 12/20/2022 5:25 PM EDT LABORATORY [facility] Base Excess, Venous 2.2(H) -2.0 - 2.0 mmol/L 12/20/2022 5:25 PM EDT LABORATORY [facility] Hemoglobin, Whole Blood 5.4(LL) 12.0 - 15.3 g/dL 12/20/2022 5:25 PM EDT LABORATORY [facility] Oxyhemoglobin, Venous 13.3(L) 40.0 - 85.0 % total Hgb 12/20/2022 5:25 PM EDT LABORATORY [facility] Carboxyhemoglobi n, Whole Blood 2.7(H) <=1.5 % total Hgb 12/20/2022 5:25 PM EDT LABORATORY [facility] Comment:Smokers: 0-9.0 % Methemoglobin, Whole Blood 1.9(H) <=1.5 % total Hgb 12/20/2022 5:25 PM EDT LABORATORY [facility] Reduced Hemoglobin, Venous 82.1 % total Hgb 12/20/2022 5:25 PM EDT LABORATORY [facility] O2 Content, Venous 1.0(L) 7.0 - 18.0 %vol 12/20/2022 5:25 PM EDT LABORATORY [facility] Bicarbonate, Whole Blood 26.9 23.0 - 31.0 mmol/L 12/20/2022 5:25 PM EDT LABORATORY [facility] Blood Venous blood specimen / Unknown Venipuncture / Unknown 12/20/2022 5:01 PM EDT 12/20/2022 5:18 PM EDT Roque Stringer Jr. PAOrianaC LAB BLOOD ORDERABLES Performing Organization Address City/State/[facility] Co de Phone Number LABORATORY [address] [phone] * APTT (12/20/2022 5:01 PM EDT) aPTT 29 21 - 38 seconds 12/20/2022 5:29 PM EDT LABORATORY [facility] Blood Venous blood specimen / Unknown Venipuncture / Unknown 12/20/2022 5:01 PM EDT 12/20/2022 5:17 PM EDT Narrative LABORATORY [facility] - 12/20/2022 5:29 PM EDT Anticoagulation may affect testing. Refer to [employer] Test Catalog for a list of effects. Roque Stringer Jr., PA-C LAB BLOOD ORDERABLES Performing Organization Address City/[facility]/ZIP Co de Phone Number LABORATORY [address] [phone] * (ABNORMAL) PT INR (12/20/2022 5:01 PM EDT) Prothrombin Time 16.2(H) 11.6 - 15.2 seconds 12/20/2022 5:29 PM EDT LABORATORY [facility] INR 1.3(H) 0.8 - 1.2 12/20/2022 5:29 PM EDT LABORATORY [facility] Blood Venous blood specimen / Unknown Venipuncture / Unknown 12/20/2022 5:01 PM EDT 12/20/2022 5:17 PM EDT Narrative LABORATORY [facility] - 12/20/2022 5:29 PM EDT Warfarin Therapy INR: 2.0-3.0 conventional anticoagulation INR: 2.5-3.5 high intensity anticoagulation Roque Stringer Jr., PA-C LAB BLOOD ORDERABLES Performing Organization Address [facility] Co de Phone Number LABORATORY [address] [phone] * LACTATE, WHOLE BLOOD WITH REFLEX IF ABNORMAL (12/20/2022 5:01 PM EDT) Pathologist [facility] Lactate, Whole Blood 1.9 0.4 - 2.0 mmol/L 12/20/2022 5:25 PM EDT LABORATORY [facility] Blood Venous blood specimen / Unknown Venipuncture / Unknown 12/20/2022 5:01 PM EDT 12/20/2022 5:18 PM EDT Roque Stringer Jr., PA-C LAB BLOOD ORDERABLES Performing Organization Address [facility] Co de Phone Number LABORATORY [address] [phone] * (ABNORMAL) TROPONIN T, HIGH SENSITIVITY (12/20/2022 5:01 PM EDT) Pathologist [facility] Troponin T, High Sensitivity 15(H) <=14 ng/L 12/20/2022 5:40 PM EDT LABORATORY [facility] Blood Venous blood specimen / Unknown Venipuncture / Unknown 12/20/2022 5:01 PM EDT 12/20/2022 5:18 PM EDT Roque Stringer Jr., PA-C LAB BLOOD ORDERABLES LABORATORY [facility] [address] [place] [address] * (ABNORMAL) PROCALCITONIN (12/20/2022 5:01 PM EDT) [facility] Procalcitonin 0.18(H) <0.10 ng/mL 12/20/2022 11:10 PM EDT [facility]ORY [facility] Blood Venous blood specimen / Unknown Venipuncture / Unknown 12/20/2022 5:01 PM EDT 12/20/2022 5:18 PM EDT [facility]AT[facility] - 12/20/2022 11:10 PM EDT Less than 0.5 ng/mL: Low risk for progression to sepsis. Review patients condition for localized infections. 0.5 to 2.0 ng/mL: Intermediate risk for progresion to sepsis. Review underlying conditions. Recommend repeat PCT after 6 hours has elapsed. Greater than 2.0 ng/mL: high risk for progression to sepsis unless other causes are known. WAYNE Mccall Jr.C LAB BLOOD ORDERABLES [facility] [address] [place] [address] * (ABNORMAL) COMPREHENSIVE METABOLIC PANEL (12/20/2022 5:01 PM EDT) Pathologist [facility] BUN 35(H) 6 - 20 mg/dL 12/20/2022 5:40 PM EDT LABORATORY [facility] Creatinine 2.6(H) 0.5 - 1.0 mg/dL 12/20/2022 5:40 PM EDT LABORATORY [facility] Estimated Glomerular Filtration Rate 21(L) >=60 mL/min 12/20/2022 5:40 PM EDT LABORATORY [facility] Comment:eGFR is calculated b ased on the CKD-EPI 2020 equation Sodium 130(L) 135 - 146 mmol/L 12/20/2022 5:40 PM EDT LABORATORY [facility] Potassium 3.1(L) 3.5 - 5.1 mmol/L 12/20/2022 5:40 PM EDT LABORATORY [facility] Chloride 93(L) 98 - 107 mmol/L 12/20/2022 5:40 PM EDT LABORATORY [facility] CO2 25 22 - 32 mmol/L 12/20/2022 5:40 PM EDT LABORATORY [facility] Anion Gap 12 7 - 15 mmol/L 12/20/2022 5:40 PM EDT LABORATORY [facility] Glucose 130(H) 70 - 120 mg/dL 12/20/2022 5:40 PM EDT LABORATORY [facility] Albumin 3.0(L) 3.8 - 5.0 g/dL 12/20/2022 5:40 PM EDT LABORATORY [facility] AST 12 10 - 35 U/L 12/20/2022 5:40 PM EDT LABORATORY [facility] Alkaline Phosphatase 74 35 - 130 U/L 12/20/2022 5:40 PM EDT LABORATORY [facility] Bilirubin, Total 0.5 <=1.2 mg/dL 12/20/2022 5:40 PM EDT LABORATORY [facility] Calcium 8.4 8.4 - 10.2 mg/dL 12/20/2022 5:40 PM EDT LABORATORY [facility] Protein 6.6 6.0 - 8.3 g/dL 12/20/2022 5:40 PM EDT LABORATORY [facility] ALT 7(L) 10 - 35 U/L 12/20/2022 5:40 PM EDT LABORATORY [facility] Blood Venous blood specimen / Unknown Venipuncture / Unknown 12/20/2022 5:01 PM EDT 12/20/2022 5:18 PM EDT Roque Stringer Jr., PA-C LAB BLOOD ORDERABLES LABORATORY [facility] [address] [place] [address] documented in this encounter Visit Diagnoses Diagnosis Anemia, unspecified type- Primary Sepsis (HCC) Unspecified septicemia Septic shock (HCC) Unspecified septicemia documented in this encounter Administered Medications Inactive Administered Medications - up to 3 most recent administrations Medication Order MAR Action Action Date Dose Rate Site Ioversol (Optiray 350) 74 % inj 100 mL 100 mL, Intravenous, ONCE, On Mon12/20/22 at 2030, For 1 dose, Radiology Medication Routing (Non-IR) Given 12/20/2022 7:56 PM EDT 100 mL ISOLYTE 1,600 mL bolus infusion (SEE ADMIN INSTRUCTIONS) Intravenous, at 1,200 mL/hr, Obtain vital signs q15 min x 4 beginning within the hour after fluid bolus end time, then resume vital signs as ordered. Estimated body weight used for bolus dose calculation. There is no height or weight on file to calculate BMI. Plasma-LYTE 148, isolyte-S, and isolyte-S pH 7.4 are considered equivalent - including for MAR barcode scanning., ONCE, 1 dose, On Mon12/20/22 at 1730 New Bag 12/20/2022 5:06 PM EDT 1,600 mL 1200 mL/hr NORepinephrine (Levophed) 4 mg in 250 ml D5W STANDARD CONCENTRATION 16 mcg/ml Central IV, 0-30 mcg/min (0-112.5 mL/hr), TITRATE, Starting on Mon12/20/22 at 1845, Until Mon12/21/22 at 0100 Rate Change 12/20/2022 7:03 PM EDT 6 mcg/min 22.5 mL/hr Rate Change 12/20/2022 6:34 PM EDT 4 mcg/min 15 mL/hr New Bag 12/20/2022 6:17 PM EDT 2 mcg/min 7.5 mL/hr Piperacillin-Tazobactam (Zosyn) 4.5 g in 100 mL NSS ivpb (HALF hour infusion) 4.5 g, IV Piggyback, ONCE, On Mon12/20/22 at 1730, For 1 dose New Bag 12/20/2022 5:14 PM EDT 4.5 g 200 mL/hr vancomycin (Vancocin) 1,250 mg in NSS 250 mL ivpb 1,250 mg, IV Piggyback, ONCE, 1 dose, On Mon12/20/22 at 1730 New Bag 12/20/2022 5:30 PM EDT 1,250 mg 183.33 mL/hr documented in this encounter Active and Recently Administered Medications Times are shown in EDT. Scheduled Medication Order 12/18/2022 12/19/2022 12/20/2022 Ioversol (Optiray 350) 74 % inj 100 mL (COMPLETED) 100 mL, Intravenous, ONCE, On Mon12/20/22 at 2030, For 1 dose, Radiology Medication Routing (Non-IR) 1956 (Given - Provid er: Deanna Anthony, RT (R)) ISOLYTE 1,600 mL bolus infusion (SEE ADMIN INSTRUCTIONS) (COMPLETED) Intravenous, at 1,200 mL/hr, Obtain vital signs q15 min x 4 beginning within the hour after fluid bolus end time, then resume vital signs as ordered. Estimated body weight used for bolus dose calculation. There is no height or weight on file to calculate BMI. Plasma-LYTE 148, isolyte-S, and isolyte-S pH 7.4 are considered equivalent - including for MAR barcode scanning., ONCE, 1 dose, On Mon12/20/22 at 1730 1706 (New Bag - Prov ider: Nubia Hoffman RN)1818 (Stopped - Provider: Gareth Edmonds, NELLIE) Piperacillin-Tazobactam (Zosyn) 4.5 g in 100 mL NSS ivpb (HALF hour infusion) (COMPLETED) 4.5 g, IV Piggyback, ONCE, On Mon12/20/22 at 1730, For 1 dose 1714 (New Bag - Prov ider: Nubia Hoffman RN)1818 (Stopped - Provider: Gareth Edmonds, NELLIE) vancomycin (Vancocin) 1,250 mg in NSS 250 mL ivpb (COMPLETED) 1,250 mg, IV Piggyback, ONCE, 1 dose, On Mon12/20/22 at 1730 1730 (New Bag - Prov ider: Ronit Villegas RN)2106 (Stopped - Provider: Wander Saenz RN) Continuous Medication Order 12/18/2022 12/19/2022 12/20/2022 NORepinephrine (Levophed) 4 mg in 250 ml D5W STANDARD CONCENTRATION 16 mcg/ml Central IV, 0-30 mcg/min (0-112.5 mL/hr), TITRATE, Starting on Mon12/20/22 at 1845, Until Mon12/21/22 at 0100 1817 (New Bag - Prov ider: Ronit Villegas RN)1834 (Rate Change - Provider: Ronit Villegas RN)1903 (Rate Change - Provider: Wander Saenz RN) documented in this encounter Advance Directives Latest [...] the patient have Health Care Power of Decorating Kiln Operator? No Full Code 12/06/2019 4:21 AM 12/11/2019 5:39 PM This o rder reflects the patients wishes and were consensually agreed upon. Question Answer Comments Discussion of Advance Directives occurred with: Patient Care Teams Enterprise Resource Analyst Relationship Specialty Start Date End Date Reggie Eddy, [place] [address] PCP - General Internal Medicine 03/08/22 documented as of this encounter
--- OUTSIDE RECORDS SUMMARY | 2023-03-19 22:32 | External Medical Summary ---
Author Name Unknown Address Unknown Organization K01:LABORATORY C - [address] [facility] [address] Laboratory Report Ordering Provider Test Date Status MELIDAROBERTO 12/21/2022 01:25:00 Final Observation Date Value Abnormality Reference (Units ) Status Magnesium 12/21/2022 01:25:00 1.6 1.5-2.6 (m g/dL) Final Performing Location LABORATORY [facility] - [address] [facility] [address]
--- OUTSIDE RECORDS SUMMARY | 2023-03-19 22:32 | External Medical Summary ---
Author Name Unknown Address Unknown Organization K01:LABORATORY [facility] - [address] [facility] [address] Laboratory Report Ordering Provider Test Date Status ROBERTO MONTEZ 12/21/2022 01:25:00 Final If R time > 20 minutes and n o clot formed suggesting hypocoagulable state or interfering substance (anticoagulation). Consider resubmitting a new sample and/or checking PT/INR, aPTT, fibrinogen, and platelet count. Observation Date Value Abnormality Reference (Units) Status Clot formation [Time] in Blood by Thromboelastography 12/21/2022 01:25:00 3.0 2.5-8.3 (minutes) Final Clot strength in Blood by Thromboelastography 12/21/2022 01:25:00 1.0 0.5-3.7 (minutes) Final Clot angle in Blood by Thromboelastography 12/21/2022 01:25:00 74.3 46.8-78.4 (degrees) Final Maximum clot firmness [Length] in Blood by Thromboelastography 12/21/2022 01:25:00 71.8 50.6-72.5 (mm) Final Coagulation index in Blood by Thromboelastography 12/21/2022 01:25:00 4.3 Above high normal -3.0-3.0 Final Clot Lysis [Length fraction] in Blood by Thromboelastography --30 minutes post maximum clot amplitude 12/21/2022 01:25:00 0.0 0.0-7.5 (%) Final This is an appended report. These results have been appended to a previously preliminary verified report. Performing Location LABORATORY [facility] - [address] [facility] [address]
--- OUTSIDE RECORDS SUMMARY | 2023-03-19 22:32 | External Medical Summary ---
Author Name Unknown Address Unknown Organization K01:LABORATORY [facility] - [facility] [address] [facility] [address] Laboratory Report Ordering Provider Test Date Status VILMA HERNANDEZ 12/21/2022 20:21:00 Final Observation Date Value Abnormality Reference (Units ) Status WBC, Total 12/21/2022 20:21:00 9.27 4.00-10.80 (K/uL) Final RBC 12/21/2022 20:21:00 3.86 3.85-5.15 (M/uL) Final Hemoglobin 12/21/2022 20:21:00 8.4 Below low normal 12.0-15.3 (g/dL) Final HCT 12/21/2022 20:21:00 28.8 Below low normal 36.0-45.2 (%) Final MCV 12/21/2022 20:21:00 74.6 81.5-97.5 (fL) Final MCH 12/21/2022 20:21:00 21.8 27.0-34.0 (pg) Final MCHC 12/21/2022 20:21:00 29.2 32.0-36.0 (g/dL) Final RDW 12/21/2022 20:21:00 22.5 11.5-15.5 (%) Final Platelets 12/21/2022 20:21:00 234 140-400 (K/uL) Final MPV 12/21/2022 20:21:00 10.9 6.6-11.1 (fL) Final Nucleated erythrocytes/100 leukocytes [Ratio] in Blood by Automated count 12/21/2022 20:21:00 0 <=0 (/100 WBCs) Final Performing Location LABORATORY [facility] - [address] [place] [address]
--- OUTSIDE RECORDS SUMMARY | 2023-03-19 22:32 | External Medical Summary ---
Author Name Unknown Address Unknown Organization K01:LABORATORY [facility] - [facility] [address] [facility] [address] Laboratory Report Ordering Provider Test Date Status ROBERTO MONTEZ 12/21/2022 11:32:00 Final Observation Date Value Abnormality Reference (Units ) Status WBC, Total 12/21/2022 11:32:00 10.13 4.00-10.80 (K/uL) Final RBC 12/21/2022 11:32:00 3.58 3.85-5.15 (M/uL) Final Hemoglobin 12/21/2022 11:32:00 7.5 Below low normal 12.0-15.3 (g/dL) Final HCT 12/21/2022 11:32:00 27.0 Below low normal 36.0-45.2 (%) Final MCV 12/21/2022 11:32:00 75.4 81.5-97.5 (fL) Final MCH 12/21/2022 11:32:00 20.9 27.0-34.0 (pg) Final MCHC 12/21/2022 11:32:00 27.8 32.0-36.0 (g/dL) Final RDW 12/21/2022 11:32:00 21.9 11.5-15.5 (%) Final Platelets 12/21/2022 11:32:00 215 140-400 (K/uL) Final MPV 12/21/2022 11:32:00 10.3 6.6-11.1 (fL) Final Nucleated erythrocytes/100 leukocytes [Ratio] in Blood by Automated count 12/21/2022 11:32:00 0 <=0 (/100 WBCs) Final Performing Location LABORATORY [facility] - [address] [facility] [address]
--- OUTSIDE RECORDS SUMMARY | 2023-03-19 22:32 | External Medical Summary ---
Author Name Unknown Address Unknown Organization K01:LABORATORY [facility] - [facility] [place] [address] [facility] [address] Laboratory Report Ordering Provider Test Date Status ROBERTO MONTEZ 12/21/2022 01:25:00 Final Observation Date Value Abnormality Reference (Units ) Status BUN 12/21/2022 01:25:00 31 Above high normal 6-20 (mg/dL) Final Creatinine 12/21/2022 01:25:00 2.1 Above high normal 0.5-1.0 (mg/dL) Final Glomerular filtration rate/1.73 sq M.predicted [Volume Rate/Area] in Serum, Plasma or Blood by Creatinine-based formula (CKD-EPI) 12/21/2022 01:25:00 28 Below low normal >=60 (mL/min) Final eGFR is calculated based on the CKD-EPI 2020 equation SODIUM 12/21/2022 01:25:00 132 Below low normal 135 -146 (mmol/L) Final Potassium 12/21/2022 01:25:00 3.0 Below low normal 3.5 -5.1 (mmol/L) Final Cl 12/21/2022 01:25:00 97 Below low normal 98- 107 (mmol/L) Final CO2 12/21/2022 01:25:00 22 22-32 (mmo l/L) Final Anion gap 12/21/2022 01:25:00 13 7-15 (mmol /L) Final Glucose 12/21/2022 01:25:00 118 70-120 (mg /dL) Final Calcium 12/21/2022 01:25:00 7.9 Below low normal 8.4 -10.2 (mg/dL) Final Performing Location LABORATORY [facility] [place] - [address] [facility] [id number]
--- OUTSIDE RECORDS SUMMARY | 2023-03-19 22:32 | External Medical Summary ---
Author Name Unknown Address Unknown Organization [id number]:LABORATORY [facility] [place] - [address] [facility] [id number] Laboratory Report Ordering Provider Test Date Status ROBERTO MONTEZ 12/21/2022 01:25:00 Final Observation Date Value Abnormality Reference (Units ) Status Lipase 12/21/2022 01:25:00 37 13-60 (U/L ) Final Performing Location LABORATORY [facility] - [address] [facility] [id number]
--- OUTSIDE RECORDS SUMMARY | 2023-03-19 22:32 | External Medical Summary ---
Author Name Unknown Address Unknown Organization [id number]:LABORATORY [facility] [place] - [address] [facility] [address] Laboratory Report Ordering Provider Test Date Status ROBERTO MONTEZ 12/21/2022 04:33:00 Final Observation Date Value Abnormality Reference (Units ) Status Lactic Acid 12/21/2022 04:33:00 1.1 0.4-2.0 (mmol/L) Final Performing Location LABORATORY [facility] [place] - [address] [facility] [address]
--- OUTSIDE RECORDS SUMMARY | 2023-03-19 22:32 | External Medical Summary ---
Author Name Unknown Address Unknown Organization K01:[facility] [place] [address] [place] [address] Laboratory Report Ordering Provider Test Date Status ROBERTO MONTEZ 12/21/2022 04:33:00 Final Observation Date Value Abnormality Reference (Units ) Status Calcium.ionized [Moles/volume] in Blood by Ion-selective membrane electrode (ISE) 12/21/2022 04:33:00 1.07 Below low normal 1.13-1.32 (mmol/L) Final Performing Location [facility] [place] [address] [place] [address]
--- OUTSIDE RECORDS SUMMARY | 2023-03-19 22:32 | External Medical Summary ---
Author Name Unknown Address Unknown Organization [id number]:[facility] [place] - [address] [facility] [address] Laboratory Report Ordering Provider Test Date Status ROBERTO MONTEZ 12/21/2022 01:25:00 Final Observation Date Value Abnormality Reference (Units ) Status Lactic Acid 12/21/2022 01:25:00 1.6 0.4-2.0 (mmol/L) Final Performing Location LAB[facility]ORY [facility] [place] - [address] [facility] [address]
--- OUTSIDE RECORDS SUMMARY | 2023-03-19 22:32 | External Medical Summary ---
Author Name Unknown Address Unknown Organization K01:LABORATORY [facility] [place] - [address] [place] [address] Laboratory Report Ordering Provider Test Date Status ROBERTO MONTEZ 12/21/2022 04:33:00 Final Observation Date Value Abnormality Reference (Units ) Status Albumin 12/21/2022 04:33:00 3.0 Below low normal 3.8-5.0 (g/dL) Final AST (Aspartate aminotransferase) 12/21/2022 04:33:00 13 10-35 (U/L) Final Alk Phos 12/21/2022 04:33:00 69 35-130 (U/L) Final ALT (Alanine aminotransferase) 12/21/2022 04:33:00 10 10-35 (U/L) Final Bilirubin, Total 12/21/2022 04:33:00 2.0 Above high normal <=1.2 (mg/dL) Final Bilirubin, Direct 12/21/2022 04:33:00 0.4 Above high normal 0.0-0.3 (mg/dL) Final Protein 12/21/2022 04:33:00 6.0 6.0-8.3 (g/dL) Final Performing Location LABORATORY [facility] [place] - [address] [place] [address]
--- OUTSIDE RECORDS SUMMARY | 2023-03-19 22:32 | External Medical Summary ---
Author Name Unknown Address Unknown Organization K01:LABORATORY [facility] [place] - [facility] [address] [facility] [address] Laboratory Report Ordering Provider Test Date Status ROBERTO MONTEZ 12/21/2022 11:32:00 Final Observation Date Value Abnormality Reference (Units ) Status BUN 12/21/2022 11:32:00 27 Above high normal 6-20 (mg/dL) Final Creatinine 12/21/2022 11:32:00 1.6 Above high normal 0.5-1.0 (mg/dL) Final Glomerular filtration rate/1.73 sq M.predicted [Volume Rate/Area] in Serum, Plasma or Blood by Creatinine-based formula (CKD-EPI) 12/21/2022 11:32:00 38 Below low normal >=60 (mL/min) Final eGFR is calculated based on the CKD-EPI 2020 equation SODIUM 12/21/2022 11:32:00 133 Below low normal 135 -146 (mmol/L) Final Potassium 12/21/2022 11:32:00 4.0 3.5-5.1 (m mol/L) Final Cl 12/21/2022 11:32:00 99 98-107 (mm ol/L) Final CO2 12/21/2022 11:32:00 23 22-32 (mmo l/L) Final Anion gap 12/21/2022 11:32:00 11 7-15 (mmol /L) Final Glucose 12/21/2022 11:32:00 153 Above high normal 70 -120 (mg/dL) Final Calcium 12/21/2022 11:32:00 7.9 Below low normal 8.4 -10.2 (mg/dL) Final Performing Location LABORATORY [facility] [place] - [address] [facility] [address]
--- OUTSIDE RECORDS SUMMARY | 2023-03-19 22:32 | External Medical Summary ---
Author Name Unknown Address Unknown Organization K01:LABORATORY C - [address] [facility] [address] Laboratory Report Ordering Provider Test Date Status MELIDAROBERTO 12/21/2022 01:25:00 Final Observation Date Value Abnormality Reference (Units ) Status Phosphate 12/21/2022 01:25:00 3.1 2.5-4.8 (m g/dL) Final Performing Location LABORATORY [facility] - [address] [facility] [address]
--- OUTSIDE RECORDS SUMMARY | 2023-03-19 22:32 | External Medical Summary ---
Author Name Unknown Address Unknown Organization K01:LABORATORY [facility] [place] - [address] [facility] [address] Laboratory Report Ordering Provider Test Date Status ROBERTO MONTEZ 12/21/2022 06:15:51 Final ADMITTED patient Observation Date Value Abnormality Reference (Units ) Status Adenovirus DNA [Presence] in Nasopharynx by EVELIO with non-probe detection 12/21/2022 06:15:51 Negative Negative Final Human coronavirus 229E RNA [Presence] in Nasopharynx by EVELIO with non-probe detection 12/21/2022 06:15:51 Negative Negative Final Human coronavirus HKU1 RNA [Presence] in Nasopharynx by EVELIO with non-probe detection 12/21/2022 06:15:51 Negative Negative Final Human coronavirus NL63 RNA [Presence] in Nasopharynx by EVELIO with non-probe detection 12/21/2022 06:15:51 Negative Negative Final Human coronavirus OC43 RNA [Presence] in Nasopharynx by EVELIO with non-probe detection 12/21/2022 06:15:51 Negative Negative Final SARS-CoV-2 (COVID-19) RNA [Presence] in Nasopharynx by EVELIO with non-probe detection 12/21/2022 06:15:51 Negative Negative Final Human metapneumovirus RNA [Presence] in Nasopharynx by EVELIO with non-probe detection 12/21/2022 06:15:51 Negative Negative Final Rhinovirus+Enterovirus RNA [Presence] in Nasopharynx by EVELIO with non-probe detection 12/21/2022 06:15:51 Negative Negative Final Influenza virus A RNA [Presence] in Nasopharynx by EVELIO with non-probe detection 12/21/2022 06:15:51 Negative Negative Final Influenza virus B RNA [Presence] in Nasopharynx by EVELIO with non-probe detection 12/21/2022 06:15:51 Negative Negative Final Parainfluenza virus 1 RNA [Presence] in Nasopharynx by EVELIO with non-probe detection 12/21/2022 06:15:51 Negative Negative Final Parainfluenza virus 2 RNA [Presence] in Nasopharynx by EVELIO with non-probe detection 12/21/2022 06:15:51 Negative Negative Final Parainfluenza virus 3 RNA [Presence] in Nasopharynx by EVELIO with non-probe detection 12/21/2022 06:15:51 Negative Negative Final Parainfluenza virus 4 RNA [Presence] in Nasopharynx by EVELIO with non-probe detection 12/21/2022 06:15:51 Negative Negative Final Respiratory syncytial virus RNA [Presence] in Nasopharynx by EVELIO with non-probe detection 12/21/2022 06:15:51 Negative Negative Final Bordetella pertussis.pertussis toxin promoter region [Presence] in Nasopharynx by EVELIO with non-probe detection 12/21/2022 06:15:51 Negative Negative Final Chlamydophila pneumoniae DNA [Presence] in Nasopharynx by EVELIO with non-probe detection 12/21/2022 06:15:51 Negative Negative Final Mycoplasma pneumoniae DNA [Presence] in Nasopharynx by EVELIO with non-probe detection 12/21/2022 06:15:51 Negative Negative Final Bordetella parapertussis [id number] DNA [Presence] in Nasopharynx by EVELIO with non-probe detection 12/21/2022 06:15:51 Negative Negative Final
The primers that detect Rhinovirus may cross react with some Enterorviruses. The validation of bronchial specimens, tracheal aspirates, and throats for this assay was developed and performance characteristics determined by [employer]. The validation of alternate specimen types has not been cleared or approved by the U.S. Food and Drug Administration (FDA). It has been determined that such clearance or approval is not necessary. Performing Location LABORATORY [place] [address] [facility] [address]
--- OUTSIDE RECORDS SUMMARY | 2023-03-19 22:32 | External Medical Summary ---
Author Name Unknown Address Unknown Organization K01:LABORATORY [facility] [place] - [address] [facility] [address] Laboratory Report Ordering Provider Test Date Status ROBERTO MONTEZ 12/21/2022 11:32:00 Final Observation Date Value Abnormality Reference (Units ) Status Magnesium 12/21/2022 11:32:00 2.9 Above high normal 1. 5-2.6 (mg/dL) Final Performing Location LABORATORY C - [address] [facility] [address]
--- OUTSIDE RECORDS SUMMARY | 2023-03-19 22:32 | External Medical Summary ---
Author Name Unknown Address Unknown Organization K01:LABORATORY [facility] [place] - [facility] [address] [facility] [address] Laboratory Report Ordering Provider Test Date Status ROBERTO MONTEZ 12/21/2022 01:25:00 Final Observation Date Value Abnormality Reference (Units) Status Clot formation [Time] in Blood by Thromboelastography 12/21/2022 01:25:00 3.2 2.5-8.3 (minutes) Final Clot strength in Blood by Thromboelastography 12/21/2022 01:25:00 1.0 0.5-3.7 (minutes) Final Clot angle in Blood by Thromboelastography 12/21/2022 01:25:00 75.7 46.8-78.4 (degrees) Final Maximum clot firmness [Length] in Blood by Thromboelastography 12/21/2022 01:25:00 73.2 Above high normal 50.6-72.5 (mm) Final Coagulation index in Blood by Thromboelastography 12/21/2022 01:25:00 4.4 Above high normal -3.0-3.0 Final Clot Lysis [Length fraction] in Blood by Thromboelastography --30 minutes post maximum clot amplitude 12/21/2022 01:25:00 0.4 0.0-7.5 (%) Final This is an appended report. These results have been appended to a previously preliminary verified report. Performing Location LABORATORY [facility] [place] - [address] [facility] [address]
--- OUTSIDE RECORDS SUMMARY | 2023-03-19 22:32 | External Medical Summary ---
Author Name Unknown Address Unknown Organization K01:LABORATORY [facility] - [address] [facility] [address] Laboratory Report Ordering Provider Test Date Status ROBERTO MONTEZ 12/21/2022 01:25:00 Final Observation Date Value Abnormality Reference (Units ) Status CK-MB 12/21/2022 01:25:00 1.6 0.0-4.3 (n g/mL) Final Performing Location LABORATORY [facility] - [address] [place] [address]
--- OUTSIDE RECORDS SUMMARY | 2023-03-19 22:32 | External Medical Summary ---
Author Name Unknown Address Unknown Organization K01:LABORATORY [facility] - [address] [place] [address] Laboratory Report Ordering Provider Test Date Status VILMA HERNANDEZ 12/21/2022 11:32:00 Final Observation Date Value Abnormality Reference (Units ) Status T4, Free 12/21/2022 11:32:00 1.7 0.9-1.7 (n g/dL) Final Performing Location LABORATORY [facility] - [address] [place] [address]
--- OUTSIDE RECORDS SUMMARY | 2023-03-19 22:33 | External Medical Summary ---
Author Name Unknown Address Unknown Organization K1G:LABORATORY [facility] - [address] [place] [phone] Laboratory Report Ordering Provider Test Date Status REJI FELIZ JR 12/20/2022 17:01:03 Final Observation Date Value Abnormality Reference (Units ) Status Nucleated erythrocytes/100 leukocytes [Ratio] in Blood by Automated count 12/20/2022 17:01:03 Final Performing Location LABORATORY [facility] - [address] [place] [phone]
--- OUTSIDE RECORDS SUMMARY | 2023-03-19 22:33 | External Medical Summary | Summary of Care ---
Author Name Unknown Organization [facility] Address [address] [place] [address] Phone [phone] Care Team Providers Care Removable Prosthodontist Name Role Phone Reggie Wei DO Primary Care Provid er Reason for Visit * Reason Onset Date Comments Medication Refill 11/22/2022 Encounter Details Date Type Department Care Team Description 11/22/[address] [phone] Reggie Wei DO [address] [place] [phone] MEDICATION USE AGREEMENT; DDD (degenerative disc disease), cervical; DDD (degenerative disc disease), thoracic; DDD (degenerative disc disease), lumbar Allergies Active Allergy Reactions Severity Noted Date Comments Hydromorphone Hcl Itching Medium 11/09/2015 Environmental Low 05/04/2010 Pollen -asthmatic attacks documented as of this encounter (statuses as of 11/23/2022) Medications Medication Sig Dispensed Refills Start Date [...] for Pain, Moderate. 240 Tablet 0 11/23/2022 Active traMADol HCl 50 MG Oral Tablet (Ultram)Indications :MEDICATION USE AGREEMENT,DDD (degenerative disc disease), cervical,DDD (degenerative disc disease), thoracic,DDD (degenerative disc disease), lumbar Take 2 Tablets by mouth every 6 hours as needed for Pain, Moderate. 240 Tablet 0 10/24/2022 11/23/19 Discontinu ed(Refill) documented as of this encounter (statuses as of 11/23/2022) Active Problems Problem Noted Date Other cirrhosis of liver 03/16/2022 Raynaud's disease [...] typical SLE sx- negative/normal C3/C4, SSA/SSB, centromere, TOOL CARRIER/Sm, ESR,CRP. dsDNA borderline. [place] unlikely SLE. o 2012: Seen again by Rheum- Dr. Jung- photosensitive rash and raynauds. Borderline dsDNA. [place] likely SLE, though possible AIH could explain (+) MARY. HCQ discussed but wanted to avoid by GI. 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 Authorizing Provider: REGGIE WEI * Telephone Encounter - Mary Topete [facility] - 11/23/2022 9:34 AM EDTPending Prescriptions: Disp Refills traMADol HCl 50 MG Oral Tablet (Ultram) 240 Ta*0 Sig: Take 2 Tablets by mouth every 6 hours as needed for Pain, Moderate. * Telephone Encounter - Mary Topete [facility] - 11/23/2022 9:32 AM EDT I have reviewed the patients controlled substance dispensing history in the Prescription Drug Monitoring Program in compliance with the [facility] regulations before prescribing a controlled substance. PDMP checked on 11/23/2022. Pending Prescriptions: Disp Refills traMADol HCl 50 MG Oral Tablet (Ultram) 240 Ta*0 Sig: Take 2 Tablets by mouth every 6 hours as needed for Pain, Moderate. Last Visit: 10/04/2022 (in office), Visit date not found (telemedicine) Next Visit: Visit date not found Date medication was last filled: 10/24/22 Date medication is due for refill: 11/22/22 Pharmacy: [id number] [id number] Is [...] in Results Review. Please approve if appropriate. Thanks, Mary Topete Clinical Pharmacist [facility] ([facility]) (Formerly Telepharmacy) [phone] 11/23/2022, 9:33 AM documented in this encounter Plan of Treatment Upcoming Encounters Date Type Specialty Care Team Description 01/04/2023 Telemedicine Endocrinology Gilbert Hawkins MD [address], [place] [phone] 01/09/2023 Office Visit Ophthalmology Fran French DO [address], [place] [phone] 03/16/2023 Office Visit Pulmonary Twin Hayden MD [address] [place] [address] Scheduled Procedures Name Priority Associated [...] 01/01/2019, 07/09, 05/06/2013, Additional history exists Depression Screening, Annual for Pts 12 and Over 09/07/2022 09/07/2021 HbA1c 09/20/2022 09/20/2021, 11/09, 02/28/2019, [...] this encounter Medical Devices Implanted Type Area Zone Manager Device Identifier Shelf Expiration Date Model / Serial / Lot Lens 22.0 Sa60at - [id number] Implanted:Qty: 1 on 10/15/2012 at OR [facility] Left: Eye [employer] 10/07/2016 SA60AT / [id number] / Lens 22.0 Sa60at - [id number] Implanted:Qty: 1 on 11/29/2012 at [place] [facility] [place] Right: Eye [employer] 03/31/2017 SA60AT / [id number] / Duraclip 11mm Repositionable - [id number] Implanted:Qty: 1 on 05/11/2022 by Jeffrey Weber MD at ENDOSCOPY [facility] [place] [employer] [id number] 01/29/2024 [id number] / / [id number] documented as of this encounter Visit [...] the patient have Health Care Power of Traffic Attendant? No Full Code 12/06/2019 4:21 AM 12/11/2019 [...] the patient have Health Care Power of Traffic Attendant? No Care Teams Removable Prosthodontist Relationship Specialty Start Date End Date Reggie Wei, [place] [address] PCP - General Internal Medicine 03/08/22 documented as of this encounter
--- OUTSIDE RECORDS SUMMARY | 2023-03-19 22:33 | External Medical Summary ---
Author Name Unknown Address Unknown Organization K1G:LABORATORY [facility] - [address] [place] [phone] Laboratory Report Ordering Provider Test Date Status REJI FELIZ JR 12/20/2022 17:01:03 Final Observation Date Value Abnormality Reference (Units ) Status Troponin T 12/20/2022 17:01:03 15 Above high normal < =14 (ng/L) Final Performing Location LABORATORY [facility] - [address] [place] [phone]
--- OUTSIDE RECORDS SUMMARY | 2023-03-19 22:33 | External Medical Summary ---
Author Name Unknown Address Unknown Organization K01:[place] [facility] [place] [address] [facility] [address] Laboratory Report Ordering Provider Test Date Status REJI FELIZ JR 12/20/2022 17:01:03 Final Less than 0.5 ng/mL: Low ris k for progression to sepsis. Review patients condition for localized infections.

0.5 to 2.0 ng/mL: Intermediate risk for progresion to sepsis. Review underlying conditions. Recommend repeat PCT after 6 hours has elapsed.

Greater than 2.0 ng/mL: high risk for progression to sepsis unless other causes are known. Observation Date Value Abnormality Reference (Units ) Status Procalcitonin [Mass/volume] in Serum or Plasma by Immunoassay 12/20/2022 17:01:03 0.18 Above high normal <0.10 (ng/mL) Final Performing Location [facility] [facility] [place] [address] [place] [address]
--- OUTSIDE RECORDS SUMMARY | 2023-03-19 22:33 | External Medical Summary ---
Author Name Unknown Address Unknown Organization K1G:LABORATORY [address] [address] Laboratory Report Ordering Provider Test Date Status REJI FELIZ JR 12/20/2022 17:01:03 Final Observation Date Value Abnormality Reference (Units ) Status Bacteria identified in Specimen by Culture 12/20/2022 17:01:03 No growth Final Test: Culture, Blood
Daphne doshi Source: Blood, Venous
Specimen Type: Blood
Specimen Date: 12/20/2022 5:01 PM
Result Date: 12/25/2022 6:01 PM
Result Status: Final result
Resulting Lab: LABORATORY [facility]
[address] [place] [address]
[facility] [phone]

CULTURE

No growth

null Performing Location LABORATORY [facility] - [address] [place] [phone]
--- OUTSIDE RECORDS SUMMARY | 2023-03-19 22:33 | External Medical Summary | Summary of Care ---
Author Name Unknown Organization [facility] Address [address] [place] [address] Phone [phone] Care Team Providers Care Inventory Analyst Name Role Phone Reggie Eddy DO Primary Care Provid er Reason for Visit * Reason Comments eRx-Medication Refill Encounter Details Date Type Department Care Team Description 10/24/[address] [phone] Reggie Eddy DO [address] [place] [address] MEDICATION USE AGREEMENT; DDD (degenerative disc disease), cervical; DDD (degenerative disc disease), thoracic; DDD (degenerative disc disease), lumbar Allergies Active Allergy Reactions Severity Noted Date Comments Hydromorphone Hcl Itching Medium 11/09/2015 Environmental Low 05/04/2010 Pollen -asthmatic attacks documented as of this encounter (statuses as of 10/26/2022) Medications Medication Sig Dispensed Refills Start Date [...] on 04/18/2022 Calcium Citrate 200 MG Oral TabletIndications:Hy pocalcemia [...] swallow capsule.. 30 Capsule 5 05/20/2022 Active Nadolol 40 MG Oral Tablet (Corgard)Indications :Rectal varices,Esophageal varices in cirrhosis (HCC) Take 1 Tablet by mouth in the morning. 90 Tablet 1 06/03/2022 Active Omeprazole 20 MG Oral Capsule Delayed Release (PriLOSEC)Indication s: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 Take 1 Capsule by mouth in the morning. 90 Capsule 1 06/20/2022 Active Gabapentin 300 MG Oral Capsule (Neurontin)Indicatio ns:DDD (degenerative disc disease), cervical,DDD (degenerative disc disease), thoracic,DDD (degenerative disc disease), lumbar Take 2 Capsules by mouth at bedtime. Take one cap by mouth at bedtime for two weeks, then may increase to 2 caps at bedtimes 180 Capsule 1 06/20/2022 Active Levothyroxine Sodium 150 MCG Oral Tablet (Levoxyl)Indications :Postoperative hypothyroidism Take 1 Tablet by mouth daily first thing in the morning. (at least 30 min prior to breakfast or other meds) 90 Tablet 1 06/20/2022 Active Fluticasone Furoate-Vilanterol 200-25 MCG/ACT [...] mL before bedtime. 3600 mL 09/09/2022 Active Mycophenolate Mofetil 500 MG Oral Tablet (Cellcept)Indication [...] at bedtime. 90 Tablet 1 09/30/2022 Active traMADol HCl 50 MG Oral Tablet (Ultram)Indications: MEDICATION USE AGREEMENT,DDD (degenerative disc disease), cervical,DDD (degenerative disc disease), thoracic,DDD (degenerative disc disease), lumbar Take 2 Tablets by mouth every 6 hours as needed for Pain, Moderate. 240 Tablet 0 10/24/2022 Active documented as of this encounter (statuses as of 10/26/2022) Active Problems Problem Noted Date Other cirrhosis [...] o Lost to follow up- moved to [place] o 2009: Dx with AIH: incomplete cirrhosis found incidentally at time of cholecystectomy when liver bx obtained; grade 1 varices; MARY , ASMA positive - Tx pred initially then Imuran 08/19 then MMF in 08/20 when she developed ascites o 2010: Rheum exam- not typical SLE sx- negative/normal C3/C4, SSA/SSB, centromere, NON DESTRUCTIVE TESTING SUPERVISOR/Sm, ESR,CRP. dsDNA borderline. [place] unlikely SLE. o 2012: Seen again by Rheum- Dr. Jung- photosensitive rash and raynauds. Borderline dsDNA. [place] likely SLE, though possible AIH could explain (+) MARY. HCQ discussed but wanted to avoid by GI. 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 Serologic abnormality 07/05/2010 Esophageal reflux 05/19/2010 Postoperative hypothyroidism 01/23/2002 HISTORY OF TOBACCO USE 01/23/2002 Autoimmune hepatitis documented as of this encounter (statuses as of 10/26/2022) Resolved Problems Problem Noted Date Resolved Date [...] as of this encounter (statuses as of 10/26/2022) Immunizations Name Administration Dates Next Due HEP [...] encounter Miscellaneous Notes * Telephone Encounter - Rene Goldman [facility] - 10/26/2022 9:10 AM EDTRefused Prescriptions: Disp Refills traMADol HCl 50 MG Oral Tablet (Ultram) 120 Ta*0 Sig: TAKE 2 TABLETS BY MOUTH EVERY 6 HOURS NEEDED FOR MODERATE PAINRefused By: RENE GOLDMAN for Refusal: Duplicate RequestReason for Refusal Comment: sent 10/24/22 to [facility] documented in this encounter Plan of Treatment Upcoming Encounters Date Type Specialty Care Team Description 11/01/2022 Office Visit Family Medicine Reggie Eddy, DO [address] [place] [address] 11/09/2022 Hospital Encounter Surgery Wong Cornelius DO [address] [place] [address] 11/09/2022 Surgery Surgery Wong Cornelius DO [address] [place] [address] INJECTION SPINE LUMBAR OR SACRAL 01/04/2023 Telemedicine Endocrinology Gilbert Hawkins MD [address] [place] [address] 01/09/2023 Office Visit Ophthalmology Fran French DO [address] [place] [address] Scheduled Procedures Name Priority Associated Diagnoses Date/Ti me INJECTION SPINE LUMBAR OR SACRAL Lumbar radiculopathy 11/09/2022 1:20 PM EDT ESOPHAGOGASTRODUODENOSCOPY ( EGD), FLEXIBLE, TRANSORAL, [...] 1983 Zoster Vaccines (1 of 2) 1984 Pneumococcal Vaccine: Pediatrics (0 to 5 Years) and At-Risk Patients (6 to 64 Years) (2 - PCV) 12/25/2013 12/25/2012 *ADVANCE DIRECTIVE NOT ON FILE 07/09/2020 Depression Screening, Annual for Pts 12 and Over 09/07/2022 09/07/2021 HbA1c 09/20/2022 09/20/2021, 11/09, 02/28/2019, Additional history exists Influenza Vaccine (FLU shot) (#1) 2022 TSH 04/01/2023 04/01/2022, 01/09, 06/10/2020, Additional history exists O2 ASSESSMENT COMPLETED IN PAST YEAR FOR COPD 05/11/2023 05/11/2022 Mammogram 06/21/2023 06/20/2022, 04/11, 04/30/2019, Additional history exists Pap Smear 01/02/2024 01/01/2019, 07/09, 05/06/2013, Additional history exists Lipid Panel 02/29/2024 02/28/2019, [...] this encounter Medical Devices Implanted Type Area Information Technology Intern Device Identifier Shelf Expiration Date Model / Serial / Lot Lens 22.0 Sa60at - [id number] Implanted:Qty: 1 on 10/15/2012 at OR [facility] Left: Eye [employer] 10/07/2016 SA60AT / [id number] / Lens 22.0 Sa60at - [id number] Implanted:Qty: 1 on 11/29/2012 [place] [facility] [place]: Eye [employer] 03/31/2017 SA60AT / [id number] / Duraclip 11mm Repositionable - [id number] Implanted:Qty: 1 on 05/11/2022 by Jeffrey Weber MD [place] [facility] [place] [employer] [id number] 01/29/2024 [id number] / / [id number] documented as of this encounter Visit Diagnoses Diagnosis MEDICATION USE AGREEMENT DDD (degenerative disc disease), cervical Degeneration of cervical intervertebral disc DDD (degenerative disc disease), thoracic Degeneration of thoracic or thoracolumbar intervertebral disc DDD (degenerative disc disease), lumbar Degeneration of lumbar or lumbosacral intervertebral disc Lumbar radiculopathy Thoracic or lumbosacral neuritis or radiculitis, unspecified documented in this encounter Advance Directives Latest [...] the patient have Health Care Power of Leak Gang Supervisor? No Full Code 12/06/2019 4:21 AM 12/11/2019 [...] the patient have Health Care Power of Leak Gang Supervisor? No Care Teams Inventory Analyst Relationship Specialty Start Date End Date Reggie Eddy, [place] [address] PCP - General Internal Medicine 03/08/22 documented as of this encounter
--- OUTSIDE RECORDS SUMMARY | 2023-03-19 22:33 | External Medical Summary ---
Author Name Unknown Address Unknown Organization K1G:LABORATORY [facility] - [address] [facility] [address] Laboratory Report Ordering Provider Test Date Status REJI FELIZ JR 12/20/2022 17:01:03 Final Observation Date Value Abnormality Reference (Units) Status Body temperature 12/20/2022 17:01:03 37.0 (C) Final pH of Venous blood 12/20/2022 17:01:03 7.419 7.320-7.430 (units) Final Carbon dioxide [Partial pressure] in Venous blood 12/20/2022 17:01:03 41.5 40.0-60.0 (mmHg) Final Oxygen [Partial pressure] in Venous blood 12/20/2022 17:01:03 13.2 Below low normal 25.0-50.0 (mmHg) Final Base excess, Capillary 12/20/2022 17:01:03 2.2 Above high normal -2.0-2.0 (mmol/L) Final Hemoglobin [Mass/volume] in Blood by Oximetry 12/20/2022 17:01:03 5.4 Below lower panic limits 12.0-15.3 (g/dL) Final Oxyhemoglobin, Venous (FO2HB) 12/20/2022 17:01:03 13.3 Below low normal 40.0-85.0 (% total Hgb) Final Carboxyhemoglobin 12/20/2022 17:01:03 2.7 Above high normal <=1.5 (% total Hgb) Final Smokers: 0-9.0 % Methemoglobin 12/20/2022 17:01:03 1.9 Above h igh normal <=1.5 (% total Hgb) Final Deoxyhemoglobin/Hemoglo bin.total in Venous blood 12/20/2022 17:01:03 82.1 (% total Hgb) Final Oxygen content in Venous blood 12/20/2022 17:01:03 1.0 Below low normal 7.0-18.0 (%vol) F inal Bicarbonate, Venous, POC (i-STAT) 12/20/2022 17:01:03 26.9 23.0-31.0 (mmol/L) Final Performing Location LABORATORY [facility] - [address] [facility] [address]
--- OUTSIDE RECORDS SUMMARY | 2023-03-19 22:33 | External Medical Summary | Summary of Care ---
Author Name Unknown Organization [facility] Address [address] [place] [address] Phone [phone] Care Team Providers Care Vat House Supervisor Name Role Phone Reggie Eddy DO Primary Care Provid er Reason for Visit * Reason Onset Date Comments Medication Refill 10/25/2022 Encounter Details Date Type Department Care Team Description 10/25/[address] [phone] Reggie Eddy DO [address] [place] [phone] MEDICATION USE AGREEMENT; DDD (degenerative disc [...] when liver bx obtained; grade 1 varices; AM[place] , ASMA positive - Tx pred initially then Imuran 08/19 then MMF in 08/20 when she developed ascites o 2010: Rheum exam- not typical SLE sx- negative/normal C3/C4, SSA/SSB, centromere, DIRECTOR OF RADIO SERVICES/Sm, ESR,CRP. dsDNA borderline. [place] unlikely SLE. o 2012: Seen again by Rheum- Dr. Jung- photosensitive rash and raynauds. Borderline dsDNA. [place] likely SLE, though possible AIH could explain (+) MARY. HCQ discussed but wanted to avoid by GI. o [phone]: multiple hospitalizations for ascites; returned to Rheum [...] No 12/23/2019 documented as of this encounter Plan of Treatment Upcoming Encounters Date Type Specialty Care Team Description 11/01/2022 Office Visit Family Medicine Surjit Reggie Fitch, DO [address] [place], [place] [phone] 11/09/2022 Hospital Encounter Surgery Wong Cornelius, DO [address] [place] [address] 11/09/2022 Surgery Surgery Wong Cornelius, DO [address] [place] [address] INJECTION SPINE LUMBAR OR SACRAL 01/04/2023 Telemedicine Endocrinology Gilbert Hawkins MD [address] [place] [address] 01/09/2023 Office Visit Ophthalmology Fran French, [address] [place] [address] Scheduled Procedures Name Priority Associated [...] this encounter Medical Devices Implanted Type Area Mortgage Loan Assistant Device Identifier Shelf Expiration Date Model / Serial / Lot Lens 22.0 Sa60 - [id number] Implanted:Qty: 1 on 10/15/2012 at OR [facility] Left: Eye [employer] 10/07/2016 SA60AT / [id number] / Lens 22.0 Sa60at - [id number] Implanted:Qty: 1 on 11/29/2012 at OR [facility] [place] Right: Eye [employer] 03/31/2017 SA60AT / [id number] / Duraclip 11mm Repositionable - [id number] Implanted:Qty: 1 on 05/11/2022 by Jeffrey Weber MD at ENDOSCOPY [facility] [place] [employer] [id number] 01/29/2024 [id number] / / [id number] documented as of this encounter Visit [...] the patient have Health Care Power of Metal Cans Supervisor? No Full Code 12/06/2019 4:21 AM [...] the patient have Health Care Power of Metal Cans Supervisor? No Care Teams Vat House Supervisor Relationship Specialty Start Date End Date Reggie Eddy DO [address] [place] [phone] PCP - General Internal Medicine 03/08/22 documented as of this encounter
--- OUTSIDE RECORDS SUMMARY | 2023-03-19 22:33 | External Medical Summary ---
Author Name Unknown Address Unknown Organization K1G:LABORATORY [address] [address] Laboratory Report Ordering Provider Test Date Status REJI FELIZ JR 12/20/2022 17:01:03 Final Observation Date Value Abnormality Reference (Units ) Status Bacteria identified in Specimen by Culture 12/20/2022 17:01:03 No growth Final Test: Culture, Blood (site 2 )
Specimen Source: Blood, Venous
Specimen Type: Blood
Specimen Date: 12/20/2022 5:01 PM
Result Date: 12/25/2022 6:01 PM
Result Status: Final result
Resulting Lab: LABORATORY [facility]
[address] [place] [address]
[facility] [phone]

CULTURE

No growth

null Performing Location LABORATORY [facility] - [address] [place] [phone]
--- OUTSIDE RECORDS SUMMARY | 2023-03-19 22:33 | External Medical Summary ---
Author Name Unknown Address Unknown Organization K1G:LABORATORY [facility] - [address] [place] [phone] Laboratory Report Ordering Provider Test Date Status REJI FELIZ 12/20/2022 17:01:03 Final Observation Date Value Abnormality Reference (Units ) Status WBC, Total 12/20/2022 17:01:03 10.97 Above high normal 4.00-10.80 (K/uL) Final RBC 12/20/2022 17:01:03 2.67 3.85-5.15 (M/uL) Final Hemoglobin 12/20/2022 17:01:03 5.1 Below lower panic limits 12.0-15.3 (g/dL) Final HCT 12/20/2022 17:01:03 18.2 Below low normal 36.0-45.2 (%) Final MCV 12/20/2022 17:01:03 68.2 81.5-97.5 (fL) Final MCH 12/20/2022 17:01:03 19.1 27.0-34.0 (pg) Final MCHC 12/20/2022 17:01:03 28.0 32.0-36.0 (g/dL) Final RDW 12/20/2022 17:01:03 20.2 11.5-15.5 (%) Final Platelets 12/20/2022 17:01:03 231 140-400 (K/uL) Final MPV 12/20/2022 17:01:03 11.1 6.6-11.1 (fL) Final Performing Location LABORATORY [facility] - [address] [place] [phone]
--- OUTSIDE RECORDS SUMMARY | 2023-03-19 22:33 | External Medical Summary ---
Author Name Unknown Address Unknown Organization K1G:LABORATORY [facility] - [address] [place] [id number] Laboratory Report Ordering Provider Test Date Status REJI FELIZ JR 12/20/2022 17:01:03 Final Observation Date Value Abnormality Reference (Units ) Status Bilirubin, Direct 12/20/2022 17:01:03 0.2 0. 0-0.3 (mg/dL) Final Performing Location LABORATORY [facility] - [address] [place] [phone]
--- OUTSIDE RECORDS SUMMARY | 2023-03-19 22:33 | External Medical Summary | Summary of Care ---
Author Name Unknown Organization [facility] Address [address] [place] [address] Phone [phone] Care Team Providers Care Business Technology Teacher Name Role Phone Reggie Eddy DO Primary Care Provid er Reason for Visit * Reason Onset Date Comments Medication Refill 10/24/2022 Encounter Details Date Type Department Care Team Description 10/24/[address] [phone] Reggie Eddy DO [address] [place] [address] MEDICATION USE AGREEMENT; DDD (degenerative disc [...] typical SLE sx- negative/normal C3/C4, SSA/SSB, centromere, HE[employer]/Sm, ESR,CRP. dsDNA borderline. [place] unlikely SLE. o 2012: Seen again by Rheum- Dr. Jung- photosensitive rash and raynauds. Borderline dsDNA. [place] likely SLE, though possible AIH could explain (+) MARY. HCQ discussed but wanted to avoid by GI. o [phone]: multiple hospitalizations for ascites; returned to Rheum [...] encounter Miscellaneous Notes * Telephone Encounter - Danny Hollis RPh - 10/26/2022 9:27 AM EDT Refused Prescriptions: Disp Refills traMADol HCl 50 MG Oral Tablet (Ultram) 120 Ta*0 Sig: Take 2 Tablets by mouth every 6 hours as needed for Pain, Moderate.Refused By: DANNY HOLLIS for Refusal: Duplicate Request documented in this encounter Plan of Treatment Upcoming Encounters Date Type Specialty Care Team Description 11/01/2022 Office Visit Family Medicine Reggie Eddy, DO [address] [place], [place] [phone] 11/09/2022 Hospital Encounter Surgery Wong Cornelius DO [address] [place] [address] 11/09/2022 Surgery Surgery Wong Cornelius DO [address] [place] [address] INJECTION SPINE LUMBAR OR SACRAL 01/04/2023 Telemedicine Endocrinology Gilbert Hawkins MD [address] [place] [address] 01/09/2023 Office Visit Ophthalmology Fran French DO [address] [place] [address] Scheduled Procedures Name Priority Associated [...] this encounter Medical Devices Implanted Type Area Battery Builder Device Identifier Shelf Expiration Date Model / Serial / Lot Lens 22.0 Sa60at - [id number] Implanted:Qty: 1 on 10/15/2012 at OR [facility] Left: Eye [employer] 10/07/2016 SA60AT / [id number] / Lens 22.0 Sa60at - [id number] Implanted:Qty: 1 on 11/29/2012 [place] [facility] [place] Eye [employer] 03/31/2017 SA60AT / [id number] / Duraclip 11mm Repositionable - [id number] Implanted:Qty: 1 on 05/11/2022 by Jeffrey Weber MD [place] [facility] [place] [employer] [id number] 01/29/2024 [id number] / / [id number] documented as of this encounter Visit [...] the patient have Health Care Power of Eligibility Clerk? No Full Code 12/06/2019 4:21 AM 12/11/2019 [...] the patient have Health Care Power of Eligibility Clerk? No Care Teams Business Technology Teacher Relationship Specialty Start Date End Date Reggie Eddy, [address] [place] [phone] PCP - General Internal Medicine 03/08/22 documented as of this encounter
--- OUTSIDE RECORDS SUMMARY | 2023-03-19 22:33 | External Medical Summary | Summary of Care ---
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 30 Capsule 5 3 Active Omeprazole 20 MG Oral Capsule Delayed Release (PriLOSEC)Indicatio ns: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 Take 1 Capsule by mouth in the morning. 90 Capsule 1 3 Active Gabapentin 300 MG Oral Capsule [...] the morning. 60 Each 11 3 Active Ambrisentan 10 MG Oral Tablet (Letairis)Indicatio ns:PAH (pulmonary artery hypertension) (HCC) TAKE 1 TABLET BY MOUTH 1 TIME A DAY. DO NOT HANDLE IF . DO NOT SPLIT, CRUSH, OR CHEW. AVOID INHALATION AND CONTACT WITH SKIN OR EYES. 30 Tablet 5 3 Active Tadalafil (PAH) 20 MG Oral Tablet Take 2 Tablets by mouth in the morning. 60 Tablet 9 3 Active Torsemide 20 MG Oral Tablet (Demadex)Indication s:Cirrhosis of liver with ascites, unspecified hepatic cirrhosis type (HCC) Take 2 Tablets by mouth in the morning. TAKE 2 TABLETS BY MOUTH EVERY DAY IN THE MORNING Strength: 20 mg. 180 Tablet 3 3 Active Ipratropium-Albuter ol 0.5-2.5 (3) MG/3ML Inhalation Solution (Duoneb) Inhale 3 mL via nebulizer in the morning and 3 mL at noon and 3 mL in the evening and 3 mL before bedtime. 3600 mL 11 3 Active Mycophenolate Mofetil 500 MG Oral Tablet [...] EVERY DAY 135 Tablet 1 3 Active traZODone HCl 50 MG Oral Tablet (Desyrel)Indication s:Primary insomnia Take 1 Tablet by mouth at bedtime. 90 Tablet 1 3 Active traMADol HCl 50 MG Oral Tablet (Ultram)Indications :MEDICATION USE AGREEMENT,DDD (degenerative disc disease), cervical,DDD (degenerative disc disease), thoracic,DDD (degenerative disc disease), lumbar Take 2 Tablets by mouth every 6 hours as needed for Pain, Moderate. 240 Tablet 0 3 Active Levothyroxine Sodium 150 MCG Oral Tablet (Levoxyl)Indication s:Postoperative hypothyroidism TAKE 1 TABLET BY MOUTH DAILY IN THE MORNING. 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 90 Tablet 1 3 11/24/19 23 Discontinued Levothyroxine Sodium 150 MCG Oral Tablet (Levoxyl)Indication s:Postoperative hypothyroidism Take 1 Tablet by mouth daily first thing in the morning. (at least 30 min prior to breakfast or other meds) 90 Tablet 1 3 11/24/19 23 Discontinued documented as of this encounter [...] o Lost to follow up- moved to [place] o 2009: Dx with AIH: incomplete cirrhosis found incidentally at time of cholecystectomy when liver bx obtained; grade 1 varices; MARY , ASMA positive - Tx pred initially then Imuran 08/19 then MMF in 08/20 when she developed ascites o 2010: Rheum exam- not typical SLE sx- negative/normal C3/C4, SSA/SSB, centromere, SHIPPING/RECEIVING CLERK/Sm, ESR,CRP. dsDNA borderline. [place] unlikely SLE. o 2012: Seen again by Rheum- Dr. Jung- photosensitive rash and raynauds. Borderline dsDNA. [place] likely SLE, though possible AIH could explain (+) MARY. HCQ discussed but wanted to avoid by GI. o [phone]: multiple hospitalizations for ascites; returned to Rheum [...] encounter Miscellaneous Notes * Telephone Encounter - Blayne Moran RPh - 11/23/2022 8:25 AM EDT Signed Prescriptions: Disp Refills Levothyroxine Sodium 150 MCG Oral Tablet (*90 Tab*1 Sig: TAKE 1 TABLET BY MOUTH DAILY IN THE MORNING. (AT LEAST 30 MIN PRIOR TO BREAKFAST OR OTHER MEDS)Authorizing Provider: REGGIE WEI User: BLAYNE MORAN Nadolol 40 MG Oral Tablet (C orgard) 90 Tab*1 Sig: TAKE 1 TABLET BY MOUTH EVERY DAY IN THE MORNINGAuthorizing Provider: REGGIE WEI User: BLAYNE MORANRefused Prescriptions: Disp Refills Mycophenolate Mofetil 500 MG Oral Tablet (*180 Ta*1 Sig: TAKE 1 TABLET BY MOUTH IN THE MORNING AND BEFORE BEDTIMERefused By: BLAYNE MORANReason for Refusal: Too soon documented in this encounter Plan of Treatment Upcoming Encounters Date Type Specialty Care Team Description 01/04/2023 Telemedicine Endocrinology Gilbert Hawkins MD [address] [place] [address] 01/09/2023 Office Visit Ophthalmology Fran French DO [address] [place] [address] 03/16/2023 Office Visit Pulmonary Twin Hayden MD [address] [place] [address] Scheduled Procedures Name Priority Associated [...] this encounter Medical Devices Implanted Type Area Machine Packaging Technician Device Identifier Shelf Expiration Date Model / Serial / Lot Lens 22.0 Sa60at - [id number] Implanted:Qty: 1 on 10/15/2012 at OR [facility] Left: Eye [employer] 10/07/2016 SA60AT / [id number] / Lens 22.0 Sa60at - [id number] Implanted:Qty: 1 [place] 11/29/2012 [place] [facility] [place] Eye [employer] 03/31/2017 SA60AT / [id number] / Duraclip 11mm Repositionable - [id number] Implanted:Qty: 1 on 05/11/2022 by Jeffrey Weber MD [place] [facility] [place] [employer] [id number] 01/29/2024 [id number] / / [id number] documented as of this encounter Visit Diagnoses Diagnosis Autoimmune hepatitis (HCC) Autoimmune hepatitis Postoperative hypothyroidism Postsurgical hypothyroidism Rectal varices Unspecified hemorrhoids without mention of complication 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 No Full Code 12/06/2019 4:21 AM 12/11/2019 [...] the patient have Health Care Power of Doctor Of Podiatric Medicine? No Care Teams Vice Squad Police Officer Relationship Specialty Start Date End Date Reggie Wei, DO [address] [place] [address] PCP - General Internal Medicine 03/08/22 documented as of this encounter
--- OUTSIDE RECORDS SUMMARY | 2023-03-19 22:33 | External Medical Summary ---
Author Name Unknown Address Unknown Organization K1G:LABORATORY [facility] - [facility] [id number] Laboratory Report Ordering Provider Test Date Status REJI FELIZ JR 12/20/2022 17:01:03 Final Observation Date Value Abnormality Reference (Units ) Status BUN 12/20/2022 17:01:03 35 Above high normal 6-20 (mg/dL) Final Creatinine 12/20/2022 17:01:03 2.6 Above high normal 0.5-1.0 (mg/dL) Final Glomerular filtration rate/1.73 sq M.predicted [Volume Rate/Area] in Serum, Plasma or Blood by Creatinine-based formula (CKD-EPI) 12/20/2022 17:01:03 21 Below low normal >=60 (mL/min) Final eGFR is calculated based on the CKD-EPI 2020 equation SODIUM 12/20/2022 17:01:03 130 Below low normal 135 -146 (mmol/L) Final Potassium 12/20/2022 17:01:03 3.1 Below low normal 3.5 -5.1 (mmol/L) Final Cl 12/20/2022 17:01:03 93 Below low normal 98- 107 (mmol/L) Final CO2 12/20/2022 17:01:03 25 22-32 (mmo l/L) Final Anion gap 12/20/2022 17:01:03 12 7-15 (mmol /L) Final Glucose 12/20/2022 17:01:03 130 Above high normal 70 -120 (mg/dL) Final Albumin 12/20/2022 17:01:03 3.0 Below low normal 3.8 -5.0 (g/dL) Final AST (Aspartate aminotransferase) 12/20/2022 17:01:03 12 10-35 (U/L) Fin al Alk Phos 12/20/2022 17:01:03 74 35-130 (U/ L) Final Bilirubin, Total 12/20/2022 17:01:03 0.5 <=1 .2 (mg/dL) Final Calcium 12/20/2022 17:01:03 8.4 8.4-10.2 ( mg/dL) Final Protein 12/20/2022 17:01:03 6.6 6.0-8.3 (g /dL) Final ALT (Alanine aminotransferase) 12/20/2022 17:01:03 7 Below low normal 10-35 (U/L) Final Performing Location LABORATORY [facility] - [address] [place] [phone]
--- OUTSIDE RECORDS SUMMARY | 2023-03-19 22:33 | External Medical Summary ---
Author Name Unknown Address Unknown Organization K1G:LABORATORY [facility] - [address] [place] [phone] Laboratory Report Ordering Provider Test Date Status REJI FELIZ JR 12/20/2022 17:01:03 Final Observation Date Value Abnormality Reference (Units ) Status Lipase 12/20/2022 17:01:03 30 13-60 (U/L ) Final Performing Location LABORATORY [facility] - [address] [place] [phone]
--- OUTSIDE RECORDS SUMMARY | 2023-03-19 22:33 | External Medical Summary ---
Author Name Unknown Address Unknown Organization K1G:LABORATORY [facility] - [address] [place] [id number] Laboratory Report Ordering Provider Test Date Status TRINIYOSELINLEENA POWELL 12/20/2022 17:01:03 Final Observation Date Value Abnormality Reference (Units ) Status SYNC LEUKOCYTES IN BLOOD BY AUTOMATED COUNT 12/20/2022 17:01:03 10.97 Above high normal 4.00-10.80 (K/uL) Final Segs 12/20/2022 17:01:03 83.2 Above high normal 40.0-75.0 (%) Final Lymphs % 12/20/2022 17:01:03 9.1 Below low normal 18.0-42.0 (%) Final Monos 12/20/2022 17:01:03 7.0 1.0-11.0 (%) Final Eosinophils 12/20/2022 17:01:03 0.4 0.0-6.0 (%) Final Basos 12/20/2022 17:01:03 0.3 0.0-2.0 (%) Final Absolute Segs 12/20/2022 17:01:03 9.13 Above high normal 1.80-7.70 (K/uL) Final Lymphs, absolute 12/20/2022 17:01:03 1.00 1.00-4.80 (K/ul) Final Monos, Abs 12/20/2022 17:01:03 0.77 0.00-1.10 (K/uL) Final Eos, Abs 12/20/2022 17:01:03 0.04 0.00-0.70 (K/uL) Final Basos, Abs 12/20/2022 17:01:03 0.03 0.00-0.20 (K/uL) Final Performing Location LABORATORY [facility] - [address] [facility] [phone]
--- OUTSIDE RECORDS SUMMARY | 2023-03-19 22:33 | External Medical Summary ---
Author Name Unknown Address Unknown Organization K1G:LABORATORY [facility] - [address] [place] [phone] Laboratory Report Ordering Provider Test Date Status REJI FELIZ JR 12/20/2022 17:01:03 Final Observation Date Value Abnormality Reference (Units ) Status Lactic Acid, Whole Blood 12/20/2022 17:01:03 1.9 0.4-2.0 (mmol/L) Final Performing Location LABORATORY [facility] - [address] [place] [phone]
--- OUTSIDE RECORDS SUMMARY | 2023-03-19 22:33 | External Medical Summary | Summary of Care ---
Author Name Unknown Organization [facility] Address [address] [place] [address] Phone [phone] Care Team Providers Care Leather Sprayer Name Role Phone Reggie Eddy DO Primary Care Provid er Reason for Referral * Evaluate & Treat - Unlimited Visits (Within 10 days (routine)) - Pending Review Specialty Diagnoses / Procedures Referred By Jordyn cano Referred To Contact Podiatry Diagnoses Right foot pain Reggie Eddy DO [address] [place] [id number] Referral ID Status Reason Start Date Expiration Date Visits Requested Visits Authorized [id number] Pending Review Specialty Services Required 10/21/[phone] Question Answer Referral Priority Within 10 days (routine) Which condition are you referring this patient for? General Foot Pain Comments Prefers [facility] location Reason for Visit * Reason Onset Date Comments Test Results 10/07/2022 Sent MyG 10/12/22 Encounter Details Date Type Department Care Team Description 10/07/2022 Telephone Family [address] [address] Reggie Eddy DO [address] [place] [phone] Test Results (Sent MyG 10/12/22) Allergies Active Allergy Reactions Severity Noted Date Comments Hydromorphone Hcl Itching Medium 11/09/2015 Environmental Low 05/04/2010 Pollen -asthmatic attacks documented as of this encounter (statuses as of 11/15/2022) Medications Medication Sig Dispensed Refills Start Date [...] 05/20/2022 Active Nadolol 40 MG Oral Tablet (Corgard)Indication [...] 6 hours as needed for Pain, Moderate. 120 Tablet 0 09/09/2022 10/21/19 23 Discontinu ed(Refill) documented as of this encounter (statuses as of 11/15/2022) Active Problems Problem Noted Date Other cirrhosis [...] typical SLE sx- negative/normal C3/C4, SSA/SSB, centromere, CAFETERIA AIDE/Sm, ESR,CRP. dsDNA borderline. [place] unlikely SLE. o 2012: Seen again by Rheum- Dr. Jung- photosensitive rash and raynauds. Borderline dsDNA. [place] likely SLE, though possible AIH could explain (+) MARY. HCQ discussed but wanted to avoid by GI. 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 Serologic abnormality 07/05/2010 Esophageal reflux 05/19/2010 Postoperative hypothyroidism 01/23/2002 HISTORY OF TOBACCO USE 01/23/2002 Autoimmune hepatitis documented as of this encounter (statuses as of 11/15/2022) Resolved Problems Problem Noted Date Resolved Date [...] as of this encounter (statuses as of 11/15/2022) Immunizations Name Administration Dates Next Due HEP [...] encounter Miscellaneous Notes * Telephone Encounter - Judith Gordon LPN - 10/25/2022 10:35 AM EDT Please help patient schedule for [facility] referral * Telephone Encounter - Reggie Eddy DO - 10/21/2022 9:55 AM EDT Referral placed as requested * Telephone Encounter - Judith Gordon LPN - 10/21/2022 8:18 AM EDT Patient is agreeable to podiatry referral at [facility]. * Telephone Encounter - Judith Gordon LPN - 10/12/2022 3:07 PM EDT Sent results through [facility] * Telephone Encounter - Bela Brooks LPN - 10/07/2022 4:38 PM EDT Provider to address: n/a Reason for Call: Test Results Contact: Telephone Call Contact Type: Test Results Outcome: called. Left message to return call Total Time including non face to face (minutes): 5 * Telephone Encounter - Nani Pastor LPN - 10/07/2022 2:09 PM EDT ----- Message from Reggie Eddy DO sent at 10/07/2022 1:01 PM EDT ----- Reviewed patient's foot x-ray. No obvious fractures or other abnormalities. If pain continues wouldsuggest podiatry referral documented in this encounter Plan of Treatment Upcoming Encounters Date Type Specialty Care Team Description 01/04/2023 Telemedicine Endocrinology Gilbert Hawkins MD [address], [place] [phone] 01/09/2023 Office Visit Ophthalmology Fran French DO [address], [place] [phone] Scheduled Procedures Name Priority Associated Diagnoses Date/Ti me ESOPHAGOGASTRODUODENOSCOPY ( EGD), FLEXIBLE, TRANSORAL, DIAGNOSTIC Recall Jones's esophagus Family history of colon cancer Rectal varices COLONOSCOPY FLEXIBLE PROXIMAL DIAGNOSTIC Recall Jones's esophagus Family history of colon cancer Rectal varices ESOPHAGOGASTRODUODENOSCOPY ( EGD), FLEXIBLE, TRANSORAL, DIAGNOSTIC Recall Gastroesophageal reflux disease without esophagitis Scheduled Referrals Name Type Priority Associated Diagnoses Orde r Schedule PODIATRY REFERRAL OP Referral Within 10 days (routine) Right foot pain Ordered: 10/21/2022 Health Maintenance Due Date Last Done Comments [...] this encounter Medical Devices Implanted Type Area Exercise Equipment Specialist Device Identifier Shelf Expiration Date Model / Serial / Lot Lens 22.0 Sa60at - [id number] Implanted:Qty: 1 on 10/15/2012 at OR [facility] Left: Eye [employer] 10/07/2016 SA60AT / [id number] / Lens 22.0 Sa60 - [id number] Implanted:Qty: 1 on 11/29/2012 at OR [facility] Right: Eye [employer] 03/31/2017 SA60AT / [id number] / Duraclip 11mm Repositionable - [id number] Implanted:Qty: 1 on 05/11/2022 by Jeffrey Weber MD at ENDOSCOPY [facility] [employer] [id number] 01/29/2024 [id number] / / [id number] documented as of this encounter Visit Diagnoses Diagnosis Right foot pain- Primary Pain in limb documented in this encounter Advance Directives Latest [...] patient have Health Care Power of Supervisor Product Inspection? No Full Code 12/06/2019 4:21 AM 12/11/2019 [...] patient have Health Care Power of Supervisor Product Inspection? No Care Teams Leather Sprayer Relationship Specialty Start Date End Date Reggie Eddy DO [address] [place] [phone] PCP - General Internal Medicine 03/08/22 documented as of this encounter
--- OUTSIDE RECORDS SUMMARY | 2023-03-19 22:33 | External Medical Summary | Summary of Care ---
Author Name Unknown Organization [facility] Address [address] [place] [address] Phone [phone] Care Team Providers Care Adoption Agent Name Role Phone Reggie Eddy Primary Care Provid er Reason for Visit * Reason Comments Headache Encounter Details Date Type Department Care Team Description 12/20/2022 Telemedicine [facility] [address] [place] [address] Shannan Noble PA-C [address] [place] [address] Intractable headache, unspecified chronicity pattern, unspecified headache type*; Immunodeficiency (HCC); Lightheadedness Allergies Active Allergy Reactions Severity Noted Date [...] Tablet by mouth at bedtime. 90 Tablet 09/30/2022 Active Levothyroxine Sodium 150 MCG Oral Tablet (Levoxyl)Indications :Postoperative hypothyroidism TAKE 1 TABLET BY MOUTH DAILY IN THE MORNING. (AT LEAST 30 MIN PRIOR TO BREAKFAST OR OTHER MEDS) 90 Tablet 11/23/2022 Active Nadolol 40 MG Oral Tablet [...] Pain, Moderate. 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 dsDNA borderline. [place] unlikely SLE. o 2012: Seen again by Rheum- Dr. Jung- photosensitive rash and raynauds. Borderline dsDNA. [place] likely SLE, though possible AIH could explain (+) MARY. HCQ discussed but wanted to avoid by GI. o [id number]: multiple hospitalizations for ascites; returned to Rheum 2020- no objective synovitis Esophageal varices in cirrhosis [...] No 12/23/2019 documented as of this encounter Progress Notes * Shannan Noble PA-C - 12/20/2022 2:01 PM EDT Patient location: HOME. I was in a hospital or clinic location. After connecting through [employer],patient was verified with two unique identifiers. Patient (or authorized legal insurance follow up representative) was then informed that this was a Telemedicine visit and being conducted confidentially over secure lines. Methods to assure confidentiality were taken. Patient acknowledged consent and understanding of pr ivacy and security of the Telemedicine visit. The patient agreed to participate. Subjective: Jazmín Blevins is a 57 year old female. No chief complaint on file. HPI: Patient reports approximately 6 days pressure in the back of her head that she states radiates downher spine. She states that pain is significantly worse if she tries to look down. She also experiences dizziness/lightheadedness. She reports she has had difficulty with ambulation and is frequently falling [id number]. She denies noticeable weakness on 1 side or the other. She denies speech difficulties. She reports visual difficulties with blurred vision. she denies fever, chills, or malaise. She denies any head, neck, or back injury. She denies sick contacts. She reports frequent episodes of lightheadedness over the past few days. She also reports new lowerextremity edema. "Heart pounding in ears" Patient is on CellCept. 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 Ferrous Sulfate 325 (65 Fe) MG Oral Tablet (Feosol) Take 1 Tab by mouth 2 times a day. 60 Tab 11 Nebulizer Device For use with duoneb treatment 1 Each 0 oxygen IN GAS 3 liters/min at rest and at night and 5 liters/min on activity (Patient taking differently: 3 liters/min at rest and at night and 5 liters/min on activity as needed) 1 Each 0 Calcium Citrate 200 MG Oral Tablet Take 400 mg by mouth 2 times a day. 120 Tab 0 Lactulose 10 GM/15ML Oral Solution (Constulose) TAKE 30 ML BY MOUTH 3 TIMES A DAY 2838 mL 5 Magnesium Chloride 64 MG [...] Do not swallow capsule.. 30 Capsule 5 Omeprazole 20 MG Oral Capsule Delayed Release (PriLOSEC) Take 1 Capsule by mouth in the morning. 90Capsule 1 Gabapentin 300 MG Oral Capsule (Neurontin) Take [...] WITH SKIN OR EYES. 30 Tablet 5 Tadalafil (PAH) 20 MG Oral Tablet Take 2 Tablets by mouth in the morning. 60 Tablet 9 Torsemide 20 MG Oral Tablet (Demadex) Take [...] 3 mL before bedtime. 3600 mL 11 Mycophenolate Mofetil 500 MG Oral Tablet (Cellcept) Take 1 Tablet by mouth in the morning and 1 Tablet before bedtime. 180 Tablet 1 Fluticasone Propionate 50 MCG/ACT Nasal Suspension (Flonase) Administer 2 Sprays into nostril in the morning. 48 mL 3 Spironolactone 100 MG Oral Tablet (Aldactone) TAKE 1 AND 1/2 TABLETS BY MOUTH EVERY DAY 135 Tablet 1 traZODone HCl 50 MG [...] needed for Pain, Moderate. 240 Tablet 0 No current facility-administered medications for this visit. Review of patient's allergies indicates: Allergen Reactions Dilaudid [Hydromorphone Hcl] Itching Environmental Pollen -asthmatic attacks Objective: LMP 07/09/2012 General: alert, does not appear in distress Lungs: No conversational dyspnea. No evidence of labored breathing Skin: no obvious lesions or rashes on face Neuro Exam: alert & oriented x 3 with fluent speech ASSESSMENT: Intractable headache, unspecified chronicity pattern, unspecified headache type (Primary) Immunodeficiency (HCC) Lightheadedness Given patient's central neurologic symptoms, advised that she presents to the emergency department immediately. I offered multiple times to call ambulance for patient. She politely declined. She states that her will take her to [facility]. I spoke with provider there,Shadi Stringer PA-C via the [facility] transfer line. Patient instructed to present directly to ED.Patient instructed not to drive. Declined ambulance. Follow Up: Return for Refused ambulance. Have take you to nearest ER immediatly. Call 911 if assistance is needed. | For: Refused ambulance. Have take you to nearest ER immediatly. Call 911 if assistance is needed | Check-out note: Pt states she is having her take her to [facility]. I spent a total of 20-29 minutes (exact time 25 mins) on the date of service in preparation, delivery, and documentation of the care provided to Jazmín Blevins excluding any time spent in the performance of separately billed services. Shannan Noble PA-C documented in this encounter Plan of Treatment Upcoming Encounters Date Type Specialty Care Team Description 01/04/2023 Telemedicine Endocrinology Gilbert Hawkins MD [address] [place] [address] 01/09/2023 Office Visit Ophthalmology Fran French DO [address], [place] [phone] 03/16/2023 Office Visit Pulmonary Twin Hayden MD [address] [place] [address] Scheduled Procedures Name Priority Associated Diagnoses Date/Ti [...] this encounter Medical Devices Implanted Type Area Vocational Nursing Instructor Device Identifier Shelf Expiration Date Model / Serial / Lot Lens 22.0 Sa60at - [id number] Implanted:Qty: 1 on 10/15/2012 at OR [facility] Left: Eye [employer] 10/07/2016 SA60AT / [id number] / Lens 22.0 Sa60at - [id number] Implanted:Qty: 1 on 11/29/2012 at [place] [facility] Right: Eye [employer] 03/31/2017 SA60AT / [id number] / Duraclip 11mm Repositionable - [id number] Implanted:Qty: 1 on 05/11/2022 by Jeffrey Weber MD at ENDOSCOPY [facility] [employer] [id number] 01/29/2024 [id number] / / [id number] documented as of this encounter Visit Diagnoses Diagnosis Intractable headache, unspecified chronicity pattern, unspecified headache type- Primary Immunodeficiency (HCC) Unspecified immunity deficiency Lightheadedness Dizziness and giddiness documented in this encounter Advance Directives Latest [...] the patient have Health Care Power of Brush Cleaner? No Full Code 12/06/2019 4:21 AM 12/11/2019 [...] the patient have Health Care Power of Brush Cleaner? No Care Teams Adoption Agent Relationship Specialty Start Date End Date Reggie Eddy, [place] [address] PCP - General Internal Medicine 03/08/22 documented as of this encounter
--- OUTSIDE RECORDS SUMMARY | 2023-03-19 22:33 | External Medical Summary ---
Author Name Unknown Address Unknown Organization K01:LABORATORY [facility] - [address] [place] [address] Laboratory Report Ordering Provider Test Date Status REJI FELIZ JR 12/20/2022 17:01:03 Final Observation Date Value Abnormality Reference (Units ) Status LDH 12/20/2022 17:01:03 140 <=250 (U/L ) Final Performing Location LABORATORY [facility] - [address] [place] [address]
--- OUTSIDE RECORDS SUMMARY | 2023-03-19 22:33 | External Medical Summary | Summary of Care ---
Author Name Unknown Organization [facility] Address [address] [place] [address] Phone [phone] Care Team Providers Care Manager Strategy Name Role Phone Reggie Eddy Primary Care Provid er Reason for Visit * Auth/Cert Specialty Diagnoses / Procedures Referred By Jordyn cano Referred To Contact Diagnoses Lumbar radiculopathy Lumbar radiculopathy [M54.16] Procedures INJECT DX/THER SUBSTANCE INTERLAMINAR LUMBAR/SACRAL W IMAGE GUIDE INJECTION SPINE LUMBAR OR SACRAL Referral ID Status Reason Start Date Expiration Date Visits Re quested Visits Authorized [id number] Encounter Details Date Type Department Care Team Description 11/09/2022 Hospital Encounter OR [facility], Operating Room [facility] [address] [place] [id number] Wong Cornelius DO [address] [place] [address] Allergies Active Allergy Reactions Severity Noted Date Comments Hydromorphone Hcl Itching Medium 11/09/2015 Environmental Low 05/04/2010 Pollen -asthmatic attacks documented as of this encounter (statuses as of 11/10/2022) Medications Medication Sig Dispensed Refills Start Date [...] by mouth in the morning. 60 Each 09/08/2022 Active Ambrisentan 10 MG Oral Tablet [...] THE MORNING Strength: 20 mg. 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 dsDNA borderline. Reader unlikely SLE. o 2012: Seen again by Rheum- Dr. Jung- photosensitive rash and raynauds. Borderline dsDNA. Reader likely SLE, though possible AIH could explain (+) MARY. HCQ discussed but wanted to avoid by GI. o [id number]: multiple hospitalizations for ascites; returned to Rheum 2019- no objective synovitis Esophageal varices in cirrhosis 07/28/19 MEDICATION USE AGREEMENT 06/13/2017 Disordered sleep 12/14/2016 Controlled substance agreement signed Normocytic anemia 12/19/2012 PPD positive, treated 12/17/2012 Serologic abnormality 07/05/2010 Esophageal reflux 05/19/2010 Postoperative hypothyroidism 01/23/2002 HISTORY OF TOBACCO USE 01/23/2002 Autoimmune hepatitis documented as of this encounter (statuses as of 11/10/2022) Resolved Problems Problem Noted Date Resolved Date [...] as of this encounter (statuses as of 11/10/2022) Immunizations Name Administration Dates Next Due HEP [...] Sign Reading Time Taken Comments Blood Pressure 119/72 11/09/2022 12:46 PM EDT Pulse 66 11/09/2022 12:46 PM EDT Temperature 36.2 C (97.1 F) 11/09/2022 12:22 PM E DT Respiratory Rate 16 11/09/2022 12:46 PM EDT Oxygen Saturation 94% 11/09/2022 12:46 PM EDT Inhaled Oxygen Concentration - - Weight - [...] No 12/23/2019 documented as of this encounter Discharge Instructions * Discharge Instr - AVS* Wong Cornelius DO - 11/09/2022 12:42 PM EDT [facility] [address] [place] [address] Discharge Date: 11/09/2022 You may call [facility] at [phone] during business hours. For after-hours emergencies call 911. Your attending physician at the time of your discharge was: Wong Cornelius DO [address] [place] [address] The information below provides you with the instructions and the list of medications you need to betaking following discharge from the hospital. If you have any questions, please ask before leaving.Please carry this letter with you when you see your doctor in the clinic. Diet: Resume your normal diet If you are diabetic, follow your blood sugars closely for next 2-3 days as they are likely to be elevated. If you are having difficulty controlling your blood sugars call your family doctor or the physician that treats your diabetes. Activity: Do not engage in strenuous activity today Resume your normal activities tomorrow Do not soak in water for 24 hours. No swimming, hot tub or bath but showering is allowed. Do not use heat on the injection site for 24 hours. If uncomfortable ice may be helpful. Some injections may make your arms or legs weak for a few hours. Be extremely careful when walking or changing positions that you do not fall. Have someone assist you for the next 6 hours. If weakness or numbness becomes progressive CALL IMMEDIATELY or GO TO THE NEAREST EMERGENCY ROOM Keep a diary of your pain until seen in the office to help us determine how effective the injectionwas Do not restart physical therapy or chiropractic manipulation until 48 hours after your injection Call : If weakness or numbness suddenly becomes worse or become progressive If the injection site becomes red, swollen, warm to the touch, begins to bleed or drain fluid, or is excessively painful. If you have any questions Medications: Resume all the medications you were taking prior to your injection. Resume your anticoagulants tomorrow unless otherwise instructed by your family physician, manager administration or the anticoagulation clinic. Additional Instructions: Driving: . Date you may return to work or school: Follow Up: Call [phone] in 4 weeks. documented in this encounter Progress Notes * Wong Cornelius DO - 11/09/2022 12:42 PM EDT [facility] [address] [address] OUTPATIENT SURGERY DISCHARGE SUMMARY NOTE Name: Jazmín Blevins Location: OR [facility]/OR Date: 11/09/2022 Time: 12:42 PM Surgery Date: 11/09/2022 Procedure: Procedure(s): INJECTION SPINE LUMBAR OR SACRAL No laterality found for procedure #1 Surgeon: Surgeon(s): Wong Cornelius DO Discharge Diagnosis: Lumbar radicular pain After examination of this patient, I have determined she is ready for discharge to home when the patient meets criteria. Discharge instructions were given to the patient. documented in this encounter H&P Notes * Wong Cornelius DO - 11/09/2022 6:56 AM EDT Interventional Pain Pre-Procedure Assessment Name:Jazmín Blevins Date:11/09/2022 Time:6:56 AM Procedure(s): Caudal epidural steroid injection Diagnosis: Lumbar radicular pain Pre-Procedure Assessment: Prior to the procedure, the patient was identified. The patient's history, medications and allergies were reviewed . The patient is competent. The risks and benefits of the proposed procedure and theplanned sedation were discussed with the patient. All questions were answered and informed consent for the procedure was obtained. Prior to Admission medications Medication Sig Last Dose Discont. Ipratropium-Albuterol 0.5-2.5 (3) MG/3ML Inhalation Solution (Duoneb) Inhale 3 mL via nebulizer in the morning and 3 mL at noon and 3 mL in the evening and 3 mL before bedtime. traMADol HCl 50 MG Oral Tablet (Ultram) Take 2 Tablets by mouth every 6 hours as needed for Pain, Moderate. traZODone HCl 50 MG Oral Tablet (Desyrel) Take 1 Tablet by mouth at bedtime. Spironolactone 100 MG Oral Tablet (Aldactone) TAKE 1 AND 1/2 TABLETS BY MOUTH EVERY DAY Fluticasone Propionate 50 MCG/ACT Nasal Suspension (Flonase) Administer 2 Sprays into nostril in the morning. Mycophenolate Mofetil 500 MG Oral Tablet (Cellcept) [...] may increase to 2 caps at bedtimes Levothyroxine Sodium 150 MCG Oral Tablet (Levoxyl) Take 1 Tablet by mouth daily first thing in the morning. (at least 30 min prior to breakfast or other meds) Omeprazole 20 MG Oral Capsule Delayed Release (PriLOSEC) Take 1 Capsule by mouth in the morning. Nadolol 40 MG Oral Tablet (Corgard) Take 1 Tablet by mouth in the morning. Spiriva HandiHaler [...] ML BY MOUTH 3 TIMES A DAY Calcium Citrate 200 MG Oral Tablet Take 400 mg by mouth 2 times a day. oxygen IN GAS 3 liters/min at rest and at night and 5 liters/min on activity Patient taking differently: 3 liters/min at rest and at night and 5 liters/min on activity as needed Ferrous Sulfate 325 (65 Fe) MG Oral Tablet (Feosol) Take 1 Tab by mouth 2 times a day. Nebulizer Device For use with duoneb treatment Ascorbic Acid (VITAMIN C-CORWIN HIPS) 1000 MG TABS Take 1 Tablet by mouth in the morning. Review of patient's allergies indicates: Allergen Reactions Dilaudid [Hydromorphone Hcl] Itching Environmental Pollen -asthmatic attacks LMP 07/09/2012 Physical Exam: Mental Status Examination: alert and oriented. Airway Examination: normal oropharyngeal airway and neck mobility. Respiratory Examination: clear to auscultation. CV Examination: normal. ASA Grade: II - A patient with mild systemic disease. After reviewing the risks and benefits, the patient was deemed in satisfactory condition to undergothe procedure. The anesthesia plan was to use local anesthesia. Wong Cornelius DO 11/09/2022 documented in this encounter Nursing Notes * Poornima Warren RN - 11/09/2022 12:47 PM EDT Visited by Dr Cornelius. Verbalized understanding of discharge directions. Ready for discharge to home. * Lavern Live RN - 11/09/2022 12:40 PM EDT Band aid applied to area. Patient transferred to PACU 11 via wheelchair * Lavern Live RN - 11/09/2022 12:38 PM EDT Patient tolerating pain management injection well. documented in this encounter OR Notes * OR Surgeon - Wong Cornelius DO - 11/09/2022 12:43 PM EDT OPERATIVE RECORD OR [facility], Operating Room [address] [place] [address] Jazmín Blevins : 1965 DOS: 11/09/2022 SERVICE: INTERVENTIONAL PAIN MANAGEMENT PRE-OP DIAGNOSIS: Lumbar radicular pain. POST-OP DIAGNOSIS: Same. SURGEON: Wong Cornelius DO. ASSISTANTS: None. ANESTHESIA: 2 cubic centimeters of 1% lidocaine. OPERATION: Caudal epidural steroid injection. FINDINGS: No intraoperative findings. ESTIMATED BLOOD LOSS: None. DRAINS: There were no drains placed. FLUIDS: No IV fluids. URINE OUTPUT: None. SPECIMEN: No specimens collected. COMPLICATIONS: None. CONDITION: Good. INDICATIONS AND HISTORY: Jazmín Blevins presents in anticipation of undergoing epidural steroidinjection for persistent low back and lower extremity radicular pain refractory to conservative treatment. The injection procedure was reviewed, as well as the risks of bleeding, infection, headache,nerve or spinal cord injury, worsening pain, or steroid side effects. DESCRIPTION OF OPERATION: After obtaining appropriate informed consent, Jazmín Blevins was taken to the fluoroscopy suite, placed in a prone position. Time- out was taken to properly identify the patient and procedure, and the sacral hiatus was identified and the overlying skin sterilely preppedwith ChloraPrep and draped. 1% lidocaine, 2 cubic centimeters, was infiltrated in skin and subcutaneous tissue and a #25 gauge, 3-1/2 inch spinal needle was directed with fluoroscopic guidance through the sacral hiatus, into the sacral canal without pain or paresthesia. After negative aspiration for blood or cerebrospinal fluid, Omnipaque 180, 0.5 cubic centimeter was easily injected, showed appropriate epidural spread in P-A and lateral fluoroscopic views. There was no evidence of intravascular or subarachnoid spread of contrast. Kenalog 40 mg with 4 cubic centimeters of preservative-free normal saline was slowly and easily injected without pain. There was appropriate washout of contrast. The needle was removed. Patient tolerated procedure well. Jazmín Blevins will be re-evaluated by phone in approximately 4 weeks, and was given appropriate discharge instructions following postprocedure monitoring. Wong Cornelius DO 11/09/2022 12:43 PM documented in this encounter Plan of Treatment Upcoming Encounters Date Type Specialty Care Team Description 01/04/2023 Telemedicine Endocrinology Gilbert Hawkins MD [address] [place] [address] 01/09/2023 Office Visit Ophthalmology Fran French DO [address] [place] [address] Scheduled Procedures Name Priority Associated [...] this encounter Medical Devices Implanted Type Area Assistant Cook Device Identifier Shelf Expiration Date Model / Serial / Lot Lens 22.0 Sa60 - [id number] Implanted:Qty: 1 on 10/15/2012 at OR [facility] Left: Eye [employer] 10/07/2016 SA60AT / [id number] / Lens 22.0 Sa60 - [id number] Implanted:Qty: 1 on 11/29/2012 at OR [facility] Right: Eye [employer] 03/31/2017 SA60AT / [id number] / Duraclip 11mm Repositionable - [id number] Implanted:Qty: 1 on 05/11/2022 by Jeffrey Weber MD at ENDOSCOPY [facility] [employer] [id number] 01/29/2024 [id number] / / [id number] documented as of this encounter Procedures Procedure Name Priority Date/Time Associated Diagnosis Comments FLUORO INTERVENTIONAL PAIN PROCEDURE NONBILLABLE Routine 11/09/2022 12:44 PM EDT documented in this encounter Results * FLUORO INTERVENTIONAL PAIN PROCEDURE NONBILLABLE (11/09/2022 12:44 PM EDT) Narrative Scheduling, Silent - 11/09/2022 12:44 PM EDT This procedure will not be read by a Radiologist. Please see operative note. Wong Cornelius DO RAD FLUOROSCOPY documented in this encounter Administered Medications Inactive Administered Medications - up to 3 most recent administrations Medication Order MAR Action Action Date Dose Rate Site Iohexol (Omnipaque 180) inj 0.5 mL 0.5 mL, Injection, ONCE, On Mon11/09/22 at 1230, For 1 dose Given 11/09/2022 12:38 PM EDT 0.5 mL lidocaine 1 % inj 20 mg 20 mg (2 mL), Subcutaneous, ONCE, On Mon11/09/22 at 1230, For 1 dose Given 11/09/2022 12:36 PM EDT 20 mg Other-Specify Triamcinolone Acetonide (Kenalog) 40 MG/ML inj 40 mg 40 mg, Injection, ONCE, On Mon11/09/22 at 1230, For 1 dose Given 11/09/2022 12:38 PM EDT 40 mg documented in this encounter Active and Recently Administered Medications Times are shown in EDT. Scheduled Medication Order 11/07/2022 11/08/2022 11/09/2022 Iohexol (Omnipaque 180) inj 0.5 mL (COMPLETED) 0.5 mL, Injection, ONCE, On Mon11/09/22 at 1230, For 1 dose 1238 (Given - Provid er: Lavern Live RN) lidocaine 1 % inj 20 mg (COMPLETED) 20 mg (2 mL), Subcutaneous, ONCE, On Mon11/09/22 at 1230, For 1 dose 1236 (Given - Provid er: Lavern Live RN - Comment: CAUDAL) Triamcinolone Acetonide (Kenalog) 40 MG/ML inj 40 mg (COMPLETED) 40 mg, Injection, ONCE, On Mon11/09/22 at 1230, For 1 dose 1238 (Given - Provid er: Lavern Live RN) documented in this encounter Advance Directives [...] the patient have Health Care Power of Executive Assistant? No Full Code 12/06/2019 4:21 AM 12/11/2019 [...] the patient have Health Care Power of Executive Assistant? No Care Teams Manager Strategy Relationship Specialty Start Date End Date Reggie Eddy, [place] [address] PCP - General Internal Medicine 03/08/22 documented as of this encounter
--- OUTSIDE RECORDS SUMMARY | 2023-03-19 22:33 | External Medical Summary ---
Author Name Unknown Address Unknown Organization K1G:[facility] - [address] [place] [id number] Laboratory Report Ordering Provider Test Date Status RONY GUTIERREZ 12/20/2022 18:33:44 Final Observation Date Value Abnormality Reference (Units ) Status Glucose Point of Care 12/20/2022 18:33:44 99 70-120 (mg/dL) Final Performing Location [facility] - [address] [facility] [address]
--- OUTSIDE RECORDS SUMMARY | 2023-03-19 22:34 | External Medical Summary | Summary of Care ---
Author Name Unknown Organization [facility] Address [address] [place] [address] Phone [phone] Care Team Providers Care Construction Controller Name Role Phone Reggie Eddy Primary Care Provid er Reason for Visit * Reason Comments Joint Pain Bilat shoulder Encounter Details Date Type Department Care Team Description 10/18/2022 Office Visit Orthopaedics [address] [place] [address] Gwyn Mcgill MD [facility] [place] [address] Nontraumatic partial bilateral rotator cuff tear* Allergies Active Allergy Reactions Severity Noted Date Comments Hydromorphone Hcl Itching Medium 11/09/2015 Environmental Low 05/04/2010 Pollen -asthmatic attacks documented as of this encounter (statuses as of 10/18/2022) Medications Medication Sig Dispensed Refills Start Date [...] the morning. 48 mL 3 09/09/2022 Active traMADol HCl 50 MG Oral Tablet (Ultram)Indications: MEDICATION USE AGREEMENT,DDD (degenerative disc disease), cervical,DDD (degenerative disc disease), thoracic,DDD (degenerative disc disease), lumbar Take 2 Tablets by mouth every 6 hours as needed for Pain, Moderate. 120 Tablet 0 09/09/2022 Active Spironolactone 100 MG Oral Tablet (Aldactone)Indicatio ns:Esophageal varices in cirrhosis (HCC) TAKE 1 AND 1/2 TABLETS BY MOUTH EVERY DAY 135 Tablet 1 09/25/2022 Active traZODone HCl 50 MG Oral Tablet (Desyrel)Indications :Primary insomnia Take 1 Tablet by mouth at bedtime. 90 Tablet 1 09/30/2022 Active Hospital, Clinic, or Other Facility Administered Medication Ordered Dose Route Frequency Start Date End Date Status lidocaine 1% 1 mL - triamcinolone acetonide 40 mg/mL 1 mL inj 2 mLIndications:Nontraumatic partial bilateral rotator cuff tear 2 mL IJ ONCE 10/18/2022 10/19/2022 Active lidocaine 1% 1 mL - triamcinolone acetonide 40 mg/mL 1 mL inj 2 mLIndications:Nontraumatic partial bilateral rotator cuff tear 2 mL IJ ONCE 10/18/2022 10/19/2022 Active documented as of this encounter (statuses as of 10/18/2022) Active Problems Problem Noted Date Other cirrhosis [...] typical SLE sx- negative/normal C3/C4, SSA/SSB, centromere, ROLL TENSION TESTER/Sm, ESR,CRP. dsDNA borderline. [place] unlikely SLE. o 2012: Seen again by Rheum- Dr. Jung- photosensitive rash and raynauds. Borderline dsDNA. Valley likely SLE, though possible AIH could explain (+) MARY. HCQ discussed but wanted to avoid by GI. o 0829-2024: multiple hospitalizations for ascites; returned to Rheum 2019- no objective synovitis Esophageal varices in cirrhosis 07/28/19 18 MEDICATION USE AGREEMENT 06/13/2017 Disordered sleep 12/14/2016 Controlled substance agreement signed Normocytic anemia 12/19/2012 PPD positive, treated 12/17/2012 Serologic abnormality 07/05/2010 Esophageal reflux 05/19/2010 Postoperative hypothyroidism 01/23/2002 HISTORY OF TOBACCO USE 01/23/2002 Autoimmune hepatitis documented as of this encounter (statuses as of 10/18/2022) Resolved Problems Problem Noted Date Resolved Date [...] as of this encounter (statuses as of 10/18/2022) Immunizations Name Administration Dates Next Due HEP [...] as of this encounter Progress Notes * Melchor España PA-C - 10/18/2022 12:53 PM EDT Orthopaedic Procedure Clinic Note Date of Procedure: 10/18/2022 PROCEDURE NOTE INTRAARTICULAR INJECTION SITE:bilateral shoulder DIAGNOSIS:bilateral shoulder partial rotator cuff tear Lidocaine 1.0 % 1 mL Triamcinolone Acetonide 40 mg/mL 1 mL A timeout was called immediately prior to the procedure, to confirm the correct patient, procedure,and site. The site was marked by the physician prior to the procedure. Site was identified:shoulder:Bilateral ROUTE:Subacromial Dr. Mcgill injected the patient Melchor España PA-C documented in this encounter Nursing Notes * Vashti Gore LPN - 10/18/2022 12:55 PM EDT bilat shoulder documented in this encounter Plan of Treatment Upcoming Encounters Date Type Specialty Care Team Description 11/01/2022 Office Visit Family Medicine Reggie Eddy DO [address] [facility] [place] [address] 11/09/2022 Hospital Encounter Surgery Wong Cornelius DO [address] [place] [address] 11/09/2022 Surgery Surgery CousinsWong, DO [address] [place] [address] INJECTION SPINE LUMBAR OR SACRAL 01/04/2023 Telemedicine Endocrinology Gilbert Hawkins MD [address] [place] [address] 01/09/2023 Office Visit Ophthalmology Fran French DO [address] [place] [address] Scheduled Orders Name Type Priority Associated Diagnoses Orde r Schedule ARTHROCENT ASP &/OR INJ MAJOR JX/BURSA W/O US Procedures Routine Nontraumatic partial bilateral rotator cuff tear Ordered: 10/18/2022 Scheduled Procedures Name Priority Associated Diagnoses Date/Ti [...] Date Last Done Comments COVID-19 Vaccine (#1) 1965 Alpha-1 Antitrypsin 1983 Zoster Vaccines (1 of [...] this encounter Medical Devices Implanted Type Area Sow Manager Device Identifier Shelf Expiration Date Model / Serial / Lot Lens 22.0 Sa60at - [id number] Implanted:Qty: 1 on 10/15/2012 at OR [facility] Left: Eye [employer] 10/07/2016 SA60AT / [id number] / Lens 22.0 60at - [id number] Implanted:Qty: 1 on 11/29/2012 at [place] [facility] Right: Eye [employer] 03/31/2017 SA60AT / [id number] / Duraclip 11mm Repositionable - [id number] Implanted:Qty: 1 on 05/11/2022 by Jeffrey Weber MD at [place]OS[place] [facility] [employer] [id number] 01/29/2024 [id number] / / [id number] documented as of this encounter Visit Diagnoses Diagnosis Nontraumatic partial bilateral rotator cuff tear- Primary Lumbar radiculopathy Thoracic or lumbosacral neuritis or [...] the patient have Health Care Power of Maintenance Chief? No Full Code 12/06/2019 4:21 AM 12/11/2019 [...] the patient have Health Care Power of Maintenance Chief? No Care Teams Construction Controller Relationship Specialty Start Date End Date Reggie Eddy, [address] [place] [id number] PCP - General Internal Medicine 03/08/22 documented as of this encounter
--- OUTSIDE RECORDS SUMMARY | 2023-03-19 22:34 | External Medical Summary | Summary of Care ---
Author Name Unknown Organization [facility] Address [address] [place] [address] Phone [phone] Care Team Providers Care Neurological Surgery Teacher Name Role Phone Reggie Eddy DO Primary Care Provid er Reason for Visit * Reason Comments Pain Encounter Details Date Type Department Care Team Description 10/04/2022 Office Visit [facility] [address] [place] [phone] Reggie Eddy DO [address] [place] [phone] Left foot pain* Allergies Active Allergy Reactions Severity Noted Date Comments Hydromorphone Hcl Itching Medium 11/09/2015 Environmental Low 05/04/2010 Pollen -asthmatic attacks documented as of this encounter (statuses as of 10/04/2022) Medications Medication Sig Dispensed Refills Start Date [...] at bedtime. 90 Tablet 1 09/30/2022 Active predniSONE 20 MG Oral Tablet (Deltasone) Take 1 Tablet by mouth in the morning. every morning with food, as instructed.. 7 Tablet 0 05/17/2022 10/05/19 Discontinu ed(Patient preference /discontin uation) predniSONE 10 MG Oral Tablet (Deltasone) Take 1 Tablet by mouth in the morning. 7 Tablet 0 05/20/2022 10/05/19 Discontinu ed(Patient preference /discontin uation) Azithromycin 500 MG Oral Tablet (Zithromax) Take 1 Tablet by mouth in the morning. 5 Tablet 0 05/20/2022 10/05/19 Discontinu ed(Patient preference /discontin uation) documented as of this encounter (statuses as of 10/04/2022) Active Problems Problem Noted Date Other cirrhosis [...] o Lost to follow up- moved to [place] o 2009: Dx with AIH: incomplete cirrhosis found incidentally at time of cholecystectomy when liver bx obtained; grade 1 varices; MARY , ASMA positive - Tx pred initially then Imuran 08/19 then MMF in 08/20 when she developed ascites o 2010: Rheum exam- not typical SLE sx- negative/normal C3/C4, SSA/SSB, centromere, ADULT BASIC EDUCATION MANAGER/Sm, ESR,CRP. dsDNA borderline. [place] unlikely SLE. o 2012: Seen again by Rheum- Dr. Jung- photosensitive rash and raynauds. Borderline dsDNA. [place] likely SLE, though possible AIH could explain (+) MARY. HCQ discussed but wanted to avoid by GI. o [phone]: multiple hospitalizations for ascites; returned to Rheum 2019- no objective synovitis Esophageal varices in cirrhosis 07/28/19 18 MEDICATION USE AGREEMENT 06/13/2017 Disordered sleep 12/14/2016 Controlled substance agreement signed Normocytic anemia 12/19/2012 PPD positive, treated 12/17/2012 Serologic abnormality 07/05/2010 Esophageal reflux 05/19/2010 Postoperative hypothyroidism 01/23/2002 HISTORY OF TOBACCO USE 01/23/2002 Autoimmune hepatitis documented as of this encounter (statuses as of 10/04/2022) Resolved Problems Problem Noted Date Resolved Date [...] as of this encounter (statuses as of 10/04/2022) Immunizations Name Administration Dates Next Due HEP [...] 25 Q uit: 06/09/2020 Smokeless Tobacco: Never Tobacco Cessation:Counseling Given: Yes Comments:5-6 a day Alcohol Use Standard Drinks/Week [...] Sign Reading Time Taken Comments Blood Pressure 100/52 10/04/2022 2:47 PM EDT Pulse 63 10/04/2022 2:47 PM EDT Temperature 35.9 C (96.6 F) 10/04/2022 2:47 PM ED T Respiratory Rate 20 10/04/2022 2:47 PM EDT Oxygen Saturation 89% 10/04/2022 2:47 PM EDT Inhaled Oxygen Concentration - - Weight 48.1 kg (106 lb) 10/04/2022 2:47 PM EDT Height - - Body Mass Index 17.12 06/15/2022 1:33 PM EST documented in this [...] Progress Notes * Reggie Eddy, DO - 10/04/2022 3:03 PM EDT Subjective Jazmín Blevins is a 57 year old female. Chief Complaint Patient presents with Pain HPI: Patient presents to office for evaluation of pain, swelling in her left foot. States over Memorial Day a glass plate dropped on left foot. States sustained laceration. [facility] told "[facility]." States has been having continued issues with pain/swellingdorsal left foot. Pain usually worse by end of day. No swelling in lower leg. States she did have another injury in the past where she fractured her left foot. No surgery was done at that time. Againpain can be worse after she is on her feet for awhile such as at work. No obvious warmth or color change to the skin of her foot. Sometimes her 4th and 5th toe seems to go numb. This comes and goes. PMH: Patient Active Problem List Diagnosis Code Postoperative hypothyroidism E89.0 HISTORY OF TOBACCO USE Z87.891 Esophageal reflux K21.9 Serologic abnormality R89.4 Autoimmune hepatitis (HCC) K75.4 PPD positive, treated R76.11 Normocytic anemia D64.9 Controlled substance agreement signed Z79.899 Disordered sleep G47.9 MEDICATION USE AGREEMENT [id number] Systemic lupus erythematosus (HCC) M32.9 Esophageal varices [...] I73.00 Other cirrhosis of liver (HCC) K74.69 Current Outpatient Medications Medication Sig Dispense Refill Ascorbic Acid (VITAMIN C-CORWIN HIPS) 1000 MG TABS Take 1 Tablet by mouth in the morning. Ferrous Sulfate 325 (65 Fe) MG Oral Tablet (Feosol) Take 1 Tab by mouth 2 times a day. 60 Tab 11 oxygen IN GAS 3 liters/min at rest [...] (Potassium Chloride Gianna [facility]) TAKE 2 TABLETS BYMOUTH IN THE MORNING. 180 Tablet 1 Albuterol Sulfate HFA 108 (90 Base) MCG/ACT Inhalation Aerosol Solution Inhale 2 Puffs by mouthevery 4 hours as needed for Shortness of Breath or Wheezing. 18 g 5 Spiriva HandiHaler 18 MCG Inhalation Capsule (tiotropium bromide) Inhale 1 Capsule by mouth in the morning. . Do not swallow capsule.. 30 Capsule 5 Nadolol 40 MG Oral Tablet (Corgard) Take 1 Tablet by mouth in the morning. 90 Tablet 1 Omeprazole 20 MG Oral Capsule Delayed Release (PriLOSEC) Take 1 Capsule by mouth in the morning. 90 Capsule 1 Gabapentin 300 MG Oral Capsule (Neurontin) Take 2 Capsules by mouth at bedtime. Take one cap bymouth at bedtime for two weeks, then may increase to 2 caps at bedtimes 180 Capsule 1 Levothyroxine Sodium 150 MCG Oral Tablet (Levoxyl) Take 1 Tablet by mouth daily first thing in the morning. (at least 30 min prior to breakfast or other meds) 90 Tablet 1 Fluticasone Furoate-Vilanterol 200-25 MCG/ACT Inhalation Aerosol [...] mouth in the morning. TAKE 2 TABLETS BYMOUTH EVERY DAY IN THE MORNING Strength: 20 mg. 180 Tablet 3 Mycophenolate Mofetil 500 MG Oral Tablet (Cellcept) Take 1 Tablet by mouth in the morning and 1Tablet before bedtime. 180 Tablet 1 Fluticasone Propionate 50 MCG/ACT Nasal Suspension (Flonase) Administer 2 Sprays into nostril in the morning. 48 mL 3 traMADol HCl 50 MG Oral Tablet (Ultram) Take 2 Tablets by mouth every 6 hours as needed for Pain, Moderate. 120 Tablet 0 Spironolactone 100 MG Oral Tablet (Aldactone) TAKE 1 AND 1/2 TABLETS BY MOUTH EVERY DAY 135 Tablet 1 traZODone HCl 50 MG Oral Tablet (Desyrel) Take 1 Tablet by mouth at bedtime. 90 Tablet 1 Nebulizer Device For use with duoneb treatment 1 Each 0 predniSONE 20 MG Oral Tablet (Deltasone) Take 1 Tablet by mouth in the morning. every morning with food, as instructed.. (Patient not taking: Reported on 10/04/2022) 7 Tablet 0 predniSONE 10 MG Oral Tablet (Deltasone) Take 1 Tablet by mouth in the morning. (Patient not taking: Reported on 10/04/2022) 7 Tablet 0 Azithromycin 500 MG Oral Tablet (Zithromax) Take 1 Tablet by mouth in the morning. (Patient nottaking: Reported on 10/04/2022) 5 Tablet 0 Ipratropium-Albuterol 0.5-2.5 (3) MG/3ML Inhalation Solution (Duoneb) Inhale 3 mL via nebulizerin the morning and 3 mL at noon and 3 mL in the evening and 3 mL before bedtime. 3600 mL 11 No current facility-administered medications [...] performed by Naomie Magallanes MD at ENDOSCOPY [facility] COLONOSCOPY, DIAGNOSTIC (RECTUM) N/A 05/10/2016 COLONOSCOPY FLEXIBLE PROXIMAL DIAGNOSTIC performed by Jeffrey Weber MD at ENDOSCOPY [facility] COLONOSCOPY, DIAGNOSTIC (RECTUM) N/A 05/11/2022 COLONOSCOPY FLEXIBLE PROXIMAL DIAGNOSTIC performed by Jeffrey Weber MD at ENDOSCOPY [facility] EGD, FLEXIBLE, DIAGNOSTIC 05/30/2012 UPPER GI ENDOSCOPY DIAGNOSTIC performed by Cipriano Butler MD at ENDOSCOPY [facility] EGD, FLEXIBLE, DIAGNOSTIC 12/19/2012 UPPER GI ENDOSCOPY DIAGNOSTIC performed by Krupa Robledo DO at ENDOSCOPY [facility] EGD, FLEXIBLE, DIAGNOSTIC N/A 03/21/2014 ESOPHAGOGASTRODUODENOSCOPY (EGD), FLEXIBLE, TRANSORAL, DIAGNOSTIC performed by Mary Alejandro ENDOSCOPY [facility] EGD, FLEXIBLE, DIAGNOSTIC N/A 12/18/2014 ESOPHAGOGASTRODUODENOSCOPY (EGD), FLEXIBLE, TRANSORAL, DIAGNOSTIC performed by Jeffrey Weber MD at ENDOSCOPY [facility] EGD, FLEXIBLE, DIAGNOSTIC N/A 05/10/2016 ESOPHAGOGASTRODUODENOSCOPY (EGD), FLEXIBLE, TRANSORAL, DIAGNOSTIC performed by Jeffrey Weber MD at ENDOSCOPY [facility] EGD, FLEXIBLE, DIAGNOSTIC 06/11/2018 hiatal hernia, repeat 3 yrs/ESOPHAGOGASTRODUODENOSCOPY (EGD), FLEXIBLE, TRANSORAL, DIAGNOSTIC performed by Adelaida Sood MD at ENDOSCOPY [facility] EGD, FLEXIBLE, DIAGNOSTIC N/A 11/01/2019 ESOPHAGOGASTRODUODENOSCOPY (EGD), FLEXIBLE, TRANSORAL, DIAGNOSTIC performed by Michael Bar MD at ENDOSCOPY [facility] EGD, FLEXIBLE, DIAGNOSTIC N/A 05/11/2022 ESOPHAGOGASTRODUODENOSCOPY (EGD), FLEXIBLE, TRANSORAL, DIAGNOSTIC performed by Jeffrey Weber MD at ENDOSCOPY [facility] EXC BREAST LESION RADMARK Right 05/09/2017 EXCISION OF BREAST LESION RADIOLOGICAL MARKER performed by Vicky Bahena MD at OR [facility] INFORMATION 1998 bone spur/cyst & ganglia removal left foot x2 INJECT DX/THER SUBSTANCE INTERLAMINAR LUMBAR/SACRAL W IMAGE GUIDE 07/22/2021 INJECTION SPINE LUMBAR OR SACRAL performed by Wong Cornelius DO at OR [facility] INJECT DX/THER SUBSTANCE INTERLAMINAR LUMBAR/SACRAL W IMAGE GUIDE 11/16/2021 INJECTION SPINE LUMBAR OR SACRAL performed by Wong Cornelisu DO at OR [facility] INJECT DX/THER SUBSTANCE INTERLAMINAR LUMBAR/SACRAL W IMAGE GUIDE 06/15/2022 INJECTION SPINE LUMBAR OR SACRAL performed by Wong Cornelius DO at OR [facility] IR BIOPSY 07/02/2012 TRANSCATHETER BIOPSY performed by Fabian Larry MD at RADIOLOGY [facility] L-/S-SPINE PARAVERTEBRAL FACET INJ,1 LEVEL 02/15/2018 L-/S-SPINE PARAVERTEBRAL FACET INJ, 1 LEVEL performed by Wong Cornelius DO at OR [facility] L-/S-SPINE PARAVERTEBRL FACET INJ,2 LEVELS 02/15/2018 L-/S-SPINE PARAVERTEBRAL FACET INJ, 2 LEVELS performed by Wong Cornelius DO at OR [facility] LAPAROSCOPY; CHOLECYSTECTOMY 03/23/10 Dr Ingram LAPAROSCOPY;RMV ADNEXAL STRUCT Bilateral 03/19/2021 LAPAROSCOPIC OOPHORECTOMY AND OR SALPINGECTOMY performed by Randi Mukherjee DO at OR [facility] LIGATE/CUT OVIDUCT(S) 1993 Tubal Ligation LUMBAR / SACRAL EPIDURAL, SINGLE LEVEL 03/05/2018 INJECTION TRANSFORAMINAL EPIDURAL LUMBAR OR SACRAL performed by Wong Cornelius DO at OR [facility] MISCELLANEOUS ORDER ([facility] ONLY) 2001 torn retina repair at [facility] EYE NEEDLE BIOPSY OF LIVER 03/23/10 [...] by Beau Leroy Jr., MD at OR [facility] RIGHT HEART CATH W/ O2 SAT AND CO Right 06/30/2020 RIGHT HEART CATH W/ O2 SAT AND CO performed by Gwyn Akins DO at CARDIAC LABS [facility] SACROILIAC JOINT INJECT W/GUIDANCE 12/25/2017 INJECTION SACROILIAC JOINT performed by Wong Cornelius DO at OR [facility] Review of patient's allergies indicates: Allergen Reactions [...] file Tobacco Use Smoking status: Former Packs/day: 0.50 Years: 25.00 Pack years: 12.50 Types: Cigarettes Quit date: 06/09/2020 Years since quittin.3 Smokeless tobacco: Never Tobacco comments: 5-6 a day Vaping Use Vaping Use: Never used Substance and Sexual Activity Alcohol use: No Drug use: Not Currently Types: Marijuana Comment: has not used in "quite a while" Sexual activity: Yes Partners: Male control/protection: Surgical Comment: tubal 1994 Other Topics Concern Not on file Social History Narrative 05/06/13 With current partner since 1994 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 -Menarche at: 16 -Cycle Length: none since July 2012 -Days of Flow:0 -Cramps: 0 -PMS S&S: 0 - Control use:0 -Abnormal PAPs: none -Hx of Vaginal Infections:none -Coitis age:19 -Total partners:3 Social Determinants of Health Financial Resource Strain: Not on file Food Insecurity: No Food Insecurity Worried About Running Out of Food in the Last Year: Never true Ran Out of Food in the Last Year: Never true Transportation Needs: Not on file Physical Activity: Not on file Stress: Not on file Social Connections: Not on file Intimate Partner Violence: Not on file Housing Stability: Not on file Review of Systems Constitutional: Negative for chills and fever. HENT: Negative for congestion and sore throat. Eyes: Negative for photophobia and itching. Respiratory: Negative for apnea and cough. Cardiovascular: Negative for chest pain and palpitations. Gastrointestinal: Negative for abdominal distention, abdominal pain, nausea and vomiting. Genitourinary: Negative for dysuria and frequency. Musculoskeletal: Positive for arthralgias and joint swelling. Negative for myalgias. Skin: Negative for pallor and rash. Neurological: Negative for dizziness, light-headedness and headaches. Psychiatric/Behavioral: Negative for sleep disturbance. The patient is not nervous/anxious. Objective BP 100/52 | Pulse 63 | Temp 35.9 C (96.6 F) (Tympanic) | Resp 20 | Wt 48.1 kg (106 lb) | LMP 07/09/2012 | SpO2 89% | BMI 17.12 kg/m | BSA 1.5 m Physical Exam Constitutional: General: She is [...] mass. Tenderness: There is no abdominal tenderness. Musculoskeletal: General: Swelling and tenderness present. No deformity. Normal range of motion. Cervical back: Normal range of motion and neck supple. Right lower leg: No edema. Left lower leg: No edema. Comments: There is some tenderness and swelling along the dorsal left foot. Does not seem to be anybruising. Sensation intact in all toes. NEWSPAPER EDITOR and DP pulses intact Lymphadenopathy: Cervical: No cervical adenopathy. Skin: General: Skin is warm and dry. Coloration: Skin is not jaundiced. Findings: No rash. Comments: Healed laceration left dorsal foot. No signs of secondary infection around scar Neurological: General: No focal deficit present. Mental Status: She is oriented to person, place, and time. Cranial Nerves: No cranial nerve deficit. Sensory: No sensory deficit. Motor: No weakness. Psychiatric: Mood and Affect: Mood normal. Behavior: Behavior normal. ASSESSMENT/PLAN: Left foot pain (Primary) - XR FOOT 3 OR MORE VIEWS Plan: Patient presents with persistent left foot pain. Jump to-on foot around . Did suffer a laceration that was repaired at [facility] Laceration appears healed. No signs of secondary infection at scar. There is some tenderness and swelling the dorsal foot. Possible bone bruise or maybe minor fracture. Explained to patient that should continue elevation and ice application a few times a day Will check x-ray of her left foot. Will follow-up results Continue other meds/management Follow Up: Return in about 3 months (around 01/04/2023), or if symptoms worsen or fail to improve, for Follow up next routine with PCP as scheduled. | For: Follow up next routine with PCP as scheduled| Check-out note: Follow up pending xray results Xray left foot today I spent a total of 30-39 minutes (exact time 35 mins) on the date of service in preparation, delivery, and documentation of the care provided to Jazmín Blevins excluding any time spent in the performance of separately billed services. Reggie Eddy DO documented in this encounter Nursing Notes * Eliot Cunningham LPN - 10/04/2022 2:49 PM EDT The patient has been properly identified by confirmation of name and date of . Pt c/o laceration to top of left foot about a month ago. Had sutures, which were removed 10 days later. Still having trouble with pain and swelling in the area. documented in this encounter Plan of Treatment Upcoming Encounters Date Type Specialty Care Team Description 11/01/2022 Office Visit Family Medicine Reggie Eddy DO [address], [place] [phone] 01/04/2023 Telemedicine Endocrinology Gilbert Hawkins MD [address] [place] [address] 01/09/2023 Office Visit Ophthalmology Fran French DO [address] [place], [place] [phone] Pending Results Name Type Priority Associated Diagnoses Date /Time XR FOOT 3 OR MORE VIEWS Medical Imaging Routine Left foot pain 10/04/2022 3:23 PM EDT Scheduled Procedures Name Priority Associated Diagnoses Date/Ti me INJECTION SPINE LUMBAR OR SACRAL Lumbar radiculopathy ESOPHAGOGASTRODUODENOSCOPY ( EGD), FLEXIBLE, TRANSORAL, DIAGNOSTIC Recall [...] Additional history exists Influenza Vaccine (FLU shot) (Season Ended) 2022 TSH 04/01/2023 04/01/2022, 01/09, 06/10/2020, Additional [...] this encounter Medical Devices Implanted Type Area Railway Yard Assistant Device Identifier Shelf Expiration Date Model / Serial / Lot Lens 22.0 Sa60at - [id number] Implanted:Qty: 1 on 10/15/2012 at OR [facility] Left: Eye [employer] 10/07/2016 SA60AT / [id number] / Lens 22.0 Sa60at - [id number] Implanted:Qty: 1 on 11/29/2012 at OR [facility] Right: Eye [employer] 03/31/2017 SA60AT / [id number] / Duraclip 11mm Repositionable - [id number] Implanted:Qty: 1 on 05/11/2022 by Jeffrey Weber MD at ENDOSCOPY [facility] [employer] [id number] 01/29/2024 [id number] / / [id number] documented as of this encounter Visit Diagnoses Diagnosis Left foot pain- Primary Pain in limb documented [...] the patient have Health Care Power of Pyridine Operator? No Full Code 12/06/2019 4:21 AM [...] the patient have Health Care Power of Pyridine Operator? No Care Teams Neurological Surgery Teacher Relationship Specialty Start Date End Date Reggie Eddy, [place] [address] PCP - General Internal Medicine 03/08/22 documented as of this encounter
--- OUTSIDE RECORDS SUMMARY | 2023-03-19 22:34 | External Medical Summary | Summary of Care ---
Author Name Unknown Organization [facility] Address [address] [place] [address] Phone [phone] Care Team Providers Care Pulpwood Buyer Name Role Phone Reggie Wei DO Primary Care Provid er Reason for Visit * Reason Onset Date Comments Medication Refill 09/28/2022 Encounter Details Date Type Department Care Team Description 09/28/[address] [phone] Reggie Wei DO [address] [place] [phone] Primary insomnia Allergies Active Allergy Reactions Severity Noted Date Comments Hydromorphone Hcl Itching Medium 11/09/2015 Environmental Low 05/04/2010 Pollen -asthmatic attacks documented as of this encounter (statuses as of 09/30/2022) Medications Medication Sig Dispensed Refills Start Date [...] or Wheezing. 18 g 5 03/11/2022 Active predniSONE 20 MG Oral Tablet (Deltasone) Take 1 Tablet by mouth in the morning. every morning with food, as instructed.. 7 Tablet 0 05/17/2022 Active Spiriva HandiHaler 18 MCG Inhalation Capsule (tiotropium bromide) Inhale 1 Capsule by mouth in the morning. . Do not swallow capsule.. 30 Capsule 5 05/20/2022 Active predniSONE 10 MG Oral Tablet (Deltasone) Take 1 Tablet by mouth in the morning. 7 Tablet 0 05/20/2022 Active Azithromycin 500 MG Oral Tablet (Zithromax) Take 1 Tablet by mouth in the morning. 5 Tablet 0 05/20/2022 Active Nadolol 40 MG Oral Tablet [...] into nostril in the morning. 48 mL 09/09/2022 Active traMADol HCl 50 MG Oral [...] at bedtime. 90 Tablet 1 09/30/2022 Active traZODone HCl 50 MG Oral Tablet (Desyrel)Indication s:Primary insomnia Take 1 Tablet by mouth at bedtime. 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 dsDNA borderline. [place] unlikely SLE. o 2012: Seen again by Rheum- Dr. Jung- photosensitive rash and raynauds. Borderline dsDNA. [place] likely SLE, though possible AIH could explain (+) MARY. HCQ discussed but wanted to avoid by GI. o [phone]: multiple hospitalizations for ascites; returned to Rheum 2019- no objective synovitis Esophageal varices in cirrhosis 07/28/19 MEDICATION USE AGREEMENT 06/13/2017 Disordered sleep 12/14/2016 Controlled substance agreement signed Normocytic anemia 12/19/2012 PPD positive, treated 12/17/2012 Serologic abnormality 07/05/2010 Esophageal reflux 05/19/2010 Postoperative hypothyroidism 01/23/2002 HISTORY OF TOBACCO USE 01/23/2002 Autoimmune hepatitis documented as of this encounter (statuses as of 09/30/2022) Resolved Problems Problem Noted Date Resolved Date [...] as of this encounter (statuses as of 09/30/2022) Immunizations Name Administration Dates Next Due HEP [...] got money to buy more. Never true 01/02/2020 Within the past 12 months, t he food you bought just didn't last and you didn't have money to get more. Never true 01/02/2020 Sex Assigned at Date Recorded Female 09/13/2018 [...] encounter Miscellaneous Notes * Telephone Encounter - Vasile Sanches RPh - 09/30/2022 8:30 AM EDT Signed Prescriptions: Disp Refills traZODone HCl 50 MG Oral Tablet (Desyrel) 90 Tab*1 Sig: Take 1 Tablet by mouth at bedtime.Authorizing Provider: REGGIE WEI User: VASILE SANCHES documented in this encounter Plan of Treatment Upcoming Encounters Date Type Specialty Care Team Description 11/01/2022 Office Visit Family Medicine Reggie Wei DO [address], [place] [phone] 01/04/2023 Telemedicine Endocrinology Gilbert Hawkins MD [address] [place] [address] 01/09/2023 Office Visit Ophthalmology Fran French DO [address] [place] [address] Scheduled Procedures Name Priority Associated [...] this encounter Medical Devices Implanted Type Area Cat Scanner Operator Device Identifier Shelf Expiration Date Model / Serial / Lot Lens 22.0 Sa60at - [id number] Implanted:Qty: 1 on 10/15/2012 at OR [facility] Left: Eye [employer] 10/07/2016 SA60AT / [id number] / Lens 22.0 Sa60at - [id number] Implanted:Qty: 1 on 11/29/2012 at OR [facility] Right: Eye [employer] 03/31/2017 SA60AT / [id number] / Duraclip 11mm Repositionable - [id number] Implanted:Qty: 1 on 05/11/2022 by Jeffrey Weber MD at ENDOSCOPY [facility] [employer] [id number] 01/29/2024 [id number] / / [id number] documented as of this encounter Visit [...] the patient have Health Care Power of Toll Transmission Worker? No Full Code 12/06/2019 4:21 AM 12/11/2019 [...] the patient have Health Care Power of Toll Transmission Worker? No Care Teams Pulpwood Buyer Relationship Specialty Start Date End Date Reggie Wei, DO [address] [place] [address] PCP - General Internal Medicine 03/08/22 documented as of this encounter
--- OUTSIDE RECORDS SUMMARY | 2023-03-19 22:34 | External Medical Summary | Summary of Care ---
Author Name Unknown Organization [facility] Address [address] [place] [address] Phone [phone] Care Team Providers Care Palliative Care Coordinator Name Role Phone Reggie Eddy Primary Care Provid er Reason for Visit * Reason Onset Date Comments Follow Up 10/04/2022 Encounter Details Date Type Department Care Team Description 10/04/2022 Telephone Interventional Pain Center, [facility] [address] [facility] [place] [address] CousinsWong WanderDO [address] [place] [address] Follow Up Allergies Active Allergy Reactions Severity Noted Date [...] and 1 Tablet before bedtime. 180 Tablet 09/09/2022 Active Fluticasone Propionate 50 MCG/ACT Nasal [...] at bedtime. 90 Tablet 1 09/30/2022 Active documented as of this encounter (statuses [...] typical SLE sx- negative/normal C3/C4, SSA/SSB, centromere, REMEDIATION CONSULTANT/Sm, ESR,CRP. dsDNA borderline. [place] unlikely SLE. o 2012: Seen again by Rheum- Dr. Jung- photosensitive rash and raynauds. Borderline dsDNA. [place] likely SLE, though possible AIH could explain (+) MARY. HCQ discussed but wanted to avoid by GI. o [id number]: multiple hospitalizations for ascites; returned to Rheum [...] as of this encounter Miscellaneous Notes * Addendum Note - Wong Ramos DO - 10/04/2022 12:05 PM EDTAddended by: WONG RAMOS on: 10/04/2022 12:05 PM Modules accepted: Orders * Telephone Encounter - Wong Ramos DO - 10/04/2022 12:04 PM EDT Order placed for injection. * Telephone Encounter - Iva Azul - 10/04/2022 11:57 AM EDT Patient states she had 70% relief from her injection. The pain started to come back about 2 months ago and now it is getting progressively worse. documented in this encounter Plan of Treatment Upcoming Encounters Date Type Specialty Care Team Description 10/04/2022 Office Visit Family Medicine Reggie Eddy, DO [address] [place] [address] 11/01/2022 Office Visit Family Medicine Reggie Eddy, DO [address] [place] [address] 01/04/2023 Telemedicine Endocrinology Gilbert Hawkins MD [address] [place] [address] 01/09/2023 Office Visit Ophthalmology Fran French, DO [address] [place] [address] Scheduled Orders Name Type Priority Associated Diagnoses Orde r Schedule INJECT DX/THER SUBSTANCE INTERLAMINAR LUMBAR/SACRAL W IMAGE GUIDE Procedures Routine Lumbar radicular pain Expected: 10/18/2022, Expires: 11/04/2023 Scheduled Procedures Name Priority Associated Diagnoses Date/Ti [...] this encounter Medical Devices Implanted Type Area Window Shade Ring Coverer Device Identifier Shelf Expiration Date Model / Serial / Lot Lens 22.0 Sa60at - [id number] Implanted:Qty: 1 on 10/15/2012 at [facility] Left: Eye [employer] 10/07/2016 SA60AT / [id number] / Lens 22.0 Sa60at - [id number] Implanted:Qty: 1 [place] [facility] [place] Eye [employer] 03/31/2017 SA60AT / [id number] / Duraclip 11mm Repositionable - [id number] Implanted:Qty: 1 on 05/11/2022 by Jeffrey Weber MD [place] [facility] [place] [employer] [id number] 01/29/2024 [id number] / / [id number] documented as of this encounter Visit Diagnoses Diagnosis Lumbar radicular pain- Primary Thoracic or lumbosacral neuritis or radiculitis, unspecified [...] the patient have Health Care Power of Digital Director? No Full Code 12/06/2019 4:21 AM 12/11/2019 [...] the patient have Health Care Power of Digital Director? No Care Teams Palliative Care Coordinator Relationship Specialty Start Date End Date Reggie Eddy, [place] [address] PCP - General Internal Medicine 03/08/22 documented as of this encounter
--- OUTSIDE RECORDS SUMMARY | 2023-03-19 22:34 | External Medical Summary | Summary of Care ---
Author Name Unknown Organization [facility] Address [address] [place] [address] Phone [phone] Care Team Providers Care Stereoptician Name Role Phone Reggie Eddy Primary Care Provid er Reason for Visit * Reason Onset Date Comments Follow Up 10/04/2022 Encounter Details Date Type Department Care Team Description 10/04/2022 Telephone Interventional Pain Center, [facility] [address] [facility] [place] [address] CousinsWong WanderDO [address] [facility] [place] [address] Follow Up Allergies Active Allergy Reactions Severity [...] typical SLE sx- negative/normal C3/C4, SSA/SSB, centromere, SLAB WORKER/Sm, ESR,CRP. dsDNA borderline. [place] unlikely SLE. o 2012: Seen again by Rheum- Dr. Jung- photosensitive rash and raynauds. Borderline dsDNA. [place] likely SLE, though possible AIH could explain (+) MARY. HCQ discussed but wanted to avoid by GI. o [phone]: multiple hospitalizations for ascites; returned to Rheum [...] Visit Family Medicine Reggie Eddy, DO [address] [place] [address] 11/01/2022 Office Visit Family Medicine Reggie Eddy, DO [address] [place] [address] 01/04/2023 Telemedicine Endocrinology Gilbert Hawkins MD [address] [place] [address] 01/09/2023 Office Visit Ophthalmology Fran French, DO [address] [place] [address] Scheduled Orders Name Type Priority Associated Diagnoses [...] this encounter Medical Devices Implanted Type Area Doughnut Icer Machine Device Identifier Shelf Expiration Date Model / Serial / Lot Lens 22.0 Sa60at - [id number] Implanted:Qty: 1 on 10/15/2012 at [facility] Left: Eye [employer] 10/07/2016 SA60AT / [id number] / Lens 22.0 Sa60at - [id number] [place]ed:Q[place] 1 [place] 11[place]29[place] [facility] [place] Eye [employer] 03/31/2017 SA60AT / [id number] / Duraclip 11mm Repositionable - [id number] Implanted:Qty: 1 on 05/11/2022 [place] Jeffrey Weber [place] [facility] [place] [employer] [id number] 01/29/2024 [id number] / / [id number] documented as of this encounter Visit [...] the patient have Health Care Power of Automotive Glazier? No Full Code 12/06/2019 4:21 AM 12/11/2019 [...] the patient have Health Care Power of Automotive Glazier? No Care Teams Stereoptician Relationship Specialty Start Date End Date Reggie Eddy, [place] [address] PCP - General Internal Medicine 03/08/22 documented as of this encounter
--- OUTSIDE RECORDS SUMMARY | 2023-03-19 22:34 | External Medical Summary | Summary of Care ---
Author Name Unknown Organization [facility] Address [address] [place] [address] Phone [phone] Care Team Providers Care Card Cutter Helper Name Role Phone Reggie Wei DO Primary Care Provid er Reason for Visit * Reason Comments eRx-Medication Refill Encounter Details Date Type Department Care Team Description 09/23/[address] [address] Reggie Wei DO [address] [place] [id number] Esophageal varices in cirrhosis (HCC) Allergies Active Allergy Reactions Severity Noted Date Comments Hydromorphone Hcl Itching Medium 11/09/2015 Environmental Low 05/04/2010 Pollen -asthmatic attacks documented as of this encounter (statuses as of 09/25/2022) Medications Medication Sig Dispensed Refills Start Date [...] or Wheezing. 18 g 5 2 Active predniSONE 20 MG Oral Tablet (Deltasone) Take 1 Tablet by mouth in the morning. every morning with food, as instructed.. 7 Tablet 0 3 Active Spiriva HandiHaler 18 MCG Inhalation Capsule (tiotropium bromide) Inhale 1 Capsule by mouth in the morning. . Do not swallow capsule.. 30 Capsule 5 3 Active predniSONE 10 MG Oral Tablet (Deltasone) Take 1 Tablet by mouth in the morning. 7 Tablet 0 3 Active Azithromycin 500 MG Oral Tablet (Zithromax) Take 1 Tablet by mouth in the morning. 5 Tablet 0 3 Active Nadolol 40 MG Oral Tablet (Corgard)Indication s:Rectal varices,Esophageal varices in cirrhosis (HCC) Take 1 Tablet by mouth in the morning. 90 Tablet 1 3 Active Omeprazole 20 MG Oral Capsule [...] at bedtimes 180 Capsule 1 3 Active Levothyroxine Sodium 150 MCG Oral Tablet (Levoxyl)Indication s:Postoperative hypothyroidism Take 1 Tablet by mouth daily first thing in the morning. (at least 30 min prior to breakfast or other meds) 90 Tablet 1 3 Active Fluticasone Furoate-Vilanterol 200-25 MCG/ACT [...] and 3 mL before bedtime. 3600 mL 3 Active traZODone HCl 50 MG Oral Tablet (Desyrel)Indication s:Primary insomnia Take 1 Tablet by mouth at bedtime. 90 Tablet 1 3 Active Mycophenolate Mofetil 500 MG Oral Tablet (Cellcept)Indicatio ns:Autoimmune hepatitis (HCC) Take 1 Tablet by mouth in the morning and 1 Tablet before bedtime. 180 Tablet 1 3 Active Fluticasone Propionate 50 MCG/ACT Nasal Suspension (Flonase)Indication s:Nasal congestion Administer 2 Sprays into nostril in the morning. 48 mL 3 3 Active traMADol HCl 50 MG Oral Tablet (Ultram)Indications :MEDICATION USE AGREEMENT,DDD (degenerative disc disease), cervical,DDD (degenerative disc disease), thoracic,DDD (degenerative disc disease), lumbar Take 2 Tablets by mouth every 6 hours as needed for Pain, Moderate. 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 dsDNA borderline. [place] unlikely SLE. o 2012: Seen again by Rheum- Dr. Jung- photosensitive rash and raynauds. Borderline dsDNA. [place] likely SLE, though possible AIH could explain (+) MARY. HCQ discussed but wanted to avoid by GI. o [id number]: multiple hospitalizations for ascites; returned to Rheum 2019- no objective synovitis Esophageal varices in cirrhosis 07/28/19 MEDICATION USE AGREEMENT 06/13/2017 Disordered sleep 12/14/2016 Controlled substance agreement signed Normocytic anemia 12/19/2012 PPD positive, treated 12/17/2012 Serologic abnormality 07/05/2010 Esophageal reflux 05/19/2010 Postoperative hypothyroidism 01/23/2002 HISTORY OF TOBACCO USE 01/23/2002 Autoimmune hepatitis documented as of this encounter (statuses as of 09/25/2022) Resolved Problems Problem Noted Date Resolved Date [...] as of this encounter (statuses as of 09/25/2022) Immunizations Name Administration Dates Next Due HEP [...] Telephone Encounter - Reggie Wei DO - 09/25/2022 12:21 PM EDT Signed Prescriptions: Disp Refills Spironolactone 100 MG Oral Tablet (Aldacto*135 Ta*1 Sig: TAKE 1 AND 1/2 TABLETS BY MOUTH EVERY DAY Authorizing Provider: REGGIE WEI * Telephone Encounter - Shauna Piedra [facility] - 09/24/2022 11:06 AM EDTPending Prescriptions: Disp Refills Spironolactone 100 MG Oral Tablet [Pharmac*135 Ta*1 Sig: TAKE 1 AND 1/2 TABLETS BY MOUTH EVERY DAY * Telephone Encounter - Shauna Piedra [facility] - 09/24/2022 11:05 AM EDT Unable to authorize medication refills for pended medication(s) at this time. Part of the protocol criteria used for refill authorization was not satisfied. Patient needs CMP wnl. Please approve if appropriate. Thanks, Shauna Piedra, PharmD Clinical Pharmacist [facility] [phone] 09/24/2022 11:05 AM * Telephone Encounter - Shauna Piedra [facility] - 09/24/2022 11:02 AM EDT Pending Prescriptions: Disp Refills Spironolactone 100 MG Oral Tablet (Aldact*135 Ta*1 Sig: TAKE 1 AND 1/2 TABLETS BY MOUTH EVERY DAY Last Visit: 07/19/2022 (in office), Visit date not found (telemedicine) Next Visit: 11/01/2022 If no future appointments scheduled, and last appointment is greater than a year ago, please schedule patient for a follow-up appointment Last date the medication was ordered: 03/16/22 Pharmacy: [id number] [place] [address] Is this request for a controlled substance? No Urine Drug Screen: Results for orders placed or performed in [...] results can be found in Results Review. Patient Phone Numbers Labs: Lab Results Component Value Date/Time CREAT 0.9 07/26/2022 11:01 AM CREAT 1.0 04/17/2020 11:05 AM CREAT 0.8 01/10/1996 10:40 AM POTASSIUM 2.6 (L) 07/26/2022 11:01 AM POTASSIUM 3.2 (L) 03/19/2021 09:02 AM POTASSIUM 4.2 04/17/2020 11:05 AM TSH 1.75 04/01/2022 11:27 AM TSH 7.12 (H) 04/17/2020 11:05 AM TSH 10.46 (H) 02/02/1996 09:31 AM LDLCALC 83 02/28/2019 01:41 PM ALT 10 07/26/2022 11:01 AM ALT 37 (H) 01/23/2020 10:17 AM HGBA1C 6.1 (H) 09/20/2021 12:21 PM HGBA1C 5.6 12/03/2019 12:36 PM documented in this encounter Plan of Treatment Upcoming Encounters Date Type Specialty Care Team Description 11/01/2022 Office Visit Family Medicine Reggie Wei, DO [address] [place] [address] 01/04/2023 Telemedicine Endocrinology Gilbert Hawkins MD [address] [place] [address] 01/09/2023 Office Visit Ophthalmology Fran French DO [address] [place] [address] Scheduled Procedures Name Priority Associated [...] this encounter Medical Devices Implanted Type Area Certified Juvenile Probation Officer Device Identifier Shelf Expiration Date Model / Serial / Lot Lens 22.0 Sa60at - [id number] Implanted:Qty: 1 on 10/15/2012 at OR [facility] Left: Eye [employer] 10/07/2016 SA60AT / [id number] / Lens 22.0 Sa60at - [id number] Implanted:Qty: 1 [place] 11[place]29[place]2012 [place] [facility] [place] Eye [employer] 03/31/2017 SA60AT / [id number] / Duraclip 11mm Repositionable - [id number] Implanted:Qty: 1 on 05/11/2022 by Jeffrey Weber [place] [facility] [place] [employer] [id number] 01/29/2024 [id number] / / [id number] documented as of this encounter Visit Diagnoses Diagnosis Esophageal varices in cirrhosis (HCC) Cirrhosis of [...] the patient have Health Care Power of Trimming Machine Set Up Operator? No Full Code 12/06/2019 4:21 AM [...] the patient have Health Care Power of Trimming Machine Set Up Operator? No Care Teams Card Cutter Helper Relationship Specialty Start Date End Date Reggie Wei, DO [address] [place] [id number] PCP - General Internal Medicine 03/08/22 documented as of this encounter
--- OUTSIDE RECORDS SUMMARY | 2023-03-19 22:34 | External Medical Summary | Summary of Care ---
Author Name Unknown Organization [facility] Address [address] [place] [address] Phone [phone] Care Team Providers Care Electric Meter Tester Name Role Phone Reggie Eddy Primary Care Provid er Reason for Visit * Reason Comments Joint Pain Bilat shoulder Encounter Details Date Type Department Care Team Description 10/18/2022 Office Visit Orthopaedics [address] [place] [address] Gwyn Mcgill MD [facility] [place] [address] Nontraumatic partial bilateral rotator cuff [...] cuff tear 2 mL IJ ONCE 10/18/2022 10/18/2022 Ended lidocaine 1% 1 mL - triamcinolone acetonide 40 mg/mL 1 mL inj 2 mLIndications:Nontraumatic partial bilateral rotator cuff tear 2 mL IJ ONCE 10/18/2022 10/18/2022 Ended documented as of this encounter (statuses as [...] typical SLE sx- negative/normal C3/C4, SSA/SSB, centromere, ELEMENTARY PRINCIPAL/Sm, ESR,CRP. dsDNA borderline. [place] unlikely SLE. o 2012: Seen again by Rheum- Dr. Jung- photosensitive rash and raynauds. Borderline dsDNA. [place] likely SLE, though possible AIH could explain (+) MARY. HCQ discussed but wanted to avoid by GI. o [phone]: multiple hospitalizations for ascites; returned to Rheum [...] Visit Family Medicine Reggie Eddy DO [address] [facility] [place] [address] 11/09/2022 Hospital Encounter Surgery Wong Cornelius DO [address] [place] [address] 11/09/2022 Surgery Surgery CousinsWong, DO [address] [place] [address] INJECTION SPINE LUMBAR OR SACRAL 01/04/2023 Telemedicine Endocrinology Gilbert Hawkins MD [address] [place] [address] 01/09/2023 Office Visit Ophthalmology Fran French DO [address] [place] [address] Scheduled Orders Name Type Priority [...] this encounter Medical Devices Implanted Type Area Pattern Hand Device Identifier Shelf Expiration Date Model / Serial / Lot Lens 22.0 Sa60at - [id number] Implanted:Qty: 1 on 10/15/2012 at OR [facility] Left: Eye [employer] 10/07/2016 SA60AT / [id number] / Lens 22.0 60at - [id number] Implanted:Qty: 1 on 11/29/2012 [place] [facility] [place] Right: Eye [employer] 03/31/2017 SA60AT / [id number] / Duraclip 11mm Repositionable - [id number] Implanted:Qty: 1 on 05/11/2022 by Jeffrey Weber MD at [facility]OSCOPY [facility] [place] [employer] [id number] 01/29/2024 [id number] / / [id number] documented as of this encounter Visit Diagnoses Diagnosis Nontraumatic partial bilateral rotator cuff tear- Primary Lumbar radiculopathy Thoracic or lumbosacral neuritis or radiculitis, unspecified documented in this encounter Administered Medications Inactive Administered Medications - up to 3 most recent administrations Medication Order MAR Action Action Date Dose Rate Site lidocaine 1% 1 mL - triamcinolone acetonide 40 mg/mL 1 mL inj 2 mL 2 mL, Injection, ONCE, On Mon10/18/22 at 1330, For 1 dose, lidocaine 1% 1 mL - triamcinolone acetonide 40 mg/mL 1 mL inj TOTAL VOLUME 2 mL SYRINGE REFRIGERATE and SHAKE WELL Given 10/18/2022 1:16 PM EDT 2 mL Shoulder Right lidocaine 1% 1 mL - triamcinolone acetonide 40 mg/mL 1 mL inj 2 mL 2 mL, Injection, ONCE, On Mon10/18/22 at 1330, For 1 dose, lidocaine 1% 1 mL - triamcinolone acetonide 40 mg/mL 1 mL inj TOTAL VOLUME 2 mL SYRINGE REFRIGERATE AND SHAKE WELL Given 10/18/2022 1:16 PM EDT 2 mL Shoulder Left documented in this encounter Advance Directives Latest [...] the patient have Health Care Power of Switching Clerk? No Full Code 12/06/2019 4:21 AM [...] the patient have Health Care Power of Switching Clerk? No Care Teams Electric Meter Tester Relationship Specialty Start Date End Date Reggie Eddy, [place] [address] PCP - General Internal Medicine 03/08/22 documented as of this encounter
[2023-03-19] MEDS: cefTRIAXone SODIUM 1,000 MG in DEXTROSE 5 % MINI-B 50 ML IV SCH (23:05)
[2023-03-19] MEDS: traZODone HCL 50 MG TAB PO SCH (23:10)
[2023-03-19] MEDS: GABAPENTIN 600 MG TAB PO SCH (23:10)
[2023-03-19] MEDS: CALCIUM CITRATE 950 MG TAB PO SCH (23:10)
[2023-03-19] MEDS: FERROUS SULFATE 325 MG TAB PO SCH (23:11)
[2023-03-19] MEDS: MYCOPHENOLATE MOFETIL 250 MG CAP PO SCH (23:11)
[2023-03-19] MEDS ORDERED: Patient's ALLERGY Info needs ENTERED STA (23:19)
[2023-03-19] MEDS ORDERED: LACTULOSE SYRUP 20 GM/30 ML UDC PO PRN (23:29)
[2023-03-20 01:10] LABS: Hematocrit (blood only) 24.4 % (37.0-47.0); Hemoglobin 8.1 g/dl (12.0-16.0)
[2023-03-20] MEDS: PANTOprazole 40 MG in DEXTROSE 5% MINI-B 100 ML IV SCH ×5 (01:31→21:50)
[2023-03-20 04:19] LABS: HCO3 VBG 29 mmol/L; Oxygen Saturation VBG 79.8 %; PCO2 VBG 46 mmHg (38-50); PO2 VBG 50 mmHg
[2023-03-20 04:26] LABS: Basophils # (auto) 0.07 K/uL (0.00-0.20); Basophils % (auto) 1.1 %; Eosinophils # (auto) 0.14 K/uL (0.00-0.50); Eosinophils % (auto) 2.2 %; Hematocrit (blood only) 22.6 % (37.0-47.0); Hemoglobin 7.4 g/dl (12.0-16.0); Immature Granulocytes # (auto) 0.01 K/uL (0.01-0.20); Immature Granulocytes % (auto) 0.2 %; Lymphocytes # (auto) 1.56 K/uL (1.20-3.40); Lymphocytes % (auto) 24.7 %; Mean Corpuscular Hemoglobin 26.5 pg (25.0-34.0); Mean Corpuscular Hgb Conc 32.7 g/dL (32.0-36.0); Mean Platelet Volume 11.9 fL (9.4-12.4); Monocytes % (auto) 11.1 %; Neutrophils # (auto) 3.84 K/uL (1.40-6.50); Neutrophils % (auto) 60.7 %; Platelet Count 149 K/uL (130-400); RDW Coefficient of Variation 15.9 % (11.5-14.5); RDW Standard Deviation 46.5 fL (36.4-46.3); Red Blood Count 2.79 M/uL (4.20-5.40); White Blood Count 6.32 K/ul (4.8-10.8)
[2023-03-20 04:48] LABS: Albumin Globulin Ratio 1.1 (0.9-2); Albumin Level 2.4 gm/dl (3.4-5.0); Bilirubin,Total 1.1 mg/dl (0.2-1.0); Calcium 7.5 mg/dl (8.6-10.3); Est GFR (African American) 71.9 ml/min; Est GFR (Non-African American) 62.1 ml/min; Globulin 2.2 gm/dl (2.5-4.0); Magnesium 2.1 mg/dl (1.7-2.4); Phosphorus 2.8 mg/dl (2.5-4.9); Potassium 3.2 mmol/L (3.5-5.1); Total Protein 4.6 gm/dl (6.0-8.3)
[2023-03-20 04:57] LABS: Hypochromasia Present; Polychromasia 1+
[2023-03-20] MEDS: LEVOTHYROXINE SODIUM 150 MCG TABLET PO SCH (06:13)
--- NOTE | 2023-03-20 07:27 | XRay Report ---
XR chest 1V portable HISTORY: 58 years-old Female hypoxia acute hypoxia COMPARISON: 03/19/2023 TECHNIQUE: AP view of the chest FINDINGS: Cardiac silhouette is enlarged. Subsegmental bibasilar densities. Suggestion of pulmonary emphysema. No pneumothorax, large pleural effusion or overt pulmonary edema. Degenerative changes of the shoulde rs and spine. IMPRESSION: 1. Cardiomegaly without acute process of the chest. 2. Mild bibasilar opacities suggest atelectasis. ACT 112: Negative or not required by law. The above report was generated using voice recognition software. It may contain grammatical, syntax o r spelling errors. Electronically signed by: Yifan Jackson M.D. 03/20/2023 7:26 AM
[2023-03-20] MEDS ORDERED: MAGNESIUM CHLORIDE W/CALCIUM 64MG DELAYED REL TAB PO SCH (09:00)
[2023-03-20] MEDS ORDERED: PANTOprazole 40 MG TAB PO SCH (09:00)
--- NOTE | 2023-03-20 09:04 | Gastrointestinal Consultation ---
Date of Consultation March 20, 2023 Assessment & Plan (1) Symptomatic anemia: 58 year old female with history of COPD, emphysema, chronic respiratory failures, prediabetes, pulmonary HTN, raynauds, GERD, autoimmune hepatitis and cirrhosis who presents to the ED for evaluation of GI bleeding, hematemesis and BRBPR Monday/Monday NPO until discussed with attending Trend H&H Monitor and document GI output Transfuse PRN per primary team Continue IV PPI as ordered Continue IV octreotide as ordered Contive IV ABX Recommend EGD, timing to be determined by endoscopist Cirrhosis Maintenance - Continue follow up with [facility] hepatology - ABD US and AFP every 6 months for HCC screening - Spironolactone 100 mg daily, torsemide 20 mg daily. - Nadolol 40 mg daily for primary ppx. - Continue Cellcept 500 mg BID - Continue to follow pulm for management of pulmHTN. - Continue lactulose We appreciate assistance in the management of any serological abnormality and corrections to include: hemoglobin >7, INR <2, platelets >50,000, potassium levels >3.5 but <5.3, and sodium levels within 5 points of the reference range prior to endoscopic evaluation. Supervising Physician Co-Signing Physician Notes I have personally seen and examined the patient with YOGESH Mack. Her note reflects my exam and findings. I agree with her impression and plan. Will arrange upper endoscopy. Keep patient on clears and n.p.o. after midnight. Follow H&H. If patient rebleeds may need to be transferred to a location that offers interventional radiology for possible TIPS procedure. Marcos Saleh MD History of Present Illness Reason for Consultation: GI bleed Requesting Physician: Audie Attending Physician: Navi Bronson MD History of Present Illness 58 year old female with history of COPD, emphysema, chronic respiratory failures, prediabetes, pulmonary HTN, raynauds, GERD, autoimmune hepatitis and cirrhosis who presents to the ED for evaluation of GI bleeding - GI asked to evaluate, pt was seen and chart reviewed. She notes Monday evening/Monday AM she had an upset stomach. Shortly after this, she had large amounts of emesis at home (2/3 bouts). Emesis was all bright red blood in color. She notes this was followed by black stools. She called EMS at notes around EMS arrival that was the last bout of hematemsis. Since arrival to [facility], she reports 2 BMs. The first stool was black, the second stools she was told was starting to become brown. This AM she feels well. Denies abd pain, nausea, vomiting, lightheadedness, dizziness, CP, SOB. Admitted to [facility] for anemia. EGD done 12/21/22 showed no etiology for bleeding. Colonoscopy done 12/23/22 showed multiple non-bleeding colonic angiodysplastic lesions, treated with APC Admitted again to [facility] 12/31/22 - 01/03/23 for rectal bleeding. Underwent colonoscopy 01/02/23 non-bleeding angiodysplastic lesions which were treated with APC. Had a VCE wich was normal MELD 10 VCE 01/02/23:No source of bleeding identified Colonoscopy 01/02/23: The examined portion of the ileum was normal. - A few non-bleeding colonic angiodysplastic lesions. Treated with argon plasma coagulation (APC). - A single non-bleeding colonic angiodysplastic lesion. Treated with argon plasma coagulation (APC). - Internal hemorrhoids. - No specimens collected. Colonoscopy 12/23/22: Multiple non-bleeding colonic angiodysplastic lesions. Treated with argon plasma coagulation (APC). - One 3 mm polyp in the cecum, removed with a cold biopsy forceps. Resected and retrieved. - Previous stent in the transverse colon. - Erythematous mucosa in the ascending colon. - Rectal varices. - Non-bleeding internal hemorrhoids. - Hemorrhoids found on perianal exam. EGD 12/21/22: Esophageal plaques were found, consistent with candidiasis. - LA Grade A reflux esophagitis with no bleeding. - 3 cm hiatal hernia. - Z-line regular, 36 cm from the incisors. - Gastroesophageal flap valve classified as Hill Grade IV (no fold, wide open lumen, hiatal hernia present). - Small (< 5 mm) esophageal varices. - Normal stomach. - Normal examined duodenum. - No specimens collected. - No obvious cause for patient's severe acute anemia found on this endoscopy. Allergies Allergy/AdvReac Type Severity Reaction Status Date / Time hydromorphone [From Dilaudid] Allergy Hives Verified 03/20/23 07:39 Home Medications Medication Instructions Recorded Confirmed Type albuterol sulfate 90 mcg/actuation 2 puff inhalation BID PRN Wheezing 03/19/23 03/19/23 History aerosol inhaler ambrisentan 10 mg tablet 10 mg PO DAILY 03/19/23 03/19/23 History calcium citrate 200 mg (950 mg) 400 mg PO BID 03/19/23 03/19/23 History tablet ferrous sulfate 325 mg (65 mg 325 mg PO BID 03/19/23 03/19/23 History iron) tablet (Iron (ferrous sulfate)) fluticasone furoate 200 1 inh inhalation DAILY 03/19/23 03/19/23 History mcg-vilanterol 25 mcg/dose inhalation powder (Breo Ellipta) fluticasone propionate 50 2 spray intranasal BID 03/19/23 03/19/23 History mcg/actuation nasal spray,suspension gabapentin 300 mg capsule 600 mg HS 03/19/23 03/19/23 History lactulose 10 gram/15 mL (15 mL) 30 ml PO TID PRN Constipation 03/19/23 03/19/23 History oral solution levothyroxine 150 mcg tablet 150 mcg DAILY 03/19/23 03/19/23 History magnesium chloride 64 mg See Rx Instructions .Route .COMPLEX 03/19/23 03/19/23 History tablet,extended release mycophenolate mofetil 500 mg tablet 500 mg PO BID 03/19/23 03/19/23 History nadolol 40 mg tablet 40 mg QAM 03/19/23 03/19/23 History omeprazole 20 mg tablet,delayed 20 mg PO BID 03/19/23 03/19/23 History release potassium chloride 20 mEq 20 meq PO DAILY 03/19/23 03/19/23 History tablet,extended release spironolactone 100 mg tablet See Rx Instructions .Route .COMPLEX 03/19/23 03/19/23 History tadalafil (pulm. hypertension) 20 40 mg QAM 03/19/23 03/19/23 History mg tablet (pulmonary hypertension) tiotropium bromide 18 mcg capsule 1 cap inhalation 03/19/23 History with inhalation device (Spiriva with HandiHaler) torsemide 20 mg tablet See Rx Instructions .Route .COMPLEX 03/19/23 03/19/23 History tramadol 50 mg tablet 100 mg Q6H 03/19/23 03/19/23 History trazodone 50 mg tablet 50 mg HS 03/19/23 03/19/23 History Patient History Medical History (Updated 03/20/23 @ 07:39 by Cheryl Diego) Chronic hypoxic respiratory failure COPD (chronic obstructive pulmonary disease) AVM (arteriovenous malformation) Pulmonary HTN SLE (systemic lupus erythematosus related syndrome) Autoimmune hepatitis Esophageal varices Cirrhosis Acute GI hemorrhage Family History (System 03/20/23 @ 07:39 by Cheryl Diego) Other Family history non-contributory Social History (System 03/20/23 @ 07:39 by Cheryl Diego) Smoking Status: Former smoker Smoking End Date: about 6 years ago; Hx Alcohol Use: No Hx Substance Use: No Preferred Language: Mongolian Communication Ability: Effective Video News Editor Required: No Beliefs That Will Affect Care: None Current Living Situation: Spouse Other Information That Helps Us Care for You: No Feels Safe at Home: Yes Safety Concerns: Feels Safe At This Time Assistive Devices: Oxygen - at Night and Oxygen - Continuous Review of Systems Review of Systems: All systems reviewed & are unremarkable except as noted in HPI & below Physical Exam Constitutional: WD/WN, vitals as above Respiratory: normal respiratory effort; no respiratory distress wearing O2 Cardiovascular: Rate/Rhythm: regular rate Gastrointestinal (Abdomen): normal bowel sounds, soft, nontender, no hepatosplenomegaly Skin: no rashes, warm and dry Results & Data Vital Signs (Past 12 Hours) Vital Signs Temp Pulse Pulse Pulse Resp BP BP 03/20/23 08:14 36.9 C 66 16 91/53 L 03/20/23 08:10 72 03/20/23 03:20 36.9 C 63 16 91/43 L 03/20/23 03:08 36.9 C 66 18 03/19/23 23:00 03/19/23 23:00 36.9 C 57 L 16 96/60 L 03/19/23 22:51 03/19/23 22:30 75 03/19/23 22:00 81 18 03/19/23 21:30 37.1 C 75 18 97/61 L 03/19/23 21:00 37 C 79 17 89/63 L BP Pulse Ox O2 Del Method O2 Flow Rate 03/20/23 08:14 96 Nasal Cannula 6 03/20/23 08:10 03/20/23 03:20 90/44 L 90 Nasal Cannula 6 03/20/23 03:08 91 Nasal Cannula 4 03/19/23 23:00 Nasal Cannula 3 03/19/23 23:00 90 Nasal Cannula 3 03/19/23 22:51 Room Air 03/19/23 22:30 03/19/23 22:00 03/19/23 21:30 93 3 03/19/23 21:00 93 3 Laboratory Results 03/20/23 03/20/23 03/20/23 Range/Units 04:13 04:12 00:43 WBC 6.32 (4.8-10.8) K/ul RBC 2.79 L (4.20-5.40) M/uL Hgb 7.4 L 8.1 L (12.0-16.0) g/dl Hct 22.6 L 24.4 L (37.0-47.0) % MCV 81.0 (80.0-100.0) fL MCH 26.5 (25.0-34.0) pg MCHC 32.7 (32.0-36.0) g/dL RDW Std Deviation 46.5 H (36.4-46.3) fL RDW Coeff of Paras 15.9 H (11.5-14.5) % Plt Count 149 (130-400) K/uL MPV 11.9 (9.4-12.4) fL Immature Gran % (Auto) 0.2 % Neut % (Auto) 60.7 % Lymph % (Auto) 24.7 % Dickson % (Auto) 11.1 % Eos % (Auto) 2.2 % Baso % (Auto) 1.1 % Reticulocyte % (Auto) (0.5-2.0) % Neut # (Auto) 3.84 (1.40-6.50) K/uL Lymph # (Auto) 1.56 (1.20-3.40) K/uL Dickson # (Auto) 0.70 H (0.11-0.59) K/uL Eos # (Auto) 0.14 (0.00-0.50) K/uL Baso # (Auto) 0.07 (0.00-0.20) K/uL Reticulocyte # (0.02-0.10) 10^6/uL Immature Gran # (Auto) 0.01 (0.01-0.20) K/uL Hypersegmented Neuts Polychromasia 1+ Hypochromasia Present Ovalocytes PT (9.0-12.0) Seconds INR (0.9-1.1) APTT (21-31) Seconds PTT Ratio VBG pH 7.40 (7.36-7.41) VBG pCO2 46 (38-50) mmHg VBG pO2 50 mmHg VBG HCO3 29 mmol/L VBG O2 Saturation 79.8 % VBG Base Excess 3.0 mEq/L Sodium 142 (136-145) mmol/L Potassium 3.2 L (3.5-5.1) mmol/L Chloride 111 H (98-107) mmol/L Carbon Dioxide 28 (21-32) mmol/L Anion Gap 3 (3-11) BUN 50 H (6-23) mg/dl Creatinine 1.00 (0.6-1.2) mg/dl Est Cr Clr Drug Dosing 50.0 ml/min Est GFR ( Amer) 71.9 ml/min Est GFR (Non-Af Amer) 62.1 ml/min BUN/Creatinine Ratio 50.0 H (10-20) Glucose 131 H (70-99(Fasting)) mg/dl Calcium 7.5 L (8.6-10.3) mg/dl Phosphorus 2.8 (2.5-4.9) mg/dl Magnesium 2.1 (1.7-2.4) mg/dl Iron Unsaturated IBC (155-355) mcg/dl Transferrin (200-360) mg/dl Ferritin (8-388) ng/ml Total Bilirubin 1.1 H (0.2-1.0) mg/dl Direct Bilirubin (0-0.2) mg/dl AST 11 L (13-39) U/L ALT 5 L (7-52) U/L Alkaline Phosphatase 40 (34-104) U/L Troponin I High Sens (0-14) pg/ml Total Protein 4.6 L D (6.0-8.3) gm/dl Albumin 2.4 L (3.4-5.0) gm/dl Globulin 2.2 L (2.5-4.0) gm/dl Albumin/Globulin Ratio 1.1 (0.9-2) Lipase (11-82) U/L POC Stool Occult Blood (Negative) Adenovirus (PCR) (NotDetected) B. pertussis DNA (PCR) (NotDetected) B.parapertussis DNA PCR (NotDetected) C. pneumoniae DNA (PCR) (NotDetected) Coronavirus OC43 (PCR) (NotDetected) Coronavirus HKU1 (PCR) (NotDetected) Coronavirus 229E (PCR) (NotDetected) SARS-CoV-2 (PCR) (NotDetected) Coronavirus NL63 (PCR) (NotDetected) Human Metapneumovir PCR (NotDetected) Influenza Type A (PCR) (NotDetected) Influenza Type B (PCR) (NotDetected) M. pneumoniae (PCR) (NotDetected) Parainfluenza 1 (PCR) (NotDetected) Parainfluenza 2 (PCR) (NotDetected) Parainfluenza 3 (PCR) (NotDetected) Parainfluenza 4 (PCR) (NotDetected) RSV (PCR) (NotDetected) Entero/Rhino (PCR) (NotDetected) Blood Type Blood Type Recheck Antibody Screen Crossmatch 03/19/23 03/19/23 03/19/23 Range/Units 22:50 18:55 17:23 WBC (4.8-10.8) K/ul RBC (4.20-5.40) M/uL Hgb 8.0 L (12.0-16.0) g/dl Hct 24.0 L (37.0-47.0) % MCV (80.0-100.0) fL MCH (25.0-34.0) pg MCHC (32.0-36.0) g/dL RDW Std Deviation (36.4-46.3) fL RDW Coeff of Paras (11.5-14.5) % Plt Count (130-400) K/uL MPV (9.4-12.4) fL Immature Gran % (Auto) % Neut % (Auto) % Lymph % (Auto) % Dickson % (Auto) % Eos % (Auto) % Baso % (Auto) % Reticulocyte % (Auto) (0.5-2.0) % Neut # (Auto) (1.40-6.50) K/uL Lymph # (Auto) (1.20-3.40) K/uL Dickson # (Auto) (0.11-0.59) K/uL Eos # (Auto) (0.00-0.50) K/uL Baso # (Auto) (0.00-0.20) K/uL Reticulocyte # (0.02-0.10) 10^6/uL Immature Gran # (Auto) (0.01-0.20) K/uL Hypersegmented Neuts Polychromasia Hypochromasia Ovalocytes PT (9.0-12.0) Seconds INR (0.9-1.1) APTT (21-31) Seconds PTT Ratio VBG pH (7.36-7.41) VBG pCO2 (38-50) mmHg VBG pO2 mmHg VBG HCO3 mmol/L VBG O2 Saturation % VBG Base Excess mEq/L Sodium (136-145) mmol/L Potassium (3.5-5.1) mmol/L Chloride (98-107) mmol/L Carbon Dioxide (21-32) mmol/L Anion Gap (3-11) BUN (6-23) mg/dl Creatinine (0.6-1.2) mg/dl Est Cr Clr Drug Dosing ml/min Est GFR ( Amer) ml/min Est GFR (Non-Af Amer) ml/min BUN/Creatinine Ratio (10-20) Glucose (70-99(Fasting)) mg/dl Calcium (8.6-10.3) mg/dl Phosphorus (2.5-4.9) mg/dl Magnesium (1.7-2.4) mg/dl Iron Unsaturated IBC (155-355) mcg/dl Transferrin (200-360) mg/dl Ferritin (8-388) ng/ml Total Bilirubin (0.2-1.0) mg/dl Direct Bilirubin (0-0.2) mg/dl AST (13-39) U/L ALT (7-52) U/L Alkaline Phosphatase (34-104) U/L Troponin I High Sens (0-14) pg/ml Total Protein (6.0-8.3) gm/dl Albumin (3.4-5.0) gm/dl Globulin (2.5-4.0) gm/dl Albumin/Globulin Ratio (0.9-2) Lipase (11-82) U/L POC Stool Occult Blood Positive A (Negative) Adenovirus (PCR) (Ananthtected) B. pertussis DNA (PCR) (NotDetected) B.parapertussis DNA PCR (NotDetected) C. pneumoniae DNA (PCR) (NotDetected) Coronavirus OC43 (PCR) (NotDetected) Coronavirus HKU1 (PCR) (NotDetected) Coronavirus 229E (PCR) (NotDetected) SARS-CoV-2 (PCR) (NotDetected) Coronavirus NL63 (PCR) (NotDetected) Human Metapneumovir PCR (NotDetected) Influenza Type A (PCR) (NotDetected) Influenza Type B (PCR) (NotDetected) M. pneumoniae (PCR) (NotDetected) Parainfluenza 1 (PCR) (NotDetected) Parainfluenza 2 (PCR) (NotDetected) Parainfluenza 3 (PCR) (NotDetected) Parainfluenza 4 (PCR) (NotDetected) RSV (PCR) (NotDetected) Entero/Rhino (PCR) (NotDetected) Blood Type Blood Type Recheck AB Positive Antibody Screen Crossmatch 03/19/23 03/19/23 Range/Units 14:38 14:17 WBC 8.21 (4.8-10.8) K/ul RBC 2.64 L (4.20-5.40) M/uL Hgb 7.0 L (12.0-16.0) g/dl Hct 21.4 L (37.0-47.0) % MCV 81.1 (80.0-100.0) fL MCH 26.5 (25.0-34.0) pg MCHC 32.7 (32.0-36.0) g/dL RDW Std Deviation 48.2 H (36.4-46.3) fL RDW Coeff of Paras 16.5 H (11.5-14.5) % Plt Count 235 (130-400) K/uL MPV 11.7 (9.4-12.4) fL Immature Gran % (Auto) 0.4 % Neut % (Auto) 79.2 % Lymph % (Auto) 12.4 % Dickson % (Auto) 7.2 % Eos % (Auto) 0.1 % Baso % (Auto) 0.7 % Reticulocyte % (Auto) 1.4 (0.5-2.0) % Neut # (Auto) 6.50 (1.40-6.50) K/uL Lymph # (Auto) 1.02 L (1.20-3.40) K/uL Dickson # (Auto) 0.59 (0.11-0.59) K/uL Eos # (Auto) 0.01 (0.00-0.50) K/uL Baso # (Auto) 0.06 (0.00-0.20) K/uL Reticulocyte # 0.04 (0.02-0.10) 10^6/uL Immature Gran # (Auto) 0.03 (0.01-0.20) K/uL Hypersegmented Neuts 1+ Polychromasia Hypochromasia Present Ovalocytes 1+ PT 14.1 H (9.0-12.0) Seconds INR 1.3 H (0.9-1.1) APTT 24 (21-31) Seconds PTT Ratio 0.9 VBG pH (7.36-7.41) VBG pCO2 (38-50) mmHg VBG pO2 mmHg VBG HCO3 mmol/L VBG O2 Saturation % VBG Base Excess mEq/L Sodium 142 (136-145) mmol/L Potassium 3.7 (3.5-5.1) mmol/L Chloride 103 (98-107) mmol/L Carbon Dioxide 30 (21-32) mmol/L Anion Gap 9 (3-11) BUN 64 H (6-23) mg/dl Creatinine 1.06 (0.6-1.2) mg/dl Est Cr Clr Drug Dosing 46.4 ml/min Est GFR ( Amer) 67.0 ml/min Est GFR (Non-Af Amer) 57.8 ml/min BUN/Creatinine Ratio 60.4 H (10-20) Glucose 127 H (70-99(Fasting)) mg/dl Calcium 7.9 L (8.6-10.3) mg/dl Phosphorus (2.5-4.9) mg/dl Magnesium 1.2 L (1.7-2.4) mg/dl Iron TNP Unsaturated IBC 148 L (155-355) mcg/dl Transferrin 246 (200-360) mg/dl Ferritin 19.4 (8-388) ng/ml Total Bilirubin 0.9 (0.2-1.0) mg/dl Direct Bilirubin 0.2 (0-0.2) mg/dl AST 17 (13-39) U/L ALT 8 (7-52) U/L Alkaline Phosphatase 50 (34-104) U/L Troponin I High Sens 9.8 (0-14) pg/ml Total Protein 5.6 L (6.0-8.3) gm/dl Albumin 3.0 L (3.4-5.0) gm/dl Globulin 2.6 (2.5-4.0) gm/dl Albumin/Globulin Ratio 1.2 (0.9-2) Lipase 37 (11-82) U/L POC Stool Occult Blood (Negative) Adenovirus (PCR) Not Detected (NotDetected) B. pertussis DNA (PCR) Not Detected (NotDetected) B.parapertussis DNA PCR Not Detected (NotDetected) C. pneumoniae DNA (PCR) Not Detected (NotDetected) Coronavirus OC43 (PCR) Not Detected (NotDetected) Coronavirus HKU1 (PCR) Not Detected (NotDetected) Coronavirus 229E (PCR) Not Detected (NotDetected) SARS-CoV-2 (PCR) Not Detected (NotDetected) Coronavirus NL63 (PCR) Not Detected (NotDetected) Human Metapneumovir PCR Not Detected (NotDetected) Influenza Type A (PCR) Not Detected (NotDetected) Influenza Type B (PCR) Not Detected (NotDetected) M. pneumoniae (PCR) Not Detected (NotDetected) Parainfluenza 1 (PCR) Not Detected (NotDetected) Parainfluenza 2 (PCR) Not Detected (NotDetected) Parainfluenza 3 (PCR) Not Detected (NotDetected) Parainfluenza 4 (PCR) Not Detected (NotDetected) RSV (PCR) Not Detected (NotDetected) Entero/Rhino (PCR) Not Detected (NotDetected) Blood Type AB Positive Blood Type Recheck Antibody Screen NEGATIVE Crossmatch See Detail
[2023-03-20] MEDS: OCTREOTIDE ACETATE 500 MCG in 0.9 % SODIUM CHLORIDE 100 ML IV SCH ×2 (09:08→19:06)
[2023-03-20] MEDS: POTASSIUM CHLORIDE CRTAB 20 MEQ TABCR PO SCH (09:39)
[2023-03-20] MEDS: UMECLIDINIUM BROMIDE 62.5MCG/BLISTER 7 PUFFS/INHALER INH SCH (09:39)
[2023-03-20] MEDS: FLUTICASONE/VILANTEROL 200/25MCG 14 PUFFS/INHALER INH SCH (09:39)
[2023-03-20] MEDS: MYCOPHENOLATE MOFETIL 250 MG CAP PO SCH ×2 (09:39→20:46)
[2023-03-20] MEDS: FERROUS SULFATE 325 MG TAB PO SCH ×2 (09:39→20:46)
[2023-03-20] MEDS: CALCIUM CITRATE 950 MG TAB PO SCH ×2 (09:40→20:46)
--- NOTE | 2023-03-20 12:21 | Hospitalist Progress Note ---
Date of Service March 20, 2023 Assessment & Plan (1) Acute GI hemorrhage: (2) Cirrhosis: (3) Esophageal varices: (4) Autoimmune hepatitis: (5) SLE (systemic lupus erythematosus related syndrome): (6) Pulmonary HTN: (7) AVM (arteriovenous malformation): (8) DDD (degenerative disc disease), thoracolumbar: (9) Insomnia: (10) COPD (chronic obstructive pulmonary disease): Plan Pt is a 58yoF with PMhx significant for cirrhosis with esophageal varices and AVMs, autoimmune hepatitis, COPD on chronic oxygen, pulmonary HTN, DDD, Graves s/p thyroidectomy with postop hypothyroidism, and insomnia admitted with an acute GI bleed. Acute GI Bleed Cirrhosis with esophageal varices AVM Hypotension Patient presented to the ED with recurrent episodes of hematemesis and melena Hgb 7.[address] abdomen pelvis noting cirrhosis with abdominal varicosities and findings suggestive of portal venous hypertension. Also noted "distal esophageal and gastric varicosities with layering hyperdense material within the stomach, likely secondary to bleeding varicosities." Status post 2 units of packed RBC Continue on PPI and octreotide drip. SBP prophylaxis with IV Rocephin Discussed with GI PA; GI is planning for endoscopy tomorrow. Clear liquid diet for today. N.p.o. from midnight. Monitor for any bleeding Type I pulmonary HTN-on home tadalafil (or formulary alternative) and ambrisentan. Currently on hold COPD- continue home oxygen and inhalers. She is at 2 L of oxygen at rest, 3 L on exertion at baseline Hypothyroidism- continue home levothyroxine Autoimmune hepatitis, SLE- continue home cellcept DDD- continue home gabapentin, tramadol Insomnia- continue home trazodone DVT prophylaxis: SCDs in setting of acute GI bleed requiring transfusion CODE STATUS: Full code Diet: On clear liquid diet. N.p.o. from midnight Dispo: Patient is admitted to telemetry floor for acute upper GI bleed. GI is planning for endoscopy tomorrow AM. On IV octreotide and IV Protonix. Time spent evaluating patient, direct bedside care, chart review, placing orders, interpretation of diagnostic studies, discussion with consultants, patient, and family members, as well as other required patient management activities is 50 minutes Please note the above document was generated using voice recognition software. It may contain grammatical, syntax or spelling errors. Any formal questions or concerns about the content, text or information contained within the body of this dictation should be directly addressed to the provider for clarification Admission and Anticipated Discharge Date Admission Date: March 19, 2023 Subjective Patient seen and examined at bedside. She denies any episode of vomiting today or melena. She also denies abdominal pain. Last hemoglobin was 7.4 Review of Systems Review of Systems: All systems reviewed & are unremarkable except as noted in Subjective Physical Exam Physical Exam: Constitutional: WD/WN, vitals as above, NAD, sitting up in bed, pleasant, conversing easily Respiratory: normal respiratory effort, lungs clear to auscultation, no wheeze, rales, rhonchi. Normal insp/exp effort, no accessory muscle use Cardiovascular: RRR, no murmur, no edema Vessels: no JVD or carotid bruit Chest: normal inspection of chest Abdomen: Soft, nontender. Musculoskeletal: no cyanosis or clubbing, extremities motor strength 5/5 Skin: no rashes, warm and dry normal turgor Neurologic: PERRL, EOMI, accommodation nl, no face palsy, no dysarthria CN's II- XI intact bilaterally and moves all extremities Psychiatric: A+Ox3, euthymic affect Results & Data Results & Data Vital Signs (Past 12 Hours) Vital Signs Temp Pulse Pulse Pulse Resp BP BP 03/20/23 10:14 36.6 C 69 17 90/60 L 03/20/23 08:14 36.9 C 66 16 91/53 L 03/20/23 08:10 72 03/20/23 03:20 36.9 C 63 16 91/43 L 90/44 L 03/20/23 03:08 36.9 C 66 18 Pulse Ox O2 Del Method O2 Flow Rate 03/20/23 10:14 93 Nasal Cannula 6 03/20/23 08:14 96 Nasal Cannula 6 03/20/23 08:10 03/20/23 03:20 90 Nasal Cannula 6 03/20/23 03:08 91 Nasal Cannula 4 Laboratory Results Laboratory Results WBC 6.32 K/ul (4.8-10.8) 03/20/23 04:12 RBC 2.79 M/uL (4.20-5.40) L 03/20/23 04:12 Hgb 7.4 g/dl (12.0-16.0) L 03/20/23 04:12 Hct 22.6 % (37.0-47.0) L 03/20/23 04:12 MCV 81.0 fL (80.0-100.0) 03/20/23 04:12 MCH 26.5 pg (25.0-34.0) 03/20/23 04:12 MCHC 32.7 g/dL (32.0-36.0) 03/20/23 04:12 RDW Std Deviation 46.5 fL (36.4-46.3) H 03/20/23 04:12 RDW Coeff of Paras 15.9 % (11.5-14.5) H 03/20/23 04:12 Plt Count 149 K/uL (130-400) 03/20/23 04:12 MPV 11.9 fL (9.4-12.4) 03/20/23 04:12 Immature Gran % (Auto) 0.2 % 03/20/23 04:12 Neut % (Auto) 60.7 % 03/20/23 04:12 Lymph % (Auto) 24.7 % 03/20/23 04:12 [place] % (Auto) 11.1 % 03/20/23 04:12 Eos % (Auto) 2.2 % 03/20/23 04:12 Baso % (Auto) 1.1 % 03/20/23 04:12 Reticulocyte % (Auto) 1.4 % (0.5-2.0) 03/19/23 14:17 Neut # (Auto) 3.84 K/uL (1.40-6.50) 03/20/23 04:12 Lymph # (Auto) 1.56 K/uL (1.20-3.40) 03/20/23 04:12 [place] # (Auto) 0.70 K/uL (0.11-0.59) H 03/20/23 04:12 Eos # (Auto) 0.14 K/uL (0.00-0.50) 03/20/23 04:12 Baso # (Auto) 0.07 K/uL (0.00-0.20) 03/20/23 04:12 Reticulocyte # 0.04 10^6/uL (0.02-0.10) 03/19/23 14:17 Immature Gran # (Auto) 0.01 K/uL (0.01-0.20) 03/20/23 04:12 Hypersegmented Neuts 1+ 03/19/23 14:17 Polychromasia 1+ 03/20/23 04:12 Hypochromasia Present 03/20/23 04:12 Ovalocytes 1+ 03/19/23 14:17 PT 14.1 Seconds (9.0-12.0) H 03/19/23 14:17 INR 1.3 (0.9-1.1) H 03/19/23 14:17 APTT 24 Seconds (21-31) 03/19/23 14:17 PTT Ratio 0.9 03/19/23 14:17 VBG pH 7.40 (7.36-7.41) 03/20/23 04:13 VBG pCO2 46 mmHg (38-50) 03/20/23 04:13 VBG pO2 50 mmHg 03/20/23 04:13 VBG HCO3 29 mmol/L 03/20/23 04:13 VBG O2 Saturation 79.8 % 03/20/23 04:13 VBG Base Excess 3.0 mEq/L 03/20/23 04:13 Sodium 142 mmol/L (136-145) 03/20/23 04:12 Potassium 3.2 mmol/L (3.5-5.1) L 03/20/23 04:12 Chloride 111 mmol/L (98-107) H 03/20/23 04:12 Carbon Dioxide 28 mmol/L (21-32) 03/20/23 04:12 Anion Gap 3 (3-11) 03/20/23 04:12 BUN 50 mg/dl (6-23) H 03/20/23 04:12 Creatinine 1.00 mg/dl (0.6-1.2) 03/20/23 04:12 Est Cr Clr Drug Dosing 50.0 ml/min 03/20/23 04:12 Est GFR ( Amer) 71.9 ml/min 03/20/23 04:12 Est GFR (Non-Af Amer) 62.1 ml/min 03/20/23 04:12 BUN/Creatinine Ratio 50.0 (10-20) H 03/20/23 04:12 Glucose 131 mg/dl (70-99(Fasting)) H 03/20/23 04:12 Calcium 7.5 mg/dl (8.6-10.3) L 03/20/23 04:12 Phosphorus 2.8 mg/dl (2.5-4.9) 03/20/23 04:12 Magnesium 2.1 mg/dl (1.7-2.4) 03/20/23 04:12 Iron TNP 03/19/23 14:17 Unsaturated IBC 148 mcg/dl (155-355) L 03/19/23 14:17 Transferrin 246 mg/dl (200-360) 03/19/23 14:17 Ferritin 19.4 ng/ml (8-388) 03/19/23 14:17 Total Bilirubin 1.1 mg/dl (0.2-1.0) H 03/20/23 04:12 Direct Bilirubin 0.2 mg/dl (0-0.2) 03/19/23 14:17 AST 11 U/L (13-39) L 03/20/23 04:12 ALT 5 U/L (7-52) L 03/20/23 04:12 Alkaline Phosphatase 40 U/L (34-104) 03/20/23 04:12 Troponin I High Sens 9.8 pg/ml (0-14) 03/19/23 14:17 Total Protein 4.6 gm/dl (6.0-8.3) L D 03/20/23 04:12 Albumin 2.4 gm/dl (3.4-5.0) L 03/20/23 04:12 Globulin 2.2 gm/dl (2.5-4.0) L 03/20/23 04:12 Albumin/Globulin Ratio 1.1 (0.9-2) 03/20/23 04:12 Lipase 37 U/L (11-82) 03/19/23 14:17 POC Stool Occult Blood Positive (Negative) A 03/19/23 18:55 Adenovirus (PCR) Not Detected (NotDetected) 03/19/23 14:38 B. pertussis DNA (PCR) Not Detected (NotDetected) 03/19/23 14:38 B.parapertussis DNA PCR Not Detected (NotDetected) 03/19/23 14:38 C. pneumoniae DNA (PCR) Not Detected (NotDetected) 03/19/23 14:38 Coronavirus OC43 (PCR) Not Detected (NotDetected) 03/19/23 14:38 Coronavirus HKU1 (PCR) Not Detected (NotDetected) 03/19/23 14:38 Coronavirus 229E (PCR) Not Detected (NotDetected) 03/19/23 14:38 SARS-CoV-2 (PCR) Not Detected (NotDetected) 03/19/23 14:38 Coronavirus NL63 (PCR) Not Detected (NotDetected) 03/19/23 14:38 Human Metapneumovir PCR Not Detected (NotDetected) 03/19/23 14:38 Influenza Type A (PCR) Not Detected (NotDetected) 03/19/23 14:38 Influenza Type B (PCR) Not Detected (NotDetected) 03/19/23 14:38 M. pneumoniae (PCR) Not Detected (NotDetected) 03/19/23 14:38 Parainfluenza 1 (PCR) Not Detected (NotDetected) 03/19/23 14:38 Parainfluenza 2 (PCR) Not Detected (NotDetected) 03/19/23 14:38 Parainfluenza 3 (PCR) Not Detected (NotDetected) 03/19/23 14:38 Parainfluenza 4 (PCR) Not Detected (NotDetected) 03/19/23 14:38 RSV (PCR) Not Detected (NotDetected) 03/19/23 14:38 Entero/Rhino (PCR) Not Detected (NotDetected) 03/19/23 14:38 Blood Type AB Positive 03/19/23 14:17 Blood Type Recheck AB Positive 03/19/23 17:23 Antibody Screen NEGATIVE 03/19/23 14:17 Crossmatch See Detail 03/19/23 14:17 Impressions Abdomen/Pelvis CT 03/19/23 15:[address] WITH IV CONTRAST CT DOSE: 349.67 mGy.cm HISTORY: Acute generalized abdominal pain hematemesis/melena TECHNIQUE: Multiaxial CT images of the abdomen and pelvis were performed following the IV administration of 94 cc of Optiray, A dose lowering technique was utilized adhering to the principles of ALARA. COMPARISON STUDY: None. FINDINGS: Mild subsegmental bibasilar atelectasis versus scarring. No free air. Unremarkable spleen, pancreas and right adrenal gland. Mild benign nodular thickening of the left adrenal gland. Cholecystectomy. Patency of the hepatic and portal veins. Sclerotic liver with abdominal varicosities. Recanalized umbil ical vein. No discrete hepatic mass identified. Unremarkable left kidney. Right-sided rotated pelvic kidney. There is urothelial thickening of the right renal collecting system. Unremarkable urinary bladder and uterus. Atherosclerosis of the aorta without aneurysm. Borderline enlarged retroperitoneal lymph nodes measure up to 10 mm with subcentimeter lymph nodes of the mesenteric root. Distal esophageal an gastric varicosities. Layering hyperdense material within the stomach. No bowel obstruction. Internal hemorrhoids are suggested. Scattered large and small bowel air-fluid levels. Mild wall thickening noted within portions of the large bowel. Normal appendix. Small bowel loops measure up to 2.6 cm. No acute fracture. IMPRESSION: 1. Cirrhosis with abdominal varicosities and recanalized umbilical vein compatible with portal venous hypertension. No ascites. 2. Distal esophageal and gastric varicosities noted with layering hyperdense material within the stomach, likely secondary to bleeding varicosities. 3. No bowel obstruction or pneumoperitoneum. 4. Scattered large and small bowel air-fluid levels noted which may be physiologic or represent an enteritis or ileus. 5. Areas of wall thickening within the large bowel, likely secondary to portal colopathy. 6. Mild right-sided urothelial thickening. Correlate with urinalysis in order to exclude infection. ACT 112: Negative or not required by law. The above report was generated using voice recognition software. It may contain grammatical, syntax or spelling errors. Electronically signed by: Yifan Jackson M.D. 03/19/2023 4:30 PM Chest X-Ray 03/20/23 03:52 XR chest 1V portable HISTORY: 58 years-old Female hypoxia acute hypoxia COMPARISON: 03/19/2023 TECHNIQUE: AP view of the chest FINDINGS: Cardiac silhouette is enlarged. Subsegmental bibasilar densities. Suggestion of pulmonary emphysema. No pneumothorax, large pleural effusion or overt pulmonary edema. Degenerative changes of the shoulders and spine. IMPRESSION: 1. Cardiomegaly without acute process of the chest. 2. Mild bibasilar opacities suggest atelectasis. ACT 112: Negative or not required by law. The above report was generated using voice recognition software. It may contain grammatical, syntax or spelling errors. Electronically signed by: Yifan Jackson M.D. 03/20/2023 7:26 AM (2) Cirrhosis Ascites presence: without ascites Hepatic cirrhosis type: unspecified hepatic cirrhosis Qualified Code(s): K74.60 - Unspecified cirrhosis of liver (3) Esophageal varices Esophageal varices bleeding: with bleeding Esophageal varices type: unspecified type Qualified Code(s): I85.01 - Esophageal varices with bleeding
--- NOTE | 2023-03-20 15:11 | Electrocardiogram Report ---
Test Reason : Blood Pressure : / mmHG Vent. Rate : 085 BPM Atrial Rate : 085 BPM P-R Int : 094 ms QRS Dur : 074 ms QT Int : 586 ms P-R-T Axes : 022 059 066 degrees QTc Int : 697 ms Sinus rhythm with short PA Nonspecific T wave abnormality Abnormal ECG No previous ECGs available Confirmed by Garret Hercules ([id number]) on 03/20/2023 3:10:48 PM Referred By: Confirmed By:Garret Hercules
[2023-03-20 16:46] LABS: Basophils # (auto) 0.07 K/uL (0.00-0.20); Eosinophils # (auto) 0.16 K/uL (0.00-0.50); Eosinophils % (auto) 2.2 %; Hematocrit (blood only) 24.2 % (37.0-47.0); Hemoglobin 7.9 g/dl (12.0-16.0); Immature Granulocytes # (auto) 0.04 K/uL (0.01-0.20); Immature Granulocytes % (auto) 0.6 %; Lymphocytes # (auto) 0.94 K/uL (1.20-3.40); Lymphocytes % (auto) 13.1 %; Mean Corpuscular Hgb Conc 32.6 g/dL (32.0-36.0); Mean Corpuscular Volume 82.6 fL (80.0-100.0); Mean Platelet Volume 11.1 fL (9.4-12.4); Monocytes # (auto) 0.53 K/uL (0.11-0.59); Monocytes % (auto) 7.4 %; Neutrophils # (auto) 5.41 K/uL (1.40-6.50); Neutrophils % (auto) 75.7 %; Platelet Count 164 K/uL (130-400); RDW Coefficient of Variation 16.3 % (11.5-14.5); RDW Standard Deviation 48.5 fL (36.4-46.3); Red Blood Count 2.93 M/uL (4.20-5.40); White Blood Count 7.15 K/ul (4.8-10.8)
[2023-03-20 17:17] LABS: Polychromasia 1+
[2023-03-20] MEDS: traZODone HCL 50 MG TAB PO SCH (20:46)
[2023-03-20] MEDS: GABAPENTIN 600 MG TAB PO SCH (20:46)
[2023-03-20] MEDS: cefTRIAXone SODIUM 1,000 MG in DEXTROSE 5 % MINI-B 50 ML IV SCH (22:03)
[2023-03-21] MEDS: PANTOprazole 40 MG in DEXTROSE 5% MINI-B 100 ML IV SCH ×2 (03:17→07:48)
[2023-03-21] MEDS: OCTREOTIDE ACETATE 500 MCG in 0.9 % SODIUM CHLORIDE 100 ML IV SCH (05:05)
[2023-03-21] MEDS: LEVOTHYROXINE SODIUM 150 MCG TABLET PO SCH (05:54)
[2023-03-21 06:34] LABS: Basophils # (auto) 0.05 K/uL (0.00-0.20); Basophils % (auto) 0.9 %; Eosinophils # (auto) 0.23 K/uL (0.00-0.50); Eosinophils % (auto) 3.9 %; Hematocrit (blood only) 25.5 % (37.0-47.0); Hemoglobin 7.9 g/dl (12.0-16.0); Immature Granulocytes # (auto) 0.02 K/uL (0.01-0.20); Immature Granulocytes % (auto) 0.3 %; Lymphocytes # (auto) 1.01 K/uL (1.20-3.40); Lymphocytes % (auto) 17.2 %; Mean Corpuscular Hemoglobin 26.5 pg (25.0-34.0); Mean Corpuscular Volume 85.6 fL (80.0-100.0); Mean Platelet Volume 10.6 fL (9.4-12.4); Monocytes # (auto) 0.56 K/uL (0.11-0.59); Monocytes % (auto) 9.5 %; Neutrophils % (auto) 68.2 %; Platelet Count 158 K/uL (130-400); RDW Coefficient of Variation 16.3 % (11.5-14.5); RDW Standard Deviation 49.7 fL (36.4-46.3); Red Blood Count 2.98 M/uL (4.20-5.40); White Blood Count 5.87 K/ul (4.8-10.8)
[2023-03-21 06:58] LABS: Polychromasia 1+
[2023-03-21 07:16] LABS: BUN Creatinine Ratio 24.4 (10-20); Calcium 7.9 mg/dl (8.6-10.3); Creatinine Clr Calc Pharmacy 64.1 ml/min; Est GFR (African American) 97.1 ml/min; Est GFR (Non-African American) 83.8 ml/min; Potassium 3.5 mmol/L (3.5-5.1)
--- NOTE | 2023-03-21 08:07 | Anesthesiology Consultation ---
Date of Service March 21, 2023 Assessment & Plan (1) Encounter for pre-operative examination: Chart Review Chart Review: Acceptable Risk for Surgery and Patient NOT seen in Pre Admission Testing Consults Requested none History Surgery Operation Date: 03/21/23 16:30 Proposed Procedures p Esophagogastroduodenoscopy Dr Saleh - Marcos Saleh MD Height/Weight Height: 5 ft 6 in Weight: 51.658 kg Allergies Allergy/AdvReac Type Severity Reaction Status Date / Time hydromorphone [From Dilaudid] Allergy Hives Verified 03/20/23 07:39 Medications Home Medications Medication Instructions Recorded Confirmed Last Taken albuterol sulfate 90 mcg/actuation 2 puff inhalation BID PRN Wheezing 03/19/23 03/19/23 Unknown aerosol inhaler ambrisentan 10 mg tablet 10 mg PO DAILY 03/19/23 03/19/23 Unknown calcium citrate 200 mg (950 mg) 400 mg PO BID 03/19/23 03/19/23 Unknown tablet ferrous sulfate 325 mg (65 mg 325 mg PO BID 03/19/23 03/19/23 Unknown iron) tablet (Iron (ferrous sulfate)) fluticasone furoate 200 1 inh inhalation DAILY 03/19/23 03/19/23 Unknown mcg-vilanterol 25 mcg/dose inhalation powder (Breo Ellipta) fluticasone propionate 50 2 spray intranasal BID 03/19/23 03/19/23 Unknown mcg/actuation nasal spray,suspension gabapentin 300 mg capsule 600 mg HS 03/19/23 03/19/23 Unknown lactulose 10 gram/15 mL (15 mL) 30 ml PO TID PRN Constipation 03/19/23 03/19/23 Unknown oral solution levothyroxine 150 mcg tablet 150 mcg DAILY 03/19/23 03/19/23 Unknown magnesium chloride 64 mg See Rx Instructions .Route .COMPLEX 03/19/23 03/19/23 Unknown tablet,extended release mycophenolate mofetil 500 mg tablet 500 mg PO BID 03/19/23 03/19/23 Unknown nadolol 40 mg tablet 40 mg QAM 03/19/23 03/19/23 Unknown omeprazole 20 mg tablet,delayed 20 mg PO BID 03/19/23 03/19/23 Unknown release potassium chloride 20 mEq 20 meq PO DAILY 03/19/23 03/19/23 Unknown tablet,extended release spironolactone 100 mg tablet See Rx Instructions .Route .COMPLEX 03/19/23 03/19/23 Unknown tadalafil (pulm. hypertension) 20 40 mg QAM 03/19/23 03/19/23 Unknown mg tablet (pulmonary hypertension) tiotropium bromide 18 mcg capsule 1 cap inhalation 03/19/23 Unknown with inhalation device (Spiriva with HandiHaler) torsemide 20 mg tablet See Rx Instructions .Route .COMPLEX 03/19/23 03/19/23 Unknown tramadol 50 mg tablet 100 mg Q6H 03/19/23 03/19/23 Unknown trazodone 50 mg tablet 50 mg HS 03/19/23 03/19/23 Unknown Active Medications Generic Name Dose Route Start Last Admin Trade Name Freq PRN Reason Stop Dose Admin Calcium Citrate 1,900 mg 03/19/23 22:32 03/20/23 20:46 Calcium Citrate 950 Mg Tab PO 04/18/23 22:31 1,900 mg BID PAVEL Administration Ferrous Sulfate 325 mg 03/19/23 22:32 03/20/23 20:46 Ferrous Sulfate 325 Mg Tab PO 04/18/23 22:31 325 mg BID PAVEL Administration Fluticasone/Vilanterol 1 puffs 03/20/23 09:00 03/20/23 09:39 Fluticasone/Vilanterol 200/25mcg 14 Puffs/Inhaler INH 04/19/23 08:59 1 puffs DAILY PAVEL Administration Gabapentin 600 mg 03/19/23 22:32 03/20/23 20:46 Gabapentin 600 Mg Tab PO 04/18/23 22:31 600 mg HS PAVEL Administration Octreotide Acetate 500 mcg/ 100.5 mls @ 10.05 mls/hr 03/19/23 15:15 03/21/23 05:05 Sodium Chloride IV 04/18/23 15:14 50 mcg/hr .Q10H PAVEL 10.1 mls/hr Administration 50 MCG/HR Pantoprazole Sodium 40 mg/ 100 mls @ 20 mls/hr 03/19/23 15:30 03/21/23 07:48 Dextrose IV 04/18/23 15:29 8 mg/hr Q5H PAVEL 20 mls/hr Administration 8 MG/HR Ceftriaxone Sodium 1,000 mg/ 50 mls @ 100 mls/hr 03/19/23 22:32 03/20/23 22:33 Dextrose IV 03/29/23 22:31 Infused Q24H PAVEL Infusion Protocol Levothyroxine Sodium 150 mcg 03/20/23 06:30 03/21/23 05:54 Levothyroxine Sodium 150 Mcg Tablet PO 04/19/23 06:29 150 mcg DAILYBB PAVEL Administration Miscellaneous 1 each 03/20/23 00:00 03/20/23 23:40 Ambrisentan 10 Mg - Order Awaiting Action N/A 04/19/23 00:00 Not Given QS PAVEL Miscellaneous 1 each 03/20/23 00:00 03/20/23 23:40 Tadalafil 40mg - Order Awaiting Action N/A 04/19/23 00:00 Not Given QS PAVEL Mycophenolate Mofetil 500 mg 03/19/23 22:32 03/20/23 20:46 Mycophenolate Mofetil 250 Mg Cap PO 04/18/23 22:31 500 mg BID PAVEL Administration Potassium Chloride 20 meq 03/20/23 09:00 03/20/23 09:39 Potassium Chloride Crtab 20 Meq Tabcr PO 04/19/23 08:59 20 meq DAILY PAVEL Administration Trazodone HCl 50 mg 03/19/23 22:32 03/20/23 20:46 Trazodone Hcl 50 Mg Tab PO 04/18/23 22:31 50 mg HS PAVEL Administration Umeclidinium [place] 1 puffs 03/20/23 09:00 03/20/23 09:39 Umeclidinium [place] 62.5mcg/Blister 7 Puffs/Inhaler INH 04/19/23 08:59 1 puffs QAM PAVEL Administration Past Medical History Medical History Chronic hypoxic respiratory failure COPD (chronic obstructive pulmonary disease) AVM (arteriovenous malformation) Pulmonary HTN SLE (systemic lupus erythematosus related syndrome) Autoimmune hepatitis Esophageal varices Cirrhosis Acute GI hemorrhage Past Family History Family History Other Family history non-contributory Social History Smoking Status: Former smoker Smoking End Date: about 6 years ago Hx Alcohol Use: No Hx Substance Use: No Physical Exam Vital Signs Last Vital Signs Temp 97.9 F 03/21/23 02:44 Pulse 64 03/21/23 02:44 Resp 18 03/21/23 02:44 BP 92/52 L 03/21/23 02:44 Pulse Ox 95 03/21/23 02:44 O2 Del Method Nasal Cannula 03/21/23 02:44 O2 Flow Rate 3 03/20/23 21:45 Testing Laboratory Results 03/21/23 06:12 03/21/23 06:12 PT 14.1 Seconds (9.0-12.0) H 03/19/23 14:17 INR 1.3 (0.9-1.1) H 03/19/23 14:17 APTT 24 Seconds (21-31) 03/19/23 14:17 Blood Type AB Positive 03/19/23 14:17 Antibody Screen NEGATIVE 03/19/23 14:17
[2023-03-21] MEDS ORDERED: LIDOCAINE 2% 2 ML VIAL/AMP(20MG/ML) INFIL ONE (08:13)
[2023-03-21] MEDS ORDERED: PROPOFOL IV EMULSION 10 MG/ML 20 ML VIAL IV ONE ×2 (08:13→08:50)
--- NOTE | 2023-03-21 08:32 | History & Physical Report ---
Date of Service March 21, 2023 Assessment & Plan (1) GI bleed: Plan: stable for EGD Admission and Anticipated Discharge Date Admission Date: March 19, 2023 History of Present Illness Chief Complaint: GI bleed Primary Care Provider: Reggie Eddy MD Pt with GI bleeding for EGD Allergies Allergy/AdvReac Type Severity Reaction Status Date / Time hydromorphone [From Dilaudid] Allergy Hives Verified 03/20/23 07:39 Home Medications Medication Instructions Recorded Confirmed Type albuterol sulfate 90 mcg/actuation 2 puff inhalation BID PRN Wheezing 03/19/23 03/19/23 History aerosol inhaler ambrisentan 10 mg tablet 10 mg PO DAILY 03/19/23 03/19/23 History calcium citrate 200 mg (950 mg) 400 mg PO BID 03/19/23 03/19/23 History tablet ferrous sulfate 325 mg (65 mg 325 mg PO BID 03/19/23 03/19/23 History iron) tablet (Iron (ferrous sulfate)) fluticasone furoate 200 1 inh inhalation DAILY 03/19/23 03/19/23 History mcg-vilanterol 25 mcg/dose inhalation powder (Breo Ellipta) fluticasone propionate 50 2 spray intranasal BID 03/19/23 03/19/23 History mcg/actuation nasal spray,suspension gabapentin 300 mg capsule 600 mg HS 03/19/23 03/19/23 History lactulose 10 gram/15 mL (15 mL) 30 ml PO TID PRN Constipation 03/19/23 03/19/23 History oral solution levothyroxine 150 mcg tablet 150 mcg DAILY 03/19/23 03/19/23 History magnesium chloride 64 mg See Rx Instructions .Route .COMPLEX 03/19/23 03/19/23 History tablet,extended release mycophenolate mofetil 500 mg tablet 500 mg PO BID 03/19/23 03/19/23 History nadolol 40 mg tablet 40 mg QAM 03/19/23 03/19/23 History omeprazole 20 mg tablet,delayed 20 mg PO BID 03/19/23 03/19/23 History release potassium chloride 20 mEq 20 meq PO DAILY 03/19/23 03/19/23 History tablet,extended release spironolactone 100 mg tablet See Rx Instructions .Route .COMPLEX 03/19/23 03/19/23 History tadalafil (pulm. hypertension) 20 40 mg QAM 03/19/23 03/19/23 History mg tablet (pulmonary hypertension) tiotropium bromide 18 mcg capsule 1 cap inhalation 03/19/23 History with inhalation device (Spiriva with HandiHaler) torsemide 20 mg tablet See Rx Instructions .Route .COMPLEX 03/19/23 03/19/23 History tramadol 50 mg tablet 100 mg Q6H 03/19/23 03/19/23 History trazodone 50 mg tablet 50 mg HS 03/19/23 03/19/23 History Past Med/Surg History Medical History Chronic hypoxic respiratory failure COPD (chronic obstructive pulmonary disease) AVM (arteriovenous malformation) Pulmonary HTN SLE (systemic lupus erythematosus related syndrome) Autoimmune hepatitis Esophageal varices Cirrhosis Acute GI hemorrhage Family History Other Family history non-contributory Social History (System 03/20/23 @ 07:39 by Cheryl Diego) Smoking Status: Former smoker Smoking End Date: about 6 years ago; Hx Alcohol Use: No Hx Substance Use: No Preferred Language: Czech Communication Ability: Effective Land Economist Required: No Beliefs That Will Affect Care: None Current Living Situation: Spouse Other Information That Helps Us Care for You: No Feels Safe at Home: Yes Safety Concerns: Feels Safe At This Time Assistive Devices: Oxygen - at Night and Oxygen - Continuous Physical Exam Constitutional: WD/WN, vitals as above Respiratory: normal respiratory effort, lungs clear to auscultation Cardiovascular: RRR, no murmur, no edema Gastrointestinal (Abdomen): normal bowel sounds, soft, nontender, no hepatosplenomegaly Results & Data Vital Signs (Past 12 Hours) Vital Signs Temp Pulse Pulse Pulse Resp BP BP 03/21/23 08:09 37.1 C 93 H 76 18 96/80 L 03/21/23 07:21 36.5 C 62 20 93/41 L 03/21/23 02:44 36.6 C 64 18 92/52 L 03/20/23 23:13 36.6 C 74 18 92/50 L 03/20/23 22:05 77 03/20/23 21:45 Pulse Ox O2 Del Method O2 Flow Rate 03/21/23 08:09 93 Room Air 03/21/23 07:21 92 Nasal Cannula 3 03/21/23 02:44 95 Nasal Cannula 03/20/23 23:13 95 Nasal Cannula 03/20/23 22:05 03/20/23 21:45 Nasal Cannula 3
--- NOTE | 2023-03-21 09:21 | GI REPORT ---
Patient Name: Jazmín Blevins Procedure Date: 03/21/2023 8:32 AM Date of : 1965 Admit Type: Inpatient Age: 58 Gender: Female Attending MD: Marcos Saleh MD, Procedure: Upper GI endoscopy Providers: Marcos Saleh MD Referring MD: Navi Bronson Md Indications: Hematemesis Medicines: See the Anesthesia note for documentation of the administered medications Complications: No immediate complications. Estimated Blood Loss: Estimated blood loss: none. Procedure: Pre-Anesthesia Assessment: - Prior to the procedure, a History and Physical was performed, and patient medications, allergies and sensitivities were reviewed. The patient's tolerance of previous anesthesia was reviewed. - The risks and benefits of the procedure and the sedation options and risks were discussed with the patient. All questions were answered and informed consent was obtained. - Patient identification and proposed procedure were verified prior to the procedure by the physician and the nurse. The procedure was verified in the pre-procedure area. - Pre-procedure physical examination revealed no contraindications to sedation. - After reviewing the risks and benefits, the patient was deemed in satisfactory condition to undergo the procedure. After obtaining informed consent, the endoscope was passed under direct vision. Throughout the procedure, the patient's blood pressure, pulse, and oxygen saturations were monitored continuously. The Endoscope was introduced through the mouth, and advanced to the third part of duodenum. The upper GI endoscopy was accomplished without difficulty. The patient tolerated the procedure well. Findings: A post variceal banding scar was found in the distal esophagus. A small hiatal hernia was present. The examined duodenum was normal. The cardia and gastric fundus were normal on retroflexion. Impression: - Scar in the distal esophagus from prior variceal banding. - No new varices seen in lower esophagus. - Small hiatal hernia. - No blood in stomach. - Normal examined duodenum. - No obvious gastric varices seen. - No specimens collected. Recommendation: - Return patient to [facility] for ongoing care. Marcos Saleh M.D. Marcos Saleh MD 03/21/2023 9:21:27 AM This report has been signed electronically. Note Initiated On: 03/21/2023 8:32 AM Number of Addenda: 0 I attest to the content of the Intraoperative Record and orders documented therein, exceptions below {[id number]}
[2023-03-21] MEDS: MYCOPHENOLATE MOFETIL 250 MG CAP PO SCH ×2 (10:11→20:44)
[2023-03-21] MEDS: CALCIUM CITRATE 950 MG TAB PO SCH ×2 (10:11→20:43)
[2023-03-21] MEDS: FERROUS SULFATE 325 MG TAB PO SCH ×2 (10:11→20:44)
[2023-03-21] MEDS: POTASSIUM CHLORIDE CRTAB 20 MEQ TABCR PO SCH (10:12)
[2023-03-21] MEDS: UMECLIDINIUM BROMIDE 62.5MCG/BLISTER 7 PUFFS/INHALER INH SCH (10:12)
[2023-03-21] MEDS: FLUTICASONE/VILANTEROL 200/25MCG 14 PUFFS/INHALER INH SCH (10:12)
--- NOTE | 2023-03-21 10:51 | Anesthesiology Progress Note ---
Date of Service March 21, 2023 Anesthesia Post Procedure Vital Signs Vital Signs: Temp Pulse Pulse Pulse Resp BP BP 03/21/23 09:40 97.3 F L 75 20 108/60 03/21/23 09:23 80 17 99/67 L 03/21/23 09:08 77 16 109/69 03/21/23 08:57 79 03/21/23 08:53 72 15 83/52 L 03/21/23 08:09 98.8 F 93 H 76 18 96/80 L 03/21/23 07:21 97.7 F 62 20 93/41 L 03/21/23 02:44 97.9 F 64 18 92/52 L 03/20/23 23:13 97.9 F 74 18 92/50 L 03/20/23 22:05 77 03/20/23 21:45 03/20/23 19:15 97.9 F 75 18 94/53 L 03/20/23 17:37 97.5 F L 79 16 03/20/23 17:22 82 03/20/23 15:48 98.2 F 67 19 94/59 L Pulse Ox O2 Del Method O2 Flow Rate 03/21/23 09:40 92 Nasal Cannula 3 03/21/23 09:23 93 Nasal Cannula 2 03/21/23 09:08 95 Nasal Cannula 2 03/21/23 08:57 03/21/23 08:53 98 Oxymask 5 03/21/23 08:09 93 Room Air 03/21/23 07:21 92 Nasal Cannula 3 03/21/23 02:44 95 Nasal Cannula 03/20/23 23:13 95 Nasal Cannula 03/20/23 22:05 03/20/23 21:45 Nasal Cannula 3 03/20/23 19:15 93 Nasal Cannula 03/20/23 17:37 93 Nasal Cannula 6 03/20/23 17:22 03/20/23 15:48 97 Nasal Cannula 6 Pain Intensity Generalized: Pain Intensity: 8 Transfer of Care Handoff Completed per policy Notes Mental Status: alert / awake / arousable and participated in evaluation Patient Amnestic to Procedure: Yes Nausea / Vomiting: adequately controlled Pain: adequately controlled Airway Patency, RR, SpO2: stable & adequate BP & HR: stable & adequate Hydration State: stable & adequate Anesthetic Complications: no major complications apparent and Pt Satisfied with anesthetic care
--- NOTE | 2023-03-21 12:22 | Hospitalist Progress Note ---
Date of Service March 21, 2023 Assessment & Plan (1) Acute GI hemorrhage: (2) Cirrhosis: (3) Esophageal varices: (4) Autoimmune hepatitis: (5) SLE (systemic lupus erythematosus related syndrome): (6) Pulmonary HTN: (7) AVM (arteriovenous malformation): (8) DDD (degenerative disc disease), thoracolumbar: (9) Insomnia: (10) COPD (chronic obstructive pulmonary disease): Plan Pt is a 58yoF with PMhx significant for cirrhosis with esophageal varices and AVMs, autoimmune hepatitis, COPD on chronic oxygen, pulmonary HTN, DDD, Graves s/p thyroidectomy with postop hypothyroidism, and insomnia admitted with an acute GI bleed. Acute upper GI Bleed Cirrhosis with esophageal varices AVM Hypotension Patient presented to the ED with recurrent episodes of hematemesis and melena Hgb 7.0 on admission Status post [address] of packed RBC CT abdomen pelvis noting cirrhosis with abdominal varicosities and findings suggestive of portal venous hypertension. Also noted "distal esophageal and gastric varicosities with layering hyperdense material within the stomach, likely secondary to bleeding varicosities." Hemoglobin stable around 7.9 today. Status post endoscopy on March 21, 2023scar in distal esophagus from prior variceal banding. No new varices. No blood in the stomach. Will stop octreotide drip. Continue on IV PPI. Monitor overnight for recurrence of bleeding Continue SBP prophylaxis with IV Rocephin while inpatient. Advance diet as tolerated. Type I pulmonary HTN-on home tadalafil (or formulary alternative) and ambrisentan. Currently on hold given the hypotension. COPD- continue home oxygen and inhalers. She is at 2 L of oxygen at rest, 3 L on exertion at baseline Hypothyroidism- continue home levothyroxine Autoimmune hepatitis, SLE- continue home cellcept DDD- continue home gabapentin, tramadol Insomnia- continue home trazodone DVT prophylaxis: SCDs in setting of acute GI bleed requiring transfusion CODE STATUS: Full code Diet: Full liquid diet, advance as tolerated. Dispo: Patient is admitted to telemetry floor for acute upper GI bleed. underwent endoscopy today. Monitor for recurrence of bleeding overnight. Possible DC tomorrow. Time spent evaluating patient, direct bedside care, chart review, placing orders, interpretation of diagnostic studies, discussion with consultants, patient, and family members, as well as other required patient management activities is 50 minutes Please note the above document was generated using voice recognition software. It may contain grammatical, syntax or spelling errors. Any formal questions or concerns about the content, text or information contained within the body of this dictation should be directly addressed to the provider for clarification Admission and Anticipated Discharge Date Admission Date: March 19, 2023 Subjective Patient seen and examined at bedside. She underwent endoscopy today. No episode of vomiting or hematochezia. Review of Systems Review of Systems: All systems reviewed & are unremarkable except as noted in Subjective Physical Exam Physical Exam: Constitutional: WD/WN, vitals as above, NAD, sitting up in bed, pleasant, conversing easily Respiratory: Bilateral vesicular breath sounds. Cardiovascular: RRR, no murmur, no edema Vessels: no JVD or carotid bruit Chest: normal inspection of chest Abdomen: Soft, nontender. Musculoskeletal: no cyanosis or clubbing, extremities motor strength 5/5 Skin: no rashes, warm and dry normal turgor Neurologic: PERRL, EOMI, accommodation nl, no face palsy, no dysarthria CN's II- XI intact bilaterally and moves all extremities Psychiatric: A+Ox3, euthymic affect Results & Data Results & Data Vital Signs (Past 12 Hours) Vital Signs Temp Pulse Pulse Pulse Resp BP BP 03/21/23 10:49 36.3 C L 72 19 99/63 L 03/21/23 09:40 36.3 C L 75 20 108/60 03/21/23 09:23 80 17 99/67 L 03/21/23 09:08 77 16 109/69 03/21/23 08:57 79 03/21/23 08:53 72 15 83/52 L 03/21/23 08:09 37.1 C 93 H 76 18 96/80 L 03/21/23 07:21 36.5 C 62 20 93/41 L 03/21/23 02:44 36.6 C 64 18 92/52 L Pulse Ox O2 Del Method O2 Flow Rate 03/21/23 10:49 94 Nasal Cannula 3 03/21/23 09:40 92 Nasal Cannula 3 03/21/23 09:23 93 Nasal Cannula 2 03/21/23 09:08 95 Nasal Cannula 2 03/21/23 08:57 03/21/23 08:53 98 Oxymask 5 03/21/23 08:09 93 Room Air 03/21/23 07:21 92 Nasal Cannula 3 03/21/23 02:44 95 Nasal Cannula Laboratory Results Laboratory Results WBC 5.87 K/ul (4.8-10.8) 03/21/23 06:12 RBC 2.98 M/uL (4.20-5.40) L 03/21/23 06:12 Hgb 7.9 g/dl (12.0-16.0) L 03/21/23 06:12 Hct 25.5 % (37.0-47.0) L 03/21/23 06:12 MCV 85.6 fL (80.0-100.0) 03/21/23 06:12 MCH 26.5 pg (25.0-34.0) 03/21/23 06:12 MCHC 31.0 g/dL (32.0-36.0) L 03/21/23 06:12 RDW Std Deviation 49.7 fL (36.4-46.3) H 03/21/23 06:12 RDW Coeff of Paras 16.3 % (11.5-14.5) H 03/21/23 06:12 Plt Count 158 K/uL (130-400) 03/21/23 06:12 MPV 10.6 fL (9.4-12.4) 03/21/23 06:12 Immature Gran % (Auto) 0.3 % 03/21/23 06:12 Neut % (Auto) 68.2 % 03/21/23 06:12 Lymph % (Auto) 17.2 % 03/21/23 06:12 Waller % (Auto) 9.5 % 03/21/23 06:12 Eos % (Auto) 3.9 % 03/21/23 06:12 Baso % (Auto) 0.9 % 03/21/23 06:12 Reticulocyte % (Auto) 1.4 % (0.5-2.0) 03/19/23 14:17 Neut # (Auto) 4.00 K/uL (1.40-6.50) 03/21/23 06:12 Lymph # (Auto) 1.01 K/uL (1.20-3.40) L 03/21/23 06:12 Waller # (Auto) 0.56 K/uL (0.11-0.59) 03/21/23 06:12 Eos # (Auto) 0.23 K/uL (0.00-0.50) 03/21/23 06:12 Baso # (Auto) 0.05 K/uL (0.00-0.20) 03/21/23 06:12 Reticulocyte # 0.04 10^6/uL (0.02-0.10) 03/19/23 14:17 Immature Gran # (Auto) 0.02 K/uL (0.01-0.20) 03/21/23 06:12 Hypersegmented Neuts 1+ 03/19/23 14:17 Polychromasia 1+ 03/21/23 06:12 Hypochromasia Present 03/20/23 04:12 Ovalocytes 1+ 03/19/23 14:17 PT 14.1 Seconds (9.0-12.0) H 03/19/23 14:17 INR 1.3 (0.9-1.1) H 03/19/23 14:17 APTT 24 Seconds (21-31) 03/19/23 14:17 PTT Ratio 0.9 03/19/23 14:17 VBG pH 7.40 (7.36-7.41) 03/20/23 04:13 VBG pCO2 46 mmHg (38-50) 03/20/23 04:13 VBG pO2 50 mmHg 03/20/23 04:13 VBG HCO3 29 mmol/L 03/20/23 04:13 VBG O2 Saturation 79.8 % 03/20/23 04:13 VBG Base Excess 3.0 mEq/L 03/20/23 04:13 Sodium 143 mmol/L (136-145) 03/21/23 06:12 Potassium 3.5 mmol/L (3.5-5.1) 03/21/23 06:12 Chloride 113 mmol/L (98-107) H 03/21/23 06:12 Carbon Dioxide 27 mmol/L (21-32) 03/21/23 06:12 Anion Gap 3 (3-11) 03/21/23 06:12 BUN 19 mg/dl (6-23) D 03/21/23 06:12 Creatinine 0.78 mg/dl (0.6-1.2) 03/21/23 06:12 Est Cr Clr Drug Dosing 64.1 ml/min 03/21/23 06:12 Est GFR ( Amer) 97.1 ml/min 03/21/23 06:12 Est GFR (Non-Af Amer) 83.8 ml/min 03/21/23 06:12 BUN/Creatinine Ratio 24.4 (10-20) H 03/21/23 06:12 Glucose 99 mg/dl (70-99(Fasting)) 03/21/23 06:12 Calcium 7.9 mg/dl (8.6-10.3) L 03/21/23 06:12 Phosphorus 2.8 mg/dl (2.5-4.9) 03/20/23 04:12 Magnesium 2.1 mg/dl (1.7-2.4) 03/20/23 04:12 Iron TNP 03/19/23 14:17 Unsaturated IBC 148 mcg/dl (155-355) L 03/19/23 14:17 Transferrin 246 mg/dl (200-360) 03/19/23 14:17 Ferritin 19.4 ng/ml (8-388) 03/19/23 14:17 Total Bilirubin 1.1 mg/dl (0.2-1.0) H 03/20/23 04:12 Direct Bilirubin 0.2 mg/dl (0-0.2) 03/19/23 14:17 AST 11 U/L (13-39) L 03/20/23 04:12 ALT 5 U/L (7-52) L 03/20/23 04:12 Alkaline Phosphatase 40 U/L (34-104) 03/20/23 04:12 Troponin I High Sens 9.8 pg/ml (0-14) 03/19/23 14:17 Total Protein 4.6 gm/dl (6.0-8.3) L D 03/20/23 04:12 Albumin 2.4 gm/dl (3.4-5.0) L 03/20/23 04:12 Globulin 2.2 gm/dl (2.5-4.0) L 03/20/23 04:12 Albumin/Globulin Ratio 1.1 (0.9-2) 03/20/23 04:12 Lipase 37 U/L (11-82) 03/19/23 14:17 POC Stool Occult Blood Positive (Negative) A 03/19/23 18:55 Adenovirus (PCR) Not Detected (NotDetected) 03/19/23 14:38 B. pertussis DNA (PCR) Not Detected (NotDetected) 03/19/23 14:38 B.parapertussis DNA PCR Not Detected (NotDetected) 03/19/23 14:38 C. pneumoniae DNA (PCR) Not Detected (NotDetected) 03/19/23 14:38 Coronavirus OC43 (PCR) Not Detected (NotDetected) 03/19/23 14:38 Coronavirus HKU1 (PCR) Not Detected (NotDetected) 03/19/23 14:38 Coronavirus 229E (PCR) Not Detected (NotDetected) 03/19/23 14:38 SARS-CoV-2 (PCR) Not Detected (NotDetected) 03/19/23 14:38 Coronavirus NL63 (PCR) Not Detected (NotDetected) 03/19/23 14:38 Human Metapneumovir PCR Not Detected (NotDetected) 03/19/23 14:38 Influenza Type A (PCR) Not Detected (NotDetected) 03/19/23 14:38 Influenza Type B (PCR) Not Detected (NotDetected) 03/19/23 14:38 M. pneumoniae (PCR) Not Detected (NotDetected) 03/19/23 14:38 Parainfluenza 1 (PCR) Not Detected (NotDetected) 03/19/23 14:38 Parainfluenza 2 (PCR) Not Detected (NotDetected) 03/19/23 14:38 Parainfluenza 3 (PCR) Not Detected (NotDetected) 03/19/23 14:38 Parainfluenza 4 (PCR) Not Detected (NotDetected) 03/19/23 14:38 RSV (PCR) Not Detected (NotDetected) 03/19/23 14:38 Entero/Rhino (PCR) Not Detected (NotDetected) 03/19/23 14:38 Blood Type AB Positive 03/19/23 14:17 Blood Type Recheck AB Positive 03/19/23 17:23 Antibody Screen NEGATIVE 03/19/23 14:17 Crossmatch See Detail 03/19/23 14:17 Impressions Abdomen/Pelvis CT 03/19/23 15:[address] WITH IV CONTRAST CT DOSE: 349.67 mGy.cm HISTORY: Acute generalized abdominal pain hematemesis/melena TECHNIQUE: Multiaxial CT images of the abdomen and pelvis were performed following the IV administration of 94 cc of Optiray, A dose lowering technique was utilized adhering to the principles of ALARA. COMPARISON STUDY: None. FINDINGS: Mild subsegmental bibasilar atelectasis versus scarring. No free air. Unremarkable spleen, pancreas and right adrenal gland. Mild benign nodular thickening of the left adrenal gland. Cholecystectomy. Patency of the hepatic and portal veins. Sclerotic liver with abdominal varicosities. Recanalized umbilical vein. No discrete hepatic mass identified. Unremarkable left kidney. Right-sided rotated pelvic kidney. There is urothelial thickening of the right renal collecting system. Unremarkable urinary bladder and uterus. Atherosclerosis of the aorta without aneurysm. Borderline enlarged retroperitoneal lymph nodes measure up to 10 mm with subcentimeter lymph nodes of the mesenteric root. Distal esophageal an gastric varicosities. Layering hyperdense material within the stomach. No bowel obstruction. Internal hemorrhoids are suggested. Scattered large and small bowel air-fluid levels. Mild wall thickening noted within portions of the large bowel. Normal appendix. Small bowel loops measure up to 2.6 cm. No acute fracture. IMPRESSION: 1. Cirrhosis with abdominal varicosities and recanalized umbilical vein compatible with portal venous hypertension. No ascites. 2. Distal esophageal and gastric varicosities noted with layering hyperdense material within the stomach, likely secondary to bleeding varicosities. 3. No bowel obstruction or pneumoperitoneum. 4. Scattered large and small bowel air-fluid levels noted which may be physiologic or represent an enteritis or ileus. 5. Areas of wall thickening within the large bowel, likely secondary to portal colopathy. 6. Mild right-sided urothelial thickening. Correlate with urinalysis in order to exclude infection. ACT 112: Negative or not required by law. The above report was generated using voice recognition software. It may contain grammatical, syntax or spelling errors. Electronically signed by: Yifan Jackson M.D. 03/19/2023 4:30 PM Chest X-Ray 03/20/23 03:52 XR chest 1V portable HISTORY: 58 years-old Female hypoxia acute hypoxia COMPARISON: 03/19/2023 TECHNIQUE: AP view of the chest FINDINGS: Cardiac silhouette is enlarged. Subsegmental bibasilar densities. Suggestion of pulmonary emphysema. No pneumothorax, large pleural effusion or overt pulmonary edema. Degenerative changes of the shoulders and spine. IMPRESSION: 1. Cardiomegaly without acute process of the chest. 2. Mild bibasilar opacities suggest atelectasis. ACT 112: Negative or not required by law. The above report was generated using voice recognition software. It may contain grammatical, syntax or spelling errors. Electronically signed by: Yifan Jackson M.D. 03/20/2023 7:26 AM (2) Cirrhosis Ascites presence: without ascites Hepatic cirrhosis type: unspecified hepatic cirrhosis Qualified Code(s): K74.60 - Unspecified cirrhosis of liver (3) Esophageal varices Esophageal varices bleeding: with bleeding Esophageal varices type: unspecified type Qualified Code(s): I85.01 - Esophageal varices with bleeding
[2023-03-21] MEDS: PANTOprazole 40 MG in SYRINGE 0 ML IV SCH (20:42)
[2023-03-21] MEDS: GABAPENTIN 600 MG TAB PO SCH (20:43)
[2023-03-21] MEDS: traZODone HCL 50 MG TAB PO SCH (20:44)
[2023-03-21] MEDS: cefTRIAXone SODIUM 1,000 MG in DEXTROSE 5 % MINI-B 50 ML IV SCH (20:45)
[2023-03-21] MEDS ORDERED: PANTOprazole 40 MG in SYRINGE 0 ML IV SCH (21:00)
[2023-03-22] MEDS: LEVOTHYROXINE SODIUM 150 MCG TABLET PO SCH (06:12)
[2023-03-22 06:58] LABS: Basophils # (auto) 0.05 K/uL (0.00-0.20); Basophils % (auto) 0.7 %; Eosinophils # (auto) 0.31 K/uL (0.00-0.50); Eosinophils % (auto) 4.1 %; Hematocrit (blood only) 26.6 % (37.0-47.0); Hemoglobin 8.2 g/dl (12.0-16.0); Immature Granulocytes # (auto) 0.03 K/uL (0.01-0.20); Immature Granulocytes % (auto) 0.4 %; Lymphocytes % (auto) 14.6 %; Mean Corpuscular Hemoglobin 27.1 pg (25.0-34.0); Mean Corpuscular Hgb Conc 30.8 g/dL (32.0-36.0); Mean Corpuscular Volume 87.8 fL (80.0-100.0); Mean Platelet Volume 10.4 fL (9.4-12.4); Monocytes # (auto) 0.71 K/uL (0.11-0.59); Monocytes % (auto) 9.4 %; Neutrophils # (auto) 5.32 K/uL (1.40-6.50); Neutrophils % (auto) 70.8 %; Platelet Count 171 K/uL (130-400); RDW Coefficient of Variation 16.1 % (11.5-14.5); RDW Standard Deviation 51.2 fL (36.4-46.3); Red Blood Count 3.03 M/uL (4.20-5.40); White Blood Count 7.52 K/ul (4.8-10.8)
[2023-03-22] MEDS ORDERED: ALBUMIN 25% 25 GM/100 ML VIAL IV ONE (07:45)
[2023-03-22] MEDS ORDERED: AMBRISENTAN PO SCH (09:00)
[2023-03-22] MEDS ORDERED: tadalafiL PO SCH (09:00)
[2023-03-22] MEDS: FERROUS SULFATE 325 MG TAB PO SCH (09:20)
[2023-03-22] MEDS: MYCOPHENOLATE MOFETIL 250 MG CAP PO SCH (09:21)
[2023-03-22] MEDS: CALCIUM CITRATE 950 MG TAB PO SCH (09:22)
[2023-03-22] MEDS: UMECLIDINIUM BROMIDE 62.5MCG/BLISTER 7 PUFFS/INHALER INH SCH (09:23)
[2023-03-22] MEDS: FLUTICASONE/VILANTEROL 200/25MCG 14 PUFFS/INHALER INH SCH (09:24)
[2023-03-22] MEDS: POTASSIUM CHLORIDE CRTAB 20 MEQ TABCR PO SCH (10:00)
[2023-03-22] MEDS: PANTOprazole 40 MG in SYRINGE 0 ML IV SCH (10:00)
--- NOTE | 2023-03-22 13:37 | Hospitalist Progress Note ---
Date of Service March 22, 2023 Assessment & Plan (1) Acute GI hemorrhage: (2) Cirrhosis: (3) Esophageal varices: (4) Autoimmune hepatitis: (5) SLE (systemic lupus erythematosus related syndrome): (6) Pulmonary HTN: (7) AVM (arteriovenous malformation): (8) DDD (degenerative disc disease), thoracolumbar: (9) Insomnia: (10) COPD (chronic obstructive pulmonary disease): Plan Pt is a 58yoF with PMhx significant for cirrhosis with esophageal varices and AVMs, autoimmune hepatitis, COPD on chronic oxygen, pulmonary HTN, DDD, Graves s/p thyroidectomy with postop hypothyroidism, and insomnia admitted with an acute GI bleed (recurrent episodes of hematemesis and melena). Acute upper GI Bleed Cirrhosis with esophageal varices AVM Hypotension Hgb 7.0 on admission S/P 2 units PRBCs --CT abdomen pelvis noting cirrhosis with abdominal varicosities and findings suggestive of portal venous hypertension. Also noted "distal esophageal and gastric varicosities with layering hyperdense material within the stomach, likely secondary to bleeding varicosities." --S/P EGD: A post variceal banding scar was found in the distal esophagus. A small hiatal hernia was present. The examined duodenum was normal. The cardia and gastric fundus were normal on retroflexion. --Hb 8.2 today -- IV octreotide discontinued Continue Protonix twice a day Tolerated regular diet Appreciate GI input discussed on 03/22/2023: Advised to follow-up with her GI/transport pilot in [facility] for further evaluation Type I pulmonary HTN-on home tadalafil (or formulary alternative) and ambrisentan. Continue medications with holding parameters COPD- continue home oxygen and inhalers. She is at 2 L of oxygen at rest, 3 L on exertion at baseline Hypothyroidism- continue levothyroxine Autoimmune hepatitis, SLE- continue home cellcept DDD- continue home gabapentin, tramadol Insomnia- continue home trazodone DVT Px: SCDs in setting of acute GI bleed requiring transfusion CODE STATUS: Full code Admission and Anticipated Discharge Date Admission Date: March 19, 2023 Subjective Patient is seen and examined at bedside Had 1 loose bowel movement this morning Reports chronic back pain Denies any black stools, bright red blood stools Discussed with gastroenterology today Denies any chest pain, dyspnea, dizziness Admits to having chronic low blood pressure Review of Systems Review of Systems: All systems reviewed & are unremarkable except as noted in Subjective Physical Exam Physical Exam: Physical Exam: Vitals signs as noted above General Appearance:Thin, Frail, Chronic ill appearing, no apparent distress Head: normocephalic, Atraumatic Eyes: normal inspection, EOMI Neck: supple, Trachea midline Respiratory/Chest: Normal breath sounds, CTA, No accessory muscle use Cardiovascular: S1, S2, No murmur Abdomen/GI:Soft, Non tender, Bowel sounds present Extremities/Musculoskeletal:normal inspection, no edema Neurologic/Psych:AAOX3, grossly no focal neurological deficits Skin: normal color, warm Results & Data Results & Data Vital Signs (Past 12 Hours) Vital Signs Temp Pulse Resp BP Pulse Ox O2 Del Method 03/22/23 12:00 36.5 C 88 16 120/79 98 Nasal Cannula 03/22/23 07:00 36.5 C 80 18 101/59 L Nasal Cannula 03/22/23 02:51 36.5 C 70 18 92/51 L 95 Nasal Cannula Laboratory Results Short CBC 03/22/23 Range/Units 06:40 WBC 7.52 (4.8-10.8) K/ul Hgb 8.2 L (12.0-16.0) g/dl Hct 26.6 L (37.0-47.0) % Plt Count 171 (130-400) K/uL (2) Cirrhosis Ascites presence: without ascites Hepatic cirrhosis type: unspecified hepatic cirrhosis Qualified Code(s): K74.60 - Unspecified cirrhosis of liver (3) Esophageal varices Esophageal varices bleeding: with bleeding Esophageal varices type: unspecified type Qualified Code(s): I85.01 - Esophageal varices with bleeding
--- NOTE | 2023-03-22 14:13 | Discharge Summary ---
Date of Service March 22, 2023 Admission HPI Per Admitting Provider Pt with GI bleeding for EGD Admission Exam Per Admitting Provider General: Alert, oriented. No acute distress Skin: No noted rashes or bruises Psych: Appropriate mood and affect Neuro: No gross deficits HEENT: NC/AT Chest: Nontender to palpation. CV: RRR Resp: Breath sounds clear bilaterally, no increased effort of breathing. Abdomen:Soft, nontender, nondistended. Extremities: No edema in lower extremities bilaterally. Principal Diagnosis Acute upper GI Bleed Cirrhosis with esophageal varices AVM Hypotension Discharge Data Allergies Allergy/AdvReac Type Severity Reaction Status Date / Time hydromorphone [From Dilaudid] Allergy Hives Verified 03/20/23 07:39 Consultations 03/19/23 17:44 Consult Gastroenterology Routine ED Decision to Admit Stat Procedures Performed Operation Date: 03/21/23 16:30 Actual Procedures p Esophagogastroduodenoscopy - Marcos Saleh MD Laboratory Results WBC 7.52 K/ul (4.8-10.8) 03/22/23 06:40 RBC 3.03 M/uL (4.20-5.40) L 03/22/23 06:40 Hgb 8.2 g/dl (12.0-16.0) L 03/22/23 06:40 Hct 26.6 % (37.0-47.0) L 03/22/23 06:40 MCV 87.8 fL (80.0-100.0) 03/22/23 06:40 MCH 27.1 pg (25.0-34.0) 03/22/23 06:40 MCHC 30.8 g/dL (32.0-36.0) L 03/22/23 06:40 RDW Std Deviation 51.2 fL (36.4-46.3) H 03/22/23 06:40 RDW Coeff of Paras 16.1 % (11.5-14.5) H 03/22/23 06:40 Plt Count 171 K/uL (130-400) 03/22/23 06:40 MPV 10.4 fL (9.4-12.4) 03/22/23 06:40 Immature Gran % (Auto) 0.4 % 03/22/23 06:40 Neut % (Auto) 70.8 % 03/22/23 06:40 Lymph % (Auto) 14.6 % 03/22/23 06:40 [place] % (Auto) 9.4 % 03/22/23 06:40 Eos % (Auto) 4.1 % 03/22/23 06:40 Baso % (Auto) 0.7 % 03/22/23 06:40 Reticulocyte % (Auto) 1.4 % (0.5-2.0) 03/19/23 14:17 Neut # (Auto) 5.32 K/uL (1.40-6.50) 03/22/23 06:40 Lymph # (Auto) 1.10 K/uL (1.20-3.40) L 03/22/23 06:40 [place] # (Auto) 0.71 K/uL (0.11-0.59) H 03/22/23 06:40 Eos # (Auto) 0.31 K/uL (0.00-0.50) 03/22/23 06:40 Baso # (Auto) 0.05 K/uL (0.00-0.20) 03/22/23 06:40 Reticulocyte # 0.04 10^6/uL (0.02-0.10) 03/19/23 14:17 Immature Gran # (Auto) 0.03 K/uL (0.01-0.20) 03/22/23 06:40 Hypersegmented Neuts 1+ 03/19/23 14:17 Polychromasia 1+ 03/21/23 06:12 Hypochromasia Present 03/20/23 04:12 Ovalocytes 1+ 03/19/23 14:17 PT 14.1 Seconds (9.0-12.0) H 03/19/23 14:17 INR 1.3 (0.9-1.1) H 03/19/23 14:17 APTT 24 Seconds (21-31) 03/19/23 14:17 PTT Ratio 0.9 03/19/23 14:17 VBG pH 7.40 (7.36-7.41) 03/20/23 04:13 VBG pCO2 46 mmHg (38-50) 03/20/23 04:13 VBG pO2 50 mmHg 03/20/23 04:13 VBG HCO3 29 mmol/L 03/20/23 04:13 VBG O2 Saturation 79.8 % 03/20/23 04:13 VBG Base Excess 3.0 mEq/L 03/20/23 04:13 Sodium 143 mmol/L (136-145) 03/21/23 06:12 Potassium 3.5 mmol/L (3.5-5.1) 03/21/23 06:12 Chloride 113 mmol/L (98-107) H 03/21/23 06:12 Carbon Dioxide 27 mmol/L (21-32) 03/21/23 06:12 Anion Gap 3 (3-11) 03/21/23 06:12 BUN 19 mg/dl (6-23) D 03/21/23 06:12 Creatinine 0.78 mg/dl (0.6-1.2) 03/21/23 06:12 Est Cr Clr Drug Dosing 64.1 ml/min 03/21/23 06:12 Est GFR ( Amer) 97.1 ml/min 03/21/23 06:12 Est GFR (Non-Af Amer) 83.8 ml/min 03/21/23 06:12 BUN/Creatinine Ratio 24.4 (10-20) H 03/21/23 06:12 Glucose 99 mg/dl (70-99(Fasting)) 03/21/23 06:12 Calcium 7.9 mg/dl (8.6-10.3) L 03/21/23 06:12 Phosphorus 2.8 mg/dl (2.5-4.9) 03/20/23 04:12 Magnesium 2.1 mg/dl (1.7-2.4) 03/20/23 04:12 Iron TNP 03/19/23 14:17 Unsaturated IBC 148 mcg/dl (155-355) L 03/19/23 14:17 Transferrin 246 mg/dl (200-360) 03/19/23 14:17 Ferritin 19.4 ng/ml (8-388) 03/19/23 14:17 Total Bilirubin 1.1 mg/dl (0.2-1.0) H 03/20/23 04:12 Direct Bilirubin 0.2 mg/dl (0-0.2) 03/19/23 14:17 AST 11 U/L (13-39) L 03/20/23 04:12 ALT 5 U/L (7-52) L 03/20/23 04:12 Alkaline Phosphatase 40 U/L (34-104) 03/20/23 04:12 Troponin I High Sens 9.8 pg/ml (0-14) 03/19/23 14:17 Total Protein 4.6 gm/dl (6.0-8.3) L D 03/20/23 04:12 Albumin 2.4 gm/dl (3.4-5.0) L 03/20/23 04:12 Globulin 2.2 gm/dl (2.5-4.0) L 03/20/23 04:12 Albumin/Globulin Ratio 1.1 (0.9-2) 03/20/23 04:12 Lipase 37 U/L (11-82) 03/19/23 14:17 POC Stool Occult Blood Positive (Negative) A 03/19/23 18:55 Adenovirus (PCR) Not Detected (NotDetected) 03/19/23 14:38 B. pertussis DNA (PCR) Not Detected (NotDetected) 03/19/23 14:38 B.parapertussis DNA PCR Not Detected (NotDetected) 03/19/23 14:38 C. pneumoniae DNA (PCR) Not Detected (NotDetected) 03/19/23 14:38 Coronavirus OC43 (PCR) Not Detected (NotDetected) 03/19/23 14:38 Coronavirus HKU1 (PCR) Not Detected (NotDetected) 03/19/23 14:38 Coronavirus 229E (PCR) Not Detected (NotDetected) 03/19/23 14:38 SARS-CoV-2 (PCR) Not Detected (NotDetected) 03/19/23 14:38 Coronavirus NL63 (PCR) Not Detected (NotDetected) 03/19/23 14:38 Human Metapneumovir PCR Not Detected (NotDetected) 03/19/23 14:38 Influenza Type A (PCR) Not Detected (NotDetected) 03/19/23 14:38 Influenza Type B (PCR) Not Detected (NotDetected) 03/19/23 14:38 M. pneumoniae (PCR) Not Detected (NotDetected) 03/19/23 14:38 Parainfluenza 1 (PCR) Not Detected (NotDetected) 03/19/23 14:38 Parainfluenza 2 (PCR) Not Detected (NotDetected) 03/19/23 14:38 Parainfluenza 3 (PCR) Not Detected (NotDetected) 03/19/23 14:38 Parainfluenza 4 (PCR) Not Detected (NotDetected) 03/19/23 14:38 RSV (PCR) Not Detected (NotDetected) 03/19/23 14:38 Entero/Rhino (PCR) Not Detected (NotDetected) 03/19/23 14:38 Blood Type AB Positive 03/19/23 14:17 Blood Type Recheck AB Positive 03/19/23 17:23 Antibody Screen NEGATIVE 03/19/23 14:17 Crossmatch See Detail 03/19/23 14:17 Impressions Abdomen/Pelvis CT 03/19/23 15:[address] WITH IV CONTRAST CT DOSE: 349.67 mGy.cm HISTORY: Acute generalized abdominal pain hematemesis/melena TECHNIQUE: Multiaxial CT images of the abdomen and pelvis were performed following the IV administration of 94 cc of Optiray, A dose lowering technique was utilized adhering to the principles of ALARA. COMPARISON STUDY: None. FINDINGS: Mild subsegmental bibasilar atelectasis versus scarring. No free air. Unremarkable spleen, pancreas and right adrenal gland. Mild benign nodular thickening of the left adrenal gland. Cholecystectomy. Patency of the hepatic and portal veins. Sclerotic liver with abdominal varicosities. Recanalized umbilical vein. No discrete hepatic mass identified. Unremarkable left kidney. Right-sided rotated pelvic kidney. There is urothelial thickening of the right renal collecting system. Unremarkable urinary bladder and uterus. Atherosclerosis of the aorta without aneurysm. Borderline enlarged retroperitoneal lymph nodes measure up to 10 mm with subcentimeter lymph nodes of the mesenteric root. Distal esophageal an gastric varicosities. Layering hyperdense material within the stomach. No bowel obstruction. Internal hemorrhoids are suggested. Scattered large and small bowel air-fluid levels. Mild wall thickening noted within portions of the large bowel. Normal appendix. Small bowel loops measure up to 2.6 cm. No acute fracture. IMPRESSION: 1. Cirrhosis with abdominal varicosities and recanalized umbilical vein co mpatible with portal venous hypertension. No ascites. 2. Distal esophageal and gastric varicosities noted with layering hyperdense material within the stomach, likely secondary to bleeding varicosities. 3. No bowel obstruction or pneumoperitoneum. 4. Scattered large and small bowel air-fluid levels noted which may be physiologic or represent an enteritis or ileus. 5. Areas of wall thickening within the large bowel, likely secondary to portal colopathy. 6. Mild right-sided urothelial thickening. Correlate with urinalysis in order to exclude infection. ACT 112: Negative or not required by law. The above report was generated using voice recognition software. It may contain grammatical, syntax or spelling errors. Electronically signed by: Yifan Jackson M.D. 03/19/2023 4:30 PM Chest X-Ray 03/20/23 03:52 XR chest 1V portable HISTORY: 58 years-old Female hypoxia acute hypoxia COMPARISON: 03/19/2023 TECHNIQUE: AP view of the chest FINDINGS: Cardiac silhouette is enlarged. Subsegmental bibasilar densities. Suggestion of pulmonary emphysema. No pneumothorax, large pleural effusion or overt pulmonary edema. Degenerative changes of the shoulders and spine. IMPRESSION: 1. Cardiomegaly without acute process of the chest. 2. Mild bibasilar opacities suggest atelectasis. ACT 112: Negative or not required by law. The above report was generated using voice recognition software. It may contain grammatical, syntax or spelling errors. Electronically signed by: Yifan Jackson M.D. 03/20/2023 7:26 AM Ordered Studies 03/19/23 15:10 CT abd pelvis IV con only Stat Hospital Course (1) Acute GI hemorrhage: (2) Cirrhosis: (3) Esophageal varices: (4) Autoimmune hepatitis: (5) SLE (systemic lupus erythematosus related syndrome): (6) Pulmonary HTN: (7) AVM (arteriovenous malformation): (8) DDD (degenerative disc disease), thoracolumbar: (9) Insomnia: (10) COPD (chronic obstructive pulmonary disease): Plan Pt is a 58yoF with PMhx significant for cirrhosis with esophageal varices and AVMs, autoimmune hepatitis, COPD on chronic oxygen, pulmonary HTN, DDD, Graves s/p thyroidectomy with postop hypothyroidism, and insomnia admitted with an acute GI bleed (recurrent episodes of hematemesis and melena). Acute upper GI Bleed Cirrhosis with esophageal varices AVM Hypotension Hgb 7.0 on admission S/P 2 units PRBCs --CT abdomen pelvis noting cirrhosis with abdominal varicosities and findings suggestive of portal venous hypertension. Also noted "distal esophageal and gastric varicosities with layering hyperdense material within the stomach, lik sonia secondary to bleeding varicosities." --S/P EGD: A post variceal banding scar was found in the distal esophagus. A small hiatal hernia was present. The examined duodenum was normal. The cardia and gastric fundus were normal on retroflexion. --Hb 8.2 today -- IV octreotide discontinued Continue Protonix twice a day Tolerated regular diet Appreciate GI input discussed on 03/22/2023: Advised to follow-up with her GI/[facility] in [facility] for further evaluation Type I pulmonary HTN-on home tadalafil (or formulary alternative) and ambrisentan. Continue medications with holding parameters COPD- continue home oxygen and inhalers. She is at 2 L of oxygen at rest, 3 L on exertion at baseline Hypothyroidism- continue levothyroxine Autoimmune hepatitis, SLE- continue home cellcept DDD- continue home gabapentin, tramadol Insomnia- continue home trazodone DVT Px: SCDs in setting of acute GI bleed requiring transfusion CODE STATUS: Full code Total Time Total Time Spent Total Time Spent (In Minutes): 65 minutes Discharge Plan Discharge Items Patient Disposition: Home - Self-Care Reason For Visit: HEMATEMESIS Discharge Diagnosis: Acute upper GI Bleed Cirrhosis with esophageal varices AVM Hypotension Activity: Per Instructions section Exercise/Sports: Wait until after follow-up appointment Non-emergency contact: Primary Care Provider and [facility] Call non-emergency contact if: you have any medication questions, your symptoms worsen, your pain is concerning for you and you have a fever Follow-up/Referrals: Dr Simon Armando [Other] (Please call to schedule appointment with Gastroenterology/Hepatology.) Reggie Eddy MD [Primary Care Provider] - (Date & Time 03/27/2023 10:00 AM Provider Leonardo Pino PA-C Department [facility] ) Diet: Regular Addtl Attending Provider Instructions: Follow-up with your primary care physician as scheduled Follow-up with your telemetry registered nurse Dr. Armando in 2 weeks as advised. ----Monitor your blood pressure regularly at home. Discuss with your physician for further adjustment of medications as needed. Seek immediate medical attention if your symptoms reoccur or worsen Please take all medications as instructed on discharge list below. Please call if you have any questions or problems. You can reach a [facility] hospitalist on duty at [facility] 24 hours a day by calling [phone] Pending Studies at Discharge: No Stand-Alone Forms: My [facility], Smoking Cessation Medications and DC Order Prescriptions: New pantoprazole [Protonix] 40 mg tablet,delayed release (DR/EC) 40 mg PO BID Qty: 60 1RF Continued mycophenolate mofetil 500 mg tablet 500 mg PO BID levothyroxine 150 mcg tablet 150 mcg DAILY gabapentin 300 mg capsule 600 mg HS albuterol sulfate 90 mcg/actuation HFA aerosol inhaler 2 puff INHALATION BID PRN (Reason: Wheezing) ambrisentan 10 mg tablet 10 mg PO DAILY fluticasone furoate-vilanterol [Breo Ellipta] 200-25 mcg/dose blister with device 1 inh INHALATION DAILY torsemide 20 mg tablet See Rx Instructions .ROUTE .COMPLEX Rx Instructions: Take 4 tabs daily trazodone 50 mg tablet 50 mg HS spironolactone 100 mg tablet See Rx Instructions .ROUTE .COMPLEX Rx Instructions: 1.5 tabs qAM tramadol 50 mg tablet 100 mg Q6H nadolol 40 mg tablet 40 mg QAM fluticasone propionate 50 mcg/actuation spray,suspension 2 spray INTRANASAL BID tiotropium bromide [Spiriva with HandiHaler] 18 mcg capsule, w/inhalation device 1 cap INHALATION tadalafil (pulm. hypertension) 20 mg tablet 40 mg QAM Slow-Mag 64 mg Tablet Extended Release See Rx Instructions .ROUTE .COMPLEX Rx Instructions: 4 tabs qAM ferrous sulfate [Iron (ferrous sulfate)] 325 mg (65 mg iron) Tablet 325 mg PO BID calcium citrate 200 mg (950 mg) Tablet 400 mg PO BID lactulose 10 gram/15 mL (15 mL) Solution 30 ml PO TID PRN (Reason: Constipation) potassium chloride 20 mEq Tablet Extended Release 20 meq PO DAILY Discontinued omeprazole 20 mg Tablet,Delayed Release (Dr/Ec) 20 mg PO BID Discharge Orders: Discharge Order (Routine); Ordered 03/22/23 Ordered By: Sanket Castellanos Admission Data Admit Date/Time: 03/19/23 18:08 Attending Provider: aSnket Castellanos Admit Provider: Donna Urrutia Primary Care Provider: Reggie Eddy Other Providers: Donna Urrutia; Johanny Pascal; Alexi Obregon; Alpa Rosado; Gisselle Conrad; Karolina Pete; Stephy Montalvo; Alfonso Sánchez; Sebas Ivey; Tacos Bahena; Sharita Da Silva; Juanita Sanchez; Marcos Saleh; Kendra Fan; Pema Davila; Millie Morel; Adelaida Sood; Flavio Martin; Wong Box; Lawrence Garrido; Kaitlynn Wilcox; Alexa Larry Jr Other Interventions: Discharge Summary Assessment (RN) Last Done: 03/21/23 09:08
== END 2023-03-22 16:30 | disposition home or self-care (01) | DRG 432 ==
LOC: ED 13:42 → 2S 18:08 → MERGE 18:08 → SUATTDRO 18:08 → 2S 22:51